=== PATIENT | female | born 1955 | race Caucasian/White ===

== ENCOUNTER 2020-07-09 11:36 | Outpatient (REF) | payer OTHER, SELFPAY ==
--- NOTE | 2020-07-09 11:36 | CT_ITS ---
EXAMINATION: CT CHEST WITHOUT CONTRAST CLINICAL INFORMATION: Follow-up pulmonary nodule COMPARISON: Previous chest CT scans most recent December 2019 TECHNIQUE: Multidetector volumetric CT imaging of the chest was done. Axial MIP volume rendering provided. Sagittal and coronal reformatted images were obtained. This CT examination was performed using dose optimization techniques as appropriate, variously including the following: *Automated exposure control *Adjustment of mA and/or kV according to patient size (this includes techniques or standardized protocols for targeted exams where dose is matched to indication/reason for exam; i.e. extremities or head) *Use of iterative reconstruction technique DLP: 153 mGy-cm FINDINGS: DATA SCIENTIST: LUNGS: There is evidence of emphysema. There is pleural thickening and peripheral or subpleural 3 x 4 mm right upper lobe nodule axial image 114 series 7 that is stable. There are new clustered heterogeneous and groundglass attenuation nodules in the left upper lobe. The largest nodule measures 8 x 14 mm axial image 141 series 7. There are clustered peribronchial nodules and tree-in-bud appearance seen in the posterior segment of the right upper lobe. This appears slightly increased, for example axial image 261 series 7. There is a new adjacent peripheral or subpleural slightly heterogeneous nodule measuring 6 x 16 mm axial image 268 series 7. There are new peribronchial nodules or tree-in-bud appearance in the anterior segment of the right upper lobe. There is an adjacent new peripheral or subpleural nodule measuring 4 x 10 mm axial image 306 series 4. There is a tree-in-bud appearance/airways disease in the right middle lobe that appears increased. There are scattered heterogeneous nodules and nodular opacities seen in both lower lobes that are new some of these have a peribronchial distribution and some appear peripheral. Largest nodule measures 8 mm in the left lower lobe axial image 318 series 7 and 7 mm in the medial right lower lobe adjacent to the esophagus axial image 319 series 7. There is a mild bronchiectasis, bronchial wall thickening and scattered areas of bronchial soft tissue opacification and bronchial nodules in the inferior segment of the lingula that is stable. No endobronchial or endotracheal lesion is seen. MEDIASTINUM: There are no enlarged lymph nodes. The heart does not appear enlarged. There is coronary artery calcification. There is no pericardial effusion. The thoracic aorta is normal in caliber. PLEURA: There is no pleural effusion. No pleural mass or thickening. AXILLA: No lymphadenopathy. UPPER ABDOMEN: The left kidney has been removed. There is evidence of atherosclerotic disease. OSSEOUS STRUCTURES: There are degenerative changes of the spine and scoliosis. IMPRESSION: Interval increase in peribronchial nodules/of tree-in-bud appearance suggestive of increasing airways disease.. Multiple new small groundglass attenuation and heterogeneous nodules, some associated with airways disease disease. Again, waxing and waning appearance favors an infectious or inflammatory process. New postoperative changes from left nephrectomy.
== END 2020-07-09 11:37 | disposition home or self-care (01) ==
LOC: HO.CT 11:36
PROVIDERS: PCP Internal Medicine; Visit Provider Internal Medicine Pulmonary Disease
DX: R91.8 Other nonspecific abnormal finding of lung field (principal)
CPT/HCPCS: 71250

== ENCOUNTER → 2020-07-22 15:18 | Outpatient (BNVA) | payer OTHER, SELFPAY | PROVIDERS: Visit Provider Internal Medicine Pulmonary Disease | DX: J44.9 Chronic obstructive pulmonary disease, unspecified (principal); G47.33 Obstructive sleep apnea (adult) (pediatric); R91.8 Other nonspecific abnormal finding of lung field | CPT/HCPCS: 99214 ==

== ENCOUNTER 2020-08-08 18:18 | Emergency (ER) | payer OTHER, SELFPAY ==
--- NOTE | 2020-08-08 18:49 | ED.URI ---
HPI - URI/Sore Throat General Chief Complaint: Upper Respiratory Symptoms Stated Complaint: fever Time Seen by Provider: 08/08/20 18:46 Source: patient Mode of arrival: ambulatory Limitations: no limitations History of Present Illness HPI Narrative: 65 y/o female with PMH of COPD, bronchiectasis, LANEY on CPAP, former smoker, renal cancer s/p recent nephrectomy who presents with 1 day of chills, fever, cough productive of yellow phlegm. She states today she had a fever of 101 at home which normalized with Tylenol. She has right lower rib pain when she cough and new yellow mucus. She checked her pulse oximetry at home and it briefly read 88% before increasing to mid 90's. She has been using her nebs and inhalers as directed. She denies chest pain, SOB, or RAVI. She denies nausea, vomiting, diarrhea, abd pain, urinary symptoms. MD elicited complaint: fever and cough Pertinent past history: pneumonia and COPD Onset (ago): day(s) (1) Consistency: intermittent Severity: moderate Description of mucous: yellow Able to tolerate fluids by mouth: Yes Exacerbating factors: deep breaths Relieving factors: NSAID and OTC cold medicine Associated symptoms: fever, chills, headache and cough Treatments prior to arrival: acetaminophen Related Data Home Medications Medication Instructions Recorded Confirmed albuterol sulfate 90 mcg/actuation 2 puff INHALATION QID PRN 07/22/20 aerosol inhaler amitriptyline 75 mg tablet 75 mg PO DAILY 07/22/20 atorvastatin 10 mg tablet 10 mg PO DAILY 07/22/20 bupropion HCl 150 mg 24 hr tablet, mg PO 07/22/20 extended release clonazepam 0.5 mg tablet 0.5 mg PO TID 07/22/20 cyclosporine 0.05 % eye drops in a 1 drp OPHTHALMIC (EYE) BID 07/22/20 dropperette fluticasone propionate 220 2 puff INHALATION BID 07/22/20 mcg/actuation HFA aerosol inhaler gabapentin 400 mg capsule 400 mg PO TID 07/22/20 hydrochlorothiazide 25 mg tablet 25 mg PO DAILY 07/22/20 ipratropium 0.5 mg-albuterol 3 mg ml INHALATION 07/22/20 (2.5 mg base)/3 mL nebulization soln nifedipine 30 mg tablet,extended 30 mg PO DAILY 10/21/20 release oxycodone 5 mg tablet 5 mg PO Q4H PRN 07/22/20 polyethylene glycol 3350 17 17 g PO DAILY 07/22/20 gram/dose oral powder sennosides 8.6 mg tablet 8.6 mg PO BEDTIME PRN 07/22/20 Previous Rx's Medication Instructions Recorded dexlansoprazole 60 mg 60 mg PO DAILY 90 Days #90 cap 07/06/20 capsule,biphase delayed release mometasone 0.1 % topical cream 1 applic TOPICAL BID #45 g 07/22/20 umeclidinium 62.5 mcg/actuation 1 inh INHALATION DAILY #30 cap 07/22/20 blister powder for inhalation cefpodoxime 200 mg PO Q12H #20 tab 08/08/20 doxycycline monohydrate 100 mg PO BID #20 cap 08/08/20 guaifenesin [Mucinex] 1,200 mg PO Q12H #10 tab 08/08/20 prednisone 40 mg PO DAILY #10 tab 08/08/20 Allergies Allergy/AdvReac Type Severity Reaction Status Date / Time Sulfa (Sulfonamide Allergy Severe ANAPHYLAXIS Verified 07/22/20 15:25 Antibiotics) Penicillins Allergy Mild RASH Verified 07/22/20 15:25 aspirin [ASA] Allergy Unknown UNKNOWN, Verified 07/22/20 15:25 stomach upset codeine [Codeine] Allergy Unknown NAUSEA & Verified 07/22/20 15:25 VOMITING diphenhydramine [Advil PM] Allergy Unknown Unknown Verified 07/22/20 15:25 ibuprofen [From ADVIL] Allergy Unknown UNKNOWN Verified 07/22/20 15:25 penicillin V Allergy Unknown anaphylaxis Verified 07/22/20 15:25 Review of Systems Review of Systems: Constitutional: + Fever, + Chills ENT/Mouth: No sore throat, No Rhinorrhea, No Swallowing Difficulty Eyes: No Eye Pain, No Swelling, No Redness Cardiovascular: No Chest Pain, No SOB, No Orthopnea, No Edema Respiratory: + Cough, + Sputum, No Wheezing, No dyspnea Gastrointestinal: No Nausea, No Vomiting, No Diarrhea, No abdominal Pain Genitourinary: No Dysuria, No Urinary Frequency, No Hematuria Musculoskeletal: No joint pain, No Myalgias Skin: No Skin Lesions, No rash Neuro: No Weakness, No Numbness, No Dizziness, + Mild Headache Psych: No Anxiety/Panic, No Depression Heme/Lymph: No Bruising, No Lymphadenopathy Endocrine: No Polyuria, No Polydipsia PMF Past Medical History Attestation statement: The following information was validated with the patient. Medical History (Updated 08/08/20 @ 20:31 by OMAIRA Crowder) GERD (gastroesophageal reflux disease) Surgical History (Updated 08/08/20 @ 19:07 by OMAIRA Crowder) History of nephrectomy Social History Social History (Updated 07/22/20 @ 15:25 by Pauline Obregon MA) Alcohol intake: never Smoking Status: Former smoker Years Smoked: 35 yrs Smoked in Last 30 Days: No Use of substances other than those prescribed or required for medical reasons: No Advance Directives: No Advance Directives Information Provided: No Physical Exam Vital Signs: Vital Signs: Last Vital Signs Temp 97.5 F 08/08/20 20:29 Pulse 92 08/08/20 20:29 Resp 16 08/08/20 20:29 BP 119/70 08/08/20 20:29 Pulse Ox 94 08/08/20 20:40 Body Mass Index 22.4 Appearance: Alert. Oriented X3. No acute distress. Eyes: Pupils equal, round and reactive to light. ENT: Pharynx normal. Neck: Normal inspection. Neck supple. CVS: tachycardic, regular rhythm. Pulses normal. Respiratory: No respiratory distress. Decreased breath sounds RLL with coarseness at bilateral bases, no wheezes. Abdomen: Soft and nontender. +BS x4 Skin: Skin warm and dry. Normal skin color. Normal skin turgor. No rashes. Extremities: No lower extremity edema. Negative Prasanth's sign. Neuro: Oriented X 3. No motor deficit. No sensory deficit. Course Course Course Narrative: 65 y/o with COPD, bronchiectasis presenting with fever 101, productive cough of yellow phlegm with generalized malaise. No SOB, RAVI, chest pain. She feels like she is getting another bout of pneumonia. She had a recent CT scan in Jul showing tree in bud opacities with plan to repeat it in 4 months. Possible COVID vs bacterial pneumonia. HR 112 on triage, now 103. She states her HR is always around 100-104, she has a FitBit and monitors it daily. Doubt PE given no SOB, chest pain and in the setting of fevers, malaise and productive cough more likely PNA. Will need to check ambulatory pulse oximetry. She is currently refusing blood work. Reevaluation(s) Reevaluation #1: CXR shows worsening pulmonary infiltrates right upper lobe, right lower lobe and left lower lobe. Patient continues to deline blood work. Agreeable to ambulatory pulse ox. If stable feel comfortable d/c'ing home with dual abx, prednisone taper, and PRN nebulizers at home. She agrees to monitor her O2 sats at home and follow up with her doctor on Monday. Reevaluation #2: Pulse ox remained 94% with ambulation. HR 80-100 wtih exertion and she had no dyspnea, SOB or chest pain. She is stable for discharge. Procedures Pulse Oximetry Interpretation Digit-Finger: Initial pulse oximetry readin Pulse Oximetry: 94 Actions Taken: none Additional Comments: pulse oximetry remained 94% at rest and with exertion. MDM - URI/Sore Throat Differential Diagnosis Differential diagnosis: Likely upper respiratory infection, viral infection, bronchitis, influenza and pharyngitis Medical Records Attestation: I reviewed the patient's medical records. Discharge Plan Discharge Clinical Impression: Pneumonia Qualifiers: Pneumonia type: due to unspecified organism Laterality: bilateral Lung location: lower lobe of lung Qualified Code(s): J18.9 - Pneumonia, unspecified organism Patient Disposition: Home, Self-Care Instructions: Bacterial Pneumonia (ED) Additional Instructions: You were tested for COVID-19 today. We will call you with the results in 2-4 days. Your chest x-ray today showed pneumonia in both lungs. We will start you on 2 antibiotics and steroids to help treat your pneumonia. Stay hydrated. Rest. Recommend using your nebulizer 2-3 times throughout the day while you are sick. Your oxygen levels were normal in the Emergency Room, including when you were walking. Encourage you to continue to monitor your oxygen levels at home with your pulse oximeter. If they are <88% or if you develop shortness of breath, difficulty breathing or chest pain call 911 or come back to the ER right way for further evaluation. Follow up with your doctor Monday morning. Prescriptions: New doxycycline monohydrate 100 mg capsule 100 mg PO BID Qty: 20 RF: 0 cefpodoxime 200 mg tablet 200 mg PO Q12H Qty: 20 RF: 0 prednisone 20 mg tablet 40 mg PO DAILY Qty: 10 RF: 0 Mucinex 1,200 mg tablet extended release 12hr 1,200 mg PO Q12H Qty: 10 RF: 0 No Action Dexilant 60 mg capsule,biphase delayed releas 60 mg PO DAILY 90 Days Qty: 90 RF: 3 mometasone 0.1 % cream 1 applic topical BID Qty: 45 RF: 0 umeclidinium [Incruse Ellipta] 62.5 mcg/actuation blister with device 1 inh inhalation DAILY Qty: 30 RF: 0
[2020-08-08 19:14] VITALS: BP 114/57; PULSE 112; RESP 16; TEMP 37.1; O2SAT 94; BMI 22.4
--- NOTE | 2020-08-08 19:20 | XR_ITS ---
EXAMINATION: XR CHEST CLINICAL INFORMATION: Fever with history of pneumonia COMPARISON: Chest CT dated 07/09/2020 and chest radiograph dated 01/24/2020 TECHNIQUE: Frontal view of the chest was obtained. FINDINGS: There is been significant worsening of appearances when compared to the prior CT from 07/09/2020. There is been progression of infiltrates present in the right upper lobe right lower lobe and left lower lobe. The right upper lobe is relatively spared. No pleural effusions are seen. On the CT scan, most of these findings appear to enhance tree-in-bud abnormalities but they are now significantly worse appearing more like consolidation/infiltrate. XR/XR chest 1V IMPRESSION: Worsening pulmonary infiltrates right upper lobe, right lower lobe and left lower lobe.
[2020-08-08 20:29] VITALS: BP 119/70; PULSE 92; RESP 16; TEMP 36.4; O2SAT 93
[2020-08-08 20:40] VITALS: O2SAT 94
== END 2020-08-08 20:56 | disposition home or self-care (01) ==
PROVIDERS: Physician Assistant; Emergency Provider Emergency Medicine; PCP Internal Medicine
DX: J18.9 Pneumonia, unspecified organism (principal); R05 Cough; R50.9 Fever, unspecified; Z79.899 Other long term (current) drug therapy; Z20.828 Contact with and (suspected) exposure to other viral communicable diseases; Z87.891 Personal history of nicotine dependence
CPT/HCPCS: 71045; 99283; 99284; U0003

== ENCOUNTER 2020-08-20 16:28 | Outpatient (REF) | payer OTHER, SELFPAY ==
[2020-08-20 17:27] LABS: Hematocrit 42.7 % (37-47); Hemoglobin 14.3 g/dl (12.0-16.0); Mean Corpuscular HGB Conc 33.5 g/dl (31.0-35.0); Mean Corpuscular Hemoglobin 30.3 pg (27.0-33.0); Mean Corpuscular Volume 90.5 fL (80-98); Mean Platelet Volume 8.8 fL (9.4-12.3); Platelet Count 396 X10*3/uL (160-400); Red Blood Count 4.72 X10*6/uL (4.20-5.50); Red Cell Distribution Width 11.9 % (11.0-16.0); White Blood Count 10.4 X10*3/uL (4.8-10.8)
[2020-08-20 17:34] LABS: Prothrombin Time 12.1 SEC (10.8-13.0)
[2020-08-20 17:48] LABS: Iron 88 mcg/dL (30-160); Percent Iron Saturation 25 % (15-50); Total Iron Binding Capacity 350 mcg/dL (228-428); Unsaturated Iron Binding 262 ug/dL
[2020-08-20 18:09] LABS: TSH reflex Free T4 2.37 mIU/mL (0.32-4.0)
[2020-08-20 18:21] LABS: Folate 3.9 ng/mL (> or = 4.0); Vitamin B12 510 pg/mL (200-900)
[2020-08-21 13:01] LABS: Ristocetin Cofactor 131 % NORMAL (42-200); Von Willebrand Factor Antigen 139 % (50-217)
[2020-08-21 13:27] LABS: Factor VIII Activity 147 % normal (50-180)
== END 2020-08-20 16:29 | disposition home or self-care (01) ==
LOC: HO.LAB 16:28
PROVIDERS: PCP Internal Medicine; Visit Provider Physician Assistant
DX: R23.8 Other skin changes (principal)
CPT/HCPCS: 36415; 82607; 82746; 83540; 84443; 85027; 85240; 85246; 85610

== ENCOUNTER 2020-09-16 12:15 | Outpatient (REF) | payer OTHER, SELFPAY ==
--- NOTE | 2020-09-16 12:20 | XR_ITS ---
EXAMINATION: XR CHEST CLINICAL INFORMATION: Chest pain COMPARISON: August 08, 2020 TECHNIQUE: 2 views of the chest were obtained. FINDINGS: There has been improvement in previously noted right upper lobe and right middle lobe disease since study of August 08, 2020 and no new focus of disease is appreciated. Heart normal size. No evidence of pulmonary edema. No pneumothorax or pleural effusion. XR/XR chest 2V IMPRESSION: Improving disease within the right upper lobe and right middle lobe.
== END 2020-09-16 12:16 | disposition home or self-care (01) ==
LOC: HO.XRAY 12:15
PROVIDERS: PCP Internal Medicine; Visit Provider Internal Medicine
DX: R07.9 Chest pain, unspecified (principal)
CPT/HCPCS: 71046

== ENCOUNTER 2020-10-07 14:20 | Outpatient (REF) | payer OTHER, SELFPAY | END 2020-10-07 14:21 | disposition home or self-care (01) | LOC: HO.LAB 14:20 | PROVIDERS: PCP Internal Medicine; Visit Provider Internal Medicine | DX: Z20.828 Contact with and (suspected) exposure to other viral communicable diseases (principal); R05 Cough; R50.9 Fever, unspecified | CPT/HCPCS: C9803; U0003 ==

== ENCOUNTER 2020-10-08 17:29 | Outpatient (REF) | payer OTHER, SELFPAY ==
--- NOTE | 2020-10-08 17:55 | XR_ITS ---
EXAMINATION: XR CHEST CLINICAL INFORMATION: Cough COMPARISON: Chest x-ray 09/16/2020. CT chest 07/09/2020 TECHNIQUE: 2 views of the chest were obtained. FINDINGS: There is multifocal patchy and hazy airspace opacities in throughout the right lung. There are patchy areas in the right upper lobe right lower lobe. These have progressed since the prior exam of 09/16/2020. There is suggestion of smaller hazy airspace opacity in the left mid lower lung in the perihilar lung. No pleural effusion. Heart size is normal. Cardiac and mediastinal contours are normal. There is no pulmonary vascular congestion. XR/XR chest 2V IMPRESSION: Multifocal airspace disease mostly affecting the right lung with possible small left perihilar airspace opacities well. Airspace disease has progressed since prior study of 09/16/2020.
== END 2020-10-08 17:30 | disposition home or self-care (01) ==
LOC: HO.XRAY 17:29
PROVIDERS: PCP Internal Medicine; Visit Provider Internal Medicine
DX: R05 Cough (principal)
CPT/HCPCS: 71046

== ENCOUNTER 2020-10-23 18:40 | Outpatient (REF) | payer OTHER, SELFPAY | END 2020-10-23 18:41 | disposition home or self-care (01) | LOC: HO.LNP 18:40 | PROVIDERS: Visit Provider Internal Medicine | DX: Z20.822 Contact with and (suspected) exposure to COVID-19 (principal); R50.9 Fever, unspecified | CPT/HCPCS: U0003 ==

== ENCOUNTER 2020-10-26 14:14 | Outpatient (REF) | payer OTHER, SELFPAY ==
[2020-10-26 15:28] LABS: Hematocrit 36.8 % (37-47); Hemoglobin 12.2 g/dl (12.0-16.0); Mean Corpuscular HGB Conc 33.2 g/dl (31.0-35.0); Mean Corpuscular Hemoglobin 29.3 pg (27.0-33.0); Mean Corpuscular Volume 88.5 fL (80-98); Mean Platelet Volume 9.2 fL (9.4-12.3); Platelet Count 397 X10*3/uL (160-400); Red Blood Count 4.16 X10*6/uL (4.20-5.50); Red Cell Distribution Width 11.9 % (11.0-16.0); White Blood Count 11.8 X10*3/uL (4.8-10.8)
[2020-10-26 15:50] LABS: Alanine Aminotransferase 12 U/L (0-31); Albumin Level 3.9 g/dL (3.5-5.0); Alkaline Phosphatase 103 U/L (39-117); Anion Gap 13 (12-20); Aspartate Amino Transferase 16 U/L (5-31); Bilirubin Direct 0.2 mg/dL (0.0-0.5); Bilirubin Total 0.6 mg/dL (0.0-1.0); Blood Urea Nitrogen 7 mg/dL (9-16); Calcium 8.6 mg/dL (8.4-10.2); Carbon Dioxide 36 mmol/L (22-29); Chloride 88 mmol/L (96-108); Estimated Glomerular Filt Rate > 60; Glucose Random 106 mg/dL (60-115); Potassium 3.1 mmol/l (3.3-5.1); Sodium 134 mmol/L (135-145); Total Protein 6.7 g/dL (6.5-8.0)
== END 2020-10-26 14:15 | disposition home or self-care (01) ==
LOC: HO.LAB 14:14
PROVIDERS: PCP Internal Medicine; Visit Provider Internal Medicine
DX: R50.9 Fever, unspecified (principal)
CPT/HCPCS: 36415; 80048; 80076; 85027

== ENCOUNTER 2020-10-28 14:38 | Outpatient (REF) | payer OTHER, SELFPAY ==
--- NOTE | 2020-10-28 14:42 | XR_ITS ---
EXAMINATION: XR CHEST CLINICAL INFORMATION: Chest pain. COMPARISON: Chest 10/08/2020 TECHNIQUE: 2 views of the chest were obtained. FINDINGS: The lungs are well-expanded with mild tenting of the left anterior diaphragm. There is increased interstitial throughout both lungs without confluent infiltrate. Likely interstitial pneumonitis, slightly improved since 10/08/2020 exam. No pleural effusion seen. The heart size is normal. No gross bony abnormality. XR/XR chest 2V IMPRESSION: Bilateral interstitial pneumonitis/infiltrate. The right-sided diffuse infiltrates have improved since 10/08/2020 Heart size is normal. Mild tenting of left hemidiaphragm
== END 2020-10-28 14:39 | disposition home or self-care (01) ==
LOC: HO.XRAY 14:38
PROVIDERS: PCP Internal Medicine; Visit Provider Internal Medicine
DX: R07.9 Chest pain, unspecified (principal)
CPT/HCPCS: 71046

== ENCOUNTER 2020-11-20 11:29 | Outpatient (REF) | payer OTHER, SELFPAY ==
--- NOTE | ~2020-11-20 | CT_ITS ---
EXAMINATION: CT CHEST WITHOUT CONTRAST CLINICAL INFORMATION: Other nonspecific abnormal finding of lung field COMPARISON: Chest x-ray 10/28/[address] chest 07/09/2020 TECHNIQUE: Multidetector volumetric CT imaging of the chest was done. Axial MIP volume rendering provided. Sagittal and coronal reformatted images were obtained. This CT examination was performed using dose optimization techniques as appropriate, variously including the following: *Automated exposure control *Adjustment of mA and/or kV according to patient size (this includes techniques or standardized protocols for targeted exams where dose is matched to indication/reason for exam; i.e. extremities or head) *Use of iterative reconstruction technique DLP: 137 mGy-cm FINDINGS: GRAB HOOKER: Convex left lumbar rotoscoliosis. Symmetrically expanded lung volumes. LUNGS: Multifocal areas of irregular reticulation and groundglass opacity are seen within the lungs bilaterally. Generally these are new or worsened from the prior study. There were similar appearing abnormalities in the prior study 07/09/2020 although the locations of involvement appear to be different suggesting that the prior abnormalities resolved in the currently seen findings are new in the interval. There is mild bilateral bronchiectasis. MEDIASTINUM: Normal sized mediastinal lymph nodes are present. No definite hilar lymphadenopathy. Normal caliber thoracic aorta. Coronary artery calcification. Normal heart size. Small pericardial effusion. PLEURA: There is no pleural effusion. No pleural mass or thickening. AXILLA: No lymphadenopathy. UPPER ABDOMEN: Unremarkable. OSSEOUS STRUCTURES: Unremarkable. CT/CT chest wo con IMPRESSION: Multifocal areas of irregular reticulation and groundglass opacity are seen within the lungs bilaterally. Generally these are new or worsened from the prior study. There were similar appearing abnormalities in the prior study 07/09/2020 although the locations of involvement appear to be different suggesting that the prior abnormalities resolved in the currently seen findings are new in the interval. These findings are in keeping with the evolving abnormalities on recent prior chest x-rays. The appearance suggests a waxing and waning infectious or inflammatory process.
== END 2020-11-20 11:30 | disposition home or self-care (01) ==
LOC: HO.CT 11:29
PROVIDERS: PCP Internal Medicine; Visit Provider Internal Medicine Pulmonary Disease
DX: R91.8 Other nonspecific abnormal finding of lung field (principal)
CPT/HCPCS: 71250

== ENCOUNTER → 2020-11-25 11:20 | Outpatient (BNVA) | payer OTHER, SELFPAY | PROVIDERS: Visit Provider Internal Medicine Pulmonary Disease | DX: Z76.89 Persons encountering health services in other specified circumstances (principal) | CPT/HCPCS: Q3014 ==

== ENCOUNTER 2020-11-26 11:11 | Outpatient (REF) | payer OTHER, SELFPAY ==
--- NOTE | ~2020-11-26 | XR_ITS ---
EXAMINATION: XR FOOT, RIGHT CLINICAL INFORMATION: History falling, trauma COMPARISON: Radiographs right foot 08/10/2012 TECHNIQUE: AP, lateral, and oblique views of the right foot. FINDINGS: There is no fracture or dislocation or destructive process. The retrocalcaneal recess is preserved. Subtalar joint not well visualized on lateral view likely related to positioning. There is mild hallux valgus of approximately 22 degrees on the nonweightbearing views. There are degenerative changes first MTP with mild joint narrowing. Cystic changes are present in the first metatarsal head and there is small medial bunion. The remainder of the midfoot and forefoot show no joint narrowing or erosive changes. XR/XR foot RT min 3V IMPRESSION: First MTP hallux valgus with degenerative changes and bunion.
== END 2020-11-26 11:12 | disposition home or self-care (01) ==
LOC: HO.XRAY 11:11
PROVIDERS: PCP Internal Medicine; Visit Provider Internal Medicine
DX: M79.671 Pain in right foot (principal); Z91.81 History of falling
CPT/HCPCS: 73630

== ENCOUNTER 2020-12-04 10:27 | Outpatient (REF) | payer OTHER, SELFPAY ==
--- NOTE | ~2020-12-04 | CT_ITS ---
EXAMINATION: CT ABDOMEN WITHOUT AND WITH CONTRAST CLINICAL INFORMATION: Malignant neoplasm of left kidney. COMPARISON: CT abdomen and pelvis 06/09/2020 TECHNIQUE: Contiguous axial thin section helical images of the abdomen were performed before and after the administration of 65 mL of Omnipaque 350 intravenous contrast. The data set was reformatted in the coronal and sagittal planes and reviewed on an independent workstation. This CT examination was performed using dose optimization techniques as appropriate, variously including the following: *Automated exposure control *Adjustment of mA and/or kV according to patient size (this includes techniques or standardized protocols for targeted exams where dose is matched to indication/reason for exam; i.e. extremities or head) *Use of iterative reconstruction technique DLP: 286 mGy-cm FINDINGS: LUNG BASES: Minimal patchy reticular opacities seen in the right lower lobe with no discrete pulmonary nodule seen. There is likely focal atelectasis right lung base. LIVER, GALLBLADDER, AND BILIARY TREE: The liver is homogeneous in density, and normal contour. The right hepatic lobe is enlarged extending to the iliac crest and beyond. It measures approximately 11-12 cm. Gallbladder is small and contracted. PANCREAS: Unremarkable. SPLEEN: Unremarkable. ADRENAL GLANDS AND KIDNEYS: The adrenal gland is unremarkable. The left kidney has been surgically removed. Normal cortical right renal nephrogram is noted. There are no echogenic stones, hydronephrosis. No cystic or solid lesions seen. BOWEL LOOPS: There is scattered stool and gas seen throughout the colon without any significant distention. The small bowel loops are normal caliber. Appendix is not seen with certainty. No free air or free fluid. LYMPH NODES: No abnormal size. VASCULAR: There is atherosclerotic calcification of abdominal aorta without aneurysmal dilatation. BONES: Degenerative disc changes upper lumbar spine with ventral spondylosis and endplate sclerosis. No fracture or lytic process seen. CT/CT abdomen wo/w con IMPRESSION: Surgically absent left kidney. The right kidney appears unremarkable. No radiopaque calculi or hydronephrosis seen. There is mild prominence of right proximal ureter, nonspecific.
[2020-12-04 11:12] LABS: Blood Urea Nitrogen 7 mg/dL (9-16); Estimated Glomerular Filt Rate > 60
[2020-12-04] MEDS: iohexoL 350 MG/ML 75 ML INFUS..BTL IV (11:31)
== END 2020-12-04 10:28 | disposition home or self-care (01) ==
LOC: HO.CT 10:27
PROVIDERS: PCP Internal Medicine; Visit Provider Urology
DX: C64.2 Malignant neoplasm of left kidney, except renal pelvis (principal); N26.1 Atrophy of kidney (terminal)
CPT/HCPCS: 36415; 74170; 82565; 84520; Q9967

== ENCOUNTER → 2020-12-22 16:12 | Outpatient (BNVA) | payer OTHER, SELFPAY | PROVIDERS: PCP Internal Medicine; Visit Provider Urology | CPT/HCPCS: Q3014 ==

== ENCOUNTER 2021-01-26 15:10 | Outpatient (REF) | payer OTHER, SELFPAY ==
--- NOTE | ~2021-01-26 | XR_ITS ---
EXAMINATION: XR CHEST CLINICAL INFORMATION: Chest pain COMPARISON: Chest CT November 20, 2020 and chest x-ray October 28, 2020 and chest x-ray August 08, 2020 TECHNIQUE: 2 views of the chest were obtained. FINDINGS: Cardiac silhouette is normal in size. Lungs are adequately aerated. Persistent but improved patchy bilateral airspace opacities, particularly improved within the left hemithorax. There is no gross lobar consolidation. No pleural effusion or pneumothorax. Mild degenerative changes of the spine. XR/XR chest 2V IMPRESSION: Again noted is patchy bilateral airspace disease. There is a waxing and waning picture of patchy bilateral airspace disease over several prior chest x-rays dating back to at least August 08, 2020. Findings suggest impacting and waning inflammatory or infectious process. Clinical correlation recommended.
== END 2021-01-26 15:11 | disposition home or self-care (01) ==
LOC: HO.HMGCX 15:10
PROVIDERS: PCP Internal Medicine; Visit Provider Nurse Practitioner Family
DX: R07.89 Other chest pain (principal); R05 Cough
CPT/HCPCS: 71046

== ENCOUNTER 2021-02-02 15:51 | Outpatient (REF) | payer OTHER, SELFPAY ==
[2021-02-02 16:44] LABS: MANUAL DIFF FLAG NO
[2021-02-02 16:54] LABS: Basophils Absolute Auto 0.1 X10*3/uL (0.0-0.2); Basophils Percent Auto 0.6 % (0-2); Eosinophils Absolute Auto 0.2 X10*3/uL (0.0-0.4); Eosinophils Percent Auto 2.6 % (0-4); Hemoglobin 12.5 g/dl (12.0-16.0); Imm Gran Abs Auto 0.05 X10*3/uL (0.00-0.03); Imm Gran Pct Auto 0.6 % (0.0-0.4); Lymphocytes Absolute Auto 0.9 X10*3/uL (1.2-4.9); Lymphocytes Percent Auto 10.3 % (20-40); Mean Corpuscular HGB Conc 32.9 g/dl (31.0-35.0); Mean Corpuscular Hemoglobin 28.4 pg (27.0-33.0); Mean Corpuscular Volume 86.4 fL (80-98); Mean Platelet Volume 8.7 fL (9.4-12.3); Monocytes Absolute Auto 0.8 X10*3/uL (0.1-1.2); Monocytes Percent Auto 8.6 % (2-11); Neutrophils Absolute Auto 6.9 X10*3/uL (2.0-8.3); Neutrophils Percent Auto 77.3 % (45-73); Platelet Count 409 X10*3/uL (160-400); Red Cell Distribution Width 13.2 % (11.0-16.0)
[2021-02-02 17:01] LABS: D Dimer 316 NG/ML
[2021-02-02 17:29] LABS: Anion Gap 12 (12-20); Blood Urea Nitrogen 6 mg/dL (9-16); Calcium 9.4 mg/dL (8.4-10.2); Carbon Dioxide 37 mmol/L (22-29); Chloride 89 mmol/L (96-108); Estimated Glomerular Filt Rate > 60; Glucose Random 116 mg/dL (60-115); Potassium 3.8 mmol/L (3.3-5.1); Sodium 134 mmol/L (135-145)
== END 2021-02-02 15:52 | disposition home or self-care (01) ==
LOC: HO.LAB 15:51
PROVIDERS: Nurse Practitioner Family; PCP Internal Medicine; Visit Provider Urology
DX: R07.89 Other chest pain (principal); N39.0 Urinary tract infection, site not specified; R05 Cough; R07.81 Pleurodynia
CPT/HCPCS: 36415; 80048; 85025; 85379; 87086

== ENCOUNTER 2021-02-16 13:27 | Outpatient (REF) | payer OTHER, SELFPAY ==
[2021-02-16 14:18] LABS: MANUAL DIFF FLAG NO
[2021-02-16 14:21] LABS: Basophils Absolute Auto 0.1 X10*3/uL (0.0-0.2); Basophils Percent Auto 0.3 % (0-2); Eosinophils Absolute Auto 0.2 X10*3/uL (0.0-0.4); Eosinophils Percent Auto 1.5 % (0-4); Hematocrit 36.6 % (37-47); Hemoglobin 12.1 g/dl (12.0-16.0); Imm Gran Abs Auto 0.06 X10*3/uL (0.00-0.03); Imm Gran Pct Auto 0.4 % (0.0-0.4); Lymphocytes Absolute Auto 0.8 X10*3/uL (1.2-4.9); Lymphocytes Percent Auto 4.8 % (20-40); Mean Corpuscular HGB Conc 33.1 g/dl (31.0-35.0); Mean Corpuscular Hemoglobin 28.2 pg (27.0-33.0); Mean Corpuscular Volume 85.3 fL (80-98); Mean Platelet Volume 9.2 fL (9.4-12.3); Monocytes Percent Auto 5.9 % (2-11); Neutrophils Absolute Auto 14.2 X10*3/uL (2.0-8.3); Neutrophils Percent Auto 87.1 % (45-73); Platelet Count 424 X10*3/uL (160-400); Red Blood Count 4.29 X10*6/uL (4.20-5.50); White Blood Count 16.3 X10*3/uL (4.8-10.8)
[2021-02-16 14:38] LABS: Glucose Urine UA NEG (NEG); Leukocyte Esterase Urine 2+ (NEG); Nitrite Urine NEG (NEG); Specific Gravity - Urine 1.015 (1.005-1.025); UACC Culture Trigger YES; Urine Blood NEG (NEG); Urine Ketones NEG (NEG); Urine Protein NEG (NEG-TRACE)
[2021-02-16 14:41] LABS: Appearance Urine CLOUDY; Color Urine YELLOW
[2021-02-16 14:51] LABS: Alanine Aminotransferase 10 U/L (0-31); Albumin Level 3.8 g/dL (3.5-5.0); Alkaline Phosphatase 98 U/L (39-117); Anion Gap 14 (12-20); Aspartate Amino Transferase 11 U/L (5-31); Bilirubin Total 0.5 mg/dL (0.0-1.0); Blood Urea Nitrogen 6 mg/dL (9-16); Calcium 9.2 mg/dL (8.4-10.2); Carbon Dioxide 36 mmol/L (22-29); Chloride 89 mmol/L (96-108); Estimated Glomerular Filt Rate > 60; Glucose Random 106 mg/dL (60-115); Potassium 3.6 mmol/L (3.3-5.1); RBC Urine 0 /HPF (0); Renal Epithelial Cells Urine TRACE /LPF; Sodium 135 mmol/L (135-145); Squamous Epithelial Cell Urine 1+ /LPF; Total Protein 6.7 g/dL (6.5-8.0)
[2021-02-16 14:58] LABS: Erythrocyte Sedimentation Rate 65 MM/HR (0-20)
[2021-02-17 13:46] LABS: Lyme Abs Screen <0.90 index
[2021-02-18 13:32] LABS: Anti Nuclear Antibody Screen NEGATIVE (NEGATIVE)
[2021-02-19 23:56] LABS: TS Negative Control Passed; TS Panel A 0; TS Panel B 0; TS Positive Control Passed; TSpotTB Negative (SeeBelow)
== END 2021-02-16 13:28 | disposition home or self-care (01) ==
LOC: HO.LAB 13:27
PROVIDERS: PCP Internal Medicine; Visit Provider Internal Medicine
DX: Z11.1 Encounter for screening for respiratory tuberculosis (principal); R50.9 Fever, unspecified
CPT/HCPCS: 80053; 81001; 81003; 82550; 85025; 85652; 86038; 86039; 86140; 86481; 86617; 86618; 87086; U0005

== ENCOUNTER 2021-02-16 13:59 | Outpatient (REF) | payer OTHER, SELFPAY ==
[2021-02-16 14:18] LABS: COVID-19 Test Negative (Negative); IDNOW Serial# 55D5AD1C
== END 2021-02-16 14:00 | disposition home or self-care (01) ==
LOC: HO.LAB 13:59
PROVIDERS: PCP Internal Medicine; Visit Provider Internal Medicine
DX: Z20.822 Contact with and (suspected) exposure to COVID-19 (principal)
CPT/HCPCS: 36415; 87635; C9803

== ENCOUNTER → 2021-02-23 13:34 | Outpatient (BNVA) | payer OTHER, SELFPAY | PROVIDERS: PCP Internal Medicine; Visit Provider Internal Medicine Pulmonary Disease | DX: J47.9 Bronchiectasis, uncomplicated (principal); G47.33 Obstructive sleep apnea (adult) (pediatric); K21.9 Gastro-esophageal reflux disease without esophagitis; J44.9 Chronic obstructive pulmonary disease, unspecified; R91.8 Other nonspecific abnormal finding of lung field | CPT/HCPCS: 99212 ==

== ENCOUNTER 2021-02-25 10:22 | Outpatient (REF) | payer OTHER, SELFPAY ==
--- NOTE | ~2021-02-25 | XR_ITS ---
EXAMINATION: XR SHOULDER, LEFT CLINICAL INFORMATION: Shoulder pain. COMPARISON: X-ray left humerus 11/29/2019. TECHNIQUE: Four views of the left shoulder. FINDINGS: [id number] acromioclavicular arthritis. No fracture. Glenohumeral and acromioclavicular alignment is anatomic with normal joint space. No abnormal soft tissue calcifications. XR/XR shoulder LT min 2V IMPRESSION: [id number] acromioclavicular arthritis.
--- NOTE | ~2021-02-25 | XR_ITS ---
EXAMINATION: XR ELBOW, LEFT CLINICAL INFORMATION: Elbow pain. COMPARISON: None TECHNIQUE: AP, lateral, and oblique views of the left elbow. FINDINGS: Bony spurring at the medial and lateral humeral epicondyle. No fracture or joint effusion. Alignment is anatomic. Joint spaces are maintained. XR/XR elbow LT min 3V IMPRESSION: No evidence of acute osseous abnormality. Spurring of the medial and lateral humeral epicondyle.
== END 2021-02-25 10:23 | disposition home or self-care (01) ==
LOC: HO.XRAY 10:22
PROVIDERS: Absent Provider Internal Medicine; PCP Internal Medicine; Visit Provider Hospitalist
DX: M25.522 Pain in left elbow (principal); M25.521 Pain in right elbow
CPT/HCPCS: 73030; 73080

== ENCOUNTER 2021-03-16 15:50 | Outpatient (REF) | payer OTHER, SELFPAY ==
--- NOTE | ~2021-03-16 | XR_ITS ---
EXAMINATION: XR CHEST CLINICAL INFORMATION: Cough. Airspace opacities. Follow-up. COMPARISON: Chest radiographs 01/26/2021, 10/28/2020, 09/16/2020, CT chest noncontrast March 20, 2021. TECHNIQUE: 2 views of the chest were obtained. FINDINGS: There are scattered groundglass opacities, greater on the right. The severity and distribution appears similar to the CT chest 11/20/2020. There is no confluent lobar or segmental airspace consolidation. The costophrenic sulci are clear and there is no effusion. The cardiac and hilar and mediastinal contours are unremarkable. Again, there is dextrocurvature thoracolumbar spine. No acute bony abnormality. XR/XR chest 2V IMPRESSION: Scattered groundglass opacities, greater on right. Distribution and severity similar to the CT chest 11/20/2020. No lobar or segmental airspace consolidation or effusion.
== END 2021-03-16 15:51 | disposition home or self-care (01) ==
LOC: HO.XRAY 15:50
PROVIDERS: PCP Internal Medicine; Visit Provider Internal Medicine
DX: R07.89 Other chest pain (principal); R05 Cough; J44.9 Chronic obstructive pulmonary disease, unspecified; Z79.899 Other long term (current) drug therapy; Z79.51 Long term (current) use of inhaled steroids; Z72.0 Tobacco use
CPT/HCPCS: 71046; 99212

== ENCOUNTER 2021-07-05 12:37 | Outpatient (REF) | payer OTHER, SELFPAY ==
--- NOTE | ~2021-07-05 | US_ITS ---
EXAMINATION: US RETROPERITONEAL COMPLETE (RENAL) CLINICAL INFORMATION: Malignant neoplasm of the left kidney. COMPARISON: CT abdomen 12/04/2020 and renal ultrasound December 2019 TECHNIQUE: Real-time imaging of the kidneys. FINDINGS: RIGHT KIDNEY: 12.8 x 4.1 x 5.1 cm (SAG x AP x TRV). The kidney is normal in size, contour, and echogenicity. Renal cortical thickness is normal. No calculi or focal parenchymal lesions. No hydronephrosis. LEFT KIDNEY: Removed. US/US renal RT IMPRESSION: Normal right kidney.
--- NOTE | ~2021-07-05 | XR_ITS ---
EXAMINATION: XR KNEE, RIGHT XR KNEE, LEFT CLINICAL INFORMATION: Pain. COMPARISON: Right lower leg radiographs dated 06/26/2017. TECHNIQUE: AP, lateral, and sunrise views of the right and left knee. FINDINGS: Right Knee: No acute fracture or dislocation. No significant joint space narrowing. Tiny patellofemoral marginal osteophytes. No osseous erosion. Trace joint effusion. Atherosclerotic calcifications. Left Knee: No acute fracture or dislocation. No significant joint space narrowing. Tiny patellofemoral marginal osteophytes. No osseous erosion. Atherosclerotic calcifications. No significant joint effusion. XR/XR knee RT 3V IMPRESSION: RIGHT KNEE: Minimal patellofemoral arthrosis, new when compared to the prior examination. Trace joint effusion. LEFT KNEE: Minimal patellofemoral arthrosis.
--- NOTE | ~2021-07-05 | XR_ITS ---
EXAMINATION: XR KNEE, RIGHT XR KNEE, LEFT CLINICAL INFORMATION: Pain. COMPARISON: Right lower leg radiographs dated 06/26/2017. TECHNIQUE: AP, lateral, and sunrise views of the right and left knee. FINDINGS: Right Knee: No acute fracture or dislocation. No significant joint space narrowing. Tiny patellofemoral marginal osteophytes. No osseous erosion. Trace joint effusion. Atherosclerotic calcifications. Left Knee: No acute fracture or dislocation. No significant joint space narrowing. Tiny patellofemoral marginal osteophytes. No osseous erosion. Atherosclerotic calcifications. No significant joint effusion. XR/XR knee LT 3V IMPRESSION: RIGHT KNEE: Minimal patellofemoral arthrosis, new when compared to the prior examination. Trace joint effusion. LEFT KNEE: Minimal patellofemoral arthrosis.
== END 2021-07-05 12:38 | disposition home or self-care (01) ==
LOC: HO.US 12:37
PROVIDERS: PCP Internal Medicine; Visit Provider Urology
DX: M25.561 Pain in right knee (principal); M25.562 Pain in left knee; C64.2 Malignant neoplasm of left kidney, except renal pelvis
CPT/HCPCS: 73562; 76775

== ENCOUNTER → 2021-07-08 14:33 | Outpatient (BNVA) | payer OTHER, SELFPAY | PROVIDERS: PCP Internal Medicine; Visit Provider Internal Medicine Pulmonary Disease | DX: J47.9 Bronchiectasis, uncomplicated (principal); G47.33 Obstructive sleep apnea (adult) (pediatric); K21.9 Gastro-esophageal reflux disease without esophagitis | CPT/HCPCS: 99212 ==

== ENCOUNTER → 2021-08-02 11:35 | Outpatient (REF) | payer OTHER, SELFPAY ==
--- NOTE | 2021-08-02 11:42 | HM_ITS ---
Total monitoring time 6 days and 23 hours. Underlying rhythm is sinus. Minimum heart rate 71/Min. Maximum 130/Min. Average 91/Min. About 21% the time, rate greater than 100/Min. No atrial fibrillation or flutter or AV blocks or pauses. Rare supraventricular ectopy with a burden less than 0.01%. Rare ventricular ectopy with a burden of 0.17%. No patient events. MTDD
== END ==
LOC: HO.CARD 11:35
PROVIDERS: Visit Provider Internal Medicine
DX: J44.9 Chronic obstructive pulmonary disease, unspecified (principal)
CPT/HCPCS: 93242

== ENCOUNTER 2021-08-16 09:40 | Outpatient (REF) | payer OTHER, SELFPAY ==
[2021-08-16 09:53] LABS: MANUAL DIFF FLAG NO
[2021-08-16 10:25] LABS: Basophils Absolute Auto 0.1 X10*3/uL (0.0-0.2); Basophils Percent Auto 1.3 % (0-2); Eosinophils Absolute Auto 0.3 X10*3/uL (0.0-0.4); Eosinophils Percent Auto 4.2 % (0-4); Hematocrit 40.9 % (37.0-47.0); Hemoglobin 13.6 g/dl (12.0-16.0); Imm Gran Abs Auto 0.02 X10*3/uL (0.00-0.03); Imm Gran Pct Auto 0.3 % (0.0-0.4); Lymphocytes Absolute Auto 0.9 X10*3/uL (1.2-4.9); Lymphocytes Percent Auto 13.3 % (20-40); Mean Corpuscular HGB Conc 33.3 g/dl (31.0-35.0); Mean Corpuscular Hemoglobin 27.8 pg (27.0-33.0); Mean Corpuscular Volume 83.5 fL (80.0-98.0); Mean Platelet Volume 8.9 fL (9.4-12.3); Monocytes Absolute Auto 0.8 X10*3/uL (0.1-1.2); Monocytes Percent Auto 11.7 % (2-11); Neutrophils Absolute Auto 4.9 x10*3/uL (2.0-8.3); Neutrophils Percent Auto 69.2 % (45-73); Platelet Count 433 X10*3/uL (160-400); Red Cell Distribution Width 12.9 % (11.0-16.0); White Blood Count 7.1 X10*3/uL (4.8-10.8)
[2021-08-16 11:06] LABS: Appearance Urine CLEAR; Color Urine YELLOW; Glucose Urine UA NEG (NEG); Leukocyte Esterase Urine 1+ (NEG); Nitrite Urine NEG (NEG); Specific Gravity - Urine <= 1.005 (1.005-1.025); UACC Culture Trigger YES; Urine Blood NEG (NEG); Urine Ketones NEG (NEG); Urine Protein NEG (NEG-TRACE)
[2021-08-16 11:10] LABS: Alanine Aminotransferase 14 U/L (0-31); Albumin Level 4.2 g/dL (3.5-5.0); Alkaline Phosphatase 108 U/L (39-117); Anion Gap 11 (12-20); Aspartate Amino Transferase 20 U/L (5-31); Bilirubin Total 0.7 mg/dL (0.0-1.0); Blood Urea Nitrogen 6 mg/dL (9-16); C Reactive Protein 6.39 mg/dL (< or = 0.50); Calcium 9.8 mg/dL (8.4-10.2); Carbon Dioxide 37 mmol/L (22-29); Chloride 92 mmol/L (96-108); Cholesterol 162 mg/dL; Estimated Glomerular Filt Rate > 60; Glucose Fasting 96 mg/dL (60-99); HDL Cholesterol 49 mg/dL; LDL Cholesterol Calculated 94 mg/dl; Potassium 4.3 mmol/L (3.3-5.1); Sodium 136 mmol/L (135-145); Total Protein 7.5 g/dL (6.5-8.0); Triglycerides 96 mg/dL
[2021-08-16 11:16] LABS: RBC Urine 0 /HPF (0); Squamous Epithelial Cell Urine TRACE /LPF
[2021-08-16 11:31] LABS: TSH reflex Free T4 3.69 uIU/mL (0.32-4.0)
[2021-08-16 11:40] LABS: Folate 5.5 ng/mL (> or = 4.0); Vitamin B12 498 pg/mL (200-900)
== END 2021-08-16 09:41 | disposition home or self-care (01) ==
LOC: HO.LAB 09:40
PROVIDERS: PCP Internal Medicine; Visit Provider Internal Medicine
DX: E78.00 Pure hypercholesterolemia, unspecified (principal); E55.9 Vitamin D deficiency, unspecified; I10 Essential (primary) hypertension; E53.8 Deficiency of other specified B group vitamins; R79.82 Elevated C-reactive protein (CRP); R00.2 Palpitations; R42 Dizziness and giddiness
CPT/HCPCS: 36415; 80053; 80061; 81001; 81003; 82306; 82607; 82746; 84443; 85025; 86140; 87086; 93005; 99202

== ENCOUNTER 2021-10-14 10:35 | Outpatient (REF) | payer OTHER, SELFPAY ==
[2021-10-14 12:22] LABS: COVID-19 Test Negative (Negative)
== END 2021-10-14 10:36 | disposition home or self-care (01) ==
LOC: HO.LAB 10:35
PROVIDERS: Visit Provider Internal Medicine
DX: Z20.822 Contact with and (suspected) exposure to COVID-19 (principal)
CPT/HCPCS: 87635; C9803

== ENCOUNTER → 2021-10-21 09:35 | Outpatient (BNVA) | payer OTHER, SELFPAY | PROVIDERS: PCP Internal Medicine | DX: C64.2 Malignant neoplasm of left kidney, except renal pelvis (principal) | CPT/HCPCS: Q3014 ==

== ENCOUNTER → 2021-10-27 14:08 | Outpatient (REF) | payer OTHER, SELFPAY ==
--- NOTE | 2021-10-27 14:13 | HM_ITS ---
Patient is a 66-year-old female. REQUESTING PROVIDER: Debi Sánchez NP. REASON FOR TEST: Palpitation. FINDINGS: Patient was monitored from 10/27/2021 to 11/26/2021 for a total period of 30 days. Basic baseline rhythm was normal sinus rhythm with heart rate varying from 81 beats per minute to 96 beats per minute. There were no arrhythmias noted. There were a total of 6 reported episodes, 2 of them complaining of shortness of breath. All of this correlated with sinus rhythm. No arrhythmias noted. CONCLUSION: Event monitor is remarkable: 1. Baseline normal sinus rhythm. 2. No arrhythmias noted. 3. Patient reported 2 symptoms correlated with sinus rhythm. Levi Elmore MD NRS/MODL / [id number]
--- NOTE | 2021-10-27 14:13 | CA_ITS ---
Transthoracic Echocardiogram Patient (Last, First, Middle): Elina Stewart A Gender: Female Date of : 1955 Age: 66 Procedure Date: 10/27/2021 Procedure Type: Transthoracic Echocardiogram Location: OP Height: 160.02 cm Weight: 53.98 kg BSA: 1.55 m2 Heart Rate: bpm BP: 116 / 65 mmHg Bottom Sprayer: Referring MD: Lincoln Griffiths MD Symptoms: R00.2 - Palpitations Study Quality: Fair ECG Rhythm: Sinus Conclusions: - Normal left ventricular size and systolic function. - E/E prime ratio is between 8 and 15 consistent with indeterminate filling pressures. - Normal right ventricular cavity size and systolic function. - There is no evidence of pericardial effusion. Findings Left Ventricle Normal left ventricular size and systolic function. There is mildly increased left ventricular wall thickness. The visually estimated ejection fraction is between 55-60%. There is no evidence of regional wall motion abnormalities. Abnormal diastolic function is noted. Spectral Doppler is indicative of an impaired relaxation filling pattern. E/E prime ratio is between 8 and 15 consistent with indeterminate filling pressures. Right Ventricle Normal right ventricular cavity size and systolic function. Atria Both atria are normal in size. Aortic Valve There is a normal trileaflet aortic valve. There is no aortic valve stenosis. There is no aortic valve regurgitation. Mitral Valve Normal mitral valve structure and function. There is no mitral valve regurgitation. There is no mitral valve stenosis. Pulmonic Valve The pulmonic valve is likely normal. Tricuspid Valve Normal tricuspid valve structure and function. There is trace tricuspid valve regurgitation. Tricuspid regurgitation envelope is inadequate for calculation of right ventricular systolic pressure. Normal right atrial pressure. Great Vessels All visible segments of the aorta are normal in size. The visualized portions of the pulmonary artery and branches are normal. Venous The inferior vena cava is normal in size and collapses greater than 50% with inspiration. Pericardium/Pleural There is no evidence of pericardial effusion. Prior Study Comparison No prior study available for comparison. Measurements 2D Linear Measurements IVSd: 1.17 0.6-0.9/0.6-1.0 cm LVIDd: 4.06 3.9-5.3/4.2-5.9 cm LVIDd Index: 2.62 2.4-3.2/2.2-3.1 cm/m2 LVIDs: 2.73 2.0-3.6 cm LVPWd: 1.10 0.7-1.1 cm Ao Root: 2.80 2.1-3.5 cm LA Diam: 3.00 2.7-3.8/3.0-4.0 cm LAIDs Index: 1.94 1.5-2.3 cm/m2 LV Mass: 194.18 67-162/88-224 g LV Mass Index: 125.28 43-95/49-115 g/m2 LVOT Diam: 2.00 3.0+(-)1.3 cm 2D Systolic Function EF 4C: 56.60 >55% EF 2C: 52.20 >55% EF BiP: 53.30 >55% Mitral Valve MV Pk E: 0.70 MV PK A: 0.91 MV Decel Time: 141.00 E/A: 0.80 E'Lateral: 5.00 E'Medial: 6.42 E/E' Med: 11.00 E/E' Lat: 14.10 PHT: 41.00 MVA PHT: 5.37 Decel [place]: 4.99 Aortic Valve AoV Pk Jhon: 1.12 AoV Mn Jhon: 0.80 AoV VTI: 0.27 AoV Pk Grad: 5.00 Aov Mn Grad: 3.00 ASHANTI Cont.VTI: 2.09 LVOT LVOT Pk Jhon: 0.78 LVOT Mn Jhon: 0.52 LVOT VTI: 0.18 LVOT Pk Grad: 2.00 LVOT Mn Grad: 1.00 LVOT Diam: 2.00 LVOT Area: 3.14 Diastolic Function MV Pk E: 0.70 MV Pk A: 0.91 E/A: 0.80 E'Medial: 6.42 E/E' Med: 11.00 E' Laterial: 5.00 E/E' Lat: 14.10 Tricuspid Valve TR Pk Jhon: 2.04 TR Pk Grad: 17.00 Great Vessels Aorta Ao Root-2D: 2.80 2.0-3.7 cm Ao Asc: 3.00 2.1-3.4 cm Pulmonary Valve PV Pk Jhon: 0.81 Peak PV Grad: 3.00 Updated in Other Vendor System with Status of Final Lincoln Griffiths MD electronically signed on 10/27/2021 8:47:58 PM with status of Final
== END ==
LOC: HO.CARD 14:08
PROVIDERS: Visit Provider Nurse Practitioner Family
DX: R00.2 Palpitations (principal); R42 Dizziness and giddiness
CPT/HCPCS: 93270; 93306

== ENCOUNTER 2021-12-16 10:54 | Outpatient (REF) | payer OTHER, SELFPAY ==
--- NOTE | ~2021-12-16 | XR_ITS ---
EXAMINATION: XR LUMBOSACRAL SPINE CLINICAL INFORMATION: Low back pain COMPARISON: Previous x-ray September 2011 TECHNIQUE: Three views of the lumbosacral spine. FINDINGS: There is curvature of the lower lumbar spine to the left. Bone alignment is otherwise normal. No fracture or dislocation is seen. There is multilevel degenerative disc disease, greatest at L1-L2, L2-L3 and L3-L4. There is lower lumbar spine facet arthritis. There are surgical clips adjacent to the L1 transverse process. XR/XR lumbar spine 2-3V IMPRESSION: Mild scoliosis. Multilevel degenerative changes.
--- NOTE | ~2021-12-16 | XR_ITS ---
EXAMINATION: XR HIP, RIGHT CLINICAL INFORMATION: Radiculopathy COMPARISON: None TECHNIQUE: Two views of the right hip. FINDINGS: Bone alignment is normal. No fracture or dislocation is seen. There are small acetabular osteophytes. The joint spaces otherwise normal. There is a rectangular faint radiodensity measuring 6.2 x 1.2 cm projecting over the soft tissues of the upper medial thigh. This may represent something on the patient's skin or clothing. Clinical correlation recommended. XR/XR hip RT min 2V IMPRESSION: Mild degenerative changes 6.2 x 1.2 cm rectangular radiopaque density projecting over the soft tissues of the upper medial thigh, question representing something on the patient's skin or clothing. Clinical correlation recommended.
--- NOTE | ~2021-12-16 | XR_ITS ---
EXAMINATION: XR SACROILIAC JOINTS CLINICAL INFORMATION: Radiculopathy COMPARISON: None TECHNIQUE: 4 views of the sacroiliac joints FINDINGS: Bones and soft tissues are normal. No fracture. Alignment is anatomic. Sacroiliac joint spaces are well-maintained without erosions or surrounding sclerosis. XR/XR sacroiliac joint min 3V IMPRESSION: Normal sacroiliac joints.
[2021-12-16 12:03] LABS: Alanine Aminotransferase 14 U/L (0-31); Albumin Level 4.1 g/dL (3.5-5.0); Alkaline Phosphatase 97 U/L (39-117); Anion Gap 10 (12-20); Aspartate Amino Transferase 16 U/L (5-31); Bilirubin Total 0.4 mg/dL (0.0-1.0); Blood Urea Nitrogen 7 mg/dL (9-16); Carbon Dioxide 37 mmol/L (22-29); Chloride 93 mmol/L (96-108); Cholesterol 162 mg/dL; Estimated Glomerular Filt Rate > 60; Glucose Fasting 91 mg/dL (60-99); HDL Cholesterol 52 mg/dL; LDL Cholesterol Calculated 91 mg/dl; Potassium 4.2 mmol/L (3.3-5.1); Sodium 136 mmol/L (135-145); Total Protein 7.4 g/dL (6.5-8.0); Triglycerides 96 mg/dL
[2021-12-16 12:26] LABS: Vitamin D 25-OH Total 44.5 ng/mL (>30)
[2021-12-16 12:45] LABS: Appearance Urine HAZY; Color Urine YELLOW; Glucose Urine UA NEG (NEG); Leukocyte Esterase Urine 3+ (NEG); Nitrite Urine NEG (NEG); UACC Culture Trigger YES; Urine Blood NEG (NEG); Urine Ketones NEG (NEG); Urine Protein NEG (NEG-TRACE)
[2021-12-16 13:05] LABS: Bacteria Urine 1+ /LPF; RBC Urine 0-2 /HPF (0); Squamous Epithelial Cell Urine 1+ /LPF
== END 2021-12-16 10:55 | disposition home or self-care (01) ==
LOC: HO.LAB 10:54
PROVIDERS: PCP Internal Medicine; Visit Provider Internal Medicine
DX: I10 Essential (primary) hypertension (principal); M54.50 Low back pain, unspecified; M54.16 Radiculopathy, lumbar region; E55.9 Vitamin D deficiency, unspecified; E78.00 Pure hypercholesterolemia, unspecified
CPT/HCPCS: 36415; 72100; 72202; 73502; 80053; 80061; 81001; 82306; 87086; 87147

== ENCOUNTER 2022-03-03 14:52 | Outpatient (REF) | payer OTHER, SELFPAY ==
--- NOTE | ~2022-03-03 | XR_ITS ---
EXAMINATION: XR CHEST CLINICAL INFORMATION: Cough COMPARISON: 03/16/2021 TECHNIQUE: 2 views of the chest were obtained. FINDINGS: The lungs are well expanded. Patchy multifocal airspace opacities are seen throughout both lungs. Relative sparing at the apices. No pleural effusion or pneumothorax. The cardiac mediastinal silhouette is within normal limits. No acute osseous abnormality. Mild degenerative change in the spine. XR/XR chest 2V IMPRESSION: Patchy multifocal airspace opacities suspicious for infectious or inflammatory process.
== END 2022-03-03 14:53 | disposition home or self-care (01) ==
LOC: HO.XRAY 14:52
PROVIDERS: PCP Internal Medicine; Visit Provider Internal Medicine Pulmonary Disease
DX: R05.9 Cough, unspecified (principal); G47.33 Obstructive sleep apnea (adult) (pediatric); J44.9 Chronic obstructive pulmonary disease, unspecified
CPT/HCPCS: 71046; 99212

== ENCOUNTER 2022-04-08 14:01 | Outpatient (REF) | payer OTHER, SELFPAY ==
--- NOTE | ~2022-04-08 | US_ITS ---
EXAMINATION: US RETROPERITONEAL LIMITED (RENAL ONLY) CLINICAL INFORMATION: Malignant neoplasm of the left kidney except renal pelvis. COMPARISON: Renal ultrasound 07/05/2021 and 12/04/2019. CT abdomen and pelvis 12/04/2020. TECHNIQUE: Real-time imaging of the solitary right kidney. FINDINGS: RIGHT KIDNEY: 11.4 x 4.8 x 5.9 cm (SAG x AP x TRV). The kidney is normal in size, contour, and echogenicity. Renal cortical thickness is normal. No calculi or focal parenchymal lesions. No hydronephrosis. LEFT KIDNEY: Surgically absent. US/US renal BI IMPRESSION: Left kidney has been surgically removed. The right kidney is unremarkable.
== END 2022-04-08 14:02 | disposition home or self-care (01) ==
LOC: HO.US 14:01
DX: C64.2 Malignant neoplasm of left kidney, except renal pelvis (principal)
CPT/HCPCS: 76775

== ENCOUNTER → 2022-12-28 14:33 | Outpatient (BNVA) | payer OTHER, SELFPAY | PROVIDERS: PCP Internal Medicine; Visit Provider Internal Medicine Pulmonary Disease | DX: J47.9 Bronchiectasis, uncomplicated (principal); J44.9 Chronic obstructive pulmonary disease, unspecified; R91.8 Other nonspecific abnormal finding of lung field | CPT/HCPCS: 99212 ==

== ENCOUNTER 2023-01-27 13:30 | Outpatient (REF) | payer OTHER, SELFPAY ==
--- NOTE | ~2023-01-27 | CT_ITS ---
EXAMINATION: CT CHEST WITHOUT CONTRAST CLINICAL INFORMATION: Bronchiectasis COMPARISON: Previous chest CT scans, most recent November 2020 TECHNIQUE: Multidetector volumetric CT imaging of the chest was done. Axial MIP volume rendering provided. Sagittal and coronal reformatted images were obtained. This CT examination was performed using dose optimization techniques as appropriate, variously including the following: *Automated exposure control *Adjustment of mA and/or kV according to patient size (this includes techniques or standardized protocols for targeted exams where dose is matched to indication/reason for exam; i.e. extremities or head) *Use of iterative reconstruction technique DLP: 129 mGy-cm FINDINGS: LUNGS: There are scattered areas of bronchiectasis. This does not appear appreciably changed from previous exam. There is significant interval improvement in the patchy areas of airspace disease and increased peribronchial attenuation and nodules and nodular opacities seen in the bilateral upper lobes, right middle lobe and right lower lobe compared to November 2020 exam. There is a 5 mm right upper lobe nodule axial image 103 series 6. There is a 6 mm left lower lobe nodule axial image 138 series 6. There is a 4 mm right lower lobe nodule axial image 140 series 6. There is a 6 mm left lower lobe nodule adjacent to the diaphragmatic pleural surface axial image 150 series 6. These are all new compared to previous chest CT from 2020. No endobronchial or endotracheal lesion. No evidence MEDIASTINUM: Stable mediastinal lymphadenopathy. No enlarged lymph nodes. Normal heart size. Moderate to severe coronary artery calcification. Trace pericardial fluid or thickening. Normal caliber thoracic aorta. Normal-sized pulmonary arteries. CORONARY ARTERY CALCIFICATION: Moderate to severe PLEURA: There is no pleural effusion. No pleural mass or thickening. AXILLA: No lymphadenopathy. UPPER ABDOMEN: The left kidney has been removed. There is a new peritoneal nodule under the left hemidiaphragm measuring 1.4 cm axial image 50 series 7. There is a nodule adjacent to the spleen axial image 56 series 7 that is stable and may represent a splenule. Spleen is not completely imaged but appears upper normal in size. OSSEOUS STRUCTURES: Degenerative changes of the spine and scoliosis. CT/CT chest wo IV con IMPRESSION: Stable appearance of bronchiectasis. Interval improvement in patchy areas of consolidation and groundglass glass attenuation and increased interstitial markings in the right lung and left upper lobe compared to most recent exam November 2020. Several new pulmonary nodules, largest measuring [address] follow-up as per protocol. Alternatively, According to the UPDATED 2017 Fleischner Society recommendations, the advised follow-up imaging 6 to 8 mm solid nodule for both low and high risk patients: 3-[address] follow-up and then the 18-[address] follow-up if stable finding. New peritoneal nodule under the left hemidiaphragm. Follow-up abdominal pelvic CT scan recommended. Findings will be communicated by the [facility] work flow community marketing manager. Fleischner guidelines were followed.
== END 2023-01-27 13:31 | disposition home or self-care (01) ==
LOC: HO.CT 13:30
PROVIDERS: PCP Internal Medicine; Visit Provider Internal Medicine Pulmonary Disease
DX: J47.9 Bronchiectasis, uncomplicated (principal)
CPT/HCPCS: 71250

== ENCOUNTER → 2023-02-14 11:11 | Outpatient (BNVA) | payer OTHER, SELFPAY | PROVIDERS: PCP Internal Medicine; Visit Provider Internal Medicine Pulmonary Disease | DX: J44.9 Chronic obstructive pulmonary disease, unspecified (principal); K21.9 Gastro-esophageal reflux disease without esophagitis; R91.8 Other nonspecific abnormal finding of lung field | CPT/HCPCS: Q3014 ==

== ENCOUNTER 2023-03-10 18:28 | Emergency (ER) | payer OTHER, SELFPAY ==
--- NOTE | ~2023-03-10 | XR_ITS ---
EXAMINATION: XR CHEST CLINICAL INFORMATION: Confusion COMPARISON: 03/03/2022 TECHNIQUE: Frontal view of the chest was obtained. FINDINGS: The lungs are well expanded. There is no focal consolidation, edema, or effusion. No pneumothorax. The cardiomediastinal silhouette is within normal limits. No acute osseous abnormality. Likely right rotator cuff calcific tendinosis. XR/XR chest 1V IMPRESSION: No acute pulmonary disease.
--- NOTE | ~2023-03-10 | CT_ITS ---
EXAMINATION: CT HEAD WITHOUT CONTRAST CLINICAL INFORMATION: Confusion COMPARISON: None. TECHNIQUE: Contiguous axial imaging was performed from the skull base to vertex without intravenous contrast. This CT examination was performed using dose optimization techniques as appropriate, variously including the following: * Automated exposure control * Adjustment of mA and/or kV according to patient size (this includes techniques or standardized protocols for targeted exams where dose is matched to indication/reason for exam; i.e. extremities or head) Use of iterative reconstruction technique DLP: 606 mGy-cm. FINDINGS: There is no evidence of acute intracranial hemorrhage or territorial infarction. No abnormal mass effect or midline shift is seen. Mao to white matter differentiation is well preserved. No extra-axial fluid collections are identified. No hydrocephalus. Proportional prominence of the ventricles and sulcal spaces is consistent with mild volume loss. Patchy periventricular and deep white matter hypoattenuation is consistent with mild small vessel ischemic changes. The osseous structures and soft tissues are normal. The mastoid air cells and visualized portions of the paranasal sinuses are well aerated. CT/CT head/brain wo IV con IMPRESSION: No acute intracranial pathology. Mild volume loss with small vessel ischemic change.
--- NOTE | 2023-03-10 19:11 | ED_ITS ---
HPI - General Adult General Chief complaint: Altered Mental Status Stated complaint: confused, uti? Time Seen by Provider: 03/10/23 21:32 Source: patient Mode of arrival: ambulatory History of Present Illness HPI narrative: This is a 67-year-old female who suffers from depression and anxiety and comes in with her sister for 10 days of increasing fatigue, increased sleeping, decreased oral intake, dizziness and some noted increased confusion. As per the sister she has noted that patient has not performed personal hygiene for the past 10 days and reports subjective fevers. Patient denies any suicidal or homicidal ideation and states that she has continued to take her medications as prescribed. Related Data Home Medications Medication Instructions Recorded Confirmed cyclosporine 0.05 % eye drops in a 1 drp ophthalmic (eye) BID 07/22/20 11/07/22 dropperette polyethylene glycol 3350 17 17 g PO DAILY 07/22/20 11/07/22 gram/dose oral powder Previous Rx's Medication Instructions Recorded miscellaneous medical supply 1 ea miscellaneous .COMPLEX #1 ea 11/09/20 ipratropium 0.5 mg-albuterol 3 mg 3 ml inhalation Q6H PRN shortness 03/03/22 (2.5 mg base)/3 mL nebulization of breath or wheezing 30 days #180 soln mL cholecalciferol (vitamin D3) 50 50 mcg PO DAILY 90 days #90 caps 06/23/22 mcg (2,000 unit) capsule mometasone 0.1 % topical cream See Rx Instructions topical BID 07/15/22 PRN rash 30 days #45 grams nystatin 100,000 unit/mL oral 10 ml buccal TID 10 days #300 mL 08/31/22 suspension gabapentin 400 mg capsule 400 mg PO TID 90 days #270 caps 09/09/22 atorvastatin 10 mg tablet 10 mg PO DAILY #90 tabs 10/07/22 betamethasone dipropionate 0.05 % 1 appl topical BID PRN skin 10/07/22 topical cream irritation #45 grams sennosides 8.6 mg tablet (senna) 8.6 mg PO BEDTIME PRN for 11/01/22 constipation #90 tabs oxycodone-acetaminophen 5 mg-325 1 tab PO Q8H PRN low back pain 7 11/11/22 mg tablet days #21 tabs dexlansoprazole 60 mg 60 mg PO DAILY for acid reflux 30 12/27/22 capsule,biphase delayed release days #90 caps (Dexilant) albuterol sulfate 90 mcg/actuation 2 puff inhalation QID PRN 12/28/22 aerosol inhaler shortness of breath or wheezing #8.5 grams fluticasone propionate 220 2 puff PO BID #12 grams 12/28/22 mcg/actuation HFA aerosol inhaler (Flovent HFA) umeclidinium 62.5 mcg/actuation 1 inh inhalation DAILY #60 caps 12/28/22 blister powder for inhalation (Incruse Ellipta) clonazepam 0.5 mg tablet 0.5 mg PO TID PRN anxiety 30 days 01/27/23 #90 tabs nifedipine 30 mg tablet,extended 30 mg PO DAILY #90 tabs 01/27/23 release famotidine 40 mg tablet 40 mg PO DAILY 30 days #30 tabs 02/14/23 amitriptyline 75 mg tablet 75 mg PO DAILY #90 tabs 03/01/23 bupropion HCl 150 mg 24 hr tablet, 150 mg PO QAM 90 days #90 tabs 03/01/23 extended release hydrochlorothiazide 25 mg tablet 25 mg PO DAILY #90 tabs 03/01/23 cefdinir 300 mg capsule 300 mg PO BID 5 days #10 caps 03/11/23 Allergies Allergy/AdvReac Type Severity Reaction Status Date / Time Sulfa (Sulfonamide Allergy Severe ANAPHYLAXIS Verified 03/10/23 19:22 Antibiotics) Penicillins Allergy Mild RASH Verified 03/10/23 19:22 aspirin [ASA] Allergy Unknown UNKNOWN, Verified 03/10/23 19:22 stomach upset codeine [Codeine] Allergy Unknown NAUSEA & Verified 03/10/23 19:22 VOMITING diphenhydramine [Advil PM] Allergy Unknown Unknown Verified 03/10/23 19:22 ibuprofen [From ADVIL] Allergy Unknown UNKNOWN Verified 03/10/23 19:22 Review of Systems Review of Systems: Pertinent positives and negatives as stated in [facility] Past Medical History Source: nursing notes reviewed Medical History Anxiety Benign essential hypertension Chronic allergic bronchitis Constipation Depression Elevated C-reactive protein (CRP) GERD (gastroesophageal reflux disease) Lumbar degenerative disc disease Malignant neoplasm of left kidney Obstructive sleep apnea Oral thrush Palpitations Primary osteoarthritis of knees, bilateral Pure hypercholesterolemia Renal cell carcinoma of left kidney Right foot pain Status post fall Vitamin D deficiency Surgical History History of nephrectomy Family History Family History Father Hypertension CVD (cardiovascular disease) Cancer Mother Hypertension Substance abuse Other Mental health problem Social History Social History Housing: House Alcohol intake: former Patient Tobacco Use Status: Former Tobacco user Quit Date: 2011 Smoked: 35 +/- Smoked in Last 30 Days: No e-Cigarette/Vaping Use: Currently Using Second Hand Smoke Exposure: Yes Use of substances other than those prescribed or required for medical reasons: No Advance Directives: No Advance Directives Information Provided: No service: No Current occupational status: disabled Cognitive needs: No Hearing needs: No Vision needs: No Physical Exam ED Vital Signs: Vital Signs - 24 hr 03/10/23 19:22 03/10/23 22:08 Temperature 96.8 F 98.1 F Pulse Rate 95 80 Respiratory Rate 16 11 L Blood Pressure 144/84 H 142/79 H Pulse Oximetry 92 94 Oxygen Delivery Method Room Air Room Air BMI result Body Mass Index 20.7 VITAL SIGNS: Reviewed. GENERAL: Well developed, well nourished, in no acute distress. HEAD: Normocephalic/atraumatic EYES: PERRLA, EOMI EARS: Ext canals without abnormality NOSE: Nares patent bilateral OROPHARYNX: no oral lesions noted, posterior pharynx clear NECK: Supple, no adenopathy LUNGS: Normal breath sounds. No adventitious sounds or accessory muscle use. SpO2<94> CARDIOVASCULAR: Regular rate and rhythm without noted murmurs, no JVD or lower extremity edema. ABDOMEN: Soft, non-tender, non-distended with bowel sounds. MUSCULOSKELETAL: No tenderness, deformities, or effusions noted on gross inspection. EXTREMITIES: No cyanosis, clubbing or edema. SKIN: Inspection of the skin reveals no rashes NEUROLOGIC: Alert and oriented x 3. Strength and sensation to light touch were grossly intact x 4. Course Course Course Narrative: This is an RME: Additional HPI, ROS, PE not included below will be deferred to primary provider. This is a [id number]-female, with a history of GERD, COPD, LANEY, renal cell carcinoma of left kidney, presenting to the emergency department with complaints of increased fatigue, decreased PO intake, dizziness, nausea. Reports confusion started 3 days ago. On exam, pt is alert and oriented to person, place, unsure of month, knows year. Pt is a poor historian, presenting with restaurant attendant. O2 saturation 92% on room air. Hx or recurrent pneumonia. Plan: Labs, UA, CT head ordered. Informed charge nurse, patient will be brought back to room 17 for further work up. Medical Decision Making Medical Decision Making MDM Narrative: 67-year-old female with history and clinical presentation mildly suggestive of increased depression and will evaluate for evidence of infection give an the mild confusion and fevers that patient and sister are reporting. Patient is nonfocal. My interpretation is that patient has mild dehydration with a UTI and suspect that the slight elevation in H/H is secondary to underlying COPD for which patient is asymptomatic. She will receive initial antibiotics here, strongly encouraged to increase oral hydration, and discharged home with instructions follow-up with primary care provider on Monday morning. The sister was given strict return precautions. Differential Diagnosis Please see the discussion above Lab Data Please see the discussion above 03/10/23 19:51 03/10/23 19:51 Labs: Lab Results 03/10/23 03/10/23 03/10/23 Range/Units 19:51 19:51 23:36 WBC 5.8 (4.8-10.8) X10*3/uL RBC 5.96 H D (4.20-5.50) X10*6/uL Hgb 16.5 H D (12.0-16.0) g/dl Hct 50.1 H D (37.0-47.0) % MCV 84.1 (80.0-98.0) fL MCH 27.7 (27.0-33.0) pg MCHC 32.9 (31.0-35.0) g/dl RDW 13.0 (11.0-16.0) % Plt Count 337 (160-400) X10*3/uL MPV 9.9 (9.4-12.3) fL Immature Gran % (Auto) 0.5 H (0.0-0.4) % Neut % (Auto) 66.2 (45-73) % Lymph % (Auto) 17.6 L (20-40) % Maury % (Auto) 11.4 H (2-11) % Eos % (Auto) 3.6 (0-4) % Baso % (Auto) 0.7 (0-2) % Lymph # (Auto) 1.0 L (1.2-4.9) X10*3/uL Maury # (Auto) 0.7 (0.1-1.2) X10*3/uL Eos # (Auto) 0.2 (0.0-0.4) X10*3/uL Baso # (Auto) 0.0 (0.0-0.2) X10*3/uL Abs Immat Gran (auto) 0.03 (0.00-0.03) X10*3/uL Absolute Neuts (auto) 3.8 (2.0-8.3) x10*3/uL Absolute Nucleated RBC 0.000 (0.0-0.012) X10*3/uL Nucleated RBC % (auto) 0.0 (0.0-0.2) /100WBC Sodium 138 (135-145) mmol/L Potassium 3.6 (3.3-5.1) mmol/L Chloride 93 L (96-108) mmol/L Carbon Dioxide 33 H (22-29) mmol/L Anion Gap 16 (12-20) BUN 13 (9-16) mg/dL Creatinine 0.73 (0.5-1.4) mg/dL Estim Creat Clear Calc 62.6 Estimated GFR > 60 Random Glucose 122 H (60-115) mg/dL Calcium 10.0 (8.4-10.2) mg/dL Magnesium 2.2 (1.6-2.6) mg/dL Total Bilirubin 0.7 (0.0-1.0) mg/dL Direct Bilirubin 0.2 (0.0-0.5) mg/dL AST 18 (5-31) U/L ALT 10 (0-31) U/L Alkaline Phosphatase 93 (39-117) U/L Total Protein 7.5 (6.5-8.0) g/dL Albumin 4.1 (3.5-5.0) g/dL Urine Color Dark Yellow Urine Appearance Cloudy Urine pH 5.5 (5.0-9.0) Ur Specific [place] >= 1.030 H (1.005-1.025) Urine Protein 300 (3+) H (Neg-Trace) mg/dL Urine Glucose (UA) Negative (Negative) mg/dL Urine Ketones Trace (Negative) mg/dL Urine Blood Trace H (Negative) Urine Nitrite Negative (Negative) Ur Leukocyte Esterase Large (3+) H (Negative) Independent Interpretation I performed an independent interpretation of an: EKG Interpretation: Normal sinus rhythm, HR-93, no STEMI, LA/QRS/QTC is within normal limits. Radiology Impression Radiologist Impression: My interpretation is in agreement with radiology's impression. External Record Review External record reviewed: Prior outpatient labs Discharge Plan Discharge Clinical Impression: Depression, Dehydration, Acute UTI Patient Disposition: Home, Self-Care Instructions: Dehydration (ED), Urinary Tract Infection in Women (DC), Depression (ED) Additional Instructions: 1. Resume all home medications as prescribed. 2. Increase the amount of water intake, complete the entire course of antibiotics as ordered for your urinary tract infection. 3. If your depression symptoms do not improve over the next 24 hours please return to the emergency room. 4. Otherwise, please follow-up with your primary care provider on Monday morning for re-evaluation further outpatient management. Return to the ER for any worsening symptoms. Prescriptions: New cefdinir 300 mg capsule 300 mg PO BID 5 Days Qty: 10 0RF No Action miscellaneous medical supply Misc 1 ea miscellaneous .COMPLEX Qty: 1 0RF Rx Instructions: 1 ea miscellaneous Nebulizer Machine DIRECTED cholecalciferol (vitamin D3) 50 mcg (2,000 unit) capsule 50 mcg PO DAILY 90 Days Qty: 90 3RF mometasone 0.1 % cream See Rx Instructions topical BID PRN (Reason: rash) 30 Days Qty: 45 0RF Rx Instructions: apply to affected areas topical 2 times a day PRN; gabapentin 400 mg capsule 400 mg PO TID 90 Days Qty: 270 1RF betamethasone dipropionate 0.05 % cream 1 appl topical BID PRN (Reason: skin irritation) Qty: 45 0RF atorvastatin 10 mg tablet 10 mg PO DAILY Qty: 90 2RF sennosides [senna] 8.6 mg tablet 8.6 mg PO BEDTIME PRN (Reason: for constipation) Qty: 90 1RF oxycodone-acetaminophen 5-325 mg tablet 1 tab PO Q8H PRN (Reason: low back pain) 7 Days Qty: 21 0RF dexlansoprazole [Dexilant] 60 mg capsule,biphase delayed releas 60 mg PO DAILY 30 Days Qty: 90 1RF nifedipine 30 mg tablet extended release 30 mg PO DAILY Qty: 90 3RF clonazepam 0.5 mg tablet 0.5 mg PO TID PRN (Reason: anxiety) 30 Days Qty: 90 0RF hydrochlorothiazide 25 mg tablet 25 mg PO DAILY Qty: 90 1RF bupropion HCl 150 mg tablet extended release 24 hr 150 mg PO QAM 90 Days Qty: 90 1RF amitriptyline 75 mg tablet 75 mg PO DAILY Qty: 90 1RF nystatin 100,000 unit/mL suspension 10 ml buccal TID 10 Days Qty: 300 0RF Rx Instructions: swish 1/2 of dose in each side of the mouth for up to 5 minutes, then spit out the medicine polyethylene glycol 3350 17 gram/dose powder 17 g PO DAILY Restasis 0.05 % dropperette 1 drp ophthalmic (eye) BID albuterol sulfate 90 mcg/actuation HFA aerosol inhaler 2 puff inhalation QID PRN (Reason: shortness of breath or wheezing) Qty: 8.5 6RF fluticasone propionate [Flovent HFA] 220 mcg/actuation HFA aerosol inhaler 2 puff PO BID Qty: 12 6RF Incruse Ellipta 62.5 mcg/actuation blister with device 1 inh inhalation DAILY Qty: 60 6RF ipratropium-albuterol 0.5 mg-3 mg(2.5 mg base)/3 mL solution for nebulization 3 ml inhalation Q6H PRN (Reason: shortness of breath or wheezing) 30 Days Qty: 180 6RF famotidine 40 mg tablet 40 mg PO DAILY 30 Days Qty: 30 6RF Referrals: Dominic Lin MD [Primary Care Provider] -
[2023-03-10 19:22] VITALS: BP 144/84; PULSE 95; RESP 16; TEMP 36; O2SAT 92; BMI 20.7
--- NOTE | 2023-03-10 19:37 | ECG_ITS ---
Test Reason : ams Blood Pressure : / mmHG Vent. Rate : 093 BPM Atrial Rate : 093 BPM P-R Int : 132 ms QRS Dur : 078 ms QT Int : 352 ms P-R-T Axes : 072 045 037 degrees QTc Int : 437 ms Normal sinus rhythm Possible Left atrial enlargement Borderline ECG When compared with ECG of 14-FEB-2020 14:41, T wave inversion now evident in Inferior leads Referred By: Padmini Hillman Electronically Signed By:Lincoln Griffiths
--- NOTE | 2023-03-10 20:00 | PC.NURSE ---
IV line access obtained 20g RAC
[2023-03-10 20:08] LABS: MANUAL DIFF FLAG NO
[2023-03-10 20:13] LABS: Basophils Percent Auto 0.7 % (0-2); Eosinophils Absolute Auto 0.2 X10*3/uL (0.0-0.4); Eosinophils Percent Auto 3.6 % (0-4); Hematocrit 50.1 % (37.0-47.0); Hemoglobin 16.5 g/dl (12.0-16.0); Imm Gran Abs Auto 0.03 X10*3/uL (0.00-0.03); Imm Gran Pct Auto 0.5 % (0.0-0.4); Lymphocytes Percent Auto 17.6 % (20-40); Mean Corpuscular HGB Conc 32.9 g/dl (31.0-35.0); Mean Corpuscular Hemoglobin 27.7 pg (27.0-33.0); Mean Corpuscular Volume 84.1 fL (80.0-98.0); Mean Platelet Volume 9.9 fL (9.4-12.3); Monocytes Absolute Auto 0.7 X10*3/uL (0.1-1.2); Monocytes Percent Auto 11.4 % (2-11); Neutrophils Absolute Auto 3.8 x10*3/uL (2.0-8.3); Neutrophils Percent Auto 66.2 % (45-73); Platelet Count 337 X10*3/uL (160-400); Red Blood Count 5.96 X10*6/uL (4.20-5.50); White Blood Count 5.8 X10*3/uL (4.8-10.8)
[2023-03-10 20:38] LABS: Alanine Aminotransferase 10 U/L (0-31); Albumin Level 4.1 g/dL (3.5-5.0); Alkaline Phosphatase 93 U/L (39-117); Anion Gap 16 (12-20); Aspartate Amino Transferase 18 U/L (5-31); Bilirubin Direct 0.2 mg/dL (0.0-0.5); Bilirubin Total 0.7 mg/dL (0.0-1.0); Blood Urea Nitrogen 13 mg/dL (9-16); Carbon Dioxide 33 mmol/L (22-29); Chloride 93 mmol/L (96-108); Creatinine Clr Calc Pharmacy 62.6; Estimated Glomerular Filt Rate > 60; Glucose Random 122 mg/dL (60-115); Magnesium 2.2 mg/dL (1.6-2.6); Potassium 3.6 mmol/L (3.3-5.1); Sodium 138 mmol/L (135-145); Total Protein 7.5 g/dL (6.5-8.0)
[2023-03-10 22:08] VITALS: BP 142/79; PULSE 80; RESP 11; TEMP 36.7; O2SAT 94
--- NOTE | 2023-03-10 22:16 | PC.NURSE ---
pt resting quietly, no apparent distress pt confused, denies pain, difficulty walking, increased weakness 8RR, aware pt not oriented to time or situation aox2 pt c/o weakness as of 10 days ago sister states pt seems to be confused as of 3 days ago
--- NOTE | 2023-03-10 22:29 | PC.NURSE ---
bedside commode placed w/ hat encouraged pt to use commode to collect urine sample sister remains at bedside
[2023-03-11 00:09] LABS: Appearance Urine Cloudy; Color Urine Dark Yellow; Glucose Urine UA Negative (Negative); Leukocyte Esterase Urine Large (3+) (Negative); Nitrite Urine Negative (Negative); PH 5.5 (5.0-9.0); UMIC TRIGGER UACC YES; Urine Blood Trace (Negative); Urine Ketones Trace mg/dL (Negative); Urine Protein 300 (3+) mg/dL (Neg-Trace)
[2023-03-11 00:12] LABS: Bacteria Urine 4+ (None Seen); Hyaline Casts Urine 0-2 /LPF (0-2); RBC Urine 0-2 /HPF (0-2); UACC Culture Trigger YES; WBC Urine >50 /HPF (0-5)
[2023-03-11 00:17] LABS: Specific Gravity - Urine >= 1.030 (1.005-1.025)
[2023-03-11 00:56] VITALS: PULSE 83; RESP 12; TEMP 36.6; O2SAT 95
--- NOTE | 2023-03-11 01:07 | PC.NURSE ---
administered 100 mg macrobid PO per MAR
[2023-03-11] MEDS: Nitrofurantoin Monohyd/M-Cryst 100 MG CAPSULE PO (01:08)
--- NOTE | 2023-03-11 01:09 | PC.NURSE ---
Discharge instructions given and explained to pt No apparent distress Ambulates safely/independently left with sister all of pt's questions answered aox3
== END 2023-03-11 01:01 | disposition home or self-care (01) ==
PROVIDERS: Physician Assistant Medical; Emergency Provider Student in an Organized Health Care Education/Training Program; PCP Internal Medicine
DX: R41.82 Altered mental status, unspecified (principal); R51.9 Headache, unspecified; F41.9 Anxiety disorder, unspecified; R94.31 Abnormal electrocardiogram [ECG] [EKG]; Z79.899 Other long term (current) drug therapy; Z87.891 Personal history of nicotine dependence
CPT/HCPCS: 36415; 70450; 71045; 80048; 80076; 81001; 81003; 83735; 85025; 87086; 93005; 99284; 99285

== ENCOUNTER 2023-03-13 11:54 | Emergency (ER) | payer OTHER, SELFPAY ==
--- NOTE | ~2023-03-13 | XR_ITS ---
EXAMINATION: XR CHEST CLINICAL INFORMATION: Shortness of breath COMPARISON: Chest radiographs 03/10/2023, 03/03/2022. TECHNIQUE: 2 views of the chest were obtained. FINDINGS: Mild hyperinflation similar to prior studies. No airspace consolidation, vascular congestion, pneumothorax, groundglass opacity, or effusion. The heart is normal in size. The hilar and mediastinal contours and bony structures are stable. XR/XR chest 2V IMPRESSION: Unremarkable examination.
[2023-03-13 11:58] VITALS: BP 120/79; PULSE 96; O2SAT 93
[2023-03-13 12:01] VITALS: BP 144/77; PULSE 97; RESP 16; TEMP 36.7; O2SAT 85; BMI 25.7
[2023-03-13 12:10] VITALS: PULSE 92; RESP 14; O2SAT 95
--- NOTE | 2023-03-13 12:15 | ECG_ITS ---
Test Reason : SOB Blood Pressure : / mmHG Vent. Rate : 090 BPM Atrial Rate : 090 BPM P-R Int : 140 ms QRS Dur : 072 ms QT Int : 348 ms P-R-T Axes : 069 046 067 degrees QTc Int : 425 ms Normal sinus rhythm Normal ECG When compared with ECG of 10-MAR-2023 19:43, Nonspecific T wave abnormality has replaced inverted T waves in Inferior leads Referred By: Anisha Verdin Electronically Signed By:CHANCE CARRINGTON MD
--- NOTE | 2023-03-13 12:38 | PC.NURSE ---
delay in EKG due to pt in XR.
[2023-03-13 12:40] VITALS: O2SAT 92
[2023-03-13 12:56] LABS: MANUAL DIFF FLAG NO
--- NOTE | 2023-03-13 12:56 | PC.NURSE ---
pt alert and oriented to person/place, increased confusion ~5 days, pt is unclear as to whether or not she's been taking abx for UTI. 20G IV placed right AC, labs drawn, pt unable to urinate at this time, aware of need for urine sample. pt O2 remains 88-93% on RA, hx COPD, per pt has home O2 but rarely uses it. pt pending ED provider.
[2023-03-13 12:57] LABS: Basophils Percent Auto 0.8 % (0-2); Eosinophils Absolute Auto 0.1 X10*3/uL (0.0-0.4); Eosinophils Percent Auto 2.3 % (0-4); Hematocrit 48.4 % (37.0-47.0); Hemoglobin 15.8 g/dl (12.0-16.0); Imm Gran Abs Auto 0.01 X10*3/uL (0.00-0.03); Imm Gran Pct Auto 0.2 % (0.0-0.4); Lymphocytes Absolute Auto 0.8 X10*3/uL (1.2-4.9); Lymphocytes Percent Auto 14.7 % (20-40); Mean Corpuscular HGB Conc 32.6 g/dl (31.0-35.0); Mean Corpuscular Hemoglobin 27.1 pg (27.0-33.0); Mean Corpuscular Volume 83.2 fL (80.0-98.0); Mean Platelet Volume 9.5 fL (9.4-12.3); Monocytes Absolute Auto 0.5 X10*3/uL (0.1-1.2); Neutrophils Absolute Auto 3.8 x10*3/uL (2.0-8.3); Platelet Count 365 X10*3/uL (160-400); Red Blood Count 5.82 X10*6/uL (4.20-5.50); Red Cell Distribution Width 12.8 % (11.0-16.0); White Blood Count 5.3 X10*3/uL (4.8-10.8)
[2023-03-13 13:07] LABS: Lactic Acid 1.1 mmol/L (0.5-2.0)
[2023-03-13 13:10] LABS: Alanine Aminotransferase 9 U/L (0-31); Alkaline Phosphatase 91 U/L (39-117); Anion Gap 13 (12-20); Aspartate Amino Transferase 13 U/L (5-31); Bilirubin Total 0.9 mg/dL (0.0-1.0); Blood Urea Nitrogen 9 mg/dL (9-16); C Reactive Protein < 0.10 mg/dL (< or = 0.50); Calcium 9.9 mg/dL (8.4-10.2); Carbon Dioxide 33 mmol/L (22-29); Chloride 96 mmol/L (96-108); Creatinine Clr Calc Pharmacy 74.9; Estimated Glomerular Filt Rate > 60; Glucose Random 113 mg/dL (60-115); Magnesium 2.1 mg/dL (1.6-2.6); Potassium 3.6 mmol/L (3.3-5.1); Sodium 138 mmol/L (135-145); Total Protein 7.3 g/dL (6.5-8.0)
[2023-03-13 13:15] LABS: COVID-19 Test Positive (Negative); IDNOW Serial# 08D9AD1C
[2023-03-13 13:22] LABS: Troponin-I High Sensitivity < 2.7 ng/L (<3.5-17.0)
--- NOTE | 2023-03-13 13:27 | ED.AMS ---
HPI - Altered Mental Status General Chief Complaint: Altered Mental Status Stated Complaint: AMS,UNABLE TO TELL TIME/EVENT PER EMS Time Seen by Provider: 03/13/23 12:36 Source: patient Mode of arrival: EMS Limitations: altered mental status History of Present Illness HPI narrative: 67-year-old female presents with mental status changes. Patient reports having baseline of confusion however, today her symptoms appear to be worse. She denies any fevers or chills. She denies any headache, nausea, vomiting. She denies any urinary frequency or urgency or dysuria. She describes symptoms as moderate in nature. There is no clear relieving or exacerbating features. She denies any pain or headache. Therefore, there is no radiation of her symptoms. Patient describes her discomfort as being pressure or pulling in nature. Patient reports having oxygen at home but she does not use it. Patient denies any cough, mucus production, dyspnea Related Data Home Medications Medication Instructions Recorded Confirmed cyclosporine 0.05 % eye drops in a 1 drp ophthalmic (eye) BID 07/22/20 11/07/22 dropperette polyethylene glycol 3350 17 17 g PO DAILY 07/22/20 11/07/22 gram/dose oral powder Previous Rx's Medication Instructions Recorded miscellaneous medical supply 1 ea miscellaneous .COMPLEX #1 ea 11/09/20 ipratropium 0.5 mg-albuterol 3 mg 3 ml inhalation Q6H PRN shortness 03/03/22 (2.5 mg base)/3 mL nebulization of breath or wheezing 30 days #180 soln mL cholecalciferol (vitamin D3) 50 50 mcg PO DAILY 90 days #90 caps 06/23/22 mcg (2,000 unit) capsule mometasone 0.1 % topical cream See Rx Instructions topical BID 07/15/22 PRN rash 30 days #45 grams nystatin 100,000 unit/mL oral 10 ml buccal TID 10 days #300 mL 08/31/22 suspension gabapentin 400 mg capsule 400 mg PO TID 90 days #270 caps 09/09/22 atorvastatin 10 mg tablet 10 mg PO DAILY #90 tabs 10/07/22 betamethasone dipropionate 0.05 % 1 appl topical BID PRN skin 10/07/22 topical cream irritation #45 grams sennosides 8.6 mg tablet (senna) 8.6 mg PO BEDTIME PRN for 11/01/22 constipation #90 tabs oxycodone-acetaminophen 5 mg-325 1 tab PO Q8H PRN low back pain 7 11/11/22 mg tablet days #21 tabs dexlansoprazole 60 mg 60 mg PO DAILY for acid reflux 30 12/27/22 capsule,biphase delayed release days #90 caps (Dexilant) albuterol sulfate 90 mcg/actuation 2 puff inhalation QID PRN 12/28/22 aerosol inhaler shortness of breath or wheezing #8.5 grams fluticasone propionate 220 2 puff PO BID #12 grams 12/28/22 mcg/actuation HFA aerosol inhaler (Flovent HFA) umeclidinium 62.5 mcg/actuation 1 inh inhalation DAILY #60 caps 12/28/22 blister powder for inhalation (Incruse Ellipta) clonazepam 0.5 mg tablet 0.5 mg PO TID PRN anxiety 30 days 01/27/23 #90 tabs nifedipine 30 mg tablet,extended 30 mg PO DAILY #90 tabs 01/27/23 release famotidine 40 mg tablet 40 mg PO DAILY 30 days #30 tabs 02/14/23 amitriptyline 75 mg tablet 75 mg PO DAILY #90 tabs 03/01/23 bupropion HCl 150 mg 24 hr tablet, 150 mg PO QAM 90 days #90 tabs 03/01/23 extended release hydrochlorothiazide 25 mg tablet 25 mg PO DAILY #90 tabs 03/01/23 cefdinir 300 mg capsule 300 mg PO BID 7 days #14 caps 03/11/23 nirmatrelvir 300 mg (150 mg See Rx Instructions PO .COMPLEX 03/13/23 x2)-ritonavir 100 mg tablet,dose #30 ea pack(EUA) (Paxlovid) Allergies Allergy/AdvReac Type Severity Reaction Status Date / Time Sulfa (Sulfonamide Allergy Severe ANAPHYLAXIS Verified 03/13/23 12:00 Antibiotics) Penicillins Allergy Mild RASH Verified 03/13/23 12:00 aspirin [ASA] Allergy Unknown UNKNOWN, Verified 03/13/23 12:00 stomach upset codeine [Codeine] Allergy Unknown NAUSEA & Verified 03/13/23 12:00 VOMITING diphenhydramine [Advil PM] Allergy Unknown Unknown Verified 03/13/23 12:00 ibuprofen [From ADVIL] Allergy Unknown UNKNOWN Verified 03/13/23 12:00 Review of Systems Review of Systems: CONSTITUTIONAL: Denies weight loss, fever and chills. HEENT: Denies changes in vision and hearing. RESPIRATORY: Denies SOB and cough. CV: Denies palpitations no CP. GI: Denies abdominal pain, nausea, vomiting and diarrhea. : Denies dysuria and urinary frequency. MSK: Denies myalgia and joint pain. SKIN: Denies rash and pruritus. NEUROLOGICAL: Denies headache and syncope. PSYCHIATRIC: Denies recent changes in mood. Denies anxiety and depression. All other ROS are negative unless in [facility] Past Medical History Medical History Anxiety Benign essential hypertension Chronic allergic bronchitis Constipation Depression Elevated C-reactive protein (CRP) GERD (gastroesophageal reflux disease) Lumbar degenerative disc disease Malignant neoplasm of left kidney Obstructive sleep apnea Oral thrush Palpitations Primary osteoarthritis of knees, bilateral Pure hypercholesterolemia Renal cell carcinoma of left kidney Right foot pain Status post fall Vitamin D deficiency Surgical History History of nephrectomy Family History Family History Father Hypertension CVD (cardiovascular disease) Cancer Mother Hypertension Substance abuse Other Mental health problem Social History Social History Housing: House Alcohol intake: unknown Patient Tobacco Use Status: Former Tobacco user Quit Date: 2011 Years Smoked: 35 +/- Smoked in Last 30 Days: No e-Cigarette/Vaping Use: Currently Using Second Hand Smoke Exposure: Yes Use of substances other than those prescribed or required for medical reasons: No Advance Directives: No Advance Directives Information Provided: Yes service: No Current occupational status: disabled Cognitive needs: No Hearing needs: No Vision needs: No Physical Exam ED Vital Signs: Vital Signs - 24 hr 03/13/23 12:01 03/13/23 12:10 03/13/23 12:40 Temperature 98.0 F Pulse Rate 97 92 Respiratory Rate 16 14 Blood Pressure 144/77 H Pulse Oximetry 85 L 95 92 Oxygen Delivery Method Room Air Nasal Cannula Room Air Oxygen Flow Rate 1 03/13/23 14:02 Temperature 98.5 F Pulse Rate 89 Respiratory Rate 15 Blood Pressure 118/77 Pulse Oximetry 97 Oxygen Delivery Method Room Air Oxygen Flow Rate BMI result Body Mass Index 25.7 GEN: Well developed, no acute distress, alert, 2 HEENT: Normocephalic, atraumatic, normal external ears, nose appears normal, no oropharyngeal edema or exudates Eyes: Normal to appearance Neck: Supple, no lymphadenopathy Respiratory: Talks in complete sentences, no respiratory distress, clear to auscultation bilaterally Cardiovascular: Regular rate and rhythm, no murmurs rubs or gallops Abdomen: Soft, nontender, nondistended, no guarding, no rebound Back: No CVA tenderness Extremities: No clubbing cyanosis or edema Neurologic: No focal neurologic deficits, cranial nerves 2-12 intact, strength is 5/5 bilaterally Skin: No rash Course Course Course Narrative: 67-year-old female presents with hypoxia, confusion. Turns out patient tested positive for COVID. I took patient off oxygen her O2 saturations 99% on room air. I contacted the patient's . He reports her being at her baseline mental status. He is comfortable taking her home with a low threshold to return to the hospital. Will start patient on Paxil that. Patient is also comfortable with this plan Medical Decision Making Medical Decision Making MDM Narrative: Patient presents with confusion, altered mental status. Exam is nonfocal. She has no evidence of meningeal signs, fever to suggest meningitis. Differential diagnosis could include UTI, which tried abnormality, metabolic abnormality, head injury, acute confusional state. Plan check laboratory analysis, CT scan of the head, chest x-ray given hypoxia. Patient may very well require hospitalization Differential Diagnosis Differential Diagnoses: The differential diagnosis associated with the presentation includes (See above) Admission/Observation Consideration of admission/observation: Escalation of care including admission/observation considered Lab Data 03/13/23 12:49 03/13/23 12:49 Labs: Lab Results 03/13/23 03/13/23 03/13/23 Range/Units 12:49 12:49 12:49 WBC (4.8-10.8) X10*3/uL RBC (4.20-5.50) X10*6/uL Hgb (12.0-16.0) g/dl Hct (37.0-47.0) % MCV (80.0-98.0) fL MCH (27.0-33.0) pg MCHC (31.0-35.0) g/dl RDW (11.0-16.0) % Plt Count (160-400) X10*3/uL MPV (9.4-12.3) fL Immature Gran % (Auto) (0.0-0.4) % Neut % (Auto) (45-73) % Lymph % (Auto) (20-40) % Hendricks % (Auto) (2-11) % Eos % (Auto) (0-4) % Baso % (Auto) (0-2) % Lymph # (Auto) (1.2-4.9) X10*3/uL Hendricks # (Auto) (0.1-1.2) X10*3/uL Eos # (Auto) (0.0-0.4) X10*3/uL Baso # (Auto) (0.0-0.2) X10*3/uL Abs Immat Gran (auto) (0.00-0.03) X10*3/uL Absolute Neuts (auto) (2.0-8.3) x10*3/uL Absolute Nucleated RBC (0.0-0.012) X10*3/uL Nucleated RBC % (auto) (0.0-0.2) /100WBC ESR 14 (0-20) MM/HR O2 Saturation % ABG pH at Pt Temp (7.35-7.45) ABG pCO2 at Pt Temp (32-45) mmHg ABG pO2 at Pt Temp (83-108) mmHg ABG HCO3 (22-26) mmol/L ABG Base Excess (Actual) mmol/L Sodium 138 (135-145) mmol/L Potassium 3.6 (3.3-5.1) mmol/L Chloride 96 (96-108) mmol/L Carbon Dioxide 33 H (22-29) mmol/L Anion Gap 13 (12-20) BUN 9 (9-16) mg/dL Creatinine 0.70 (0.5-1.4) mg/dL Estim Creat Clear Calc 74.9 Estimated GFR > 60 Random Glucose 113 (60-115) mg/dL Lactic Acid 1.1 (0.5-2.0) mmol/L Calcium 9.9 (8.4-10.2) mg/dL Magnesium 2.1 (1.6-2.6) mg/dL Total Bilirubin 0.9 (0.0-1.0) mg/dL AST 13 (5-31) U/L ALT 9 (0-31) U/L Alkaline Phosphatase 91 (39-117) U/L Troponin I High Sens (<3.5-17.0) ng/L C-Reactive Protein < 0.10 (< or = 0.50) mg/dL Total Protein 7.3 (6.5-8.0) g/dL Albumin 4.0 (3.5-5.0) g/dL TSH 1.16 (0.32-4.0) uIU/mL Ethyl Alcohol < 10 mg/dL COVID-19 ([facility]ISE) (Negative) COVID-19 Clin Com 03/13/23 03/13/23 03/13/23 Range/Units 12:49 12:49 12:49 WBC 5.3 (4.8-10.8) X10*3/uL RBC 5.82 H (4.20-5.50) X10*6/uL Hgb 15.8 (12.0-16.0) g/dl Hct 48.4 H (37.0-47.0) % MCV 83.2 (80.0-98.0) fL MCH 27.1 (27.0-33.0) pg MCHC 32.6 (31.0-35.0) g/dl RDW 12.8 (11.0-16.0) % Plt Count 365 (160-400) X10*3/uL MPV 9.5 (9.4-12.3) fL Immature Gran % (Auto) 0.2 (0.0-0.4) % Neut % (Auto) 72.0 (45-73) % Lymph % (Auto) 14.7 L (20-40) % Hendricks % (Auto) 10.0 (2-11) % Eos % (Auto) 2.3 (0-4) % Baso % (Auto) 0.8 (0-2) % Lymph # (Auto) 0.8 L (1.2-4.9) X10*3/uL Hendricks # (Auto) 0.5 (0.1-1.2) X10*3/uL Eos # (Auto) 0.1 (0.0-0.4) X10*3/uL Baso # (Auto) 0.0 (0.0-0.2) X10*3/uL Abs Immat Gran (auto) 0.01 (0.00-0.03) X10*3/uL Absolute Neuts (auto) 3.8 (2.0-8.3) x10*3/uL Absolute Nucleated RBC 0.000 (0.0-0.012) X10*3/uL Nucleated RBC % (auto) 0.0 (0.0-0.2) /100WBC ESR (0-20) MM/HR O2 Saturation % ABG pH at Pt Temp (7.35-7.45) ABG pCO2 at Pt Temp (32-45) mmHg ABG pO2 at Pt Temp (83-108) mmHg ABG HCO3 (22-26) mmol/L ABG Base Excess (Actual) mmol/L Sodium (135-145) mmol/L Potassium (3.3-5.1) mmol/L Chloride (96-108) mmol/L Carbon Dioxide (22-29) mmol/L Anion Gap (12-20) BUN (9-16) mg/dL Creatinine (0.5-1.4) mg/dL Estim Creat Clear Calc Estimated GFR Random Glucose (60-115) mg/dL Lactic Acid (0.5-2.0) mmol/L Calcium (8.4-10.2) mg/dL Magnesium (1.6-2.6) mg/dL Total Bilirubin (0.0-1.0) mg/dL AST (5-31) U/L ALT (0-31) U/L Alkaline Phosphatase (39-117) U/L Troponin I High Sens < 2.7 (<3.5-17.0) ng/L C-Reactive Protein (< or = 0.50) mg/dL Total Protein (6.5-8.0) g/dL Albumin (3.5-5.0) g/dL TSH (0.32-4.0) uIU/mL Ethyl Alcohol mg/dL COVID-19 ([facility]) Positive A (Negative) COVID-19 Clin Com See Note 03/13/23 Range/Units 14:01 WBC (4.8-10.8) X10*3/uL RBC (4.20-5.50) X10*6/uL Hgb (12.0-16.0) g/dl Hct (37.0-47.0) % MCV (80.0-98.0) fL MCH (27.0-33.0) pg MCHC (31.0-35.0) g/dl RDW (11.0-16.0) % Plt Count (160-400) X10*3/uL MPV (9.4-12.3) fL Immature Gran % (Auto) (0.0-0.4) % Neut % (Auto) (45-73) % Lymph % (Auto) (20-40) % Hendricks % (Auto) (2-11) % Eos % (Auto) (0-4) % Baso % (Auto) (0-2) % Lymph # (Auto) (1.2-4.9) X10*3/uL Hendricks # (Auto) (0.1-1.2) X10*3/uL Eos # (Auto) (0.0-0.4) X10*3/uL Baso # (Auto) (0.0-0.2) X10*3/uL Abs Immat Gran (auto) (0.00-0.03) X10*3/uL Absolute Neuts (auto) (2.0-8.3) x10*3/uL Absolute Nucleated RBC (0.0-0.012) X10*3/uL Nucleated RBC % (auto) (0.0-0.2) /100WBC ESR (0-20) MM/HR O2 Saturation 98.0 % ABG pH at Pt Temp 7.50 H (7.35-7.45) ABG pCO2 at Pt Temp 53 H (32-45) mmHg ABG pO2 at Pt Temp 86 (83-108) mmHg ABG HCO3 41 H (22-26) mmol/L ABG Base Excess (Actual) 15.8 mmol/L Sodium (135-145) mmol/L Potassium (3.3-5.1) mmol/L Chloride (96-108) mmol/L Carbon Dioxide (22-29) mmol/L Anion Gap (12-20) BUN (9-16) mg/dL Creatinine (0.5-1.4) mg/dL Estim Creat Clear Calc Estimated GFR Random Glucose (60-115) mg/dL Lactic Acid (0.5-2.0) mmol/L Calcium (8.4-10.2) mg/dL Magnesium (1.6-2.6) mg/dL Total Bilirubin (0.0-1.0) mg/dL AST (5-31) U/L ALT (0-31) U/L Alkaline Phosphatase (39-117) U/L Troponin I High Sens (<3.5-17.0) ng/L C-Reactive Protein (< or = 0.50) mg/dL Total Protein (6.5-8.0) g/dL Albumin (3.5-5.0) g/dL TSH (0.32-4.0) uIU/mL Ethyl Alcohol mg/dL COVID-19 ([facility]) (Negative) COVID-19 Clin Com Independent Interpretation I performed an independent interpretation of an: EKG (Normal sinus rhythm heart rate 90, no acute ST elevations depressions, normal intervals) and Plain X-Ray (Chest: No acute cardiopulmonary disease) External Record Review External record reviewed: Outpatient record Tests considered The following testing was considered but not selected: MRI brain Prescription Management I considered prescription management with: Antibiotic Discharge Plan Discharge Clinical Impression: Hypoxia, Acute confusion, COVID-19 Patient Disposition: Home, Self-Care Instructions: Hypoxia (ED) Prescriptions: New Paxlovid (EUA) 300 mg (150 mg x 2)-100 mg tablets,dose pack See Rx Instructions .ROUTE .COMPLEX Qty: 30 0RF Rx Instructions: take TWO 150 mg tablets of nirmatrelvir with ONE 100 mg tablet of ritonavir twice daily for 5 days No Action miscellaneous medical supply Misc 1 ea miscellaneous .COMPLEX Qty: 1 0RF Rx Instructions: 1 ea miscellaneous Nebulizer Machine DIRECTED cholecalciferol (vitamin D3) 50 mcg (2,000 unit) capsule 50 mcg PO DAILY 90 Days Qty: 90 3RF mometasone 0.1 % cream See Rx Instructions topical BID PRN (Reason: rash) 30 Days Qty: 45 0RF Rx Instructions: apply to affected areas topical 2 times a day PRN; gabapentin 400 mg capsule 400 mg PO TID 90 Days Qty: 270 1RF betamethasone dipropionate 0.05 % cream 1 appl topical BID PRN (Reason: skin irritation) Qty: 45 0RF atorvastatin 10 mg tablet 10 mg PO DAILY Qty: 90 2RF sennosides [senna] 8.6 mg tablet 8.6 mg PO BEDTIME PRN (Reason: for constipation) Qty: 90 1RF oxycodone-acetaminophen 5-325 mg tablet 1 tab PO Q8H PRN (Reason: low back pain) 7 Days Qty: 21 0RF dexlansoprazole [Dexilant] 60 mg capsule,biphase delayed releas 60 mg PO DAILY 30 Days Qty: 90 1RF nifedipine 30 mg tablet extended release 30 mg PO DAILY Qty: 90 3RF clonazepam 0.5 mg tablet 0.5 mg PO TID PRN (Reason: anxiety) 30 Days Qty: 90 0RF hydrochlorothiazide 25 mg tablet 25 mg PO DAILY Qty: 90 1RF bupropion HCl 150 mg tablet extended release 24 hr 150 mg PO QAM 90 Days Qty: 90 1RF amitriptyline 75 mg tablet 75 mg PO DAILY Qty: 90 1RF cefdinir 300 mg capsule 300 mg PO BID 7 Days Qty: 14 0RF nystatin 100,000 unit/mL suspension 10 ml buccal TID 10 Days Qty: 300 0RF Rx Instructions: swish 1/2 of dose in each side of the mouth for up to 5 minutes, then spit out the medicine polyethylene glycol 3350 17 gram/dose powder 17 g PO DAILY Restasis 0.05 % dropperette 1 drp ophthalmic (eye) BID albuterol sulfate 90 mcg/actuation HFA aerosol inhaler 2 puff inhalation QID PRN (Reason: shortness of breath or wheezing) Qty: 8.5 6RF fluticasone propionate [Flovent HFA] 220 mcg/actuation HFA aerosol inhaler 2 puff PO BID Qty: 12 6RF Incruse Ellipta 62.5 mcg/actuation blister with device 1 inh inhalation DAILY Qty: 60 6RF ipratropium-albuterol 0.5 mg-3 mg(2.5 mg base)/3 mL solution for nebulization 3 ml inhalation Q6H PRN (Reason: shortness of breath or wheezing) 30 Days Qty: 180 6RF famotidine 40 mg tablet 40 mg PO DAILY 30 Days Qty: 30 6RF Referrals: Dominic Lin MD [Primary Care Provider] -
[2023-03-13 13:37] LABS: Erythrocyte Sedimentation Rate 14 MM/HR (0-20)
[2023-03-13 14:02] VITALS: BP 118/77; PULSE 89; RESP 15; TEMP 36.9; O2SAT 97
[2023-03-13 14:07] LABS: ABG Refer to POC result
[2023-03-13 14:08] LABS: ABG Base Excess 15.8 mmol/L; ABG HCO3 41 mmol/L (22-26); ABG pCO2 53 mmHg (32-45); ABG pO2 86 mmHg (83-108)
[2023-03-13 14:10] LABS: Ethanol < 10 mg/dL
[2023-03-13 14:23] LABS: Thyroid Stimulating Hormone 1.16 uIU/mL (0.32-4.0)
[2023-03-13 16:00] VITALS: BP 108/72; PULSE 84; RESP 16; TEMP 36.9; O2SAT 96
--- NOTE | 2023-03-13 17:33 | PC.NURSE ---
spoke with , no longer coming to pick pt up, sister Shazia is coming to car pick up driver pt.
== END 2023-03-13 17:52 | disposition home or self-care (01) ==
PROVIDERS: Physician Assistant Medical; Emergency Provider Emergency Medicine; PCP Internal Medicine
DX: U07.1 COVID-19 (principal); R09.02 Hypoxemia; R41.0 Disorientation, unspecified; I10 Essential (primary) hypertension; E78.00 Pure hypercholesterolemia, unspecified; Z85.520 Personal history of malignant carcinoid tumor of kidney; Z79.02 Long term (current) use of antithrombotics/antiplatelets; Z79.899 Other long term (current) drug therapy
CPT/HCPCS: 36415; 71046; 80053; 80307; 82803; 83605; 83735; 84443; 84484; 85025; 85652; 86140; 87040; 87635; 93005; 99284; 99285

== ENCOUNTER 2023-03-15 21:57 | Emergency (ER) | payer OTHER, SELFPAY ==
[2023-03-15 22:00] VITALS: BP 149/85; PULSE 82; RESP 18; TEMP 36.5; O2SAT 94; BMI 21.5
--- NOTE | 2023-03-15 22:04 | ECG_ITS ---
Test Reason : WEAKNESS Blood Pressure : / mmHG Vent. Rate : 082 BPM Atrial Rate : 082 BPM P-R Int : 144 ms QRS Dur : 076 ms QT Int : 374 ms P-R-T Axes : 075 037 062 degrees QTc Int : 436 ms Normal sinus rhythm Normal ECG When compared with ECG of 13-MAR-2023 12:37, No significant change was found Referred By: Generic ED Physician Electronically Signed By:CHANCE CARRINGTON MD
--- NOTE | 2023-03-15 22:42 | ED.WEAKNESS ---
HPI - Weakness General Chief complaint: Failure to Thrive Stated complaint: pain? Time Seen by Provider: 03/15/23 22:39 History of Present Illness HPI Narrative: Patient is 67 years old with history of depression anxiety, COPD bronchiectasis ex-smoker been feeling weak for last 2 weeks was seen here on 03/10 and 03/13 diagnosed with UTI and COVID comes back as she is still feeling weak unable to take care of self having nausea and vomiting not eating well no diarrhea Related Data Home Medications Medication Instructions Recorded Confirmed cyclosporine 0.05 % eye drops in a 1 drp ophthalmic (eye) BID 07/22/20 11/07/22 dropperette polyethylene glycol 3350 17 17 g PO DAILY 07/22/20 11/07/22 gram/dose oral powder Previous Rx's Medication Instructions Recorded miscellaneous medical supply 1 ea miscellaneous .COMPLEX #1 ea 11/09/20 ipratropium 0.5 mg-albuterol 3 mg 3 ml inhalation Q6H PRN shortness 03/03/22 (2.5 mg base)/3 mL nebulization of breath or wheezing 30 days #180 soln mL cholecalciferol (vitamin D3) 50 50 mcg PO DAILY 90 days #90 caps 06/23/22 mcg (2,000 unit) capsule mometasone 0.1 % topical cream See Rx Instructions topical BID 07/15/22 PRN rash 30 days #45 grams nystatin 100,000 unit/mL oral 10 ml buccal TID 10 days #300 mL 08/31/22 suspension gabapentin 400 mg capsule 400 mg PO TID 90 days #270 caps 09/09/22 atorvastatin 10 mg tablet 10 mg PO DAILY #90 tabs 10/07/22 betamethasone dipropionate 0.05 % 1 appl topical BID PRN skin 10/07/22 topical cream irritation #45 grams sennosides 8.6 mg tablet (senna) 8.6 mg PO BEDTIME PRN for 11/01/22 constipation #90 tabs oxycodone-acetaminophen 5 mg-325 1 tab PO Q8H PRN low back pain 7 11/11/22 mg tablet days #21 tabs dexlansoprazole 60 mg 60 mg PO DAILY for acid reflux 30 12/27/22 capsule,biphase delayed release days #90 caps (Dexilant) albuterol sulfate 90 mcg/actuation 2 puff inhalation QID PRN 12/28/22 aerosol inhaler shortness of breath or wheezing #8.5 grams fluticasone propionate 220 2 puff PO BID #12 grams 12/28/22 mcg/actuation HFA aerosol inhaler (Flovent HFA) umeclidinium 62.5 mcg/actuation 1 inh inhalation DAILY #60 caps 12/28/22 blister powder for inhalation (Incruse Ellipta) clonazepam 0.5 mg tablet 0.5 mg PO TID PRN anxiety 30 days 01/27/23 #90 tabs nifedipine 30 mg tablet,extended 30 mg PO DAILY #90 tabs 01/27/23 release famotidine 40 mg tablet 40 mg PO DAILY 30 days #30 tabs 02/14/23 amitriptyline 75 mg tablet 75 mg PO DAILY #90 tabs 03/01/23 bupropion HCl 150 mg 24 hr tablet, 150 mg PO QAM 90 days #90 tabs 03/01/23 extended release hydrochlorothiazide 25 mg tablet 25 mg PO DAILY #90 tabs 03/01/23 cefdinir 300 mg capsule 300 mg PO BID 7 days #14 caps 03/11/23 nirmatrelvir 300 mg (150 mg See Rx Instructions PO .COMPLEX 03/13/23 x2)-ritonavir 100 mg tablet,dose #30 ea pack (Paxlovid) Allergies Allergy/AdvReac Type Severity Reaction Status Date / Time Sulfa (Sulfonamide Allergy Severe ANAPHYLAXIS Verified 03/13/23 12:00 Antibiotics) Penicillins Allergy Mild RASH Verified 03/13/23 12:00 aspirin [ASA] Allergy Unknown UNKNOWN, Verified 03/13/23 12:00 stomach upset codeine [Codeine] Allergy Unknown NAUSEA & Verified 03/13/23 12:00 VOMITING diphenhydramine [Advil PM] Allergy Unknown Unknown Verified 03/13/23 12:00 ibuprofen [From ADVIL] Allergy Unknown UNKNOWN Verified 03/13/23 12:00 Review of Systems Review of Systems: Yes all other systems are reviewed and are negative PMF Past Medical History Medical History Anxiety Benign essential hypertension Chronic allergic bronchitis Constipation Depression Elevated C-reactive protein (CRP) GERD (gastroesophageal reflux disease) Lumbar degenerative disc disease Malignant neoplasm of left kidney Obstructive sleep apnea Oral thrush Palpitations Primary osteoarthritis of knees, bilateral Pure hypercholesterolemia Renal cell carcinoma of left kidney Right foot pain Status post fall Vitamin D deficiency Surgical History History of nephrectomy Family History Family History Father Hypertension CVD (cardiovascular disease) Cancer Mother Hypertension Substance abuse Other Mental health problem Social History Social History Housing: House Alcohol intake: never Patient Tobacco Use Status: Former Tobacco user Quit Date: 2011 Smoked: 35 +/- Smoked in Last 30 Days: No e-Cigarette/Vaping Use: Currently Using Second Hand Smoke Exposure: Yes Use of substances other than those prescribed or required for medical reasons: No Advance Directives: No Advance Directives Information Provided: Yes service: No Current occupational status: disabled Cognitive needs: No Hearing needs: No Vision needs: No Physical Exam Vital Signs: Vital Signs: Last Vital Signs Temp 98.4 F 03/16/23 02:15 Pulse 88 03/16/23 02:15 Resp 18 03/16/23 02:15 BP 128/88 03/16/23 02:15 Pulse Ox 99 03/16/23 02:15 O2 Del Method Room Air 03/16/23 02:15 BMI result Body Mass Index 21.5 Appearance: Alert. Oriented X3. No acute distress. Looks depressed Eyes: PERRLA, No Nystagmus ENT: Pharynx dry Oral Mucosa moist Neck: Normal inspection. Neck supple. CVS: Normal heart rate and rhythm. Pulses normal. Respiratory: No respiratory distress. Equal air entry bilateral, bilateral wheezing with coarse crackles Abdomen: Soft and nontender. Bowel sounds are present, no mass palpable, no CVA tenderness Skin: Skin warm and dry. Normal skin color. Normal skin turgor. Extremities: No lower extremity edema. No calf tenderness Neuro: Oriented X 3. No motor deficit. Medications Administered Discontinued Medications Generic Name Dose Route Start Last Admin Trade Name Freq PRN Reason Stop Dose Admin Albuterol Sulfate 2.5 mg/ 0 mg 03/16/23 01:06 03/16/23 01:19 Albuterol/Ipratropium 3 ml INHALE 03/16/23 01:07 1 each ONCE ONE Administration Sodium Chloride 1,000 mls @ 999 mls/hr 03/15/23 22:57 03/16/23 00:11 Ns IV 03/15/23 23:57 Infused .Q1H1M ONE Infusion Potassium Bicarbonate 25 meq 03/15/23 23:58 03/16/23 00:14 Potassium Bicarbonate/Cit Ac 25 Meq Tablet.Eff PO 03/15/23 23:59 25 meq ONCE ONE Administration Medical Decision Making Medical Decision Making [facility] Narrative: Patient with stable labs and workup likely depressed for patient tonight depression vital stable discharge patient back home advise follow with PCP Lab Data MDM Lab Attestation statement: I reviewed the patient's lab results. 03/15/23 22:47 03/15/23 22:47 Labs: Lab Results 03/15/23 03/15/23 03/16/23 Range/Units 22:47 22:47 01:41 WBC 7.0 (4.8-10.8) X10*3/uL RBC 5.34 (4.20-5.50) X10*6/uL Hgb 14.7 (12.0-16.0) g/dl Hct 44.5 (37.0-47.0) % MCV 83.3 (80.0-98.0) fL MCH 27.5 (27.0-33.0) pg MCHC 33.0 (31.0-35.0) g/dl RDW 12.8 (11.0-16.0) % Plt Count 391 (160-400) X10*3/uL MPV 9.5 (9.4-12.3) fL Immature Gran % (Auto) 0.1 (0.0-0.4) % Neut % (Auto) 74.3 H (45-73) % Lymph % (Auto) 14.2 L (20-40) % Door % (Auto) 8.7 (2-11) % Eos % (Auto) 1.7 (0-4) % Baso % (Auto) 1.0 (0-2) % Lymph # (Auto) 1.0 L (1.2-4.9) X10*3/uL Door # (Auto) 0.6 (0.1-1.2) X10*3/uL Eos # (Auto) 0.1 (0.0-0.4) X10*3/uL Baso # (Auto) 0.1 (0.0-0.2) X10*3/uL Abs Immat Gran (auto) 0.01 (0.00-0.03) X10*3/uL Absolute Neuts (auto) 5.2 (2.0-8.3) x10*3/uL Absolute Nucleated RBC 0.000 (0.0-0.012) X10*3/uL Nucleated RBC % (auto) 0.0 (0.0-0.2) /100WBC VBG pH 7.43 (7.32-7.43) VBG pCO2 53 mmHg VBG pO2 36 mmHg VBG HCO3 36 H (22-26) mmol/L VBG O2 Saturation 54.0 % VBG Base Excess 10.0 mmol/L Sodium 137 (135-145) mmol/L Potassium 3.1 L (3.3-5.1) mmol/L Chloride 93 L (96-108) mmol/L Carbon Dioxide 35 H (22-29) mmol/L Anion Gap 12 (12-20) BUN 7 L (9-16) mg/dL Creatinine 0.73 (0.5-1.4) mg/dL Estim Creat Clear Calc 65.5 Estimated GFR > 60 Random Glucose 96 (60-115) mg/dL Calcium 9.7 (8.4-10.2) mg/dL Magnesium 1.9 (1.6-2.6) mg/dL Total Bilirubin 0.7 (0.0-1.0) mg/dL AST 13 (5-31) U/L ALT 8 (0-31) U/L Alkaline Phosphatase 78 (39-117) U/L Total Protein 7.4 (6.5-8.0) g/dL Albumin 3.9 (3.5-5.0) g/dL Discharge Plan Discharge Clinical Impression: Weakness Patient Disposition: Home, Self-Care Instructions: Weakness (ED) Additional Instructions: Drink plenty of fluids Follow with PCP for? Depression Prescriptions: No Action miscellaneous medical supply Misc 1 ea miscellaneous .COMPLEX Qty: 1 0RF Rx Instructions: 1 ea miscellaneous Nebulizer Machine DIRECTED cholecalciferol (vitamin D3) 50 mcg (2,000 unit) capsule 50 mcg PO DAILY 90 Days Qty: 90 3RF mometasone 0.1 % cream See Rx Instructions topical BID PRN (Reason: rash) 30 Days Qty: 45 0RF Rx Instructions: apply to affected areas topical 2 times a day PRN; gabapentin 400 mg capsule 400 mg PO TID 90 Days Qty: 270 1RF betamethasone dipropionate 0.05 % cream 1 appl topical BID PRN (Reason: skin irritation) Qty: 45 0RF atorvastatin 10 mg tablet 10 mg PO DAILY Qty: 90 2RF sennosides [senna] 8.6 mg tablet 8.6 mg PO BEDTIME PRN (Reason: for constipation) Qty: 90 1RF oxycodone-acetaminophen 5-325 mg tablet 1 tab PO Q8H PRN (Reason: low back pain) 7 Days Qty: 21 0RF dexlansoprazole [Dexilant] 60 mg capsule,biphase delayed releas 60 mg PO DAILY 30 Days Qty: 90 1RF nifedipine 30 mg tablet extended release 30 mg PO DAILY Qty: 90 3RF clonazepam 0.5 mg tablet 0.5 mg PO TID PRN (Reason: anxiety) 30 Days Qty: 90 0RF hydrochlorothiazide 25 mg tablet 25 mg PO DAILY Qty: 90 1RF bupropion HCl 150 mg tablet extended release 24 hr 150 mg PO QAM 90 Days Qty: 90 1RF amitriptyline 75 mg tablet 75 mg PO DAILY Qty: 90 1RF cefdinir 300 mg capsule 300 mg PO BID 7 Days Qty: 14 0RF Paxlovid 300 mg (150 mg x 2)-100 mg tablets,dose pack See Rx Instructions .ROUTE .COMPLEX Qty: 30 0RF Rx Instructions: take TWO 150 mg tablets of nirmatrelvir with ONE 100 mg tablet of ritonavir twice daily for 5 days nystatin 100,000 unit/mL suspension 10 ml buccal TID 10 Days Qty: 300 0RF Rx Instructions: swish 1/2 of dose in each side of the mouth for up to 5 minutes, then spit out the medicine polyethylene glycol 3350 17 gram/dose powder 17 g PO DAILY Restasis 0.05 % dropperette 1 drp ophthalmic (eye) BID albuterol sulfate 90 mcg/actuation HFA aerosol inhaler 2 puff inhalation QID PRN (Reason: shortness of breath or wheezing) Qty: 8.5 6RF fluticasone propionate [Flovent HFA] 220 mcg/actuation HFA aerosol inhaler 2 puff PO BID Qty: 12 6RF Incruse Ellipta 62.5 mcg/actuation blister with device 1 inh inhalation DAILY Qty: 60 6RF ipratropium-albuterol 0.5 mg-3 mg(2.5 mg base)/3 mL solution for nebulization 3 ml inhalation Q6H PRN (Reason: shortness of breath or wheezing) 30 Days Qty: 180 6RF famotidine 40 mg tablet 40 mg PO DAILY 30 Days Qty: 30 6RF Interventions: ED Discharge Assessment Last Done: 03/16/23 02:17 Discharge Date/Time: 03/16/23 02:19
[2023-03-15 22:46] VITALS: BP 150/81; PULSE 89; RESP 18; TEMP 37.1; O2SAT 99
[2023-03-15 22:57] LABS: MANUAL DIFF FLAG NO
[2023-03-15 22:58] LABS: Basophils Absolute Auto 0.1 X10*3/uL (0.0-0.2); Eosinophils Absolute Auto 0.1 X10*3/uL (0.0-0.4); Eosinophils Percent Auto 1.7 % (0-4); Hematocrit 44.5 % (37.0-47.0); Hemoglobin 14.7 g/dl (12.0-16.0); Imm Gran Abs Auto 0.01 X10*3/uL (0.00-0.03); Imm Gran Pct Auto 0.1 % (0.0-0.4); Lymphocytes Percent Auto 14.2 % (20-40); Mean Corpuscular Hemoglobin 27.5 pg (27.0-33.0); Mean Corpuscular Volume 83.3 fL (80.0-98.0); Mean Platelet Volume 9.5 fL (9.4-12.3); Monocytes Absolute Auto 0.6 X10*3/uL (0.1-1.2); Monocytes Percent Auto 8.7 % (2-11); Neutrophils Absolute Auto 5.2 x10*3/uL (2.0-8.3); Neutrophils Percent Auto 74.3 % (45-73); Platelet Count 391 X10*3/uL (160-400); Red Blood Count 5.34 X10*6/uL (4.20-5.50); Red Cell Distribution Width 12.8 % (11.0-16.0)
[2023-03-15] MEDS: 0.9 % Sodium Chloride 1,000 ML 999 ML IV (23:05)
--- NOTE | 2023-03-15 23:05 | PC.NURSE ---
patient in bed with eyes open with family at the bedside patient was able to be administered a 20g in the right AC patient vitals are stable patient was able to have all labs to be sent to the laboratory patient family is at the bedside patient was just tried on monday patient will continue to be monitored for safety
[2023-03-15 23:14] LABS: Alanine Aminotransferase 8 U/L (0-31); Albumin Level 3.9 g/dL (3.5-5.0); Alkaline Phosphatase 78 U/L (39-117); Anion Gap 12 (12-20); Aspartate Amino Transferase 13 U/L (5-31); Bilirubin Total 0.7 mg/dL (0.0-1.0); Blood Urea Nitrogen 7 mg/dL (9-16); Calcium 9.7 mg/dL (8.4-10.2); Carbon Dioxide 35 mmol/L (22-29); Chloride 93 mmol/L (96-108); Creatinine Clr Calc Pharmacy 65.5; Estimated Glomerular Filt Rate > 60; Glucose Random 96 mg/dL (60-115); Magnesium 1.9 mg/dL (1.6-2.6); Potassium 3.1 mmol/L (3.3-5.1); Sodium 137 mmol/L (135-145); Total Protein 7.4 g/dL (6.5-8.0)
[2023-03-16] MEDS: Potassium Bicarbonate/Cit AC 25 MEQ TABLET.EFF PO (00:14)
--- NOTE | 2023-03-16 00:15 | PC.NURSE ---
patient was administered the potassium with no issues patient tolerated all IV fluids patient will continue to be monitored for safety until further orders
--- NOTE | 2023-03-16 00:50 | PC.NURSE ---
patient in bed with eyes closed showing no distress at this time patient vitals are stable patient showing no pain at this time patient will continue to be monitored for safety
[2023-03-16 01:23] VITALS: PULSE 83; RESP 16; O2SAT 97
[2023-03-16 01:47] LABS: Venous Blood Gas Refer to POC result
[2023-03-16 01:49] LABS: VBG HCO3 36 mmol/L (22-26); VBG pCO2 53 mmHg; VBG pH 7.43 (7.32-7.43); VBG pO2 36 mmHg
--- NOTE | 2023-03-16 02:06 | MHC.EDTECH ---
t/w walked pt around hallway on pulse ox. pt maintained 95% sat. dr lopez aware
[2023-03-16 02:15] VITALS: BP 128/88; PULSE 88; RESP 18; TEMP 36.9; O2SAT 99
== END 2023-03-16 02:19 | disposition home or self-care (01) ==
PROVIDERS: Emergency Provider Internal Medicine
DX: R53.1 Weakness (principal); R11.2 Nausea with vomiting, unspecified; J47.9 Bronchiectasis, uncomplicated; Z87.440 Personal history of urinary (tract) infections; Z86.16 Personal history of COVID-19
CPT/HCPCS: 36415; 80053; 82803; 83735; 85025; 93005; 94640; 96360; 99284; 99285

== ENCOUNTER 2023-03-22 09:05 | Outpatient (REF) | payer OTHER, SELFPAY ==
[2023-03-22 09:17] LABS: MANUAL DIFF FLAG NO
[2023-03-22 10:10] LABS: Basophils Absolute Auto 0.1 X10*3/uL (0.0-0.2); Basophils Percent Auto 1.3 % (0-2); Eosinophils Absolute Auto 0.1 X10*3/uL (0.0-0.4); Eosinophils Percent Auto 1.9 % (0-4); Hemoglobin 13.9 g/dl (12.0-16.0); Imm Gran Abs Auto 0.03 X10*3/uL (0.00-0.03); Imm Gran Pct Auto 0.4 % (0.0-0.4); Lymphocytes Absolute Auto 0.9 X10*3/uL (1.2-4.9); Lymphocytes Percent Auto 12.5 % (20-40); Mean Corpuscular HGB Conc 32.3 g/dl (31.0-35.0); Mean Corpuscular Hemoglobin 27.6 pg (27.0-33.0); Mean Corpuscular Volume 85.5 fL (80.0-98.0); Mean Platelet Volume 9.6 fL (9.4-12.3); Monocytes Absolute Auto 0.6 X10*3/uL (0.1-1.2); Monocytes Percent Auto 8.6 % (2-11); Neutrophils Absolute Auto 5.2 x10*3/uL (2.0-8.3); Neutrophils Percent Auto 75.3 % (45-73); Platelet Count 411 X10*3/uL (160-400); Red Blood Count 5.03 X10*6/uL (4.20-5.50); Red Cell Distribution Width 13.1 % (11.0-16.0); White Blood Count 6.9 X10*3/uL (4.8-10.8)
[2023-03-22 10:21] LABS: Appearance Urine Clear; Color Urine Yellow; Glucose Urine UA Negative (Negative); Leukocyte Esterase Urine Moderate (2+) (Negative); Nitrite Urine Negative (Negative); Specific Gravity - Urine 1.015 (1.005-1.025); UMIC TRIGGER UACC YES; Urine Blood Negative (Negative); Urine Ketones Negative (Negative); Urine Protein Trace mg/dL (Neg-Trace)
[2023-03-22 10:24] LABS: Bacteria Urine None Seen (None Seen); Hyaline Casts Urine 0-2 /LPF (0-2); RBC Urine 0-2 /HPF (0-2); UACC Culture Trigger YES
[2023-03-22 11:43] LABS: Alanine Aminotransferase 14 U/L (0-31); Albumin Level 4.2 g/dL (3.5-5.0); Alkaline Phosphatase 86 U/L (39-117); Anion Gap 13 (12-20); Aspartate Amino Transferase 17 U/L (5-31); Bilirubin Total 0.7 mg/dL (0.0-1.0); Blood Urea Nitrogen 4 mg/dL (9-16); Calcium 10.1 mg/dL (8.4-10.2); Carbon Dioxide 28 mmol/L (22-29); Chloride 102 mmol/L (96-108); Cholesterol 204 mg/dL; Estimated Glomerular Filt Rate > 60; Glucose Fasting 96 mg/dL (60-99); Glucose Random 96 mg/dL (60-115); HDL Cholesterol 46 mg/dL; LDL Cholesterol Calculated 127 mg/dl; Potassium 3.8 mmol/L (3.3-5.1); Sodium 139 mmol/L (135-145); TSH reflex Free T4 1.02 uIU/mL (0.32-4.0); Total Protein 7.7 g/dL (6.5-8.0); Triglycerides 156 mg/dL
== END 2023-03-22 09:06 | disposition home or self-care (01) ==
LOC: HO.LAB 09:05
PROVIDERS: PCP Internal Medicine; Visit Provider Internal Medicine
DX: E78.00 Pure hypercholesterolemia, unspecified (principal); E55.9 Vitamin D deficiency, unspecified; I10 Essential (primary) hypertension; R41.0 Disorientation, unspecified
CPT/HCPCS: 36415; 80053; 80061; 81001; 82306; 84443; 85025; 87086

== ENCOUNTER 2023-04-13 14:13 | Outpatient (REF) | payer OTHER, SELFPAY ==
[2023-04-13 14:44] LABS: MANUAL DIFF FLAG NO
[2023-04-13 15:09] LABS: Basophils Absolute Auto 0.1 X10*3/uL (0.0-0.2); Basophils Percent Auto 0.9 % (0-2); Eosinophils Absolute Auto 0.4 X10*3/uL (0.0-0.4); Eosinophils Percent Auto 4.6 % (0-4); Hematocrit 37.6 % (37.0-47.0); Hemoglobin 11.9 g/dl (12.0-16.0); Imm Gran Abs Auto 0.04 X10*3/uL (0.00-0.03); Imm Gran Pct Auto 0.5 % (0.0-0.4); Lymphocytes Absolute Auto 0.9 X10*3/uL (1.2-4.9); Lymphocytes Percent Auto 11.7 % (20-40); Mean Corpuscular HGB Conc 31.6 g/dl (31.0-35.0); Mean Corpuscular Hemoglobin 27.6 pg (27.0-33.0); Mean Corpuscular Volume 87.2 fL (80.0-98.0); Mean Platelet Volume 8.7 fL (9.4-12.3); Monocytes Absolute Auto 0.7 X10*3/uL (0.1-1.2); Monocytes Percent Auto 8.5 % (2-11); Neutrophils Absolute Auto 5.7 x10*3/uL (2.0-8.3); Neutrophils Percent Auto 73.8 % (45-73); Platelet Count 406 X10*3/uL (160-400); Red Blood Count 4.31 X10*6/uL (4.20-5.50); Red Cell Distribution Width 14.9 % (11.0-16.0); White Blood Count 7.7 X10*3/uL (4.8-10.8)
[2023-04-13 15:10] LABS: Appearance Urine Cloudy; Color Urine Yellow; Glucose Urine UA Negative (Negative); Leukocyte Esterase Urine Large (3+) (Negative); Nitrite Urine Negative (Negative); UMIC TRIGGER UACC YES; Urine Blood Trace (Negative); Urine Ketones Negative (Negative); Urine Protein Negative (Neg-Trace)
[2023-04-13 15:12] LABS: Bacteria Urine 4+ (None Seen); Hyaline Casts Urine 0-2 /LPF (0-2); RBC Urine 0-2 /HPF (0-2); Squamous Epithelial Cell Urine 0-2 /HPF (0-2); UACC Culture Trigger YES; WBC Urine >50 /HPF (0-5)
== END 2023-04-13 14:14 | disposition home or self-care (01) ==
LOC: HO.LAB 14:13
PROVIDERS: Nurse Practitioner Family; PCP Internal Medicine; Visit Provider Internal Medicine
DX: R41.0 Disorientation, unspecified (principal)
CPT/HCPCS: 36415; 81001; 85025; 87086; 87088; 87186

== ENCOUNTER 2023-04-18 12:11 | Outpatient (AMB) | payer OTHER, SELFPAY ==
--- NOTE | 2023-04-18 12:33 | MHC.OFFWIV ---
Intake Vital Signs 04/18/23 12:38 Height 5 ft 4 in BP 126/54 L Blood Pressure Location Lt brachial Position Sitting Pulse 100 Pulse Source Pulse Oximeter Temp 97.2 F Temp Source Temporal Artery Scan Pulse Oximetry (%) 94 Oxygen Delivery Method Room Air Intake Visit Reasons: EST/possible pneumonia?(masked) Intake Note: Pt is here c/o possible pneumonia with a sore throat for the last few days. Patient Tobacco Use Status: Former Tobacco user Quit Date: 2011 Allergies Sulfa (Sulfonamide Antibiotics) Allergy (Severe, Verified 04/18/23 12:37) ANAPHYLAXIS Penicillins Allergy (Mild, Verified 04/18/23 12:37) RASH aspirin [ASA] Allergy (Unknown, Verified 04/18/23 12:37) UNKNOWN, stomach upset codeine [Codeine] Allergy (Unknown, Verified 04/18/23 12:37) NAUSEA & VOMITING diphenhydramine [Advil PM] Allergy (Unknown, Verified 04/18/23 12:37) Unknown ibuprofen [From ADVIL] Allergy (Unknown, Verified 04/18/23 12:37) UNKNOWN Do you need a note to return to daycare/school/sports/work: No HPI EST/possible pneumonia?(masked) HPI Details Patient presents with left posterior back pain with deep breath x1 week. She notes history 1 month ago of pneumonia, COVID, UTI with altered mental status. She notes just last week she started with UTI symptoms again is on Macrobid in these have improved. She does have history of chest wall pain as well as COPD. Her symptoms began with a sore throat which is still present today. She denies chest pain, shortness of breath, abdominal symptoms. She admits to fever x2 days but has not had 1 in the past 2 days. Denies nasal congestion or productive cough. [facility] Medical History Anxiety Benign essential hypertension Chronic allergic bronchitis Constipation Depression Elevated C-reactive protein (CRP) GERD (gastroesophageal reflux disease) Lumbar degenerative disc disease Malignant neoplasm of left kidney Obstructive sleep apnea Oral thrush Palpitations Primary osteoarthritis of knees, bilateral Pure hypercholesterolemia Renal cell carcinoma of left kidney Right foot pain Status post fall Vitamin D deficiency Surgical History History of nephrectomy Family History Father Hypertension CVD (cardiovascular disease) Cancer Mother Hypertension Substance abuse Other Mental health problem Social History Housing: House Alcohol intake: never Patient Tobacco Use Status: Former Tobacco user Quit Date: 2011 Years Smoked: 35 +/- e-Cigarette/Vaping Use: Currently Using Second Hand Smoke Exposure: Yes service: No Current occupational status: disabled Cognitive needs: No Hearing needs: No Vision needs: No Review of Systems Const Reports as per HPI and Reports no additional complaints ENT Reports no additional complaints and Reports as per HPI Card Reports as per HPI and Reports no additional complaints Resp Reports as per HPI and Reports no additional complaints GI Reports as per HPI and Reports no additional complaints Musc Reports no additional complaints and Reports as per HPI Skin/Breast Denies lesions Neuro Reports no additional complaints and Reports as per HPI Physical Exam Vital Signs: Last Vital Signs Temp 97.2 F 04/18/23 12:38 Pulse 100 04/18/23 12:38 BP 126/54 L 04/18/23 12:38 Pulse Ox 94 04/18/23 12:38 Oxygen Delivery Method Room Air 04/18/23 12:38 Const General: cooperative, comfortable and no acute distress Orientation/consciousness: patient oriented x3 HEENT Ears: TM's normal bilaterally General nose exam: Normal nasal mucous membranes and turbinates present Face and sinus: Yes sinuses nontender Mouth: Normal oral and palatal mucosa present Throat: Yes posterior oropharynx normal Neck Neck: Yes no lymphadenopathy Resp Effort & Inspection: abnormal respiratory effort, able to speak in complete sentences and decreased respiratory effort (Does not take full deep breath secondary to pain in the left lower lobe) Auscultation: clear to auscultation bilaterally Cardio Rate: regular rate Rhythm: regular rhythm Heart sounds: S1 normal heart sound present and S2 normal heart sound present Neuro General: patient oriented x3 Results AMB Rapid Strep AMB Rapid Strep Negative Last Edit by TEE Hernandez on 04/18/23 13:10 Results Reviewed Results Reviewed: Chest x-ray contemporaneously read by me without discrete consolidation or new acute findings compared to previous. Will report radiology results as available if different. Assessment & Plan Assessment & Plan (1) Painful respiratory movement: Code(s): R07.1 - Chest pain on breathing (2) COPD exacerbation: Code(s): J44.1 - Chronic obstructive pulmonary disease with (acute) exacerbation Plan Will trial course of prednisone and a Z-Dwight. Patient strongly advised to seek treatment in ED she experiences altered mental status again or worsening pain or difficulty breathing. Return to clinic her PCP if symptoms do not improve over the next 3-5 days. Orders: Orders XR chest 2V Today R07.1 - Chest pain on breathing SARS-CoV2/FLU/RSV Today B34.9 - Viral infection, unspecified AMB Rapid Strep Screen Today Z13.9 - Encounter for screening, unspecified Medications: New azithromycin (Zithromax Z-Dwight) 2 pills day one then 1 pill per day x 4 days 250 mg PO DAILY 5 days 6 tabs 0RF prednisone 20 mg PO DAILY 5 days 5 tabs 0RF Coding Level of Care Code Est Pt Level 4 (85295) Diagnoses Painful respiratory movement R07.1 COPD exacerbation J44.1
[2023-04-18 12:38] VITALS: BP 126/54; PULSE 100; TEMP 36.2; O2SAT 94
== END 2023-04-18 13:25 | disposition home or self-care (01) ==
PROVIDERS: PCP Internal Medicine; Visit Provider Physician Assistant
DX: R07.1 Chest pain on breathing (principal); J44.1 Chronic obstructive pulmonary disease with (acute) exacerbation; J02.9 Acute pharyngitis, unspecified
CPT/HCPCS: 87880; 99214

== ENCOUNTER 2023-04-18 13:04 | Outpatient (REF) | payer OTHER, SELFPAY ==
--- NOTE | ~2023-04-18 | XR_ITS ---
EXAMINATION: XR CHEST CLINICAL INFORMATION: Chest pain on breathing COMPARISON: Multiple previous chest radiographs, CTs, most recent, 03/13/2023 TECHNIQUE: 2 views of the chest were obtained. FINDINGS: Heart and mediastinum within normal limits. Diffuse vague opacities are seen bilateral lower and left upper lobes. Vascularity within normal limits. Left costophrenic angle blunting is seen. XR/XR chest 2V IMPRESSION: Bilateral pulmonary opacities, likely groundglass, possibly infectious/inflammatory. This appears to be recurring pattern for patient.
[2023-04-18 17:28] LABS: Influenza A PCR NEGATIVE (Negative); Influenza B PCR NEGATIVE (Negative); Resp Syncy Virus RNA Qual PCR NEGATIVE (Negative); SARS COV2 PCR INHOUSE NEGATIVE (Negative)
== END 2023-04-18 13:05 | disposition home or self-care (01) ==
LOC: HO.HMGCX 13:04
PROVIDERS: PCP Internal Medicine; Visit Provider Physician Assistant
DX: R07.1 Chest pain on breathing (principal); Z20.822 Contact with and (suspected) exposure to COVID-19
CPT/HCPCS: 0241U; 71046

== ENCOUNTER 2023-05-19 16:14 | Outpatient (AMB) | payer OTHER, SELFPAY ==
[2023-05-19 16:18] VITALS: BP 122/60; PULSE 106; O2SAT 94; BMI 21.3
--- NOTE | 2023-05-19 16:18 | A.OFFPC_ITS ---
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 Accompanied by: Self / Same As Patient Allergies Sulfa (Sulfonamide Antibiotics) Allergy (Severe, Verified 05/20/23 21:46) ANAPHYLAXIS Penicillins Allergy (Mild, Verified 05/20/23 21:46) RASH aspirin [ASA] Allergy (Unknown, Verified 05/20/23 21:46) UNKNOWN, stomach upset codeine [Codeine] Allergy (Unknown, Verified 05/20/23 21:46) NAUSEA & VOMITING diphenhydramine [Advil PM] Allergy (Unknown, Verified 05/20/23 21:46) Unknown ibuprofen [From ADVIL] Allergy (Unknown, Verified 05/20/23 21:46) UNKNOWN Medication List - Last Reconciled 05/20/23 by Dominic Lin MD albuterol sulfate 90 mcg/actuation 2 puffs inhalation QID PRN amitriptyline 75 mg PO DAILY atorvastatin 10 mg PO DAILY betamethasone dipropionate 0.05% 1 appl topical BID PRN bupropion HCl 150 mg PO QAM 90 days cholecalciferol (vitamin D3) 50 mcg PO DAILY 90 days clonazepam 0.5 mg PO TID PRN 30 days cyclosporine 0.05% 1 drp ophthalmic (eye) BID dexlansoprazole (Dexilant) 60 mg PO DAILY 30 days famotidine 40 mg PO DAILY 30 days fluticasone propionate 220 mcg/actuation (Flovent HFA) 2 puffs PO BID gabapentin 400 mg PO TID 90 days hydrochlorothiazide 25 mg PO DAILY ipratropium-albuterol 0.5 mg-3 mg(2.5 mg base)/3 mL 3 mL inhalation Q6H PRN 30 days levofloxacin 500 mg PO DAILY 7 days miscellaneous medical supply 1 ea [employer] mometasone 0.1% apply to affected areas topical 2 times a day PRN; 30 days nifedipine ER 30 mg PO DAILY nystatin 10 mL buccal TID 10 days oxycodone-acetaminophen 5-325 mg 1 tab PO Q8H PRN 7 days polyethylene glycol 3350 17 grams PO DAILY sennosides (senna) 8.6 mg PO BEDTIME PRN umeclidinium 62.5 mcg/actuation (Incruse Ellipta) 1 inh inhalation DAILY Tobacco use date assessed: 05/19/23 Fall risk assessment: 2 + Falls in past year Last assessed Fall Risk: 05/19/23 Dental Screening Dental Screen Date: 05/19/23 Did you have a dental visit in the last 12 months?: No Did you have a dental problem in the last 6 months where you did not have access to dental care?: No Was dental information given to patient?: No HPI follow up ( Meds) HPI Details Patient comes in today for her follow up visit States that she missed her appointment a couple of months ago when she contracted COVID Relates that she has been experiencing some lingering weakness, malaise and brain fog and has required VNA services to help her manage her medications for the past couple of months States that she just started feeling better lately and was just discharged from VNA services a week ago States that she is presently still experiencing a lot of cough and congestion Denies any fever, headaches or dizziness Denies any chest pains No nausea / vomiting, no abdominal pain No change in bowel habits noted Would like to get a refill on her Percocet prescription for pain Has not been able to get her follow-up labs done yet - states that she will try to get them done [facility] Medical History Anxiety Benign essential hypertension Chronic allergic bronchitis Constipation Depression Elevated C-reactive protein (CRP) GERD (gastroesophageal reflux disease) Lumbar degenerative disc disease Malignant neoplasm of left kidney Obstructive sleep apnea Oral thrush Palpitations Primary osteoarthritis of knees, bilateral Pure hypercholesterolemia Renal cell carcinoma of left kidney Right foot pain Status post fall Vitamin D deficiency Surgical History History of nephrectomy Family History Father Hypertension CVD (cardiovascular disease) Cancer Mother Hypertension Substance abuse Other Mental health problem Social History Housing: House Alcohol intake: never Patient Tobacco Use Status: Former Tobacco user Quit Date: 2012 Years Smoked: 35 +/- e-Cigarette/Vaping Use: Currently Using Second Hand Smoke Exposure: Yes service: No Current occupational status: disabled Cognitive needs: No Hearing needs: No Vision needs: No Questionnaire PHQ-9 Over the last 2 weeks, how often have you been bothered by any of the following problems? 1. Little interest or pleasure in doing things: not at all 2. Feeling down, depressed, or hopeless: not at all 3. Trouble falling or staying asleep, or sleeping too much: not at all 4. Feeling tired or having little energy: not at all 5. Poor appetite or overeating: not at all 6. Feeling bad about yourself - or that you are a failure or have let yourself or your family down: not at all 7. Trouble concentrating on things, such as reading the newspaper or watching television: not at all 8. Moving or speaking so slowly that other people could have noticed. Or the opposite - being so fidgety or restless that you have been moving around a lot more than usual: not at all 9. Thoughts that you would be better off or of hurting yourself in some w ay: not at all Total score: 0 Depression Screening Interpretation: Negative 49480 - PHQ-9 Billing: Yes Source: Developed by Drs. Gary Bay, Laura Davenport, Cullen Rivera and colleagues, with an educational willy from [employer]. Thrive Questionnaire Date Thrive assessed: 05/19/23 I am a: Patient What is your living situation today?: I have a steady place to live Within the past 12 months, did the food you bought not last and you didn't have the money to get more?: Never true Within the past 12 months, did you worry whether your food would run out before you got money to buy more?: Never true Do you have trouble paying for medicines?: No Do you have trouble getting transportation to medical appointments?: No Do you have trouble paying your heating and electricity bill?: No Do you have trouble taking care of your child, family member or friend?: No Do you have trouble with day-to-day activities such as bathing, preparing meals, shopping, managing finances, etc.?: No Are you currently unemployed and looking for a job?: No Are you interested in more education?: No Please select the resources that you would like help with: None Currently or been in a relationship where the following occur: no concerns reported AUDIT C Alcohol Use Questionnaire (AUDIT-C) 1. How often do you have a drink containing alcohol?: Never 2. How many drinks containing alcohol do you have on a typical day when you are drinking?: 1 or 2 3. How often do you have six or more drinks on one occasion?: Never Total Score: 0 Score Reviewed/Action Taken: Yes MARCELLUS-7 AMB Questionnaire MARCELLUS-7 Date MARCELLUS - 7 assessed: 05/19/23 Feeling nervous, anxious, or on edge: 0 = Not at all Not being able to stop or control worryin = Not at all Worrying too much about different things: 0 = Not at all Trouble relaxin = Not at all Being so restless that it is hard to sit still: 0 = Not at all Becoming easily annoyed or irritable: 0 = Not at all Feeling afraid as if something awful might happen: 0 = Not at all Total MARCELLUS-7 score (0-4 normal; 5-9 mild; 10-14 moderate; 15-21 severe): 0 Source: Developed by Drs. Gary Bay, Laura Davenport, Cullen Rivera and colleagues, with an educational willy from [employer]. Review of Systems Const Reports difficulty sleeping, Reports fatigue, Denies fever(s) and Denies headache(s) ENT Denies dysphagia, Denies dizziness, Denies otalgia, Denies headache(s) and Denies sore throat Card Denies chest pain, Denies palpitations and Reports dyspnea on exertion Resp Reports chest congestion, Reports cough, Denies hemoptysis and Reports dyspnea on exertion GI Denies abdominal pain, Denies constipation, Denies dysphagia, Denies heartburn, Denies diarrhea, Denies nausea and Denies vomiting Denies difficulty voiding, Denies nocturia and Denies dysuria Musc Reports back pain (over the right lower back, on and off), Reports arthralgias (both knees, especially when using stairs) and Reports radiating pain into limb (right low back pain radiates down the side of the right hip and thigh) Neuro Denies dizziness, Denies headache(s) and Reports memory loss (more of a sensation of brain fog but improving lately) Psych Reports memory loss (more of a sensation of brain fog but improving lately) Endo Reports fatigue and Denies palpitations Physical exam (Primary Care) Vital Signs: Last Vital Signs Pulse 106 H 05/19/23 16:18 BP 122/60 05/19/23 16:18 Pulse Ox 94 05/19/23 16:18 Oxygen Delivery Method Room Air 05/19/23 16:18 BMI result Body Mass Index 21.3 Tobacco/Smoking Status: Tobacco use Status Tobacco use date assessed 05/19/23 05/19/23 16:20 Patient Tobacco Use Status Former Tobacco user 05/19/23 16:20 e-Cigarette/Vaping Use Currently Using 05/19/23 16:20 PHQ-9: PHQ-9 Score PHQ-9: Total score 0 05/21/23 03:42 Depression Screening Interpretation: Negative Thrive Assessment: Date of Thrive Assessment Date Thrive assessed 05/19/23 05/19/23 16:20 Currently or been in a relationship where the following occur: no concerns reported Const General: no acute distress and alert HENMT Ears: TM's normal bilaterally and EAC's normal Throat: Yes posterior oropharynx normal and Yes tonsils normal Neck Neck: Yes no lymphadenopathy and Yes supple Thyroid: Thyroid normal Resp Auscultation: rhonchi (scattered) throughout, no wheezes, diminished lung sounds (slightly ) bilateral and bronchial breath sounds Cardio Rate: regular rate Rhythm: regular rhythm Heart sounds: no murmurs GI Palpation (GI): Soft to palpation and nontender Auscultation: normal bowel sounds General: Yes no CVA tenderness Back/Spine/Pelvis Back: no CVA tenderness Cervical Spine: Cervical spine tenderness (mild) Thoracic/Lumbar Spine: lumbar spinal tenderness Skin Rashes: no rashes Extrem General: Yes no clubbing, cyanosis or edema Right lower extremity: knee Details: tenderness Left lower extremity: knee Details: tenderness Assessment and Plan Assessment & Plan (1) COPD exacerbation: Code(s): J44.1 - Chronic obstructive pulmonary disease with (acute) exacerbation Plan: Will send patient for chest x-rays for further evaluation Will start her emopirically on Levofloxacin 500 mg QD x 7 days Patient developed pneumonia when she contracted COVID-19 about two and half months ago and has been experiencing lingering fatigue and brain fog until just about 1-2 weeks ago but states that her breathing and respiratory symptoms never did completely clear up She was also referred to Neurology for further evaluation of lingering confusion and she is scheduled to be seen in August 2023 She has chronic scattered areas of bronchiectasis seen on her recent chest CT done in December 2022 Continue Incruse Ellipta 62.5 mch 1 inhalation QD, Flovent HFA 220 mcg 2 puffs BID and Ventolin HFA 2 puffs 4 times a day as needed Follow up with pulmonary as scheduled (2) Pulmonary nodules: Code(s): R91.8 - Other nonspecific abnormal finding of lung field Plan: Findings have been stable on last chest CT done in 2020 but several new pulmonary nodules, with the largest measuring 6 mm was seen on her most recent chest CT done in December 2022 - recommend follow up chest CT in 3 to 6 months Follow up with pulmonary as scheduled (3) Pure hypercholesterolemia: Code(s): E78.00 - Pure hypercholesterolemia, unspecified Plan: Has not had her fasting lipids rechecked in a while - will have her try to get her labs done MERRY Reinforced low cholesterol diet Continue Atorvastatin 10 mg QD Will have her recheck her labs and fasting lipids again in 4 months for follow- up (4) Benign essential hypertension: Code(s): I10 - Essential (primary) hypertension Plan: Reinforced low sodium diet - goal is systolic BP of at least 130 mm or less Continue Nifedipine ER 30 mg QD and HCTZ 25mg QD Patient is reminded to continue monitoring her BP regularly (5) Obstructive sleep apnea: Code(s): G47.33 - Obstructive sleep apnea (adult) (pediatric) Plan: Continue using CPAP device daily when sleeping at night (6) Renal cell carcinoma of left kidney: Comment: S/P left nephrectomy by Dr. Mendoza on 02/18/2020 Code(s): C64.2 - Malignant neoplasm of left kidney, except renal pelvis Plan: S/P left nephrectomy in 01/2020 Repeat abdominal/pelvic CT done in 11/2020 was negative for recurrence of malignancy although there is a new peritoneal nodule under the left hemidiaphragm seen incidentally on her chest CT in December 2022 - follow-up abd ominal and pelvic CT are recommended. Follow up with urology as scheduled for continuing surveillance (7) Lumbar degenerative disc disease: Code(s): M51.36 - Other intervertebral disc degeneration, lumbar region Plan: Reinforced activity and weight-lifting restrictions Continue Gabapentin 400 mg TID Continue Oxycodone-Acetaminophen 5-325 mg Q 8 hours PRN - Rx refilled (8) Lumbar back pain with radiculopathy affecting right lower extremity: Code(s): M54.16 - Radiculopathy, lumbar region Plan: Repeat x-rays of the lumbar spine back in November 2021 revealed (+) mild scoliosis, with multilevel degenerative changes; x-rays of the SI joints were normal Right hip x-rays revealed (+) mild degenerative changes (9) Primary osteoarthritis of knees, bilateral: Code(s): M17.0 - Bilateral primary osteoarthritis of knee Plan: Bilateral knee x-rays last done in November 2021 showed (+) OA changes in both knees, with trace effusion noted in the right knee Will consider referring to orthopedics if her symptoms persist or get worse (10) GERD (gastroesophageal reflux disease): Code(s): K21.9 - Gastro-esophageal reflux disease without esophagitis Qualifiers: Esophagitis presence: without esophagitis Qualified Code(s): K21.9 - Gastro-esophageal reflux disease without esophagitis Plan: Dietary restrictions reinforced Continue Dexilant 60 mg QD and Famotidine 40 mg QD (11) Vitamin D deficiency: Code(s): E55.9 - Vitamin D deficiency, unspecified Plan: Continue Vitamin D3 2000 units QD (12) Anxiety: Code(s): F41.9 - Anxiety disorder, unspecified Plan: Continue Clonazepam 0.5 mg TID PRN (13) Depression: Code(s): F32.A - Depression, unspecified Qualifiers: Active/Remission status: currently active Depression Type: major depressive disorder Major depression episode severity: unspecified Major depression recurrence: recurrent Qualified Code(s): F33.9 - Major depressive disorder, recurrent, unspecified Plan: Continue Bupropion XL 150 mg QD and Amitriptyline 75 mg Q HS Plan Follow up in 4 months Orders: Orders XR chest 2V 05/20/23 J18.9 - Pneumonia, unspecified organism Comprehensive Daisy. Panel Fast 05/20/23 E78.00 - Pure hypercholesterolemia, unspecified Lipid Panel 05/20/23 E78.00 - Pure hypercholesterolemia, unspecified TSH reflex Free T4 05/20/23 E78.00 - Pure hypercholesterolemia, unspecified Vitamin D 25-OH Total 05/20/23 E55.9 - Vitamin D deficiency, unspecified Complete Blood Count Auto Diff 05/20/23 I10 - Essential (primary) hypertension UA CC w/rflx Micro + Cult 05/20/23 R30.0 - Dysuria Medications: New levofloxacin 500 mg PO DAILY 7 days 7 tabs 0RF Refilled oxycodone-acetaminophen 5-325 mg 1 tab PO Q8H 7 days PRN 21 tabs 0RF low back pain M51.36 - Other intervertebral disc degeneration, lumbar region Coding Level of Care Code Est Pt Level 4 (09412) Diagnoses COPD exacerbation J44.1 Pulmonary nodules R91.8 Pure hypercholesterolemia E78.00 Benign essential hypertension I10 Obstructive sleep apnea G47.33 Renal cell carcinoma of left kidney C64.2 Lumbar degenerative disc disease M51.36 Lumbar back pain with radiculopathy affecting right lower extremity M54.16 Primary osteoarthritis of knees, bilateral M17.0 GERD (gastroesophageal reflux disease) K21.9 Esophagitis presence: without esophagitis Vitamin D deficiency E55.9 Anxiety F41.9 Depression F33.9 Active/Remission status: currently active Depression Type: major depressive disorder Major depression episode severity: unspecified Major depression recurrence: recurrent
== END 2023-05-19 17:14 | disposition home or self-care (01) ==
PROVIDERS: PCP Internal Medicine; Visit Provider Internal Medicine
DX: I10 Essential (primary) hypertension (principal); K21.9 Gastro-esophageal reflux disease without esophagitis; E55.9 Vitamin D deficiency, unspecified; F41.9 Anxiety disorder, unspecified; F33.9 Major depressive disorder, recurrent, unspecified; C64.2 Malignant neoplasm of left kidney, except renal pelvis; J44.1 Chronic obstructive pulmonary disease with (acute) exacerbation; R91.8 Other nonspecific abnormal finding of lung field; E78.00 Pure hypercholesterolemia, unspecified; G47.33 Obstructive sleep apnea (adult) (pediatric); M51.36 Other intervertebral disc degeneration, lumbar region; M54.16 Radiculopathy, lumbar region
CPT/HCPCS: 99214

== ENCOUNTER 2023-05-20 07:57 | Outpatient (REF) | payer OTHER, SELFPAY ==
--- NOTE | ~2023-05-20 | XR_ITS ---
EXAMINATION: XR CHEST CLINICAL INFORMATION: Pneumonia COMPARISON: Chest 04/18/2023 TECHNIQUE: 2 views of the chest were obtained. FINDINGS: The lungs are hyperinflated but clear of acute pneumonic process. Mild prominence of fine interstitial markings is noted no pleural effusion or thickening. The heart size and progress clarities normal. No gross bony abnormality. XR/XR chest 2V IMPRESSION: Prominent bilateral interstitial markings likely chronic changes. No acute pneumonic process.
[2023-05-20 08:19] LABS: MANUAL DIFF FLAG NO
[2023-05-20 09:03] LABS: Basophils Absolute Auto 0.1 X10*3/uL (0.0-0.2); Basophils Percent Auto 0.6 % (0-2); Eosinophils Absolute Auto 0.5 X10*3/uL (0.0-0.4); Eosinophils Percent Auto 4.8 % (0-4); Hematocrit 37.6 % (37.0-47.0); Hemoglobin 12.5 g/dl (12.0-16.0); Imm Gran Abs Auto 0.03 X10*3/uL (0.00-0.03); Imm Gran Pct Auto 0.3 % (0.0-0.4); Lymphocytes Absolute Auto 0.9 X10*3/uL (1.2-4.9); Mean Corpuscular HGB Conc 33.2 g/dl (31.0-35.0); Mean Corpuscular Hemoglobin 28.5 pg (27.0-33.0); Mean Corpuscular Volume 85.8 fL (80.0-98.0); Mean Platelet Volume 8.9 fL (9.4-12.3); Monocytes Absolute Auto 0.9 X10*3/uL (0.1-1.2); Monocytes Percent Auto 9.1 % (2-11); Neutrophils Absolute Auto 7.7 x10*3/uL (2.0-8.3); Neutrophils Percent Auto 76.2 % (45-73); Platelet Count 363 X10*3/uL (160-400); Red Blood Count 4.38 X10*6/uL (4.20-5.50); Red Cell Distribution Width 14.7 % (11.0-16.0); White Blood Count 10.1 X10*3/uL (4.8-10.8)
[2023-05-20 09:38] LABS: Alanine Aminotransferase 9 U/L (0-31); Albumin Level 3.6 g/dL (3.5-5.0); Alkaline Phosphatase 100 U/L (39-117); Anion Gap 12 (12-20); Aspartate Amino Transferase 23 U/L (5-31); Bilirubin Total 0.6 mg/dL (0.0-1.0); Blood Urea Nitrogen 9 mg/dL (9-16); Calcium 9.2 mg/dL (8.4-10.2); Carbon Dioxide 33 mmol/L (22-29); Chloride 92 mmol/L (96-108); Cholesterol 141 mg/dL; Estimated Glomerular Filt Rate > 60; Glucose Fasting 91 mg/dL (60-99); HDL Cholesterol 44 mg/dL; LDL Cholesterol Calculated 80 mg/dl; Potassium 3.2 mmol/L (3.3-5.1); Sodium 134 mmol/L (135-145); Total Protein 7.4 g/dL (6.5-8.0); Triglycerides 89 mg/dL
[2023-05-20 09:56] LABS: TSH reflex Free T4 3.86 uIU/mL (0.32-4.0); Vitamin D 25-OH Total 31.1 ng/mL (>30)
== END 2023-05-20 07:58 | disposition home or self-care (01) ==
LOC: HO.LAB 07:57
PROVIDERS: PCP Internal Medicine; Visit Provider Internal Medicine
DX: J18.9 Pneumonia, unspecified organism (principal); R30.0 Dysuria; E78.00 Pure hypercholesterolemia, unspecified; I10 Essential (primary) hypertension; E55.9 Vitamin D deficiency, unspecified
CPT/HCPCS: 36415; 71046; 80053; 80061; 82306; 84443; 85025

== ENCOUNTER 2023-06-28 16:04 | Outpatient (REF) | payer OTHER, SELFPAY ==
[2023-06-28 17:05] LABS: Appearance Urine Turbid; Color Urine Yellow; Glucose Urine UA Negative (Negative); Leukocyte Esterase Urine Large (3+) (Negative); Nitrite Urine Positive (Negative); PH 6.5 (5.0-9.0); Specific Gravity - Urine <= 1.005 (1.005-1.025); UMIC TRIGGER UACC YES; Urine Blood Trace (Negative); Urine Ketones Negative (Negative); Urine Protein Negative (Neg-Trace)
[2023-06-28 17:08] LABS: Bacteria Urine 4+ (None Seen); Hyaline Casts Urine 0-2 /LPF (0-2); RBC Urine 0-2 /HPF (0-2); Squamous Epithelial Cell Urine 0-2 /HPF (0-2); UACC Culture Trigger YES; WBC Urine >50 /HPF (0-5)
== END 2023-06-28 16:05 | disposition home or self-care (01) ==
LOC: HO.LAB 16:04
PROVIDERS: PCP Internal Medicine; Visit Provider Internal Medicine
DX: R39.9 Unspecified symptoms and signs involving the genitourinary system (principal)
CPT/HCPCS: 81001; 81003; 87086; 87088; 87186

== ENCOUNTER 2023-07-25 13:17 | Outpatient (AMB) | payer OTHER, SELFPAY ==
[2023-07-25 13:28] VITALS: BP 122/64; PULSE 107; O2SAT 97; BMI 21.2
--- NOTE | 2023-07-25 13:28 | MHC.OFFVIS ---
Intake Vital Signs 07/25/23 13:28 Height 5 ft 4 in Weight 123 lb 7.342 oz BMI 21.2 BP 122/64 Blood Pressure Location Lt brachial Position Sitting Pulse 107 H Pulse Source Doppler Pulse Oximetry (%) 97 Oxygen Delivery Method Room Air Intake Visit Reasons: COPD Allergies Sulfa (Sulfonamide Antibiotics) Allergy (Severe, Verified 07/25/23 13:33) ANAPHYLAXIS Penicillins Allergy (Mild, Verified 07/25/23 13:33) RASH aspirin [ASA] Allergy (Unknown, Verified 07/25/23 13:33) UNKNOWN, stomach upset codeine [Codeine] Allergy (Unknown, Verified 07/25/23 13:33) NAUSEA & VOMITING diphenhydramine [Advil PM] Allergy (Unknown, Verified 07/25/23 13:33) Unknown ibuprofen [From ADVIL] Allergy (Unknown, Verified 07/25/23 13:33) UNKNOWN HPI COPD HPI Details 68-year-old lady, former 30+ pack-year smoker, quit 2011 now uses vaping devices followed for bronchiectasis, abnormal chest imaging, and emphysema.? Her symptoms baseline are well controlled on Incruse, Flovent, and duo nebs.? After the last office visit patient had several lesions including UTI cord, and pneumonia. She has not completed her follow-up CT chest or pulmonary function testing. Now she complains of a bronchitic exacerbation. [facility] Medical History Anxiety Benign essential hypertension Chronic allergic bronchitis Constipation Depression Elevated C-reactive protein (CRP) GERD (gastroesophageal reflux disease) Lumbar degenerative disc disease Malignant neoplasm of left kidney Obstructive sleep apnea Oral thrush Palpitations Primary osteoarthritis of knees, bilateral Pure hypercholesterolemia Renal cell carcinoma of left kidney Right foot pain Status post fall Vitamin D deficiency Surgical History History of nephrectomy Family History Father Hypertension CVD (cardiovascular disease) Cancer Mother Hypertension Substance abuse Other Mental health problem Social History (Updated 07/25/23 @ 13:35 by LIBBY Llamas) Housing: House Alcohol intake: never Patient Tobacco Use Status: Former Tobacco user Quit Date: 2011 Tobacco use type: Cigarette Cigarette Packs Per Day: 1.5 Years Smoked: 35 +/- e-Cigarette/Vaping Use: Currently Using Second Hand Smoke Exposure: Yes service: No Current occupational status: disabled Cognitive needs: No Hearing needs: No Vision needs: No Review of Systems Const Denies daytime sleepiness, Denies excessive sweating, Denies fatigue, Denies fever(s), Denies lethargy, Denies malaise, Denies night sweats, Denies snoring and Denies weight loss Eyes Denies blurry vision and Denies itchy eyes ENT Denies nasal congestion, Denies post nasal drip, Denies sinus pain, Denies sinus pressure and Denies other ( Thrush) Card Denies chest pain, Denies pedal edema, Denies dyspnea, Reports dyspnea on exertion, Denies orthopnea and Denies paroxysmal nocturnal dyspnea Resp Reports cough, Denies hemoptysis, Reports excessive phlegm production, Denies dyspnea, Reports dyspnea on exertion, Denies snoring and Denies wheezing GI Denies abdominal pain and Denies heartburn Musc Denies myalgias, Denies arthralgias and Denies joint swelling Skin/Breast Denies rash Neuro Denies memory loss and Denies seizure-like activity Psych Denies abnormal sleep pattern, Denies anxiety and Denies memory loss Endo Denies excessive sweating, Denies fatigue and Denies heat intolerance Ronal/Lymph Denies easy bruising Aller/Immun Denies itchy eyes, Denies seasonal rhinorrhea and Denies wheezing Physical Exam Vital Signs: Last Vital Signs Pulse 107 H 07/25/23 13:28 BP 122/64 07/25/23 13:28 Pulse Ox 97 07/25/23 13:28 Oxygen Delivery Method Room Air 07/25/23 13:28 BMI result Body Mass Index 21.2 Const General: no acute distress and alert Nutritional Appearance: not obese Orientation/consciousness: Other orientation findings ( oriented) HEENT Head: Yes atraumatic Eyes General: appearance normal, both eyes and all related structures Sclerae: sclerae normal EOM: EOMs intact bilaterally Neck Neck: Yes supple Lymphatic: no lymphadenopathy noted Resp Effort & Inspection: normal respiratory effort and no use of accessory muscles Auscultation: clear to auscultation bilaterally Cardio Rate: regular rate Rhythm: regular rhythm Heart sounds: no gallops, no murmurs and no rubs Skin General skin exam: other ( warm) Extrem General: No clubbing, No cyanosis and No edema Assessment & Plan Assessment & Plan (1) COPD (chronic obstructive pulmonary disease): Code(s): J44.9 - Chronic obstructive pulmonary disease, unspecified Qualifiers: COPD type: unspecified COPD Qualified Code(s): J44.9 - Chronic obstructive pulmonary disease, unspecified Plan: Baseline controlled on Flovent, Incruse, duo nebs, and albuterol MDI. Continue current regimen. (2) GERD (gastroesophageal reflux disease): Code(s): K21.9 - Gastro-esophageal reflux disease without esophagitis Qualifiers: Esophagitis presence: without esophagitis Qualified Code(s): K21.9 - Gastro-esophageal reflux disease without esophagitis Plan: Patient has not started famotidine. Start famotidine. Continue Dexilant. (3) Pulmonary nodules: Code(s): R91.8 - Other nonspecific abnormal finding of lung field Plan: Follow-up CT chest is pending. (4) Bronchiectasis: Code(s): J47.9 - Bronchiectasis, uncomplicated Plan: Now with exacerbation. Recently treated with a course of Levaquin with suboptimal response. Will treat with a course of doxycycline, if not improving will obtain sputum culture. Medications: New doxycycline monohydrate 100 mg PO BID 20 caps 0RF Refilled ipratropium-albuterol 0.5 mg-3 mg(2.5 mg base)/3 mL 3 mL inhalation Q6H PRN 180 mL 6RF shortness of breath or wheezing 30 days R05 - Cough Discontinued levofloxacin Discontinued Reason: Doctor's Order 500 mg PO DAILY 7 days 7 tabs 0RF Coding Level of Care Code Est Pt Level 4 (98148) Diagnoses Chronic obstructive pulmonary disease, unspecified COPD type J44.9 COPD type: unspecified COPD Gastroesophageal reflux disease without esophagitis K21.9 Esophagitis presence: without esophagitis Pulmonary nodules R91.8 Bronchiectasis J47.9
== END 2023-07-25 13:55 | disposition home or self-care (01) ==
PROVIDERS: PCP Internal Medicine; Visit Provider Internal Medicine Pulmonary Disease
DX: J44.9 Chronic obstructive pulmonary disease, unspecified (principal); K21.9 Gastro-esophageal reflux disease without esophagitis; R91.8 Other nonspecific abnormal finding of lung field
CPT/HCPCS: 99214

== ENCOUNTER → 2023-07-25 13:17 | Outpatient (BNVA) | payer OTHER, SELFPAY | PROVIDERS: Visit Provider Internal Medicine Pulmonary Disease | DX: J44.9 Chronic obstructive pulmonary disease, unspecified (principal); J47.9 Bronchiectasis, uncomplicated; K21.9 Gastro-esophageal reflux disease without esophagitis; R91.8 Other nonspecific abnormal finding of lung field | CPT/HCPCS: 99212 ==

== ENCOUNTER 2023-08-22 16:29 | Outpatient (REF) | payer OTHER, SELFPAY ==
--- NOTE | ~2023-08-22 | CT_ITS ---
EXAMINATION: CT CHEST WITHOUT CONTRAST CLINICAL INFORMATION: Prominent interstitial markings and bronchiectasis. Several pulmonary nodules with the largest measured [address] scan from December 2022 COMPARISON: 01/27/2023 TECHNIQUE: Multidetector volumetric CT imaging of the chest was done. Axial MIP volume rendering provided. Sagittal and coronal reformatted images were obtained. This CT examination was performed using dose optimization techniques as appropriate, variously including the following: *Automated exposure control *Adjustment of mA and/or kV according to patient size (this includes techniques or standardized protocols for targeted exams where dose is matched to indication/reason for exam; i.e. extremities or head) *Use of iterative reconstruction technique DLP: 112 mGy-cm FINDINGS: NURSE INFORMATICS EDUCATOR: Unremarkable LUNGS: There are changes of centrilobular emphysema, groundglass mosaic attenuation bilaterally and multiple lung nodules seen bilaterally such as nodules on the left: Left lower lobe medially located nodule measured 1.6 cm seen on image 282 series 5, subpleural left upper lobe 0.3 cm nodule seen on image 311, subpleural 0.7 cm nodule seen in the left lower lobe on image 397, 0.8 cm nodule seen in the left lower lobe on image 451, groundglass opacity 0.4 cm nodule seen on image 401 cm: On the right there are nodules seen in the right upper lobe on image 111 measured between 0.2-0.5 cm, another groundglass opacity seen in the right upper lobe measured 0.3 cm on image 151, right middle lobe nodule adjacent to the pericardium measured 0.9 cm on image 317 there is scarring/atelectasis seen in the right middle lobe adjacent to the fissure, MEDIASTINUM: Coronary artery calcifications present. There is no mediastinal or hilar lymphadenopathy seen on noncontrast CT scan. There is no pericardial effusion. Aorta is not dilated. Anterior mediastinum and revealed more prominent scarring than before PLEURA: There is no pleural effusion. No pleural mass or thickening. AXILLA: No lymphadenopathy. UPPER ABDOMEN: Unremarkable. OSSEOUS STRUCTURES: Unremarkable. CT/CT chest wo IV con IMPRESSION: 1. Changes of centrilobular emphysema and multiple lung nodules bilaterally. 2. Scarring in the anterior mediastinum. 3. Coronary artery calcifications. Fleischner guidelines were followed.
== END 2023-08-22 16:30 | disposition home or self-care (01) ==
LOC: HO.CT 16:29
PROVIDERS: PCP Internal Medicine; Visit Provider Internal Medicine Pulmonary Disease
DX: R91.8 Other nonspecific abnormal finding of lung field (principal)
CPT/HCPCS: 71250

== ENCOUNTER 2023-08-23 12:30 | Outpatient (AMB) | payer OTHER, SELFPAY ==
[2023-08-23 12:35] VITALS: BP 126/80; PULSE 89; O2SAT 99; BMI 20.9
--- NOTE | 2023-08-23 12:35 | A.OFFPC_ITS ---
Vital Signs 08/23/23 12:35 Height 5 ft 4 in Weight 122 lb BMI 20.9 BP 126/80 Blood Pressure Location Lt brachial Position Sitting Pulse 89 Pulse Source Pulse Oximeter Pulse Oximetry (%) 99 Oxygen Delivery Method Room Air Intake Visit Reasons: 4 month f/u Vice President Financial Required: No Accompanied by: Self / Same As Patient Allergies Sulfa (Sulfonamide Antibiotics) Allergy (Severe, Verified 08/23/23 12:55) ANAPHYLAXIS Penicillins Allergy (Mild, Verified 08/23/23 12:55) RASH aspirin [ASA] Allergy (Unknown, Verified 08/23/23 12:55) UNKNOWN, stomach upset codeine [Codeine] Allergy (Unknown, Verified 08/23/23 12:55) NAUSEA & VOMITING diphenhydramine [Advil PM] Allergy (Unknown, Verified 08/23/23 12:55) Unknown ibuprofen [From ADVIL] Allergy (Unknown, Verified 08/23/23 12:55) UNKNOWN Medication List - Last Reconciled 08/23/23 by Dominic Lin MD albuterol sulfate 90 mcg/actuation 2 puffs inhalation QID PRN amitriptyline 75 mg PO DAILY atorvastatin 10 mg PO DAILY betamethasone dipropionate 0.05% 1 appl topical BID PRN bupropion HCl 150 mg PO QAM 90 days cholecalciferol (vitamin D3) 50 mcg PO DAILY 90 days clonazepam 0.5 mg PO TID PRN 30 days cyclosporine 0.05% 1 drp ophthalmic (eye) BID dexlansoprazole (Dexilant) 60 mg PO DAILY 30 days doxycycline monohydrate 100 mg PO BID famotidine 40 mg PO DAILY fluticasone propionate 220 mcg/actuation (Flovent HFA) 2 puffs PO BID gabapentin 400 mg PO TID 90 days hydrochlorothiazide 25 mg PO DAILY ipratropium-albuterol 0.5 mg-3 mg(2.5 mg base)/3 mL 3 mL inhalation Q6H PRN 30 days miscellaneous medical supply 1 ea miscellaneous Nebulizer Machine DIRECTED mometasone 0.1% apply to affected areas topical 2 times a day PRN; 30 days nifedipine ER 30 mg PO DAILY nystatin 10 mL buccal TID 10 days oxycodone-acetaminophen 5-325 mg 1 tab PO Q8H PRN 7 days polyethylene glycol 3350 17 grams PO DAILY sennosides (senna) 8.6 mg PO BEDTIME PRN umeclidinium 62.5 mcg/actuation (Incruse Ellipta) 1 inh inhalation DAILY Tobacco use date assessed: 08/23/23 Fall risk assessment: 2 + Falls in past year Last assessed Fall Risk: 08/23/23 Dental Screening Dental Screen Date: 08/23/23 Did you have a dental visit in the last 12 months?: No Did you have a dental problem in the last 6 months where you did not have access to dental care?: No Was dental information given to patient?: No HPI 4 month f/u HPI Details Patient comes in today for her follow up visit States that she continues to experience recurrent SOB and chest tightness and recurrent coughing, which she states seem to get worse at night She was seen by pulmonary last month and sent for chest CT and PFTs for further evaluation - bronchiectasis was suspected She just had her chest CT done yesterday and is scheduled for PFTs next week States that she often coughs up thick scanty whitish phlegm She denies any fever, headaches or dizziness Denies any chest pains, no increased SOB No nausea/vomiting, no abdominal pain No change in bowel habits noted States that her previous sensation of brain fog (which started when she tested positive for COVID several months ago) has improved a lot lately She still has increased pain over her right lower back that she states is mostly unchanged from before Needs a couple of her Rx refilled, including her pain medication Would like to go over the results of her labs done a couple of months ago FORMERLY [facility], [facility] Medical History Malignant neoplasm of left kidney Vitamin D deficiency Depression Primary osteoarthritis of knees, bilateral Pure hypercholesterolemia Elevated C-reactive protein (CRP) Palpitations Constipation Obstructive sleep apnea Anxiety Benign essential hypertension Renal cell carcinoma of left kidney Oral thrush Lumbar degenerative disc disease Status post fall Right foot pain Chronic allergic bronchitis GERD (gastroesophageal reflux disease) Surgical History History of nephrectomy Family History Father Hypertension CVD (cardiovascular disease) Cancer Mother Hypertension Substance abuse Other Mental health problem Housing: House Alcohol intake: never Patient Tobacco Use Status: Former Tobacco user Quit Date: 2011 Tobacco use type: Cigarette Cigarette Packs Per Day: 1.5 Years Smoked: 35 +/- e-Cigarette/Vaping Use: Currently Using Second Hand Smoke Exposure: Yes service: No Current occupational status: disabled Cognitive needs: No Hearing needs: No Vision needs: No Questionnaire PHQ-9 Over the last 2 weeks, how often have you been bothered by any of the following problems? 1. Little interest or pleasure in doing things: not at all 2. Feeling down, depressed, or hopeless: not at all 3. Trouble falling or staying asleep, or sleeping too much: not at all 4. Feeling tired or having little energy: not at all 5. Poor appetite or overeating: not at all 6. Feeling bad about yourself - or that you are a failure or have let yourself or your family down: not at all 7. Trouble concentrating on things, such as reading the newspaper or watching television: not at all 8. Moving or speaking so slowly that other people could have noticed. Or the opposite - being so fidgety or restless that you have been moving around a lot more than usual: not at all 9. Thoughts that you would be better off or of hurting yourself in some way: not at all Total score: 0 Depression Screening Interpretation: Negative Depression Screening Done: Yes 43303 - PHQ-9 Billing: Yes Source: Developed by Drs. Gary Bay, Laura Davenport, Cullen Rivera and colleagues, with an educational willy from [employer]. Thrive Questionnaire Date Thrive assessed: 08/23/23 I am a: Patient What is your living situation today?: I have a steady place to live Within the past 12 months, did the food you bought not last and you didn't have the money to get more?: Never true Within the past 12 months, did you worry whether your food would run out before you got money to buy more?: Never true Do you have trouble paying for medicines?: No Do you have trouble getting transportation to medical appointments?: No Do you have trouble paying your heating and electricity bill?: No Do you have trouble taking care of your child, family member or friend?: No Do you have trouble with day-to-day activities such as bathing, preparing meals, shopping, managing finances, etc.?: No Are you currently unemployed and looking for a job?: No Are you interested in more education?: No Please select the resources that you would like help with: None Currently or been in a relationship where the following occur: no concerns reported AUDIT C Alcohol Use Questionnaire (AUDIT-C) 1. How often do you have a drink containing alcohol?: Never 2. How many drinks containing alcohol do you have on a typical day when you are drinking?: 1 or 2 3. How often do you have six or more drinks on one occasion?: Never Total Score: 0 Score Reviewed/Action Taken: Yes MARCELLUS-7 AMB Questionnaire MARCELLUS-7 Date MARCELLUS - 7 assessed: 08/23/23 Feeling nervous, anxious, or on edge: 0 = Not at all Not being able to stop or control worryin = Not at all Worrying too much about different things: 0 = Not at all Trouble relaxin = Not at all Being so restless that it is hard to sit still: 0 = Not at all Becoming easily annoyed or irritable: 0 = Not at all Feeling afraid as if something awful might happen: 0 = Not at all Total MARCELLUS-7 score (0-4 normal; 5-9 mild; 10-14 moderate; 15-21 severe): 0 Source: Developed by Drs. Gary Bay, Laura Davenport, Cullen Rivera and colleagues, with an educational willy from [employer]. Review of Systems Const Reports difficulty sleeping, Reports fatigue, Denies fever(s) and Denies headache(s) ENT Denies dysphagia, Denies dizziness, Denies otalgia, Denies headache(s), Denies odynophagia and Denies sore throat Card Denies chest pain, Denies palpitations and Reports dyspnea on exertion Resp Reports chest congestion (recurrent - chest feels tight on and off), Reports cou gh (on and off), Denies hemoptysis, Reports dyspnea on exertion and Denies wheezing GI Denies abdominal pain, Denies constipation, Denies dysphagia, Denies heartburn, Denies diarrhea, Denies nausea, Denies odynophagia and Denies vomiting Denies difficulty voiding, Denies nocturia and Denies dysuria Musc Reports back pain (over the right lower back, on and off), Reports arthralgias (both knees, especially when using stairs) and Reports radiating pain into limb (right low back pain radiates down the side of the right hip and thigh) Skin/Breast Denies rash Neuro Denies dizziness, Denies headache(s) and Reports memory loss (more of a sensation of brain fog but improving lately) Psych Reports memory loss (more of a sensation of brain fog but improving lately) Endo Reports fatigue and Denies palpitations Aller/Immun Denies wheezing Physical exam (Primary Care) Vital Signs: Last Vital Signs Pulse 89 08/23/23 12:35 BP 126/80 08/23/23 12:35 Pulse Ox 99 08/23/23 12:35 Oxygen Delivery Method Room Air 08/23/23 12:35 BMI result Body Mass Index 20.9 Tobacco/Smoking Status: Tobacco use Status Tobacco use date assessed 08/23/23 08/23/23 12:45 Patient Tobacco Use Status Former Tobacco user 08/23/23 12:45 Tobacco use type Cigarette 08/23/23 12:45 e-Cigarette/Vaping Use Currently Using 08/23/23 12:45 PHQ-9: PHQ-9 Score PHQ-9: Total score 0 08/23/23 12:45 Depression Screening Interpretation: Negative Thrive Assessment: Date of Thrive Assessment Date Thrive assessed 08/23/23 08/23/23 12:45 Currently or been in a relationship where the following occur: no concerns reported Const General: no acute distress and alert HENMT Ears: TM's normal bilaterally and EAC's normal Throat: Yes posterior oropharynx normal and Yes tonsils normal Neck Neck: Yes no lymphadenopathy and Yes supple Thyroid: Thyroid normal Resp Auscultation: rhonchi (scattered) throughout, no wheezes, diminished lung sounds (slightly ) bilateral and bronchial breath sounds Cardio Rate: regular rate Rhythm: regular rhythm Heart sounds: no murmurs GI Palpation (GI): Soft to palpation and nontender Auscultation: normal bowel sounds General: Yes no CVA tenderness Back/Spine/Pelvis Back: no CVA tenderness Cervical Spine: Cervical spine tenderness (mild) Thoracic/Lumbar Spine: lumbar spinal tenderness Skin Rashes: no rashes Extrem General: Yes no clubbing, cyanosis or edema Right lower extremity: knee Details: tenderness Left lower extremity: knee Details: tenderness Results Reviewed Results Reviewed: Laboratory Tests 03/22/23 04/13/23 04/13/23 09:16 14:43 14:43 WBC 7.7 Hgb 11.9 L Hct 37.6 Plt Count 406 H Sodium 139 Potassium Creatinine Estimated GFR Fasting Glucose Calcium AST ALT Triglycerides Cholesterol LDL Cholesterol, Calc HDL Cholesterol 25-OH Vitamin D Total TSH Ur Specific [place] Urine Protein Urine Glucose (UA) Urine Blood 05/20/23 05/20/23 05/20/23 08:18 08:18 08:18 WBC 10.1 Hgb 12.5 Hct 37.6 Plt Count 363 Sodium 134 L Potassium 3.2 L Creatinine 0.77 Estimated GFR > 60 Fasting Glucose 91 Calcium 9.2 D AST 23 ALT 9 Triglycerides 89 Cholesterol 141 LDL Cholesterol, Calc 80 HDL Cholesterol 44 25-OH Vitamin D Total 31.1 TSH 3.86 Ur Specific [place] Urine Protein Urine Glucose (UA) Urine Blood 06/28/23 06/28/23 16:20 16:20 WBC Hgb Hct Plt Count Sodium Potassium Creatinine Estimated GFR Fasting Glucose Calcium AST ALT Triglycerides Cholesterol LDL Cholesterol, Calc HDL Cholesterol 25-OH Vitamin D Total TSH Ur Specific [place] <= 1.005 Urine Protein Negative Urine Glucose (UA) Negative Urine Blood Trace H Assessment and Plan Assessment & Plan (1) COPD (chronic obstructive pulmonary disease): Code(s): J44.9 - Chronic obstructive pulmonary disease, unspecified Qualifiers: COPD type: unspecified COPD Qualified Code(s): J44.9 - Chronic obstructive pulmonary disease, unspecified Plan: Pulmonary suspects that she has chronic bronchiectasis Chest CT done in December 2022 revealed (+) chronic scattered areas of bronciect asis She just had a chest CT done yesterday (report pending) and is scheduled for PFTs next month Continue Incruse Ellipta 62.5 mch 1 inhalation QD, Flovent HFA 220 mcg 2 puffs BID and Ventolin HFA 2 puffs 4 times a day as needed Follow up with pulmonary as scheduled (2) Pulmonary nodules: Code(s): R91.8 - Other nonspecific abnormal finding of lung field Plan: Findings have been stable on last chest CT done in 2020 but several new pulmonary nodules, with the largest measuring 6 mm was seen on her most recent chest CT done in December 2022 - recommend follow up chest CT in 3 to 6 months She just had chest CT done yesterday - report pending Follow up with pulmonary as scheduled (3) Pure hypercholesterolemia: Code(s): E78.00 - Pure hypercholesterolemia, unspecified Plan: Results of her labs done a couple of months ago reviewed and discussed with patient Reinforced low cholesterol diet Continue Atorvastatin 10 mg QD Will have her recheck her labs and fasting lipids again in 4 months for follow- up (4) Benign essential hypertension: Code(s): I10 - Essential (primary) hypertension Plan: Reinforced low sodium diet - goal is systolic BP of at least 130 mm or less Continue Nifedipine ER 30 mg QD and HCTZ 25mg QD Patient is reminded to continue monitoring her BP regularly (5) Obstructive sleep apnea: Code(s): G47.33 - Obstructive sleep apnea (adult) (pediatric) Plan: Continue using CPAP device daily when sleeping at night (6) Renal cell carcinoma of left kidney: Comment: S/P left nephrectomy by Dr. Mendoza on 02/18/2020 Code(s): C64.2 - Malignant neoplasm of left kidney, except renal pelvis Plan: S/P left nephrectomy in 01/2020 Repeat abdominal/pelvic CT done in 11/2020 was negative for recurrence of malignancy although there is a new peritoneal nodule under the left hemidiaphragm seen incidentally on her chest CT in December 2022 - follow-up abdominal and pelvic CT are recommended. Follow up with urology as scheduled for continuing surveillance (7) Lumbar degenerative disc disease: Code(s): M51.36 - Other intervertebral disc degeneration, lumbar region Plan: Reinforced activity and weight-lifting restrictions Continue Gabapentin 400 mg TID Continue Oxycodone-Acetaminophen 5-325 mg Q 8 hours PRN - Rx refilled (8) Lumbar back pain with radiculopathy affecting right lower extremity: Code(s): M54.16 - Radiculopathy, lumbar region Plan: Repeat x-rays of the lumbar spine back in November 2021 revealed (+) mild scoliosis, with multilevel degenerative changes; x-rays of the SI joints were normal Right hip x-rays revealed (+) mild degenerative changes (9) Primary osteoarthritis of knees, bilateral: Code(s): M17.0 - Bilateral primary osteoarthritis of knee Plan: Bilateral knee x-rays last done in November 2021 showed (+) OA changes in both knees, with trace effusion noted in the right knee Will consider referring to orthopedics if her symptoms persist or get worse (10) GERD (gastroesophageal reflux disease): Code(s): K21.9 - Gastro-esophageal reflux disease without esophagitis Qualifiers: Esophagitis presence: without esophagitis Qualified Code(s): K21.9 - Gastro-esophageal reflux disease without esophagitis Plan: Dietary restrictions reinforced Continue Dexilant 60 mg QD and Famotidine 40 mg QD (11) Vitamin D deficiency: Code(s): E55.9 - Vitamin D deficiency, unspecified Plan: Continue Vitamin D3 2000 units QD (12) Anxiety: Code(s): F41.9 - Anxiety disorder, unspecified Plan: Continue Clonazepam 0.5 mg TID PRN (13) Depression: Code(s): F32.A - Depression, unspecified Qualifiers: Depression Type: major depressive disorder Major depression recurrence: recurrent Active/Remission status: currently active Major depression episode severity: unspecified Qualified Code(s): F33.9 - Major depressive disorder, recurrent, unspecified Plan: Continue Bupropion XL 150 mg QD and Amitriptyline 75 mg Q HS Plan Follow up in 4 months Orders: Orders Complete Blood Count Auto Diff 4 Months I10 - Essential (primary) hypertension Lipid Panel 4 Months E78.00 - Pure hypercholesterolemia, unspecified TSH reflex Free T4 4 Months E78.00 - Pure hypercholesterolemia, unspecified UA CC w/rflx Micro + Cult 4 Months R30.0 - Dysuria Comprehensive [place]. Panel Fast 4 Months E78.00 - Pure hypercholesterolemia, unspecified Vitamin D 25-OH Total 4 Months E55.9 - Vitamin D deficiency, unspecified Medications: Refilled clonazepam 0.5 mg PO TID 30 days PRN 90 tabs 0RF anxiety F41.9 - Anxiety disorder, unspecified oxycodone-acetaminophen 5-325 mg 1 tab PO Q8H 7 days PRN 21 tabs 0RF low back pain M51.36 - Other intervertebral disc degeneration, lumbar region Coding Level of Care Code Est Pt Level 4 (42360) Diagnoses Chronic obstructive pulmonary disease, unspecified COPD type J44.9 COPD type: unspecified COPD Pulmonary nodules R91.8 Pure hypercholesterolemia E78.00 Benign essential hypertension I10 Obstructive sleep apnea G47.33 Renal cell carcinoma of left kidney C64.2 Lumbar degenerative disc disease M51.36 Lumbar back pain with radiculopathy affecting right lower extremity M54.16 Primary osteoarthritis of knees, bilateral M17.0 Gastroesophageal reflux disease without esophagitis K21.9 Esophagitis presence: without esophagitis Vitamin D deficiency E55.9 Anxiety F41.9 Episode of recurrent major depressive disorder, unspecified depression episode severity F33.9 Depression Type: major depressive disorder Major depression recurrence: recurrent Active/Remission status: currently active Major depression episode severity: unspecified
== END 2023-08-23 13:21 | disposition home or self-care (01) ==
PROVIDERS: PCP Internal Medicine; Visit Provider Internal Medicine
DX: J44.9 Chronic obstructive pulmonary disease, unspecified (principal); C64.2 Malignant neoplasm of left kidney, except renal pelvis; F33.9 Major depressive disorder, recurrent, unspecified; R91.8 Other nonspecific abnormal finding of lung field; E78.00 Pure hypercholesterolemia, unspecified; I10 Essential (primary) hypertension; G47.33 Obstructive sleep apnea (adult) (pediatric); M51.36 Other intervertebral disc degeneration, lumbar region; M54.16 Radiculopathy, lumbar region; M17.0 Bilateral primary osteoarthritis of knee; K21.9 Gastro-esophageal reflux disease without esophagitis
CPT/HCPCS: 99214

== ENCOUNTER 2023-08-31 13:36 | Outpatient (AMB) | payer OTHER, SELFPAY ==
[2023-08-31 13:37] VITALS: BP 128/78; PULSE 102; O2SAT 95; BMI 21.0
--- NOTE | 2023-08-31 13:37 | A.OFFVIS_ITS ---
Intake Vital Signs 08/31/23 13:37 Height 5 ft 4 in Weight 122 lb 5.705 oz BMI 21.0 BP 128/78 Blood Pressure Location Rt brachial Position Sitting Pulse 102 H Pulse Source Doppler Pulse Oximetry (%) 95 Oxygen Delivery Method Room Air Intake Visit Reasons: COPD Allergies Sulfa (Sulfonamide Antibiotics) Allergy (Severe, Verified 08/31/23 13:39) ANAPHYLAXIS Penicillins Allergy (Mild, Verified 08/31/23 13:39) RASH aspirin [ASA] Allergy (Unknown, Verified 08/31/23 13:39) UNKNOWN, stomach upset codeine [Codeine] Allergy (Unknown, Verified 08/31/23 13:39) NAUSEA & VOMITING diphenhydramine [Advil PM] Allergy (Unknown, Verified 08/31/23 13:39) Unknown ibuprofen [From ADVIL] Allergy (Unknown, Verified 08/31/23 13:39) UNKNOWN HPI COPD HPI Details 68-year-old lady, former 30+ pack-year s moker, quit 2011 now uses vaping devices followed for bronchiectasis, abnormal chest imaging, and emphysema.? Her symptoms baseline are well controlled on Incruse, Flovent, and duo nebs.? After the last office visit patient had follow-up CT chest with official results not available for this visit, but with increasing pulmonary nodules on my review. She is also complain of cough productive of sputum. [facility] Medical History Malignant neoplasm of left kidney Vitamin D deficiency Depression Primary osteoarthritis of knees, bilateral Pure hypercholesterolemia Elevated C-reactive protein (CRP) Palpitations Constipation Obstructive sleep apnea Anxiety Benign essential hypertension Renal cell carcinoma of left kidney Oral thrush Lumbar degenerative disc disease Status post fall Right foot pain Chronic allergic bronchitis GERD (gastroesophageal reflux disease) Surgical History History of nephrectomy Family History Father Hypertension CVD (cardiovascular disease) Cancer Mother Hypertension Substance abuse Other Mental health problem Social History Housing: House Alcohol intake: never Patient Tobacco Use Status: Former Tobacco user Quit Date: 2011 Tobacco use type: Cigarette Cigarette Packs Per Day: 1.5 Years Smoked: 35 +/- e-Cigarette/Vaping Use: Currently Using Second Hand Smoke Exposure: Yes service: No Current occupational status: disabled Cognitive needs: No Hearing needs: No Vision needs: No Review of Systems Const Denies daytime sleepiness, Denies excessive sweating, Denies fatigue, Denies fever(s), Denies lethargy, Denies malaise, Denies night sweats, Denies snoring and Denies weight loss Eyes Denies blurry vision and Denies itchy eyes ENT Denies nasal congestion, Denies post nasal drip, Denies sinus pain, Denies sinus pressure and Denies other ( Thrush) Card Denies chest pain, Denies pedal edema, Denies dyspnea, Denies orthopnea and Denies paroxysmal nocturnal dyspnea Resp Reports cough, Denies hemoptysis, Reports excessive phlegm production, Denies dyspnea, Denies snoring and Denies wheezing GI Denies abdominal pain and Denies heartburn Musc Denies myalgias, Denies arthralgias and Denies joint swelling Skin/Breast Denies rash Neuro Denies memory loss and Denies seizure-like activity Psych Denies abnormal sleep pattern, Denies anxiety and Denies memory loss Endo Denies excessive sweating, Denies fatigue and Denies heat intolerance Ronal/Lymph Denies easy bruising Aller/Immun Denies itchy eyes, Denies seasonal rhinorrhea and Denies wheezing Physical Exam Vital Signs: Last Vital Signs Pulse 102 H 08/31/23 13:37 BP 128/78 08/31/23 13:37 Pulse Ox 95 08/31/23 13:37 Oxygen Delivery Method Room Air 08/31/23 13:37 BMI result Body Mass Index 21.0 Const General: no acute distress and alert Nutritional Appearance: not obese Orientation/consciousness: Other orientation findings ( oriented) HEENT Head: Yes atraumatic Eyes General: appearance normal, both eyes and all related structures Sclerae: sclerae normal EOM: EOMs intact bilaterally Neck Neck: Yes supple Lymphatic: no lymphadenopathy noted Resp Effort & Inspection: normal respiratory effort and no use of accessory muscles Auscultation: clear to auscultation bilaterally Cardio Rate: regular rate Rhythm: regular rhythm Heart sounds: no gallops, no murmurs and no rubs Skin General skin exam: other ( warm) Extrem General: No clubbing, No cyanosis and No edema Assessment & Plan Assessment & Plan (1) Pulmonary nodule 1 cm or greater in diameter: Code(s): R91.1 - Solitary pulmonary nodule Plan: Will obtain PET-CT for further evaluation and plan for biopsy. (2) Bronchiectasis: Code(s): J47.9 - Bronchiectasis, uncomplicated Plan: With acute exacerbation, will treat with a course of Levaquin. (3) COPD (chronic obstructive pulmonary disease): Code(s): J44.9 - Chronic obstructive pulmonary disease, unspecified Qualifiers: COPD type: unspecified COPD Qualified Code(s): J44.9 - Chronic obstructive pulmonary disease, unspecified Plan: Baseline controlled on Incruse, Flovent, albuterol MDI, and duo nebs. Continue current regimen. Will obtain full PFT. Orders: Orders PFT pulmonary function test Today J44.9 - Chronic obstructive pulmonary disease, unspecified PET CT fusion skull to thigh Today R91.1 - Solitary pulmonary nodule Medications: New levofloxacin 750 mg PO DAILY 7 tabs 0RF J44.9 - Chronic obstructive pulmonary disease, unspecified Discontinued doxycycline monohydrate Discontinued Reason: Doctor's Order 100 mg PO BID 20 caps 0RF Coding Level of Care Code Est Pt Level 4 (28668) Diagnoses Pulmonary nodule 1 cm or greater in diameter R91.1 Bronchiectasis J47.9 Chronic obstructive pulmonary disease, unspecified COPD type J44.9 COPD type: unspecified COPD
== END 2023-08-31 14:05 | disposition home or self-care (01) ==
PROVIDERS: PCP Internal Medicine; Visit Provider Internal Medicine Pulmonary Disease
DX: R91.1 Solitary pulmonary nodule (principal); J47.9 Bronchiectasis, uncomplicated
CPT/HCPCS: 99214

== ENCOUNTER → 2023-08-31 13:36 | Outpatient (BNVA) | payer OTHER, SELFPAY | PROVIDERS: PCP Internal Medicine; Visit Provider Internal Medicine Pulmonary Disease | DX: R91.1 Solitary pulmonary nodule (principal); J47.9 Bronchiectasis, uncomplicated; J44.9 Chronic obstructive pulmonary disease, unspecified | CPT/HCPCS: 99212 ==

== ENCOUNTER 2023-09-06 10:02 | Outpatient (REF) | payer OTHER, SELFPAY ==
--- NOTE | 2023-09-06 09:00 | PFT_ITS ---
Indication: Pulmonary nodule Spirometry [FEV1 to FVC 64%; FEV1 1.76 L which is 102% predicted; FVC 2.77 L which is 101% predicted. No significant response to bronchodilators noted. Maximum voluntary ventilation 62% predicted] Lung Volumes [Total lung capacity 87% predicted] Diffusion Capacity 49% predicted Comparisons [none] Interpretation [There is an obstructive ventilatory defect consistent with mild COPD. No significant response to bronchodilators noted. [id number] decrease in the maximum voluntary ventilation secondary to likely deconditioning. Lung volumes are within normal limits. The patient does have a moderate to severe diffusion impairment. Need to consider underlying emphysematous changes and or other parenchymal lung conditions. She would also correct for hemoglobin. Clinical correlation warranted.] MTDD
== END 2023-09-06 10:03 | disposition home or self-care (01) ==
LOC: HO.RESP 10:02
PROVIDERS: PCP Internal Medicine; Visit Provider Internal Medicine Pulmonary Disease
DX: J44.9 Chronic obstructive pulmonary disease, unspecified (principal)
CPT/HCPCS: 94010; 94727; 94729

== ENCOUNTER 2023-09-12 09:14 | Outpatient (REF) | payer OTHER, SELFPAY ==
--- NOTE | ~2023-09-12 | PE_ITS ---
EXAMINATION: FLUORINE-18 FDG PET/CT SCAN CLINICAL INFORMATION: Initial treatment management. A 68-year-old female with bilateral lung nodules. TECHNIQUE: 62 minutes following the intravenous administration of 15.9 mCi of fluorine 18 FDG, images from the base of skull to mid-thigh were obtained using a combined PET/CT scanner with CT scan based attenuation correction. No intravenous contrast was administered. Transverse, coronal, sagittal, and volume reconstruction projections were obtained. The patient's blood glucose as determined by a finger stick, was 92 mg/dL immediately prior to injection. The radiotracer was injected intravenously through the left antecubital superficial vein, without any complications. Total CT exam dose-length product 483.50 mGy-cm. * These CT images were obtained using dose optimization techniques as appropriate, variously including the following: Automated exposure control * Adjustment of mA and/or kV according to patient size (this includes techniques or standardized protocols for targeted exams where dose is matched to indication/reason for exam; i.e. extremities or head) * Use of iterative reconstruction technique COMPARISON: CT of the chest done on 08/22/2023 and 01/27/2023. FINDINGS: SUV max REFERENCE: Blood: 2.6 (93/267). Liver: 2.7 (128/267). HEAD AND NECK: No abnormal radiotracer uptake. No large intracranial hemorrhage, acute territorial infarct or significant shift of midline structures. CHEST: Ports and Devices: None Lungs: The index approximately 1 cm maximum dimension noncalcified lung nodule abutting the central part of the right minor fissure and the mediastinal pleura shows mild tracer avidity with SUV max of 1.3 (98/267). The size of the nodule has increased since CT of the chest done on 01/27/2023 (measured approximately 5 mm at that time). The second dominant nodule seen within the mid part of the left lower lobe of the lung also appear to have increased by a few millimeters since the available baseline study dated 01/27/2023. However, no definite radiotracer avidity is visualized likely secondary to small size as well as significant motion artifact and the peridiaphragmatic location. The remainder of the other smaller bilateral lung nodules are too small for accurate characterization with this current modality. Note is made of interval development of mild subpleural curvilinear airspace opacity associated with increased tracer avidity with SUV max of 2.8 at the right upper lobe of the lung anterolaterally abutting the overlying pleural surface and is inseparable from the adjacent chest wall and the rib. This is likely represent subpleural airspace disease however, given the presence of misregistration artifact, abnormality may also be localized to the pleural as well as the chest wall including the rib. Pleura: No significant pleural effusion. Lymph Nodes: No tracer-avid mediastinal, hilar or internal mammary or axillary lymphadenopathy. Mediastinum: There is no significant pericardial effusion/thickening. Breasts/Chest Wall: No abnormal radiotracer uptake. ABDOMEN/PELVIS: Liver/Biliary System: The liver is enlarged and its inferior tip is seen at the level of the right iliac fossa measuring 19 cm at its maximum craniocaudal dimension. There is a heterogeneous focal 5.6 x 4.6 cm hypodensity present along the subcapsular aspect of right lobe of the liver, specifically segment 7 seen only on the CT part of the study without any definite increased or decreased tracer avidity to this area. Follow-up multiphasic pre and postcontrast MRI of the liver is recommended for further full detail evaluation. The gallbladder appears unremarkable. Pancreas: Normal.No evidence of pancreatic ductal dilatation. Spleen: No abnormal radiotracer uptake. No evidence of splenomegaly. Adrenal Glands: No abnormal radiotracer uptake. Kidneys: The left kidney is surgically absent. There is no evidence of any residual or recurrent disease at the surgical bed. The right kidney appears unremarkable. Bowel: There is no significant bowel dilatation to suggest obstruction. Mild tracer avidity in the region of the body of the stomach likely represent inflammatory changes. Significant fecal residual is noted within the large bowel with colonic diverticulosis without any CT features of superimposed acute diverticulitis. Lymph Nodes: No tracer avid retroperitoneal, mesenteric or pelvic and/or groin lymphadenopathy. Pelvic Organs: The urinary bladder is underdistended. MUSCULOSKELETAL: No tracer avid focal disease to suspect metastasis. VASCULAR: Calcific atherosclerotic disease of the aorta including carotid and coronary arterial calcifications. No evidence of aneurysm. THE SITE(S) OF MOST INTENSE FDG AVIDITY AND SUV MAX: Indeterminate right upper lobar subpleural airspace disease with SUV max of 2.8. The index enlarging mediastinal pleural-based nodule inseparable from the medial part of the right minor fissure measuring approximately 1 cm associated with mild tracer avidity with SUV max of 1.3. PET/PET CT fusion skull to thigh IMPRESSION: 1. Bilateral enlarging lung nodules. The dominant approximately 1 cm nodules seen abutting the mediastinal pleura located along the medial central part of the right minor fissure shows mild tracer avidity with SUV max of 1.3. The second dominant left lower lobar subcentimeter nodule is not tracer avid however, could be false negative given its small size as well as its location and presence of significant motion artifact. Given the history of prior left renal malignancy, the findings are suspicious for evolving metastatic disease, and less likely to be synchronous lung primary. Tissue diagnosis is recommended for further clarification. 2. Incidental note is made of heterogeneous focal 5.6 x 4.6 cm hypodensity along the subcapsular aspect of the segment 7 of right lobe of the liver, seen only on the CT part of the study without any tracer avidity, for which a follow-up multiphasic pre and postcontrast MRI of the liver is recommended for further full detail evaluation. 3. Right upper lobar subpleural focal tracer avidity with SUV max of 2.8 may represent nonspecific pleural parenchymal abnormality versus chest wall including ribs lesion. Further differentiation cannot be made given the presence of significant motion and misregistration artifacts. This critical result was discussed with Dr. Rosenbaum at 10:22 AM on 09/15/2023 and it was ascertained that the content and urgency of the report was understood at the time of direct communication.
== END 2023-09-12 09:15 | disposition home or self-care (01) ==
LOC: HO.PET 09:14
PROVIDERS: PCP Internal Medicine; Visit Provider Internal Medicine Pulmonary Disease
DX: Z13.89 Encounter for screening for other disorder (principal)

== ENCOUNTER 2023-09-19 11:30 | Outpatient (AMB) | payer OTHER, SELFPAY ==
[2023-09-19 11:31] VITALS: BP 119/67; PULSE 100; O2SAT 92; BMI 21.0
--- NOTE | 2023-09-19 11:31 | A.OFFVIS_ITS ---
Intake Vital Signs 09/19/23 11:31 Height 5 ft 4 in Weight 122 lb 5.705 oz BMI 21.0 BP 119/67 Blood Pressure Location Rt brachial Position Sitting Pulse 100 Pulse Source Doppler Pulse Oximetry (%) 92 Oxygen Delivery Method Room Air Intake Visit Reasons: Review PET scan results Allergies Sulfa (Sulfonamide Antibiotics) Allergy (Severe, Verified 09/19/23 11:37) ANAPHYLAXIS Penicillins Allergy (Mild, Verified 09/19/23 11:37) RASH aspirin [ASA] Allergy (Unknown, Verified 09/19/23 11:37) UNKNOWN, stomach upset codeine [Codeine] Allergy (Unknown, Verified 09/19/23 11:37) NAUSEA & VOMITING diphenhydramine [Advil PM] Allergy (Unknown, Verified 09/19/23 11:37) Unknown ibuprofen [From ADVIL] Allergy (Unknown, Verified 09/19/23 11:37) UNKNOWN HPI Review PET scan results HPI Details 68-year-old lady, former 30+ pack-year s moker, quit 2011 now uses vaping devices followed for bronchiectasis, abnormal chest imaging, and emphysema.? Her symptoms baseline are well controlled on Incruse, Flovent, and duo nebs.? After the last office visit patient had follow-up CT chest with increasing pulmonary nodules. PET/CT demonstrate some of EDT in the right-sided 1 cm nodule. Patient is interested in taking it out. [facility] Medical History Malignant neoplasm of left kidney Vitamin D deficiency Depression Primary osteoarthritis of knees, bilateral Pure hypercholesterolemia Elevated C-reactive protein (CRP) Palpitations Constipation Obstructive sleep apnea Anxiety Benign essential hypertension Renal cell carcinoma of left kidney Oral thrush Lumbar degenerative disc disease Status post fall Right foot pain Chronic allergic bronchitis GERD (gastroesophageal reflux disease) Surgical History History of nephrectomy Family History Father Hypertension CVD (cardiovascular disease) Cancer Mother Hypertension Substance abuse Other Mental health problem Social History Housing: House Alcohol intake: never Patient Tobacco Use Status: Former Tobacco user Quit Date: 2011 Tobacco use type: Cigarette Cigarette Packs Per Day: 1.5 Years Smoked: 35 +/- e-Cigarette/Vaping Use: Currently Using Second Hand Smoke Exposure: Yes service: No Current occupational status: disabled Cognitive needs: No Hearing needs: No Vision needs: No Review of Systems Const Denies daytime sleepiness, Denies excessive sweating, Denies fatigue, Denies fever(s), Denies lethargy, Denies malaise, Denies night sweats, Denies snoring and Denies weight loss Eyes Denies blurry vision and Denies itchy eyes ENT Denies nasal congestion, Denies post nasal drip, Denies sinus pain, Denies sinus pressure and Denies other ( Thrush) Card Denies chest pain, Denies pedal edema, Denies dyspnea, Denies orthopnea and Denies paroxysmal nocturnal dyspnea Resp Denies cough, Denies hemoptysis, Denies excessive phlegm production, Denies dyspnea, Denies snoring and Denies wheezing GI Denies abdominal pain and Denies heartburn Musc Denies myalgias, Denies arthralgias and Denies joint swelling Skin/Breast Denies rash Neuro Denies memory loss and Denies seizure-like activity Psych Denies abnormal sleep pattern, Denies anxiety and Denies memory loss Endo Denies excessive sweating, Denies fatigue and Denies heat intolerance Ronal/Lymph Denies easy bruising Aller/Immun Denies itchy eyes, Denies seasonal rhinorrhea and Denies wheezing Physical Exam Vital Signs: Last Vital Signs Pulse 100 09/19/23 11:31 BP 119/67 09/19/23 11:31 Pulse Ox 92 09/19/23 11:31 Oxygen Delivery Method Room Air 09/19/23 11:31 BMI result Body Mass Index 21.0 Const General: no acute distress and alert Nutritional Appearance: not obese Orientation/consciousness: Other orientation findings ( oriented) HEENT Head: Yes atraumatic Eyes General: appearance normal, both eyes and all related structures Sclerae: sclerae normal EOM: EOMs intact bilaterally Neck Neck: Yes supple Lymphatic: no lymphadenopathy noted Resp Effort & Inspection: normal respiratory effort and no use of accessory muscles Auscultation: clear to auscultation bilaterally Cardio Rate: regular rate Rhythm: regular rhythm Heart sounds: no gallops, no murmurs and no rubs Skin General skin exam: other ( warm) Extrem General: No clubbing, No cyanosis and No edema Assessment & Plan Assessment & Plan (1) Pulmonary nodule 1 cm or greater in diameter: Code(s): R91.1 - Solitary pulmonary nodule Plan: Results of PET-CT reviewed, patient is interested in removal of bilateral pulmonary nodules. Will refer to thoracic surgery. (2) COPD (chronic obstructive pulmonary disease): Code(s): J44.9 - Chronic obstructive pulmonary disease, unspecified Qualifiers: COPD type: unspecified COPD Qualified Code(s): J44.9 - Chronic obstructive pulmonary disease, unspecified Plan: Well controlled on a baseline regimen of Incruse, duo nebs, and albuterol MDI. Continue current regimen. (3) Liver lesion: Code(s): K76.9 - Liver disease, unspecified Plan: Notification sent to patient's primary care provider to follow-up with MRI. Orders: Referrals Thoracic Surgery Referral R91.1 - Solitary pulmonary nodule Coding Level of Care Code Est Pt Level 4 (42833) Diagnoses Pulmonary nodule 1 cm or greater in diameter R91.1 Chronic obstructive pulmonary disease, unspecified COPD type J44.9 COPD type: unspecified COPD Liver lesion K76.9
== END 2023-09-19 11:58 | disposition home or self-care (01) ==
PROVIDERS: PCP Internal Medicine; Visit Provider Internal Medicine Pulmonary Disease
DX: R91.1 Solitary pulmonary nodule (principal); J44.9 Chronic obstructive pulmonary disease, unspecified; K76.9 Liver disease, unspecified
CPT/HCPCS: 99214

== ENCOUNTER → 2023-09-19 11:30 | Outpatient (BNVA) | payer OTHER, SELFPAY | PROVIDERS: PCP Internal Medicine; Visit Provider Internal Medicine Pulmonary Disease | DX: R91.1 Solitary pulmonary nodule (principal); J44.9 Chronic obstructive pulmonary disease, unspecified; K76.9 Liver disease, unspecified | CPT/HCPCS: 99212 ==

== ENCOUNTER 2023-09-20 09:57 | Outpatient (AMB) | payer OTHER, SELFPAY ==
--- NOTE | 2023-09-20 10:02 | MHC.OFFVIS ---
Intake Vital Signs 09/20/23 10:07 Height 5 ft 4 in Weight 122 lb BMI 20.9 BP 122/68 Blood Pressure Location Rt brachial Position Sitting Pulse 99 Intake Visit Reasons: Solitary pulmonary nodule Intake Note: Patient here referred by Dr. Rosenbaum for bilateral pulmonary nodules. Recent PET scan on 09-12-23. Patient would like Rt lung nodule removed. Patient reports emphysema. Getting pneumonia more often. Hand Coke Drawer Required: No Accompanied by: Self / Same As Patient Allergies Sulfa (Sulfonamide Antibiotics) Allergy (Severe, Verified 09/20/23 10:04) ANAPHYLAXIS Penicillins Allergy (Mild, Verified 09/20/23 10:04) RASH aspirin [ASA] Allergy (Unknown, Verified 09/20/23 10:04) UNKNOWN, stomach upset codeine [Codeine] Allergy (Unknown, Verified 09/20/23 10:04) NAUSEA & VOMITING diphenhydramine [Advil PM] Allergy (Unknown, Verified 09/20/23 10:04) Unknown ibuprofen [From ADVIL] Allergy (Unknown, Verified 09/20/23 10:04) UNKNOWN HPI HPI Comments History of Present Illness Details Patient presents here for evaluation of right lung nodules on surveillance CT scan followed by PET scan clots demonstrate the lesions in question. Patient had a left nephrectomy for renal cell carcinoma on 03/21. She has done reasonably well since then. Patient has a significant smoking history in the past. She discontinued smoking in 2000. She does occasionally vape. Patient denies any significant weight loss, and NG loss or diminished appetite. Patient has no chronic respiratory symptoms. She denies any cough, hemoptysis, chest pain, wheezing. Chart was reviewed patient evaluated. Pulmonary function tests were reviewed and were quite good. [facility] Medical History Malignant neoplasm of left kidney Vitamin D deficiency Depression Primary osteoarthritis of knees, bilateral Pure hypercholesterolemia Elevated C-reactive protein (CRP) Palpitations Constipation Obstructive sleep apnea Anxiety Benign essential hypertension Renal cell carcinoma of left kidney Oral thrush Lumbar degenerative disc disease Status post fall Right foot pain Chronic allergic bronchitis GERD (gastroesophageal reflux disease) Surgical History History of nephrectomy Family History Father Hypertension CVD (cardiovascular disease) Cancer Mother Hypertension Substance abuse Other Mental health problem Social History Housing: House Alcohol intake: never Patient Tobacco Use Status: Former Tobacco user Quit Date: 2011 Tobacco use type: Cigarette Cigarette Packs Per Day: 1.5 Years Smoked: 35 +/- e-Cigarette/Vaping Use: Currently Using Second Hand Smoke Exposure: Yes service: No Current occupational status: disabled Cognitive needs: No Hearing needs: No Vision needs: No Physical Exam Vital Signs: Last Vital Signs Pulse 99 09/20/23 10:07 BP 122/68 09/20/23 10:07 BMI result Body Mass Index 20.9 Chest Other: Chest breath sounds bilaterally. HS 1 and 2. No periclavicular or axillary or groin adenopathy bilaterally. GI Other: Abdomen soft, benign. Multiple scars from nephrectomy surgery. Assessment & Plan Assessment & Plan (1) Pulmonary nodule 1 cm or greater in diameter: Code(s): R91.1 - Solitary pulmonary nodule Plan I discussed with the patient the PET scan and CT scan findings. Current recommendation is for thorascopic possible open wedge resection of these lung lesions. Differential diagnosis range from benign (e.g. granuloma) to malignant (primary or metastatic secondary to renal cell carcinoma) Risks, benefits, alternatives of the right fluoroscopic possible open long biopsy/wedge resection were reviewed with the patient and included but not limited to bleeding, infection, non diagnosis, numbness, pain, scarring, pneumothorax and the patient wishes to proceed. All questions answered. Arrangements will be made for this. Coding Level of Care Code New Pt Level 5 (15968) Diagnoses Pulmonary nodule 1 cm or greater in diameter R91.1
[2023-09-20 10:07] VITALS: BP 122/68; PULSE 99; BMI 20.9
== END 2023-09-20 10:28 | disposition home or self-care (01) ==
PROVIDERS: PCP Internal Medicine; Referring Provider Internal Medicine Pulmonary Disease; Visit Provider Surgery
DX: R91.1 Solitary pulmonary nodule (principal)
CPT/HCPCS: 99205

== ENCOUNTER → 2023-09-20 09:57 | Outpatient (BNVA) | payer OTHER, SELFPAY | PROVIDERS: PCP Internal Medicine; Referring Provider Internal Medicine Pulmonary Disease; Visit Provider Surgery | DX: R91.1 Solitary pulmonary nodule (principal) | CPT/HCPCS: 99202 ==

== ENCOUNTER → 2023-09-28 14:14 | Outpatient (BNV) | payer OTHER, SELFPAY | PROVIDERS: Admitting Provider Surgery; PCP Internal Medicine; Visit Provider Internal Medicine | DX: R91.1 Solitary pulmonary nodule (principal); R94.31 Abnormal electrocardiogram [ECG] [EKG] | CPT/HCPCS: 93010 ==

== ENCOUNTER 2023-10-06 11:11 | Inpatient (IN) | payer OTHER, SELFPAY ==
--- NOTE | 2023-09-28 | ECG_ITS ---
Test Reason : preop Blood Pressure : / mmHG Vent. Rate : 079 BPM Atrial Rate : 079 BPM P-R Int : 176 ms QRS Dur : 084 ms QT Int : 382 ms P-R-T Axes : 066 037 053 degrees QTc Int : 438 ms Normal sinus rhythm Possible Left atrial enlargement Borderline ECG When compared with ECG of 15-MAR-2023 22:41, No significant change was found Referred By: Dolly Gonzalez Electronically Signed By:EVY JIMENEZ
[2023-09-28 13:19] VITALS: BP 126/70; PULSE 89; RESP 20; O2SAT 98; BMI 21.4
[2023-09-28 15:16] LABS: Hematocrit 41.8 % (37.0-47.0); Hemoglobin 13.6 g/dl (12.0-16.0); Mean Corpuscular HGB Conc 32.5 g/dl (31.0-35.0); Mean Corpuscular Hemoglobin 27.2 pg (27.0-33.0); Mean Corpuscular Volume 83.6 fL (80.0-98.0); Mean Platelet Volume 8.8 fL (9.4-12.3); Platelet Count 368 X10*3/uL (160-400); Red Cell Distribution Width 14.3 % (11.0-16.0); White Blood Count 6.8 X10*3/uL (4.8-10.8)
[2023-09-28 15:43] LABS: Anion Gap 15 (12-20); Blood Urea Nitrogen 6 mg/dL (9-16); Calcium 9.6 mg/dL (8.4-10.2); Carbon Dioxide 33 mmol/L (22-29); Chloride 94 mmol/L (96-108); Creatinine Clr Calc Pharmacy 61.8; Estimated Glomerular Filt Rate > 60; Glucose Random 70 mg/dL (60-115); Potassium 4.6 mmol/L (3.3-5.1); Sodium 137 mmol/L (135-145)
--- NOTE | 2023-10-05 15:12 | MHC.SHP ---
Pre-Procedural Eval Section A Date of Service: 10/05/23 The patient is an INPATIENT: Yes Changes since office visit: No Cold of Flu in the past 2 weeks, No New Medical Problems, No Changes in Medication and No Patient answered all questions The History & Physical has been completed within 30 days and I have reviewed it.: Yes Section B Chief Complaint: Solitary pulmonary nodule Allergies: Allergies Allergy/AdvReac Type Severity Reaction Status Date / Time Sulfa (Sulfonamide Allergy Severe ANAPHYLAXIS Verified 09/20/23 10:04 Antibiotics) Penicillins Allergy Intermediate RASH Verified 09/28/23 13:11 aspirin [ASA] AdvReac Severe severe Verified 09/28/23 13:11 stomach pain NSAIDS (Non-Steroidal AdvReac Severe severe Verified 09/28/23 13:11 Anti-Inflamma stomach pain codeine [Codeine] AdvReac Intermediate NAUSEA & Verified 09/28/23 13:11 VOMITING Plan I have reviewed the history and physical and performed a pertinent physical examination on my patient. No changes have occurred unless specified. Time Spent With Patient Time: Total time managing care of this patient today ____ minutes.
[2023-10-06] VITALS (34 sets, daily range): BP systolic 90–147; BP diastolic 50–85; PULSE 57–86; RESP 7–20; TEMP 36.1–36.6; O2SAT 88–100
--- NOTE | ~2023-10-06 | XR_ITS ---
EXAMINATION: XR CHEST CLINICAL INFORMATION: Status post chest tube removal COMPARISON: AP upright portable chest same day 8:44 AM TECHNIQUE: AP upright portable chest view of the chest was obtained. 12:46 PM FINDINGS: Interval removal of right thoracostomy tube with its tip in the right lung apex. Possible small collection of air at the prior tip of the thoracostomy tube. Question of small lateral apical pneumothorax. Similar hazy opacity and the inferior aspect of the right upper lobe. No gross pleural effusions. The cardiac mediastinal silhouette is stable. No interstitial pulmonary edema. No acute osseous abnormality. XR/XR chest 1V IMPRESSION: 1. Interval removal of right thoracostomy tube with its tip in the right lung apex. 2. Possible small collection of air at the prior tip of the thoracostomy tube. 3. Question of small lateral apical pneumothorax.
--- NOTE | 2023-10-06 08:30 | HO.ANESPROP2 ---
Documented by User: Dolly Gonzalez NP 10/05/23 10:46 HPI - Anesthesia Eval Consult details Narrative: 68yo F for Bronchoscopy, Right Thoracoscopy w/Video Assist lung biopsy No recent illness No CP with groceries, housework. Chronic SOB. Renal cancer s/p nephrectomy 2019 GERD. H2 and ppi mostly covers. Occasional breakthrough with diet. COPD. Stable with tx LANEY. Rare CPAP use. Encouraged compliance preop. PONV after dental surgery. Declines scop patch d/t dry mouth. No issue with PONV after nephrectomy 2019. PMFSH Active Problems Active Problems: All Active Problems (Updated 09/28/23 @ 13:12 by Autumn Pal RN) Liver lesion (Acute) Pulmonary nodule 1 cm or greater in diameter (Acute) COPD exacerbation (Acute) Confusion (Acute) Medication management (Acute) COVID-19 (Acute) Colon cancer screening (Acute) Breast cancer screening by mammogram (Acute) Lumbar back pain with radiculopathy affecting right lower extremity (Acute) Dizziness (Acute) Diminished libido (Acute) Bilateral knee pain (Acute) Annual physical exam (Acute) Cervical radiculopathy (Acute) Shoulder pain, left (Acute) Left elbow pain (Acute) Pleuritic chest pain (Acute) UTI (urinary tract infection) (Acute) Cough (Acute) Chest wall pain (Acute) Bronchiectasis (Acute) Fever (Acute) Chest pain (Acute) Easy bruising (Acute) Pulmonary nodules (Acute) LANEY (obstructive sleep apnea) (Acute) COPD (chronic obstructive pulmonary disease) (Acute) Malignant neoplasm of left kidney (Acute) Vitamin D deficiency (Acute) Depression (Acute) Primary osteoarthritis of knees, bilateral (Acute) Pure hypercholesterolemia (Acute) Elevated C-reactive protein (CRP) (Acute) Palpitations (Acute) Constipation (Acute) Obstructive sleep apnea (Acute) Anxiety (Acute) Benign essential hypertension (Acute) Renal cell carcinoma of left kidney (Acute) Oral thrush (Acute) Lumbar degenerative disc disease (Acute) Status post fall (Acute) Right foot pain (Acute) Chronic allergic bronchitis (Acute) GERD (gastroesophageal reflux disease) (Acute) Past Medical History Medical History (Updated 09/28/23 @ 13:12 by Autumn Pal RN) Post-operative nausea and vomiting Dry eye COVID-19 COPD (chronic obstructive pulmonary disease) Malignant neoplasm of left kidney Vitamin D deficiency Depression Primary osteoarthritis of knees, bilateral Pure hypercholesterolemia Elevated C-reactive protein (CRP) Palpitations Constipation Obstructive sleep apnea Anxiety Benign essential hypertension Renal cell carcinoma of left kidney Oral thrush Lumbar degenerative disc disease Status post fall Right foot pain Chronic allergic bronchitis GERD (gastroesophageal reflux disease) Family History Family History Father Hypertension CVD (cardiovascular disease) Cancer Mother Hypertension Substance abuse Other Mental health problem Family history of problems with anesthesia: No Surgical History Surgical History (Updated 09/28/23 @ 13:12 by Autumn Pal RN) Hx of oral surgery Hx of tonsillectomy History of nephrectomy History of Problems with Anesthesia: Yes (PONV) Social History Social History Housing: House Are you a primary health care legal assistant to a significant other at home: No Do you presently have visiting nurse or other home services: No Alcohol intake: never Patient Tobacco Use Status: Former Tobacco user Quit Date: 2011 Tobacco use type: Cigarette Cigarette Packs Per Day: 1.5 Years Smoked: 30 e-Cigarette/Vaping Use: Currently Using Second Hand Smoke Exposure: Yes service: No Current occupational status: disabled Cognitive needs: No Hearing needs: No Vision needs: No Meds Allergies Allergy/AdvReac Type Severity Reaction Status Date / Time Sulfa (Sulfonamide Allergy Severe ANAPHYLAXIS Verified 09/20/23 10:04 Antibiotics) Penicillins Allergy Intermediate RASH Verified 09/28/23 13:11 aspirin [ASA] AdvReac Severe severe Verified 09/28/23 13:11 stomach pain NSAIDS (Non-Steroidal AdvReac Severe severe Verified 09/28/23 13:11 Anti-Inflamma stomach pain codeine [Codeine] AdvReac Intermediate NAUSEA & Verified 09/28/23 13:11 VOMITING Home Medications Medication Instructions Recorded Confirmed Last Taken Type cyclosporine 0.05 % eye drops in a 1 drp ophthalmic (eye) BID 07/22/20 09/28/23 10/05/23 History dropperette amitriptyline 75 mg tablet 75 mg PO BEDTIME 09/28/23 09/28/23 10/05/23 History atorvastatin 10 mg tablet 10 mg PO QAM 09/28/23 09/28/23 10/05/23 History dexlansoprazole 60 mg 60 mg PO QPM for acid reflux 09/28/23 09/28/23 10/06/23 History capsule,biphase delayed release (Dexilant) famotidine 40 mg tablet 40 mg PO BEDTIME 09/28/23 09/28/23 10/05/23 History hydrochlorothiazide 25 mg tablet 25 mg PO QAM 09/28/23 09/28/23 10/05/23 History nifedipine 30 mg tablet,extended 30 mg PO BEDTIME 09/28/23 09/28/23 10/05/23 History release nystatin 100,000 unit/mL oral 10 ml buccal TID PRN thrush 09/28/23 09/28/23 Unknown History suspension umeclidinium 62.5 mcg/actuation 1 inh inhalation QAM 09/28/23 09/28/23 10/06/23 History blister powder for inhalation (Incruse Ellipta) Exam Height,Weight and Vital Signs: Height 5 ft 3 in Weight 54.885 kg Last Vital Signs Pulse 89 09/28/23 13:19 Resp 20 09/28/23 13:19 BP 126/70 09/28/23 13:19 Pulse Ox 98 09/28/23 13:19 O2 Del Method Room Air 09/28/23 13:19 Pertinent Lab Results Pertinent Lab Results: Lab Results 09/28/23 09/28/23 Range/Units 14:10 14:15 WBC 6.8 (4.8-10.8) X10*3/uL RBC 5.00 (4.20-5.50) X10*6/uL Hgb 13.6 (12.0-16.0) g/dl Hct 41.8 (37.0-47.0) % MCV 83.6 (80.0-98.0) fL MCH 27.2 (27.0-33.0) pg MCHC 32.5 (31.0-35.0) g/dl RDW 14.3 (11.0-16.0) % Plt Count 368 (160-400) X10*3/uL MPV 8.8 L (9.4-12.3) fL Absolute Nucleated RBC 0.000 (0.0-0.012) X10*3/uL Nucleated RBC % (auto) 0.0 (0.0-0.2) /100WBC Sodium 137 (135-145) mmol/L Potassium 4.6 D (3.3-5.1) mmol/L Chloride 94 L (96-108) mmol/L Carbon Dioxide 33 H (22-29) mmol/L Anion Gap 15 (12-20) BUN 6 L (9-16) mg/dL Creatinine 0.73 (0.5-1.4) mg/dL Estim Creat Clear Calc 61.8 Estimated GFR > 60 Random Glucose 70 (60-115) mg/dL Calcium 9.6 (8.4-10.2) mg/dL Blood Type A Positive Antibody Screen NEGATIVE Narrative Narrative: EKG 09/2023 Vent. Rate : 079 BPM Atrial Rate : 079 BPM P-R Int : 176 ms QRS Dur : 084 ms QT Int : 382 ms P-R-T Axes : 066 037 053 degrees QTc Int : 438 ms Normal sinus rhythm Possible Left atrial enlargement Borderline ECG When compared with ECG of 15-MAR-2023 22:41, No significant change was found CT chest wo IV con 08/2023 IMPRESSION: 1. Changes of centrilobular emphysema and multiple lung nodules bilaterally. 2. Scarring in the anterior mediastinum. 3. Coronary artery calcifications. PFT 09/2023 Spirometry [FEV1 to FVC 64%; FEV1 1.76 L which is 102% predicted; FVC 2.77 L which is 101% predicted. No significant response to bronchodilators noted. Maximum voluntary ventilation 62% predicted] Lung Volumes [Total lung capacity 87% predicted] Diffusion Capacity 49% predicted Comparisons [none] Interpretation [There is an obstructive ventilatory defect consistent with mild COPD. No significant response to bronchodilators noted. [id number] decrease in the maximum voluntary ventilation secondary to likely deconditioning. Lung volumes are within normal limits. The patient does have a moderate to severe diffusion impairment. Need to consider underlying emphysematous changes and or other parenchymal lung conditions. She would also correct for hemoglobin. Clinical correlation warranted.] Airway Mallampati Class: I TM Dist: >3cm Neck ROM: Full Denture: Upper and Lower Heart: RRR Lungs: CTAB Assessment and Plan Assessment Anesthesia Assessment: Anesthesia Plan Discussed, Smoking Cess. Discussed (VAPE) and PAT Visit Final Anesthetic Review Family History of Problems with Anesthesia: No History of Problems with Anesthesia: Yes (PONV) Documented by User: Luisana Bustillos DO 10/06/23 08:40 PMFSH Past Medical History Medical History (Updated 09/28/23 @ 13:12 by Autumn Pal RN) Post-operative nausea and vomiting Dry eye COVID-19 COPD (chronic obstructive pulmonary disease) Malignant neoplasm of left kidney Vitamin D deficiency Depression Primary osteoarthritis of knees, bilateral Pure hypercholesterolemia Elevated C-reactive protein (CRP) Palpitations Constipation Obstructive sleep apnea Anxiety Benign essential hypertension Renal cell carcinoma of left kidney Oral thrush Lumbar degenerative disc disease Status post fall Right foot pain Chronic allergic bronchitis GERD (gastroesophageal reflux disease) Family History Family History Father Hypertension CVD (cardiovascular disease) Cancer Mother Hypertension Substance abuse Other Mental health problem Family history of problems with anesthesia: No Surgical History Surgical History (Updated 09/28/23 @ 13:12 by Autumn Pal RN) Hx of oral surgery Hx of tonsillectomy History of nephrectomy History of Problems with Anesthesia: Yes (PONV) Social History Social History Housing: House Are you a primary health care legal assistant to a significant other at home: No Do you presently have visiting nurse or other home services: No Alcohol intake: never Patient Tobacco Use Status: Former Tobacco user Quit Date: 2011 Tobacco use type: Cigarette Cigarette Packs Per Day: 1.5 Years Smoked: 30 e-Cigarette/Vaping Use: Currently Using Second Hand Smoke Exposure: Yes service: No Current occupational status: disabled Cognitive needs: No Hearing needs: No Vision needs: No Meds Allergies Allergy/AdvReac Type Severity Reaction Status Date / Time Sulfa (Sulfonamide Allergy Severe ANAPHYLAXIS Verified 09/20/23 10:04 Antibiotics) Penicillins Allergy Intermediate RASH Verified 09/28/23 13:11 aspirin [ASA] AdvReac Severe severe Verified 09/28/23 13:11 stomach pain NSAIDS (Non-Steroidal AdvReac Severe severe Verified 09/28/23 13:11 Anti-Inflamma stomach pain codeine [Codeine] AdvReac Intermediate NAUSEA & Verified 09/28/23 13:11 VOMITING Home Medications Medication Instructions Recorded Confirmed Last Taken Type cyclosporine 0.05 % eye drops in a 1 drp ophthalmic (eye) BID 07/22/20 09/28/23 10/05/23 History dropperette amitriptyline 75 mg tablet 75 mg PO BEDTIME 09/28/23 09/28/23 10/05/23 History atorvastatin 10 mg tablet 10 mg PO QAM 09/28/23 09/28/23 10/05/23 History dexlansoprazole 60 mg 60 mg PO QPM for acid reflux 09/28/23 09/28/23 10/06/23 History capsule,biphase delayed release (Dexilant) famotidine 40 mg tablet 40 mg PO BEDTIME 09/28/23 09/28/23 10/05/23 History hydrochlorothiazide 25 mg tablet 25 mg PO QAM 09/28/23 09/28/23 10/05/23 History nifedipine 30 mg tablet,extended 30 mg PO BEDTIME 09/28/23 09/28/23 10/05/23 History release nystatin 100,000 unit/mL oral 10 ml buccal TID PRN thrush 09/28/23 09/28/23 Unknown History suspension umeclidinium 62.5 mcg/actuation 1 inh inhalation QAM 09/28/23 09/28/23 10/06/23 History blister powder for inhalation (Incruse Ellipta) Exam Exam Date and Time: October 06, 2023 0830 Height,Weight and Vital Signs: Height 5 ft 3 in Weight 54.885 kg Last Vital Signs Pulse 89 09/28/23 13:19 Resp 20 09/28/23 13:19 BP 126/70 09/28/23 13:19 Pulse Ox 98 09/28/23 13:19 O2 Del Method Room Air 09/28/23 13:19 Height 5 ft 3 in Weight 54.885 kg Vital Signs Pulse Rate 89 09/28/23 13:19 Respiratory Rate 20 09/28/23 13:19 Blood Pressure 126/70 09/28/23 13:19 Pulse Oximetry 98 09/28/23 13:19 Oxygen Delivery Method Room Air 09/28/23 13:19 Temperature 97.6 F 01/05/24 07:37 Pulse Rate 86 10/06/23 07:37 Respiratory Rate 16 10/06/23 07:37 Blood Pressure 124/71 10/06/23 07:37 Pulse Oximetry 95 10/06/23 07:37 Oxygen Delivery Method Room Air 10/06/23 07:37 Airway Mallampati Class: I TM Dist: >3cm Neck ROM: Full Denture: Upper and Lower Heart: S1S2 Assessment and Plan Assessment Anesthesia Assessment: Anesthesia Plan Discussed and Chart Reviewed Final Anesthetic Review Family History of Problems with Anesthesia: No History of Problems with Anesthesia: Yes (PONV) NPO: Yes ASA Class: III Final Preanesthetic Review: No Changes in Pt Med Stat, Meds/Allgs Chart Reviewed, Consent Obtained/Reviewed and Anes Risks/Benef Reviewed Patient Risk: High Procedure Risk: Intermediate Anesthetic Plan Anesthetic Plan: GA and Agree w/ Assess. and Plan Disposition: Standard PACU
--- NOTE | 2023-10-06 11:17 | W.PM.OPN ---
Operative Note Operative Note Date of Service: 10/06/23 Narrative: Preoperative diagnosis; History of renal cell carcinoma, right middle lobe lung mass/lesion Postop diagnosis: [] Same Procedure [] bronchoscopy, VATS right middle lobe wedge resection,pneumonolysis, intercostal nerve block with Exparel Surgeon: [] Sharif Inclusion Specialist: [] Balwinder Type of Anesthesia: [] Double-lumen general Indication for surgery: [] Bronchoscopy demonstrated no gross endoluminal pathology. It Was also used to assist anesthesia in the placement of a double-lumen tube. Intrathoracic findings demonstrated significant soft adhesions of the upper and middle lobes to the costal and mediastinal surfaces necessitating adhesion takedown. An isolated right centrally located middle lobe lung lesion was identified and underwent uneventfully wedge resection. Sent to pathology for permanent evaluation. No other gross intrathoracic pathology demonstrated. Findings: [] Patient brought to the operating room, placed drop table supine position, after adequate level of double-lumen general anesthesia was induced, patient underwent bronchoscopy with findings as noted above. Patient was then placed in left lateral decubitus position. Right chest was prepped and draped in usual sterile fashion. Using anterior and posterior axillary line 6th intercostal space ports placed under direct vision and a small axillary access incision carried the, subcutaneous tissue, chest wound protector placed, the findings were as noted. Soft adhesions of the upper lobe and middle lobe to the mediastinal and costal services were taken down using scissors and Bovie and once the lung was adequately mobilized, digital palpation through the access incision demonstrated the centrally located middle lobe lesion. Using a combination of DENIZ and TA staplers, this lesion was uneventfully wedged ou and sent to pathology for permanent evaluation. Chest cavity was filled with saline and remaining lung expanded with no significant air leak demonstrated, staple line was pneumo- static. Through the anterior port, 28 Czech chest tube was advanced toward the apex. This was secured the skin using single 2-0 silk suture. Wounds were closed in the following manner; access incision had a single over and over 2. Vicryl To reapproximate the rib space. Chest wall musculature was closed running 2. Vicryl suture. Running deep dermal 2-0 Vicryl suture followed by running subcuticular 4-0 Vicryl sutures were placed. Port sites were closed using deep followed by dermal interrupted 2-0 and 3-0 Vicryl sutures respectively. Intercostal nerve block was performed at access incision and port sites. Sponge, needle, instrument counts reported correct. Patient tolerated the procedure well and emerged anesthesia stable condition. EBL minimal Postprocedure chest x-ray pending
--- NOTE | 2023-10-06 11:44 | PHA.MEDREC ---
Pharmacy Consult ? Medication Reconciliation Pharmacy has completed the medication reconciliation. Reviewed med rec done by nursing
[2023-10-07] VITALS (7 sets, daily range): BP systolic 114–147; BP diastolic 56–66; PULSE 76–92; RESP 15–20; TEMP 36.2–36.6; O2SAT 92–98; BMI 24.6
--- NOTE | 2023-10-07 08:02 | PC.NURSE ---
Pt alert and oriented x4, VSS as noted. She was medicated for pain @ R posterior chest radiating to R shoulder wtih + as noted in NOV. CT patent and draining sanguanous drainage as was noted upon arrival from post op. System intact with no crepitus or air leak. R axilla dressing c/d/i with hematoma noted on arrival to unit unchanged overnight. Pt unable to void. this am bladder scanned for 607cc. Dr. Olguin's service called x2 and awaiting callback. pt in no distress at this time and states that she thinks having breakfast/coffee will help.
[2023-10-07 09:04] LABS: Anion Gap 10 (12-20); Blood Urea Nitrogen 6 mg/dL (9-16); Calcium 8.6 mg/dL (8.4-10.2); Carbon Dioxide 32 mmol/L (22-29); Chloride 94 mmol/L (96-108); Creatinine Clr Calc Pharmacy 75.1; Estimated Glomerular Filt Rate > 60; Glucose Random 105 mg/dL (60-115); Potassium 3.9 mmol/L (3.3-5.1); Sodium 132 mmol/L (135-145)
--- NOTE | 2023-10-07 13:11 | MHC.CM.PN ---
IMM 10/07. Pt lives at home with her , mentally challenged brother, and her sister. Pt has a cane and rollater walker. Pts will transport her home. Pt is interested in home services for a short period of time after D/C, particularly someone to help clean, will put [facility] referral in. Pt would also like to do a HCP on another day when she is not as tired. PCP: Dr. Dominic Lin
--- NOTE | 2023-10-07 13:21 | HO.POSTANES ---
Post Anesthesia Evaluation Post Anesthesia Evaluation Date of Service: 10/06/23 Vital Signs: Vital Signs Temp Pulse Resp BP Pulse Ox O2 Del Method O2 Flow Rate 10/07/23 11:43 97.2 F 92 20 114/61 92 Nasal Cannula 3 10/07/23 07:45 97.4 F 82 18 129/62 94 Nasal Cannula 3 10/07/23 04:44 97.2 F 83 16 147/66 H 96 Nasal Cannula 3 Anesthesia: General Endotracheal-GETA Mental Status: Awake Pain Control: Satisfactory Nausea/Vomiting: None Hydration: Adequate Anesthesia-Related Issues: No Anes. Related Issues
--- NOTE | 2023-10-07 15:12 | PM.PNTS ---
Subjective Subjective Date of Service: 10/07/23 Interval history: Planning of incisional discomfort which is improving. No respiratory issues. Using incentive spirometry. Patient has been out of bed to chair. Chest tube minimal output with no air leak. Chest x-ray demonstrates no acute disease. Physical Exam Vital Signs: Vital Signs: Last Vital Signs Temp 97.2 F 10/07/23 11:43 Pulse 92 10/07/23 11:43 Resp 20 10/07/23 11:43 BP 114/61 10/07/23 11:43 Pulse Ox 92 10/07/23 11:43 O2 Del Method Nasal Cannula 10/07/23 11:43 O2 Flow Rate 3 10/07/23 11:43 BMI result Body Mass Index 24.6 Chest: Other: Chest dressing clean dry and intact. Pleur-Evac no air leak with minimal output serosanguineous. Procedures Date of Service Date of Service: 10/07/23 Progress Note: A&P Assessment and plan (1) Pulmonary nodule 1 cm or greater in diameter: Status: Acute Plan Continue out of bed, incentive spirometry, diet as tolerated, pain control, a.m. chest x-ray. Time Spent With Patient Time: Total time managing care of this patient today ____ minutes. Quality Stroke Does the patient have a stroke diagnosis?: No VTE Prior VTE?: No VTE Risk Level:: Surgical - high VTE Device Contraindication: N/A - Device Ordered VTE Drug Contraindication: N/A - Med Ordered
[2023-10-08] VITALS (9 sets, daily range): BP systolic 114–135; BP diastolic 52–65; PULSE 74–97; RESP 16–20; TEMP 36.1–37.1; O2SAT 91–98
--- NOTE | 2023-10-08 17:53 | PM.PNGS ---
Subjective Subjective Date of Service: 10/08/23 Interval history: patient is doing well feels good still with some pain but feeling better than she did yesterday Physical Exam Vital Signs: Vital Signs: Last Vital Signs Temp 98.2 F 10/08/23 15:36 Pulse 89 10/08/23 15:36 Resp 20 10/08/23 15:36 BP 129/62 10/08/23 15:36 Pulse Ox 93 10/08/23 15:36 O2 Del Method Nasal Cannula 10/08/23 15:36 O2 Flow Rate 3 10/08/23 15:36 BMI result Body Mass Index 24.6 Const: General: cooperative, healthy appearing, comfortable and no acute distress Resp: Other: good air entry in the upper lungs will decrease on the lower area on the right side chest tube without any leak 230 cc of serosanguineous fluid from the chest tube patient is in the low to mid 90s on 3 L of nasal cannula Objective Data Active Medications Al Hydroxide/Mg Hydroxide (Magnesium Hydrox/Alum Hydrox 30 Ml Oral.Susp) 30 ml PO Q4H PRN PRN Reason: Heartburn/Nausea Albuterol Sulfate (Albuterol Sulfate 90 Mcg 8 Gm Inhaler) 2 puff INHALE QID PRN PRN Reason: shortness of breath or wheezing Albuterol/Ipratropium (Albuterol/Iprat 2.5/0.5mg 3 Ml Ampul.Neb) 3 ml INHALE Q6H PRN PRN Reason: shortness of breath or wheezing Amitriptyline HCl (Amitriptyline Hcl 25 Mg Tablet) 75 mg PO BEDTIME [facility] Last Admin: 10/07/23 20:34 Dose: 75 mg Documented By: PATRICK Atorvastatin Calcium (Atorvastatin Calcium 10 Mg Tablet) 10 mg PO DAILY [facility] Last Admin: 10/08/23 09:20 Dose: 10 mg Documented By: TOBY Bupropion HCl (Bupropion Hcl Xl 150 Mg Tab.Er.24h) 150 mg PO DAILY [facility] Last Admin: 10/08/23 09:20 Dose: 150 mg Documented By: TOBY Clonazepam (Clonazepam 0.5 Mg Tablet) 0.5 mg PO TID PRN PRN Reason: anxiety Docusate Sodium (Docusate Sodium 100 Mg Capsule) 100 mg PO BID [facility] Last Admin: 10/08/23 09:20 Dose: 100 mg Documented By: TOBY Famotidine (Famotidine 20 Mg Tablet) 40 mg PO BEDTIME [facility] Last Admin: 10/07/23 20:36 Dose: 40 mg Documented By: PATRICK Fentanyl (Fentanyl Citrate/Pf 100 Mcg/2 Ml Vial) 25 mcg IVPUSH Q10M PRN; Protocol PRN Reason: Pain, Severe (Pain Scale 7-10) Last Admin: 10/06/23 13:36 Dose: 25 mcg Documented By: ROBIN Fluticasone Propionate (Fluticasone Propionate 250 Mcg Blst.W.Dev) 2 puff INHALE RBID [facility] Last Admin: 10/08/23 11:41 Dose: 2 puff Documented By: MORENO Gabapentin (Gabapentin 400 Mg Capsule) 400 mg PO TID [facility] Last Admin: 10/08/23 15:30 Dose: 400 mg Documented By: TOBY Heparin Sodium (Porcine) (Heparin Sodium,Porcine 5,000 Unit/Ml Vial) 5,000 unit SUBCUT Q8H [facility] Last Admin: 10/08/23 12:24 Dose: 5,000 unit Documented By: TOBY Hydrochlorothiazide (Hydrochlorothiazide 25 Mg Tablet) 25 mg PO DAILY [facility]; Protocol Last Admin: 10/08/23 09:20 Dose: 25 mg Documented By: TOBY Hydromorphone HCl (Hydromorphone Hcl 1 Mg/Ml Syringe) 0.5 mg IVPUSH Q4H PRN; Protocol PRN Reason: Pain, Severe (Pain Scale 7-10) Last Admin: 10/07/23 17:35 Dose: 0.5 mg Documented By: TOBY Acetaminophen (Ofirmev) 1,000 mg in 100 mls @ 400 mls/hr IV Q6H [facility] Last Admin: 10/08/23 17:46 Dose: Not Given Documented By: TOBY Non-Admin Reason: reached dose Melatonin (Melatonin 3 Mg Tablet) 6 mg PO BEDTIME PRN PRN Reason: Insomnia Last Admin: 10/06/23 21:22 Dose: 6 mg Documented By: PATRICK Nifedipine (Nifedipine Er 30 Mg Tab.Er.24) 30 mg PO BEDTIME [facility] Last Admin: 10/07/23 20:36 Dose: 30 mg Documented By: HO.ARMSTRH Ondansetron HCl (Ondansetron Hcl 4 Mg/2 Ml Vial) 4 mg IVPUSH Q8H PRN PRN Reason: Nausea and Vomiting Oxycodone HCl (Oxycodone Hcl Immed Release 5 Mg Tablet) 5 mg PO Q4H PRN PRN Reason: Pain, Moderate(Pain Scale 4-6) Last Admin: 10/08/23 13:26 Dose: 5 mg Documented By: TOBY Oxycodone HCl (Oxycodone Hcl Immed Release 5 Mg Tablet) 10 mg PO Q4H PRN PRN Reason: Pain, Severe (Pain Scale 7-10) Last Admin: 10/08/23 17:43 Dose: 10 mg Documented By: TOBY Sodium Chloride (0.9 % Sodium Chloride Flush 3 Ml Syringe) 3 ml IVFLUSH [facility] Last Admin: 10/08/23 15:31 Dose: Not Given Documented By: TOBY Non-Admin Reason: Previously Administered Sodium Chloride (0.9 % Sodium Chloride Flush 3 Ml Syringe) 3 ml IVFLUSH [facility] Last Admin: 10/08/23 15:31 Dose: Not Given Documented By: TOBY Non-Admin Reason: Previously Administered Tiotropium [place] (Tiotropium [place] 2.5 Mcg 1 Puff/2.5 Mcg Mist.Inhal) 1 puff INHALE RDAILY [facility] Last Admin: 10/08/23 11:41 Dose: 1 puff Documented By: MORENO Vitamin D (Cholecalciferol (Vitamin D3) 25 Mcg Tablet) 50 mcg PO DAILY [facility] Last Admin: 10/08/23 09:20 Dose: 50 mcg Documented By: TOBY Labs 10/07/23 07:35 10/07/23 07:35 Imaging Chest x-ray: Radiologist's impression: Impressions Chest X-Ray 10/08/23 07:35 IMPRESSION: * The right thoracostomy tube is in stable position. No pneumothorax. * The hazy opacity/atelectasis in the right perihilar region is similar in appearance compared to 10/07/2023. Procedures Date of Service Date of Service: 10/08/23 Progress Note: A&P Assessment and plan (1) Pulmonary nodule 1 cm or greater in diameter: Status: Acute Assessment and Plan: patient is postop day 2 status post VATS procedure right lung doing well. Patient was baseline COPD issues and still on oxygen. Chest x-ray stable. No air leak is noted but there is still some drainage of serosanguineous fluid in the last 24 hours. Plan to continue course with chest tube re-evaluate tomorrow. Time Spent With Patient Time: Total time managing care of this patient today ____ minutes. Quality Stroke Does the patient have a stroke diagnosis?: No VTE Prior VTE?: No VTE Risk Level:: Surgical - high VTE Device Contraindication: N/A - Device Ordered VTE Drug Contraindication: N/A - Med Ordered
--- NOTE | 2023-10-08 18:10 | PC.NURSE ---
Patient is A&Ox4, neurologically intact. LUTZ to command 5/5 sensation intact, +pp bilat no edema noted. LS clear left, right side dim denies shortness of breath of chest pain, remains on 2L oxygen via nasal cannula mid 90's. Desats into 70's when off oxygen. Pt utilizing IS up to 1500 every hour while awake. Right chest tube with minimal sanguineous drainage during shift. No crepitus noted to site. Late am while out of bed to commode chest tube site leaking small amount of serosang drainage from site. Again in afternoon with more leakage from site saturating tape and dressing. Sutures intact to tube site dressing changed, no air leak noted to chest tube. Surgery on unit to see patient aware of incident and surgical sites assessed. Medicated with oxycodone with good effect for pain throughout shift. Voiding without difficulty utilizing bedside commode. Will continue to monitor and report changes
[2023-10-09 08:00] VITALS: BP 137/68; PULSE 98; RESP 18; TEMP 36.4; O2SAT 75
[2023-10-09 08:11] VITALS: PULSE 105; RESP 18; O2SAT 73
--- NOTE | 2023-10-09 11:30 | PM.PNTS ---
Subjective Subjective Date of Service: 10/09/23 Interval history: Feels overall better, pain controlled on oral analgesics. Tolerating diet, OOB without difficulty. Was SOB with oxygen off this am. Wants to go home. Physical Exam Vital Signs: Vital Signs: Last Vital Signs Temp 97.6 F 10/09/23 08:00 Pulse 105 H 10/09/23 08:11 Resp 18 10/09/23 08:11 BP 137/68 10/09/23 08:00 Pulse Ox 75 L 10/09/23 08:00 O2 Del Method Nasal Cannula 10/09/23 08:00 O2 Flow Rate 3 10/09/23 08:00 BMI result Body Mass Index 24.6 Const: General: comfortable, no acute distress and alert Orientation/consciousness: patient oriented x3 Chest: Other: right thorascopy incisions clean and dry, she does have extensive ecchymosis extending to the breast, sites are tender Resp: Effort & Inspection: normal respiratory effort and no respiratory distress Skin: General skin exam: no rashes or lesions noted Neuro: General: patient oriented x3 and moves all extremities Procedures Date of Service Date of Service: 10/09/23 Progress Note: A&P Assessment and plan (1) Pulmonary nodule 1 cm or greater in diameter: Status: Acute Plan POD #3 s/p bronchoscopy, VATS right middle lobe wedge resection,pneumonolysis, intercostal nerve block with Exparel. Doing well overall. Chest tube in place to water seal, no air leak. CXR shows no pneumo. Chest tube removed uneventfully. Will repeat CXR in 1hr. Home O2 eval for hypoxia off supplemental O2, symptomatic. Possible home later today if CXR ok and able to arrange VNA, oxygen therapy. Patient comfortable with plan. Time Spent With Patient Time: Total time managing care of this patient today ____ minutes. Quality Stroke Does the patient have a stroke diagnosis?: No VTE Prior VTE?: No VTE Risk Level:: Surgical - high VTE Device Contraindication: N/A - Device Ordered VTE Drug Contraindication: N/A - Med Ordered
[2023-10-09 11:31] VITALS: BP 119/64; PULSE 99; RESP 19; TEMP 36.3; O2SAT 96
--- NOTE | 2023-10-09 13:38 | MHC.CM.PN ---
CM met with pt. to ask if she would be accepting of VNA services. She said she would be, referrals out and accepted with [facility]. RIGOBERTO to follow and assist with any further DC needs.
[2023-10-09 14:01] VITALS: PULSE 105; PULSE 118; PULSE 120; PULSE 99; O2SAT 73; O2SAT 84; O2SAT 86; O2SAT 92
[2023-10-09 15:23] VITALS: BP 124/65; PULSE 98; RESP 18; TEMP 36.2; O2SAT 97
--- NOTE | 2023-10-10 12:37 | PM.DS ---
DS: Providers Provider Date of Service: 10/09/23 Date of admission: 10/06/23 11:11 Date of discharge: 10/09/23 Primary care physician: Dominic Lin MD Attending physician on admission: Delroy Olguin Attending physician on discharge: Delroy Olguin DS: Diagnosis Discharge Diagnosis (1) Pulmonary nodule 1 cm or greater in diameter: Status: Acute DS: Summary Hospital Course Hospital Course: HPI AT ADMISSION: Patient presents here for evaluation of right lung nodules on surveillance CT scan followed by PET scan clots demonstrate the lesions in question. Patient had a left nephrectomy for renal cell carcinoma on 03/21. She has done reasonably well since then. Patient has a significant smoking history in the past. She discontinued smoking in 2000. She does occasionally vape. Patient denies any significant weight loss, and NG loss or diminished appetite. Patient has no chronic respiratory symptoms. She denies any cough, hemoptysis, chest pain, wheezing. Chart was reviewed patient evaluated. Pulmonary function tests were reviewed and were quite good. HOSPITAL COURSE: On 10/06/23, a bronchoscopy, VATS right middle lobe wedge resection,pneumonolysis, intercostal nerve block with Exparel was performed by Dr. Olguin without complication. The patient tolerated the procedure well and was admitted to the medical-telemetry floor for observation. She had an uncomplicated recovery course. On POD #1, she had better control of her incisional pain. Her chest tube had serosanguineous output without air leak. CXR revealed no acute disease. She was ambulated and used the incentive spirometer. She continued to do well without air leak and no acute disease on CXR with minimal chest tube output the following day and it was therefore put to water seal. F/u CXR the following day continued to reveal no acute disease without significant chest tube output and it was therefore removed and occlusive dressing was placed. She remained on supplemental oxygen and became hypoxic without this. Home O2 eval was obtained and home supplemental oxygen was arranged. She felt overall well with good pain control. Her incision was clean but did have a significant amount of surrounding ecchymosis with stable H/H. She was tolerating a solid diet. She felt ready for discharge to home. She was discharged on POD #3 in stable condition with VNA services for chest tube site dressing changes and on home O2. She is to follow up with her PCP upon discharge and with Dr. Olguin in 1 week. Status at Discharge Functional status at discharge: independent ambulation Overall status at discharge: patient is progressing back to baseline Time Attestation Discharge coordination time: Greater than 30 minutes Quality: Safe Use of Opioids Does Pt have an Active Cancer Diagnosis on the Problem List?: No Quality: Stroke Does the patient have a stroke diagnosis?: No Physical Exam Vital Signs: Vital Signs: Last Vital Signs Temp 97.1 F 10/09/23 15:23 Pulse 98 10/09/23 15:23 Resp 18 10/09/23 15:23 BP 124/65 10/09/23 15:23 Pulse Ox 97 10/09/23 15:23 O2 Del Method Nasal Cannula 10/09/23 15:23 O2 Flow Rate 3 10/09/23 15:23 BMI result Body Mass Index 24.6 Const: General: comfortable, no acute distress and alert Orientation/consciousness: patient oriented x3 Chest: Other: chest tube site clean, scant drainage right VATS incisions clean, she does have a large amount of ecchymosis that extends into the inferior portion of her right breast and posteriorly to her back Resp: Effort & Inspection: normal respiratory effort and no respiratory distress Skin: General skin exam: no rashes or lesions noted and no jaundice Neuro: General: patient oriented x3 and moves all extremities DS: Data Data Completed and Pending Pending studies at discharge: Pending at discharge 10/06/23 11:24 Surgical [PTH] Routine Labs on day of discharge: Laboratory Results - last 24 hr 10/09/23 12:58 Hgb 9.6 L Hct 30.0 L Discharge Plan Discharge Anticipated Discharge Date/Time: 10/09/23 15:08 Patient Disposition: Home Health Service Discharge Diagnosis: s/p VATS, right wegde resection Referrals: Dominic Lin MD [Primary Care Provider] - 1 Week Delory Olguin MD [Physician] - 1 Week Discharge Medications: Continued betamethasone dipropionate 0.05 % cream 1 appl topical BID PRN (Reason: skin irritation) Qty: 45 0RF mometasone 0.1 % cream See Rx Instructions topical BID PRN (Reason: rash) 30 Days Qty: 45 0RF Rx Instructions: apply to affected areas topical 2 times a day PRN; gabapentin 400 mg capsule 400 mg PO TID 90 Days Qty: 270 1RF cholecalciferol (vitamin D3) 50 mcg (2,000 unit) capsule 50 mcg PO DAILY 90 Days Qty: 90 3RF nystatin 100,000 unit/mL suspension 10 ml buccal TID PRN (Reason: thrush) Rx Instructions: swish 1/2 of dose in each side of the mouth for up to 5 minutes, then spit out the medicine atorvastatin 10 mg tablet 10 mg PO DAILY amitriptyline 75 mg tablet 75 mg PO BEDTIME famotidine 40 mg tablet 40 mg PO BEDTIME nifedipine 30 mg tablet extended release 30 mg PO BEDTIME hydrochlorothiazide 25 mg tablet 25 mg PO DAILY dexlansoprazole [Dexilant] 60 mg capsule,biphase delayed releas 60 mg PO DAILY@1200 Rx Instructions: takes at 12 noon Incruse Ellipta 62.5 mcg/actuation blister with device 1 inh inhalation DAILY bupropion HCl 150 mg tablet extended release 24 hr 150 mg PO DAILY clonazepam 0.5 mg tablet 0.5 mg PO TID PRN (Reason: anxiety) 30 Days Qty: 90 0RF oxycodone-acetaminophen 5-325 mg tablet 1 tab PO Q8H PRN (Reason: low back pain) 7 Days Qty: 21 0RF albuterol sulfate 90 mcg/actuation HFA aerosol inhaler 2 puff inhalation QID PRN (Reason: shortness of breath or wheezing) Qty: 8.5 6RF fluticasone propionate [Flovent HFA] 220 mcg/actuation HFA aerosol inhaler 2 puff PO BID Qty: 12 6RF ipratropium-albuterol 0.5 mg-3 mg(2.5 mg base)/3 mL solution for nebulization 3 ml inhalation Q6H PRN (Reason: shortness of breath or wheezing) 30 Days Qty: 180 6RF Discharge Orders: Discharge Order (Routine); Ordered 10/09/23 Ordered By: Delroy Olguin Diet: Advance to usual diet Activity on Discharge: No heavy lifting Stand Alone Forms: Patient Portal Discharge page Activity Restrictions/Additional Instructions: Apply an ice pack for short intervals (20 minutes on, followed by at least 20 minutes off) for the first 2 days. Do not apply heat. Do not use creams, lotions, or topical antibiotics. These can cause infection or allergic reaction. Ok to shower 48 hours after your surgery. You have steri strips (small white cloth strips) covering your incision- these will fall off ~1 week. Chest tube dressing care- change with xeroform and nonwoven sponge followed by tape every other day. Follow up in office with Dr. Olguin in 1 week. ([phone]) No heavy lifting (>10lbs) or strenuous activity! Call Your Doctor If: -Your temperature exceeds 101.5? F -You experience excessive pain or swelling -You have an unexpected reaction to medication -You have excessive bleeding -You experience continued vomiting/nausea -Your incision begins to separate -Your incision shows signs of infection such as increased redness, swelling, excessive pain, drainage (light blood or clear fluid is normal) or heat Care Plan Goals: Return to baseline health and resume normal activities following recovery period. Health Concerns: pulmonary lesion hx of renal cell CA Plan of Treatment: s/p VATS, right wedge resection home oxygen therapy VNA for dressing changes f/u in office Assessment: Improved Discharge Date/Time: 10/09/23 19:02
== END 2023-10-09 19:02 | disposition home health service (06) | DRG 165 ==
LOC: HO.SSSA 11:20 → HO.S3 12:57 → HO.SSSA 14:02 → HO.IMC 18:47
PROVIDERS: Nurse Practitioner; Physician Assistant Surgical; Admitting Provider Surgery; PCP Internal Medicine; Visit Provider Surgery
PROC: 0BNC4ZZ Release Right Upper Lung Lobe, Percutaneous Endoscopic Approach (ICD-10-PCS; principal; 2023-10-06 08:30)
DX: R91.1 Solitary pulmonary nodule (principal); J44.9 Chronic obstructive pulmonary disease, unspecified; Z87.891 Personal history of nicotine dependence; Z85.528 Personal history of other malignant neoplasm of kidney; Z90.5 Acquired absence of kidney; Z79.51 Long term (current) use of inhaled steroids; Z79.899 Other long term (current) drug therapy
CPT/HCPCS: 36415; 71045; 80048; 85014; 85018; 85025; 85027; 86850; 86900; 86901; 88307; 93005; 94640; 99024; A7041; C9290; J0131; J0665; J0736; J1100; J1170; J1644; J1885; J2250; J2371; J2405; J2704; J3010; J7120

== ENCOUNTER → 2023-10-06 11:11 | Outpatient (BNV) | payer OTHER, SELFPAY | PROVIDERS: Admitting Provider Surgery; PCP Internal Medicine; Visit Provider Surgery | DX: R91.1 Solitary pulmonary nodule (principal) | CPT/HCPCS: 32666; 99024 ==

== ENCOUNTER 2023-10-18 13:09 | Outpatient (AMB) | payer OTHER, SELFPAY ==
[2023-10-18 13:14] VITALS: BP 129/62; PULSE 103; BMI 22.1
--- NOTE | 2023-10-18 13:14 | MHC.OFFVIS ---
Intake Vital Signs 10/18/23 13:14 Height 5 ft 2 in Weight 121 lb BMI 22.1 BP 129/62 Blood Pressure Location Rt brachial Position Sitting Pulse 103 H Intake Visit Reasons: S/P bronchoscopy Rt lung biopsy Intake Note: Patient here for s/p bronchoscopy rt lung bx. Patient c/o: feeling down since recent diagnosis of lung ca. 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 Accompanied by: Self / Same As Patient Allergies Sulfa (Sulfonamide Antibiotics) Allergy (Severe, Verified 10/18/23 13:15) ANAPHYLAXIS Penicillins Allergy (Intermediate, Verified 10/18/23 13:15) RASH aspirin [ASA] Adverse Reaction (Severe, Verified 10/18/23 13:15) severe stomach pain NSAIDS (Non-Steroidal Anti-Inflamma Adverse Reaction (Severe, Verified 10/18/23 13:15) severe stomach pain codeine [Codeine] Adverse Reaction (Intermediate, Verified 10/18/23 13:15) NAUSEA & VOMITING HPI HPI Comments History of Present Illness Details Patient presents for postop status post right VATS lung biopsy. She was seen by Oncology yesterday. Pathology consistent with metastatic renal cell carcinoma. Patient has would be expected is quite upset and devastated by this diagnosis. She has no respiratory issues or complaints. She has incisional discomfort which is improving. [facility] Medical History Right lower lobe lung mass Post-operative nausea and vomiting Dry eye COVID-19 COPD (chronic obstructive pulmonary disease) Malignant neoplasm of left kidney Vitamin D deficiency Depression Primary osteoarthritis of knees, bilateral Pure hypercholesterolemia Elevated C-reactive protein (CRP) Palpitations Constipation Obstructive sleep apnea Anxiety Benign essential hypertension Renal cell carcinoma of left kidney Oral thrush Lumbar degenerative disc disease Status post fall Right foot pain Chronic allergic bronchitis GERD (gastroesophageal reflux disease) Surgical History H/O kidney removal Hx of oral surgery Hx of tonsillectomy Pulmonary nodule 1 cm or greater in diameter History of nephrectomy Family History Father Hypertension CVD (cardiovascular disease) Cancer Mother Hypertension Substance abuse Other Mental health problem Social History Household Members: Spouse Household Members Other:: and brother and sister Housing: House Are you a primary field care manager to a significant other at home: No Do you presently have visiting nurse or other home services: No Alcohol intake: never Comment: COUNTS CORRECT Patient Tobacco Use Status: Former Tobacco user Quit Date: 2011 Tobacco use type: Cigarette Cigarette Packs Per Day: 1.5 Years Smoked: 30 e-Cigarette/Vaping Use: Currently Using Second Hand Smoke Exposure: Yes service: No Current occupational status: disabled Cognitive needs: No Hearing needs: No Vision needs: No Physical Exam Vital Signs: Last Vital Signs Pulse 103 H 10/18/23 13:14 BP 129/62 10/18/23 13:14 BMI result Body Mass Index 22.1 Chest Other: Chest breath sounds bilaterally. All wounds clean dry and intact healing uneventfully. Resolving ecchymosis. Assessment & Plan Assessment & Plan (1) Metastatic renal cell carcinoma to lung: Code(s): C78.00 - Secondary malignant neoplasm of unspecified lung; C64.9 - Malignant neoplasm of unspecified kidney, except renal pelvis Plan From a surgical perspective, patient is doing well. She is being seen by Oncology again next week. My recommendation would be to wait at least 4-6 weeks post surgery to commence chemotherapy to allow healing of surgical wounds. Patient will also mentioned this to her oncologist. She has been given local instructions, and will follow-up p.r.n.. Should she require a Port-A-Cath, patient has been instructed to call the office. All questions answered Coding Level of Care Code Global (55118) Diagnoses Metastatic renal cell carcinoma to lung C78.00; C64.9
== END 2023-10-18 13:26 | disposition home or self-care (01) ==
PROVIDERS: PCP Internal Medicine; Visit Provider Surgery
DX: C78.00 Secondary malignant neoplasm of unspecified lung (principal); C64.9 Malignant neoplasm of unspecified kidney, except renal pelvis
CPT/HCPCS: 99024

== ENCOUNTER → 2023-10-18 13:09 | Outpatient (BNVA) | payer OTHER, SELFPAY | PROVIDERS: PCP Internal Medicine; Visit Provider Surgery | DX: C64.9 Malignant neoplasm of unspecified kidney, except renal pelvis (principal); C78.01 Secondary malignant neoplasm of right lung; Z98.890 Other specified postprocedural states | CPT/HCPCS: 99212 ==

== ENCOUNTER 2023-10-24 13:01 | Outpatient (REF) | payer OTHER, SELFPAY ==
--- NOTE | ~2023-10-24 | MR_ITS ---
EXAMINATION: MR ABDOMEN WITHOUT AND WITH CONTRAST CLINICAL INFORMATION: Liver lesion seen on PET/CT COMPARISON: Previous head CT September [address] of the abdomen since November 2020 TECHNIQUE: MR abdomen was performed without and with use of 5 mL intravenous Gadavist gadolinium contrast. Postcontrast images are performed in multiphase dynamic sequences. Imaging was performed in 3 planes. FINDINGS: LUNG BASES: There is a nodule in the central posterior left lower lobe near the pulmonary hilum, question left lower lobe pulmonary nodule versus a hilar lymph node. There is a smaller left lower lobe pulmonary nodule measuring 6 mm, example coronal postcontrast image 10 series 10. There is abnormal signal in the anterior right chest near the mediastinum for example localizer image 10 and 17 series 1, coronal T2 images 19 3 and sagittal T2 images 27-30 series 5. This is new compared to prior PET/CT September 2023. Follow-up chest CT considered. LIVER, GALLBLADDER, AND BILIARY TREE: The liver is normal in size, shape and signal. There is a 4.4 x 5.3 cm lesion in the dome of the right lobe. This is low signal on T1 sequences. This heterogeneous and bright on T2 weighted sequences. This demonstrates heterogeneous predominately peripheral enhancement. This remains enhanced with respect to the liver on all sequences. Central nonenhancing area may represent cystic change or necrosis. This is a new finding compared to previous scan of the abdomen November 2020. No other focal liver lesion. Normal gallbladder. No biliary duct dilatation. PANCREAS: Unremarkable. SPLEEN: Normal. ADRENAL GLANDS: Normal. KIDNEYS AND URETERS: The left kidney is been removed. The right kidney is normal. GASTROINTESTINAL TRACT: No bowel obstruction. Stool throughout the colon suggestive of constipation.. No ascites or fluid collection. ABDOMINAL WALL: No significant hernia is appreciated. LYMPH NODES: No lymphadenopathy. VASCULAR: Atherosclerotic disease of the aorta. No aneurysm. Vascular structures are otherwise normal IVC, left renal vein and hepatic and portal veins are patent. OSSEOUS STRUCTURES: Marrow signal normal. Mild scoliosis. No fracture or suspicious bone lesion MR/MR abdomen wo/w con IMPRESSION: New 4.4 x 5.3 cm lesion high in the dome of the right lobe of the liver concerning for neoplasm. Differential would include infection/abscess. Abnormal chest findings. Follow-up chest CT recommended. Findings will be communicated by the [facility]
[2023-10-24] MEDS: gadobutroL 7.5 ML VIAL IVPUSH (14:13)
== END 2023-10-24 13:02 | disposition home or self-care (01) ==
LOC: HO.MRI 13:01
PROVIDERS: PCP Internal Medicine; Visit Provider Internal Medicine
DX: K76.9 Liver disease, unspecified (principal)
CPT/HCPCS: 74183; A9585

== ENCOUNTER → 2023-10-24 14:00 | Outpatient (BNV) | payer OTHER, SELFPAY | PROVIDERS: PCP Internal Medicine; Visit Provider Internal Medicine Medical Oncology | DX: C64.2 Malignant neoplasm of left kidney, except renal pelvis (principal) | CPT/HCPCS: 99204; 99213; 99214 ==

== ENCOUNTER 2023-10-26 | Outpatient (REF) | payer OTHER, SELFPAY | END 2023-10-26 00:01 | disposition home or self-care (01) | LOC: CF | PROVIDERS: Visit Provider Internal Medicine Pulmonary Disease | DX: J44.9 Chronic obstructive pulmonary disease, unspecified (principal); R91.8 Other nonspecific abnormal finding of lung field | CPT/HCPCS: 99212 ==

== ENCOUNTER 2023-10-26 13:50 | Outpatient (AMB) | payer OTHER, SELFPAY ==
--- NOTE | 2023-10-26 13:56 | A.OFFVIS_ITS ---
Intake Vital Signs 10/26/23 13:57 Weight 121 lb 4.068 oz BP 130/64 Blood Pressure Location Lt brachial Position Sitting Pulse 104 H Pulse Source Pulse Oximeter Pulse Oximetry (%) 95 Oxygen Delivery Method Room Air Intake Visit Reasons: Review PET scan results Allergies Sulfa (Sulfonamide Antibiotics) Allergy (Severe, Verified 10/26/23 14:02) ANAPHYLAXIS Penicillins Allergy (Intermediate, Verified 10/26/23 14:02) RASH aspirin [ASA] Adverse Reaction (Severe, Verified 10/26/23 14:02) severe stomach pain NSAIDS (Non-Steroidal Anti-Inflamma Adverse Reaction (Severe, Verified 10/26/23 14:02) severe stomach pain codeine [Codeine] Adverse Reaction (Intermediate, Verified 10/26/23 14:02) NAUSEA & VOMITING Medication List - Last Reconciled 10/26/23 by Priscilla Fisher LPN albuterol sulfate 90 mcg/actuation 2 puffs inhalation QID PRN amitriptyline 75 mg PO BEDTIME atorvastatin 10 mg PO DAILY betamethasone dipropionate 0.05% 1 appl topical BID PRN bupropion HCl 150 mg PO DAILY cholecalciferol (vitamin D3) 50 mcg PO DAILY 90 days clonazepam 0.5 mg PO TID PRN 30 days dexlansoprazole (Dexilant) 60 mg PO DAILY@1200 famotidine 40 mg PO BEDTIME fluticasone propionate 220 mcg/actuation (Flovent HFA) 2 puffs PO BID gabapentin 400 mg PO TID 90 days hydrochlorothiazide 25 mg PO DAILY ipratropium-albuterol 0.5 mg-3 mg(2.5 mg base)/3 mL 3 mL inhalation Q6H PRN 30 days lenvatinib 20 mg PO DAILY mometasone 0.1% apply to affected areas topical 2 times a day PRN; 30 days nifedipine ER 30 mg PO BEDTIME nystatin 10 mL buccal TID PRN oxycodone-acetaminophen 5-325 mg 1 tab PO Q8H PRN 7 days umeclidinium 62.5 mcg/actuation (Incruse Ellipta) 1 inh inhalation DAILY HPI Review PET scan results HPI Details 68-year-old lady, former 30+ pack-year s moker, quit 2011 now uses vaping devices followed for bronchiectasis, abnormal chest imaging, and emphysema.? Her symptoms baseline are well controlled on Incruse, Flovent, and duo nebs.? After the last office visit patient had follow-up CT chest with increasing pulmonary nodules. PET/CT demonstrate activity in the right-sided 1 cm nodule. Patient was referred to thoracic surgery and excisional biopsy was performed that demonstrated metastatic renal cancer. Patient is currently under oncology care with plans for chemotherapy. She denies exacerbations of her underlying respiratory symptoms. FOR[facility]LY [facility] Medical History Right lower lobe lung mass Post-operative nausea and vomiting Dry eye COVID-19 COPD (chronic obstructive pulmonary disease) Malignant neoplasm of left kidney Vitamin D deficiency Depression Primary osteoarthritis of knees, bilateral Pure hypercholesterolemia Elevated C-reactive protein (CRP) Palpitations Constipation Obstructive sleep apnea Anxiety Benign essential hypertension Renal cell carcinoma of left kidney Oral thrush Lumbar degenerative disc disease Status post fall Right foot pain Chronic allergic bronchitis GERD (gastroesophageal reflux disease) Surgical History H/O kidney removal Hx of oral surgery Hx of tonsillectomy Pulmonary nodule 1 cm or greater in diameter History of nephrectomy Family History Father Hypertension CVD (cardiovascular disease) Cancer Mother Hypertension Substance abuse Other Mental health problem Social History Household Members: Spouse Household Members Other:: and brother and sister Housing: House Are you a primary skin care technician to a significant other at home: No Do you presently have visiting nurse or other home services: No Alcohol intake: never Comment: COUNTS CORRECT Patient Tobacco Use Status: Former Tobacco user Quit Date: 2011 Tobacco use type: Cigarette Cigarette Packs Per Day: 1.5 Years Smoked: 30 e-Cigarette/Vaping Use: Currently Using Second Hand Smoke Exposure: Yes service: No Current occupational status: disabled Cognitive needs: No Hearing needs: No Vision needs: No Review of Systems Const Denies daytime sleepiness, Denies excessive sweating, Denies fatigue, Denies fever(s), Denies lethargy, Denies malaise, Denies night sweats, Denies snoring and Denies weight loss Eyes Denies blurry vision and Denies itchy eyes ENT Denies nasal congestion, Denies post nasal drip, Denies sinus pain, Denies sinus pressure and Denies other ( Thrush) Card Denies chest pain, Denies pedal edema, Denies dyspnea, Denies orthopnea and Denies paroxysmal nocturnal dyspnea Resp Denies cough, Denies hemoptysis, Denies excessive phlegm production, Denies dyspnea, Denies snoring and Denies wheezing GI Denies abdominal pain and Denies heartburn Musc Denies myalgias, Denies arthralgias and Denies joint swelling Skin/Breast Denies rash Neuro Denies memory loss and Denies seizure-like activity Psych Denies abnormal sleep pattern, Denies anxiety and Denies memory loss Endo Denies excessive sweating, Denies fatigue and Denies heat intolerance Ronal/Lymph Denies easy bruising Aller/Immun Denies itchy eyes, Denies seasonal rhinorrhea and Denies wheezing Physical Exam Vital Signs: Last Vital Signs Pulse 104 H 10/26/23 13:57 BP 130/64 10/26/23 13:57 Pulse Ox 95 10/26/23 13:57 Oxygen Delivery Method Room Air 10/26/23 13:57 Const General: no acute distress and alert Nutritional Appearance: not obese Orientation/consciousness: Other orientation findings ( oriented) HEENT Head: Yes atraumatic Eyes General: appearance normal, both eyes and all related structures Sclerae: sclerae normal EOM: EOMs intact bilaterally Neck Neck: Yes supple Lymphatic: no lymphadenopathy noted Resp Effort & Inspection: normal respiratory effort and no use of accessory muscles Auscultation: clear to auscultation bilaterally Cardio Rate: regular rate Rhythm: regular rhythm Heart sounds: no gallops, no murmurs and no rubs Skin General skin exam: other ( warm) Extrem General: No clubbing, No cyanosis and No edema Assessment & Plan Assessment & Plan (1) COPD (chronic obstructive pulmonary disease): Code(s): J44.9 - Chronic obstructive pulmonary disease, unspecified Qualifiers: COPD type: unspecified COPD Qualified Code(s): J44.9 - Chronic obstructive pulmonary disease, unspecified Plan: Well controlled on current regimen of Flovent, duo nebs, Incruse, and albuterol MDI. Continue current regimen. (2) Pulmonary nodules: Code(s): R91.8 - Other nonspecific abnormal finding of lung field Plan: Status post resection of right-sided PET active nodule with pathology demonstrating metastatic renal cancer. Now under oncology care. Coding Level of Care Code Est Pt Level 4 (22666) Diagnoses Chronic obstructive pulmonary disease, unspecified COPD type J44.9 COPD type: unspecified COPD Pulmonary nodules R91.8
[2023-10-26 13:57] VITALS: BP 130/64; PULSE 104; O2SAT 95
== END 2023-10-26 14:17 | disposition home or self-care (01) ==
PROVIDERS: PCP Internal Medicine; Visit Provider Internal Medicine Pulmonary Disease
DX: J44.9 Chronic obstructive pulmonary disease, unspecified (principal); R91.8 Other nonspecific abnormal finding of lung field
CPT/HCPCS: 99214

== ENCOUNTER 2023-11-01 08:34 | Day surgery (SDC) | payer OTHER, SELFPAY ==
--- NOTE | ~2023-11-01 | US_ITS ---
CLINICAL HISTORY: Metastatic renal cell carcinoma. Large right lobe liver mass PROCEDURES: 1. Limited preprocedure ultrasound of the abdomen. Permanent images saved in PACS. 2. Total of 5 core biopsies of the liver mass. 3. Limited post procedure ultrasound of the abdomen. Permanent images taken PACS. CLINICIANS: Otis Abraham PA-C MEDICATIONS: -Versed 1.5 mg, Fentanyl 75 mcg, and lidocaine 1% 10 mL SQ -Antibiotics: None -For additional details, please see nursing flowsheet. COMPLICATIONS: None ESTIMATED BLOOD LOSS: < 5 ml CONTRAST: None SPECIMENS: Total of 5 x 20-gauge biopsies of the liver mass. MODERATE SEDATION TIME: 20 min PROCEDURE NOTE: The procedure, risks, benefits, and alternatives were carefully explained to the patient and written informed consent was obtained. The patient was placed supine on the ultrasound table. A timeout was performed. A limited ultrasound of the abdomen was performed to localize the liver lesion and choose appropriate needle entry and trajectory. The patient was prepped and draped in usual sterile fashion. The skin and subcutaneous tissues were anesthetized with lidocaine. Under ultrasound guidance, a trocar was advanced to the liver lesion. A 20-gauge core biopsy device was inserted through the double wall needle, with the needle tip advanced into the lesion. Position was confirmed with ultrasound evaluation. A total of 5 core biopsies were obtained. 2 Gelfoam torpedoes were inserted through the trocar needle and positioned in the biopsy tract and at the level of the capsule. The needle was then removed. A post procedure ultrasound was then obtained. The patient was stable after the procedure and was transferred to the post anesthesia care unit. The procedure was done under moderate sedation with a dedicated nurse for monitoring of vital signs. US/US biopsy liver Impression: Ultrasound-guided biopsy of liver mass This procedure was performed by Otis Abraham PA-C and supervised by Dr. Partida.
[2023-11-01 09:38] LABS: MANUAL DIFF FLAG NO
[2023-11-01 09:40] LABS: Basophils Absolute Auto 0.1 X10*3/uL (0.0-0.2); Basophils Percent Auto 1.2 % (0-2); Eosinophils Absolute Auto 0.4 X10*3/uL (0.0-0.4); Eosinophils Percent Auto 6.2 % (0-4); Hematocrit 36.8 % (37.0-47.0); Hemoglobin 11.9 g/dl (12.0-16.0); Imm Gran Abs Auto 0.01 X10*3/uL (0.00-0.03); Imm Gran Pct Auto 0.2 % (0.0-0.4); Lymphocytes Percent Auto 17.3 % (20-40); Mean Corpuscular HGB Conc 32.3 g/dl (31.0-35.0); Mean Corpuscular Hemoglobin 26.8 pg (27.0-33.0); Mean Corpuscular Volume 82.9 fL (80.0-98.0); Mean Platelet Volume 8.3 fL (9.4-12.3); Monocytes Absolute Auto 0.6 X10*3/uL (0.1-1.2); Monocytes Percent Auto 10.6 % (2-11); Neutrophils Absolute Auto 3.9 x10*3/uL (2.0-8.3); Neutrophils Percent Auto 64.5 % (45-73); Platelet Count 421 X10*3/uL (160-400); Red Blood Count 4.44 X10*6/uL (4.20-5.50); Red Cell Distribution Width 13.2 % (11.0-16.0)
[2023-11-01 09:49] LABS: Prothrombin Time 12.1 SEC (11.1-13.3)
[2023-11-01 09:51] LABS: Partial Thromboplastin Time 37.1 SEC (26.0-36.8)
[2023-11-01 09:52] VITALS: BMI 22.4
[2023-11-01 09:59] LABS: Alanine Aminotransferase 9 U/L (0-31); Albumin Level 3.9 g/dL (3.5-5.0); Alkaline Phosphatase 132 U/L (39-117); Anion Gap 13 (12-20); Aspartate Amino Transferase 15 U/L (5-31); Bilirubin Total 0.3 mg/dL (0.0-1.0); Blood Urea Nitrogen 6 mg/dL (9-16); Calcium 9.4 mg/dL (8.4-10.2); Carbon Dioxide 31 mmol/L (22-29); Chloride 95 mmol/L (96-108); Creatinine Clr Calc Pharmacy 59.1; Estimated Glomerular Filt Rate > 60; Glucose Fasting 98 mg/dL (60-99); Potassium 3.5 mmol/L (3.3-5.1); Sodium 135 mmol/L (135-145); Total Protein 7.7 g/dL (6.5-8.0)
[2023-11-01] MEDS: Lidocaine HCl 1 % MPF 5 ML VIAL 10 ML SUBCUT (11:12)
[2023-11-01 11:23] VITALS: BP 123/63; PULSE 86; RESP 13; TEMP 36.3; O2SAT 93
[2023-11-01 11:38] VITALS: BP 117/75; PULSE 87; RESP 14; O2SAT 93
[2023-11-01 11:53] VITALS: BP 114/58; PULSE 79; RESP 16; O2SAT 97
[2023-11-01 12:23] VITALS: BP 122/75; PULSE 87; RESP 17; O2SAT 98
[2023-11-01 12:53] VITALS: BP 115/54; PULSE 85; RESP 16; O2SAT 98
== END 2023-11-01 13:50 | disposition home or self-care (01) ==
LOC: HO.SSS 08:36
PROVIDERS: Physician Assistant Surgical; PCP Internal Medicine; Visit Provider Internal Medicine Medical Oncology
DX: C78.7 Secondary malignant neoplasm of liver and intrahepatic bile duct (principal); C64.2 Malignant neoplasm of left kidney, except renal pelvis; K76.9 Liver disease, unspecified; Z90.5 Acquired absence of kidney; J42 Unspecified chronic bronchitis; R91.8 Other nonspecific abnormal finding of lung field; I10 Essential (primary) hypertension; E78.00 Pure hypercholesterolemia, unspecified; G47.33 Obstructive sleep apnea (adult) (pediatric); Z79.51 Long term (current) use of inhaled steroids; Z79.899 Other long term (current) drug therapy; Z88.0 Allergy status to penicillin; Z88.2 Allergy status to sulfonamides; Z88.5 Allergy status to narcotic agent; Z88.8 Allergy status to other drugs, medicaments and biological substances; F17.290 Nicotine dependence, other tobacco product, uncomplicated
CPT/HCPCS: 36415; 47000; 76942; 80053; 85025; 85610; 85730; 86850; 86900; 86901; 88307; 88313; 99152; 99153; 99212; J2250; J2310; J3010

== ENCOUNTER → 2023-11-01 10:19 | Outpatient (BNV) | payer OTHER, SELFPAY | PROVIDERS: PCP Internal Medicine; Visit Provider Student in an Organized Health Care Education/Training Program | DX: K76.9 Liver disease, unspecified (principal); C64.2 Malignant neoplasm of left kidney, except renal pelvis; C78.00 Secondary malignant neoplasm of unspecified lung | CPT/HCPCS: 47000; 76942 ==

== ENCOUNTER 2023-11-06 11:34 | Outpatient (REF) | payer OTHER, SELFPAY ==
--- NOTE | ~2023-11-06 | CT_ITS ---
EXAMINATION: CT CHEST WITH CONTRAST CLINICAL INFORMATION: Renal cell carcinoma, follow-up pulmonary nodules COMPARISON: CT scan of chest on 08/22/2023, MRI of abdomen on 10/24/2023. TECHNIQUE: Multidetector volumetric CT imaging of the chest was obtained after the administration of 65 mL of Omnipaque 350 intravenous contrast without immediate adverse reactions. Axial MIP volume rendering provided. Sagittal and coronal reformatted images were obtained. This CT examination was performed using dose optimization techniques as appropriate, variously including the following: *Automated exposure control *Adjustment of mA and/or kV according to patient size (this includes techniques or standardized protocols for targeted exams where dose is matched to indication/reason for exam; i.e. extremities or head) *Use of iterative reconstruction technique DLP: 103.17 mGy-cm FINDINGS: LUNGS: Persistent centrilobular emphysema is seen in bilateral lungs with upper lobe predominance. Newly developed Wedge-shaped fibrotic scar associated with peripheral high density surgical suture lines is seen obliterating the anterior medial right upper lobe. There is interval mediastinal shift to the right. Scattered reticular nodular densities are seen in right upper lobe apical and posterior segments. More scattered reticulonodular densities are seen along the pleural border of right lower lobe. A spiculated fibrotic scar is seen at posterior lateral corner of left lingular lobe superior segment measuring 1.1 cm in diameter with focal traction bronchiectasis (previously 1.0 cm), series 6 image #113. There is asymmetric elevation of left hemidiaphragm with underlying splenomegaly. -Nodule #1 (Series 6, image 37): 5.7 mm solid nodule, posterior lateral pleural border of right upper lobe apical segment, previously 5.8 mm. -Nodule #2 (Series 6, image 43): 5.9 mm solid nodule, posterior lateral pleural border of right upper lobe apical segment, previously 5.8 mm. -Nodule #3 (Series 6, image 102): 8.2 mm solid nodule, medial border of right middle lobe medial segment, previously 8.7 mm. -Nodule #4 (Series 6, image 109): 5.2 mm solid nodule, posterior pleural border of left lower lobe superior segment, previously 4.1 mm. -Nodule #5 (Series 6, image 124): 3.4 mm solid nodule, right lower lobe posterior basal segment, previously 3.4 mm. -Nodule #6 (Series 6, image 133): 5.1 mm solid nodule, posterior right lower lobe posterior basal segment, previously 5.5 mm. -Nodule #7 (Series 6, image 135): 5.2 mm solid nodule, lateral pleural border of left lower lobe lateral basal segment, previously 5.6 mm. -Nodule #8 (Series 6, image 138): 7.6 mm juxtapleural solid nodule, medial posterior border of right lower lobe posterior basal segment, previously 6.7 mm. -Nodule #6 (Series 6, image 151): 8.1 mm solid nodule, anterior left lower lobe anteromedial basal segment, previously 8.8 mm. PLEURA: No pleural effusion or pneumothorax is seen. PERICARDIUM: No pericardial effusion is seen. MEDIASTINUM AND ANA ROSA: Right precarinal lymph node is seen measuring 0.8 cm in short axis, unchanged. No abnormally enlarged mediastinal or hilar lymph nodes are seen. TRACHEOBRONCHIAL TREE: Trachea and bilateral mainstem bronchi are patent. THORACIC AORTA: The thoracic aorta is normal in size and smoothly patent. CORONARY ARTERY CALCIFICATIONS: Marked PULMONARY ARTERIES: The main pulmonary arteries show normal enhancement. CHEST WALL AND LOWER NECK: The subcutaneous and muscular chest wall are intact with no focal lesion. No abnormal mass lesion could be seen in the visualized lower neck. BONES: There is mild T12-L1 dextroscoliosis. No fracture or dislocation. No focal bone lesion diagnostic of metastatic disease could be seen in the thorax. VISUALIZED UPPER ABDOMEN: Bilateral adrenal glands are not enlarged. A large right hepatic lobe rim enhancing necrotic tumor is seen measuring 6.9 x 5.0 cm in size (4.4 x 5.3 cm on MRI). Spleen is enlarged, but partially visualized. CT/CT chest w IV con IMPRESSION: 1. Newly developed fibrotic scar associated with surgical suture lines in the anterior medial right upper lobe with mediastinal shift to the right. 2. Multiple solid pulmonary nodules as described above. The majority of the nodules are stable in size. 3. Persistent Large necrotic tumor in the right hepatic lobe, previously demonstrated on MRI of abdomen. 4. Unchanged asymmetric elevation of left hemidiaphragm and underlying Splenomegaly. Fleischner guidelines were followed.
[2023-11-06] MEDS: iohexoL 350 MG/ML 75 ML INFUS..BTL 65 ML IV (12:09)
== END 2023-11-06 11:35 | disposition home or self-care (01) ==
LOC: HO.CT 11:34
PROVIDERS: PCP Internal Medicine; Visit Provider Internal Medicine Medical Oncology
DX: C64.2 Malignant neoplasm of left kidney, except renal pelvis (principal)
CPT/HCPCS: 71260; Q9967

== ENCOUNTER 2023-11-09 13:28 | Outpatient (AMB) | payer OTHER, SELFPAY ==
[2023-11-09 14:18] VITALS: PULSE 104; O2SAT 94
--- NOTE | 2023-11-09 14:18 | A.OFFVIS_ITS ---
Intake Vital Signs 11/09/23 14:18 Weight 119 lb 0.794 oz Pulse 104 H Pulse Source Pulse Oximeter Pulse Oximetry (%) 94 Oxygen Delivery Method Room Air Intake Visit Reasons: Conserving trial Allergies Sulfa (Sulfonamide Antibiotics) Allergy (Severe, Verified 11/09/23 14:19) ANAPHYLAXIS Penicillins Allergy (Intermediate, Verified 11/09/23 14:19) RASH aspirin [ASA] Adverse Reaction (Severe, Verified 11/09/23 14:19) severe stomach pain NSAIDS (Non-Steroidal Anti-Inflamma Adverse Reaction (Severe, Verified 11/09/23 14:19) severe stomach pain codeine [Codeine] Adverse Reaction (Intermediate, Verified 11/09/23 14:19) NAUSEA & VOMITING Medication List - Last Reconciled 11/09/23 by Priscilla Fisher LPN albuterol sulfate 90 mcg/actuation 2 puffs inhalation QID PRN amitriptyline 75 mg PO DAILY atorvastatin 10 mg PO DAILY betamethasone dipropionate 0.05% 1 appl topical BID PRN bupropion HCl 150 mg PO DAILY cholecalciferol (vitamin D3) 50 mcg PO DAILY 90 days clonazepam 0.5 mg PO TID PRN 30 days dexlansoprazole (Dexilant) 60 mg PO DAILY@1200 famotidine 40 mg PO BEDTIME fluticasone propionate 220 mcg/actuation (Flovent HFA) 2 puffs PO BID gabapentin 400 mg PO TID 90 days hydrochlorothiazide 25 mg PO DAILY ipratropium-albuterol 0.5 mg-3 mg(2.5 mg base)/3 mL 3 mL inhalation Q6H PRN 30 days lenvatinib 20 mg PO DAILY mometasone 0.1% apply to affected areas topical 2 times a day PRN; 30 days nifedipine ER 30 mg PO BEDTIME nystatin 10 mL buccal TID PRN ondansetron 8 mg PO Q8H oxycodone-acetaminophen 5-325 mg 1 tab PO Q8H PRN 7 days umeclidinium 62.5 mcg/actuation (Incruse Ellipta) 1 inh inhalation DAILY PFSH Medical History Right lower lobe lung mass Post-operative nausea and vomiting Dry eye COVID-19 COPD (chronic obstructive pulmonary disease) Malignant neoplasm of left kidney Vitamin D deficiency Depression Primary osteoarthritis of knees, bilateral Pure hypercholesterolemia Elevated C-reactive protein (CRP) Palpitations Constipation Obstructive sleep apnea Anxiety Benign essential hypertension Renal cell carcinoma of left kidney Oral thrush Lumbar degenerative disc disease Status post fall Right foot pain Chronic allergic bronchitis GERD (gastroesophageal reflux disease) Surgical History H/O kidney removal Hx of oral surgery Hx of tonsillectomy Pulmonary nodule 1 cm or greater in diameter History of nephrectomy Family History Father Hypertension CVD (cardiovascular disease) Cancer Mother Hypertension Substance abuse Other Mental health problem Social History Household Members: Spouse Household Members Other:: and brother and sister Housing: House Are you a primary veterinarian laboratory animal care to a significant other at home: No Do you presently have visiting nurse or other home services: No Alcohol intake: never Comment: COUNTS CORRECT Patient Tobacco Use Status: Former Tobacco user Quit Date: 2011 Tobacco use type: Cigarette Cigarette Packs Per Day: 1.5 Years Smoked: 30 e-Cigarette/Vaping Use: Currently Using Second Hand Smoke Exposure: Yes service: No Current occupational status: disabled Cognitive needs: No Hearing needs: No Vision needs: No Physical Exam Vital Signs: Last Vital Signs Pulse 104 H 11/09/23 14:18 Pulse Ox 94 11/09/23 14:18 Oxygen Delivery Method Room Air 11/09/23 14:18 Office Procedures 6 Minute Walk Time:: 13:30 SPO2 % at rest: 94 Pulse at rest: 104 SPO2 % during excercise: 86 Pulse during excercise: 106 SPO2 % after excercise: 96 Pulse after excercise: 108 Distance in yards walked: 180 Jeronimo Score: 4 Performance Observations:: Elina walked on level ground without assistance, her SPO2 dropped to 86% on room air. O2 started on setting 2 pulse her SPO2 recovered to 98%. She maintained her SPO2 96-97% for the remainder of the walk. [id number] - 6 Minute Walk Assessment & Plan Assessment & Plan (1) COPD (chronic obstructive pulmonary disease): Code(s): J44.9 - Chronic obstructive pulmonary disease, unspecified Qualifiers: COPD type: unspecified COPD Qualified Code(s): J44.9 - Chronic obstructive pulmonary disease, unspecified Plan Updated oxygen order placed with [employer]. Orders: Orders AMB 6 minute walk 11/09/23 J44.9 - Chronic obstructive pulmonary disease, u nspecified Coding Level of Care Code Established Pt Est Pt Level 1 (47616) Patient Type Established Diagnoses Chronic obstructive pulmonary disease, unspecified COPD type J44.9 COPD type: unspecified COPD CPT Codes Coding ([id number]) Comment NURSE VISIT ONLY
[2023-11-09 14:22] VITALS: PULSE 104; O2SAT 94
== END 2023-11-09 13:52 | disposition home or self-care (01) ==
PROVIDERS: PCP Internal Medicine; Visit Provider Internal Medicine Pulmonary Disease
DX: J44.9 Chronic obstructive pulmonary disease, unspecified (principal)

== ENCOUNTER → 2023-11-09 13:28 | Outpatient (BNVA) | payer OTHER, SELFPAY | PROVIDERS: PCP Internal Medicine; Visit Provider Internal Medicine Pulmonary Disease | DX: J44.9 Chronic obstructive pulmonary disease, unspecified (principal) | CPT/HCPCS: 99211 ==

== ENCOUNTER 2023-11-11 15:26 | Inpatient (IN) | payer OTHER, SELFPAY ==
--- NOTE | ~2023-11-11 | CT_ITS ---
EXAMINATION: CT ANGIOGRAM OF THE CHEST WITH AND WITHOUT CONTRAST (CT PULMONARY ANGIOGRAM FOR PE) CLINICAL INFORMATION: Fever and hypoxia; question pulmonary embolus; history of renal cell cancer. COMPARISON: CT chest dated 11/07/2023. TECHNIQUE: Prior to contrast administration, noncontrast localization images were obtained. Subsequently, multidetector volumetric imaging was performed from the thoracic inlet to below the diaphragms following the administration of 80 mL Omnipaque 350 intravenous contrast. No contrast reaction reported Sagittal, coronal, and MIP oblique sagittal reformatted images were obtained on the CT workstation, uploaded to PACS, and reviewed. This CT examination was performed using dose optimization techniques as appropriate, variously including the following: *Automated exposure control *Adjustment of mA and/or kV according to patient size (this includes techniques or standardized protocols for targeted exams where dose is matched to indication/reason for exam; i.e. extremities or head) *Use of iterative reconstruction technique Total exam dose-length product 92 mGy-cm FINDINGS: QUALITY OF STUDY/CONTRAST BOLUS: Satisfactory. PULMONARY ARTERIES: No pulmonary emboli. THORACIC AORTA: No aneurysm or dissection. Some mural thrombus is noted of the descending thoracic aorta and as well in the upper abdominal aorta. LUNG: Again, there are centrilobular emphysematous changes. A reticulonodular pattern is redemonstrated. There are stable postoperative changes consistent with a right upper lobe wedge resection. There are multiple pulmonary nodules, stable from the description on the report dated 11/06/2023. One of the largest right upper lobe pulmonary nodule is situated within the anterior segment, measuring 5 mm (7:103). A dominant right lower lobe nodule is situated within the medial basal segment, measuring 5 mm (7:293). At the posterior left base (7:276), a dominant 8 mm noncalcified nodule is seen. There is a mosaic attenuation pattern. There is generalized small airway thickening. The central airways appear patent. PLEURA: No pleural effusion or pneumothorax. MEDIASTINUM: There is rightward tracheal shift by approximately 1.4 cm. Normal heart size. There is a trace pericardial effusion. There is a subcarinal lymph node measuring 1.8 x 1.0 cm (5:25). There are further shotty, nonpathologically enlarged mediastinal lymph nodes. There are mildly enlarged bilateral hilar lymph nodes, the largest on the right measuring 1.3 x 1.0 cm and on the left 1.6 x 1.2 cm and 1.6 x 1.3 cm (5:27, 26 and 30). No evidence of septal bowing or right heart strain. CORONARY ARTERY CALCIFICATION: Moderate. CHEST WALL/AXILLA: No axillary or internal mammary lymphadenopathy. OSSEOUS STRUCTURES: No acute or suspicious osseous abnormality. UPPER ABDOMEN: Within the right hepatic lobe (5:42), a 6.1 x 5.3 cm mass is faintly visualized. No reflux of contrast into the hepatic veins to suggest elevated right heart pressures. CT/CT angio chest PE protocol IMPRESSION: 1. No pulmonary embolus or thoracic aortic aneurysm or dissection is seen. 2. There are centrilobular emphysematous changes. 3. There are postoperative changes consistent with a prior right upper lobe wedge resection. There is adjacent stable scarring, without definite recurrence noted. There is stable rightward mediastinal shift. 4. Multiple pulmonary nodules are redemonstrated, described in greater detail on the recent CT examination of the chest dated 11/06/2023. 5. There is a mosaic attenuation pattern, and mild small airways thickening is seen, together suggesting small airways disease secondary to an infectious or inflammatory etiology. Please correlate clinically. 6. There are increased subcarinal and bilateral hilar lymph nodes. 6. There are moderate coronary artery atherosclerotic calcifications. 7. No acute or aggressive osseous finding is noted. 8. There is a large right hepatic lobe mass again seen. VTE: negative
--- NOTE | ~2023-11-11 | XR_ITS ---
EXAMINATION: XR CHEST CLINICAL INFORMATION: Cough, fever, recent right middle lobe resection. COMPARISON: Multiple priors with the last chest CT of 11/06/2023. TECHNIQUE: 2 views of the chest were obtained. FINDINGS: Postsurgical changes of the right middle lobe wedge resection are again noted with surgical patricia in the right perihilar region adjacent patchy opacity. The findings are better seen on the previous CT scan. No new airspace opacities are noted. No evidence of pulmonary edema, pleural effusions or pneumothorax. Cardiomediastinal silhouette is stable with normal cardiac size with mild mediastinal shift to the right. Regional skeleton is intact. Visualized upper abdomen is unremarkable. XR/XR chest 2V IMPRESSION: Postsurgical changes in the right lung as detailed above. Right mid lung zone patchy opacity adjacent to the surgical patricia has decreased in size compared to previous chest x-ray of 10/09/2023. This opacity likely represents a postsurgical change/atelectasis. No new airspace opacities are noted.
[2023-11-11 15:28] VITALS: BP 132/78; PULSE 117; RESP 18; TEMP 36.4; O2SAT 93; BMI 20.7
--- NOTE | 2023-11-11 15:29 | ED_ITS ---
HPI - General Adult General Chief complaint: General Medical Stated complaint: Fever/Cancer patient Time Seen by Provider: 11/11/23 16:11 Source: patient Mode of arrival: ambulatory Limitations: no limitations History of Present Illness HPI narrative: This is a 68-year-old female with history of renal cell carcinoma (s/po left nephrectomy) with metastatic disease who is currently on chemotherapy (oral lenvatinib) followed by Dr. Delacruz, COPD on chronic oxygen 3 L prn presents to the ER with complaints of URI symptoms for the last 3 days. Patient reports yesterday she had a temperature of 100 degrees which improved with Tylenol. Today her temperature was 103.2 degrees which was improved with Tylenol. She called her oncologist who referred her into the emergency room for further evaluation. She reports shortness of breath at baseline unchanged. No chest pain, leg swelling, leg pain, skin rash, vomiting, diarrhea, abdominal pain, rhinorrhea, ear pain, sore throat. Patient reports that she was around her daughter this week who has similar symptoms with no testing done. Related Data Home Medications Medication Instructions Recorded Confirmed atorvastatin 10 mg tablet 10 mg PO DAILY 09/28/23 11/09/23 dexlansoprazole 60 mg 60 mg PO DAILY@1200 for acid reflux 09/28/23 11/09/23 capsule,biphase delayed release (Dexilant) famotidine 40 mg tablet 40 mg PO BEDTIME 09/28/23 11/09/23 hydrochlorothiazide 25 mg tablet 25 mg PO DAILY 09/28/23 11/09/23 nifedipine 30 mg tablet,extended 30 mg PO BEDTIME 09/28/23 11/09/23 release nystatin 100,000 unit/mL oral 10 ml buccal TID PRN thrush 09/28/23 11/09/23 suspension umeclidinium 62.5 mcg/actuation 1 inh inhalation DAILY 09/28/23 11/09/23 blister powder for inhalation (Incruse Ellipta) bupropion HCl 150 mg 24 hr tablet, 150 mg PO DAILY 10/06/23 11/09/23 extended release Previous Rx's Medication Instructions Recorded betamethasone dipropionate 0.05 % 1 appl topical BID PRN skin 10/07/22 topical cream irritation #45 grams albuterol sulfate 90 mcg/actuation 2 puff inhalation QID PRN 12/28/22 aerosol inhaler shortness of breath or wheezing #8.5 grams fluticasone propionate 220 2 puff PO BID #12 grams 12/28/22 mcg/actuation HFA aerosol inhaler (Flovent HFA) mometasone 0.1 % topical cream See Rx Instructions topical BID 03/20/23 PRN rash 30 days #45 grams gabapentin 400 mg capsule 400 mg PO TID 90 days #270 caps 06/28/23 cholecalciferol (vitamin D3) 50 50 mcg PO DAILY 90 days #90 caps 07/10/23 mcg (2,000 unit) capsule ipratropium 0.5 mg-albuterol 3 mg 3 ml inhalation Q6H PRN shortness 07/25/23 (2.5 mg base)/3 mL nebulization of breath or wheezing 30 days #180 soln mL oxycodone-acetaminophen 5 mg-325 1 tab PO Q8H PRN low back pain 7 10/11/23 mg tablet days #21 tabs lenvatinib 20 mg/day (10 mg x 2) 20 mg PO DAILY #60 caps 10/20/23 capsule clonazepam 0.5 mg tablet 0.5 mg PO TID PRN anxiety 30 days 10/27/23 #90 tabs ondansetron 8 mg disintegrating 8 mg PO Q8H #60 tabs 10/27/23 tablet amitriptyline 75 mg tablet 75 mg PO DAILY #90 tabs 11/06/23 Allergies Allergy/AdvReac Type Severity Reaction Status Date / Time Sulfa (Sulfonamide Allergy Severe ANAPHYLAXIS Verified 11/11/23 15:32 Antibiotics) Penicillins Allergy Intermediate RASH Verified 11/11/23 15:32 aspirin [ASA] AdvReac Severe severe Verified 11/11/23 15:32 stomach pain NSAIDS (Non-Steroidal AdvReac Severe severe Verified 11/11/23 15:32 Anti-Inflamma stomach pain codeine [Codeine] AdvReac Intermediate NAUSEA & Verified 11/11/23 15:32 VOMITING Review of Systems 2 Review of Systems: Yes all other systems are reviewed and are negative Constitutional: Constitutional: Reports no additional constitutional complaints, Denies body ache(s), Denies chills, Reports fever(s), Denies headache(s) and Denies weakness Eyes: Eyes: Reports no additional eye complaints and Denies change in vision ENT: Reports system reviewed and no additional complaints, except as documented, Denies dizziness, Denies headache(s), Denies nasal congestion, Denies nasal discharge and Denies neck pain Cardiovascular: Cardiovascular: Reports no additional cardiovascular complaints, Denies chest pain, Denies leg edema and Denies dyspnea Respiratory: Respiratory: Reports no additional respiratory complaints, Reports cough and Denies dyspnea Gastrointestinal: Gastrointestinal: Reports no additional gastrointestinal complaints, Denies abdominal pain, Denies diarrhea, Denies nausea and Denies vomiting Genitourinary: Genitourinary: Reports no additional female genitourinary complaints and Denies urinary incontinence Musculoskeletal: Musculoskeletal: Reports no additional musculoskeletal complaints, Denies back pain, Denies arthralgias, Denies joint swelling, Denies neck pain, Denies numbness and Denies tingling Integumentary/Breasts: Skin/Breast: Reports system reviewed and no additional complaints, except as docu and Denies rash Neurologic: Reports system reviewed and no additional complaints, except as documented, Denies Abnormal speech present, Denies dizziness, Denies headache(s), Denies numbness, Denies tingling and Denies weakness PMFSH Past Medical History Attestation statement: The following information was validated with the patient. Source: old records reviewed and nursing notes reviewed Medical History Right lower lobe lung mass Post-operative nausea and vomiting Dry eye COVID-19 COPD (chronic obstructive pulmonary disease) Malignant neoplasm of left kidney Vitamin D deficiency Depression Primary osteoarthritis of knees, bilateral Pure hypercholesterolemia Elevated C-reactive protein (CRP) Palpitations Constipation Obstructive sleep apnea Anxiety Benign essential hypertension Renal cell carcinoma of left kidney Oral thrush Lumbar degenerative disc disease Status post fall Right foot pain Chronic allergic bronchitis GERD (gastroesophageal reflux disease) Surgical History H/O kidney removal Hx of oral surgery Hx of tonsillectomy Pulmonary nodule 1 cm or greater in diameter History of nephrectomy Family History Family History Father Hypertension CVD (cardiovascular disease) Cancer Mother Hypertension Substance abuse Other Mental health problem Social History Social History Household Members: Spouse Household Members Other:: and brother and sister Housing: House Are you a primary care coordination manager to a significant other at home: No Do you presently have visiting nurse or other home services: No Alcohol intake: never Comment: COUNTS CORRECT Patient Tobacco Use Status: Former Tobacco user Quit Date: 2011 Tobacco use type: Cigarette Cigarette Packs Per Day: 1.5 Years Smoked: 30 e-Cigarette/Vaping Use: Currently Using Second Hand Smoke Exposure: Yes Advance Directives: No Advance Directives Information Provided: No service: No Current occupational status: disabled Cognitive needs: No Hearing needs: No Vision needs: No Physical Exam ED Vital Signs: Vital Signs - 24 hr 11/11/23 15:28 11/11/23 15:53 11/11/23 17:54 Temperature 97.6 F 97.4 F 98.1 F Pulse Rate 117 H 111 H 92 Respiratory Rate 18 20 16 Blood Pressure 132/78 130/73 133/69 Pulse Oximetry 93 96 98 Oxygen Delivery Method Room Air Room Air Nasal Cannula Oxygen Flow Rate 2 BMI result Body Mass Index 20.7 Const General: cooperative, healthy appearing, comfortable and no acute distress Orientation/consciousness: patient oriented x3 Limitations: no limitations [facility] Head: Yes normal to inspection Ears: hearing grossly normal bilaterally and TM's normal bilaterally General nose exam: Normal external nose present Face and sinus: Yes normal facial exam Mouth: Normal oral and palatal mucosa present Throat: Yes posterior oropharynx normal, Yes tonsils normal and Yes uvula midline Eyes General: appearance normal, both eyes and all related structures Pupils: Equal, round and reactive pupils present Neck Neck: Yes normal visual inspection, Yes full ROM, Yes no lymphadenopathy and Yes no meningeal signs Chest Chest palpation & inspection: normal inspection of the chest Resp Effort & Inspection: normal respiratory effort Auscultation: clear to auscultation bilaterally Cardio Rate: regular rate Rhythm: regular rhythm Peripheral pulses: Peripheral pulses 2+ throughout GI Inspection: Yes normal to inspection Palpation (GI): Soft to palpation and nontender Auscultation: normal bowel sounds Back/Spine/Pelvis Thoracic/Lumbar Spine: thoracic and lumbar spine normal to inspection Skin General skin exam: no rashes or lesions noted Neuro General: patient oriented x3, no meningeal signs, no focal motor deficits and normal sensation to monofilament Cranial nerves: Yes Equal, round and reactive pupils present Cognition (Neuro): normal cognition Speech: No Abnormal speech present Gait exam (Neuro): Normal gait present Motor exam (neuro): 5/5 motor strength present throughout Extrem General: Yes normal to inspection, Yes no pedal edema and Yes no calf tenderness Course Course Course Narrative: This is an RME: Additional HPI, ROS, PE not included below will be deferred to primary provider. Patient is a 68-year-old female history of Metastatic Renal cell carcinoma with prior nephrectomy in 2019, right middle lobe wedge resection October 2023 secondary to metastasis found on PET scan after recurrent bronchitis and PNA, and patient report metastasis to liver confirmed on biopsy 1.5 weeks ago. Presents emergency department today with temp 103 degrees, does admit to URI symptoms, coughing. Called Dr. Delacruz advised to come to ED, started chemo 4-5 days ago.. Plan: Labs, viral testing, CXR Reevaluation(s) Reevaluation #1: 1645-labs show leukocytosis of 20.8. At this time infection is suspected. Antibiotics and IV fluids ordered. Chest x-ray does not show an infiltrate. Due to patient's history I would consider an occult pneumonia and or PE so CTA ordered. Reevaluation #2: 1900-CT of the chest was negative for PE. There is a mosaic attenuation pattern which may be seen with small airway disease versus infectious or inflammatory etiology. Clinically based on the patient's symptoms I would consider an infectious process. Patient is on oral chemo. Patient does have a leukocytosis. Patient returned from the bathroom with oxygen saturations 60s. It appears she seems to have an increasing oxygen requirement. She does have oxygen at home but normally is only on it if needed. I did recommend the patient be admitted to the hospital for further management. She tells me that she has a brother who is developmentally delayed who she is the primary caregiver for. She does live with her . She feels that she needs to go home tonight to put her brother to bed as he is quite dependent on her. She can then return and her will continue to watch him. She tells me that she will absolutely return to the emergency room tonight. I explained to her that if she does not then I will prescribe her an antibiotic after she called to inform me. She will leave against medical advice and we discussed the risks at the bedside. Reevaluation #3: 1920-Patient spoke with and now willing to stay. Will call hospitalist for admission Medications Administered Discontinued Medications Generic Name Dose Route Start Last Admin Trade Name [place] PRN Reason Stop Dose Admin Sodium Chloride 1,000 mls @ 999 mls/hr 11/11/23 16:33 11/11/23 19:20 Ns IV 11/11/23 17:33 Infused .Q1H1M STA Infusion Cefepime HCl 2 gm/ Sodium 50 mls @ 100 mls/hr 11/11/23 16:45 11/11/23 17:38 Chloride IV 11/11/23 17:14 Infused ONCE ONE Infusion Iohexol 100 ml 11/11/23 17:24 11/11/23 17:28 Iohexol 350 Mg/Ml 100 Ml Infus..Btl IV 11/11/23 17:25 65 ml ONCE ONE Administration Medical Decision Making Medical Decision Making [facility] Narrative: This is a 68-year-old female with history of renal cell carcinoma (s/po left nephrectomy) with metastatic disease who is currently on chemotherapy (oral lenvatinib) followed by Dr. Delacruz, COPD on chronic oxygen 3 L prn presents to the ER with complaints of URI symptoms for the last 3 days. Patient reports yesterday she had a temperature of 100 degrees which improved with Tylenol. Today her temperature was 103.2 degrees which was improved with Tylenol. She called her oncologist who referred her into the emergency room for further evaluation. She reports shortness of breath at baseline unchanged. No chest pain, leg swelling, leg pain, skin rash, vomiting, diarrhea, abdominal pain, rhinorrhea, ear pain, sore throat. Patient reports that she was around her daughter this week who has similar symptoms with no testing done. On exam the patient is well-appearing. She is well hydrated appearing. She has no lymphadenopathy or meningeal signs. Her lungs are clear. No focal abdominal pain. No skin rash seen. Legs are normal with no swelling or discomfort on exam. Per nursing patient is on p.r.n. oxygen for COPD. She arrived without oxygen and her oxygen saturation was 88%. Patient does not feel that this is abnormal for her. She does not feel that her shortness of breath is worsened from baseline. Due to her underlying history of malignancy currently receiving chemotherapy I will obtain labs including blood cultures and lactic acid, UA, chest x-ray, viral testing, EKG Differential Diagnosis Differential Diagnoses: The differential diagnosis associated with the presentation includes Pneumonia, viral syndrome, influenza, PE Neutropenic fever Admission/Observation Consideration of admission/observation: Escalation of care including admission/observation considered Patient with a history of being immunocompromised with increasing oxygen requirements with leukocytosis and pneumonia. Will admit for further management Consult Healthcare Provider Management of the patient was discussed with: Hospitalist I spoke to the hospitalist Dr. Sepulveda who accepted admission of the patient @ 1955 Lab Data MDM Lab Attestation statement: I reviewed the patient's lab results. 11/11/23 16:24 11/11/23 16:24 Labs: Lab Results 11/11/23 11/11/23 Range/Units 16:23 16:24 WBC 20.8 H (4.8-10.8) X10*3/uL RBC 4.55 (4.20-5.50) X10*6/uL Hgb 11.9 L (12.0-16.0) g/dl Hct 36.7 L (37.0-47.0) % MCV 80.7 (80.0-98.0) fL MCH 26.2 L (27.0-33.0) pg MCHC 32.4 (31.0-35.0) g/dl RDW 13.0 (11.0-16.0) % Plt Count 349 (160-400) X10*3/uL MPV 9.0 L (9.4-12.3) fL Immature Gran % (Auto) 0.5 H (0.0-0.4) % Neut % (Auto) 86.5 H (45-73) % Lymph % (Auto) 4.6 L (20-40) % [place] % (Auto) 6.3 (2-11) % Eos % (Auto) 1.6 (0-4) % Baso % (Auto) 0.5 (0-2) % Lymph # (Auto) 1.0 L (1.2-4.9) X10*3/uL [place] # (Auto) 1.3 H (0.1-1.2) X10*3/uL Eos # (Auto) 0.3 (0.0-0.4) X10*3/uL Baso # (Auto) 0.1 (0.0-0.2) X10*3/uL Abs Immat Gran (auto) 0.10 H (0.00-0.03) X10*3/uL Absolute Neuts (auto) 18.0 H (2.0-8.3) x10*3/uL Absolute Nucleated RBC 0.000 (0.0-0.012) X10*3/uL Nucleated RBC % (auto) 0.0 (0.0-0.2) /100WBC PT 13.0 (11.1-13.3) SEC INR 1.1 (0.9-1.1) Sodium 131 L (135-145) mmol/L Potassium 4.6 D (3.3-5.1) mmol/L Chloride 93 L (96-108) mmol/L Carbon Dioxide 26 (22-29) mmol/L Anion Gap 17 (12-20) BUN 13 (9-16) mg/dL Creatinine 0.86 (0.5-1.4) mg/dL Estim Creat Clear Calc 52.4 Estimated GFR > 60 Random Glucose 96 (60-115) mg/dL Lactic Acid 1.1 (0.5-2.0) mmol/L Calcium 9.2 (8.4-10.2) mg/dL Total Bilirubin 0.4 (0.0-1.0) mg/dL AST 24 (5-31) U/L ALT 11 (0-31) U/L Alkaline Phosphatase 143 H (39-117) U/L Troponin I High Sens < 2.7 (<3.5-17.0) ng/L Total Protein 7.8 (6.5-8.0) g/dL Albumin 3.7 (3.5-5.0) g/dL Influenza Type A (PCR) NEGATIVE (Negative) Influenza Type B (PCR) NEGATIVE (Negative) RSV RNA Qual (PCR) NEGATIVE (Negative) SARS-CoV-2 RNA (RT-PCR) NEGATIVE (Negative) Independent Interpretation I performed an independent interpretation of an: EKG and Plain X-Ray Interpretation: I independently reviewed the chest x-ray/cta and agree with the radiology report I independently reviewed the EKG which shows normal sinus rhythm with a rate of 90, normal OR, normal QRS, or QT Radiology Impression Discussion of test interpretation with radiology: I have reviewed the radiologist's reading. Radiologist Impression: [address] [address] XRay Report Signed Patient: Elina Stewart MR#: [id number] : 1955 Acct:[id number] Age/Sex: 68 / F ADM Date: 11/11/23 Loc: HO.ED Attending Dr: Ordering Physician: Citlaly Aj CNP Date of Service: 11/11/23 Procedure(s): XR chest 2V Accession Number(s): [id number] cc: Dominic Lin MD; Citlaly Aj VIDEO GAME DESIGNER~ EXAMINATION: XR CHEST CLINICAL INFORMATION: Cough, fever, recent right middle lobe resection. COMPARISON: Multiple priors with the last chest CT of 11/06/2023. TECHNIQUE: 2 views of the chest were obtained. FINDINGS: Postsurgical changes of the right middle lobe wedge resection are again noted with surgical patricia in the right perihilar region adjacent patchy opacity. The findings are better seen on the previous CT scan. No new airspace opacities are noted. No evidence of pulmonary edema, pleural effusions or pneumothorax. Cardiomediastinal silhouette is stable with normal cardiac size with mild mediastinal shift to the right. Regional skeleton is intact. Visualized upper abdomen is unremarkable. XR/XR chest 2V IMPRESSION: Postsurgical changes in the right lung as detailed above. Right mid lung zone patchy opacity adjacent to the surgical patricia has decreased in size compared to previous chest x-ray of 10/09/2023. This opacity likely represents a postsurgical change/atelectasis. No new airspace opacities are noted. [address] [address] [address] Scan Report Signed Patient: Elina Stewart MR#: [id number] : 1955 Acct:[id number] Age/Sex: 68 / F ADM Date: 11/11/23 Loc: HO.ED Attending Dr: Ordering Physician: Gina Zapata NP Date of Service: 11/11/23 Procedure(s): CT angio chest PE protocol Accession Number(s): [id number] cc: Dominic Lin MD; Benny,Gina INTERNIST MEDICAL DOCTOR MD~ EXAMINATION: CT ANGIOGRAM OF THE CHEST WITH AND WITHOUT CONTRAST (CT PULMONARY ANGIOGRAM FOR PE) CLINICAL INFORMATION: Fever and hypoxia; question pulmonary embolus; history of renal cell cancer. COMPARISON: CT chest dated 11/07/2023. TECHNIQUE: Prior to contrast administration, noncontrast localization images were obtained. Subsequently, multidetector volumetric imaging was performed from the thoracic inlet to below the diaphragms following the administration of 80 mL Omnipaque 350 intravenous contrast. No contrast reaction reported Sagittal, coronal, and MIP oblique sagittal reformatted images were obtained on the CT workstation, uploaded to PACS, and reviewed. This CT examination was performed using dose optimization techniques as appropriate, variously including the following: *Automated exposure control *Adjustment of mA and/or kV according to patient size (this includes techniques or standardized protocols for targeted exams where dose is matched to indication/reason for exam; i.e. extremities or head) *Use of iterative reconstruction technique Total exam dose-length product 92 mGy-cm FINDINGS: QUALITY OF STUDY/CONTRAST BOLUS: Satisfactory. PULMONARY ARTERIES: No pulmonary emboli. THORACIC AORTA: No aneurysm or dissection. Some mural thrombus is noted of the descending thoracic aorta and as well in the upper abdominal aorta. LUNG: Again, there are centrilobular emphysematous changes. A reticulonodular pattern is redemonstrated. There are stable postoperative changes consistent with a right upper lobe wedge resection. There are multiple pulmonary nodules, stable from the description on the report dated 11/06/2023. One of the largest right upper lobe pulmonary nodule is situated within the anterior segment, measuring 5 mm (7:103). A dominant right lower lobe nodule is situated within the medial basal segment, measuring 5 mm (7:293). At the posterior left base (7:276), a dominant 8 mm noncalcified nodule is seen. There is a mosaic attenuation pattern. There is generalized small airway thickening. The central airways appear patent. PLEURA: No pleural effusion or pneumothorax. MEDIASTINUM: There is rightward tracheal shift by approximately 1.4 cm. Normal heart size. There is a trace pericardial effusion. There is a subcarinal lymph node measuring 1.8 x 1.0 cm (5:25). There are further shotty, nonpathologically enlarged mediastinal lymph nodes. There are mildly enlarged bilateral hilar lymph nodes, the largest on the right measuring 1.3 x 1.0 cm and on the left 1.6 x 1.2 cm and 1.6 x 1.3 cm (5:27, 26 and 30). No evidence of septal bowing or right heart strain. CORONARY ARTERY CALCIFICATION: Moderate. CHEST WALL/AXILLA: No axillary or internal mammary lymphadenopathy. OSSEOUS STRUCTURES: No acute or suspicious osseous abnormality. UPPER ABDOMEN: Within the right hepatic lobe (5:42), a 6.1 x 5.3 cm mass is faintly visualized. No reflux of contrast into the hepatic veins to suggest elevated right heart pressures. External Record Review External record reviewed: Outpatient record Critical Care Time Critical Care Time Critical Care Time: Yes Total Critical Care Time: 60 Attestation: Patient with increasing oxygen requirements, leukocytosis with fever and history of being immunocompromised calling finding for admission. Spoke to patient's several times about goals of care. Spoke to the hospitalist for admission Discharge Plan Discharge Clinical Impression: Pneumonia, Leukocytosis Patient Disposition: Admitted As Inpatient Additional Instructions: Your CT scan shows pneumonia. Your white blood cell count is elevated. You are requiring more oxygen from baseline. Our recommendation is for you to be admitted as UR immunocompromised. You have told me you will return to the ER tonight. If you do not please call so that I may treat you with an antibiotic prescription
[2023-11-11 15:53] VITALS: BP 130/73; PULSE 111; RESP 20; TEMP 36.3; O2SAT 96
[2023-11-11 16:32] LABS: MANUAL DIFF FLAG NO
[2023-11-11 16:34] LABS: Basophils Absolute Auto 0.1 X10*3/uL (0.0-0.2); Basophils Percent Auto 0.5 % (0-2); Eosinophils Absolute Auto 0.3 X10*3/uL (0.0-0.4); Eosinophils Percent Auto 1.6 % (0-4); Hematocrit 36.7 % (37.0-47.0); Hemoglobin 11.9 g/dl (12.0-16.0); Imm Gran Pct Auto 0.5 % (0.0-0.4); Lymphocytes Percent Auto 4.6 % (20-40); Mean Corpuscular HGB Conc 32.4 g/dl (31.0-35.0); Mean Corpuscular Hemoglobin 26.2 pg (27.0-33.0); Mean Corpuscular Volume 80.7 fL (80.0-98.0); Monocytes Absolute Auto 1.3 X10*3/uL (0.1-1.2); Monocytes Percent Auto 6.3 % (2-11); Neutrophils Percent Auto 86.5 % (45-73); Platelet Count 349 X10*3/uL (160-400); Red Blood Count 4.55 X10*6/uL (4.20-5.50); White Blood Count 20.8 X10*3/uL (4.8-10.8)
[2023-11-11 16:42] LABS: INTERNATIONAL NORM RATIO 1.1 (0.9-1.1)
[2023-11-11] MEDS: 0.9 % Sodium Chloride 1,000 ML 999 ML IV (16:43)
[2023-11-11 16:45] LABS: Lactic Acid 1.1 mmol/L (0.5-2.0)
[2023-11-11 16:50] LABS: Alanine Aminotransferase 11 U/L (0-31); Albumin Level 3.7 g/dL (3.5-5.0); Alkaline Phosphatase 143 U/L (39-117); Anion Gap 17 (12-20); Aspartate Amino Transferase 24 U/L (5-31); Bilirubin Total 0.4 mg/dL (0.0-1.0); Blood Urea Nitrogen 13 mg/dL (9-16); Calcium 9.2 mg/dL (8.4-10.2); Carbon Dioxide 26 mmol/L (22-29); Chloride 93 mmol/L (96-108); Creatinine Clr Calc Pharmacy 52.4; Estimated Glomerular Filt Rate > 60; Glucose Random 96 mg/dL (60-115); Potassium 4.6 mmol/L (3.3-5.1); Sodium 131 mmol/L (135-145); Total Protein 7.8 g/dL (6.5-8.0)
[2023-11-11] MEDS: cefEPime HCl 2 GM in 0.9 % Sodium Chloride 50 ML IV (17:03)
[2023-11-11 17:18] LABS: Influenza A PCR NEGATIVE (Negative); Influenza B PCR NEGATIVE (Negative); Resp Syncy Virus RNA Qual PCR NEGATIVE (Negative); SARS COV2 PCR INHOUSE NEGATIVE (Negative)
--- NOTE | 2023-11-11 17:26 | ECG_ITS ---
Test Reason : TACY Blood Pressure : / mmHG Vent. Rate : 092 BPM Atrial Rate : 092 BPM P-R Int : 172 ms QRS Dur : 084 ms QT Int : 368 ms P-R-T Axes : 052 022 042 degrees QTc Int : 455 ms Normal sinus rhythm Possible Left atrial enlargement Borderline ECG When compared with ECG of 28-SEP-2023 14:14, No significant change was found Referred By: Gina Ferguson Electronically Signed By:EVY JIMENEZ
[2023-11-11] MEDS: iohexoL 350 MG/ML 100 ML INFUS..BTL IV (17:28)
[2023-11-11 17:54] VITALS: BP 133/69; PULSE 92; RESP 16; TEMP 36.7; O2SAT 98
[2023-11-11 17:57] LABS: Troponin-I High Sensitivity < 2.7 ng/L (<3.5-17.0)
--- NOTE | 2023-11-11 19:51 | PM.IMHP ---
History of Present Illness Date of Service: 11/11/23 Attending physician on admission: Jourdan Lebron Chief Complaint: Fever, cough Pt is a 68-year-old female with a PMH significant for?renal cell carcinoma (s/p left nephrectomy in 01/2020) with metastasis to the liver and lungs currently on chemotherapy (oral lenvatinib, started 11/07/2023), COPD on prn home O2, HTN, HLD, and restless leg syndrome who presents to the ED for evaluation of fever. Pt states she off this morning and took her temperature which she measured at 103.2 degrees and improved with Tylenol. Patient recently started oral chemotherapy on Monday; she called her oncologist who referred her to the ED for further evaluation. Patient states she was around her daughter on Monday who then became sick on Monday. Has had an increased cough for the past few days, nonproductive but ?starting to feel deep?, and used her prn home O2 today for the first time in a long time. Patient denies chest pain/pressure, palpitations. Nausea, vomiting, abdominal pain. Of note, has a home pulse ox and reports she normally sats 93-95% on RA. Patient recently had bronchoscopy and VATS right middle lobe wedge resection biopsy on 10/06/2023. In the ED pt was afebrile, tachycardic up to 117, and desatting into the 60s on RA with ambulation, as well as desatting into the mid 80s on RA at rest. Labs were significant for leukocytosis of 20.8, sodium 131, and alk-phos 143, otherwise grossly unremarkable. Tested negative for influenza type a and B, RSV, COVID. CTA of chest found a mosaic attenuation pattern with mild small airway thickening, suggesting small airway disease secondary to an infectious or inflammatory etiology. Also redemonstrated numerous findings from previous exams. EKG demonstrated normal sinus rhythm without evidence of significant ST elevations or depressions. Pt was treated with IVF and cefepime. Pt will be admitted to the hospital for treatment and further evaluation of acute hypoxic respiratory failure in the setting of community acquired pneumonia with sepsis. Review of Systems Review of Systems: Fever Nonproductive cough Shortness of breath and difficulty breathing Denies chest pain/pressure, palpitations No nausea, vomiting, abdominal pain PMFSH Medical History Right lower lobe lung mass Post-operative nausea and vomiting Dry eye COVID-19 COPD (chronic obstructive pulmonary disease) Malignant neoplasm of left kidney Vitamin D deficiency Depression Primary osteoarthritis of knees, bilateral Pure hypercholesterolemia Elevated C-reactive protein (CRP) Palpitations Constipation Obstructive sleep apnea Anxiety Benign essential hypertension Renal cell carcinoma of left kidney Oral thrush Lumbar degenerative disc disease Status post fall Right foot pain Chronic allergic bronchitis GERD (gastroesophageal reflux disease) Family History Father Hypertension CVD (cardiovascular disease) Cancer Mother Hypertension Substance abuse Other Mental health problem Surgical History H/O kidney removal Hx of oral surgery Hx of tonsillectomy Pulmonary nodule 1 cm or greater in diameter History of nephrectomy Social History Household Members: Spouse Household Members Other:: and brother and sister Housing: House Are you a primary workforce investment act career manager to a significant other at home: No Do you presently have visiting nurse or other home services: No Alcohol intake: never Comment: COUNTS CORRECT Patient Tobacco Use Status: Former Tobacco user Quit Date: 2011 Tobacco use type: Cigarette Cigarette Packs Per Day: 1.5 Years Smoked: 30 e-Cigarette/Vaping Use: Currently Using Second Hand Smoke Exposure: Yes Advance Directives: No Advance Directives Information Provided: No service: No Current occupational status: disabled Cognitive needs: No Hearing needs: No Vision needs: No Meds Allergies Allergy/AdvReac Type Severity Reaction Status Date / Time Sulfa (Sulfonamide Allergy Severe ANAPHYLAXIS Verified 11/11/23 15:32 Antibiotics) Penicillins Allergy Intermediate RASH Verified 11/11/23 15:32 aspirin [ASA] AdvReac Severe severe Verified 11/11/23 15:32 stomach pain NSAIDS (Non-Steroidal AdvReac Severe severe Verified 11/11/23 15:32 Anti-Inflamma stomach pain codeine [Codeine] AdvReac Intermediate NAUSEA & Verified 11/11/23 15:32 VOMITING Home Medications Medication Instructions Recorded Confirmed Last Taken Type atorvastatin 10 mg tablet 10 mg PO DAILY 09/28/23 11/09/23 11/01/23 History dexlansoprazole 60 mg 60 mg PO DAILY@1200 for acid reflux 09/28/23 11/09/23 10/06/23 History capsule,biphase delayed release (Dexilant) famotidine 40 mg tablet 40 mg PO BEDTIME 09/28/23 11/09/23 10/05/23 History hydrochlorothiazide 25 mg tablet 25 mg PO DAILY 09/28/23 11/09/23 11/01/23 History nifedipine 30 mg tablet,extended 30 mg PO BEDTIME 09/28/23 11/09/23 10/05/23 History release nystatin 100,000 unit/mL oral 10 ml buccal TID PRN thrush 09/28/23 11/09/23 Unknown History suspension umeclidinium 62.5 mcg/actuation 1 inh inhalation DAILY 09/28/23 11/09/23 10/06/23 History blister powder for inhalation (Incruse Ellipta) bupropion HCl 150 mg 24 hr tablet, 150 mg PO DAILY 10/06/23 11/09/23 10/05/23 History extended release Physical Exam Vital Signs and Narrative: Vital Signs: Last Vital Signs Temp 98.1 F 11/11/23 17:54 Pulse 92 11/11/23 17:54 Resp 16 11/11/23 17:54 BP 133/69 11/11/23 17:54 Pulse Ox 98 11/11/23 17:54 O2 Del Method Nasal Cannula 11/11/23 17:54 O2 Flow Rate 2 11/11/23 17:54 BMI result Body Mass Index 20.7 Constitutional: Alert, in no acute distress. Mental Status: Oriented to person, place and time. Eyes: Pupils are equal, round, and reactive to light. Ear, Nose, and Throat: Oropharynx clear, mucous membranes moist. Ears and nose without deformities. Trachea midline. Respiratory: Clear to auscultation bilaterally. No wheezing, rales, or rhonchi. Cardiovascular: S1, S2 regular. No murmurs, rubs, or gallops. Gastrointestinal: Abdomen soft, non-tender, non-distended. Normal bowel sounds. Neurologic: Cranial nerves II-XII are grossly intact bilaterally. No focal neurological deficits. Moves all extremities spontaneously. Skin: Warm, dry. Musculoskeletal: No cyanosis or clubbing. Extremities: No edema. Psychiatric: Normal mood and affect. Results Labs 11/11/23 16:24 02/10/24 16:24 Labs: Laboratory Results - last 24 hr 11/11/23 11/11/23 16:23 16:24 MCV 80.7 MCH 26.2 L MCHC 32.4 RDW 13.0 Plt Count 349 MPV 9.0 L Immature Gran % (Auto) 0.5 H Neut % (Auto) 86.5 H Lymph % (Auto) 4.6 L Holmes % (Auto) 6.3 Eos % (Auto) 1.6 Baso % (Auto) 0.5 Lymph # (Auto) 1.0 L Holmes # (Auto) 1.3 H Eos # (Auto) 0.3 Baso # (Auto) 0.1 Abs Immat Gran (auto) 0.10 H Absolute Neuts (auto) 18.0 H Absolute Nucleated RBC 0.000 Nucleated RBC % (auto) 0.0 PT 13.0 INR 1.1 Anion Gap 17 Estim Creat Clear Calc 52.4 Estimated GFR > 60 Random Glucose 96 Lactic Acid 1.1 Calcium 9.2 Total Bilirubin 0.4 AST 24 ALT 11 Alkaline Phosphatase 143 H Total Protein 7.8 Albumin 3.7 Influenza Type A (PCR) NEGATIVE Influenza Type B (PCR) NEGATIVE RSV RNA Qual (PCR) NEGATIVE SARS-CoV-2 RNA (RT-PCR) NEGATIVE Imaging Radiologist's Impressions: Impressions Chest X-Ray 11/11/23 15:43 IMPRESSION: Postsurgical changes in the right lung as detailed above. Right mid lung zone patchy opacity adjacent to the surgical patricia has decreased in size compared to previous chest x-ray of 10/09/2023. This opacity likely represents a postsurgical change/atelectasis. No new airspace opacities are noted. Chest CTA 11/11/23 17:31 IMPRESSION: 1. No pulmonary embolus or thoracic aortic aneurysm or dissection is seen. 2. There are centrilobular emphysematous changes. 3. There are postoperative changes consistent with a prior right upper lobe wedge resection. There is adjacent stable scarring, without definite recurrence noted. There is stable rightward mediastinal shift. 4. Multiple pulmonary nodules are redemonstrated, described in greater detail on the recent CT examination of the chest dated 11/06/2023. 5. There is a mosaic attenuation pattern, and mild small airways thickening is seen, together suggesting small airways disease secondary to an infectious or inflammatory etiology. Please correlate clinically. 6. There are increased subcarinal and bilateral hilar lymph nodes. 6. There are moderate coronary artery atherosclerotic calcifications. 7. No acute or aggressive osseous finding is noted. 8. There is a large right hepatic lobe mass again seen. VTE: negative Assessment and Plan (1) Pneumonia: Status: Acute (2) Hypoxia: Status: Inactive Plan Pt is a 68-year-old female with a PMH significant for?renal cell carcinoma (s/p left nephrectomy in 01/2020) with metastasis to the liver and lungs currently on chemotherapy (oral lenvatinib, started 11/07/2023), COPD on prn home O2, HTN, HLD, and restless leg syndrome who presents to the ED for evaluation of fever. Pt will be admitted to the hospital for treatment and further evaluation of acute hypoxic respiratory failure in the setting of community acquired pneumonia with sepsis. Acute hypoxic respiratory failure in the setting of community-acquired pneumonia with sepsis Pt with reported 103.2 fever at home, cough, difficulty breathing, CTA with evidence of likely pneumonia, desatting into 60s with ambulation Patient meets sepsis criteria: Tachycardia and leukocytosis; lactic acid WNL 1.1 Patient is started on broad-spectrum antibiotics and given IVF in ED Will treat with cefepime 2 g q8h, started 11/11/[address] Rosenbaum, consider pulmonology consult if necessary Titrate supplemental oxygen >92, wean as tolerated Follow cultures Renal cell carcinoma with metastasis to liver and lungs Continue lenvatinib Oncology consult HTN Continue nifedipine, hydrochlorothiazide COPD Not in acute exacerbation Continue home inhalers GERD Continue famotidine, PPI Restless leg syndrome Continue gabapentin Mood disorder Continue amitriptyline, gabapentin Full Code Attending:?Dr. Sepulveda DVT Prophylaxis: Lovenox Pt will require a hospitalization of at least two nights for treatment of?acute hypoxic respiratory failure in the setting of pneumonia with sepsis. Given patient's significant comorbidities including renal cell carcinoma with metastasis to liver and lungs as well as immunocompromised state having recently started oral chemotherapy, patient is at risk for quickly decompensated and requires hospitalization for administration of IV antibiotics and close monitoring of labs and vitals. Quality Stroke Does the patient have a stroke diagnosis?: No VTE Prior VTE?: No VTE Risk Level:: Medical - moderate - high VTE Device Contraindication: Treatment Not Indicated VTE Drug Contraindication: N/A - Med Ordered
[2023-11-11 21:29] LABS: Appearance Urine Clear; Color Urine Yellow; Glucose Urine UA Negative (Negative); Leukocyte Esterase Urine Trace (Negative); Nitrite Urine Negative (Negative); UMIC TRIGGER UACC YES; Urine Blood Negative (Negative); Urine Ketones Negative (Negative); Urine Protein Negative (Neg-Trace)
[2023-11-11 21:34] LABS: Bacteria Urine None Seen (None Seen); Hyaline Casts Urine 0-2 /LPF (0-2); RBC Urine 0-2 /HPF (0-2); Squamous Epithelial Cell Urine 0-2 /HPF (0-2); WBC Urine 0-5 /HPF (0-5)
[2023-11-11 21:47] VITALS: BP 147/79; PULSE 89; RESP 16; TEMP 36.9; O2SAT 96
--- NOTE | 2023-11-11 21:57 | PC.NURSE ---
this rn performed bedside med rec with pt. pt able to confirm medications. pt calm and cooperative denies new needs at this time
[2023-11-11] MEDS: Famotidine 20 MG TABLET 40 MG PO (22:19)
[2023-11-11] MEDS: Enoxaparin Sodium 40 MG/0.4 ML SYRINGE SUBCUT (22:19)
[2023-11-11] MEDS: Gabapentin 400 MG CAPSULE PO (22:19)
[2023-11-11] MEDS: clonazePAM 0.5 MG TABLET PO (22:19)
[2023-11-11] MEDS: Amitriptyline HCl 25 MG TABLET 75 MG PO (22:53)
[2023-11-12] VITALS: BP 136/80; PULSE 83; RESP 16; TEMP 37.1; O2SAT 93
[2023-11-12] MEDS: cefEPime HCl 2 GM in 0.9 % Sodium Chloride 50 ML IV ×3 (01:21→16:54)
[2023-11-12] MEDS: 0.9 % Sodium Chloride Flush 3 ML SYRINGE IVFLUSH ×3 (01:21→14:43)
--- NOTE | 2023-11-12 01:27 | PC.NURSE ---
pt allowed to sleep pt medicated according to nov pt made aware of bed assignment
[2023-11-12] MEDS: Calcium Carbonate 750 MG TAB.CHEW 1500 MG PO ×2 (02:36→22:48)
[2023-11-12 06:28] LABS: Hematocrit 34.7 % (37.0-47.0); Hemoglobin 11.2 g/dl (12.0-16.0); Mean Corpuscular HGB Conc 32.3 g/dl (31.0-35.0); Mean Corpuscular Hemoglobin 26.4 pg (27.0-33.0); Mean Corpuscular Volume 81.6 fL (80.0-98.0); Platelet Count 321 X10*3/uL (160-400); Red Blood Count 4.25 X10*6/uL (4.20-5.50); White Blood Count 11.2 X10*3/uL (4.8-10.8)
[2023-11-12 06:30] LABS: Anion Gap 14 (12-20); Blood Urea Nitrogen 9 mg/dL (9-16); Calcium 9.3 mg/dL (8.4-10.2); Carbon Dioxide 28 mmol/L (22-29); Chloride 99 mmol/L (96-108); Creatinine Clr Calc Pharmacy 66.4; Estimated Glomerular Filt Rate > 60; Glucose Random 83 mg/dL (60-115); Potassium 3.8 mmol/L (3.3-5.1); Sodium 137 mmol/L (135-145)
[2023-11-12] MEDS: Omeprazole 40 MG CAPSULE.DR PO (06:48)
[2023-11-12 06:56] VITALS: BP 170/90; PULSE 78; RESP 16; TEMP 36.6; O2SAT 98
[2023-11-12 07:23] VITALS: BP 142/74
[2023-11-12] MEDS: Tiotropium Bromide 2.5 mcg 1 PUFF/2.5 MCG MIST.INHAL 2 PUFF INHALE (08:42)
[2023-11-12] MEDS: Fluticasone Propionate 250 MCG BLST.W.DEV 2 PUFF INHALE (08:42)
[2023-11-12 08:50] VITALS: PULSE 95; RESP 18; O2SAT 97
[2023-11-12] MEDS: Gabapentin 400 MG CAPSULE PO ×3 (09:21→22:40)
[2023-11-12] MEDS: Atorvastatin Calcium 10 MG TABLET PO (09:21)
[2023-11-12] MEDS: buPROPion HCl XL 150 MG TAB.ER.24H PO (09:21)
[2023-11-12] MEDS: hydroCHLOROthiazide 25 MG TABLET PO (09:21)
[2023-11-12] MEDS: Cholecalciferol (Vitamin D3) 25 MCG TABLET 50 MCG PO (09:21)
--- NOTE | 2023-11-12 09:30 | PHA.MEDREC ---
Pharmacy Consult ? Medication Reconciliation Pharmacy has completed the medication reconciliation. pt takes klonopin 1 mg PM everyday, then has 0.5 mg PRN if needed.
--- NOTE | 2023-11-12 09:34 | PM.HEMONCCN ---
Subjective - Subjective Chief complaint: Fever Patient: known to practice within the last 3 years Consult date: 11/13/23 Primary Care Provider: Dominic Lin MD Medical Summary: Diagnosis: Metastatic renal cell carcinoma HPI - Consult Narrative Reason for consult: Pneumonia, metastatic renal cell carcinoma Narrative: Elina Stewart is a 68 year old female with a recent diagnosis of metastatic kidney cancer who was started on treatment last week. Patient called on Monday stating that she had a fever of 103 degrees F and she was experiencing some sore throat and cough. She received Keytruda 3 days prior and she has been on oral lenvatinib. No other symptoms such as headache or dizziness, no chills, dysuria, diarrhea or abdominal pain. She was advised to come to the emergency department for further evaluation. In the ED pt was afebrile, tachycardic up to 117, and oxygen saturation into the 60s on RA with ambulation, as well as desatting into the mid 80s on RA at rest. Labs were significant for leukocytosis of 20.8, sodium 131, and alk-phos 143, otherwise grossly unremarkable. Tested negative for influenza type a and B, RSV, COVID. CTA of chest found a mosaic attenuation pattern with mild small airway thickening, suggesting small airway disease secondary to an infectious or inflammatory etiology. Also redemonstrated numerous findings from previous exams. EKG demonstrated normal sinus rhythm without evidence of significant ST elevations or depressions. Pt was treated with IVF and cefepime. She was admitted to the hospital for treatment and further evaluation of acute hypoxic respiratory failure in the setting of community acquired pneumonia with sepsis. She is feeling better today. She has not had any fevers since admission. Her sore throat and cough has improved. Review of Systems - Constitutional Denies night sweats - Cardiovascular Reports no additional cardiovascular complaints - Respiratory Reports no additional respiratory complaints - Gastrointestinal Reports no additional gastrointestinal complaints - Neurologic Reports no additional neurologic complaints, Denies abnormal speech, Denies dizziness, Denies headache(s), Denies numbness, Denies tingling, Denies weakness [facility] Medical History: Medical History (Last Reviewed 11/11/23 @ 21:09 by OMAIRA Foster) Anxiety Benign essential hypertension Chronic allergic bronchitis Constipation COPD (chronic obstructive pulmonary disease) COVID-19 Depression Dry eye Elevated C-reactive protein (CRP) GERD (gastroesophageal reflux disease) Lumbar degenerative disc disease Malignant neoplasm of left kidney Obstructive sleep apnea Oral thrush Palpitations Post-operative nausea and vomiting Primary osteoarthritis of knees, bilateral Pure hypercholesterolemia Renal cell carcinoma of left kidney Right foot pain Right lower lobe lung mass Status post fall Vitamin D deficiency Family History: Family History (Last Reviewed 11/11/23 @ 21:09 by OMAIRA Foster) Father Hypertension CVD (cardiovascular disease) Cancer Mother Hypertension Substance abuse Other Mental health problem Surgical History: Surgical History (Last Reviewed 11/11/23 @ 21:09 by OMAIRA Foster) H/O kidney removal History of nephrectomy Hx of oral surgery Hx of tonsillectomy Pulmonary nodule 1 cm or greater in diameter Social History: Social History (Last Reviewed 11/11/23 @ 21:09 by OMAIRA Foster) Living Situation History: Household Members: Spouse Household Members: Family Household Members Other:: and brother and sister Housing: House Are you a primary patient care manager to a significant other at home: No Do you presently have visiting nurse or other home services: No Alcohol History Details: 1. How often do you have a drink containing alcohol?: a. Never AUDIT-C Alcohol total score: 0 Currently Displaying Signs/Symptoms of Alcohol Withdrawal: No Tobacco History: Patient Tobacco Use Status: Former Tobacco user Tobacco use type: Cigarette Cigarette Packs Per Day: 1.5 Years Smoked: 30 Smoked in Last 30 Days: No Smoke Quit Date: 2011 e-Cigarette/Vaping Use: Currently Using Second Hand Smoke Exposure: Yes Substance Use History: Use of substances other than those prescribed or required for medical reasons: No Currently Displaying Signs/Symptoms of Drug Intoxication Withdrawal: No Domestic Abuse History: Have you been hit, kicked, punched, or otherwise hurt by someone within the past year? If so, by whom?: No Do you feel safe in your current relationship?: Yes Is there a partner from a previous relationship who is making you feel unsafe now?: No Are you made to feel afraid or neglected: No Advance Directives: Advance Directives: No Advance Directives Information Provided: No Homicidal Assessment: Do you have thoughts of harming others: None Do you have a plan to hurt others: No Plan Nutrition Assessment: Recently lost weight without trying: No Eating poorly because of decreased appetite: No Nutrition Risks: No Nutritional Risk Patient : No : No Poor oral hygiene: No Occupation Assessmet: service: No Current occupational status: disabled Home Medications and Allergies Current Medications: Current Medications Acetaminophen (Acetaminophen 325 Mg Tablet) 650 mg PO Q6H PRN PRN Reason: Pain, Mild (Pain Scale 1-3) Albuterol Sulfate (Albuterol Sulfate 90 Mcg 8 Gm Inhaler) 2 puff INHALE QID PRN PRN Reason: shortness of breath or wheezing Albuterol/Ipratropium (Albuterol/Iprat 2.5/0.5mg 3 Ml Ampul.Neb) 3 ml INHALE Q6H PRN PRN Reason: shortness of breath or wheezing Amitriptyline HCl (Amitriptyline Hcl 25 Mg Tablet) 75 mg PO BEDTIME [facility] Last Admin: 11/11/23 22:53 Dose: 75 mg Atorvastatin Calcium (Atorvastatin Calcium 10 Mg Tablet) 10 mg PO DAILY [facility] Last Admin: 11/12/23 09:21 Dose: 10 mg Benzonatate (Benzonatate 100 Mg Capsule) 100 mg PO TID PRN PRN Reason: Cough Bupropion HCl (Bupropion Hcl Xl 150 Mg Tab.Er.24h) 150 mg PO DAILY [facility] Last Admin: 11/12/23 09:21 Dose: 150 mg Calcium Carbonate (Calcium Carbonate 750 Mg Tab.Chew) 1,500 mg PO Q8H PRN PRN Reason: heartburn Last Admin: 11/12/23 02:36 Dose: 1,500 mg Clonazepam (Clonazepam 0.5 Mg Tablet) 0.5 mg PO TID PRN PRN Reason: anxiety Last Admin: 11/11/23 22:19 Dose: 0.5 mg Docusate Sodium (Docusate Sodium 100 Mg Capsule) 100 mg PO DAILY PRN PRN Reason: Constipation Enoxaparin Sodium (Enoxaparin Sodium 40 Mg/0.4 Ml Syringe) 40 mg SUBCUT Q24H [facility] Last Admin: 11/11/23 22:19 Dose: 40 mg Famotidine (Famotidine 20 Mg Tablet) 40 mg PO BEDTIME [facility] Last Admin: 11/11/23 22:19 Dose: 40 mg Fluticasone Propionate (Fluticasone Propionate 250 Mcg Blst.W.Dev) 2 puff INHALE RBID [facility] Last Admin: 11/12/23 08:42 Dose: 2 puff Gabapentin (Gabapentin 400 Mg Capsule) 400 mg PO TID [facility] Last Admin: 02/11/24 09:21 Dose: 400 mg Hydrochlorothiazide (Hydrochlorothiazide 25 Mg Tablet) 25 mg PO DAILY [facility]; Protocol Last Admin: 11/12/23 09:21 Dose: 25 mg Cefepime HCl 2 gm/ Sodium (Chloride) 50 mls @ 100 mls/hr IV Q8H [facility] Last Admin: 11/12/23 09:21 Dose: 100 mls/hr Melatonin (Melatonin 3 Mg Tablet) 6 mg PO BEDTIME PRN PRN Reason: Insomnia Nifedipine (Nifedipine Er 30 Mg Tab.Er.24) 30 mg PO BEDTIME [facility] Omeprazole (Omeprazole 40 Mg Capsule.Dr) 40 mg PO DAILY@0630 [facility] Last Admin: 11/12/23 06:48 Dose: 40 mg Ondansetron HCl (Ondansetron Hcl 4 Mg/2 Ml Vial) 4 mg IVPUSH Q8H PRN PRN Reason: Nausea and Vomiting Oxycodone HCl (Oxycodone Hcl Immed Release 5 Mg Tablet) 5 mg PO Q8H PRN PRN Reason: Pain, Moderate(Pain Scale 4-6) Sodium Chloride (0.9 % Sodium Chloride Flush 3 Ml Syringe) 3 ml IVFLUSH QSHIFT [facility] Last Admin: 11/12/23 09:20 Dose: 3 ml Tiotropium [place] (Tiotropium [place] 2.5 Mcg 1 Puff/2.5 Mcg Mist.Inhal) 2 puff INHALE RDAILY [facility] Last Admin: 11/12/23 08:42 Dose: 2 puff Vitamin D (Cholecalciferol (Vitamin D3) 25 Mcg Tablet) 50 mcg PO DAILY [facility] Last Admin: 11/12/23 09:21 Dose: 50 mcg Home Medications Medication Instructions Recorded Confirmed Type atorvastatin 10 mg tablet 10 mg PO DAILY 09/28/23 11/12/23 History dexlansoprazole 60 mg 60 mg PO DAILY@0630 for acid reflux 09/28/23 11/12/23 History capsule,biphase delayed release (Dexilant) famotidine 40 mg tablet 40 mg PO BEDTIME 09/28/23 11/12/23 History hydrochlorothiazide 25 mg tablet 25 mg PO DAILY 09/28/23 11/12/23 History nifedipine 30 mg tablet,extended 30 mg PO BEDTIME 09/28/23 11/12/23 History release nystatin 100,000 unit/mL oral 10 ml buccal TID PRN thrush 09/28/23 11/12/23 History suspension umeclidinium 62.5 mcg/actuation 1 inh inhalation DAILY 09/28/23 11/12/23 History blister powder for inhalation (Incruse Ellipta) bupropion HCl 150 mg 24 hr tablet, 150 mg PO DAILY 10/06/23 11/12/23 History extended release amitriptyline 75 mg tablet 75 mg PO BEDTIME 11/12/23 11/12/23 History clonazepam 0.5 mg tablet 0.5 mg PO BEDTIME PRN anxiety 11/12/23 11/12/23 History clonazepam 0.5 mg tablet 1 mg PO BEDTIME anxiety 11/12/23 11/12/23 History fluticasone propionate 220 1 puff inhalation BID 11/12/23 11/12/23 History mcg/actuation HFA aerosol inhaler mometasone 0.1 % topical cream 1 appl topical BID PRN Rash 11/12/23 11/12/23 History ondansetron 8 mg disintegrating 8 mg PO Q8H PRN Nausea And Vomiting 11/12/23 11/12/23 History tablet Allergies Allergy/AdvReac Type Severity Reaction Status Date / Time Sulfa (Sulfonamide Allergy Severe ANAPHYLAXIS Verified 11/11/23 15:32 Antibiotics) Penicillins Allergy Intermediate RASH Verified 11/11/23 15:32 aspirin [ASA] AdvReac Severe severe Verified 11/11/23 15:32 stomach pain NSAIDS (Non-Steroidal AdvReac Severe severe Verified 11/11/23 15:32 Anti-Inflamma stomach pain codeine [Codeine] AdvReac Intermediate NAUSEA & Verified 11/11/23 15:32 VOMITING Physical Exam Vital signs: Vital Signs Temp 98 F 11/12/23 06:56 Pulse 95 11/12/23 08:50 Resp 18 11/12/23 08:50 BP 142/74 H 11/12/23 07:23 Pulse Ox 98 11/12/23 06:56 O2 Del Method Room Air 11/12/23 06:56 O2 Flow Rate 2 11/12/23 00:00 Intake & Output 11/11/23 11/12/23 11/12/23 18:59 06:59 18:59 Intake Total 50 / 1300 1250 / 1300 Balance 50 / 1300 1250 / 1300 Intake: Intake, Oral Amount 200 / 200 Intake, IV Amount 50 / 1100 1050 / 1100 0.9 % Sodium Chloride 1,000 ml 1000 / 1000 @ 999 mls/hr IV .Q1H1M STA Rx#: [id number] cefEPime HCl 2 gm In 0.9 % 50 / 100 50 / 100 Sodium Chloride 50 ml @ 100 mls /hr IV Q8H [facility] Rx#:[id number] Other: Last Bowel Movement 11/11/23 Weight 53.07 kg Weight 53.07 kg - Constitutional Present: no acute distress - Routine HEENT Exam Head: Present: normal inspection Eye: Present: EOMI - Routine Neck Exam Present: supple. Absent: lymphadenopathy - Routine Respiratory Exam Present: decreased breath sounds. Absent: accessory muscle use - Routine Cardiovascular Exam Cardiovascular: Present: S1, S2 - Routine Abdominal Exam Present: soft - Routine Extremities Exam Absent: calf tenderness Hem/Onc Consult Result - Labs CBC & Chem 7: 11/12/23 05:17 11/12/23 05:17 Labs: Short CBC 11/11/23 11/12/23 Range/Units 16:24 05:17 WBC 20.8 H 11.2 H (4.8-10.8) X10*3/uL Hgb 11.9 L 11.2 L (12.0-16.0) g/dl Hct 36.7 L 34.7 L (37.0-47.0) % Plt Count 349 321 (160-400) X10*3/uL BMP 11/11/23 11/12/23 16:24 05:17 Sodium 131 L 137 Potassium 4.6 D 3.8 Chloride 93 L 99 Carbon Dioxide 26 28 BUN 13 9 Creatinine 0.86 0.68 Calcium 9.2 9.3 Liver Function 11/11/23 Range/Units 16:24 Total Bilirubin 0.4 (0.0-1.0) mg/dL AST 24 (5-31) U/L ALT 11 (0-31) U/L Alkaline Phosphatase 143 H (39-117) U/L Albumin 3.7 (3.5-5.0) g/dL Urine 11/11/23 Range/Units 21:19 Urine Color Yellow Urine Appearance Clear Urine pH 7.0 (5.0-9.0) Ur Specific [place] 1.020 (1.005-1.025) Urine Protein Negative (Neg-Trace) mg/dL Urine Glucose (UA) Negative (Negative) mg/dL Assessment and Plan Patient Active problem list reviewed?: Yes (1) Metastatic renal cell carcinoma to lung Status: Acute Assessment and plan: 1. This is a 68-year-old woman with metastatic renal cell carcinoma, status post left nephrectomy in 2019 now presenting with liver and lung metastasis. She is receiving lenvatinib with pembrolizumab, started on 11/07/2023. She is currently admitted for acute hypoxic respiratory failure in the setting of community-acquired pneumonia. CT angiogram performed 11/11/2023 showed no PE, centrilobular emphysematous changes, postoperative changes consistent with prior upper lobe wedge resection, mosaic attenuation pattern with small airway disease suggesting infectious or inflammatory process. Large right hepatic lobe mass lesion. She is currently receiving cefepime for pneumonia. Hypoxia has improved and symptomatically she is doing better. The other consideration is pneumonitis triggered by immunotherapy, she received pembrolizumab a week ago. Since she is doing better with treatment of pneumonia, she can be closely monitored for symptoms. I have advised her to hold lenvatinib until Monday. She was advised to follow-up with Dr. Delacruz next week. I thank you for this referral. - Time Spent With Patient Time Spent with Patient (in minutes): 20
--- NOTE | 2023-11-12 11:19 | HO.PM.IMPN ---
Subjective Subjective Date of Service: 11/12/23 Interval History: seen and examined this morning follow up for pneumonia reports dry cough, no fever this am I feel like I have pneumonia Review of Systems Review of Systems: Yes all other systems are reviewed and are negative Constitutional Constitutional: Denies chills and Denies fever(s) Physical Exam Vital Signs: Vital Signs: Last Vital Signs Temp 98 F 11/12/23 06:56 Pulse 95 11/12/23 08:50 Resp 18 11/12/23 08:50 BP 142/74 H 11/12/23 07:23 Pulse Ox 98 11/12/23 06:56 O2 Del Method Room Air 11/12/23 06:56 O2 Flow Rate 2 11/12/23 00:00 BMI result Body Mass Index 20.7 Const: General: cooperative, no acute distress, alert and awake Nutritional Appearance: thin Orientation/consciousness: patient oriented x3 Resp: Other: diminished breath sounds, no wheezes appreciated Effort & Inspection: normal respiratory effort, able to speak in complete sentences, no respiratory distress and no use of accessory muscles Cardio: Rate: regular rate Heart sounds: S1 normal heart sound present and S2 normal heart sound present GI: Inspection: No distended Palpation (GI): Soft to palpation and nontender Neuro: General: patient oriented x3, moves all extremities and CN's II-XI intact bilaterally Psych: Appearance: well kempt Speech and movement: Clear speech present Affect: normal affect Objective Data Active Medications Acetaminophen (Acetaminophen 325 Mg Tablet) 650 mg PO Q6H PRN PRN Reason: Pain, Mild (Pain Scale 1-3) Albuterol Sulfate (Albuterol Sulfate 90 Mcg 8 Gm Inhaler) 2 puff INHALE QID PRN PRN Reason: shortness of breath or wheezing Albuterol/Ipratropium (Albuterol/Iprat 2.5/0.5mg 3 Ml Ampul.Neb) 3 ml INHALE Q6H PRN PRN Reason: shortness of breath or wheezing Amitriptyline HCl (Amitriptyline Hcl 25 Mg Tablet) 75 mg PO BEDTIME [facility] Last Admin: 11/11/23 22:53 Dose: 75 mg Documented By: ADÁN Atorvastatin Calcium (Atorvastatin Calcium 10 Mg Tablet) 10 mg PO DAILY [facility] Last Admin: 11/12/23 09:21 Dose: 10 mg Documented By: HO.COTEMA Benzonatate (Benzonatate 100 Mg Capsule) 100 mg PO TID PRN PRN Reason: Cough Bupropion HCl (Bupropion Hcl Xl 150 Mg Tab.Er.24h) 150 mg PO DAILY [facility] Last Admin: 11/12/23 09:21 Dose: 150 mg Documented By: OSVALDO Calcium Carbonate (Calcium Carbonate 750 Mg Tab.Chew) 1,500 mg PO Q8H PRN PRN Reason: heartburn Last Admin: 11/12/23 02:36 Dose: 1,500 mg Documented By: LYSZ Clonazepam (Clonazepam 0.5 Mg Tablet) 0.5 mg PO TID PRN PRN Reason: anxiety Last Admin: 11/11/23 22:19 Dose: 0.5 mg Documented By: ADÁN Docusate Sodium (Docusate Sodium 100 Mg Capsule) 100 mg PO DAILY PRN PRN Reason: Constipation Enoxaparin Sodium (Enoxaparin Sodium 40 Mg/0.4 Ml Syringe) 40 mg SUBCUT Q24H [facility] Last Admin: 11/11/23 22:19 Dose: 40 mg Documented By: ADÁN Famotidine (Famotidine 20 Mg Tablet) 40 mg PO BEDTIME [facility] Last Admin: 11/11/23 22:19 Dose: 40 mg Documented By: ADÁN Fluticasone Propionate (Fluticasone Propionate 250 Mcg Blst.W.Dev) 2 puff INHALE RBID [facility] Last Admin: 11/12/23 08:42 Dose: 2 puff Documented By: DESIRAE Gabapentin (Gabapentin 400 Mg Capsule) 400 mg PO TID [facility] Last Admin: 11/12/23 09:21 Dose: 400 mg Documented By: OSVALDO Hydrochlorothiazide (Hydrochlorothiazide 25 Mg Tablet) 25 mg PO DAILY [facility]; Protocol Last Admin: 11/12/23 09:21 Dose: 25 mg Documented By: OSVALDO Cefepime HCl 2 gm/ Sodium (Chloride) 50 mls @ 100 mls/hr IV Q8H [facility] Last Infusion: 11/12/23 09:59 Dose: Infused Documented By: OSVALDO Melatonin (Melatonin 3 Mg Tablet) 6 mg PO BEDTIME PRN PRN Reason: Insomnia Nifedipine (Nifedipine Er 30 Mg Tab.Er.24) 30 mg PO BEDTIME [facility] Omeprazole (Omeprazole 40 Mg Capsule.Dr) 40 mg PO DAILY@0630 [facility] Last Admin: 11/12/23 06:48 Dose: 40 mg Documented By: HUNTER Ondansetron HCl (Ondansetron Hcl 4 Mg/2 Ml Vial) 4 mg IVPUSH Q8H PRN PRN Reason: Nausea and Vomiting Oxycodone HCl (Oxycodone Hcl Immed Release 5 Mg Tablet) 5 mg PO Q8H PRN PRN Reason: Pain, Moderate(Pain Scale 4-6) Sodium Chloride (0.9 % Sodium Chloride Flush 3 Ml Syringe) 3 ml IVFLUSH QSHIFT [facility] Last Admin: 11/12/23 09:20 Dose: 3 ml Documented By: OSVALDO Tiotropium [place] (Tiotropium [place] 2.5 Mcg 1 Puff/2.5 Mcg Mist.Inhal) 2 puff INHALE RDAILY [facility] Last Admin: 11/12/23 08:42 Dose: 2 puff Documented By: DESIRAE Vitamin D (Cholecalciferol (Vitamin D3) 25 Mcg Tablet) 50 mcg PO DAILY [facility] Last Admin: 11/12/23 09:21 Dose: 50 mcg Documented By: OSVALDO Labs 11/12/23 05:17 11/12/23 05:17 Labs: Laboratory Results - last 24 hr 11/11/23 11/11/23 11/11/23 16:23 16:24 21:19 MCV 80.7 MCH 26.2 L MCHC 32.4 RDW 13.0 Plt Count 349 MPV 9.0 L Immature Gran % (Auto) 0.5 H Neut % (Auto) 86.5 H Lymph % (Auto) 4.6 L [place] % (Auto) 6.3 Eos % (Auto) 1.6 Baso % (Auto) 0.5 Lymph # (Auto) 1.0 L [place] # (Auto) 1.3 H Eos # (Auto) 0.3 Baso # (Auto) 0.1 Abs Immat Gran (auto) 0.10 H Absolute Neuts (auto) 18.0 H Absolute Nucleated RBC 0.000 Nucleated RBC % (auto) 0.0 PT 13.0 INR 1.1 Anion Gap 17 Estim Creat Clear Calc 52.4 Estimated GFR > 60 Random Glucose 96 Lactic Acid 1.1 Calcium 9.2 Total Bilirubin 0.4 AST 24 ALT 11 Alkaline Phosphatase 143 H Total Protein 7.8 Albumin 3.7 Urine Color Yellow Urine Appearance Clear Urine pH 7.0 Ur Specific [place] 1.020 Urine Protein Negative Urine Glucose (UA) Negative Urine Ketones Negative Urine Blood Negative Urine Nitrite Negative Ur Leukocyte Esterase Trace H Urine RBC 0-2 Urine WBC 0-5 Ur Squamous Epith Cells 0-2 Urine Bacteria None Seen Hyaline Casts 0-2 Influenza Type A (PCR) NEGATIVE Influenza Type B (PCR) NEGATIVE RSV RNA Qual (PCR) NEGATIVE SARS-CoV-2 RNA (RT-PCR) NEGATIVE 11/12/23 05:17 MCV 81.6 MCH 26.4 L MCHC 32.3 RDW 13.0 Plt Count 321 MPV 9.0 L Immature Gran % (Auto) Neut % (Auto) Lymph % (Auto) [place] % (Auto) Eos % (Auto) Baso % (Auto) Lymph # (Auto) [place] # (Auto) Eos # (Auto) Baso # (Auto) Abs Immat Gran (auto) Absolute Neuts (auto) Absolute Nucleated RBC 0.000 Nucleated RBC % (auto) 0.0 PT INR Anion Gap 14 Estim Creat Clear Calc 66.4 Estimated GFR > 60 Random Glucose 83 Lactic Acid Calcium 9.3 Total Bilirubin AST ALT Alkaline Phosphatase Total Protein Albumin Urine Color Urine Appearance Urine pH Ur Specific [place] Urine Protein Urine Glucose (UA) Urine Ketones Urine Blood Urine Nitrite Ur Leukocyte Esterase Urine RBC Urine WBC Ur Squamous Epith Cells Urine Bacteria Hyaline Casts Influenza Type A (PCR) Influenza Type B (PCR) RSV RNA Qual (PCR) SARS-CoV-2 RNA (RT-PCR) Assessment and Plan (1) Pneumonia: Status: Acute (2) Metastatic renal cell carcinoma to lung: Status: Acute (3) Liver lesion: Status: Acute Plan This is a 68-year-old female with a PMH significant for?renal cell carcinoma (s/p left nephrectomy in 01/2020) with metastasis to the liver and lungs currently on chemotherapy started 11/07/2023, COPD on prn home O2, HTN, HLD, and restless leg syndrome who presented to the ED for evaluation of fever admitted to the hospital for acute hypoxic respiratory failure in the setting of community acquired pneumonia with sepsis. Acute hypoxic respiratory failure in the setting of community-acquired pneumonia with sepsis Pt with reported 103.2 fever at home, cough, difficulty breathing, CTA with evidence of likely pneumonia, desatting into 60s with ambulation Patient met sepsis criteria with tachycardia and leukocytosis; lactic acid WNL. tachycardia resolved, white count trending down, afebrile since admission continue IV cefepime 2 g q8h, started 11/11/2023 Blood cultures pending Renal cell carcinoma with metastasis to liver and lungs recently started treatment with pembrolizumab and lenvatinib Oncology consult pending hold lenvatinib during hospitalization mild hyponatremia resolved HTN Continue nifedipine, hydrochlorothiazide COPD Not in acute exacerbation Continue home inhalers GERD Continue famotidine, PPI Restless leg syndrome Continue gabapentin Mood disorder Continue klonopin, amitriptyline, gabapentin Full Code DVT Prophylaxis: Lovenox Requires ongoing inpatient stay for treatment of?acute hypoxic respiratory failure in the setting of pneumonia with sepsis. Given patient's significant comorbidities including renal cell carcinoma with metastasis to liver and lungs as well as immunocompromised state having recently started oral chemotherapy, patient is at risk for quickly decompensated and requires hospitalization for administration of IV antibiotics and close monitoring of labs and vitals. Quality Stroke Does the patient have a stroke diagnosis?: No VTE Prior VTE?: No VTE Risk Level:: Medical - moderate - high VTE Device Contraindication: Treatment Not Indicated VTE Drug Contraindication: N/A - Med Ordered
[2023-11-12 15:26] VITALS: BP 148/79; PULSE 94; RESP 18; TEMP 36.6; O2SAT 92
--- NOTE | 2023-11-12 15:45 | MHC.CM.PN ---
PT REPORTS SHE LIVES WITH HER , DISABLED BROTHER AND SISTER SHE IS INDEPENDENT WITH MOST CARE BUT SAYS [facility] IS SETTING UP IN HOME SERVICES FOR HER NEXT WEEK SHE USES A ROLLATOR TO AMBULATE SHE COMPLETED A HCP TODAY, NOW ON FILE PCP: JUMANA HAY IMM DELIVERED DCP: HOME NO SERVICES VIA FAM[facility] TRANSPORT
[2023-11-12] MEDS: clonazePAM 1 MG TABLET PO (22:40)
[2023-11-12] MEDS: Famotidine 20 MG TABLET 40 MG PO (22:41)
[2023-11-12] MEDS: Amitriptyline HCl 25 MG TABLET 75 MG PO (22:41)
[2023-11-12] MEDS: Melatonin 3 MG TABLET 6 MG PO (22:41)
[2023-11-12] MEDS: NIFEdipine ER 30 MG TAB.ER.24 PO (22:42)
[2023-11-12] MEDS: Enoxaparin Sodium 40 MG/0.4 ML SYRINGE SUBCUT (22:43)
[2023-11-12 23:49] VITALS: BP 155/88; PULSE 91; RESP 18; TEMP 36.1; O2SAT 95
[2023-11-13] MEDS: cefEPime HCl 2 GM in 0.9 % Sodium Chloride 50 ML IV ×2 (00:55→08:05)
[2023-11-13] MEDS: 0.9 % Sodium Chloride Flush 3 ML SYRINGE IVFLUSH ×2 (01:02→08:01)
[2023-11-13 05:30] VITALS: BP 115/67; PULSE 81; RESP 18; TEMP 36.4; O2SAT 96
[2023-11-13] MEDS: Omeprazole 40 MG CAPSULE.DR PO (05:58)
[2023-11-13 06:59] VITALS: BP 112/63; PULSE 81; RESP 16; TEMP 36; O2SAT 97
[2023-11-13] MEDS: Tiotropium Bromide 2.5 mcg 1 PUFF/2.5 MCG MIST.INHAL 2 PUFF INHALE (07:53)
[2023-11-13] MEDS: Fluticasone Propionate 250 MCG BLST.W.DEV 2 PUFF INHALE (07:53)
[2023-11-13 07:55] VITALS: PULSE 81; RESP 16; O2SAT 94
[2023-11-13] MEDS: Atorvastatin Calcium 10 MG TABLET PO (08:01)
[2023-11-13] MEDS: Cholecalciferol (Vitamin D3) 25 MCG TABLET 50 MCG PO (08:01)
[2023-11-13] MEDS: Gabapentin 400 MG CAPSULE PO (08:01)
[2023-11-13] MEDS: buPROPion HCl XL 150 MG TAB.ER.24H PO (08:01)
[2023-11-13] MEDS: hydroCHLOROthiazide 25 MG TABLET PO (08:01)
--- NOTE | 2023-11-13 09:34 | MHC.CLN ---
NUTRITION SUPPLEMENT ORDERED BY PROVIDER. [employer] PROVIDES 700 KCALS, 40 G PROTEIN. INTAKE AT MEALS APPEARS GOOD. RD TO MONITOR WEEKLY.
--- NOTE | 2023-11-13 10:11 | PM.DS ---
DS: Providers Provider Date of Service: 11/13/23 Date of admission: 11/11/23 20:37 Primary care physician: Dominic Lin MD Consults: 11/11/23 20:47 Consult to Hematology / Oncology Routine Consulting Provider: Jessika Delacruz Reason for consultation: Pt on lenvatinib, admitted for pneumonia DS: Diagnosis Discharge Diagnosis (1) Metastatic renal cell carcinoma to lung: Status: Acute DS: Summary Hospital Course Hospital Course: History and physical as per admitting provider. Pt is a 68-year-old female with a PMH significant for?renal cell carcinoma (s/p left nephrectomy in 01/2020) with metastasis to the liver and lungs currently on chemotherapy (oral lenvatinib, started 11/07/2023), COPD on prn home O2, HTN, HLD, and restless leg syndrome who presents to the ED for evaluation of fever. Pt states she off this morning and took her temperature which she measured at 103.2 degrees and improved with Tylenol. Patient recently started oral chemotherapy on Monday; she called her oncologist who referred her to the ED for further evaluation. Patient states she was around her daughter on Monday who then became sick on Monday. Has had an increased cough for the past few days, nonproductive but ?starting to feel deep?, and used her prn home O2 today for the first time in a long time. Patient denies chest pain/pressure, palpitations. Nausea, vomiting, abdominal pain. Of note, has a home pulse ox and reports she normally sats 93-95% on RA. Patient recently had bronchoscopy and VATS right middle lobe wedge resection biopsy on 10/06/2023. In the ED pt was afebrile, tachycardic up to 117, and desatting into the 60s on RA with ambulation, as well as desatting into the mid 80s on RA at rest. Labs were significant for leukocytosis of 20.8, sodium 131, and alk-phos 143, otherwise grossly unremarkable. Tested negative for influenza type a and B, RSV, COVID. CTA of chest found a mosaic attenuation pattern with mild small airway thickening, suggesting small airway disease secondary to an infectious or inflammatory etiology. Also redemonstrated numerous findings from previous exams. EKG demonstrated normal sinus rhythm without evidence of significant ST elevations or depressions. Pt was treated with IVF and cefepime. Pt will be admitted to the hospital for treatment and further evaluation of acute hypoxic respiratory failure in the setting of community acquired pneumonia with sepsis. 68-year-old woman treated for acute hypoxic respiratory failure secondary to community-acquired pneumonia with sepsis. Patient presented fever, shortness of breath and cough with chest CT evidence of pneumonia. She had an episode of desaturation to 60% with ambulation. She was treated with IV cefepime and supplemental oxygen. Blood cultures have remained negative. Due to her history of renal cell carcinoma with Mets to the liver and lungs her chemotherapeutic medications were held. She was seen and evaluated by her oncology team. Plan is for her to restart her chemotherapeutic medication on Monday. Patient is off oxygen at this time. Will continue 5 more days of oral antibiotics. Plan to discharge home. Renal cell carcinoma with metastasis to liver and lungs. Continue treatment as per oncology Hypertension. Continue nifedipine and hydrochlorothiazide COPD. Continue home inhalers GERD. Continue PPI Restless legs syndrome. Continue gabapentin Mental health. Continue Klonopin, amitriptyline Time Attestation Discharge coordination time: Greater than 30 minutes Quality: Safe Use of Opioids Does Pt have an Active Cancer Diagnosis on the Problem List?: No Quality: Stroke Does the patient have a stroke diagnosis?: No Physical Exam Vital Signs: Vital Signs: Last Vital Signs Temp 96.8 F 11/13/23 06:59 Pulse 81 11/13/23 07:55 Resp 16 11/13/23 07:55 BP 112/63 11/13/23 06:59 Pulse Ox 97 11/13/23 06:59 O2 Del Method Nasal Cannula 11/13/23 06:59 O2 Flow Rate 2 11/13/23 06:59 BMI result Body Mass Index 20.7 Appearing in no acute distress head is normocephalic atraumatic eyes pupils are PERRLA sclera is anicteric mouth throat mucous membranes are intact and moist neck is supple no lymphadenopathy, no JVD noted lung sounds are clear to auscultation heart regular rate rhythm, clear S1, S2 positive bowel sounds, abdomen is soft, nontender neuro patient is alert x3, no focal deficits DS: Data Data Completed and Pending Completed studies during hospitalization [Text1]: Procedures Drainage of Right Pleural Cavity with Drainage Device, Percutaneous Endoscopic Approach (10/06/23) Excision of Right Middle Lung Lobe, Percutaneous Endoscopic Approach, Diagnostic (10/06/23) Release Right Middle Lung Lobe, Percutaneous Endoscopic Approach (10/06/23) Release Right Upper Lung Lobe, Percutaneous Endoscopic Approach (10/06/23) Labs on day of discharge: Preliminary micro results at discharge 11/11/23 16:24 Blood Culture - Preliminary Blood - Venous No growth after 24 hours. 11/11/23 16:24 Blood Culture - Preliminary Blood - Venous No growth after 24 hours. Discharge Plan Discharge Anticipated Discharge Date/Time: 11/13/23 09:50 Patient Disposition: Home, Self-Care Discharge Diagnosis: Acute hypoxic respiratory failure Community-acquired pneumonia Sepsis Hyponatremia Referrals: Dominic Lin MD [Primary Care Provider] - 10 days Discharge Medications: New benzonatate 100 mg Capsule 100 mg PO TID PRN (Reason: Cough) Qty: 9 0RF levofloxacin 750 mg tablet 750 mg PO DAILY Qty: 5 0RF Continued betamethasone dipropionate 0.05 % cream 1 appl topical BID PRN (Reason: skin irritation) Qty: 45 0RF gabapentin 400 mg capsule 400 mg PO TID 90 Days Qty: 270 1RF cholecalciferol (vitamin D3) 50 mcg (2,000 unit) capsule 50 mcg PO DAILY 90 Days Qty: 90 3RF oxycodone-acetaminophen 5-325 mg tablet 1 tab PO Q8H PRN (Reason: low back pain) 7 Days Qty: 21 0RF nystatin 100,000 unit/mL suspension 10 ml buccal TID PRN (Reason: thrush) Rx Instructions: swish 1/2 of dose in each side of the mouth for up to 5 minutes, then spit out the medicine atorvastatin 10 mg tablet 10 mg PO DAILY famotidine 40 mg tablet 40 mg PO BEDTIME nifedipine 30 mg tablet extended release 30 mg PO BEDTIME hydrochlorothiazide 25 mg tablet 25 mg PO DAILY dexlansoprazole [Dexilant] 60 mg capsule,biphase delayed releas 60 mg PO DAILY@0630 Incruse Ellipta 62.5 mcg/actuation blister with device 1 inh inhalation DAILY bupropion HCl 150 mg tablet extended release 24 hr 150 mg PO DAILY lenvatinib 20 mg/day (10 mg x 2) Capsule 20 mg PO DAILY Qty: 60 4RF ondansetron 8 mg tablet,disintegrating 8 mg PO Q8H PRN (Reason: Nausea And Vomiting) fluticasone propionate 220 mcg/actuation HFA aerosol inhaler 1 puff INHALATION BID amitriptyline 75 mg tablet 75 mg PO BEDTIME clonazepam 0.5 mg tablet 1 mg PO BEDTIME clonazepam 0.5 mg tablet 0.5 mg PO BEDTIME PRN (Reason: anxiety) mometasone 0.1 % cream 1 appl topical BID PRN (Reason: Rash) albuterol sulfate 90 mcg/actuation HFA aerosol inhaler 2 puff inhalation QID PRN (Reason: shortness of breath or wheezing) Qty: 8.5 6RF ipratropium-albuterol 0.5 mg-3 mg(2.5 mg base)/3 mL solution for nebulization 3 ml inhalation Q6H PRN (Reason: shortness of breath or wheezing) 30 Days Qty: 180 6RF Discharge Orders: Discharge Order (Routine); Ordered 11/13/23 Ordered By: Amy Kwan Diet: Advance to usual diet Activity on Discharge: As tolerated Stand Alone Forms: Patient Portal Discharge page, Against Medical Advice Care Plan Goals: Resume chemotherapeutic medication on monday Health Concerns: Acute hypoxic respiratory failure Community-acquired pneumonia Sepsis Hyponatremia Plan of Treatment: Follow-up with primary care provider as needed Take all medications as prescribed Assessment: See discharge summary
--- NOTE | 2023-11-13 10:15 | MHC.CM.PN ---
pt dcd home no skilld servies needed
--- NOTE | 2023-11-13 11:36 | PC.NURSE ---
Pt stated she spilt coffee on herself after breakfast. Skin assessment with no visible valdivia, Pt states The coffee was not hot.
== END 2023-11-13 11:37 | disposition home or self-care (01) | DRG 871 ==
LOC: HO.ED 19:22 → HO.EDOVER 21:05 → HO.S3 11-12 01:05
PROVIDERS: Nurse Practitioner Family; Admitting Provider Student in an Organized Health Care Education/Training Program; Emergency Provider Emergency Medicine; PCP Internal Medicine; Visit Provider Nurse Practitioner Acute Care
DX: A41.9 Sepsis, unspecified organism (principal); J18.9 Pneumonia, unspecified organism; J96.01 Acute respiratory failure with hypoxia; E87.1 Hypo-osmolality and hyponatremia; D84.821 Immunodeficiency due to drugs; J44.0 Chronic obstructive pulmonary disease with (acute) lower respiratory infection; C64.2 Malignant neoplasm of left kidney, except renal pelvis; C78.01 Secondary malignant neoplasm of right lung; C78.7 Secondary malignant neoplasm of liver and intrahepatic bile duct; F39 Unspecified mood [affective] disorder; G25.81 Restless legs syndrome; I10 Essential (primary) hypertension; K21.9 Gastro-esophageal reflux disease without esophagitis; Z90.5 Acquired absence of kidney; G47.33 Obstructive sleep apnea (adult) (pediatric); Z20.822 Contact with and (suspected) exposure to COVID-19; Z99.81 Dependence on supplemental oxygen; Z90.2 Acquired absence of lung [part of]; Z79.51 Long term (current) use of inhaled steroids; Z79.69 Long term (current) use of other immunomodulators and immunosuppressants; Z79.899 Other long term (current) drug therapy
CPT/HCPCS: 0241U; 36415; 71046; 71275; 80048; 80053; 81001; 83605; 84484; 85025; 85027; 85610; 87040; 93005; 99285; J0692; J1650; Q9967

== ENCOUNTER → 2023-11-11 17:26 | Outpatient (BNV) | payer OTHER, SELFPAY | PROVIDERS: Admitting Provider Student in an Organized Health Care Education/Training Program; Emergency Provider Emergency Medicine; PCP Internal Medicine; Visit Provider Internal Medicine | DX: R00.0 Tachycardia, unspecified (principal) | CPT/HCPCS: 93010 ==

== ENCOUNTER → 2023-11-11 20:37 | Outpatient (BNV) | payer OTHER, SELFPAY | PROVIDERS: Admitting Provider Student in an Organized Health Care Education/Training Program; Emergency Provider Emergency Medicine; PCP Internal Medicine; Visit Provider Physician Assistant Medical | DX: C78.00 Secondary malignant neoplasm of unspecified lung (principal); C64.9 Malignant neoplasm of unspecified kidney, except renal pelvis; J96.01 Acute respiratory failure with hypoxia; J18.9 Pneumonia, unspecified organism; A41.9 Sepsis, unspecified organism | CPT/HCPCS: 99223; 99233; 99238 ==

== ENCOUNTER → 2023-11-11 20:37 | Outpatient (BNV) | payer OTHER, SELFPAY | PROVIDERS: Admitting Provider Student in an Organized Health Care Education/Training Program; Emergency Provider Emergency Medicine; PCP Internal Medicine; Visit Provider Internal Medicine | DX: C64.1 Malignant neoplasm of right kidney, except renal pelvis (principal); C78.00 Secondary malignant neoplasm of unspecified lung | CPT/HCPCS: 99222 ==

== ENCOUNTER 2023-12-28 15:41 | Outpatient (AMB) | payer OTHER, SELFPAY ==
[2023-12-28 15:46] VITALS: BP 130/72; TEMP 36.8; BMI 21.2
--- NOTE | 2023-12-28 15:46 | AM.OFFWIN_ITS ---
Intake Vital Signs 12/28/23 15:46 Height 5 ft 2 in Weight 116 lb BMI 21.2 BP 130/72 Blood Pressure Location Rt brachial Position Sitting Temp 98.2 F Temp Source Oral Intake Visit Reasons: EP ?UTI Intake Note: Pt is here today for a possible UTI, Pt states it valdivia to urinate. Patient Tobacco Use Status: Former Tobacco user Quit Date: 2011 Allergies Sulfa (Sulfonamide Antibiotics) Allergy (Severe, Verified 12/28/23 15:46) ANAPHYLAXIS Penicillins Allergy (Intermediate, Verified 12/28/23 15:46) RASH aspirin [ASA] Adverse Reaction (Severe, Verified 12/28/23 15:46) severe stomach pain NSAIDS (Non-Steroidal Anti-Inflamma Adverse Reaction (Severe, Verified 12/28/23 15:46) severe stomach pain codeine [Codeine] Adverse Reaction (Intermediate, Verified 12/28/23 15:46) NAUSEA & VOMITING Do you need a note to return to daycare/school/sports/work: No HPI HPI Comments History of Present Illness Details 68 y/o female patient who presents to w kanwal in clinic with c/o Urinary symptoms. Reports burning and pain with urination. Symptoms started 4 days ago. [facility] Medical History Right lower lobe lung mass Post-operative nausea and vomiting Dry eye COVID-19 COPD (chronic obstructive pulmonary disease) Malignant neoplasm of left kidney Vitamin D deficiency Depression Primary osteoarthritis of knees, bilateral Pure hypercholesterolemia Elevated C-reactive protein (CRP) Palpitations Constipation Obstructive sleep apnea Anxiety Benign essential hypertension Renal cell carcinoma of left kidney Oral thrush Lumbar degenerative disc disease Status post fall Right foot pain Chronic allergic bronchitis GERD (gastroesophageal reflux disease) Surgical History H/O kidney removal Hx of oral surgery Hx of tonsillectomy Pulmonary nodule 1 cm or greater in diameter History of nephrectomy Family History Father Hypertension CVD (cardiovascular disease) Cancer Mother Hypertension Substance abuse Other Mental health problem Social History Household Members: Spouse and Family Household Members Other:: and brother and sister Housing: House Are you a primary clinical manager home care to a significant other at home: No Do you presently have visiting nurse or other home services: No Alcohol intake: never Comment: COUNTS CORRECT Patient Tobacco Use Status: Former Tobacco user Quit Date: 2011 Tobacco use type: Cigarette Cigarette Packs Per Day: 1.5 Years Smoked: 30 e-Cigarette/Vaping Use: Currently Using Second Hand Smoke Exposure: Yes service: No Current occupational status: disabled Cognitive needs: No Hearing needs: No Vision needs: No Physical Exam Vital Signs: Last Vital Signs Temp 98.2 F 12/28/23 15:46 BP 130/72 12/28/23 15:46 BMI result Body Mass Index 21.2 Const General: comfortable and no acute distress Orientation/consciousness: patient oriented x3 General: Yes no CVA tenderness Back/Spine/Pelvis Back: no CVA tenderness Cervical Spine: cervical ROM normal Thoracic/Lumbar Spine: thoraco-lumbar ROM normal Neuro General: patient oriented x3 and moves all extremities Psych Speech and movement: Normal speech and movement present Results AMB Urinalysis, Automated UA Leukoctes 500 Magy/uL Last Edit by Celsa Johnson MA on 12/28/23 16:09 UA Nitrite Last Edit by Celsa Johnson MA on 12/28/23 16:09 UA Urobilinogen 0.2 mg/dL Last Edit by Celsa Johnson MA on 12/28/23 16:09 UA Protein 300 mg/dL Last Edit by Celsa Johnson MA on 12/28/23 16:09 UA pH 6.0 Last Edit by Celsa Johnson MA on 12/28/23 16:09 UA Blood 25 Scar/uL Last Edit by Celsa Johnson MA on 12/28/23 16:09 UA Specific [place] 1.020 Last Edit by Celsa Johnson MA on 12/28/23 16:0 9 UA Ketone Positive Last Edit by Celsa Johnson MA on 12/28/23 16:09 UA Bilirubin 1 mg/dL Last Edit by Celsa Johnson MA on 12/28/23 16:09 UA Glucose mg/dL Last Edit by Celsa Johnson MA on 12/28/23 16:09 Assessment & Plan Assessment & Plan (1) Dysuria: Code(s): R30.0 - Dysuria Plan: - Hydrate with plenty of water - Take medicine as directed. Medications: New ciprofloxacin HCl 500 mg PO BID 14 tabs 0RF 7 days R30.0 - Dysuria Coding Level of Care Code Est Pt Level 3 (61522) Diagnoses Dysuria R30.0 Time Spent (min) 15
== END 2023-12-28 16:27 | disposition home or self-care (01) ==
PROVIDERS: PCP Internal Medicine; Visit Provider Nurse Practitioner Family
DX: R30.0 Dysuria (principal)
CPT/HCPCS: 99213

== ENCOUNTER 2024-01-18 12:26 | Emergency (ER) | payer OTHER, SELFPAY ==
--- NOTE | ~2024-01-18 | XR_ITS ---
EXAMINATION: XR CHEST CLINICAL INFORMATION: Hypoxia COMPARISON: Chest radiograph and CT angiogram chest 11/11/2023 TECHNIQUE: Frontal view of the chest was obtained. FINDINGS: Compared to the prior study from 11/11/2023 there is been no interval change. Again noted is volume loss in the right lung and right perihilar scarring related to prior right upper lobe wedge resection. Heart size normal. No evidence of CHF. No new infiltrates, pleural effusions or lung masses. No acute osseous abnormality. XR/XR chest 1V IMPRESSION: No acute intrathoracic disease. Postsurgical changes right lung.
--- NOTE | ~2024-01-18 | CT_ITS ---
EXAMINATION: CT HEAD WITHOUT CONTRAST CLINICAL INFORMATION: Altered mental status and headache. COMPARISON: Head CT dated 03/10/2023. TECHNIQUE: Contiguous axial imaging was performed from the skullbase to vertex without intravenous administration of contrast. This CT examination was performed using dose optimization techniques as appropriate, variously including the following: *Automated exposure control *Adjustment of mA and/or kV according to patient size (this includes techniques or standardized protocols for targeted exams where dose is matched to indication/reason for exam; i.e. extremities or head) *Use of iterative reconstruction technique DLP: 591 mGy-cm. FINDINGS: There is no evidence of acute intracranial hemorrhage or territorial infarction. No abnormal mass effect or midline shift is seen. No extra-axial fluid collections are identified. Patchy areas of low-density change are present in the bifrontal periventricular white matter, as on prior imaging. [id number]-[id number] generalized brain parenchymal volume loss noted with commensurate ex vacuo prominence of the ventricles. The osseous structures and soft tissues are normal. The mastoid air cells and visualized portions of the paranasal sinuses are well aerated. CT/CT head/brain wo IV con IMPRESSION: No acute intracranial pathology. Usaz-ez-xakzuwex chronic white matter microangiopathy and parenchymal volume loss.
[2024-01-18 12:53] VITALS: BP 107/73; PULSE 101; RESP 18; TEMP 36.6; O2SAT 85; BMI 19.6
--- NOTE | 2024-01-18 12:57 | ED.GENADULT ---
HPI - General Adult General Chief complaint: General Medical Stated complaint: quest uti Time Seen by Provider: 01/18/24 20:33 Source: patient, RN notes reviewed and old records reviewed Mode of arrival: ambulatory Limitations: no limitations History of Present Illness HPI narrative: 68-year-old female with past medical history significant for COPD on p.r.n. O2, renal cancer status post nephrectomy, dizziness, pulmonary nodules, sleep apnea, depression, osteoarthritis, hyperlipidemia, hypertension presents for evaluation of burning with urination urinary frequency. Patient reports that she has been on antibiotics twice in the last few weeks for UTIs She reports feeling unwell since Monday, 3 days ago. She states that her only symptoms are burning with urination and frequency as well as dark urine. She denies any fevers, chills, cough, shortness of breath The patient follows with Urology, Dr. Mendoza She has no other complaints or concerns at this time Related Data Home Medications ?Medication ?Instructions ?Recorded ?Confirmed atorvastatin 10 mg tablet 10 mg PO DAILY 09/28/23 11/12/23 famotidine 40 mg tablet 40 mg PO BEDTIME 09/28/23 11/12/23 hydrochlorothiazide 25 mg tablet 25 mg PO DAILY 09/28/23 11/12/23 nifedipine 30 mg tablet,extended 30 mg PO BEDTIME 09/28/23 11/12/23 release nystatin 100,000 unit/mL oral 10 ml buccal TID PRN thrush 09/28/23 11/12/23 suspension umeclidinium 62.5 mcg/actuation 1 inh inhalation DAILY 09/28/23 11/12/23 blister powder for inhalation (Incruse Ellipta) bupropion HCl 150 mg 24 hr tablet, 150 mg PO DAILY 10/06/23 11/12/23 extended release amitriptyline 75 mg tablet 75 mg PO BEDTIME 11/12/23 11/12/23 fluticasone propionate 220 1 puff inhalation BID 11/12/23 11/12/23 mcg/actuation HFA aerosol inhaler mometasone 0.1 % topical cream 1 appl topical BID PRN Rash 11/12/23 11/12/23 ondansetron 8 mg disintegrating 8 mg PO Q8H PRN Nausea And Vomiting 11/12/23 11/12/23 tablet Previous Rx's ?Medication ?Instructions ?Recorded betamethasone dipropionate 0.05 % 1 appl topical BID PRN skin 10/07/22 topical cream irritation #45 grams albuterol sulfate 90 mcg/actuation 2 puff inhalation QID PRN 12/28/22 aerosol inhaler shortness of breath or wheezing #8.5 grams gabapentin 400 mg capsule 400 mg PO TID 90 days #270 caps 06/28/23 cholecalciferol (vitamin D3) 50 50 mcg PO DAILY 90 days #90 caps 07/10/23 mcg (2,000 unit) capsule ipratropium 0.5 mg-albuterol 3 mg 3 ml inhalation Q6H PRN shortness 07/25/23 (2.5 mg base)/3 mL nebulization of breath or wheezing 30 days #180 soln mL oxycodone-acetaminophen 5 mg-325 1 tab PO Q8H PRN low back pain 7 10/11/23 mg tablet days #21 tabs lenvatinib 20 mg/day (10 mg x 2) 20 mg PO DAILY #60 caps 10/20/23 capsule benzonatate 100 mg capsule 100 mg PO TID PRN Cough #9 caps 11/13/23 sennosides 8.6 mg capsule (senna) 8.6 mg PO BID PRN constipation #60 12/05/23 caps levothyroxine 25 mcg tablet 25 mcg PO DAILY #30 tabs 12/19/23 (Synthroid) clonazepam 0.5 mg tablet 0.5 mg PO TID PRN anxiety 30 days 12/25/23 #90 tabs pantoprazole 40 mg tablet,delayed 40 mg PO DAILY #90 tabs 12/26/23 release nitrofurantoin 100 mg PO Q12H 7 days #14 caps 12/29/23 monohydrate/macrocrystals 100 mg capsule (Macrobid) Magic Mouthwash 10 ml PO QID #240 mL 01/08/24 Diphen/Lido/Antacid 1:1:1 240 mL suspension triamcinolone acetonide 0.1 % 1 appl dental BID #30 grams 01/09/24 dental paste Allergies Allergy/AdvReac Type Severity Reaction Status Date / Time Sulfa (Sulfonamide Allergy Severe ANAPHYLAXIS Verified 01/18/24 13:05 Antibiotics) Penicillins Allergy Intermediate RASH Verified 01/18/24 13:05 aspirin [ASA] AdvReac Severe severe Verified 01/18/24 13:05 stomach pain NSAIDS (Non-Steroidal AdvReac Severe severe Verified 01/18/24 13:05 Anti-Inflamma stomach pain codeine [Codeine] AdvReac Intermediate NAUSEA & Verified 01/18/24 13:05 VOMITING Review of Systems Constitutional: Constitutional: Denies body ache(s), Denies chills, Denies fever(s) and Reports malaise Eyes: Eyes: Denies blurry vision ENT: Denies sore throat Cardiovascular: Cardiovascular: Denies chest pain and Denies dyspnea Respiratory: Respiratory: Denies cough and Denies dyspnea Gastrointestinal: Gastrointestinal: Denies abdominal pain, Denies nausea and Denies vomiting Genitourinary: Genitourinary: Denies difficulty voiding, Reports dysuria, Denies vaginal discharge and Denies vaginal pruritus Comments: Reports dark orange urine Musculoskeletal: Musculoskeletal: Denies back pain Integumentary/Breasts: Skin/Breast: Denies rash PMFSH Past Medical History Medical History Right lower lobe lung mass Post-operative nausea and vomiting Dry eye COVID-19 COPD (chronic obstructive pulmonary disease) Malignant neoplasm of left kidney Vitamin D deficiency Depression Primary osteoarthritis of knees, bilateral Pure hypercholesterolemia Elevated C-reactive protein (CRP) Palpitations Constipation Obstructive sleep apnea Anxiety Benign essential hypertension Renal cell carcinoma of left kidney Oral thrush Lumbar degenerative disc disease Status post fall Right foot pain Chronic allergic bronchitis GERD (gastroesophageal reflux disease) Surgical History H/O kidney removal Hx of oral surgery Hx of tonsillectomy Pulmonary nodule 1 cm or greater in diameter History of nephrectomy Family History Family History Father Hypertension CVD (cardiovascular disease) Cancer Mother Hypertension Substance abuse Other Mental health problem Social History Social History Household Members: Spouse and Family Household Members Other:: and brother and sister Housing: House Are you a primary point of care specialist to a significant other at home: No Do you presently have visiting nurse or other home services: No Alcohol intake: never Comment: COUNTS CORRECT Patient Tobacco Use Status: Former Tobacco user Quit Date: 2011 Tobacco use type: Cigarette Cigarette Packs Per Day: 1.5 Years Smoked: 30 e-Cigarette/Vaping Use: Currently Using Second Hand Smoke Exposure: No Advance Directives: Yes Advance Directives on File: Yes Advance Directives Date on File: 11/29/23 service: No Current occupational status: disabled Cognitive needs: No Hearing needs: No Vision needs: No Physical Exam ED Vital Signs: Vital Signs - 24 hr 01/18/24 12:53 01/18/24 20:12 01/18/24 21:09 Temperature 98 F 98.2 F 98.0 F Pulse Rate 101 H 95 97 Respiratory Rate 18 19 15 Blood Pressure 107/73 125/79 130/76 Pulse Oximetry 85 L 92 96 Oxygen Delivery Method Room Air Nasal Cannula Nasal Cannula Oxygen Flow Rate 2 2 01/18/24 21:13 Temperature 98 F Pulse Rate 97 Respiratory Rate 15 Blood Pressure 130/76 Pulse Oximetry 96 Oxygen Delivery Method Nasal Cannula Oxygen Flow Rate 2 BMI result Body Mass Index 19.6 Const General: healthy appearing, comfortable, no acute distress, alert and awake Nutritional Appearance: well nourished Orientation/consciousness: patient oriented x3 HENMT Head: Yes normocephalic and Yes atraumatic Eyes Eyelids: Yes eyelids normal Conjunctivae: conjunctivae normal Sclerae: sclerae normal Corneas: corneas normal Pupils: Equal, round and reactive pupils present EOM: EOMs intact bilaterally Neck Neck: Yes full ROM Resp Effort & Inspection: normal respiratory effort, able to speak in complete sentences, no audible wheezes and not labored Auscultation: clear to auscultation bilaterally Cardio Rate: regular rate Rhythm: regular rhythm GI Inspection: No distended Palpation (GI): Soft to palpation, not firm, nontender, no guarding and not rigid Skin General skin exam: elasticity normal Neuro General: patient oriented x3 Cranial nerves: Yes Equal, round and reactive pupils present and Yes Bilaterally intact EOM present Cognition (Neuro): normal cognition Extrem Other: Moving all extremities well without any obvious deformities Course Course Course Narrative: This is an RME: Additional HPI, ROS, PE not included below will be deferred to primary provider. 68 year old female presents w/ brain fog and uti sx x 1 week PE hypoxia - placed on O2 patient wears oxygen intermittently at base line placed on 2 L here Medical Decision Making Medical Decision Making MDM Narrative: 68-year-old female with extensive past medical history as documented above presents for evaluation of dark urine and burning with urination. She is concerned that she has a UTI. Patient was found to be hypoxic to 88% but the patient has significant COPD history and is on p.r.n. oxygen. She was placed on 2 L and has had no further episodes of hypoxia. The patient denies any shortness of breath, cough or fevers. Her workup is largely unremarkable, she has no leukocytosis, no left shift. No anemia. Her chemistry showed elevated CO2 which goes along with her history of COPD, otherwise sodium potassium within normal limits. Chloride is just below normal. Renal function within normal limits, the patient has mild transaminitis which is slightly improved when compared to her labs from 10 days ago. Patient's urine has proteinuria, trace leukocyte esterase but no white blood cells, no bacteria in the urine, negative nitrites. Doubt acute UTI the patient was just recently on antibiotics. Plan for symptomatic treatment only Differential Diagnosis Differential Diagnoses: The differential diagnosis associated with the presentation includes UTI Cystitis Interstitial cystitis Bladder mass Pyelonephritis less likely Obstructive uropathy Lab Data MDM Lab Attestation statement: I reviewed the patient's lab results. See above 01/18/24 13:24 01/18/24 13:24 Labs: Lab Results 01/18/24 01/18/24 Range/Units 13:24 14:54 WBC 5.5 (4.8-10.8) X10*3/uL RBC 6.21 H (4.20-5.50) X10*6/uL Hgb 14.7 (12.0-16.0) g/dl Hct 48.9 H (37.0-47.0) % MCV 78.7 L (80.0-98.0) fL MCH 23.7 L (27.0-33.0) pg MCHC 30.1 L (31.0-35.0) g/dl RDW 17.1 H (11.0-16.0) % Plt Count 306 (160-400) X10*3/uL MPV 9.2 L (9.4-12.3) fL Immature Gran % (Auto) 0.4 (0.0-0.4) % Neut % (Auto) 69.4 (45-73) % Lymph % (Auto) 11.5 L (20-40) % [place]key % (Auto) 12.9 H (2-11) % Eos % (Auto) 4.2 H (0-4) % Baso % (Auto) 1.6 (0-2) % Lymph # (Auto) 0.6 L (1.2-4.9) X10*3/uL [place] # (Auto) 0.7 (0.1-1.2) X10*3/uL Eos # (Auto) 0.2 (0.0-0.4) X10*3/uL Baso # (Auto) 0.1 (0.0-0.2) X10*3/uL Abs Immat Gran (auto) 0.02 (0.00-0.03) X10*3/uL Absolute Neuts (auto) 3.8 (2.0-8.3) x10*3/uL Absolute Nucleated RBC 0.000 (0.0-0.012) X10*3/uL Nucleated RBC % (auto) 0.0 (0.0-0.2) /100WBC Sodium 137 (135-145) mmol/L Potassium 4.2 (3.3-5.1) mmol/L Chloride 95 L (96-108) mmol/L Carbon Dioxide 39 H (22-29) mmol/L Anion Gap 7 L (12-20) BUN 10 (9-16) mg/dL Creatinine 0.81 (0.5-1.4) mg/dL Estim Creat Clear Calc 53.5 Estimated GFR > 60 Random Glucose 106 (60-115) mg/dL Calcium 8.8 (8.4-10.2) mg/dL Magnesium 1.9 (1.6-2.6) mg/dL Total Bilirubin 0.4 (0.0-1.0) mg/dL AST 36 H (5-31) U/L ALT 36 H (0-31) U/L Alkaline Phosphatase 125 H (39-117) U/L Total Protein 6.8 (6.5-8.0) g/dL Albumin 3.5 (3.5-5.0) g/dL Urine Color Dark Yellow Urine Appearance Clear Urine pH 6.0 (5.0-9.0) Ur Specific [place] 1.025 (1.005-1.025) Urine Protein 30 (1+) H (Neg-Trace) mg/dL Urine Glucose (UA) Negative (Negative) mg/dL Urine Ketones Negative (Negative) mg/dL Urine Blood Negative (Negative) Urine Nitrite Negative (Negative) Ur Leukocyte Esterase Trace H (Negative) Urine RBC 0-2 (0-2) /HPF Urine WBC 0-5 (0-5) /HPF Ur Squamous Epith Cells 3-5 (0-2) /HPF Urine Bacteria None Seen (None Seen) Hyaline Casts 0-2 (0-2) /LPF Influenza Type A (PCR) NEGATIVE (Negative) Influenza Type B (PCR) NEGATIVE (Negative) RSV RNA Qual (PCR) NEGATIVE (Negative) SARS-CoV-2 RNA (RT-PCR) NEGATIVE (Negative) Independent Interpretation I performed an independent interpretation of an: Plain X-Ray Interpretation: No focal infiltrates Radiology Impression Discussion of test interpretation with radiology: I have reviewed the radiologist's reading. Radiologist Impression: Chest x-ray shows no acute cardiopulmonary disease Tests considered The following testing was considered but not selected: Consider CT scan of the abdomen pelvis, however the patient had reassuring abdominal exam Prescription Management I considered prescription management with: Antibiotic However there is no evidence of acute bacterial infection Chronic Conditions Patient?s care impacted by: Hypertension and Other (COPD) Discharge Plan Discharge Clinical Impression: Dysuria Patient Disposition: Home, Self-Care Instructions: Dysuria (ED) Additional Instructions: Your workup in the ER today was reassuring. There was no bacteria in your urine You may use [id number] azo for burning with urination Take all your other medications as prescribed Follow-up with your urologist, Dr. Mendoza call tomorrow to make an appointment Prescriptions: No Action betamethasone dipropionate 0.05 % cream 1 appl topical BID PRN (Reason: skin irritation) Qty: 45 0RF gabapentin 400 mg capsule 400 mg PO TID 90 Days Qty: 270 1RF cholecalciferol (vitamin D3) 50 mcg (2,000 unit) capsule 50 mcg PO DAILY 90 Days Qty: 90 3RF oxycodone-acetaminophen 5-325 mg tablet 1 tab PO Q8H PRN (Reason: low back pain) 7 Days Qty: 21 0RF senna 8.6 mg capsule 8.6 mg PO BID PRN (Reason: constipation) Qty: 60 5RF clonazepam 0.5 mg tablet 0.5 mg PO TID PRN (Reason: anxiety) 30 Days Qty: 90 0RF pantoprazole 40 mg tablet,delayed release (DR/EC) 40 mg PO DAILY Qty: 90 1RF nystatin 100,000 unit/mL suspension 10 ml buccal TID PRN (Reason: thrush) Rx Instructions: swish 1/2 of dose in each side of the mouth for up to 5 minutes, then spit out the medicine atorvastatin 10 mg tablet 10 mg PO DAILY famotidine 40 mg tablet 40 mg PO BEDTIME nifedipine 30 mg tablet extended release 30 mg PO BEDTIME hydrochlorothiazide 25 mg tablet 25 mg PO DAILY Incruse Ellipta 62.5 mcg/actuation blister with device 1 inh inhalation DAILY bupropion HCl 150 mg tablet extended release 24 hr 150 mg PO DAILY lenvatinib 20 mg/day (10 mg x 2) Capsule 20 mg PO DAILY Qty: 60 4RF levothyroxine [Synthroid] 25 mcg Tablet 25 mcg PO DAILY Qty: 30 3RF Magic Mouthwash Diphen/Lido/Antacid 1:1:1 240 mL Suspension 10 ml PO QID Qty: 240 4RF Rx Instructions: Lidocaine Viscous 2 % 80mL; diphenhydramine 12.5 mg/5 mL 80mL; aluminum-mag hydrox-simeth [id number]/5mL 80mL triamcinolone acetonide 0.1 % Paste 1 appl DENTAL BID Qty: 30 2RF Rx Instructions: use after food and/or drink and/or oral hygiene ondansetron 8 mg tablet,disintegrating 8 mg PO Q8H PRN (Reason: Nausea And Vomiting) fluticasone propionate 220 mcg/actuation HFA aerosol inhaler 1 puff INHALATION BID amitriptyline 75 mg tablet 75 mg PO BEDTIME mometasone 0.1 % cream 1 appl topical BID PRN (Reason: Rash) benzonatate 100 mg Capsule 100 mg PO TID PRN (Reason: Cough) Qty: 9 0RF nitrofurantoin monohyd/m-cryst [Macrobid] 100 mg capsule 100 mg PO Q12H 7 Days Qty: 14 0RF Rx Instructions: must administer with a meal/food albuterol sulfate 90 mcg/actuation HFA aerosol inhaler 2 puff inhalation QID PRN (Reason: shortness of breath or wheezing) Qty: 8.5 6RF ipratropium-albuterol 0.5 mg-3 mg(2.5 mg base)/3 mL solution for nebulization 3 ml inhalation Q6H PRN (Reason: shortness of breath or wheezing) 30 Days Qty: 180 6RF Referrals: Hamzah Mendoza MD [Physician] - (dysuria) Interventions: ED Discharge Assessment Last Done: 01/18/24 21:13 Discharge Date/Time: 01/18/24 21:28 Print Language: Peruvian
[2024-01-18 13:38] LABS: MANUAL DIFF FLAG NO
[2024-01-18 13:46] LABS: Basophils Absolute Auto 0.1 X10*3/uL (0.0-0.2); Basophils Percent Auto 1.6 % (0-2); Eosinophils Absolute Auto 0.2 X10*3/uL (0.0-0.4); Eosinophils Percent Auto 4.2 % (0-4); Hematocrit 48.9 % (37.0-47.0); Hemoglobin 14.7 g/dl (12.0-16.0); Imm Gran Abs Auto 0.02 X10*3/uL (0.00-0.03); Imm Gran Pct Auto 0.4 % (0.0-0.4); Lymphocytes Absolute Auto 0.6 X10*3/uL (1.2-4.9); Lymphocytes Percent Auto 11.5 % (20-40); Mean Corpuscular HGB Conc 30.1 g/dl (31.0-35.0); Mean Corpuscular Hemoglobin 23.7 pg (27.0-33.0); Mean Corpuscular Volume 78.7 fL (80.0-98.0); Mean Platelet Volume 9.2 fL (9.4-12.3); Monocytes Absolute Auto 0.7 X10*3/uL (0.1-1.2); Monocytes Percent Auto 12.9 % (2-11); Neutrophils Absolute Auto 3.8 x10*3/uL (2.0-8.3); Neutrophils Percent Auto 69.4 % (45-73); Platelet Count 306 X10*3/uL (160-400); Red Blood Count 6.21 X10*6/uL (4.20-5.50); Red Cell Distribution Width 17.1 % (11.0-16.0); White Blood Count 5.5 X10*3/uL (4.8-10.8)
[2024-01-18 13:56] LABS: Alanine Aminotransferase 36 U/L (0-31); Albumin Level 3.5 g/dL (3.5-5.0); Alkaline Phosphatase 125 U/L (39-117); Anion Gap 7 (12-20); Aspartate Amino Transferase 36 U/L (5-31); Bilirubin Total 0.4 mg/dL (0.0-1.0); Blood Urea Nitrogen 10 mg/dL (9-16); Calcium 8.8 mg/dL (8.4-10.2); Carbon Dioxide 39 mmol/L (22-29); Chloride 95 mmol/L (96-108); Creatinine Clr Calc Pharmacy 53.5; Estimated Glomerular Filt Rate > 60; Glucose Random 106 mg/dL (60-115); Magnesium 1.9 mg/dL (1.6-2.6); Potassium 4.2 mmol/L (3.3-5.1); Sodium 137 mmol/L (135-145); Total Protein 6.8 g/dL (6.5-8.0)
[2024-01-18 14:16] LABS: Influenza A PCR NEGATIVE (Negative); Influenza B PCR NEGATIVE (Negative); Resp Syncy Virus RNA Qual PCR NEGATIVE (Negative); SARS COV2 PCR INHOUSE NEGATIVE (Negative)
[2024-01-18 15:03] LABS: Appearance Urine Clear; Color Urine Dark Yellow; Glucose Urine UA Negative (Negative); Leukocyte Esterase Urine Trace (Negative); Nitrite Urine Negative (Negative); Specific Gravity - Urine 1.025 (1.005-1.025); UMIC TRIGGER UACC YES; Urine Blood Negative (Negative); Urine Ketones Negative (Negative); Urine Protein 30 (1+) mg/dL (Neg-Trace)
[2024-01-18 15:19] LABS: Bacteria Urine None Seen (None Seen); Hyaline Casts Urine 0-2 /LPF (0-2); RBC Urine 0-2 /HPF (0-2); WBC Urine 0-5 /HPF (0-5)
[2024-01-18 20:12] VITALS: BP 125/79; PULSE 95; RESP 19; TEMP 36.8; O2SAT 92
[2024-01-18 21:09] VITALS: BP 130/76; PULSE 97; RESP 15; TEMP 36.7; O2SAT 96
[2024-01-18 21:13] VITALS: BP 130/76; PULSE 97; RESP 15; TEMP 36.6; O2SAT 96
--- NOTE | 2024-01-18 21:14 | PC.NURSE ---
pt given d/c instructions awaiting ride with oxygen tank.
== END 2024-01-18 21:28 | disposition home or self-care (01) ==
PROVIDERS: Physician Assistant; Emergency Provider Emergency Medicine; PCP Internal Medicine
DX: R30.0 Dysuria (principal); J44.9 Chronic obstructive pulmonary disease, unspecified; Z85.528 Personal history of other malignant neoplasm of kidney; Z90.5 Acquired absence of kidney; Z03.818 Encounter for observation for suspected exposure to other biological agents ruled out
CPT/HCPCS: 0241U; 70450; 71045; 80053; 81001; 81003; 83735; 85025; 99283; 99284

== ENCOUNTER 2024-02-07 17:36 | Emergency (ER) | payer OTHER, SELFPAY ==
--- NOTE | ~2024-02-07 | XR_ITS ---
EXAMINATION: XR CHEST CLINICAL INFORMATION: Cough and weakness COMPARISON: 01/18/2024 TECHNIQUE: Frontal view of the chest was obtained. FINDINGS: Compared to the prior study there's been some improvement in the right perihilar postoperative density with continued presence of suture lines and atelectasis. No recurrent mass. Continued volume loss in the right hemithorax. The heart and left lung appear normal. XR/XR chest 1V IMPRESSION: No acute intrathoracic disease.
--- NOTE | ~2024-02-07 | CT_ITS ---
EXAMINATION: CT HEAD WITHOUT CONTRAST CLINICAL INFORMATION: Headaches. Multiple falls. COMPARISON: CT from 01/18/2024. TECHNIQUE: Contiguous axial imaging was performed from the skullbase to vertex without intravenous administration of contrast. This CT examination was performed using dose optimization techniques as appropriate, variously including the following: *Automated exposure control *Adjustment of mA and/or kV according to patient size (this includes techniques or standardized protocols for targeted exams where dose is matched to indication/reason for exam; i.e. extremities or head) *Use of iterative reconstruction technique DLP: 629 mGy-cm. FINDINGS: There is no evidence of acute intracranial hemorrhage or territorial infarction. No abnormal mass effect or midline shift is seen. No extra-axial fluid collections are identified. Patchy areas of low-density in the cerebral white matter are grossly similar to the previous exam and may be due to chronic microangiopathy. [id number] generalized brain parenchymal volume loss noted with commensurate ex vacuo prominence of the ventricles, as on prior imaging. The osseous structures and soft tissues are normal. The mastoid air cells and visualized portions of the paranasal sinuses are well aerated. CT/CT head/brain wo IV con IMPRESSION: No acute intracranial hemorrhage or territorial infarction. Chronic white matter microangiopathy and generalized brain parenchymal volume loss, as on previous imaging.
[2024-02-07 17:48] VITALS: BP 130/88; PULSE 90; O2SAT 96
--- NOTE | 2024-02-07 18:03 | ECG_ITS ---
Test Reason : WEAKNESS Blood Pressure : / mmHG Vent. Rate : 094 BPM Atrial Rate : 094 BPM P-R Int : 140 ms QRS Dur : 088 ms QT Int : 362 ms P-R-T Axes : 055 000 042 degrees QTc Int : 452 ms Normal sinus rhythm Nonspecific ST abnormality Abnormal ECG When compared with ECG of 11-NOV-2023 17:52, No significant change was found Referred By: Cheryle Edgar Electronically Signed By:Lincoln Griffiths
[2024-02-07 18:07] VITALS: BP 129/84; PULSE 93; RESP 18; TEMP 36.8; O2SAT 94; BMI 18.3
[2024-02-07 18:14] VITALS: BP 129/84; PULSE 94; RESP 18; TEMP 36.8; O2SAT 94
--- NOTE | 2024-02-07 18:16 | PC.NURSE ---
Pt presents to ED from home via EMS, EMS reports community follow up clerk on scene found pt to hypoxic around 80%, gave pt a duoneb and then placed on 2L O2 NC. Pt reports generalized weakness, lethargy and repeated falls for past week, with head hits, no LOC. Pt is alert and oriented, breathing even and unlabored, skin pale and dry. Pt noted to desat to 85% quickly on RA, improves quickly to 94% on 2L O2 NC, per MD order. No obvious trauma noted to face or head. Pt does have home O2 but does not use it.
--- NOTE | 2024-02-07 18:50 | ED_ITS ---
HPI - General Adult General Chief complaint: General Medical Stated complaint: lethargic Time Seen by Provider: 02/07/24 17:41 Source: patient and EMS Mode of arrival: EMS Limitations: no limitations History of Present Illness HPI narrative: Patient comes in the emergency room complaining of generalized weakness, multiple falls for about a week, positive head strike, not on blood thinners. Patient states that she is on p.o. chemotherapy treatment, denies fever or chills. According to EMS, patient was found in her home, awake, alert, oxygen saturation in the low 80s. Patient states that she does not like to use her oxygen although she is supposed to use it constantly 2 L. patient denies any headache or any musculoskeletal pain due to the falls. Related Data Home Medications ?Medication ?Instructions ?Recorded ?Confirmed atorvastatin 10 mg tablet 10 mg PO DAILY 09/28/23 11/12/23 famotidine 40 mg tablet 40 mg PO BEDTIME 09/28/23 11/12/23 hydrochlorothiazide 25 mg tablet 25 mg PO DAILY 09/28/23 11/12/23 nifedipine 30 mg tablet,extended 30 mg PO BEDTIME 09/28/23 11/12/23 release nystatin 100,000 unit/mL oral 10 ml buccal TID PRN thrush 09/28/23 11/12/23 suspension umeclidinium 62.5 mcg/actuation 1 inh inhalation DAILY 09/28/23 11/12/23 blister powder for inhalation (Incruse Ellipta) bupropion HCl 150 mg 24 hr tablet, 150 mg PO DAILY 10/06/23 11/12/23 extended release amitriptyline 75 mg tablet 75 mg PO BEDTIME 11/12/23 11/12/23 fluticasone propionate 220 1 puff inhalation BID 11/12/23 11/12/23 mcg/actuation HFA aerosol inhaler mometasone 0.1 % topical cream 1 appl topical BID PRN Rash 11/12/23 11/12/23 ondansetron 8 mg disintegrating 8 mg PO Q8H PRN Nausea And Vomiting 11/12/23 11/12/23 tablet Previous Rx's ?Medication ?Instructions ?Recorded betamethasone dipropionate 0.05 % 1 appl topical BID PRN skin 10/07/22 topical cream irritation #45 grams albuterol sulfate 90 mcg/actuation 2 puff inhalation QID PRN 12/28/22 aerosol inhaler shortness of breath or wheezing #8.5 grams gabapentin 400 mg capsule 400 mg PO TID 90 days #270 caps 06/28/23 cholecalciferol (vitamin D3) 50 50 mcg PO DAILY 90 days #90 caps 07/10/23 mcg (2,000 unit) capsule ipratropium 0.5 mg-albuterol 3 mg 3 ml inhalation Q6H PRN shortness 07/25/23 (2.5 mg base)/3 mL nebulization of breath or wheezing 30 days #180 soln mL oxycodone-acetaminophen 5 mg-325 1 tab PO Q8H PRN low back pain 7 10/11/23 mg tablet days #21 tabs lenvatinib 20 mg/day (10 mg x 2) 20 mg PO DAILY #60 caps 10/20/23 capsule benzonatate 100 mg capsule 100 mg PO TID PRN Cough #9 caps 11/13/23 sennosides 8.6 mg capsule (senna) 8.6 mg PO BID PRN constipation #60 12/05/23 caps levothyroxine 25 mcg tablet 25 mcg PO DAILY #30 tabs 12/19/23 (Synthroid) clonazepam 0.5 mg tablet 0.5 mg PO TID PRN anxiety 30 days 12/25/23 #90 tabs pantoprazole 40 mg tablet,delayed 40 mg PO DAILY #90 tabs 12/26/23 release nitrofurantoin 100 mg PO Q12H 7 days #14 caps 12/29/23 monohydrate/macrocrystals 100 mg capsule (Macrobid) Magic Mouthwash 10 ml PO QID #240 mL 01/08/24 Diphen/Lido/Antacid 1:1:1 240 mL suspension triamcinolone acetonide 0.1 % 1 appl dental BID #30 grams 01/09/24 dental paste lidocaine HCl 2 % mucosal solution 1 appl mucous membrane QID #300 mL 01/22/24 (Lidocaine Viscous) Allergies Allergy/AdvReac Type Severity Reaction Status Date / Time Sulfa (Sulfonamide Allergy Severe ANAPHYLAXIS Verified 02/07/24 18:09 Antibiotics) Penicillins Allergy Intermediate RASH Verified 01/18/24 13:05 aspirin [ASA] AdvReac Severe severe Verified 01/18/24 13:05 stomach pain NSAIDS (Non-Steroidal AdvReac Severe severe Verified 01/18/24 13:05 Anti-Inflamma stomach pain codeine [Codeine] AdvReac Intermediate NAUSEA & Verified 01/18/24 13:05 VOMITING Review of Systems 2 Review of Systems: Constitutional : No Weight loss, No Fever, No Chills, No Night Sweats, complaining of fatigue/weakness, generalized malaise, multiple falls ENT/Mouth : No Hearing loss, No Ear Pain, No Nasal Congestion, No Sinus Pain, No Hoarseness, No sore throat, No Rhinorrhea, No Swallowing Difficulty Eyes: No Eye Pain, No Swelling, No Redness, No Foreign Body, No Discharge, No Vision Changes Cardiovascular : No Chest Pain, No SOB, No Dyspnea on Exertion, No Orthopnea, No Edema, No Palpitations Respiratory : No Cough, No Sputum, No Wheezing, No Smoke Exposure, No Dyspnea Gastrointestinal : No Nausea, No Vomiting, No Diarrhea, No Constipation, No abdominal Pain, No Hematochezia, No Melena Genitourinary : no irregular bleeding, No Dysuria, No Urinary Frequency, No Hematuria, No Urinary Incontinence, No Urgency, No Flank Pain, No Urinary Flow Changes, No Hesitancy Musculoskeletal : No joint pain, No Myalgias, No Joint Swelling Skin : No Skin Lesions, No rash Neuro : No Weakness, No Numbness, No Paresthesias, No Loss of Consciousness, No Dizziness, No Headache Psych : No Anxiety/Panic, No Depression, No SI/HI/AH/VH, No Social Issues, Heme/Lymph: No Bruising, No Bleeding,No Lymphadenopathy Endocrine : No Polyuria, No Polydipsia, No Temperature Intolerance [facility] Past Medical History Medical History Liver lesion Right lower lobe lung mass Post-operative nausea and vomiting Dry eye COVID-19 COPD (chronic obstructive pulmonary disease) Malignant neoplasm of left kidney Vitamin D deficiency Depression Primary osteoarthritis of knees, bilateral Pure hypercholesterolemia Elevated C-reactive protein (CRP) Palpitations Constipation Obstructive sleep apnea Anxiety Benign essential hypertension Renal cell carcinoma of left kidney Oral thrush Lumbar degenerative disc disease Status post fall Right foot pain Chronic allergic bronchitis GERD (gastroesophageal reflux disease) Surgical History H/O kidney removal Hx of oral surgery Hx of tonsillectomy Pulmonary nodule 1 cm or greater in diameter History of nephrectomy Family History Family History Father Hypertension CVD (cardiovascular disease) Cancer Mother Hypertension Substance abuse Other Mental health problem Social History Social History Household Members: Spouse and Family Household Members Other:: and brother and sister Housing: House Are you a primary wound care coordinator to a significant other at home: No Do you presently have visiting nurse or other home services: No Alcohol intake: never Comment: COUNTS CORRECT Patient Tobacco Use Status: Former Tobacco user Quit Date: 2011 Tobacco use type: Cigarette Cigarette Packs Per Day: 1.5 Years Smoked: 30 Smoked in Last 30 Days: No e-Cigarette/Vaping Use: Currently Using Second Hand Smoke Exposure: No Use of substances other than those prescribed or required for medical reasons: No Advance Directives: Yes Advance Directives on File: Yes Advance Directives Date on File: 11/29/23 Do you have a plan to hurt others: No Plan service: No Current occupational status: disabled Cognitive needs: No Hearing needs: No Vision needs: No Physical Exam ED Vital Signs: Vital Signs - 24 hr 02/07/24 18:07 02/07/24 18:14 02/07/24 20:30 Temperature 98.2 F 98.2 F 98.0 F Pulse Rate 93 94 88 Respiratory Rate 18 18 17 Blood Pressure 129/84 129/84 133/84 Pulse Oximetry 94 94 92 Oxygen Delivery Method Nasal Cannula Nasal Cannula Nasal Cannula Oxygen Flow Rate 2 2 02/07/24 22:35 02/07/24 23:05 Temperature Pulse Rate 82 78 Respiratory Rate 14 14 Blood Pressure 149/91 H 153/87 H Pulse Oximetry 98 98 Oxygen Delivery Method Nasal Cannula Nasal Cannula Oxygen Flow Rate 2 2 BMI result Body Mass Index 18.3 Const Other: Appearance: Alert. Oriented X3. No acute distress. Eyes: Pupils equal, round and reactive to light. ENT: Pharynx normal. Neck: Normal inspection. Neck supple. No lymph nodes noted. No crepitus CVS: Normal heart rate and rhythm. Pulses normal. Normal S1 and S2 Respiratory: No respiratory distress. Breath sounds normal. No Wheezing. No rales , oxygen saturation 94-90% on 2 L nasal cannula which he is supposed to use Abdomen: Soft and nontender. No rigidity. No distention. Skin: Skin warm and dry. Normal skin color. Normal skin turgor. Extremities: No lower extremity edema. No Lacerations. No Rash Neuro: Oriented X 3. No motor deficit. No sensory deficit. Moving all extremities. No slurred speech. CN 2 through 12 grossly intact Psych: calm, cooperative, normal affect Medications Administered Discontinued Medications Generic Name Dose Route Start Last Admin Trade Name Laurel PRN Reason Stop Dose Admin Sodium Chloride 1,000 mls @ 999 mls/hr 02/07/24 18:02 02/07/24 22:30 Ns IVCONT 02/07/24 19:02 Infused .Q1H1M ONE Infusion Medical Decision Making Medical Decision Making [facility] Narrative: -my interpretation of labs: Hematology at baseline, PT INR, chemistry within normal limits. Patient's troponin is a bit bumped, 210, 213. Previously in November of this year it was negative. Patient has had multiple falls, however CPK within normal limits. Patient has no chest pain at all. No EKG changes. My interpretation of EKG: Normal sinus rhythm, heart rate 94, no ST segment depression or elevation, no T-wave inversion, QTC 452 -here in the emergency room, patient had difficult time urinating. Patient could not pass any urine despite having a bladder with more than 500 cc of urine. Patient was given a Pena catheter. Urine was sent, negative for UTI. -I discussed the patient with Dr. Martinez from the Medicine team, patient's troponin is elevated but flat, no EKG changes, per Dr. Martinez no need for admission at this time -I offered to the patient physical therapy/case management for short-term rehab versus home physical therapy. Patient declined. -I discussed with the patient that she needs to return in 48 hours to have the Pena catheter removed in to check if the patient can urinate by herself. Patient agrees with plan. -given the patient's new elevation of troponin, I offered the patient a 3rd troponin. Patient agreeable with plan. If troponin 3. Slept, patient may be discharged home. -sign-out was given to my colleague Differential Diagnosis Differential Diagnoses: The differential diagnosis associated with the presentation includes (Decompensation, UTI, urinary retention, NSTEMI) Admission/Observation Consideration of admission/observation: Escalation of care including admission/observation considered Consult Healthcare Provider Management of the patient was discussed with: Hospitalist Lab Data MDM Lab Attestation statement: I reviewed the patient's lab results. 02/07/24 18:44 02/07/24 19:20 Labs: Lab Results 02/07/24 02/07/24 02/07/24 Range/Units 18:44 18:48 19:20 WBC 6.8 (4.8-10.8) X10*3/uL RBC 5.96 H (4.20-5.50) X10*6/uL Hgb 14.1 (12.0-16.0) g/dl Hct 46.0 (37.0-47.0) % MCV 77.2 L (80.0-98.0) fL MCH 23.7 L (27.0-33.0) pg MCHC 30.7 L (31.0-35.0) g/dl RDW 16.4 H (11.0-16.0) % Plt Count 259 (160-400) X10*3/uL MPV 9.8 (9.4-12.3) fL Immature Gran % (Auto) 0.3 (0.0-0.4) % Neut % (Auto) 79.0 H (45-73) % Lymph % (Auto) 9.9 L (20-40) % [place] % (Auto) 8.0 (2-11) % Eos % (Auto) 1.8 (0-4) % Baso % (Auto) 1.0 (0-2) % Lymph # (Auto) 0.7 L (1.2-4.9) X10*3/uL [place] # (Auto) 0.5 (0.1-1.2) X10*3/uL Eos # (Auto) 0.1 (0.0-0.4) X10*3/uL Baso # (Auto) 0.1 (0.0-0.2) X10*3/uL Abs Immat Gran (auto) 0.02 (0.00-0.03) X10*3/uL Absolute Neuts (auto) 5.4 (2.0-8.3) x10*3/uL Absolute Nucleated RBC 0.000 (0.0-0.012) X10*3/uL Nucleated RBC % (auto) 0.0 (0.0-0.2) /100WBC PT 13.2 (11.1-13.3) SEC INR 1.1 (0.9-1.1) Sodium 136 (135-145) mmol/L Potassium 4.4 (3.3-5.1) mmol/L Chloride 96 (96-108) mmol/L Carbon Dioxide 28 (22-29) mmol/L Anion Gap 16 (12-20) BUN 11 (9-16) mg/dL Creatinine 0.79 (0.5-1.4) mg/dL Estim Creat Clear Calc 49.4 Estimated GFR > 60 Random Glucose 83 (60-115) mg/dL Lactic Acid 1.6 (0.5-2.0) mmol/L Calcium 9.0 (8.4-10.2) mg/dL Magnesium 1.8 (1.6-2.6) mg/dL Total Bilirubin 0.5 (0.0-1.0) mg/dL Direct Bilirubin 0.2 (0.0-0.5) mg/dL AST 32 H (5-31) U/L ALT 26 (0-31) U/L Alkaline Phosphatase 108 (39-117) U/L Total Creatine Kinase 32 (26-140) U/L Troponin I High Sens 210.8 H* D (<3.5-17.0) ng/L Total Protein 6.5 (6.5-8.0) g/dL Albumin 3.3 L (3.5-5.0) g/dL Lipase 17 (8-78) U/L Urine Color Urine Appearance Urine pH (5.0-9.0) Ur Specific [place] (1.005-1.025) Urine Protein (Neg-Trace) mg/dL Urine Glucose (UA) (Negative) mg/dL Urine Ketones (Negative) mg/dL Urine Blood (Negative) Urine Nitrite (Negative) Ur Leukocyte Esterase (Negative) Urine RBC (0-2) /HPF Urine WBC (0-5) /HPF Ur Squamous Epith Cells (0-2) /HPF Urine Bacteria (None Seen) Hyaline Casts (0-2) /LPF Ethyl Alcohol < 10 mg/dL COVID-19 (DENISE) Negative (Negative) COVID-19 Clin Com See Note Influenza Type A (MADALYN) Negative (Negative) Influenza Type B (MADALYN) Negative (Negative) Influenza A & B Note See Note 02/07/24 02/08/24 Range/Units 21:59 01:41 WBC (4.8-10.8) X10*3/uL RBC (4.20-5.50) X10*6/uL Hgb (12.0-16.0) g/dl Hct (37.0-47.0) % MCV (80.0-98.0) fL MCH (27.0-33.0) pg MCHC (31.0-35.0) g/dl RDW (11.0-16.0) % Plt Count (160-400) X10*3/uL MPV (9.4-12.3) fL Immature Gran % (Auto) (0.0-0.4) % Neut % (Auto) (45-73) % Lymph % (Auto) (20-40) % [place] % (Auto) (2-11) % Eos % (Auto) (0-4) % Baso % (Auto) (0-2) % Lymph # (Auto) (1.2-4.9) X10*3/uL [place] # (Auto) (0.1-1.2) X10*3/uL Eos # (Auto) (0.0-0.4) X10*3/uL Baso # (Auto) (0.0-0.2) X10*3/uL Abs Immat Gran (auto) (0.00-0.03) X10*3/uL Absolute Neuts (auto) (2.0-8.3) x10*3/uL Absolute Nucleated RBC (0.0-0.012) X10*3/uL Nucleated RBC % (auto) (0.0-0.2) /100WBC PT (11.1-13.3) SEC INR (0.9-1.1) Sodium (135-145) mmol/L Potassium (3.3-5.1) mmol/L Chloride (96-108) mmol/L Carbon Dioxide (22-29) mmol/L Anion Gap (12-20) BUN (9-16) mg/dL Creatinine (0.5-1.4) mg/dL Estim Creat Clear Calc Estimated GFR Random Glucose (60-115) mg/dL Lactic Acid (0.5-2.0) mmol/L Calcium (8.4-10.2) mg/dL Magnesium (1.6-2.6) mg/dL Total Bilirubin (0.0-1.0) mg/dL Direct Bilirubin (0.0-0.5) mg/dL AST (5-31) U/L ALT (0-31) U/L Alkaline Phosphatase (39-117) U/L Total Creatine Kinase (26-140) U/L Troponin I High Sens 213.3 H* (<3.5-17.0) ng/L Total Protein (6.5-8.0) g/dL Albumin (3.5-5.0) g/dL Lipase (8-78) U/L Urine Color Yellow Urine Appearance Clear Urine pH 6.5 (5.0-9.0) Ur Specific [place] 1.015 (1.005-1.025) Urine Protein 30 (1+) H (Neg-Trace) mg/dL Urine Glucose (UA) Negative (Negative) mg/dL Urine Ketones Negative (Negative) mg/dL Urine Blood Negative (Negative) Urine Nitrite Negative (Negative) Ur Leukocyte Esterase Trace H (Negative) Urine RBC 0-2 (0-2) /HPF Urine WBC 0-5 (0-5) /HPF Ur Squamous Epith Cells 0-2 (0-2) /HPF Urine Bacteria None Seen (None Seen) Hyaline Casts 0-2 (0-2) /LPF Ethyl Alcohol mg/dL COVID-19 (DENISE) (Negative) COVID-19 Clin Com Influenza Type A (MADALYN) (Negative) Influenza Type B (MADALYN) (Negative) Influenza A & B Note Independent Interpretation I performed an independent interpretation of an: Plain X-Ray (My interpretation of chest x-ray: No infiltrate) and CT Scan (My interpretation of CT scan of the head: No intracranial bleed) Radiology Impression Discussion of test interpretation with radiology: I have reviewed the radiologist's reading. Radiologist Impression: Compared to the prior study there's been some improvement in the right perihilar postoperative density with continued presence of suture lines and atelectasis. No recurrent mass. Continued volume loss in the right hemithorax. The heart and left lung appear normal. XR/XR chest 1V IMPRESSION: No acute intrathoracic disease. Independent Historian Clinical information obtained from an independent historian. History obtained from or confirmed by: EMS Critical Care Time Critical Care Time Critical Care Time: Yes Total Critical Care Time: 60 Attestation: I have personally provided critical care time. Time includes review of lab data, radiology results, discussion with consultants, and monitoring for potential decompensation. Intervention performed as documented. Discharge Plan Discharge Clinical Impression: Weakness, Multiple falls, Acute urinary retention, Elevated troponin Patient Disposition: Still a Patient Instructions: Acute Urinary Retention in Women (ED), Weakness (ED), Musculoskeletal Pain (ED) Additional Instructions: Your Pena catheter needs to be removed in 24-48 hours. Please return to the emergency room for Pena catheter removal and urination trial. Please follow-up with your primary care physician tomorrow. If you have any worsening or new symptoms, please return to the emergency room or call 911 Prescriptions: No Action betamethasone dipropionate 0.05 % cream 1 appl topical BID PRN (Reason: skin irritation) Qty: 45 0RF gabapentin 400 mg capsule 400 mg PO TID 90 Days Qty: 270 1RF cholecalciferol (vitamin D3) 50 mcg (2,000 unit) capsule 50 mcg PO DAILY 90 Days Qty: 90 3RF oxycodone-acetaminophen 5-325 mg tablet 1 tab PO Q8H PRN (Reason: low back pain) 7 Days Qty: 21 0RF senna 8.6 mg capsule 8.6 mg PO BID PRN (Reason: constipation) Qty: 60 5RF clonazepam 0.5 mg tablet 0.5 mg PO TID PRN (Reason: anxiety) 30 Days Qty: 90 0RF pantoprazole 40 mg tablet,delayed release (DR/EC) 40 mg PO DAILY Qty: 90 1RF nystatin 100,000 unit/mL suspension 10 ml buccal TID PRN (Reason: thrush) Rx Instructions: swish 1/2 of dose in each side of the mouth for up to 5 minutes, then spit out the medicine atorvastatin 10 mg tablet 10 mg PO DAILY famotidine 40 mg tablet 40 mg PO BEDTIME nifedipine 30 mg tablet extended release 30 mg PO BEDTIME hydrochlorothiazide 25 mg tablet 25 mg PO DAILY Incruse Ellipta 62.5 mcg/actuation blister with device 1 inh inhalation DAILY bupropion HCl 150 mg tablet extended release 24 hr 150 mg PO DAILY lenvatinib 20 mg/day (10 mg x 2) Capsule 20 mg PO DAILY Qty: 60 4RF levothyroxine [Synthroid] 25 mcg Tablet 25 mcg PO DAILY Qty: 30 3RF Magic Mouthwash Diphen/Lido/Antacid 1:1:1 240 mL Suspension 10 ml PO QID Qty: 240 4RF Rx Instructions: Lidocaine Viscous 2 % 80mL; diphenhydramine 12.5 mg/5 mL 80mL; aluminum-mag hydrox-simeth [id number]-99vy/5mL 80mL triamcinolone acetonide 0.1 % Paste 1 appl DENTAL BID Qty: 30 2RF Rx Instructions: use after food and/or drink and/or oral hygiene lidocaine HCl [Lidocaine Viscous] 2 % Solution 1 appl MUCOUS MEMBRANE QID Qty: 300 3RF ondansetron 8 mg tablet,disintegrating 8 mg PO Q8H PRN (Reason: Nausea And Vomiting) fluticasone propionate 220 mcg/actuation HFA aerosol inhaler 1 puff INHALATION BID amitriptyline 75 mg tablet 75 mg PO BEDTIME mometasone 0.1 % cream 1 appl topical BID PRN (Reason: Rash) benzonatate 100 mg Capsule 100 mg PO TID PRN (Reason: Cough) Qty: 9 0RF nitrofurantoin monohyd/m-cryst [Macrobid] 100 mg capsule 100 mg PO Q12H 7 Days Qty: 14 0RF Rx Instructions: must administer with a meal/food albuterol sulfate 90 mcg/actuation HFA aerosol inhaler 2 puff inhalation QID PRN (Reason: shortness of breath or wheezing) Qty: 8.5 6RF ipratropium-albuterol 0.5 mg-3 mg(2.5 mg base)/3 mL solution for nebulization 3 ml inhalation Q6H PRN (Reason: shortness of breath or wheezing) 30 Days Qty: 180 6RF Referrals: Dominic Lin MD [Primary Care Provider] - Lincoln Griffiths MD [Physician] - Print Language: Rw[place]an
[2024-02-07 18:51] LABS: MANUAL DIFF FLAG NO
[2024-02-07 18:54] LABS: Basophils Absolute Auto 0.1 X10*3/uL (0.0-0.2); Eosinophils Absolute Auto 0.1 X10*3/uL (0.0-0.4); Eosinophils Percent Auto 1.8 % (0-4); Hemoglobin 14.1 g/dl (12.0-16.0); Imm Gran Abs Auto 0.02 X10*3/uL (0.00-0.03); Imm Gran Pct Auto 0.3 % (0.0-0.4); Lymphocytes Absolute Auto 0.7 X10*3/uL (1.2-4.9); Lymphocytes Percent Auto 9.9 % (20-40); Mean Corpuscular HGB Conc 30.7 g/dl (31.0-35.0); Mean Corpuscular Hemoglobin 23.7 pg (27.0-33.0); Mean Corpuscular Volume 77.2 fL (80.0-98.0); Mean Platelet Volume 9.8 fL (9.4-12.3); Monocytes Absolute Auto 0.5 X10*3/uL (0.1-1.2); Neutrophils Absolute Auto 5.4 x10*3/uL (2.0-8.3); Platelet Count 259 X10*3/uL (160-400); Red Blood Count 5.96 X10*6/uL (4.20-5.50); Red Cell Distribution Width 16.4 % (11.0-16.0); White Blood Count 6.8 X10*3/uL (4.8-10.8)
[2024-02-07 19:01] LABS: INTERNATIONAL NORM RATIO 1.1 (0.9-1.1); Prothrombin Time 13.2 SEC (11.1-13.3)
[2024-02-07 19:07] LABS: Lactic Acid 1.6 mmol/L (0.5-2.0)
--- NOTE | 2024-02-07 19:35 | PC.NURSE ---
This play writer assumed care of this Pt at 1900. Pt A&Ox3, reports dry nostrils from O2 use. Pt taken to CT scan. 2nd set of blood cultures drawn and sent to lab.
[2024-02-07 19:42] LABS: COVID-19 Test Negative (Negative); IDNOW Serial# 152EDE1D
[2024-02-07 19:58] LABS: Alanine Aminotransferase 26 U/L (0-31); Albumin Level 3.3 g/dL (3.5-5.0); Alkaline Phosphatase 108 U/L (39-117); Anion Gap 16 (12-20); Aspartate Amino Transferase 32 U/L (5-31); Bilirubin Direct 0.2 mg/dL (0.0-0.5); Bilirubin Total 0.5 mg/dL (0.0-1.0); Blood Urea Nitrogen 11 mg/dL (9-16); Carbon Dioxide 28 mmol/L (22-29); Chloride 96 mmol/L (96-108); Creatinine Clr Calc Pharmacy 49.4; Estimated Glomerular Filt Rate > 60; Ethanol < 10 mg/dL; Glucose Random 83 mg/dL (60-115); Lipase 17 U/L (8-78); Magnesium 1.8 mg/dL (1.6-2.6); Potassium 4.4 mmol/L (3.3-5.1); Sodium 136 mmol/L (135-145); Total Protein 6.5 g/dL (6.5-8.0)
[2024-02-07 20:01] LABS: Troponin-I High Sensitivity 210.8 ng/L (<3.5-17.0)
[2024-02-07 20:14] LABS: IDNOW Serial# 9DB6401D
[2024-02-07 20:15] LABS: Influenza A Negative (Negative); Influenza B2 Negative (Negative)
[2024-02-07] MEDS: 0.9 % Sodium Chloride 1,000 ML 999 ML IVCONT (20:19)
--- NOTE | 2024-02-07 20:20 | PC.NURSE ---
ivf started per order float RN
[2024-02-07 20:30] VITALS: BP 133/84; PULSE 88; RESP 17; TEMP 36.7; O2SAT 92
[2024-02-07 22:35] VITALS: BP 149/91; PULSE 82; RESP 14; O2SAT 98
[2024-02-07 22:37] LABS: Troponin-I High Sensitivity 213.3 ng/L (<3.5-17.0)
[2024-02-07 23:05] VITALS: BP 153/87; PULSE 78; RESP 14; O2SAT 98
--- NOTE | 2024-02-08 00:28 | PC.NURSE ---
Pt sat at edge of bed, reports feeling dizzy. Ambulated to BR with staff stand by. Pt was not able to provide urine sample at this time.
--- NOTE | 2024-02-08 01:48 | PC.NURSE ---
Bladder scan results 529 mL. Pt ambulated to bedside commode, no urine output, Pt states urge but unable to go, this never has happened . Dr. Edgar made aware, verbal order for f/c placement. 16F F/C placed, 600 mL of clear yellow fluid drained, Pt tolerated well. Urine sample collected and sent to lab.
[2024-02-08 01:51] LABS: Appearance Urine Clear; Color Urine Yellow; Glucose Urine UA Negative (Negative); Leukocyte Esterase Urine Trace (Negative); Nitrite Urine Negative (Negative); PH 6.5 (5.0-9.0); Specific Gravity - Urine 1.015 (1.005-1.025); UMIC TRIGGER UACC YES; Urine Blood Negative (Negative); Urine Ketones Negative (Negative); Urine Protein 30 (1+) mg/dL (Neg-Trace)
[2024-02-08 02:01] LABS: Bacteria Urine None Seen (None Seen); Hyaline Casts Urine 0-2 /LPF (0-2); RBC Urine 0-2 /HPF (0-2); Squamous Epithelial Cell Urine 0-2 /HPF (0-2); WBC Urine 0-5 /HPF (0-5)
[2024-02-08 02:58] VITALS: BP 145/88; PULSE 80; RESP 17; TEMP 36.8; O2SAT 97
[2024-02-08 03:01] LABS: Amphetamine Screen Urine Not Detected (Not Detect); Barbiturates, Urine Not Detected (Not Detect); Benzodiazepines Screen Urine Not Detected (Not Detect); Buprenorphine Scr Not Detected (Not Detect); Cannabinoid Screen Urine Not Detected (Not Detect); Cocaine Screen Urine Not Detected (Not Detect); Fentanyl, urine Not Detected (Not Detect); Methadone Screen, Urine Not Detected (Not Detect); Opiate Screen Urine Not Detected (Not Detect); Oxycodone Screen Urine Positive (Not Detect); Phencyclidine Screen Urine Not Detected (Not Detect)
[2024-02-08 03:21] LABS: Troponin-I High Sensitivity 162.9 ng/L (<3.5-17.0)
[2024-02-08 04:28] VITALS: BP 137/82; PULSE 82; RESP 14; TEMP 36.8; O2SAT 96
[2024-02-08 04:40] VITALS: BP 137/82; PULSE 82; RESP 14; TEMP 36.8; O2SAT 96
== END 2024-02-08 04:52 | disposition home or self-care (01) ==
PROVIDERS: Emergency Medicine; Emergency Provider Student in an Organized Health Care Education/Training Program; PCP Internal Medicine
DX: R53.1 Weakness (principal); R11.2 Nausea with vomiting, unspecified; R33.9 Retention of urine, unspecified; R05.9 Cough, unspecified; R51.9 Headache, unspecified; R94.31 Abnormal electrocardiogram [ECG] [EKG]; R79.89 Other specified abnormal findings of blood chemistry; Z11.52 Encounter for screening for COVID-19; Z79.899 Other long term (current) drug therapy; Z87.891 Personal history of nicotine dependence; Z91.81 History of falling
CPT/HCPCS: 36415; 70450; 71045; 80048; 80076; 80307; 81001; 81003; 82550; 83605; 83690; 83735; 84484; 85025; 85610; 87040; 87502; 87635; 93005; 96360; 96361; 99285

== ENCOUNTER → 2024-02-07 18:03 | Outpatient (BNV) | payer OTHER, SELFPAY | PROVIDERS: Emergency Provider Student in an Organized Health Care Education/Training Program; PCP Internal Medicine; Visit Provider Internal Medicine Cardiovascular Disease | DX: R94.31 Abnormal electrocardiogram [ECG] [EKG] (principal) | CPT/HCPCS: 93010 ==

== ENCOUNTER 2024-02-08 23:25 | Emergency (ER) | payer OTHER, SELFPAY ==
[2024-02-08 23:32] VITALS: BP 122/91; PULSE 104; RESP 18; TEMP 36.9; O2SAT 93; BMI 19.0
--- NOTE | 2024-02-09 00:44 | ED_ITS ---
HPI - Female Genitourinary General Chief complaint: Urogenital-Female Stated complaint: catheter needs to be removed Time Seen by Provider: 02/09/24 00:39 Source: patient and old records reviewed Mode of arrival: ambulatory Limitations: no limitations History of Present Illness HPI Narrative: 68 yo female with PMH of COPD, dizziness, UTI, lumbar back pain, HLD, depression, GERD, nephrectomy here yesterday with urinary retention and caballero placed comes back as she doesn't like it has discomfort and wants it taken out for trial. No blood, pain or fevers. MD elicited complaint: other (caballero cath removal) Onset (ago): day(s) (1) Location of symptoms: suprapubic Severity: mild Consistency: intermittent Exacerbating factors: none Relieving factors: none Associated symptoms: denies other symptoms Treatment prior to arrival: none Related Data Home Medications ?Medication ?Instructions ?Recorded ?Confirmed atorvastatin 10 mg tablet 10 mg PO DAILY 09/28/23 11/12/23 famotidine 40 mg tablet 40 mg PO BEDTIME 09/28/23 11/12/23 hydrochlorothiazide 25 mg tablet 25 mg PO DAILY 09/28/23 11/12/23 nystatin 100,000 unit/mL oral 10 ml buccal TID PRN thrush 09/28/23 11/12/23 suspension umeclidinium 62.5 mcg/actuation 1 inh inhalation DAILY 09/28/23 11/12/23 blister powder for inhalation (Incruse Ellipta) bupropion HCl 150 mg 24 hr tablet, 150 mg PO DAILY 10/06/23 11/12/23 extended release amitriptyline 75 mg tablet 75 mg PO BEDTIME 11/12/23 11/12/23 fluticasone propionate 220 1 puff inhalation BID 11/12/23 11/12/23 mcg/actuation HFA aerosol inhaler mometasone 0.1 % topical cream 1 appl topical BID PRN Rash 11/12/23 11/12/23 ondansetron 8 mg disintegrating 8 mg PO Q8H PRN Nausea And Vomiting 11/12/23 11/12/23 tablet Previous Rx's ?Medication ?Instructions ?Recorded betamethasone dipropionate 0.05 % 1 appl topical BID PRN skin 10/07/22 topical cream irritation #45 grams albuterol sulfate 90 mcg/actuation 2 puff inhalation QID PRN 12/28/22 aerosol inhaler shortness of breath or wheezing #8.5 grams gabapentin 400 mg capsule 400 mg PO TID 90 days #270 caps 06/28/23 cholecalciferol (vitamin D3) 50 50 mcg PO DAILY 90 days #90 caps 07/10/23 mcg (2,000 unit) capsule ipratropium 0.5 mg-albuterol 3 mg 3 ml inhalation Q6H PRN shortness 07/25/23 (2.5 mg base)/3 mL nebulization of breath or wheezing 30 days #180 soln mL oxycodone-acetaminophen 5 mg-325 1 tab PO Q8H PRN low back pain 7 10/11/23 mg tablet days #21 tabs lenvatinib 20 mg/day (10 mg x 2) 20 mg PO DAILY #60 caps 10/20/23 capsule benzonatate 100 mg capsule 100 mg PO TID PRN Cough #9 caps 11/13/23 sennosides 8.6 mg capsule (senna) 8.6 mg PO BID PRN constipation #60 12/05/23 caps levothyroxine 25 mcg tablet 25 mcg PO DAILY #30 tabs 12/19/23 (Synthroid) clonazepam 0.5 mg tablet 0.5 mg PO TID PRN anxiety 30 days 12/25/23 #90 tabs pantoprazole 40 mg tablet,delayed 40 mg PO DAILY #90 tabs 12/26/23 release nitrofurantoin 100 mg PO Q12H 7 days #14 caps 12/29/23 monohydrate/macrocrystals 100 mg capsule (Macrobid) Magic Mouthwash 10 ml PO QID #240 mL 01/08/24 Diphen/Lido/Antacid 1:1:1 240 mL suspension triamcinolone acetonide 0.1 % 1 appl dental BID #30 grams 01/09/24 dental paste lidocaine HCl 2 % mucosal solution 1 appl mucous membrane QID #300 mL 01/22/24 (Lidocaine Viscous) nifedipine 30 mg tablet,extended 30 mg PO DAILY #90 tabs 02/08/24 release Allergies Allergy/AdvReac Type Severity Reaction Status Date / Time Sulfa (Sulfonamide Allergy Severe ANAPHYLAXIS Verified 02/08/24 23:40 Antibiotics) Penicillins Allergy Intermediate RASH Verified 02/08/24 23:40 aspirin [ASA] AdvReac Severe severe Verified 02/08/24 23:40 stomach pain NSAIDS (Non-Steroidal AdvReac Severe severe Verified 02/08/24 23:40 Anti-Inflamma stomach pain codeine [Codeine] AdvReac Intermediate NAUSEA & Verified 02/08/24 23:40 VOMITING Review of Systems Review of Systems: Constitutional : No Fever, No Chills, No Fatigue Cardiovascular : No Chest Pain, No SOB, No Dyspnea on Exertion Respiratory : No Cough, No Sputum Gastrointestinal : No Nausea, No Vomiting, No Diarrhea, No abdominal Pain Genitourinary : No Dysuria, No Urinary Frequency, No Hematuria, Musculoskeletal : No joint pain, No Myalgias, No Joint Swelling Skin : No Skin Lesions, No rash Neuro : No Weakness, No Numbness, No Dizziness, no Headache All other systems reviewed and are negative [facility] Past Medical History Attestation statement: The following information was validated with the patient. Source: old records reviewed Medical History Liver lesion Right lower lobe lung mass Post-operative nausea and vomiting Dry eye COVID-19 COPD (chronic obstructive pulmonary disease) Malignant neoplasm of left kidney Vitamin D deficiency Depression Primary osteoarthritis of knees, bilateral Pure hypercholesterolemia Elevated C-reactive protein (CRP) Palpitations Constipation Obstructive sleep apnea Anxiety Benign essential hypertension Renal cell carcinoma of left kidney Oral thrush Lumbar degenerative disc disease Status post fall Right foot pain Chronic allergic bronchitis GERD (gastroesophageal reflux disease) Surgical History Metastatic renal cell carcinoma to lung H/O kidney removal Hx of oral surgery Hx of tonsillectomy Pulmonary nodule 1 cm or greater in diameter History of nephrectomy Family History Family History Father Hypertension CVD (cardiovascular disease) Cancer Mother Hypertension Substance abuse Other Mental health problem Social History Social History Household Members: Spouse and Family Household Members Other:: and brother and sister Housing: House Are you a primary transitional care liaison to a significant other at home: No Do you presently have visiting nurse or other home services: No Alcohol intake: never Comment: COUNTS CORRECT Patient Tobacco Use Status: Former Tobacco user Quit Date: 2011 Tobacco use type: Cigarette Cigarette Packs Per Day: 1.5 Years Smoked: 30 e-Cigarette/Vaping Use: Currently Using Second Hand Smoke Exposure: No Advance Directives: Yes Advance Directives on File: Yes Advance Directives Date on File: 11/29/23 service: No Current occupational status: disabled Cognitive needs: No Hearing needs: No Vision needs: No Physical Exam Vital Signs: Vital Signs: Last Vital Signs Temp 98.4 F 02/08/24 23:32 Pulse 104 H 02/08/24 23:32 Resp 18 02/08/24 23:32 BP 122/91 H 02/08/24 23:32 Pulse Ox 93 02/08/24 23:32 O2 Del Method Room Air 02/08/24 23:32 BMI result Body Mass Index 19.0 Appearance: Alert. Oriented X3. No acute distress. Eyes: Pupils equal, round and reactive to light. ENT: Pharynx normal. Neck: Normal inspection. Neck supple. CVS: Normal heart rate and rhythm. Pulses normal. Respiratory: No respiratory distress. Breath sounds normal. Abdomen: Soft and nontender. caballero cath clear yellow urine Skin: Skin warm and dry. Normal skin color. Extremities: No lower extremity edema. Neuro: Oriented X 3. No motor deficit. No sensory deficit. Medical Decision Making Medical Decision Making [facility] Narrative: 68 yo female with PMH of COPD, dizziness, UTI, lumbar back pain, HLD, depression, GERD, nephrectomy here yesterday asking for us to remove the catheter she is aware she trials x 6 hours at home and is to return if she does not void. She has no complaints, no blood in the caballero. She is going to set an alarm to wake up. Differential Diagnosis Differential Diagnoses: The differential diagnosis associated with the presentation includes caballero cath removal Lab Data [facility] Lab Attestation statement: I reviewed the patient's lab results. External Record Review External record reviewed: Inpatient record Discharge Plan Discharge Clinical Impression: Encounter for Caballero catheter removal Patient Disposition: Home, Self-Care Instructions: Caballero Catheter Removal (DC) Additional Instructions: return for pain, fevers, vomiting, no urination by 7am set an alarm. Prescriptions: No Action betamethasone dipropionate 0.05 % cream 1 appl topical BID PRN (Reason: skin irritation) Qty: 45 0RF gabapentin 400 mg capsule 400 mg PO TID 90 Days Qty: 270 1RF cholecalciferol (vitamin D3) 50 mcg (2,000 unit) capsule 50 mcg PO DAILY 90 Days Qty: 90 3RF oxycodone-acetaminophen 5-325 mg tablet 1 tab PO Q8H PRN (Reason: low back pain) 7 Days Qty: 21 0RF senna 8.6 mg capsule 8.6 mg PO BID PRN (Reason: constipation) Qty: 60 5RF clonazepam 0.5 mg tablet 0.5 mg PO TID PRN (Reason: anxiety) 30 Days Qty: 90 0RF pantoprazole 40 mg tablet,delayed release (DR/EC) 40 mg PO DAILY Qty: 90 1RF nifedipine 30 mg tablet extended release 30 mg PO DAILY Qty: 90 3RF nystatin 100,000 unit/mL suspension 10 ml buccal TID PRN (Reason: thrush) Rx Instructions: swish 1/2 of dose in each side of the mouth for up to 5 minutes, then spit out the medicine atorvastatin 10 mg tablet 10 mg PO DAILY famotidine 40 mg tablet 40 mg PO BEDTIME hydrochlorothiazide 25 mg tablet 25 mg PO DAILY Incruse Ellipta 62.5 mcg/actuation blister with device 1 inh inhalation DAILY bupropion HCl 150 mg tablet extended release 24 hr 150 mg PO DAILY lenvatinib 20 mg/day (10 mg x 2) Capsule 20 mg PO DAILY Qty: 60 4RF levothyroxine [Synthroid] 25 mcg Tablet 25 mcg PO DAILY Qty: 30 3RF Magic Mouthwash Diphen/Lido/Antacid 1:1:1 240 mL Suspension 10 ml PO QID Qty: 240 4RF Rx Instructions: Lidocaine Viscous 2 % 80mL; diphenhydramine 12.5 mg/5 mL 80mL; aluminum-mag hydrox-simeth [id number]/5mL 80mL triamcinolone acetonide 0.1 % Paste 1 appl DENTAL BID Qty: 30 2RF Rx Instructions: use after food and/or drink and/or oral hygiene lidocaine HCl [Lidocaine Viscous] 2 % Solution 1 appl MUCOUS MEMBRANE QID Qty: 300 3RF ondansetron 8 mg tablet,disintegrating 8 mg PO Q8H PRN (Reason: Nausea And Vomiting) fluticasone propionate 220 mcg/actuation HFA aerosol inhaler 1 puff INHALATION BID amitriptyline 75 mg tablet 75 mg PO BEDTIME mometasone 0.1 % cream 1 appl topical BID PRN (Reason: Rash) benzonatate 100 mg Capsule 100 mg PO TID PRN (Reason: Cough) Qty: 9 0RF nitrofurantoin monohyd/m-cryst [Macrobid] 100 mg capsule 100 mg PO Q12H 7 Days Qty: 14 0RF Rx Instructions: must administer with a meal/food albuterol sulfate 90 mcg/actuation HFA aerosol inhaler 2 puff inhalation QID PRN (Reason: shortness of breath or wheezing) Qty: 8.5 6RF ipratropium-albuterol 0.5 mg-3 mg(2.5 mg base)/3 mL solution for nebulization 3 ml inhalation Q6H PRN (Reason: shortness of breath or wheezing) 30 Days Qty: 180 6RF Print Language: Australian
[2024-02-09 01:00] VITALS: BP 120/74; PULSE 104; RESP 18; TEMP 36.9
== END 2024-02-09 01:17 | disposition home or self-care (01) ==
PROVIDERS: Emergency Provider Emergency Medicine; PCP Internal Medicine
DX: R33.9 Retention of urine, unspecified (principal); Z79.899 Other long term (current) drug therapy
CPT/HCPCS: 99282; 99284

== ENCOUNTER 2024-02-14 17:44 | Emergency (ER) | payer OTHER, SELFPAY ==
--- NOTE | ~2024-02-14 | XR_ITS ---
EXAMINATION: BILATERAL FEMURS CLINICAL INFORMATION: Bilateral femur pain with history of cancer COMPARISON: None available. TECHNIQUE: Single view each femur FINDINGS: No fracture or bony destructive lesion is seen. Extensive vascular calcification is present bilaterally. XR/XR femur LT 1V IMPRESSION: No evidence of a bony destructive lesion. Extensive vascular calcification.
--- NOTE | ~2024-02-14 | XR_ITS ---
EXAMINATION: BILATERAL FEMURS CLINICAL INFORMATION: Bilateral femur pain with history of cancer COMPARISON: None available. TECHNIQUE: Single view each femur FINDINGS: No fracture or bony destructive lesion is seen. Extensive vascular calcification is present bilaterally. XR/XR femur RT 1V IMPRESSION: No evidence of a bony destructive lesion. Extensive vascular calcification.
[2024-02-14 18:29] VITALS: BP 131/81; PULSE 96; RESP 16; TEMP 36.8; O2SAT 95
[2024-02-14 18:30] VITALS: BP 158/82; PULSE 107; O2SAT 98; BMI 19.2
--- NOTE | 2024-02-14 18:30 | MHC.EDTECH ---
PATIENT WAS BIBA FROM HOME ,VITALS ,PATIENT WAS CHANGE INTO HOSPITAL ATTIRE ,WARM BLANKET GIVEN AND CALL FARMER WITHIN PATIENT REACH .
--- NOTE | 2024-02-14 18:38 | ED_ITS ---
HPI - Extremity Problem General Chief complaint: Extremity Problem Stated complaint: BI LAT LEG PAIN, CANCER PT. STAGE 4 Time Seen by Provider: 02/14/24 18:37 Source: patient Mode of arrival: EMS Limitations: no limitations History of Present Illness HPI Narrative: Pt is a 68-year-old female with a PMH significant for?renal cell carcinoma (s/p left nephrectomy in 01/2020) with metastasis to the liver and lungs, currently on chemotherapy (oral lenvatinib, started 11/07/2023), COPD on prn home O2, HTN, HLD, & restless leg syndrome comes here for several days of pain in both lower femur area. Pain is off and on denies any muscle pain patient had a PET scan on 09/12/2023 which was negative bony lesions Related Data Home Medications ?Medication ?Instructions ?Recorded ?Confirmed atorvastatin 10 mg tablet 10 mg PO DAILY 09/28/23 11/12/23 famotidine 40 mg tablet 40 mg PO BEDTIME 09/28/23 11/12/23 hydrochlorothiazide 25 mg tablet 25 mg PO DAILY 09/28/23 11/12/23 nystatin 100,000 unit/mL oral 10 ml buccal TID PRN thrush 09/28/23 11/12/23 suspension umeclidinium 62.5 mcg/actuation 1 inh inhalation DAILY 09/28/23 11/12/23 blister powder for inhalation (Incruse Ellipta) bupropion HCl 150 mg 24 hr tablet, 150 mg PO DAILY 10/06/23 11/12/23 extended release amitriptyline 75 mg tablet 75 mg PO BEDTIME 11/12/23 11/12/23 fluticasone propionate 220 1 puff inhalation BID 11/12/23 11/12/23 mcg/actuation HFA aerosol inhaler mometasone 0.1 % topical cream 1 appl topical BID PRN Rash 11/12/23 11/12/23 ondansetron 8 mg disintegrating 8 mg PO Q8H PRN Nausea And Vomiting 11/12/23 11/12/23 tablet Previous Rx's ?Medication ?Instructions ?Recorded betamethasone dipropionate 0.05 % 1 appl topical BID PRN skin 10/07/22 topical cream irritation #45 grams albuterol sulfate 90 mcg/actuation 2 puff inhalation QID PRN 03/29/23 aerosol inhaler shortness of breath or wheezing #8.5 grams gabapentin 400 mg capsule 400 mg PO TID 90 days #270 caps 06/28/23 cholecalciferol (vitamin D3) 50 50 mcg PO DAILY 90 days #90 caps 07/10/23 mcg (2,000 unit) capsule ipratropium 0.5 mg-albuterol 3 mg 3 ml inhalation Q6H PRN shortness 07/25/23 (2.5 mg base)/3 mL nebulization of breath or wheezing 30 days #180 soln mL oxycodone-acetaminophen 5 mg-325 1 tab PO Q8H PRN low back pain 7 10/11/23 mg tablet days #21 tabs lenvatinib 20 mg/day (10 mg x 2) 20 mg PO DAILY #60 caps 10/20/23 capsule benzonatate 100 mg capsule 100 mg PO TID PRN Cough #9 caps 11/13/23 sennosides 8.6 mg capsule (senna) 8.6 mg PO BID PRN constipation #60 12/05/23 caps levothyroxine 25 mcg tablet 25 mcg PO DAILY #30 tabs 12/19/23 (Synthroid) clonazepam 0.5 mg tablet 0.5 mg PO TID PRN anxiety 30 days 12/25/23 #90 tabs pantoprazole 40 mg tablet,delayed 40 mg PO DAILY #90 tabs 12/26/23 release nitrofurantoin 100 mg PO Q12H 7 days #14 caps 12/29/23 monohydrate/macrocrystals 100 mg capsule (Macrobid) Magic Mouthwash 10 ml PO QID #240 mL 01/08/24 Diphen/Lido/Antacid 1:1:1 240 mL suspension triamcinolone acetonide 0.1 % 1 appl dental BID #30 grams 01/09/24 dental paste lidocaine HCl 2 % mucosal solution 1 appl mucous membrane QID #300 mL 01/22/24 (Lidocaine Viscous) nifedipine 30 mg tablet,extended 30 mg PO DAILY #90 tabs 02/08/24 release Allergies Allergy/AdvReac Type Severity Reaction Status Date / Time Sulfa (Sulfonamide Allergy Severe ANAPHYLAXIS Verified 02/14/24 18:34 Antibiotics) Penicillins Allergy Intermediate RASH Verified 02/08/24 23:40 aspirin [ASA] AdvReac Severe severe Verified 02/08/24 23:40 stomach pain NSAIDS (Non-Steroidal AdvReac Severe severe Verified 02/08/24 23:40 Anti-Inflamma stomach pain codeine [Codeine] AdvReac Intermediate NAUSEA & Verified 02/08/24 23:40 VOMITING PMFSH Past Medical History Medical History Liver lesion Right lower lobe lung mass Post-operative nausea and vomiting Dry eye COVID-19 COPD (chronic obstructive pulmonary disease) Malignant neoplasm of left kidney Vitamin D deficiency Depression Primary osteoarthritis of knees, bilateral Pure hypercholesterolemia Elevated C-reactive protein (CRP) Palpitations Constipation Obstructive sleep apnea Anxiety Benign essential hypertension Renal cell carcinoma of left kidney Oral thrush Lumbar degenerative disc disease Status post fall Right foot pain Chronic allergic bronchitis GERD (gastroesophageal reflux disease) Surgical History Metastatic renal cell carcinoma to lung H/O kidney removal Hx of oral surgery Hx of tonsillectomy Pulmonary nodule 1 cm or greater in diameter History of nephrectomy Family History Family History Father Hypertension CVD (cardiovascular disease) Cancer Mother Hypertension Substance abuse Other Mental health problem Social History Social History Household Members: Spouse and Family Household Members Other:: and brother and sister Housing: House Are you a primary managed care manager to a significant other at home: No Do you presently have visiting nurse or other home services: No Alcohol intake: never Comment: COUNTS CORRECT Patient Tobacco Use Status: Former Tobacco user Quit Date: 2011 Tobacco use type: Cigarette Cigarette Packs Per Day: 1.5 Years Smoked: 30 e-Cigarette/Vaping Use: Currently Using Second Hand Smoke Exposure: No Advance Directives: Yes Advance Directives on File: Yes Advance Directives Date on File: 11/29/23 Do you have a plan to hurt others: No Plan service: No Current occupational status: disabled Cognitive needs: No Hearing needs: No Vision needs: No Physical Exam 2 Vital Signs: Vital Signs: Last Vital Signs Temp 98.5 F 02/14/24 19:37 Pulse 98 02/14/24 19:37 Resp 16 02/14/24 19:37 BP 128/96 H 02/14/24 19:37 Pulse Ox 97 02/14/24 19:37 O2 Del Method Nasal Cannula 02/14/24 19:37 BMI result Body Mass Index 19.2 Medical Decision Making Lab Data 02/14/24 19:29 02/14/24 19:29 Labs: Lab Results 02/14/24 Range/Units 19:29 WBC 5.1 (4.8-10.8) X10*3/uL RBC 6.46 H (4.20-5.50) X10*6/uL Hgb 15.2 (12.0-16.0) g/dl Hct 50.2 H (37.0-47.0) % MCV 77.7 L (80.0-98.0) fL MCH 23.5 L (27.0-33.0) pg MCHC 30.3 L (31.0-35.0) g/dl RDW 19.3 H (11.0-16.0) % Plt Count 202 (160-400) X10*3/uL MPV 9.4 (9.4-12.3) fL Immature Gran % (Auto) 0.4 (0.0-0.4) % Neut % (Auto) 78.6 H (45-73) % Lymph % (Auto) 9.1 L (20-40) % Geary % (Auto) 10.9 (2-11) % Eos % (Auto) 0.4 (0-4) % Baso % (Auto) 0.6 (0-2) % Lymph # (Auto) 0.5 L (1.2-4.9) X10*3/uL Geary # (Auto) 0.6 (0.1-1.2) X10*3/uL Eos # (Auto) 0.0 (0.0-0.4) X10*3/uL Baso # (Auto) 0.0 (0.0-0.2) X10*3/uL Abs Immat Gran (auto) 0.02 (0.00-0.03) X10*3/uL Absolute Neuts (auto) 4.0 (2.0-8.3) x10*3/uL Absolute Nucleated RBC 0.000 (0.0-0.012) X10*3/uL Nucleated RBC % (auto) 0.0 (0.0-0.2) /100WBC Sodium 136 (135-145) mmol/L Potassium 5.5 H D (3.3-5.1) mmol/L Chloride 92 L (96-108) mmol/L Carbon Dioxide 32 H (22-29) mmol/L Anion Gap 18 (12-20) BUN 12 (9-16) mg/dL Creatinine 0.82 (0.5-1.4) mg/dL Estim Creat Clear Calc 50.0 Estimated GFR > 60 Random Glucose 77 (60-115) mg/dL Calcium 9.3 (8.4-10.2) mg/dL Magnesium 1.6 (1.6-2.6) mg/dL Total Bilirubin 0.6 (0.0-1.0) mg/dL AST 26 (5-31) U/L ALT 18 (0-31) U/L Alkaline Phosphatase 117 (39-117) U/L Total Creatine Kinase 29 (26-140) U/L Total Protein 6.6 (6.5-8.0) g/dL Albumin 3.2 L (3.5-5.0) g/dL Discharge Plan Discharge Clinical Impression: Bone pain of lower leg, Acute hyperkalemia Patient Disposition: Home, Self-Care Instructions: Hyperkalemia (ED), Leg Pain (ED) Additional Instructions: Continue take your pain medications as prescribed by PCP Drink plenty of fluids Cause of your leg pain is not clear Follow-up with your oncologist for further Your potassium was slightly elevated to 5.5 Avoid food containing high potassium Recheck potassium level in 3 days Prescriptions: No Action betamethasone dipropionate 0.05 % cream 1 appl topical BID PRN (Reason: skin irritation) Qty: 45 0RF gabapentin 400 mg capsule 400 mg PO TID 90 Days Qty: 270 1RF cholecalciferol (vitamin D3) 50 mcg (2,000 unit) capsule 50 mcg PO DAILY 90 Days Qty: 90 3RF oxycodone-acetaminophen 5-325 mg tablet 1 tab PO Q8H PRN (Reason: low back pain) 7 Days Qty: 21 0RF senna 8.6 mg capsule 8.6 mg PO BID PRN (Reason: constipation) Qty: 60 5RF clonazepam 0.5 mg tablet 0.5 mg PO TID PRN (Reason: anxiety) 30 Days Qty: 90 0RF pantoprazole 40 mg tablet,delayed release (DR/EC) 40 mg PO DAILY Qty: 90 1RF nifedipine 30 mg tablet extended release 30 mg PO DAILY Qty: 90 3RF nystatin 100,000 unit/mL suspension 10 ml buccal TID PRN (Reason: thrush) Rx Instructions: swish 1/2 of dose in each side of the mouth for up to 5 minutes, then spit out the medicine atorvastatin 10 mg tablet 10 mg PO DAILY famotidine 40 mg tablet 40 mg PO BEDTIME hydrochlorothiazide 25 mg tablet 25 mg PO DAILY Incruse Ellipta 62.5 mcg/actuation blister with device 1 inh inhalation DAILY bupropion HCl 150 mg tablet extended release 24 hr 150 mg PO DAILY lenvatinib 20 mg/day (10 mg x 2) Capsule 20 mg PO DAILY Qty: 60 4RF levothyroxine [Synthroid] 25 mcg Tablet 25 mcg PO DAILY Qty: 30 3RF Magic Mouthwash Diphen/Lido/Antacid 1:1:1 240 mL Suspension 10 ml PO QID Qty: 240 4RF Rx Instructions: Lidocaine Viscous 2 % 80mL; diphenhydramine 12.5 mg/5 mL 80mL; aluminum-mag hydrox-simeth [id number]/5mL 80mL triamcinolone acetonide 0.1 % Paste 1 appl DENTAL BID Qty: 30 2RF Rx Instructions: use after food and/or drink and/or oral hygiene lidocaine HCl [Lidocaine Viscous] 2 % Solution 1 appl MUCOUS MEMBRANE QID Qty: 300 3RF ondansetron 8 mg tablet,disintegrating 8 mg PO Q8H PRN (Reason: Nausea And Vomiting) fluticasone propionate 220 mcg/actuation HFA aerosol inhaler 1 puff INHALATION BID amitriptyline 75 mg tablet 75 mg PO BEDTIME mometasone 0.1 % cream 1 appl topical BID PRN (Reason: Rash) benzonatate 100 mg Capsule 100 mg PO TID PRN (Reason: Cough) Qty: 9 0RF nitrofurantoin monohyd/m-cryst [Macrobid] 100 mg capsule 100 mg PO Q12H 7 Days Qty: 14 0RF Rx Instructions: must administer with a meal/food albuterol sulfate 90 mcg/actuation HFA aerosol inhaler 2 puff inhalation QID PRN (Reason: shortness of breath or wheezing) Qty: 8.5 6RF ipratropium-albuterol 0.5 mg-3 mg(2.5 mg base)/3 mL solution for nebulization 3 ml inhalation Q6H PRN (Reason: shortness of breath or wheezing) 30 Days Qty: 180 6RF Print Language: Croatian
[2024-02-14 19:32] LABS: MANUAL DIFF FLAG NO
[2024-02-14 19:37] VITALS: BP 128/96; PULSE 98; RESP 16; TEMP 36.9; O2SAT 97
[2024-02-14 19:37] LABS: Basophils Percent Auto 0.6 % (0-2); Eosinophils Percent Auto 0.4 % (0-4); Hematocrit 50.2 % (37.0-47.0); Hemoglobin 15.2 g/dl (12.0-16.0); Imm Gran Abs Auto 0.02 X10*3/uL (0.00-0.03); Imm Gran Pct Auto 0.4 % (0.0-0.4); Lymphocytes Absolute Auto 0.5 X10*3/uL (1.2-4.9); Lymphocytes Percent Auto 9.1 % (20-40); Mean Corpuscular HGB Conc 30.3 g/dl (31.0-35.0); Mean Corpuscular Hemoglobin 23.5 pg (27.0-33.0); Mean Corpuscular Volume 77.7 fL (80.0-98.0); Mean Platelet Volume 9.4 fL (9.4-12.3); Monocytes Absolute Auto 0.6 X10*3/uL (0.1-1.2); Monocytes Percent Auto 10.9 % (2-11); Neutrophils Percent Auto 78.6 % (45-73); Platelet Count 202 X10*3/uL (160-400); Red Blood Count 6.46 X10*6/uL (4.20-5.50); Red Cell Distribution Width 19.3 % (11.0-16.0); White Blood Count 5.1 X10*3/uL (4.8-10.8)
[2024-02-14 19:47] LABS: Alanine Aminotransferase 18 U/L (0-31); Albumin Level 3.2 g/dL (3.5-5.0); Alkaline Phosphatase 117 U/L (39-117); Anion Gap 18 (12-20); Aspartate Amino Transferase 26 U/L (5-31); Bilirubin Total 0.6 mg/dL (0.0-1.0); Blood Urea Nitrogen 12 mg/dL (9-16); Calcium 9.3 mg/dL (8.4-10.2); Carbon Dioxide 32 mmol/L (22-29); Chloride 92 mmol/L (96-108); Estimated Glomerular Filt Rate > 60; Glucose Random 77 mg/dL (60-115); Magnesium 1.6 mg/dL (1.6-2.6); Potassium 5.5 mmol/L (3.3-5.1); Sodium 136 mmol/L (135-145); Total Protein 6.6 g/dL (6.5-8.0)
[2024-02-14] MEDS: Sodium Zirconium Cyclosilicate 10 GM POWD.PACK PO (20:48)
[2024-02-14 21:00] VITALS: BP 131/74; PULSE 95; RESP 18; TEMP 36.6; O2SAT 95
== END 2024-02-14 21:00 | disposition home or self-care (01) ==
PROVIDERS: Emergency Provider Internal Medicine; PCP Internal Medicine
DX: M89.8X6 Other specified disorders of bone, lower leg (principal); E87.5 Hyperkalemia; C78.7 Secondary malignant neoplasm of liver and intrahepatic bile duct; C78.00 Secondary malignant neoplasm of unspecified lung; Z85.53 Personal history of malignant neoplasm of renal pelvis; M79.605 Pain in left leg; M79.604 Pain in right leg; J44.9 Chronic obstructive pulmonary disease, unspecified; E78.5 Hyperlipidemia, unspecified; Z79.60 Long term (current) use of unspecified immunomodulators and immunosuppressants; Z99.81 Dependence on supplemental oxygen; Z79.899 Other long term (current) drug therapy
CPT/HCPCS: 36415; 73551; 80053; 82550; 83735; 85025; 99283; 99284

== ENCOUNTER 2024-02-17 16:06 | Emergency (ER) | payer OTHER, SELFPAY ==
--- NOTE | ~2024-02-17 | CT_ITS ---
EXAMINATION: CT head/brain wo IV con CT cervical spine wo IV con INDICATION INFORMATION: head trauma COMPARISON: CT head 02/07/2024 TECHNIQUE: Separate noncontrast CT examinations of the head and cervical spine were performed. Coronal and sagittal reformats were obtained at the acquisition workstation. This CT examination was performed using dose optimization techniques as appropriate, variously including the following: * Automated exposure control * Adjustment of mA and/or kV according to patient size (this includes techniques or standardized protocols for targeted exams where dose is matched to indication/reason for exam; i.e. extremities or head) * Use of iterative reconstruction technique DLP: 193 mGy-cm FINDINGS: HEAD: There is no evidence of acute intracranial hemorrhage or territorial infarction. Mao to white matter differentiation is well preserved. No abnormal mass effect or midline shift is seen. No extra-axial fluid collections are identified. No hydrocephalus. Proportional prominence of the ventricles and sulcal spaces is consistent with mild volume loss. Patchy periventricular and deep white matter hypoattenuation is consistent with moderate small vessel ischemic changes. The cerebellar tonsils are well positioned. No acute osseous or soft tissue abnormality. Visualized portions of the orbits are unremarkable. The mastoid air cells and visualized portions of the paranasal sinuses are well aerated. CERVICAL SPINE: No evidence of acute fracture or traumatic subluxation of the cervical spine. There is straightening of the normal cervical curvature with otherwise maintained sagittal alignment. Vertebral body heights are maintained. There is multilevel intervertebral disc space narrowing at C4-C6 with endplate osteophyte formation. No significant facet arthropathy. The atlantoaxial and atlantooccipital articulations are intact. No prevertebral soft tissue swelling. There is no cervical lymphadenopathy. The visualized thyroid gland is unremarkable. The visualized lung apices are clear. CT/CT cervical spine wo IV con IMPRESSION: 1. No acute intracranial pathology. 2. No acute osseous abnormality within the cervical spine.
--- NOTE | ~2024-02-17 | XR_ITS ---
EXAMINATION: XR CHEST CLINICAL INFORMATION: Weakness COMPARISON: Chest radiograph 02/07/2024 TECHNIQUE: Frontal view of the chest was obtained. FINDINGS: Chain sutures at the right hilum with similar postoperative perihilar linear densities/atelectasis. The lungs are well expanded. No dense focal consolidation, pleural effusion, pulmonary edema pneumothorax. The cardiomediastinal silhouette is within normal limits for technique and unchanged. No acute osseous abnormality. XR/XR chest 1V IMPRESSION: No acute pulmonary disease. No significant interval change compared to 02/07/2024.
[2024-02-17 16:31] VITALS: BP 104/66; BP 110/70; PULSE 90; PULSE 95; RESP 12; TEMP 36.4; O2SAT 99; BMI 19.8
--- NOTE | 2024-02-17 17:14 | ECG_ITS ---
Test Reason : PAIN Blood Pressure : / mmHG Vent. Rate : 086 BPM Atrial Rate : 086 BPM P-R Int : 138 ms QRS Dur : 088 ms QT Int : 374 ms P-R-T Axes : 065 026 080 degrees QTc Int : 447 ms Normal sinus rhythm Possible Left atrial enlargement Nonspecific ST and T wave abnormality Abnormal ECG When compared with ECG of 07-FEB-2024 18:48, Nonspecific T wave abnormality now evident in Lateral leads Referred By: Otis Ndiaye Electronically Signed By:CHANCE CARRINGTON MD
[2024-02-17 17:28] LABS: MANUAL DIFF FLAG NO
[2024-02-17 17:30] LABS: Eosinophils Absolute Auto 0.1 X10*3/uL (0.0-0.4); Eosinophils Percent Auto 2.3 % (0-4); Hematocrit 45.3 % (37.0-47.0); Hemoglobin 13.8 g/dl (12.0-16.0); Imm Gran Abs Auto 0.01 X10*3/uL (0.00-0.03); Imm Gran Pct Auto 0.3 % (0.0-0.4); Lymphocytes Absolute Auto 0.6 X10*3/uL (1.2-4.9); Lymphocytes Percent Auto 16.2 % (20-40); Mean Corpuscular HGB Conc 30.5 g/dl (31.0-35.0); Mean Corpuscular Hemoglobin 23.6 pg (27.0-33.0); Mean Corpuscular Volume 77.6 fL (80.0-98.0); Mean Platelet Volume 9.1 fL (9.4-12.3); Monocytes Absolute Auto 0.5 X10*3/uL (0.1-1.2); Monocytes Percent Auto 12.1 % (2-11); Neutrophils Absolute Auto 2.6 x10*3/uL (2.0-8.3); Neutrophils Percent Auto 68.1 % (45-73); Platelet Count 190 X10*3/uL (160-400); Red Blood Count 5.84 X10*6/uL (4.20-5.50); Red Cell Distribution Width 18.6 % (11.0-16.0); White Blood Count 3.9 X10*3/uL (4.8-10.8)
[2024-02-17] MEDS: 0.9 % Sodium Chloride 1,000 ML 999 ML IV (17:34)
[2024-02-17 17:37] LABS: INTERNATIONAL NORM RATIO 1.2 (0.9-1.1); Prothrombin Time 14.4 SEC (11.1-13.3)
[2024-02-17 17:40] LABS: Partial Thromboplastin Time 35.5 SEC (26.0-36.8)
[2024-02-17 17:44] LABS: Alanine Aminotransferase 13 U/L (0-31); Albumin Level 3.1 g/dL (3.5-5.0); Alkaline Phosphatase 98 U/L (39-117); Anion Gap 15 (12-20); Aspartate Amino Transferase 22 U/L (5-31); Bilirubin Total 0.4 mg/dL (0.0-1.0); Blood Urea Nitrogen 16 mg/dL (9-16); Calcium 8.9 mg/dL (8.4-10.2); Carbon Dioxide 33 mmol/L (22-29); Chloride 93 mmol/L (96-108); Creatinine Clr Calc Pharmacy 49.4; Estimated Glomerular Filt Rate > 60; Glucose Random 105 mg/dL (60-115); Lipase 27 U/L (8-78); Potassium 3.5 mmol/L (3.3-5.1); Sodium 137 mmol/L (135-145); Total Protein 6.3 g/dL (6.5-8.0)
[2024-02-17 17:49] LABS: B Type Natriuretic Peptide 24 pg/mL (<100)
--- NOTE | 2024-02-17 18:02 | ED_ITS ---
HPI - General Adult General Chief complaint: Fall Stated complaint: fall w/ head strike, collared, witnessed, no LOC Time Seen by Provider: 02/17/24 16:26 Source: patient, RN notes reviewed and old records reviewed Mode of arrival: EMS Limitations: other (Patient arrives in a hard C-collar) History of Present Illness HPI narrative: 68-year-old female with past medical history significant for COPD, cervical radiculopathy, bronchiectasis, sleep apnea, renal cell carcinoma, hypertension, GERD presents for evaluation after a fall. Patient reports multiple falls this week and a least 2 falls today. This fall was witnessed by her . The patient reports bruising to her right cheek and nose. That is unclear if this is from the fall just before arrival or blood in her earlier falls this week. There was no loss of consciousness. She has not on any blood thinners She denies any pain She and her reports the patient has not been eating much throughout this week. She describes no appetite but denies any nausea vomiting Patient had an ensure earlier today and that was it No other complaints or concerns at this time Related Data Home Medications ?Medication ?Instructions ?Recorded ?Confirmed atorvastatin 10 mg tablet 10 mg PO DAILY 09/28/23 11/12/23 famotidine 40 mg tablet 40 mg PO BEDTIME 09/28/23 11/12/23 hydrochlorothiazide 25 mg tablet 25 mg PO DAILY 09/28/23 11/12/23 nystatin 100,000 unit/mL oral 10 ml buccal TID PRN thrush 09/28/23 11/12/23 suspension umeclidinium 62.5 mcg/actuation 1 inh inhalation DAILY 09/28/23 11/12/23 blister powder for inhalation (Incruse Ellipta) bupropion HCl 150 mg 24 hr tablet, 150 mg PO DAILY 10/06/23 11/12/23 extended release amitriptyline 75 mg tablet 75 mg PO BEDTIME 11/12/23 11/12/23 fluticasone propionate 220 1 puff inhalation BID 11/12/23 11/12/23 mcg/actuation HFA aerosol inhaler mometasone 0.1 % topical cream 1 appl topical BID PRN Rash 11/12/23 11/12/23 ondansetron 8 mg disintegrating 8 mg PO Q8H PRN Nausea And Vomiting 11/12/23 11/12/23 tablet Previous Rx's ?Medication ?Instructions ?Recorded betamethasone dipropionate 0.05 % 1 appl topical BID PRN skin 10/07/22 topical cream irritation #45 grams albuterol sulfate 90 mcg/actuation 2 puff inhalation QID PRN 12/28/22 aerosol inhaler shortness of breath or wheezing #8.5 grams gabapentin 400 mg capsule 400 mg PO TID 90 days #270 caps 06/28/23 cholecalciferol (vitamin D3) 50 50 mcg PO DAILY 90 days #90 caps 07/10/23 mcg (2,000 unit) capsule ipratropium 0.5 mg-albuterol 3 mg 3 ml inhalation Q6H PRN shortness 07/25/23 (2.5 mg base)/3 mL nebulization of breath or wheezing 30 days #180 soln mL oxycodone-acetaminophen 5 mg-325 1 tab PO Q8H PRN low back pain 7 10/11/23 mg tablet days #21 tabs lenvatinib 20 mg/day (10 mg x 2) 20 mg PO DAILY #60 caps 10/20/23 capsule benzonatate 100 mg capsule 100 mg PO TID PRN Cough #9 caps 11/13/23 sennosides 8.6 mg capsule (senna) 8.6 mg PO BID PRN constipation #60 12/05/23 caps levothyroxine 25 mcg tablet 25 mcg PO DAILY #30 tabs 12/19/23 (Synthroid) clonazepam 0.5 mg tablet 0.5 mg PO TID PRN anxiety 30 days 12/25/23 #90 tabs pantoprazole 40 mg tablet,delayed 40 mg PO DAILY #90 tabs 12/26/23 release nitrofurantoin 100 mg PO Q12H 7 days #14 caps 12/29/23 monohydrate/macrocrystals 100 mg capsule (Macrobid) Magic Mouthwash 10 ml PO QID #240 mL 01/08/24 Diphen/Lido/Antacid 1:1:1 240 mL suspension triamcinolone acetonide 0.1 % 1 appl dental BID #30 grams 01/09/24 dental paste lidocaine HCl 2 % mucosal solution 1 appl mucous membrane QID #300 mL 01/22/24 (Lidocaine Viscous) nifedipine 30 mg tablet,extended 30 mg PO DAILY #90 tabs 02/08/24 release Allergies Allergy/AdvReac Type Severity Reaction Status Date / Time Sulfa (Sulfonamide Allergy Severe ANAPHYLAXIS Verified 02/17/24 16:35 Antibiotics) Penicillins Allergy Intermediate RASH Verified 02/08/24 23:40 aspirin [ASA] AdvReac Severe severe Verified 02/08/24 23:40 stomach pain NSAIDS (Non-Steroidal AdvReac Severe severe Verified 02/08/24 23:40 Anti-Inflamma stomach pain codeine [Codeine] AdvReac Intermediate NAUSEA & Verified 02/08/24 23:40 VOMITING Review of Systems 2 Constitutional: Constitutional: Denies body ache(s), Denies chills, Denies fever(s), Reports frequent falls and Reports poor appetite Eyes: Eyes: Denies blurry vision ENT: Denies neck pain and Denies sore throat Cardiovascular: Cardiovascular: Denies chest pain and Denies dyspnea Respiratory: Respiratory: Denies cough and Denies dyspnea Gastrointestinal: Gastrointestinal: Denies abdominal pain, Denies nausea and Denies vomiting Musculoskeletal: Musculoskeletal: Denies back pain and Denies neck pain Integumentary/Breasts: Skin/Breast: Denies rash Neurologic: Reports frequent falls Psychiatric: Psychiatric: Denies anxiety PMFSH Past Medical History Medical History Liver lesion Right lower lobe lung mass Post-operative nausea and vomiting Dry eye COVID-19 COPD (chronic obstructive pulmonary disease) Malignant neoplasm of left kidney Vitamin D deficiency Depression Primary osteoarthritis of knees, bilateral Pure hypercholesterolemia Elevated C-reactive protein (CRP) Palpitations Constipation Obstructive sleep apnea Anxiety Benign essential hypertension Renal cell carcinoma of left kidney Oral thrush Lumbar degenerative disc disease Status post fall Right foot pain Chronic allergic bronchitis GERD (gastroesophageal reflux disease) Surgical History Metastatic renal cell carcinoma to lung H/O kidney removal Hx of oral surgery Hx of tonsillectomy Pulmonary nodule 1 cm or greater in diameter History of nephrectomy Family History Family History Father Hypertension CVD (cardiovascular disease) Cancer Mother Hypertension Substance abuse Other Mental health problem Social History Social History Household Members: Spouse and Family Household Members Other:: and brother and sister Housing: House Are you a primary hospice care consultant to a significant other at home: No Do you presently have visiting nurse or other home services: No Alcohol intake: never Comment: COUNTS CORRECT Patient Tobacco Use Status: Former Tobacco user Quit Date: 2011 Tobacco use type: Cigarette Cigarette Packs Per Day: 1.5 Years Smoked: 30 Smoked in Last 30 Days: No e-Cigarette/Vaping Use: Currently Using Second Hand Smoke Exposure: No Use of substances other than those prescribed or required for medical reasons: No Advance Directives: Yes Advance Directives on File: Yes Advance Directives Date on File: 11/29/23 Do you have a plan to hurt others: No Plan service: No Current occupational status: disabled Cognitive needs: No Hearing needs: No Vision needs: No Physical Exam ED Vital Signs: Vital Signs - 24 hr 02/17/24 16:31 02/17/24 21:35 Temperature 97.5 F 97 F Pulse Rate 95 77 Respiratory Rate 12 16 Blood Pressure 104/66 146/97 H Pulse Oximetry 99 97 Oxygen Delivery Method Nasal Cannula Nasal Cannula BMI result Body Mass Index 19.8 Const General: healthy appearing, comfortable, no acute distress, alert and awake Nutritional Appearance: thin and underweight Orientation/consciousness: patient oriented x3 HENMT Other: She has ecchymosis to the right cheek over the zygomatic arch and the tip of the nose. No lacerations or deep wounds. No step-offs or deformities to the facial bones Throat: Yes posterior oropharynx normal Eyes Eyelids: Yes eyelids normal Conjunctivae: conjunctivae normal Sclerae: sclerae normal Corneas: corneas normal Pupils: Equal, round and reactive pupils present EOM: EOMs intact bilaterally Resp Effort & Inspection: normal respiratory effort, able to speak in complete sentences, no audible wheezes and not labored Auscultation: clear to auscultation bilaterally Cardio Rate: regular rate Rhythm: regular rhythm GI Inspection: No distended Palpation (GI): Soft to palpation, not firm, nontender, no guarding and not rigid Back/Spine/Pelvis Other: Patient is in a hard C-collar. There is no C-spine tenderness on exam Skin General skin exam: elasticity normal Neuro General: patient oriented x3 Cranial nerves: Yes CN's II-XII intact bilaterally, Yes Equal, round and reactive pupils present and Yes Bilaterally intact EOM present Cognition (Neuro): normal cognition Extrem Other: Moving all extremities well without any obvious deformities Course Reevaluation(s) Reevaluation #1: Patient's medical workup largely unremarkable. Given the patient's weakness and reported frequent falls I recommended physical therapy and case management evaluation morning. The patient would prefer to go home tonight with her . I encouraged her to reach out to her primary doctor for social media intern consult and possible as the therapy Time: 23:05 Medications Administered Discontinued Medications Generic Name Dose Route Start Last Admin Trade Name Laurel PRN Reason Stop Dose Admin Sodium Chloride 1,000 mls @ 999 mls/hr 02/17/24 17:15 02/17/24 21:36 Ns IV 02/17/24 18:15 Infused .Q1H1M ENE Infusion Medical Decision Making Medical Decision Making [facility] Narrative: 68-year-old female with past medical history as documented above presents for evaluation after a fall. This describes a nonsyncopal fall by the patient and her who witnessed the fall. She arrives in his C-collar. Will get a CT scan of the brain and C-spine. She will get a cardiac workup. She does endorse poor appetite over last week. Her abdomen is nontender. This may related to orthostasis or failure to thrive. Further workup as indicated. Differential Diagnosis Differential Diagnoses: The differential diagnosis associated with the presentation includes Failure to thrive Mechanical fall Syncope Orthostatic hypotension Nasal fracture Facial fracture Intracranial hemorrhage Cervical fracture Renal cell carcinoma Lab Data [facility] Lab Attestation statement: I reviewed the patient's lab results. Patient has a mild leukopenia 3.9. She has no significant anemia. Normal platelet count. Sodium and potassium within normal limits. Her chloride is low at 93 and her CO2 is elevated to 33. She does have a history of COPD and this is consistent with that. Renal function within normal limits. Glucose normal at 105 for a random screening 02/17/24 17:24 02/17/24 17:24 Labs: Lab Results 02/17/24 Range/Units 17:24 WBC 3.9 L (4.8-10.8) X10*3/uL RBC 5.84 H (4.20-5.50) X10*6/uL Hgb 13.8 (12.0-16.0) g/dl Hct 45.3 (37.0-47.0) % MCV 77.6 L (80.0-98.0) fL MCH 23.6 L (27.0-33.0) pg MCHC 30.5 L (31.0-35.0) g/dl RDW 18.6 H (11.0-16.0) % Plt Count 190 (160-400) X10*3/uL MPV 9.1 L (9.4-12.3) fL Immature Gran % (Auto) 0.3 (0.0-0.4) % Neut % (Auto) 68.1 (45-73) % Lymph % (Auto) 16.2 L (20-40) % [place] % (Auto) 12.1 H (2-11) % Eos % (Auto) 2.3 (0-4) % Baso % (Auto) 1.0 (0-2) % Lymph # (Auto) 0.6 L (1.2-4.9) X10*3/uL [place] # (Auto) 0.5 (0.1-1.2) X10*3/uL Eos # (Auto) 0.1 (0.0-0.4) X10*3/uL Baso # (Auto) 0.0 (0.0-0.2) X10*3/uL Abs Immat Gran (auto) 0.01 (0.00-0.03) X10*3/uL Absolute Neuts (auto) 2.6 (2.0-8.3) x10*3/uL Absolute Nucleated RBC 0.000 (0.0-0.012) X10*3/uL Nucleated RBC % (auto) 0.0 (0.0-0.2) /100WBC PT 14.4 H (11.1-13.3) SEC INR 1.2 H (0.9-1.1) APTT 35.5 (26.0-36.8) SEC Sodium 137 (135-145) mmol/L Potassium 3.5 D (3.3-5.1) mmol/L Chloride 93 L (96-108) mmol/L Carbon Dioxide 33 H (22-29) mmol/L Anion Gap 15 (12-20) BUN 16 (9-16) mg/dL Creatinine 0.83 (0.5-1.4) mg/dL Estim Creat Clear Calc 49.4 Estimated GFR > 60 Random Glucose 105 (60-115) mg/dL Calcium 8.9 (8.4-10.2) mg/dL Total Bilirubin 0.4 (0.0-1.0) mg/dL AST 22 (5-31) U/L ALT 13 (0-31) U/L Alkaline Phosphatase 98 (39-117) U/L Troponin I High Sens 15.0 D (<3.5-17.0) ng/L B-Natriuretic Peptide 24 (<100) pg/mL Total Protein 6.3 L (6.5-8.0) g/dL Albumin 3.1 L (3.5-5.0) g/dL Lipase 27 (8-78) U/L Influenza Type A (PCR) NEGATIVE (Negative) Influenza Type B (PCR) NEGATIVE (Negative) RSV RNA Qual (PCR) NEGATIVE (Negative) SARS-CoV-2 RNA (RT-PCR) NEGATIVE (Negative) Independent Interpretation I performed an independent interpretation of an: EKG (Normal sinus rhythm with a rate of 86 beats per minute. No significant change when compared to previous from February 07, 2024) Discharge Plan Discharge Clinical Impression: Falls frequently Patient Disposition: Home, Self-Care Instructions: Failure to Thrive (ED) Additional Instructions: Your workup in the ER today was reassuring. I recommend that you call your doctor on Monday to discuss possible physical therapy to prevent future falls If you do not feel safe at home, you may return to the ER Take her medications as prescribed Return for new or worsening symptoms Prescriptions: No Action betamethasone dipropionate 0.05 % cream 1 appl topical BID PRN (Reason: skin irritation) Qty: 45 0RF gabapentin 400 mg capsule 400 mg PO TID 90 Days Qty: 270 1RF cholecalciferol (vitamin D3) 50 mcg (2,000 unit) capsule 50 mcg PO DAILY 90 Days Qty: 90 3RF oxycodone-acetaminophen 5-325 mg tablet 1 tab PO Q8H PRN (Reason: low back pain) 7 Days Qty: 21 0RF senna 8.6 mg capsule 8.6 mg PO BID PRN (Reason: constipation) Qty: 60 5RF clonazepam 0.5 mg tablet 0.5 mg PO TID PRN (Reason: anxiety) 30 Days Qty: 90 0RF pantoprazole 40 mg tablet,delayed release (DR/EC) 40 mg PO DAILY Qty: 90 1RF nifedipine 30 mg tablet extended release 30 mg PO DAILY Qty: 90 3RF nystatin 100,000 unit/mL suspension 10 ml buccal TID PRN (Reason: thrush) Rx Instructions: swish 1/2 of dose in each side of the mouth for up to 5 minutes, then spit out the medicine atorvastatin 10 mg tablet 10 mg PO DAILY famotidine 40 mg tablet 40 mg PO BEDTIME hydrochlorothiazide 25 mg tablet 25 mg PO DAILY Incruse Ellipta 62.5 mcg/actuation blister with device 1 inh inhalation DAILY bupropion HCl 150 mg tablet extended release 24 hr 150 mg PO DAILY lenvatinib 20 mg/day (10 mg x 2) Capsule 20 mg PO DAILY Qty: 60 4RF levothyroxine [Synthroid] 25 mcg Tablet 25 mcg PO DAILY Qty: 30 3RF Magic Mouthwash Diphen/Lido/Antacid 1:1:1 240 mL Suspension 10 ml PO QID Qty: 240 4RF Rx Instructions: Lidocaine Viscous 2 % 80mL; diphenhydramine 12.5 mg/5 mL 80mL; aluminum-mag hydrox-simeth [id number]/5mL 80mL triamcinolone acetonide 0.1 % Paste 1 appl DENTAL BID Qty: 30 2RF Rx Instructions: use after food and/or drink and/or oral hygiene lidocaine HCl [Lidocaine Viscous] 2 % Solution 1 appl MUCOUS MEMBRANE QID Qty: 300 3RF ondansetron 8 mg tablet,disintegrating 8 mg PO Q8H PRN (Reason: Nausea And Vomiting) fluticasone propionate 220 mcg/actuation HFA aerosol inhaler 1 puff INHALATION BID amitriptyline 75 mg tablet 75 mg PO BEDTIME mometasone 0.1 % cream 1 appl topical BID PRN (Reason: Rash) benzonatate 100 mg Capsule 100 mg PO TID PRN (Reason: Cough) Qty: 9 0RF nitrofurantoin monohyd/m-cryst [Macrobid] 100 mg capsule 100 mg PO Q12H 7 Days Qty: 14 0RF Rx Instructions: must administer with a meal/food albuterol sulfate 90 mcg/actuation HFA aerosol inhaler 2 puff inhalation QID PRN (Reason: shortness of breath or wheezing) Qty: 8.5 6RF ipratropium-albuterol 0.5 mg-3 mg(2.5 mg base)/3 mL solution for nebulization 3 ml inhalation Q6H PRN (Reason: shortness of breath or wheezing) 30 Days Qty: 180 6RF Print Language: Citizen Of [place]
[2024-02-17 18:29] LABS: Influenza A PCR NEGATIVE (Negative); Influenza B PCR NEGATIVE (Negative); Resp Syncy Virus RNA Qual PCR NEGATIVE (Negative); SARS COV2 PCR INHOUSE NEGATIVE (Negative)
[2024-02-17 21:35] VITALS: BP 146/97; PULSE 77; RESP 16; TEMP 36.1; O2SAT 97
[2024-02-17 23:28] VITALS: BP 146/97; PULSE 77; RESP 16; TEMP 36.1; O2SAT 97
== END 2024-02-17 23:29 | disposition home or self-care (01) ==
PROVIDERS: Physician Assistant; Emergency Provider Internal Medicine; PCP Internal Medicine
DX: S00.83XA Contusion of other part of head, initial encounter (principal); S00.33XA Contusion of nose, initial encounter; W18.30XA Fall on same level, unspecified, initial encounter; Y93.9 Activity, unspecified; Y92.9 Unspecified place or not applicable; Y99.9 Unspecified external cause status; Z03.818 Encounter for observation for suspected exposure to other biological agents ruled out; J44.9 Chronic obstructive pulmonary disease, unspecified; M54.12 Radiculopathy, cervical region; I10 Essential (primary) hypertension; K21.9 Gastro-esophageal reflux disease without esophagitis
CPT/HCPCS: 0241U; 70450; 71045; 72125; 80053; 83690; 83880; 84484; 85025; 85610; 85730; 93005; 96360; 96361; 99285

== ENCOUNTER → 2024-02-17 17:14 | Outpatient (BNV) | payer OTHER, SELFPAY | PROVIDERS: Emergency Provider Internal Medicine; PCP Internal Medicine; Visit Provider Internal Medicine Cardiovascular Disease | DX: R94.31 Abnormal electrocardiogram [ECG] [EKG] (principal) | CPT/HCPCS: 93010 ==

== ENCOUNTER 2024-02-27 11:02 | Inpatient (IN) | payer OTHER, SELFPAY ==
[2024-02-27] VITALS (9 sets, daily range): BP systolic 144–177; BP diastolic 85–97; PULSE 81–103; RESP 16–22; TEMP 36.4–37.6; O2SAT 97–100; BMI 19.4
--- NOTE | ~2024-02-27 | XR_ITS ---
EXAMINATION: XR CHEST CLINICAL INFORMATION: Shortness of breath COMPARISON: Chest radiograph 02/17/2024 CT angiogram chest 11/11/2023 TECHNIQUE: Frontal view of the chest was obtained. FINDINGS: Again seen is volume loss in the right thorax and chain sutures adjacent to the right hilum suggesting partial pneumonectomy. Heart size is normal measures no evidence of CHF. Some coarse reticular nodular markings are seen in the right lung, worse at the bases, probably similar to prior chest radiograph as well as CT scan. No focal consolidation, pneumothorax or pleural effusion. XR/XR chest 1V IMPRESSION: No acute intrathoracic disease. Postsurgical changes right thorax.
--- NOTE | ~2024-02-27 | CT_ITS ---
EXAMINATION: CT ANGIOGRAM OF THE CHEST WITH AND WITHOUT CONTRAST (CT PULMONARY ANGIOGRAM FOR PE) CLINICAL INFORMATION: hypoxia. renal cell carcinoma COMPARISON: CT chest 11/11/2023, MR abdomen 10/24/2023 TECHNIQUE: Prior to contrast administration, noncontrast localization images were obtained. Subsequently, multidetector volumetric imaging was performed from the thoracic inlet to below the diaphragms following the administration of 80 mL Omnipaque 350 intravenous contrast. No contrast reaction reported Sagittal, coronal, and MIP oblique sagittal reformatted images were obtained on the CT workstation, uploaded to PACS, and reviewed. This CT examination was performed using dose optimization techniques as appropriate, variously including the following: *Automated exposure control *Adjustment of mA and/or kV according to patient size (this includes techniques or standardized protocols for targeted exams where dose is matched to indication/reason for exam; i.e. extremities or head) *Use of iterative reconstruction technique Total exam dose-length product 170 mGy-cm FINDINGS: QUALITY OF STUDY/CONTRAST BOLUS: Satisfactory. PULMONARY ARTERIES: There is small volume occlusive pulmonary embolism in the left lingular subsegmental pulmonary artery. THORACIC AORTA: No aneurysm. Eccentric plaque along the anterior thoracoabdominal aorta the diaphragm, as before. LUNG: Central airways are patent. Diffuse centrilobular emphysema. Several changes status post right upper lobe wedge resection redemonstrated. Nodular opacities are seen bilaterally predominantly in the dependent portions of the pulmonary lobes, increased from prior. No pleural effusion or pneumothorax. MEDIASTINUM: Normal heart size. No pericardial effusion. No hilar or mediastinal lymphadenopathy. No evidence of septal bowing or right heart strain. CORONARY ARTERY CALCIFICATION: Present. CHEST WALL/AXILLA: No axillary or internal mammary lymphadenopathy. OSSEOUS STRUCTURES: No acute or suspicious osseous abnormality. UPPER ABDOMEN: Right hepatic hypodense lesion with nodular enhancement and measures 3.2 x 2.7 cm (series #5 axial image 49), compared to 4.6 x 4.1 cm by my measurement on prior. There is mild reflux of contrast into the IVC, suggestive of increased right heart pressure. CT/CT angio chest PE protocol IMPRESSION: 1. There is small volume occlusive pulmonary embolism in the left lingular subsegmental pulmonary artery. 2. Nodular opacities are seen bilaterally predominantly in the dependent portions of the pulmonary lobes, increased from prior. This could represent infectious/inflammatory process versus aspiration. 3. Right hepatic hypodense lesion with nodular enhancement redemonstrated, concerning for malignancy as seen on MR 10/24/2023. VTE: positive. These results were discussed with OMAIRA Samson by telephone on 02/27/2024 at 5:23 PM and it was ascertained that the content of the report was understood at the time of direct communication.
--- NOTE | 2024-02-27 11:20 | ED_ITS ---
HPI - SOB/Dyspnea General Chief Complaint: Dyspnea Stated Complaint: LOW SAT 94% 2LPM, 98% 2LPM @ [facility] Time Seen by Provider: 02/27/24 11:06 Source: patient, EMS, RN notes reviewed and old records reviewed Mode of arrival: EMS History of Present Illness ED Provider: Dee Dee Thomas PA-C HPI Narrative: 68-year-old female with a past medical history of COPD on home O2 as needed, cervical radiculopathy, bronchiectasis, sleep apnea, renal cell carcinoma s/p left nephrectomy in 01/2020 currently on chemotherapy, HTN, GERD, presenting to the ED via EMS for hypoxia noted at home, 54% on RA per , anorexia, and increased lethargy/weakness. History obtained from , patient poor historian. States patient has been having to use her oxygen more regularly. admits patient is chronically confused, at baseline today. Denies recent falls or injury. Patient denies CP, abdominal pain MD elicited complaint: shortness of breath Related Data Home Medications ?Medication ?Instructions ?Recorded ?Confirmed atorvastatin 10 mg tablet 10 mg PO DAILY 09/28/23 11/12/23 famotidine 40 mg tablet 40 mg PO BEDTIME 09/28/23 11/12/23 hydrochlorothiazide 25 mg tablet 25 mg PO DAILY 09/28/23 11/12/23 nystatin 100,000 unit/mL oral 10 ml buccal TID PRN thrush 09/28/23 11/12/23 suspension umeclidinium 62.5 mcg/actuation 1 inh inhalation DAILY 09/28/23 11/12/23 blister powder for inhalation (Incruse Ellipta) bupropion HCl 150 mg 24 hr tablet, 150 mg PO DAILY 10/06/23 11/12/23 extended release amitriptyline 75 mg tablet 75 mg PO BEDTIME 11/12/23 11/12/23 fluticasone propionate 220 1 puff inhalation BID 11/12/23 11/12/23 mcg/actuation HFA aerosol inhaler mometasone 0.1 % topical cream 1 appl topical BID PRN Rash 11/12/23 11/12/23 ondansetron 8 mg disintegrating 8 mg PO Q8H PRN Nausea And Vomiting 11/12/23 11/12/23 tablet Previous Rx's ?Medication ?Instructions ?Recorded betamethasone dipropionate 0.05 % 1 appl topical BID PRN skin 10/07/22 topical cream irritation #45 grams albuterol sulfate 90 mcg/actuation 2 puff inhalation QID PRN 12/28/22 aerosol inhaler shortness of breath or wheezing #8.5 grams gabapentin 400 mg capsule 400 mg PO TID 90 days #270 caps 06/28/23 cholecalciferol (vitamin D3) 50 50 mcg PO DAILY 90 days #90 caps 07/10/23 mcg (2,000 unit) capsule ipratropium 0.5 mg-albuterol 3 mg 3 ml inhalation Q6H PRN shortness 07/25/23 (2.5 mg base)/3 mL nebulization of breath or wheezing 30 days #180 soln mL oxycodone-acetaminophen 5 mg-325 1 tab PO Q8H PRN low back pain 7 10/11/23 mg tablet days #21 tabs lenvatinib 20 mg/day (10 mg x 2) 20 mg PO DAILY #60 caps 10/20/23 capsule benzonatate 100 mg capsule 100 mg PO TID PRN Cough #9 caps 11/13/23 sennosides 8.6 mg capsule (senna) 8.6 mg PO BID PRN constipation #60 12/05/23 caps levothyroxine 25 mcg tablet 25 mcg PO DAILY #30 tabs 12/19/23 (Synthroid) clonazepam 0.5 mg tablet 0.5 mg PO TID PRN anxiety 30 days 12/25/23 #90 tabs pantoprazole 40 mg tablet,delayed 40 mg PO DAILY #90 tabs 12/26/23 release nitrofurantoin 100 mg PO Q12H 7 days #14 caps 12/29/23 monohydrate/macrocrystals 100 mg capsule (Macrobid) Magic Mouthwash 10 ml PO QID #240 mL 01/08/24 Diphen/Lido/Antacid 1:1:1 240 mL suspension triamcinolone acetonide 0.1 % 1 appl dental BID #30 grams 01/09/24 dental paste lidocaine HCl 2 % mucosal solution 1 appl mucous membrane QID #300 mL 01/22/24 (Lidocaine Viscous) nifedipine 30 mg tablet,extended 30 mg PO DAILY #90 tabs 02/08/24 release Allergies Allergy/AdvReac Type Severity Reaction Status Date / Time Sulfa (Sulfonamide Allergy Severe ANAPHYLAXIS Verified 02/27/24 11:15 Antibiotics) Penicillins Allergy Intermediate RASH Verified 02/27/24 11:15 aspirin [ASA] AdvReac Severe severe Verified 02/27/24 11:15 stomach pain NSAIDS (Non-Steroidal AdvReac Severe severe Verified 02/27/24 11:15 Anti-Inflamma stomach pain codeine [Codeine] AdvReac Intermediate NAUSEA & Verified 02/27/24 11:15 VOMITING Review of Systems 2 Review of Systems: Constitutional: No Fever, No Chills, +lethargy, +anorexia Cardiovascular: No Chest Pain, + SOB Respiratory: No Cough Gastrointestinal: No Nausea, No Vomiting, No Abdominal pain Musculoskeletal: No joint pain, No Myalgias Skin: No Skin Lesions, No rash Neuro: + Weakness Yes all other systems are reviewed and are negative Constitutional: Constitutional: Reports as per [facility] Past Medical History Attestation statement: The following information was validated with the patient. Source: old records reviewed Medical History Liver lesion Right lower lobe lung mass Post-operative nausea and vomiting Dry eye COVID-19 COPD (chronic obstructive pulmonary disease) Malignant neoplasm of left kidney Vitamin D deficiency Depression Primary osteoarthritis of knees, bilateral Pure hypercholesterolemia Elevated C-reactive protein (CRP) Palpitations Constipation Obstructive sleep apnea Anxiety Benign essential hypertension Renal cell carcinoma of left kidney Oral thrush Lumbar degenerative disc disease Status post fall Right foot pain Chronic allergic bronchitis GERD (gastroesophageal reflux disease) Surgical History Metastatic renal cell carcinoma to lung H/O kidney removal Hx of oral surgery Hx of tonsillectomy Pulmonary nodule 1 cm or greater in diameter History of nephrectomy Family History Family History Father Hypertension CVD (cardiovascular disease) Cancer Mother Hypertension Substance abuse Other Mental health problem Social History Social History Household Members: Spouse and Family Household Members Other:: and brother and sister Housing: House Are you a primary district manager primary care sales to a significant other at home: No Do you presently have visiting nurse or other home services: No Alcohol intake: never Comment: COUNTS CORRECT Patient Tobacco Use Status: Former Tobacco user Quit Date: 2011 Tobacco use type: Cigarette Cigarette Packs Per Day: 1.5 Years Smoked: 30 Smoked in Last 30 Days: No e-Cigarette/Vaping Use: Currently Using Second Hand Smoke Exposure: No Use of substances other than those prescribed or required for medical reasons: No Advance Directives: Yes Advance Directives on File: Yes Advance Directives Date on File: 11/29/23 Do you have a plan to hurt others: No Plan service: No Current occupational status: disabled Cognitive needs: No Hearing needs: No Vision needs: No Physical Exam 2 Vital Signs: Vital Signs: Last Vital Signs Temp 98.9 F 02/27/24 13:32 Pulse 89 02/27/24 13:32 Resp 19 02/27/24 13:32 BP 165/91 H 02/27/24 13:32 Pulse Ox 99 02/27/24 13:32 O2 Del Method Room Air 02/27/24 13:32 O2 Flow Rate 2 02/27/24 11:36 Oxygen Flow Rate 2 02/27/24 11:12 BMI result Body Mass Index 19.4 Const: General: cooperative and no acute distress O rientation/consciousness: oriented to place HEENT: Head: Yes normal to inspection and Yes atraumatic Ears: hearing grossly normal bilaterally General nose exam: Normal external nose present Face and sinus: Yes normal facial exam Eyes: General: appearance normal, both eyes and all related structures EOM: EOMs intact bilaterally Neck: Neck: Yes normal visual inspection and Yes no meningeal signs Resp: Other: Coarse lung sounds throughout Effort & Inspection: normal respiratory effort and no respiratory distress Auscultation: diminished lung sounds bilateral in the lower lung torres Cardio: Rate: regular rate Heart sounds: S1 normal heart sound present and S2 normal heart sound present GI: Inspection: Yes normal to inspection Palpation (GI): Soft to palpation, nontender, no guarding and not rigid : General: Yes no CVA tenderness Back/Spine/Pelvis: Back: no CVA tenderness Skin: Rashes: no rashes Wounds: no wounds Neuro: General: oriented to place, tone normal, moves all extremities, no meningeal signs and no focal motor deficits Cranial nerves: Yes CN's II-XII intact bilaterally Extrem: General: Yes normal to inspection and Yes no pedal edema Course Course Course Narrative: -1304--no leukocytosis. H&H at patient's baseline. Troponin 10.8 > will obtain 3 hour repeat. Labs otherwise reassuring -UA infected > IV Rocephin given XR chest 1V IMPRESSION: No acute intrathoracic disease. Postsurgical changes right thorax. -1535--patient is satting 99% on her baseline 2L NC > drops to mid-70's on RA > lungs with better air movement after 1 DuoNeb, still diminished throughout. Will order additional DuoNeb and IV Solu-Medrol. CTA still pending -1630--ED care transferred to [facility] pending CTA and repeat troponin Medications Administered Generic Name Dose Route Start Last Admin Trade Name Freq PRN Reason Stop Dose Admin Ceftriaxone Sodium 1 gm/ 50 mls @ 100 mls/hr 02/27/24 13:15 02/27/24 15:21 Sodium Chloride IV Infused Q12H ENE Infusion Discontinued Medications Generic Name Dose Route Start Last Admin Trade Name Freq PRN Reason Stop Dose Admin Albuterol/Ipratropium 3 ml 02/27/24 13:24 02/27/24 13:28 Albuterol/Iprat 2.5/0.5mg 3 Ml Ampul.Neb INHALE 02/27/24 13:25 3 ml ONCE ONE Administration Iohexol 100 ml 02/27/24 13:26 02/27/24 13:26 Iohexol 350 Mg/Ml 100 Ml Infus..Btl IV 02/27/24 13:27 65 ml ONCE ONE Administration Medical Decision Making Medical Decision Making MDM Narrative: 68-year-old female with a past medical history of COPD on home O2 as needed, cervical radiculopathy, bronchiectasis, sleep apnea, renal cell carcinoma s/p left nephrectomy in 01/2020 currently on chemotherapy, HTN, GERD, presenting to the ED via EMS for hypoxia noted at home, anorexia, and increased lethargy/weakness. On exam satting 99% on 2L NC, A&O x1 (baseline confusion per ), diminished & coarse lung sounds, talking in complete sentences, no respiratory distress, no pedal edema. Concern for viral illness vs COPD exacerbation vs pneumonia vs PE vs failure to thrive. Low suspicion for CVA/acute encephalopathy. Lower suspicion for ACS Plan: EKG, labs, UA, CXR, CT AP, ED bronch protocol, re-evaluate Please refer to course for remaining clinical decision making, interpretation of labs/imaging results, and discussions with consultants and/or family members. Differential Diagnosis Differential Diagnoses: The differential diagnosis associated with the presentation includes As above Admission/Observation Consideration of admission/observation: Escalation of care including admission/observation considered Lab Data MDM Lab Attestation statement: I reviewed the patient's lab results. 02/27/24 11:57 02/27/24 11:57 Labs: Lab Results 02/27/24 02/27/24 02/27/24 Range/Units 11:57 11:59 12:10 WBC 5.9 (4.8-10.8) X10*3/uL RBC 6.15 H (4.20-5.50) X10*6/uL Hgb 15.1 (12.0-16.0) g/dl Hct 49.3 H (37.0-47.0) % MCV 80.2 (80.0-98.0) fL MCH 24.6 L (27.0-33.0) pg MCHC 30.6 L (31.0-35.0) g/dl RDW 20.6 H (11.0-16.0) % Plt Count 204 (160-400) X10*3/uL MPV 9.4 (9.4-12.3) fL Immature Gran % (Auto) 0.5 H (0.0-0.4) % Neut % (Auto) 79.6 H (45-73) % Lymph % (Auto) 6.6 L (20-40) % [place] % (Auto) 12.6 H (2-11) % Eos % (Auto) 0.2 (0-4) % Baso % (Auto) 0.5 (0-2) % Lymph # (Auto) 0.4 L (1.2-4.9) X10*3/uL [place] # (Auto) 0.8 (0.1-1.2) X10*3/uL Eos # (Auto) 0.0 (0.0-0.4) X10*3/uL Baso # (Auto) 0.0 (0.0-0.2) X10*3/uL Abs Immat Gran (auto) 0.03 (0.00-0.03) X10*3/uL Absolute Neuts (auto) 4.7 (2.0-8.3) x10*3/uL Absolute Nucleated RBC 0.000 (0.0-0.012) X10*3/uL Nucleated RBC % (auto) 0.0 (0.0-0.2) /100WBC Sodium 138 (135-145) mmol/L Potassium 4.4 (3.3-5.1) mmol/L Chloride 94 L (96-108) mmol/L Carbon Dioxide 34 H (22-29) mmol/L Anion Gap 14 (12-20) BUN 11 (9-16) mg/dL Creatinine 0.72 (0.5-1.4) mg/dL Estim Creat Clear Calc 59.3 Estimated GFR > 60 Random Glucose 82 (60-115) mg/dL Calcium 9.0 (8.4-10.2) mg/dL Magnesium 1.6 (1.6-2.6) mg/dL Total Bilirubin 0.6 (0.0-1.0) mg/dL Direct Bilirubin 0.3 (0.0-0.5) mg/dL AST 23 (5-31) U/L ALT 12 (0-31) U/L Alkaline Phosphatase 113 (39-117) U/L Troponin I High Sens 10.8 (<3.5-17.0) ng/L Total Protein 6.6 (6.5-8.0) g/dL Albumin 2.9 L (3.5-5.0) g/dL Urine Color Dark Yellow Urine Appearance Turbid Urine pH 6.5 (5.0-9.0) Ur Specific [place] 1.020 (1.005-1.025) Urine Protein 300 (3+) H (Neg-Trace) mg/dL Urine Glucose (UA) Negative (Negative) mg/dL Urine Ketones Trace (Negative) mg/dL Urine Blood Negative (Negative) Urine Nitrite Positive H (Negative) Ur Leukocyte Esterase Moderate (2+) H (Negative) Urine RBC 0-2 (0-2) /HPF Urine WBC >50 H (0-5) /HPF Ur Squamous Epith Cells 0-2 (0-2) /HPF Urine Bacteria 4+ (None Seen) Hyaline Casts 0-2 (0-2) /LPF Influenza Type A (PCR) NEGATIVE (Negative) Influenza Type B (PCR) NEGATIVE (Negative) RSV RNA Qual (PCR) NEGATIVE (Negative) SARS-CoV-2 RNA (RT-PCR) NEGATIVE (Negative) Independent Interpretation I performed an independent interpretation of an: EKG (My interpretation EKG normal sinus rhythm rate of 96. MI interval 142. QTC 419. No STEMI), Plain X- Ray and CT Scan Radiology Impression Discussion of test interpretation with radiology: I have reviewed the radiologist's reading. Independent Historian Clinical information obtained from an independent historian. History obtained from or confirmed by: Spouse and EMS External Record Review External record reviewed: Inpatient record, Office record, Outpatient record, Prior outpatient labs, Prior outpatient radiology, Primary care record and Outside ED record Tests considered The following testing was considered but not selected: As above Prescription Management I considered prescription management with: Pain Medication and Antibiotic Chronic Conditions Patient?s care impacted by: Cancer Critical Care Time Critical Care Time Critical Care Time: Yes Total Critical Care Time: 40 Attestation: I have personally provided critical care time exclusive of time spent on separately billable procedures. Time includes review of lab data, radiology results, discussion with consultants, and monitoring for potential decompensation. Intervention performed as documented. Discharge Plan Discharge Clinical Impression: Acute UTI, Weakness COPD (chronic obstructive pulmonary disease) Qualifiers: COPD type: unspecified COPD Qualified Code(s): J44.9 - Chronic obstructive pulmonary disease, unspecified Patient Disposition: Still a Patient Prescriptions: No Action betamethasone dipropionate 0.05 % cream 1 appl topical BID PRN (Reason: skin irritation) Qty: 45 0RF gabapentin 400 mg capsule 400 mg PO TID 90 Days Qty: 270 1RF cholecalciferol (vitamin D3) 50 mcg (2,000 unit) capsule 50 mcg PO DAILY 90 Days Qty: 90 3RF oxycodone-acetaminophen 5-325 mg tablet 1 tab PO Q8H PRN (Reason: low back pain) 7 Days Qty: 21 0RF senna 8.6 mg capsule 8.6 mg PO BID PRN (Reason: constipation) Qty: 60 5RF clonazepam 0.5 mg tablet 0.5 mg PO TID PRN (Reason: anxiety) 30 Days Qty: 90 0RF pantoprazole 40 mg tablet,delayed release (DR/EC) 40 mg PO DAILY Qty: 90 1RF nifedipine 30 mg tablet extended release 30 mg PO DAILY Qty: 90 3RF nystatin 100,000 unit/mL suspension 10 ml buccal TID PRN (Reason: thrush) Rx Instructions: swish 1/2 of dose in each side of the mouth for up to 5 minutes, then spit out the medicine atorvastatin 10 mg tablet 10 mg PO DAILY famotidine 40 mg tablet 40 mg PO BEDTIME hydrochlorothiazide 25 mg tablet 25 mg PO DAILY Incruse Ellipta 62.5 mcg/actuation blister with device 1 inh inhalation DAILY bupropion HCl 150 mg tablet extended release 24 hr 150 mg PO DAILY lenvatinib 20 mg/day (10 mg x 2) Capsule 20 mg PO DAILY Qty: 60 4RF levothyroxine [Synthroid] 25 mcg Tablet 25 mcg PO DAILY Qty: 30 3RF Magic Mouthwash Diphen/Lido/Antacid 1:1:1 240 mL Suspension 10 ml PO QID Qty: 240 4RF Rx Instructions: Lidocaine Viscous 2 % 80mL; diphenhydramine 12.5 mg/5 mL 80mL; aluminum-mag hydrox-simeth [id number]/5mL 80mL triamcinolone acetonide 0.1 % Paste 1 appl DENTAL BID Qty: 30 2RF Rx Instructions: use after food and/or drink and/or oral hygiene lidocaine HCl [Lidocaine Viscous] 2 % Solution 1 appl MUCOUS MEMBRANE QID Qty: 300 3RF ondansetron 8 mg tablet,disintegrating 8 mg PO Q8H PRN (Reason: Nausea And Vomiting) fluticasone propionate 220 mcg/actuation HFA aerosol inhaler 1 puff INHALATION BID amitriptyline 75 mg tablet 75 mg PO BEDTIME mometasone 0.1 % cream 1 appl topical BID PRN (Reason: Rash) benzonatate 100 mg Capsule 100 mg PO TID PRN (Reason: Cough) Qty: 9 0RF nitrofurantoin monohyd/m-cryst [Macrobid] 100 mg capsule 100 mg PO Q12H 7 Days Qty: 14 0RF Rx Instructions: must administer with a meal/food albuterol sulfate 90 mcg/actuation HFA aerosol inhaler 2 puff inhalation QID PRN (Reason: shortness of breath or wheezing) Qty: 8.5 6RF ipratropium-albuterol 0.5 mg-3 mg(2.5 mg base)/3 mL solution for nebulization 3 ml inhalation Q6H PRN (Reason: shortness of breath or wheezing) 30 Days Qty: 180 6RF Referrals: Dominic Lin MD [Primary Care Provider] - 2 days Print Language: Tongan
--- NOTE | 2024-02-27 11:34 | PC.NURSE ---
awake and alert. weak appearing. supplemental O2, resp even and unlabored. speaking in full clear sentences. abd soft. skin wcd. transferred from EMS stretcher without issue.
--- NOTE | 2024-02-27 11:35 | ECG_ITS ---
Test Reason : WEAKNESS Blood Pressure : / mmHG Vent. Rate : 096 BPM Atrial Rate : 096 BPM P-R Int : 142 ms QRS Dur : 080 ms QT Int : 332 ms P-R-T Axes : 067 022 077 degrees QTc Int : 419 ms Normal sinus rhythm Left atrial enlargement Borderline ECG When compared with ECG of 17-FEB-2024 17:46, No significant change was found Referred By: Dee Dee Thomas Electronically Signed By:EVY JIMENEZ
[2024-02-27 12:03] LABS: MANUAL DIFF FLAG NO
[2024-02-27 12:04] LABS: Basophils Percent Auto 0.5 % (0-2); Eosinophils Percent Auto 0.2 % (0-4); Hematocrit 49.3 % (37.0-47.0); Hemoglobin 15.1 g/dl (12.0-16.0); Imm Gran Abs Auto 0.03 X10*3/uL (0.00-0.03); Imm Gran Pct Auto 0.5 % (0.0-0.4); Lymphocytes Absolute Auto 0.4 X10*3/uL (1.2-4.9); Lymphocytes Percent Auto 6.6 % (20-40); Mean Corpuscular HGB Conc 30.6 g/dl (31.0-35.0); Mean Corpuscular Hemoglobin 24.6 pg (27.0-33.0); Mean Corpuscular Volume 80.2 fL (80.0-98.0); Mean Platelet Volume 9.4 fL (9.4-12.3); Monocytes Absolute Auto 0.8 X10*3/uL (0.1-1.2); Monocytes Percent Auto 12.6 % (2-11); Neutrophils Absolute Auto 4.7 x10*3/uL (2.0-8.3); Neutrophils Percent Auto 79.6 % (45-73); Platelet Count 204 X10*3/uL (160-400); Red Blood Count 6.15 X10*6/uL (4.20-5.50); Red Cell Distribution Width 20.6 % (11.0-16.0); White Blood Count 5.9 X10*3/uL (4.8-10.8)
[2024-02-27 12:24] LABS: Troponin-I High Sensitivity 10.8 ng/L (<3.5-17.0)
[2024-02-27 12:25] LABS: Appearance Urine Turbid; Color Urine Dark Yellow; Glucose Urine UA Negative (Negative); Leukocyte Esterase Urine Moderate (2+) (Negative); Nitrite Urine Positive (Negative); PH 6.5 (5.0-9.0); UMIC TRIGGER UACC YES; Urine Blood Negative (Negative); Urine Ketones Trace mg/dL (Negative); Urine Protein 300 (3+) mg/dL (Neg-Trace)
[2024-02-27 12:27] LABS: Alanine Aminotransferase 12 U/L (0-31); Albumin Level 2.9 g/dL (3.5-5.0); Alkaline Phosphatase 113 U/L (39-117); Anion Gap 14 (12-20); Aspartate Amino Transferase 23 U/L (5-31); Bilirubin Direct 0.3 mg/dL (0.0-0.5); Bilirubin Total 0.6 mg/dL (0.0-1.0); Blood Urea Nitrogen 11 mg/dL (9-16); Carbon Dioxide 34 mmol/L (22-29); Chloride 94 mmol/L (96-108); Creatinine Clr Calc Pharmacy 59.3; Estimated Glomerular Filt Rate > 60; Glucose Random 82 mg/dL (60-115); Magnesium 1.6 mg/dL (1.6-2.6); Potassium 4.4 mmol/L (3.3-5.1); Sodium 138 mmol/L (135-145); Total Protein 6.6 g/dL (6.5-8.0)
[2024-02-27 12:39] LABS: Bacteria Urine 4+ (None Seen); Hyaline Casts Urine 0-2 /LPF (0-2); RBC Urine 0-2 /HPF (0-2); Squamous Epithelial Cell Urine 0-2 /HPF (0-2); UACC Culture Trigger YES; WBC Urine >50 /HPF (0-5)
[2024-02-27 12:56] LABS: Influenza A PCR NEGATIVE (Negative); Influenza B PCR NEGATIVE (Negative); Resp Syncy Virus RNA Qual PCR NEGATIVE (Negative); SARS COV2 PCR INHOUSE NEGATIVE (Negative)
[2024-02-27] MEDS: iohexoL 350 MG/ML 100 ML INFUS..BTL IV (13:26)
[2024-02-27] MEDS: Albuterol/Iprat 2.5/0.5MG 3 ML AMPUL.NEB INHALE ×2 (13:28→16:07)
[2024-02-27] MEDS: cefTRIAXone sodium 1 GM in 0.9 % Sodium Chloride 50 ML IV (13:42)
[2024-02-27] MEDS: methylPREDNISolone Sod Succ 125 MG/2 ML VIAL IVPUSH (16:27)
[2024-02-27 16:35] LABS: Troponin-I High Sensitivity 12.1 ng/L (<3.5-17.0)
--- NOTE | 2024-02-27 18:27 | PC.NURSE ---
Per family/patient request diet to be changed to mechanical soft d/t mouth pain. Diet changed, dietary called for new tray
--- NOTE | 2024-02-27 18:37 | PM.IMHP ---
History of Present Illness Date of Service: 02/27/24 Attending physician on admission: Dayami Falk Chief Complaint: sob, weakness, cough 68-year-old female with a PMH significant for?renal cell carcinoma (s/p left nephrectomy in 01/2020) with metastasis to the liver and lungs currently on chemotherapy (oral lenvatinib, started 11/07/2023), COPD on prn home O2, bronchiectasis, HTN, HLD, and restless leg syndrome presented to the ED earlier today for evaluation of hypoxia to 54% at home as reported by her . She has also had nonproductive cough, anorexia, lethargy/weakness ongoing for several days. She has been requiring constant use of her home O2. She has also been unsteady with multiple mechanical falls. Reports lightheadedness, sob, and palpitations. No fevers, rigors, abd pain, n/v/d, chest pain, syncope. On arrival, pt has mild tachycardia in the 90s and mild tachypnea. No leukocytosis pr significnat anemia. Renal function and electrolyte levels normal except for chloride 94, CO2 34 which is consistent with her baseline. Lactic acid 1.9. Initial troponin 10.8, repeat 12.1. Urinalysis with 2+ leukocytes, positive nitrites, negative blood, positive urinary sediment, 4+ bacteria. Negative for influenza, COVID-19, RSV. CT of the chest shows small volume occlusive PE in the left lingular segmental pulmonary artery as well as nodular opacities seen bilaterally predominantly in the dependent portions of the pulmonary lobes increased from prior concerning for infectious versus inflammatory process versus aspiration. In the ED, has received Rocephin, Zithromax, methylprednisolone, and DuoNebs. Review of Systems Review of Systems: Yes all other systems are reviewed and are negative [facility] Medical History Liver lesion Right lower lobe lung mass Post-operative nausea and vomiting Dry eye COVID-19 COPD (chronic obstructive pulmonary disease) Malignant neoplasm of left kidney Vitamin D deficiency Depression Primary osteoarthritis of knees, bilateral Pure hypercholesterolemia Elevated C-reactive protein (CRP) Palpitations Constipation Obstructive sleep apnea Anxiety Benign essential hypertension Renal cell carcinoma of left kidney Oral thrush Lumbar degenerative disc disease Status post fall Right foot pain Chronic allergic bronchitis GERD (gastroesophageal reflux disease) Family History Father Hypertension CVD (cardiovascular disease) Cancer Mother Hypertension Substance abuse Other Mental health problem Surgical History Metastatic renal cell carcinoma to lung H/O kidney removal Hx of oral surgery Hx of tonsillectomy Pulmonary nodule 1 cm or greater in diameter History of nephrectomy Social History Household Members: Spouse and Family Household Members Other:: and brother and sister Housing: House Are you a primary child care director to a significant other at home: No Do you presently have visiting nurse or other home services: No Alcohol intake: never Comment: COUNTS CORRECT Patient Tobacco Use Status: Current everyday Tobacco user Tobacco use type: Cigarette Cigarette Packs Per Day: 1.5 Years Smoked: 30 Smoked in Last 30 Days: No e-Cigarette/Vaping Use: Currently Using Second Hand Smoke Exposure: No Use of substances other than those prescribed or required for medical reasons: No Currently Displaying Signs/Symptoms of Drug Intoxication Withdrawal: No Any prior treatment program specific to substance use: No Have you been hit, kicked, punched, or otherwise hurt by someone within the past year? If so, by whom?: No Do you feel safe in your current relationship?: Yes Is there a partner from a previous relationship who is making you feel unsafe now?: No Are you made to feel afraid or neglected: No Advance Directives: Yes Advance Directives on File: Yes Advance Directives Date on File: 11/29/23 Do you have a plan to hurt others: No Plan Recently lost weight without trying: Yes How much weight loss: Unsure Eating poorly because of decreased appetite: Yes Nutrition screen score: 5 Nutrition Risks: No Nutritional Risk Patient : No : No Poor oral hygiene: No service: No Current occupational status: disabled Cognitive needs: No Hearing needs: No Vision needs: No Meds Allergies Allergy/AdvReac Type Severity Reaction Status Date / Time Sulfa (Sulfonamide Allergy Severe ANAPHYLAXIS Verified 02/27/24 11:15 Antibiotics) Penicillins Allergy Intermediate RASH Verified 02/27/24 11:15 aspirin [ASA] AdvReac Severe severe Verified 02/27/24 11:15 stomach pain NSAIDS (Non-Steroidal AdvReac Severe severe Verified 02/27/24 11:15 Anti-Inflamma stomach pain codeine [Codeine] AdvReac Intermediate NAUSEA & Verified 02/27/24 11:15 VOMITING Active Medications: Current Medications Enoxaparin Sodium (Enoxaparin Sodium 80 Mg/0.8 Ml Syringe) 75 mg SUBCUT Q24H ENE Ceftriaxone Sodium 1 gm/ (Sodium Chloride) 50 mls @ 100 mls/hr IV Q12H ENE Last Infusion: 02/27/24 15:21 Dose: Infused Azithromycin 500 mg/ Sodium (Chloride) 250 mls @ 125 mls/hr IV ONCE ONE Stop: 02/27/24 19:30 Home Medications ?Medication ?Instructions ?Recorded ?Confirmed ?Last Taken ?Type atorvastatin 10 mg tablet 10 mg PO DAILY 09/28/23 02/27/24 02/26/24 History nystatin 100,000 unit/mL oral 10 ml buccal TID PRN thrush 09/28/23 02/27/24 02/26/24 History suspension umeclidinium 62.5 mcg/actuation 1 inh inhalation DAILY 09/28/23 02/27/24 02/26/24 History blister powder for inhalation (Incruse Ellipta) bupropion HCl 150 mg 24 hr tablet, 150 mg PO DAILY 10/06/23 02/27/24 02/26/24 History extended release amitriptyline 75 mg tablet 75 mg PO BEDTIME 11/12/23 02/27/24 02/26/24 History gabapentin 400 mg capsule 400 mg PO TID PRN Pain 02/27/24 02/27/24 02/26/24 History lenvatinib 20 mg/day (10 mg x 2) 20 mg PO DAILY@1400 02/27/24 02/27/24 02/26/24 History capsule Physical Exam Vital Signs and Narrative: Vital Signs: Last Vital Signs Temp 98.0 F 02/27/24 16:13 Pulse 100 02/27/24 16:13 Resp 20 02/27/24 16:13 BP 149/85 H 02/27/24 16:13 Pulse Ox 100 02/27/24 16:13 O2 Del Method Room Air 02/27/24 16:13 O2 Flow Rate 2 02/27/24 11:36 Oxygen Flow Rate 2 02/27/24 11:12 BMI result Body Mass Index 19.4 Constitutional - Awake and Alert, No apparent distress Eyes - PERRLA, EOMI Cardiovascular - S1S2, RRR, No edema Respiratory - Normal lung expansion, Normal respiratory effort, No respiratory distress on 2 L supplemental O2, diminished lung sounds bilaterally but no wheezes, rhonchi, rales Gastrointestinal - NT / ND; +BS; No rebound or guarding Extremities - no calf tenderness bilaterally, no swelling Skin - Warm/Dry Neurological - Alert & oriented x3 Psychological - Appropriate affect Results Labs 02/28/24 04:21 02/28/24 04:21 Labs: Laboratory Results - last 24 hr 02/27/24 02/27/24 02/27/24 11:57 11:59 12:10 MCV 80.2 MCH 24.6 L MCHC 30.6 L RDW 20.6 H Plt Count 204 MPV 9.4 Immature Gran % (Auto) 0.5 H Neut % (Auto) 79.6 H Lymph % (Auto) 6.6 L [place] % (Auto) 12.6 H Eos % (Auto) 0.2 Baso % (Auto) 0.5 Lymph # (Auto) 0.4 L [place] # (Auto) 0.8 Eos # (Auto) 0.0 Baso # (Auto) 0.0 Abs Immat Gran (auto) 0.03 Absolute Neuts (auto) 4.7 Absolute Nucleated RBC 0.000 Nucleated RBC % (auto) 0.0 Anion Gap 14 Estim Creat Clear Calc 59.3 Estimated GFR > 60 Random Glucose 82 Calcium 9.0 Magnesium 1.6 Total Bilirubin 0.6 Direct Bilirubin 0.3 AST 23 ALT 12 Alkaline Phosphatase 113 Troponin I High Sens 10.8 Total Protein 6.6 Albumin 2.9 L Urine Color Dark Yellow Urine Appearance Turbid Urine pH 6.5 Ur Specific [place] 1.020 Urine Protein 300 (3+) H Urine Glucose (UA) Negative Urine Ketones Trace Urine Blood Negative Urine Nitrite Positive H Ur Leukocyte Esterase Moderate (2+) H Urine RBC 0-2 Urine WBC >50 H Ur Squamous Epith Cells 0-2 Urine Bacteria 4+ Hyaline Casts 0-2 Influenza Type A (PCR) NEGATIVE Influenza Type B (PCR) NEGATIVE RSV RNA Qual (PCR) NEGATIVE SARS-CoV-2 RNA (RT-PCR) NEGATIVE 02/27/24 16:03 MCV MCH MCHC RDW Plt Count MPV Immature Gran % (Auto) Neut % (Auto) Lymph % (Auto) [place] % (Auto) Eos % (Auto) Baso % (Auto) Lymph # (Auto) [place] # (Auto) Eos # (Auto) Baso # (Auto) Abs Immat Gran (auto) Absolute Neuts (auto) Absolute Nucleated RBC Nucleated RBC % (auto) Anion Gap Estim Creat Clear Calc Estimated GFR Random Glucose Calcium Magnesium Total Bilirubin Direct Bilirubin AST ALT Alkaline Phosphatase Troponin I High Sens 12.1 Total Protein Albumin Urine Color Urine Appearance Urine pH Ur Specific [place] Urine Protein Urine Glucose (UA) Urine Ketones Urine Blood Urine Nitrite Ur Leukocyte Esterase Urine RBC Urine WBC Ur Squamous Epith Cells Urine Bacteria Hyaline Casts Influenza Type A (PCR) Influenza Type B (PCR) RSV RNA Qual (PCR) SARS-CoV-2 RNA (RT-PCR) Imaging Radiologist's Impressions: Impressions Chest X-Ray 02/27/24 12:14 IMPRESSION: No acute intrathoracic disease. Postsurgical changes right thorax. Chest CTA 02/27/24 13:27 IMPRESSION: 1. There is small volume occlusive pulmonary embolism in the left lingular subsegmental pulmonary artery. 2. Nodular opacities are seen bilaterally predominantly in the dependent portions of the pulmonary lobes, increased from prior. This could represent infectious/inflammatory process versus aspiration. 3. Right hepatic hypodense lesion with nodular enhancement redemonstrated, concerning for malignancy as seen on MR 10/24/2023. VTE: positive. These results were discussed with OMAIRA Samson by telephone on 02/27/2024 at 5:23 PM and it was ascertained that the content of the report was understood at the time of direct communication. Assessment and Plan (1) Pulmonary embolism: Status: Acute (2) Weakness: Status: Acute (3) Acute UTI: Status: Acute (4) Acute and chronic respiratory failure: Status: Acute (5) Pneumonia: Qualifiers: Laterality: bilateral Lung location: lower lobe of lung Pneumonia type: due to unspecified organism Qualified Code(s): J18.9 - Pneumonia, unspecified organism Status: Inactive (6) Multiple falls: Status: Inactive Plan 68-year-old female with a PMH significant for?renal cell carcinoma (s/p left nephrectomy in 01/2020) with metastasis to the liver and lungs currently on chemotherapy (oral lenvatinib, started 11/07/2023), COPD on prn home O2, bronchiectasis, HTN, HLD, and restless leg syndrome admitted for further management of occlussive leftsided pe and pneumonia with acute on chronic hypoxemic respiratory failure # acute on chronic hypoxemic respiratory failure secondary to PE and pneumonia -continue supplemental O2 per protocol, wean as tolerated # acute pulmonary embolism -CTA chest shows small volume occlusive pulmonary embolism in the left lingular subsegmental pulmonary artery -75mg sub cut lovenox daily -trops flat -supplemental O2 as above -heme/onc consult -admit to med/tele # acute bilateral lower lobe pneumonia -patient is symptomatic with cough and lethargy -CTA chest shows nodular opacities seen bilaterally predominantly in the dependent portions of the pulmonary lobes, increased from prior possibly representing infectious versus inflammatory process versus aspiration -patient denies any dysphagia, family confirms no aspiration observed. Nursing bedside swallow evaluation. 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 [facility]1 feeds and aspiration precautions -IV vancomycin and cefepime (initiated 02/26) -strep pneumo antigen, Legionella antigen, sputum culture pending. Will also check MRSA nasal swab -guaifenesin p.r.n. -supplemental O2 as above # acute UTI -IV antibiotics as above -0 follow CBC, cultures # sirs criteria -tachycardia due to pulmonary embolism, no sepsis/severe sepsis # multiple falls/general weakness -PT evaluation # renal cell carcinoma with metastasis to liver and lungs -currently on oral lenvatinib, hold, resume at discretion of Oncology -oncology consult #COPD -no acute exacerbation, continue home inhalers/nebs # hypothyroidism -levothyroxine # hypertension -continue nifedipine, hydrochlorothiazide # unspecified polyneuropathy/RLS -continue amitriptyline, oxycodone # hyperlipidemia -statin DVT prophylaxis-therapeutic Lovenox Full code Patient requires inpatient stay at least 2 midnights for management of occlusive left-sided pulmonary embolism and pneumonia with acute on chronic hypoxemic respiratory failure requiring supplemental O2, therapeutic Lovenox, IV antibiotics, and close monitoring with expert consultation Quality Stroke Does the patient have a stroke diagnosis?: No VTE Prior VTE?: No VTE Risk Level:: Medical - moderate - high VTE Device Contraindication: Treatment Not Indicated VTE Drug Contraindication: N/A - Med Ordered
[2024-02-27 18:38] LABS: Hemoglobin 15.1 g/dl (12.0-16.0); Mean Corpuscular HGB Conc 30.8 g/dl (31.0-35.0); Mean Corpuscular Hemoglobin 24.4 pg (27.0-33.0); Mean Platelet Volume 9.5 fL (9.4-12.3); Platelet Count 194 X10*3/uL (160-400); Red Cell Distribution Width 20.8 % (11.0-16.0)
[2024-02-27 18:44] LABS: INTERNATIONAL NORM RATIO 1.2 (0.9-1.1); Prothrombin Time 14.6 SEC (11.1-13.3)
[2024-02-27] MEDS: Azithromycin 500 MG in 0.9 % Sodium Chloride 250 ML 125 MG IV (18:45)
[2024-02-27 18:46] LABS: Lactic Acid 1.9 mmol/L (0.5-2.0); Partial Thromboplastin Time 34.3 SEC (26.0-36.8)
--- NOTE | 2024-02-27 19:23 | MHC.CM.PN ---
Addendum entered by Jerilyn Qureshi 02/27/24 19:28: IMM 02/26. CM met with patient, HCP#1/ Kwaku Stewart and HCP #2/daughter Vanna Galloway at bedside. Reviewed IMM. Original given to patient, with copy to medical records. Pt. lives with her . Has no home services. Has home oxygen through [employer] and has a walker, which she does not consistantly use. HCP is on file. Pt has metastatic renal cancer to liver and lungs. She has ongoing chemotherapy. No discussion regarding Hospice at this time. Reviewed with patient and family options for PT evaluation, STR, home PT and more care at home from [facility]. Suggested the family call [facility] care aide regarding additional help in the home. D/C plan: STR and increased help in the home. No referrals placed at this time pending hospital course. Patient and family given CM contact card. Aware that another CM will work with them when she is admitted to the floor. CM will follow for discharge planning. Original Note: CM met with daughter at her request. Daughter has concerns regarding mother' medical condition and if her brother should come from [place]. CM advised daughter, Vanna, to speak with her mother's providers and suggested she speak to her brother regarding the facts of how her mother is doing and her recent and ongoing diagnosis, and let her brother decide if he should come. Enc. daughter to speak with providers. CM reviewed PT consult and possible STR. Daughter is concerned that her step-father cannot care for her at home. Discussed having more help in the home, and calling [facility] for assistance.
--- NOTE | 2024-02-27 19:26 | PHA.MEDREC ---
Pharmacy Consult ? Medication Reconciliation Pharmacy has completed the medication reconciliation. Spoke to patient and + daughter at bedside to confirm medication list. Patient said she takes gabapentin only as needed.
[2024-02-27] MEDS: vancomycin HCL 1,500 MG in 0.9 % Sodium Chloride 500 ML 333.33 MG IV (19:35)
--- NOTE | 2024-02-27 19:40 | PC.NURSE ---
this rn assumed care of pt, pt resting in stretcher, no acute distress noted. antibiotics administered per mar at this time.
[2024-02-27] MEDS: Enoxaparin Sodium 80 MG/0.8 ML SYRINGE 75 MG SUBCUT (20:04)
[2024-02-27] MEDS: cefEPime HCl 2 GM in 0.9 % Sodium Chloride 50 ML IV (21:02)
[2024-02-28 03:36] VITALS: BP 163/104; PULSE 79; RESP 19; TEMP 36.5; O2SAT 99
--- NOTE | 2024-02-28 03:56 | PC.NURSE ---
pt sleeping, respirations even and unlabored, no acute distress noted. plan of care continues. per pt daughter pt takes medications with water.
[2024-02-28 05:28] LABS: Basophils Percent Auto 0.2 % (0-2); Hematocrit 47.1 % (37.0-47.0); Hemoglobin 14.5 g/dl (12.0-16.0); Imm Gran Abs Auto 0.02 X10*3/uL (0.00-0.03); Imm Gran Pct Auto 0.5 % (0.0-0.4); Lymphocytes Absolute Auto 0.3 X10*3/uL (1.2-4.9); Lymphocytes Percent Auto 6.7 % (20-40); MANUAL DIFF FLAG SCAN; Mean Corpuscular HGB Conc 30.8 g/dl (31.0-35.0); Mean Corpuscular Hemoglobin 24.2 pg (27.0-33.0); Mean Corpuscular Volume 78.5 fL (80.0-98.0); Mean Platelet Volume 10.3 fL (9.4-12.3); Monocytes Absolute Auto 0.1 X10*3/uL (0.1-1.2); Monocytes Percent Auto 1.5 % (2-11); Neutrophils Absolute Auto 3.7 x10*3/uL (2.0-8.3); Neutrophils Percent Auto 91.1 % (45-73); Platelet Count 217 X10*3/uL (160-400); Red Cell Distribution Width 20.8 % (11.0-16.0); SCAN SMEAR FLAG 1
[2024-02-28 05:43] LABS: Anion Gap 15 (12-20); Blood Urea Nitrogen 12 mg/dL (9-16); Calcium 8.5 mg/dL (8.4-10.2); Carbon Dioxide 29 mmol/L (22-29); Chloride 101 mmol/L (96-108); Creatinine Clr Calc Pharmacy 71.2; Estimated Glomerular Filt Rate > 60; Glucose Random 127 mg/dL (60-115); Potassium 4.2 mmol/L (3.3-5.1); Sodium 141 mmol/L (135-145)
[2024-02-28 05:59] LABS: SLIDE REVIEW VERIFIED
[2024-02-28 06:17] VITALS: BP 157/98; PULSE 81; RESP 12; TEMP 37.1; O2SAT 99
[2024-02-28] MEDS: Levothyroxine Sodium 25 MCG TABLET PO (06:18)
[2024-02-28] MEDS: Omeprazole 20 MG CAPSULE.DR PO (06:20)
--- NOTE | 2024-02-28 06:25 | PC.NURSE ---
pt medicated per mar, tolerated well with water. pt needed little redirection to take pills. daughter at bedside given recliner.
--- NOTE | 2024-02-28 08:01 | P.CNHO_ITS ---
Subjective - Subjective Chief complaint: Shortness of breath Patient: known to practice within the last 3 years Consult date: 02/28/24 Primary Care Provider: Dominic Lin MD Medical Summary: DIAGNOSIS: METASTATIC RENAL CELL CARCINOMA. CURRENT THERAPY: Started on pembrolizumab and lenvatinib on 11/07. HPI - Consult Narrative Reason for consult: Pulmonary embolism/pneumonia in patient with metastatic RCC Narrative: Elina Stewart is a 68 year old female who has a patient of Dr. Weber for metastatic renal cell carcinoma, currently receiving treatment who presented to ED with severe hypoxemia. Patient is a poor historian, according to chart review she was complaining of cough, lethargy and shortness of breath for several days. She has a history of COPD, she is on home oxygen 2 L, history of bronchiectasis and recurrent pneumonia. She has had multiple falls because of lightheadedness. According to the daughter, patient has increasingly forgetful and there is concern for dementia. Patient was found to be hypoxemic, CT angiogram revealed small volume occlusive pulmonary embolism in the left lingular segmental pulmonary artery and nodular opacities seen bilaterally concerning for infectious versus inflammatory process. She was started on steroids and IV antibiotics. She says she feels better. She has been taking lenvatinib orally at home. Review of Systems - Constitutional Reports lack of energy, Reports malaise, Reports weight loss - ENT Reports dizziness, Denies vertigo - Cardiovascular Denies chest pain, Denies fast heart rate - Respiratory Reports cough, Reports dyspnea, Denies pain on inspiration - Gastrointestinal Denies abdominal pain PMFSH Medical History: Medical History (Last Reviewed 02/28/24 @ 11:01 by Jalyn Ellis RN) Anxiety Benign essential hypertension Chronic allergic bronchitis Constipation COPD (chronic obstructive pulmonary disease) COVID-19 Depression Dry eye Elevated C-reactive protein (CRP) GERD (gastroesophageal reflux disease) Liver lesion Lumbar degenerative disc disease Malignant neoplasm of left kidney Obstructive sleep apnea Oral thrush Palpitations Post-operative nausea and vomiting Primary osteoarthritis of knees, bilateral Pure hypercholesterolemia Renal cell carcinoma of left kidney Right foot pain Right lower lobe lung mass Status post fall Vitamin D deficiency Family History: Family History (Last Reviewed 02/27/24 @ 19:01 by OMAIRA Vázquez) Father Hypertension CVD (cardiovascular disease) Cancer Mother Hypertension Substance abuse Other Mental health problem Surgical History: Surgical History (Last Reviewed 02/28/24 @ 11:01 by Jalyn Ellis RN) H/O kidney removal History of nephrectomy Hx of oral surgery Hx of tonsillectomy Metastatic renal cell carcinoma to lung Pulmonary nodule 1 cm or greater in diameter Social History: Social History (Last Reviewed 02/27/24 @ 19:01 by OMAIRA Vázquez) Living Situation History: Household Members: Spouse Household Members: Family Household Members Other:: and brother and sister Housing: House Are you a primary animal caretaker to a significant other at home: No Do you presently have visiting nurse or other home services: No Alcohol History Details: 1. How often do you have a drink containing alcohol?: a. Never AUDIT-C Alcohol total score: 0 Tobacco History: Patient Tobacco Use Status: Current everyday Tobacco Tobacco use type: Cigarette Cigarette Packs Per Day: 1.5 Years Smoked: 30 Smoked in Last 30 Days: No Smoke Quit Date: 2011 e-Cigarette/Vaping Use: Currently Using Second Hand Smoke Exposure: No Additional Comments: PT uses a vape everyday very frequently Substance Use History: Use of substances other than those prescribed or required for medical reasons : No Currently Displaying Signs/Symptoms of Drug Intoxication Withdrawal: No Any prior treatment program specific to substance use: No Domestic Abuse History: Have you been hit, kicked, punched, or otherwise hurt by someone within the past year? If so, by whom?: No Do you feel safe in your current relationship?: Yes Is there a partner from a previous relationship who is making you feel unsafe now?: No Are you made to feel afraid or neglected: No Advance Directives: Advance Directives: Yes Advance Directives on File: Yes Advance Directives Date on File: 11/29/23 Homicidal Assessment: Do you have a plan to hurt others: No Plan Nutrition Assessment: Recently lost weight without trying: Yes How much weight loss: Unsure Eating poorly because of decreased appetite: Yes Nutrition screen score: 5 Nutrition Risks: No Nutritional Risk Patient : No : No Poor oral hygiene: No Occupation Assessmet: service: No Current occupational status: disabled Home Medications and Allergies Current Medications: Current Medications Acetaminophen (Acetaminophen 325 Mg Tablet) 650 mg PO Q6H PRN PRN Reason: Pain, Mild (Pain Scale 1-3) Albuterol Sulfate (Albuterol Sulfate 90 Mcg 8 Gm Inhaler) 2 puff INHALE QID PRN PRN Reason: shortness of breath or wheezing Albuterol/Ipratropium (Albuterol/Iprat 2.5/0.5mg 3 Ml Ampul.Neb) 3 ml INHALE Q6H PRN PRN Reason: shortness of breath or wheezing Amitriptyline HCl (Amitriptyline Hcl 25 Mg Tablet) 75 mg PO BEDTIME [facility] Last Admin: 02/27/24 22:42 Dose: Not Given Atorvastatin Calcium (Atorvastatin Calcium 10 Mg Tablet) 10 mg PO DAILY [facility] Bupropion HCl (Bupropion Hcl Xl 150 Mg Tab.Er.24h) 150 mg PO DAILY [facility] Clonazepam (Clonazepam 0.5 Mg Tablet) 0.5 mg PO TID PRN PRN Reason: anxiety Enoxaparin Sodium (Enoxaparin Sodium 80 Mg/0.8 Ml Syringe) 75 mg SUBCUT Q24H [facility] Last Admin: 02/27/24 20:04 Dose: 75 mg Gabapentin (Gabapentin 400 Mg Capsule) 400 mg PO TID PRN PRN Reason: neuropathic pain Cefepime HCl 2 gm/ Sodium (Chloride) 50 mls @ 100 mls/hr IV Q12H [facility] Last Infusion: 02/27/24 21:32 Dose: Infused Vancomycin HCl 750 mg/ Sodium (Chloride) 265 mls @ 265 mls/hr IV Q12H [facility] Levothyroxine Sodium (Levothyroxine Sodium 25 Mcg Tablet) 25 mcg PO DAILY@0600 [facility] Last Admin: 02/28/24 06:18 Dose: 25 mcg Lidocaine/Diphenhydr/Alum/Mg/Simeth (Mag&Al/Sim/Diphenhyd/Lidocaine 10 Ml Oral.Susp) 10 ml PO QID [facility] Last Admin: 02/27/24 21:55 Dose: Not Given Magnesium Hydroxide (Milk Of Magnesia 30 Ml Oral.Susp) 30 ml PO DAILY PRN PRN Reason: Constipation Nifedipine (Nifedipine Er 30 Mg Tab.Er.24) 30 mg PO DAILY [facility] Nystatin (Nystatin Oral Susp 500,000 Unit/5 Ml Oral.Susp) 1,000,000 unit BUCCAL TID PRN; Protocol PRN Reason: thrush Omeprazole (Omeprazole 20 Mg Capsule.Dr) 20 mg PO DAILY@0630 [facility] Last Admin: 02/28/24 06:20 Dose: 20 mg Ondansetron HCl (Ondansetron Hcl 4 Mg/2 Ml Vial) 4 mg IVPUSH Q8H PRN PRN Reason: Nausea and Vomiting Pharmacy Consult (Consult Rx Vancomycin Dosing) 1 each MISCELLANE DAILY PRN PRN Reason: Consult order Sodium Chloride (0.9 % Sodium Chloride Flush 3 Ml Syringe) [address] [facility] Last Admin: 02/28/24 00:00 Dose: Not Given Tiotropium [place] (Tiotropium [place] 2.5 Mcg 1 Puff/2.5 Mcg Mist.Inhal) 2 puff INHALE RDAILY [facility] Vitamin D (Cholecalciferol (Vitamin D3) 25 Mcg Tablet) 50 mcg PO DAILY [facility] Home Medications ?Medication ?Instructions ?Recorded ?Confirmed ?Type atorvastatin 10 mg tablet 10 mg PO DAILY 09/28/23 02/27/24 History nystatin 100,000 unit/mL oral 10 ml buccal TID PRN thrush 09/28/23 02/27/24 History suspension umeclidinium 62.5 mcg/actuation 1 inh inhalation DAILY 09/28/23 02/27/24 History blister powder for inhalation (Incruse Ellipta) bupropion HCl 150 mg 24 hr tablet, 150 mg PO DAILY 10/06/23 02/27/24 History extended release amitriptyline 75 mg tablet 75 mg PO BEDTIME 11/12/23 02/27/24 History gabapentin 400 mg capsule 400 mg PO TID PRN Pain 02/27/24 02/27/24 History lenvatinib 20 mg/day (10 mg x 2) 20 mg PO DAILY@1400 02/27/24 02/27/24 History capsule Allergies Allergy/AdvReac Type Severity Reaction Status Date / Time Sulfa (Sulfonamide Allergy Severe ANAPHYLAXIS Verified 02/27/24 11:15 Antibiotics) Penicillins Allergy Intermediate RASH Verified 02/27/24 11:15 aspirin [ASA] AdvReac Severe severe Verified 02/27/24 11:15 stomach pain NSAIDS (Non-Steroidal AdvReac Severe severe Verified 02/27/24 11:15 Anti-Inflamma stomach pain codeine [Codeine] AdvReac Intermediate NAUSEA & Verified 02/27/24 11:15 VOMITING Physical Exam Vital signs: Vital Signs Temp 98.8 F 02/28/24 06:17 Pulse 81 02/28/24 06:17 Resp 12 02/28/24 06:17 BP 157/98 H 05/29/24 06:17 Pulse Ox 99 02/28/24 06:17 O2 Del Method Room Air 02/28/24 06:17 O2 Flow Rate 2 02/28/24 03:36 Intake & Output 02/27/24 02/28/24 02/28/24 18:59 06:59 18:59 Intake Total 50 / 850 800 / 850 Output Total 450 / 450 Balance 50 / 400 350 / 400 Urine Output (Average ml/kg/hr) 0.76 Intake: Intake, IV Amount 50 / 850 800 / 850 Azithromycin 500 mg In 0.9 % 250 / 250 Sodium Chloride 250 ml @ 125 mls/hr IV ONCE ONE Rx#: [id number] cefEPime HCl 2 gm In 0.9 % 50 / 50 Sodium Chloride 50 ml @ 100 mls /hr IV Q12H [facility] Rx#:[id number] cefTRIAXone sodium 1 gm In 0.9 50 / 50 % Sodium Chloride 50 ml @ 100 mls/hr IV Q12H [facility] Rx#: [id number] vancomycin HCL 1,500 mg In 0.9 500 / 500 % Sodium Chloride 500 ml @ 333. 333 mls/hr IV ONCE ONE Rx#: [id number] Output: Output, Urine Amount 450 / 450 Other: Weight 49.6 kg Weight 49.6 kg - Constitutional Present: mild distress, chronically ill appearing - Routine HEENT Exam Head: Present: normal inspection Eye: Present: EOMI, conjunctivae pale, PERRL ENT: Present: normal oropharynx - Routine Neck Exam Present: supple. Absent: tracheal deviation - Routine Respiratory Exam Present: decreased breath sounds. Absent: accessory muscle use - Routine Cardiovascular Exam Cardiovascular: Present: S1, S2 - Routine Extremities Exam Present: normal inspection - Routine Skin Exam Present: intact - Routine Neurological Exam Present: alert, oriented X3 Hem/Onc Consult Result - Labs CBC & Chem 7: 02/28/24 04:21 02/28/24 04:21 Labs: Short CBC 02/27/24 02/27/24 02/28/24 Range/Units 11:57 18:29 04:21 WBC 5.9 5.0 4.0 L (4.8-10.8) X10*3/uL Hgb 15.1 15.1 14.5 (12.0-16.0) g/dl Hct 49.3 H 49.0 H 47.1 H (37.0-47.0) % Plt Count 204 194 217 (160-400) X10*3/uL BMP 02/27/24 02/28/24 11:57 04:21 Sodium 138 141 Potassium 4.4 4.2 Chloride 94 L 101 Carbon Dioxide 34 H 29 BUN 11 12 Creatinine 0.72 0.60 Calcium 9.0 8.5 Liver Function 02/27/24 Range/Units 11:57 Total Bilirubin 0.6 (0.0-1.0) mg/dL Direct Bilirubin 0.3 (0.0-0.5) mg/dL AST 23 (5-31) U/L ALT 12 (0-31) U/L Alkaline Phosphatase 113 (39-117) U/L Albumin 2.9 L (3.5-5.0) g/dL Urine 02/27/24 Range/Units 12:10 Urine Color Dark Yellow Urine Appearance Turbid Urine pH 6.5 (5.0-9.0) Ur Specific [place] 1.020 (1.005-1.025) Urine Protein 300 (3+) H (Neg-Trace) mg/dL Urine Glucose (UA) Negative (Negative) mg/dL Assessment and Plan Patient Active problem list reviewed?: Yes (1) Pulmonary embolism Status: Acute Assessment and plan: 1. This is a 68 year old woman with metastatic renal cell carcinoma who has been diagnosed with bilateral pneumonia and nonocclusive pulmonary embolism on CT angiogram 02/27/2024. She presents with PET significant hypoxemia, imaging revealed small volume occlusive pulmonary embolism but nodular opacities bilaterally in the dependent portions of both lungs raising suspicion for infectious or inflammatory process. She has been started on Lovenox 75 mg every 24 hours along with broad-spectrum antibiotics and steroids. Her O2 sats have improved. She has been receiving pembrolizumab with lenvatinib for renal cell carcinoma. At this time I have asked the patient to stop taking lenvatinib until her infection clears up. She can be switched to oral anticoagulants such as apixaban at this time. Risk factor for pulmonary embolism being metastatic malignancy. Overall, patient appears to be doing poorly with failure to thrive as well as progressive dementia. Patient did not remember how many children or how many siblings she has. Her daughter is quite concerned, she will need outpatient evaluation for this. She should follow up with Dr. Delacruz upon discharge. Thank you for the referral. - Time Spent With Patient Time Spent with Patient (in minutes): 20
[2024-02-28] MEDS: Tiotropium Bromide 2.5 mcg 1 PUFF/2.5 MCG MIST.INHAL 2 PUFF INHALE (08:11)
[2024-02-28 09:10] LABS: Procalcitonin 0.17 ng/mL
[2024-02-28] MEDS: Cholecalciferol (Vitamin D3) 25 MCG TABLET 50 MCG PO (09:37)
[2024-02-28] MEDS: cefEPime HCl 2 GM in 0.9 % Sodium Chloride 50 ML IV ×2 (09:37→21:34)
[2024-02-28] MEDS: Mag&Al/Sim/Diphenhyd/Lidocaine 10 ML ORAL.SUSP PO ×3 (09:37→17:37)
[2024-02-28] MEDS: buPROPion HCl XL 150 MG TAB.ER.24H PO (09:37)
[2024-02-28] MEDS: Atorvastatin Calcium 10 MG TABLET PO (09:37)
[2024-02-28 09:47] VITALS: BP 146/95; PULSE 81; RESP 18; TEMP 36.9; O2SAT 99
[2024-02-28] MEDS: vancomycin HCL 750 MG in 0.9 % Sodium Chloride 250 ML 265 MG IV (10:13)
--- NOTE | 2024-02-28 10:18 | PC.NURSE ---
speech sed high school teacher bedside at this time. abx administered per provider order. admission worksheet complete. pt waiting to go to upstairs at this time.
--- NOTE | 2024-02-28 10:29 | PC.NURSE ---
pt being transported upstairs at this time.
[2024-02-28] MEDS: NIFEdipine ER 30 MG TAB.ER.24 PO (11:08)
--- NOTE | 2024-02-28 11:20 | MHC.SL.SWA ---
Speech Pathologist Impression: oropharyngeal dysphagia Risk of Aspiration Due to: Neurological Condition Poor PO Intake Weak Voice Dysphasia Diet Status: No change Liquid Consistency and Strategies for Safe Swallow: Liquid Intake Recommendation: Thin Solid Food Consistency: Dietary Recommendations: Grnd/Mech Altered (NDD2) Additional Modifications to Solid Foods: Extra sauce/gravy Oral Medication Intake: Whole with Liquid Please contact the pharmacy regarding appropriate crushable or liquid drug formulations that are available whenever modified delivery is recommended. Compensatory Strategies and Precautions to be Taken for Safe Swallow: Sitting Upright (90 deg) Small Bites and Sips Alternate Liquids/Solids Rate of Ingestion Change Supervision While Eating and Drinking for Safe Swallow: Total Supervision (1:1) Foods to Avoid: Hard, sticky, dry, tough to chew foods Swallowing Recommended Treatments: Compens. Strategy Educat. Recommendation for Speech: Inpatient Speech Therapy Comment: Pt seen for clinical swallow eval this AM. Pt presenting w/ mild-moderate oropharyngeal dysphagia which she reports is secondary to chemo. Recommend continue w/ ground solids and thin liquids. Recommend pills administered to pt's comfort. Pt takes pills cut w/ water at baseline. May consider crushed/cut in puree at this time. Recommend 1-1 supervision. Recommend dietary consult d/t reported limited PO intake. SPECIAL POPULATION PARAPROFESSIONAL to continue to follow. Likely to recommend SPECIAL POPULATION PARAPROFESSIONAL tx at next level of care to follow discomfort chewing/swallowing in order to make appropriate recommendations for pt. Unable to rule out silent aspiration w/o instrumental swallow evaluation. Conveyor Tender [employer] Clinican/Clinical Fellow: No Supervisory Statement: I have reviewed and agree with the student/clinical fellow's documentation: N/A Speech Language Pathologist: Nirmala Marroquin M.A., CCC-SPECIAL POPULATION PARAPROFESSIONAL
[2024-02-28 11:40] VITALS: BP 136/81; PULSE 78; RESP 18; TEMP 36.8; O2SAT 99
--- NOTE | 2024-02-28 13:10 | HO.PM.IMPN ---
Subjective Subjective Date of Service: 02/28/24 Interval History: feeling better no sputum production c/o dysuria Review of Systems Review of Systems: Yes all other systems are reviewed and are negative Physical Exam Vital Signs: Vital Signs: Last Vital Signs Temp 98.3 F 02/28/24 11:40 Pulse 78 02/28/24 11:40 Resp 18 02/28/24 11:40 BP 136/81 02/28/24 11:40 Pulse Ox 99 02/28/24 11:40 O2 Del Method Room Air 02/28/24 11:40 O2 Flow Rate 2 02/28/24 09:47 Oxygen Flow Rate 2 02/27/24 11:12 BMI result Body Mass Index 19.4 Gen: chronically ill-appearing HEENT: sclera anicteric, moist mucus membranes Neck: supple Lungs: diminished Heart: regular rate and rhythm, no murmurs Abd: soft, non-tender, non-distended Ext: no edema Skin: warm/well-perfused Neuro: alert and oriented x3, no focal findings Psych: appropriate affect Objective Data Active Medications Acetaminophen (Acetaminophen 325 Mg Tablet) 650 mg PO Q6H PRN PRN Reason: Pain, Mild (Pain Scale 1-3) Albuterol Sulfate (Albuterol Sulfate 90 Mcg 8 Gm Inhaler) 2 puff INHALE QID PRN PRN Reason: shortness of breath or wheezing Albuterol/Ipratropium (Albuterol/Iprat 2.5/0.5mg 3 Ml Ampul.Neb) 3 ml INHALE Q6H PRN PRN Reason: shortness of breath or wheezing Amitriptyline HCl (Amitriptyline Hcl 25 Mg Tablet) 75 mg PO BEDTIME [facility] Last Admin: 02/27/24 22:42 Dose: Not Given Documented By: KAREN Non-Admin Reason: Patient Refused Atorvastatin Calcium (Atorvastatin Calcium 10 Mg Tablet) 10 mg PO DAILY [facility] Last Admin: 02/28/24 09:37 Dose: 10 mg Documented By: ELVIA Bupropion HCl (Bupropion Hcl Xl 150 Mg Tab.Er.24h) 150 mg PO DAILY [facility] Last Admin: 02/28/24 09:37 Dose: 150 mg Documented By: ELVIA Clonazepam (Clonazepam 0.5 Mg Tablet) 0.5 mg PO TID PRN PRN Reason: anxiety Enoxaparin Sodium (Enoxaparin Sodium 80 Mg/0.8 Ml Syringe) 75 mg SUBCUT Q24H [facility] Last Admin: 02/27/24 20:04 Dose: 75 mg Documented By: KAREN Gabapentin (Gabapentin 400 Mg Capsule) 400 mg PO TID PRN PRN Reason: neuropathic pain Cefepime HCl 2 gm/ Sodium (Chloride) 50 mls @ 100 mls/hr IV Q12H [facility] Last Infusion: 02/28/24 10:09 Dose: Infused Documented By: ELVIA Vancomycin HCl 750 mg/ Sodium (Chloride) 265 mls @ 265 mls/hr IV Q12H [facility] Last Infusion: 02/28/24 11:47 Dose: Infused Documented By: STUART Levothyroxine Sodium (Levothyroxine Sodium 25 Mcg Tablet) 25 mcg PO DAILY@0600 [facility] Last Admin: 02/28/24 06:18 Dose: 25 mcg Documented By: KAREN Lidocaine/Diphenhydr/Alum/Mg/Simeth (Mag&Al/Sim/Diphenhyd/Lidocaine 10 Ml Oral.Susp) 10 ml PO QID [facility] Last Admin: 02/28/24 09:37 Dose: 10 ml Documented By: ELVIA Magnesium Hydroxide (Milk Of Magnesia 30 Ml Oral.Susp) 30 ml PO DAILY PRN PRN Reason: Constipation Nifedipine (Nifedipine Er 30 Mg Tab.Er.24) 30 mg PO DAILY [facility] Last Admin: 02/28/24 11:08 Dose: 30 mg Documented By: STUART Nystatin (Nystatin Oral Susp 500,000 Unit/5 Ml Oral.Susp) 1,000,000 unit BUCCAL TID PRN; Protocol PRN Reason: thrush Omeprazole (Omeprazole 20 Mg Capsule.Dr) 20 mg PO DAILY@0630 [facility] Last Admin: 02/28/24 06:20 Dose: 20 mg Documented By: KAREN Ondansetron HCl (Ondansetron Hcl 4 Mg/2 Ml Vial) 4 mg IVPUSH Q8H PRN PRN Reason: Nausea and Vomiting Pharmacy Consult (Consult Rx Vancomycin Dosing) 1 each MISCELLANE DAILY PRN PRN Reason: Consult order Sodium Chloride (0.9 % Sodium Chloride Flush 3 Ml Syringe) 3 ml IVFLUSH QSHIFT [facility] Last Admin: 02/28/24 09:18 Dose: Not Given Documented By: ELVIA Non-Admin Reason: Patient Asleep Tiotropium [place] (Tiotropium [place] 2.5 Mcg 1 Puff/2.5 Mcg Mist.Inhal) 2 puff INHALE RDAILY [facility] Last Admin: 02/28/24 08:11 Dose: 2 puff Documented By: KIT Vitamin D (Cholecalciferol (Vitamin D3) 25 Mcg Tablet) 50 mcg PO DAILY [facility] Last Admin: 02/28/24 09:37 Dose: 50 mcg Documented By: ELVIA Labs 02/28/24 04:21 02/28/24 04:21 Labs: Laboratory Results - last 24 hr 02/27/24 02/27/24 02/28/24 16:03 18:29 04:21 MCV 79.0 L 78.5 L MCH 24.4 L 24.2 L MCHC 30.8 L 30.8 L RDW 20.8 H 20.8 H Plt Count 194 217 MPV 9.5 10.3 Immature Gran % (Auto) 0.5 H Neut % (Auto) 91.1 H Lymph % (Auto) 6.7 L [place] % (Auto) 1.5 L Eos % (Auto) 0.0 Baso % (Auto) 0.2 Lymph # (Auto) 0.3 L [place] # (Auto) 0.1 Eos # (Auto) 0.0 Baso # (Auto) 0.0 Abs Immat Gran (auto) 0.02 Absolute Neuts (auto) 3.7 Absolute Nucleated RBC 0.000 0.000 Nucleated RBC % (auto) 0.0 0.0 Smear Tech's Comments VERIFIED PT 14.6 H INR 1.2 H APTT 34.3 Anion Gap 15 Estim Creat Clear Calc 71.2 Estimated GFR > 60 Random Glucose 127 H Lactic Acid 1.9 Calcium 8.5 Troponin I High Sens 12.1 Procalcitonin 0.17 Microbiology Microbiology Results: Microbiology 02/27/24 Unknown Urine Culture - Preliminary Urine Catheterized - Pena Catheter Culture in progress. Assessment and Plan (1) Acute and chronic respiratory failure: Status: Acute (2) Pulmonary embolism: Status: Acute Plan d2 68yo F with renal cell carcinoma [s/p L nephrectomy 01/2020] with mets to liver + lungs currently on oral target therapy [lenvatinib], COPD on prn home O2, bronchiectasis, HTN, HLD, RLS presenting with hypoxa, cough, and weakness, found to have acute PE, PNA, and UTI acute/chronic hypoxic resp failure due to PE + PNA - supplemental O2, wean as tolerated acute PE - transition from LMWH to therapeutic apixaban as per Heme/Onc bilateral pneumonia - 02/26- vanco + cefepime; MRSA swab, urinary antigens for pneumococcus + Legionella, and BCx pending; trend PCT UTI - cefepime as above, follow UCx, Pyridium for dysuria metastatic renal cell carcinoma - hold lenvatinib for now per Heme/Onc COPD - not in acute exac, continue home inhalers + nebs hypothyroidism - continue LT4 HTN - continue nifedipine + HCTZ RLS - continue amitriptyline polyneuropathy - continue oxycodone, amitriptyline HLD - continue statin VTE ppx - on apixaban dispo - PT eval: STR recommended In my clinical judgment, the patient requires continued inpatient hospitalization for the following reasons: hypoxia, IV ABX Total time managing care of this patient today: 40 minutes. Quality Stroke Does the patient have a stroke diagnosis?: No VTE Prior VTE?: No VTE Risk Level:: Medical - moderate - high VTE Device Contraindication: Treatment Not Indicated VTE Drug Contraindication: N/A - Med Ordered
[2024-02-28 15:18] VITALS: BP 139/79; PULSE 87; RESP 18; TEMP 36.8; O2SAT 99
[2024-02-28] MEDS: Phenazopyridine HCL 200 MG TABLET PO ×2 (15:33→17:35)
[2024-02-28] MEDS: 0.9 % Sodium Chloride Flush 3 ML SYRINGE IVFLUSH (15:36)
--- NOTE | 2024-02-28 16:11 | MHC.CM.PN ---
This CM met with pt and her daughter/HCP present at bedside to discuss discharge plan. PT evaluated pt and recommended STR. Pt states she would like to return home with services, and would not like to go to [facility]. Pts daughter states they have a close friend who is an aid at one of the VNA agencies and she will find out the name and let us know, as this is the VNA agency they would like her to have. Pts daughter instructed to let case management know as soon as she finds out the VNA agency.
[2024-02-28 19:36] VITALS: BP 120/76; PULSE 88; RESP 18; TEMP 36.3; O2SAT 94
[2024-02-28 21:30] LABS: Vancomycin Random 10.8 mcg/mL (15-20)
[2024-02-28] MEDS: Amitriptyline HCl 25 MG TABLET 75 MG PO (21:33)
[2024-02-28] MEDS: Apixaban 5 MG TABLET 10 MG PO (21:34)
--- NOTE | 2024-02-28 21:43 | HE.PHANOTE ---
RE: VANCO DOSING Random came back as 10.8. Renal function is good, dose is increased to 1000 mg q12h, starting @02/27. Next random is @02/28.
[2024-02-28] MEDS: vancomycin HCL 1,000 MG in 0.9 % Sodium Chloride 250 ML 270 MG IV (23:30)
[2024-02-29] VITALS (7 sets, daily range): BP systolic 113–138; BP diastolic 64–74; PULSE 75–94; RESP 16–20; TEMP 36.2–36.7; O2SAT 92–96
[2024-02-29] MEDS: Omeprazole 20 MG CAPSULE.DR PO (06:26)
[2024-02-29] MEDS: Levothyroxine Sodium 25 MCG TABLET PO (06:26)
[2024-02-29 06:47] LABS: Creatinine Clr Calc Pharmacy 79.1; Estimated Glomerular Filt Rate > 60
[2024-02-29] MEDS: Tiotropium Bromide 2.5 mcg 1 PUFF/2.5 MCG MIST.INHAL 2 PUFF INHALE (08:29)
[2024-02-29 08:54] LABS: MRSA Nasal PCR POSITIVE (Negative); SA Nasal PCR POSITIVE (Negative)
[2024-02-29] MEDS: Mag&Al/Sim/Diphenhyd/Lidocaine 10 ML ORAL.SUSP PO ×4 (09:02→21:56)
[2024-02-29] MEDS: Cholecalciferol (Vitamin D3) 25 MCG TABLET 50 MCG PO (09:03)
[2024-02-29] MEDS: Apixaban 5 MG TABLET 10 MG PO ×2 (09:03→21:56)
[2024-02-29] MEDS: Phenazopyridine HCL 200 MG TABLET PO ×3 (09:03→16:37)
[2024-02-29] MEDS: NIFEdipine ER 30 MG TAB.ER.24 PO (09:03)
[2024-02-29] MEDS: buPROPion HCl XL 150 MG TAB.ER.24H PO (09:03)
[2024-02-29] MEDS: Atorvastatin Calcium 10 MG TABLET PO (09:03)
[2024-02-29] MEDS: 0.9 % Sodium Chloride Flush 3 ML SYRINGE IVFLUSH ×3 (09:04→21:57)
[2024-02-29] MEDS: cefEPime HCl 2 GM in 0.9 % Sodium Chloride 50 ML IV ×2 (09:04→21:56)
--- NOTE | 2024-02-29 09:29 | HO.PM.IMPN ---
Subjective Subjective Date of Service: 02/29/24 Interval History: No significant nursing events overnight. Does not want to go to [facility]. Wants to go home Physical Exam Vital Signs: Vital Signs: Last Vital Signs Temp 97.4 F 02/29/24 07:26 Pulse 89 02/29/24 08:32 Resp 16 02/29/24 08:32 BP 138/74 02/29/24 07:26 Pulse Ox 95 02/29/24 07:26 O2 Del Method Room Air 02/29/24 07:26 O2 Flow Rate 2 02/29/24 03:43 Oxygen Flow Rate 2 02/27/24 11:12 BMI result Body Mass Index 19.4 Gen: chronically ill-appearing HEENT: sclera anicteric, moist mucus membranes Neck: supple Lungs: diminished Heart: regular rate and rhythm, no murmurs Abd: soft, non-tender, non-distended Ext: no edema Skin: warm/well-perfused Neuro: alert and oriented x3, no focal findings Psych: appropriate affect Objective Data Active Medications Acetaminophen (Acetaminophen 325 Mg Tablet) 650 mg PO Q6H PRN PRN Reason: Pain, Mild (Pain Scale 1-3) Albuterol Sulfate (Albuterol Sulfate 90 Mcg 8 Gm Inhaler) 2 puff INHALE QID PRN PRN Reason: shortness of breath or wheezing Albuterol/Ipratropium (Albuterol/Iprat 2.5/0.5mg 3 Ml Ampul.Neb) 3 ml INHALE Q6H PRN PRN Reason: shortness of breath or wheezing Amitriptyline HCl (Amitriptyline Hcl 25 Mg Tablet) 75 mg PO BEDTIME [facility] Last Admin: 02/28/24 21:33 Dose: 75 mg Documented By: STEVE Apixaban (Apixaban 5 Mg Tablet) 10 mg PO BID [facility] Stop: 03/06/24 09:01 Last Admin: 02/29/24 09:03 Dose: 10 mg Documented By: STUART Atorvastatin Calcium (Atorvastatin Calcium 10 Mg Tablet) 10 mg PO DAILY [facility] Last Admin: 02/29/24 09:03 Dose: 10 mg Documented By: STUART Bupropion HCl (Bupropion Hcl Xl 150 Mg Tab.Er.24h) 150 mg PO DAILY [facility] Last Admin: 02/29/24 09:03 Dose: 150 mg Documented By: STUART Clonazepam (Clonazepam 0.5 Mg Tablet) 0.5 mg PO TID PRN PRN Reason: anxiety Gabapentin (Gabapentin 400 Mg Capsule) 400 mg PO TID PRN PRN Reason: neuropathic pain Cefepime HCl 2 gm/ Sodium (Chloride) 50 mls @ 100 mls/hr IV Q12H [facility] Last Admin: 02/29/24 09:04 Dose: 100 mls/hr Documented By: STUART Vancomycin HCl 1,000 mg/ (Sodium Chloride) 270 mls @ 270 mls/hr IV Q12H [facility] Last Infusion: 02/29/24 00:30 Dose: Infused Documented By: STEVE Levothyroxine Sodium (Levothyroxine Sodium 25 Mcg Tablet) 25 mcg PO DAILY@0600 [facility] Last Admin: 02/29/24 06:26 Dose: 25 mcg Documented By: STEVE Lidocaine/Diphenhydr/Alum/Mg/Simeth (Mag&Al/Sim/Diphenhyd/Lidocaine 10 Ml Oral.Susp) 10 ml PO QID [facility] Last Admin: 02/29/24 09:02 Dose: 10 ml Documented By: STUART Magnesium Hydroxide (Milk Of Magnesia 30 Ml Oral.Susp) 30 ml PO DAILY PRN PRN Reason: Constipation Nifedipine (Nifedipine Er 30 Mg Tab.Er.24) 30 mg PO DAILY [facility] Last Admin: 02/29/24 09:03 Dose: 30 mg Documented By: STUART Nystatin (Nystatin Oral Susp 500,000 Unit/5 Ml Oral.Susp) 1,000,000 unit BUCCAL TID PRN; Protocol PRN Reason: thrush Omeprazole (Omeprazole 20 Mg Capsule.Dr) 20 mg PO DAILY@0630 [facility] Last Admin: 02/29/24 06:26 Dose: 20 mg Documented By: STEVE Ondansetron HCl (Ondansetron Hcl 4 Mg/2 Ml Vial) 4 mg IVPUSH Q8H PRN PRN Reason: Nausea and Vomiting Pharmacy Consult (Consult Rx Vancomycin Dosing) 1 each MISCELLANE DAILY PRN PRN Reason: Consult order Phenazopyridine HCl (Phenazopyridine Hcl 200 Mg Tablet) 200 mg PO TIDWM [facility] Stop: 03/01/24 08:01 Last Admin: 02/29/24 09:03 Dose: 200 mg Documented By: STUART Sodium Chloride (0.9 % Sodium Chloride Flush 3 Ml Syringe) 3 ml IVFLUSH QSHIFT [facility] Last Admin: 02/29/24 09:04 Dose: 3 ml Documented By: STUART Tiotropium [place] (Tiotropium [place] 2.5 Mcg 1 Puff/2.5 Mcg Mist.Inhal) 2 puff INHALE RDAILY [facility] Last Admin: 02/29/24 08:29 Dose: 2 puff Documented By: ANNIA Vitamin D (Cholecalciferol (Vitamin D3) 25 Mcg Tablet) 50 mcg PO DAILY [facility] Last Admin: 02/29/24 09:03 Dose: 50 mcg Documented By: STUART Labs 02/28/24 04:21 02/29/24 06:12 Labs: Laboratory Results - last 24 hr 02/28/24 02/29/24 02/29/24 21:09 01:02 06:12 Hold Purple Top SEE NOTE Estim Creat Clear Calc 79.1 Estimated GFR > 60 Nasal Screen MRSA (PCR) POSITIVE A Nasal S. aureus Screen POSITIVE A Nasal MRSA/S.aureus Interp SEE NOTE Random Vancomycin 10.8 L Microbiology Microbiology Results: Microbiology 02/27/24 Unknown Urine Culture - Preliminary Urine Catheterized - Pena Catheter Gram negative cheryl 02/27/24 18:40 Blood Culture - Preliminary Blood - Venous No growth after 24 hours. 02/27/24 18:29 Blood Culture - Preliminary Blood - Venous No growth after 24 hours. Assessment and Plan (1) Acute UTI: Status: Acute Plan d2 68yo F with renal cell carcinoma [s/p L nephrectomy 01/2020] with mets to liver + lungs currently on oral target therapy [lenvatinib], COPD on prn home O2, bronchiectasis, HTN, HLD, RLS presenting with hypoxa, cough, and weakness, found to have acute PE, PNA, and UTI acute/chronic hypoxic resp failure due to PE + PNA - weaned to room air acute PE - transition from LMWH to therapeutic apixaban as per Heme/Onc bilateral pneumonia - 02/26- vanco + cefepime; MRSA swab, urinary antigens for pneumococcus + Legionella, and BCx pending; trend PCT UTI - cefepime as above, follow UCx, Pyridium for dysuria metastatic renal cell carcinoma - hold lenvatinib for now per Heme/Onc COPD - not in acute exac, continue home inhalers + nebs hypothyroidism - continue LT4 HTN - continue nifedipine + HCTZ RLS - continue amitriptyline polyneuropathy - continue oxycodone, amitriptyline HLD - continue statin VTE ppx - on apixaban dispo - PT eval: STR recommended but pt refusing In my clinical judgment, the patient requires continued inpatient hospitalization for the following reasons: awaiting cultures and clinical defervescence Quality Stroke Does the patient have a stroke diagnosis?: No VTE Prior VTE?: No VTE Risk Level:: Medical - moderate - high VTE Device Contraindication: Treatment Not Indicated VTE Drug Contraindication: N/A - Med Ordered
[2024-02-29] MEDS: vancomycin HCL 1,000 MG in 0.9 % Sodium Chloride 250 ML 270 MG IV (10:36)
--- NOTE | 2024-02-29 13:51 | MHC.SL.SWA ---
Speech Pathologist Impression: Risk of Aspiration Due to: Neurological Condition Poor PO Intake Weak Voice Dysphasia Diet Status: Recommend patient continue on Ground Mechanical (NDD2) with thin liquids, pills whole with liquid Liquid Consistency and Strategies for Safe Swallow: Liquid Intake Recommendation: Thin Liquid Intake Strategies: Unrestricted Solid Food Consistency: Dietary Recommendations: Grnd/Mech Altered (NDD2) Additional Modifications to Solid Foods: Extra sauce/gravy Oral Medication Intake: Whole with Liquid Please contact the pharmacy regarding appropriate crushable or liquid drug formulations that are available whenever modified delivery is recommended. Compensatory Strategies and Precautions to be Taken for Safe Swallow: Sitting Upright (90 deg) Liquids from Cup Liquids from Straw Rate of Ingestion Change Supervision While Eating and Drinking for Safe Swallow: Intermittent Supervision Foods to Avoid: Hard, sticky, dry, tough to chew foods Swallowing Recommended Treatments: Compens. Strategy Educat. Recommendation for Speech: Inpatient Speech Therapy Comment: Patient seen at breakfast. Patient presented as very pleasant, but at times quite confused and needing some orientation to task of taking pills or eating. RN was present with multiple pills for patient to take with water, which DIAMOND WHEEL EDGER offered to assist with and observe. Patient was given pills one by one, and given cup of water with straw to take them. Patient was initially wary of taking pills, but once encouraged began taking pills with ample sips of water. Patient occasionally stated that one's stuck pointing to lower neck/sternum. Patient was encouraged to drink more water in this situation which appeared to relieve the symptom. Meal of scrambled eggs and coffee was cold, DIAMOND WHEEL EDGER heated up the meal for the patient, who then took very small bites of the eggs (trace amounts, each bite). Patient stated this is how I like to eat, just a little at time. Patient at start of visit was assisted with putting in dentures, which were in place. Patient noted on trace amount of egg, to slowly masticate and propel the bolus, but produce a timely swallow. Patient was encouraged to eat as much as possible, but emphasized drinking all of the nutritional shake that came with meal, to assure adequate nutrition. Recommend patient continue on Ground Mechanical (NDD2) with thin liquids, pills whole with liquid. Patient presents as at risk for not taking adequate nutrition po, recommend continue with dietary consult. Frequency/Duration: Date Range for Service Req: Timeline to reassess: Aerial Gunner Superintendent Clinican/Clinical Fellow: No Supervisory Statement: I have reviewed and agree with the student/clinical fellow's documentation: N/A Speech Language Pathologist: Priscilla Cross M.A., CCC-DIAMOND WHEEL EDGER
--- NOTE | 2024-02-29 14:26 | MHC.CM.PN ---
Spoke with patient dtrCarrie. She requests [facility]. The referral has been sent. A referral has also been sent to [facility] for DYED YARN OPERATOR services. DP home with new [facility] via family transport.
[2024-02-29 20:17] LABS: Vancomycin Random 18.1 mcg/mL (15-20)
--- NOTE | 2024-02-29 20:58 | HE.PHANOTE ---
RE: VANCO DOSING Random came back as 18.1 which is higher than prediction of 15. Due to concern of level being supratherapeutic if dose stays at 1000 mg q12h, dose is reduced to 750 mg q12h (predicted auc 479, trough=14.4). Next random is scheduled for 03/01/24 @1999.
[2024-02-29] MEDS: Amitriptyline HCl 25 MG TABLET 75 MG PO (21:56)
[2024-02-29] MEDS: vancomycin HCL 750 MG in 0.9 % Sodium Chloride 250 ML 265 MG IV (23:02)
[2024-03-01] VITALS (8 sets, daily range): BP systolic 110–147; BP diastolic 63–84; PULSE 86–101; RESP 17–20; TEMP 36.1–36.5; O2SAT 96–97; BMI 19.4
[2024-03-01] MEDS: Levothyroxine Sodium 25 MCG TABLET PO (05:22)
[2024-03-01] MEDS: Omeprazole 20 MG CAPSULE.DR PO (05:22)
[2024-03-01 06:27] LABS: MANUAL DIFF FLAG NO
[2024-03-01 06:33] LABS: Basophils Percent Auto 0.7 % (0-2); Eosinophils Absolute Auto 0.1 X10*3/uL (0.0-0.4); Eosinophils Percent Auto 2.1 % (0-4); Hematocrit 41.8 % (37.0-47.0); Hemoglobin 12.7 g/dl (12.0-16.0); Imm Gran Abs Auto 0.02 X10*3/uL (0.00-0.03); Imm Gran Pct Auto 0.5 % (0.0-0.4); Lymphocytes Absolute Auto 0.5 X10*3/uL (1.2-4.9); Lymphocytes Percent Auto 11.1 % (20-40); Mean Corpuscular HGB Conc 30.4 g/dl (31.0-35.0); Mean Corpuscular Hemoglobin 24.2 pg (27.0-33.0); Mean Corpuscular Volume 79.6 fL (80.0-98.0); Mean Platelet Volume 9.4 fL (9.4-12.3); Monocytes Absolute Auto 0.4 X10*3/uL (0.1-1.2); Monocytes Percent Auto 8.5 % (2-11); Neutrophils Absolute Auto 3.3 x10*3/uL (2.0-8.3); Neutrophils Percent Auto 77.1 % (45-73); Platelet Count 212 X10*3/uL (160-400); Red Blood Count 5.25 X10*6/uL (4.20-5.50); Red Cell Distribution Width 19.9 % (11.0-16.0); White Blood Count 4.2 X10*3/uL (4.8-10.8)
[2024-03-01 06:44] LABS: Anion Gap 10 (12-20); Blood Urea Nitrogen 7 mg/dL (9-16); Calcium 8.5 mg/dL (8.4-10.2); Carbon Dioxide 32 mmol/L (22-29); Chloride 100 mmol/L (96-108); Creatinine Clr Calc Pharmacy 83.8; Estimated Glomerular Filt Rate > 60; Glucose Random 82 mg/dL (60-115); Potassium 3.6 mmol/L (3.3-5.1); Sodium 138 mmol/L (135-145)
[2024-03-01] MEDS: Phenazopyridine HCL 200 MG TABLET PO (09:39)
[2024-03-01] MEDS: Apixaban 5 MG TABLET 10 MG PO ×2 (09:39→21:54)
[2024-03-01] MEDS: 0.9 % Sodium Chloride Flush 3 ML SYRINGE IVFLUSH ×3 (09:40→21:55)
[2024-03-01] MEDS: buPROPion HCl XL 150 MG TAB.ER.24H PO (09:40)
[2024-03-01] MEDS: Atorvastatin Calcium 10 MG TABLET PO (09:40)
[2024-03-01] MEDS: NIFEdipine ER 30 MG TAB.ER.24 PO (09:40)
[2024-03-01] MEDS: Mag&Al/Sim/Diphenhyd/Lidocaine 10 ML ORAL.SUSP PO ×2 (09:40→15:29)
[2024-03-01] MEDS: Cholecalciferol (Vitamin D3) 25 MCG TABLET 50 MCG PO (09:40)
[2024-03-01] MEDS: cefEPime HCl 2 GM in 0.9 % Sodium Chloride 50 ML IV ×2 (09:40→21:53)
--- NOTE | 2024-03-01 10:09 | HO.PM.IMPN ---
Subjective Subjective Date of Service: 03/01/24 Interval History: No significant nursing events overnight. States she would be open to going to [facility] Physical Exam Vital Signs: Vital Signs: Last Vital Signs Temp 97.0 F 03/01/24 07:49 Pulse 100 03/01/24 07:49 Resp 17 03/01/24 07:49 BP 147/84 H 03/01/24 07:49 Pulse Ox 96 03/01/24 07:49 O2 Del Method Nasal Cannula 03/01/24 07:49 O2 Flow Rate 2 03/01/24 07:49 Oxygen Flow Rate 2 02/27/24 11:12 BMI result Body Mass Index 19.4 Gen: chronically ill-appearing HEENT: sclera anicteric, moist mucus membranes Neck: supple Lungs: diminished Heart: regular rate and rhythm, no murmurs Abd: soft, non-tender, non-distended Ext: no edema Skin: warm/well-perfused Neuro: alert and oriented x3, no focal findings Psych: appropriate affect Objective Data Active Medications Acetaminophen (Acetaminophen 325 Mg Tablet) 650 mg PO Q6H PRN PRN Reason: Pain, Mild (Pain Scale 1-3) Albuterol Sulfate (Albuterol Sulfate 90 Mcg 8 Gm Inhaler) 2 puff INHALE QID PRN PRN Reason: shortness of breath or wheezing Albuterol/Ipratropium (Albuterol/Iprat 2.5/0.5mg 3 Ml Ampul.Neb) 3 ml INHALE Q6H PRN PRN Reason: shortness of breath or wheezing Amitriptyline HCl (Amitriptyline Hcl 25 Mg Tablet) 75 mg PO BEDTIME [facility] Last Admin: 02/29/24 21:56 Dose: 75 mg Documented By: RAYSHAWN Apixaban (Apixaban 5 Mg Tablet) 10 mg PO BID [facility] Stop: 03/06/24 09:01 Last Admin: 03/01/24 09:39 Dose: 10 mg Documented By: KARLA Atorvastatin Calcium (Atorvastatin Calcium 10 Mg Tablet) 10 mg PO DAILY [facility] Last Admin: 03/01/24 09:40 Dose: 10 mg Documented By: KARLA Bupropion HCl (Bupropion Hcl Xl 150 Mg Tab.Er.24h) 150 mg PO DAILY [facility] Last Admin: 03/01/24 09:40 Dose: 150 mg Documented By: KARLA Clonazepam (Clonazepam 0.5 Mg Tablet) 0.5 mg PO TID PRN PRN Reason: anxiety Gabapentin (Gabapentin 400 Mg Capsule) 400 mg PO TID PRN PRN Reason: neuropathic pain Cefepime HCl 2 gm/ Sodium (Chloride) 50 mls @ 100 mls/hr IV Q12H [facility] Last Admin: 03/01/24 09:40 Dose: 100 mls/hr Documented By: KARLA Vancomycin HCl 750 mg/ Sodium (Chloride) 265 mls @ 265 mls/hr IV Q12H [facility] Last Infusion: 03/01/24 00:39 Dose: Infused Documented By: RAYSHAWN Levothyroxine Sodium (Levothyroxine Sodium 25 Mcg Tablet) 25 mcg PO DAILY@0600 [facility] Last Admin: 03/01/24 05:22 Dose: 25 mcg Documented By: RAYSHAWN Lidocaine/Diphenhydr/Alum/Mg/Simeth (Mag&Al/Sim/Diphenhyd/Lidocaine 10 Ml Oral.Susp) 10 ml PO QID [facility] Last Admin: 03/01/24 09:40 Dose: 10 ml Documented By: KARLA Magnesium Hydroxide (Milk Of Magnesia 30 Ml Oral.Susp) 30 ml PO DAILY PRN PRN Reason: Constipation Nifedipine (Nifedipine Er 30 Mg Tab.Er.24) 30 mg PO DAILY [facility] Last Admin: 03/01/24 09:40 Dose: 30 mg Documented By: KARLA Nystatin (Nystatin Oral Susp 500,000 Unit/5 Ml Oral.Susp) 1,000,000 unit BUCCAL TID PRN; Protocol PRN Reason: thrush Omeprazole (Omeprazole 20 Mg Capsule.Dr) 20 mg PO DAILY@0630 [facility] Last Admin: 03/01/24 05:22 Dose: 20 mg Documented By: RAYSHAWN Comments: pt requested AM meds all at once. Ondansetron HCl (Ondansetron Hcl 4 Mg/2 Ml Vial) 4 mg IVPUSH Q8H PRN PRN Reason: Nausea and Vomiting Pharmacy Consult (Consult Rx Vancomycin Dosing) 1 each MISCELLANE DAILY PRN PRN Reason: Consult order Sodium Chloride (0.9 % Sodium Chloride Flush 3 Ml Syringe) 3 ml IVFLUSH QSHIFT [facility] Last Admin: 03/01/24 09:40 Dose: 3 ml Documented By: KARLA Tiotropium [place] (Tiotropium [place] 2.5 Mcg 1 Puff/2.5 Mcg Mist.Inhal) 2 puff INHALE RDAILY [facility] Last Admin: 02/29/24 08:29 Dose: 2 puff Documented By: ANNIA Vitamin D (Cholecalciferol (Vitamin D3) 25 Mcg Tablet) 50 mcg PO DAILY [facility] Last Admin: 03/01/24 09:40 Dose: 50 mcg Documented By: KARLA Labs 03/01/24 06:04 03/01/24 06:04 Labs: Laboratory Results - last 24 hr 02/29/24 03/01/24 19:49 06:04 MCV 79.6 L MCH 24.2 L MCHC 30.4 L RDW 19.9 H Plt Count 212 MPV 9.4 Immature Gran % (Auto) 0.5 H Neut % (Auto) 77.1 H Lymph % (Auto) 11.1 L [place] % (Auto) 8.5 Eos % (Auto) 2.1 Baso % (Auto) 0.7 Lymph # (Auto) 0.5 L [place] # (Auto) 0.4 Eos # (Auto) 0.1 Baso # (Auto) 0.0 Abs Immat Gran (auto) 0.02 Absolute Neuts (auto) 3.3 Absolute Nucleated RBC 0.000 Nucleated RBC % (auto) 0.0 Anion Gap 10 L Estim Creat Clear Calc 83.8 Estimated GFR > 60 Random Glucose 82 Calcium 8.5 Random Vancomycin 18.1 Microbiology Microbiology Results: Microbiology 02/27/24 Unknown Urine Culture - Final Urine Catheterized - Pena Catheter Escherichia coli Klebsiella pneumoniae 02/27/24 18:40 Blood Culture - Preliminary Blood - Venous No growth after 48 hours. 02/27/24 18:29 Blood Culture - Preliminary Blood - Venous No growth after 48 hours. Assessment and Plan (1) Pulmonary embolism: Status: Acute Plan d2 68yo F with renal cell carcinoma [s/p L nephrectomy 01/2020] with mets to liver + lungs currently on oral target therapy [lenvatinib], COPD on prn home O2, bronchiectasis, HTN, HLD, RLS presenting with hypoxa, cough, and weakness, found to have acute PE, PNA, and UTI acute/chronic hypoxic resp failure due to PE + PNA - on 2L acute PE - transition from LMWH to therapeutic apixaban as per Heme/Onc bilateral pneumonia - 02/26- vanco + cefepime; MRSA swab, urinary antigens for pneumococcus + Legionella, and BCx pending; trend PCT UTI- ecoli + klebsiella - cefepime as above, Pyridium for dysuria metastatic renal cell carcinoma - hold lenvatinib for now per Heme/Onc COPD - not in acute exac, continue home inhalers + nebs hypothyroidism - continue LT4 HTN - continue nifedipine + HCTZ RLS - continue amitriptyline polyneuropathy - continue oxycodone, amitriptyline HLD - continue statin VTE ppx - on apixaban dispo - PT eval: [facility] In my clinical judgment, the patient requires continued inpatient hospitalization for the following reasons: IB abx, supplemental 02, placement Quality Stroke Does the patient have a stroke diagnosis?: No VTE Prior VTE?: No VTE Risk Level:: Medical - moderate - high VTE Device Contraindication: Treatment Not Indicated VTE Drug Contraindication: N/A - Med Ordered
--- NOTE | 2024-03-01 10:56 | MHC.CM.PN ---
Per ROUNDS discussion, Patient is medically cleared for dc and is now willing to go to [facility],as recommended by PT; SNF referrals have been made and [facility] auth may be needed. CM will follow.
[2024-03-01] MEDS: vancomycin HCL 750 MG in 0.9 % Sodium Chloride 250 ML 265 MG IV (11:14)
--- NOTE | 2024-03-01 11:15 | MHC.SL.SWA ---
Speech Pathologist Impression: Risk of aspiration, oral phase dysphagia Risk of Aspiration Due to: Neurological Condition Poor PO Intake Weak Voice Dysphasia Diet Status: Recommend patient continue on Ground Mechanical (NDD2) with thin liquids, pills whole with liquid Liquid Consistency and Strategies for Safe Swallow: Liquid Intake Recommendation: Thin Liquid Intake Strategies: Unrestricted Solid Food Consistency: Dietary Recommendations: Grnd/Mech Altered (NDD2) Additional Modifications to Solid Foods: Extra sauce/gravy Oral Medication Intake: Whole with Liquid Please contact the pharmacy regarding appropriate crushable or liquid drug formulations that are available whenever modified delivery is recommended. Compensatory Strategies and Precautions to be Taken for Safe Swallow: Sitting Upright (90 deg) Liquids from Cup Liquids from Straw Rate of Ingestion Change Supervision While Eating and Drinking for Safe Swallow: Intermittent Supervision Foods to Avoid: Hard, sticky, dry, tough to chew foods Swallowing Recommended Treatments: Compens. Strategy Educat. Recommendation for Speech: Inpatient Speech Therapy Comment: Likely to recommend WEB CONTENT MANAGER tx at next level of care to follow discomfort chewing/swallowing in order to make appropriate recommendations for pt. Unable to rule out silent aspiration w/o instrumental swallow evaluation. Frequency/Duration: Date Range for Service Req: Timeline to reassess: Hvac Service Tech Clinican/Clinical Fellow: No Supervisory Statement: I have reviewed and agree with the student/clinical fellow's documentation: N/A Speech Language Pathologist: Tracey Smith M.A., CCC-WEB CONTENT MANAGER
--- NOTE | 2024-03-01 11:40 | MHC.CLN ---
PT IS MODERATELY MALNOURISHED PT WITH MILDLY DEPLETED SUBCUTANEOUS FAT AND MUSCLE MASS WITH 13% NONSIGNIFICANT WT LOSS X1 YEAR WITH CHRONIC POOR PO AND INCREASED NUTRITION NEEDS R/T ACUTE ILLNESSES PO INTAKE 50% X 3 MEALS DIET RX: GRD M/S-APPROPRIATE PT RECEIVING ENSURE BID AND MAGIC CUP WITH MEALS ENSURE BID PROVIDES 700KCALS, 40G PROTEIN WITH 100% ACCEPTANCE MAGIC CUP TID PROVIDES 870KCALS, 27G PROTEIN WITH 100% ACCEPTANCE MONITOR PO INTAKE AND ENCOURAGE SUPPLEMENTS SEE ALSO FULL CLINICAL NUTRITION ASSESSMENT
[2024-03-01] MEDS: Tiotropium Bromide 2.5 mcg 1 PUFF/2.5 MCG MIST.INHAL 2 PUFF INHALE (12:07)
--- NOTE | 2024-03-01 12:15 | MHC.CM.PN ---
Per MD, Patient is not yet medically cleared for dc (still weaning O2); [facility] is the plan and CM will continue to follow.
--- NOTE | 2024-03-01 13:06 | MHC.CM.PN ---
CM spoke with Patient at bedside and with /HCP/[facility] @ [phone]. Patient fluctuates between being willing to go to [facility] and wanting to go home with new [facility]. CM explained that [facility] has offered a bed and CM will request that [facility] initiate [facility] auth, in the event that Patient ultimately decides to go to [facility] and is medically cleared for dc over the weekend. CM will continue to follow.
[2024-03-01 20:48] LABS: Vancomycin Random 12.8 mcg/mL (15-20)
[2024-03-01] MEDS: Amitriptyline HCl 25 MG TABLET 75 MG PO (21:54)
[2024-03-01] MEDS: clonazePAM 0.5 MG TABLET PO (21:55)
[2024-03-01] MEDS: Gabapentin 400 MG CAPSULE PO (21:55)
[2024-03-01] MEDS: vancomycin HCL 1,000 MG in 0.9 % Sodium Chloride 250 ML 270 MG IV (23:27)
[2024-03-02] VITALS (9 sets, daily range): BP systolic 116–129; BP diastolic 64–82; PULSE 74–97; RESP 16–20; TEMP 36–36.9; O2SAT 95–99
[2024-03-02] MEDS: Omeprazole 20 MG CAPSULE.DR PO (05:13)
[2024-03-02] MEDS: Levothyroxine Sodium 25 MCG TABLET PO (05:14)
[2024-03-02 07:11] LABS: MANUAL DIFF FLAG NO
[2024-03-02 07:16] LABS: Basophils Percent Auto 0.7 % (0-2); Eosinophils Absolute Auto 0.1 X10*3/uL (0.0-0.4); Eosinophils Percent Auto 2.7 % (0-4); Hematocrit 42.2 % (37.0-47.0); Hemoglobin 12.8 g/dl (12.0-16.0); Imm Gran Abs Auto 0.01 X10*3/uL (0.00-0.03); Imm Gran Pct Auto 0.2 % (0.0-0.4); Lymphocytes Absolute Auto 0.5 X10*3/uL (1.2-4.9); Lymphocytes Percent Auto 12.3 % (20-40); Mean Corpuscular HGB Conc 30.3 g/dl (31.0-35.0); Mean Corpuscular Hemoglobin 23.9 pg (27.0-33.0); Mean Corpuscular Volume 78.9 fL (80.0-98.0); Mean Platelet Volume 9.5 fL (9.4-12.3); Monocytes Absolute Auto 0.4 X10*3/uL (0.1-1.2); Monocytes Percent Auto 9.9 % (2-11); Neutrophils Percent Auto 74.2 % (45-73); Platelet Count 203 X10*3/uL (160-400); Red Blood Count 5.35 X10*6/uL (4.20-5.50); Red Cell Distribution Width 19.9 % (11.0-16.0); White Blood Count 4.1 X10*3/uL (4.8-10.8)
[2024-03-02 07:54] LABS: Anion Gap 14 (12-20); Blood Urea Nitrogen 8 mg/dL (9-16); Calcium 8.7 mg/dL (8.4-10.2); Carbon Dioxide 26 mmol/L (22-29); Chloride 102 mmol/L (96-108); Creatinine Clr Calc Pharmacy 83.8; Creatinine Clr Calc Pharmacy 85.4; Estimated Glomerular Filt Rate > 60; Glucose Random 75 mg/dL (60-115); Potassium 3.6 mmol/L (3.3-5.1); Sodium 138 mmol/L (135-145)
[2024-03-02] MEDS: Tiotropium Bromide 2.5 mcg 1 PUFF/2.5 MCG MIST.INHAL 2 PUFF INHALE (07:58)
[2024-03-02] MEDS: vancomycin HCL 1,000 MG in 0.9 % Sodium Chloride 250 ML 270 MG IV (08:54)
[2024-03-02] MEDS: cefEPime HCl 2 GM in 0.9 % Sodium Chloride 50 ML IV (08:54)
[2024-03-02] MEDS: Atorvastatin Calcium 10 MG TABLET PO (08:55)
[2024-03-02] MEDS: Cholecalciferol (Vitamin D3) 25 MCG TABLET 50 MCG PO (08:55)
[2024-03-02] MEDS: Apixaban 5 MG TABLET 10 MG PO ×2 (08:55→21:29)
[2024-03-02] MEDS: buPROPion HCl XL 150 MG TAB.ER.24H PO (08:55)
[2024-03-02] MEDS: 0.9 % Sodium Chloride Flush 3 ML SYRINGE IVFLUSH ×3 (08:55→21:33)
[2024-03-02] MEDS: Mag&Al/Sim/Diphenhyd/Lidocaine 10 ML ORAL.SUSP PO ×4 (08:55→21:33)
[2024-03-02] MEDS: NIFEdipine ER 30 MG TAB.ER.24 PO (08:55)
--- NOTE | 2024-03-02 15:11 | P.PNIM_ITS ---
Subjective Subjective Date of Service: 03/02/24 Interval History: Offers no acute complaints, no headache, refusing to go to rehab wishes to be discharged home, lives with . Being followed for pulmonary embolism, bilateral pneumonia, UTI due to E coli plus Klebsiella, acute on chronic hypoxic respiratory failure. Review of Systems All other system reviewed and negative Physical Exam 2 Vital Signs: Vital Signs: Last Vital Signs Temp 97.3 F 03/02/24 11:32 Pulse 89 03/02/24 11:32 Resp 20 03/02/24 11:32 BP 129/71 03/02/24 11:32 Pulse Ox 97 03/02/24 11:32 O2 Del Method Nasal Cannula 03/02/24 11:32 O2 Flow Rate 2 03/02/24 11:32 Oxygen Flow Rate 2 02/27/24 11:12 BMI result Body Mass Index 19.4 Const: Other: Gen: Awake alert in no acute distress HEENT: sclera anicteric, moist mucus membranes Neck: supple Lungs: Clear to auscultation no wheeze, no crackles Heart: regular rate and rhythm, no murmurs Abd: soft, non-tender, non-distended Ext: no edema Skin: warm/well-perfused Neuro: no focal findings Psych: appropriate affect Objective Data Active Medications Acetaminophen (Acetaminophen 325 Mg Tablet) 650 mg PO Q6H PRN PRN Reason: Pain, Mild (Pain Scale 1-3) Albuterol Sulfate (Albuterol Sulfate 90 Mcg 8 Gm Inhaler) 2 puff INHALE QID PRN PRN Reason: shortness of breath or wheezing Albuterol/Ipratropium (Albuterol/Iprat 2.5/0.5mg 3 Ml Ampul.Neb) 3 ml INHALE Q6H PRN PRN Reason: shortness of breath or wheezing Amitriptyline HCl (Amitriptyline Hcl 25 Mg Tablet) 75 mg PO BEDTIME [facility] Last Admin: 03/01/24 21:54 Dose: 75 mg Documented By: DI Apixaban (Apixaban 5 Mg Tablet) 10 mg PO BID [facility] Stop: 03/06/24 09:01 Last Admin: 03/02/24 08:55 Dose: 10 mg Documented By: BLAYNE Atorvastatin Calcium (Atorvastatin Calcium 10 Mg Tablet) 10 mg PO DAILY [facility] Last Admin: 03/02/24 08:55 Dose: 10 mg Documented By: BLAYNE Bupropion HCl (Bupropion Hcl Xl 150 Mg Tab.Er.24h) 150 mg PO DAILY [facility] Last Admin: 03/02/24 08:55 Dose: 150 mg Documented By: BLAYNE Clonazepam (Clonazepam 0.5 Mg Tablet) 0.5 mg PO TID PRN PRN Reason: anxiety Last Admin: 03/01/24 21:55 Dose: 0.5 mg Documented By: DI Gabapentin (Gabapentin 400 Mg Capsule) 400 mg PO TID PRN PRN Reason: neuropathic pain Last Admin: 03/01/24 21:55 Dose: 400 mg Documented By: DI Cefepime HCl 2 gm/ Sodium (Chloride) 50 mls @ 100 mls/hr IV Q12H [facility] Last Infusion: 03/02/24 09:24 Dose: Infused Documented By: BLAYNE Vancomycin HCl 1,000 mg/ (Sodium Chloride) 270 mls @ 270 mls/hr IV Q12H [facility] Last Infusion: 03/02/24 09:54 Dose: Infused Documented By: BLAYNE Levothyroxine Sodium (Levothyroxine Sodium 25 Mcg Tablet) 25 mcg PO DAILY@0600 [facility] Last Admin: 03/02/24 05:14 Dose: 25 mcg Documented By: YASMINE Lidocaine/Diphenhydr/Alum/Mg/Simeth (Mag&Al/Sim/Diphenhyd/Lidocaine 10 Ml Oral.Susp) 10 ml PO QID [facility] Last Admin: 03/02/24 12:13 Dose: 10 ml Documented By: BLAYNE Magnesium Hydroxide (Milk Of Magnesia 30 Ml Oral.Susp) 30 ml PO DAILY PRN PRN Reason: Constipation Nifedipine (Nifedipine Er 30 Mg Tab.Er.24) 30 mg PO DAILY [facility] Last Admin: 03/02/24 08:55 Dose: 30 mg Documented By: BLAYNE Nystatin (Nystatin Oral Susp 500,000 Unit/5 Ml Oral.Susp) 1,000,000 unit BUCCAL TID PRN; Protocol PRN Reason: thrush Omeprazole (Omeprazole 20 Mg Capsule.Dr) 20 mg PO DAILY@0630 [facility] Last Admin: 03/02/24 05:13 Dose: 20 mg Documented By: YASMINE Ondansetron HCl (Ondansetron Hcl 4 Mg/2 Ml Vial) 4 mg IVPUSH Q8H PRN PRN Reason: Nausea and Vomiting Pharmacy Consult (Consult Rx Vancomycin Dosing) 1 each MISCELLANE DAILY PRN PRN Reason: Consult order Sodium Chloride (0.9 % Sodium Chloride Flush 3 Ml Syringe) 3 ml IVFLUSH QSHIFT [facility] Last Admin: 03/02/24 08:55 Dose: 3 ml Documented By: BLAYNE Tiotropium [place] (Tiotropium [place] 2.5 Mcg 1 Puff/2.5 Mcg Mist.Inhal) 2 puff INHALE RDAILY [facility] Last Admin: 03/02/24 07:58 Dose: 2 puff Documented By: CAROL Vitamin D (Cholecalciferol (Vitamin D3) 25 Mcg Tablet) 50 mcg PO DAILY [facility] Last Admin: 03/02/24 08:55 Dose: 50 mcg Documented By: BLAYNE Labs 03/02/24 06:41 03/02/24 06:41 Labs: Laboratory Results - last 24 hr 03/01/24 03/02/24 03/02/24 20:07 06:41 06:41 MCV 78.9 L MCH 23.9 L MCHC 30.3 L RDW 19.9 H Plt Count 203 MPV 9.5 Immature Gran % (Auto) 0.2 Neut % (Auto) 74.2 H Lymph % (Auto) 12.3 L [place] % (Auto) 9.9 Eos % (Auto) 2.7 Baso % (Auto) 0.7 Lymph # (Auto) 0.5 L [place] # (Auto) 0.4 Eos # (Auto) 0.1 Baso # (Auto) 0.0 Abs Immat Gran (auto) 0.01 Absolute Neuts (auto) 3.0 Absolute Nucleated RBC 0.000 Nucleated RBC % (auto) 0.0 Anion Gap 14 Estim Creat Clear Calc 83.8 85.4 Estimated GFR > 60 Random Glucose Calcium Random Vancomycin 12.8 L 03/02/24 06:41 MCV MCH MCHC RDW Plt Count MPV Immature Gran % (Auto) Neut % (Auto) Lymph % (Auto) [place] % (Auto) Eos % (Auto) Baso % (Auto) Lymph # (Auto) [place] # (Auto) Eos # (Auto) Baso # (Auto) Abs Immat Gran (auto) Absolute Neuts (auto) Absolute Nucleated RBC Nucleated RBC % (auto) Anion Gap Estim Creat Clear Calc Estimated GFR > 60 Random Glucose 75 Calcium 8.7 Random Vancomycin Assessment and Plan (1) Pulmonary embolism: Status: Acute Plan 68yo F with renal cell carcinoma [s/p L nephrectomy 01/2020] with mets to liver + lungs currently on oral target therapy [lenvatinib], COPD on prn home O2, bronchiectasis, HTN, HLD, RLS presenting with hypoxa, cough, and weakness, found to have acute PE, PNA, and UTI acute/chronic hypoxic resp failure due to PE + PNA -stable oxygenation on 2L acute PE - seen by Oncology patient placed on Eliquis, pulmonary embolism likely due to metastatic malignancy bilateral pneumonia - on IV vanco + cefepime initiated on 02/26; MRSA swab positive urinary antigens for pneumococcus + Legionella, pending BCx showed no growth times 48 hours Will DC both vanco and cefepime and place patient on doxy and Ceftin UTI- ecoli + klebsiella - on IV cefepime day 4, will DC IV cefepime and place on by mouth Ceftin 250 b.i.d. metastatic renal cell carcinoma - hold lenvatinib for now per Heme/Onc, recent CT head on 02/16 showed no acute intracranial pathology, no acute osseous abnormality within the cervical spine. - overall patient doing poorly with failure to thrive as well as memory issues need close outpatient follow-up with Oncology COPD - not in acute exac, continue home inhalers + nebs hypothyroidism - continue LT4 HTN -stable blood pressure, continue nifedipine + HCTZ RLS - continue amitriptyline polyneuropathy - continue oxycodone, amitriptyline HLD - continue statin VTE ppx - on apixaban dispo - PT eval: STR however patient declining rehab, encourage ambulation t.i.d. will discuss with family and CM regarding safe disposition In my clinical judgment, the patient requires continued inpatient hospitalization for the following reasons: Iv abx, supplemental 02, safe disposition Quality Stroke Does the patient have a stroke diagnosis?: No VTE Prior VTE?: No VTE Risk Level:: Medical - moderate - high VTE Device Contraindication: Treatment Not Indicated VTE Drug Contraindication: N/A - Med Ordered
[2024-03-02] MEDS: cefuroxime axetiL 250 MG TABLET PO ×2 (15:58→21:32)
[2024-03-02] MEDS: Doxycycline Monohydrate 100 MG CAPSULE PO (15:58)
[2024-03-02 20:17] LABS: Vancomycin Random 21.2 mcg/mL (15-20)
[2024-03-02] MEDS: Amitriptyline HCl 25 MG TABLET 75 MG PO (21:30)
[2024-03-02 23:53] LABS: Strep Pneumo Ag urine Not Detected (Not Detected)
[2024-03-03] VITALS (7 sets, daily range): BP systolic 124–144; BP diastolic 76–89; PULSE 61–106; RESP 18–20; TEMP 36–36.7; O2SAT 87–98
[2024-03-03] MEDS: Omeprazole 20 MG CAPSULE.DR PO (06:09)
[2024-03-03] MEDS: Levothyroxine Sodium 25 MCG TABLET PO (06:09)
[2024-03-03 06:42] LABS: Vancomycin Random 13.2 mcg/mL (15-20)
[2024-03-03 06:44] LABS: Creatinine Clr Calc Pharmacy 79.1; Estimated Glomerular Filt Rate > 60
[2024-03-03] MEDS: Tiotropium Bromide 2.5 mcg 1 PUFF/2.5 MCG MIST.INHAL 2 PUFF INHALE (07:50)
[2024-03-03] MEDS: Apixaban 5 MG TABLET 10 MG PO (08:37)
[2024-03-03] MEDS: Mag&Al/Sim/Diphenhyd/Lidocaine 10 ML ORAL.SUSP PO (08:37)
[2024-03-03] MEDS: NIFEdipine ER 30 MG TAB.ER.24 PO (08:37)
[2024-03-03] MEDS: buPROPion HCl XL 150 MG TAB.ER.24H PO (08:37)
[2024-03-03] MEDS: Cholecalciferol (Vitamin D3) 25 MCG TABLET 50 MCG PO (08:37)
[2024-03-03] MEDS: cefuroxime axetiL 250 MG TABLET PO (08:37)
[2024-03-03] MEDS: Doxycycline Monohydrate 100 MG CAPSULE PO (08:37)
[2024-03-03] MEDS: Atorvastatin Calcium 10 MG TABLET PO (08:37)
[2024-03-03] MEDS: 0.9 % Sodium Chloride Flush 3 ML SYRINGE IVFLUSH (08:38)
--- NOTE | 2024-03-03 10:16 | MHC.CM.PN ---
Second IMM 03/03/24, Pt has been medically cleared for DC, CM spoke with her and her (via telephone) about STR. Pt does not want to go, and agreed to come pick her up to bring her home, [facility] services have been accepted.
--- NOTE | 2024-03-03 10:57 | P.DS_ITS ---
DS: Providers Provider Date of Service: 03/03/24 Date of admission: 02/27/24 18:22 Primary care physician: Dominic Lin MD Consults: 02/27/24 18:53 Consult to Hematology / Oncology Routine Consulting Provider: Jessika Delacruz Reason for consultation: PE, metastatic RCC DS: Diagnosis Discharge Diagnosis (1) Pulmonary embolism: Status: Acute DS: Summary Hospital Course Hospital Course: Date of Service: 02/27/24 Attending physician on admission: Dayami Falk Chief Complaint: sob, weakness, cough 68-year-old female with a PMH significant for?renal cell carcinoma (s/p left nephrectomy in 01/2020) with metastasis to the liver and lungs currently on chemotherapy (oral lenvatinib, started 11/07/2023), COPD on prn home O2, bronchiectasis, HTN, HLD, and restless leg syndrome presented to the ED earlier today for evaluation of hypoxia to 54% at home as reported by her . She has also had nonproductive cough, anorexia, lethargy/weakness ongoing for several days. She has been requiring constant use of her home O2. She has also been unsteady with multiple mechanical falls. Reports lightheadedness, sob, and palpitations. No fevers, rigors, abd pain, n/v/d, chest pain, syncope. On arr ival, pt has mild tachycardia in the 90s and mild tachypnea. No leukocytosis pr significnat anemia. Renal function and electrolyte levels normal except for chloride 94, CO2 34 which is consistent with her baseline. Lactic acid 1.9. Initial troponin 10.8, repeat 12.1. Urinalysis with 2+ leukocytes, positive nitrites, negative blood, positive urinary sediment, 4+ bacteria. Negative for influenza, COVID-19, RSV. CT of the chest shows small volume occlusive PE in the left lingular segmental pulmonary artery as well as nodular opacities seen bilaterally predominantly in the dependent portions of the pulmonary lobes increased from prior concerning for infectious versus inflammatory process versus aspiration. In the ED, has received Rocephin, Zithromax, methylprednisolone, and DuoNebs. Hospital course: 68yo F with renal cell carcinoma s/p L nephrectomy 01/2020, with mets to liver + lungs currently on oral target therapy [lenvatinib], COPD on prn home O2, bronchiectasis, HTN, HLD, RLS, presented with hypoxia cough and weakness and diagnosed to have acute on chronic hypoxic respiratory failure due to acute pulmonary embolism, pneumonia and UTI Patient admitted to telemetry unit with a diagnosis of acute on chronic hypoxic respiratory failure due to pulmonary embolism and pneumonia, CT chest showed small volume occlusive PE in the left lingular segmental pulmonary artery, as well as bilateral nodular opacities concerning for infectious versus inflammatory process versus aspiration patient was initially treated with Lovenox subsequently transitioned to Eliquis , PE likely related to underlying malignancy, patient oxygenation remained stable 2 L of oxygen, in regard to her pneumonia she was initially placed on IV vancomycin and cefepime, MRSA swab was positive, blood culture showed no growth times 48 hours , IV antibiotic discontinued and patient placed on doxycycline and Ceftin, since patient is clinically stable she is being discharged home on 2 L of continuous oxygen and 2 more days of by mouth antibiotics she is recommend to take Eliquis 10 mg twice daily for 2 more days and then transition to 5 mg 1 tablet twice daily patient was recommended short-term rehab however she declined to go to rehab, case discussed with Kwaku Stewart, he is aware of high risk for bleed while on blood thinners with high risk of fall, he is agreeable to take her home and will provide 247 care. Patient also noted to have UTI urine culture grew ecoli + klebsiella sensitive to ceftriaxone therefore patient initially treated with iv cefepime subsequently transitioned to by mouth Ceftin and will finish a total 7 day course of antibiotics. In regard to history of metastatic renal cell carcinoma, patient was evaluated by Dr. Tanner she recommend to hold lenvatinib while she is receiving antibiotics, patient was noted to be forgetful, recent CT head on 02/16 showed no acute intracranial pathology, no acute osseous abnormality within the cervical spine., since overall patient doing poorly with failure to thrive as well as memory issues need close outpatient follow-up with Oncology and PCP COPD no acute exacerbation noted recommend to continue home inhalers. hypothyroidism continue Synthroid Hypertension noted to have stable blood pressures recommend to continue home medications. For restless leg syndrome and polyneuropathy she has been continued on amitrip tyline . Time Attestation Discharge Coordination Time (in mins): 40 Quality: Safe Use of Opioids Does Pt have an Active Cancer Diagnosis on the Problem List?: No Quality: Stroke Does the patient have a stroke diagnosis?: No Physical Exam Vital Signs: Vital Signs: Last Vital Signs Temp 98.0 F 03/03/24 08:00 Pulse 91 03/03/24 08:00 Resp 20 03/03/24 08:00 BP 144/80 H 03/03/24 08:37 Pulse Ox 93 03/03/24 08:00 O2 Del Method Nasal Cannula 03/03/24 08:00 O2 Flow Rate 2 03/03/24 08:00 Oxygen Flow Rate 2 02/27/24 11:12 BMI result Body Mass Index 19.4 Const: Other: Gen: Awake alert in no acute distress HEENT: sclera anicteric, moist mucus membranes Neck: supple, no jvd Lungs: Clear to auscultation no wheeze, no crackles Heart: regular rate and rhythm, no murmurs Abd: soft, non-tender, non-distended Ext: no edema Skin: warm/well-perfused Neuro: no focal findings, forgetful Psych: appropriate affect DS: Data Data Completed and Pending Completed studies during hospitalization [Text1]: Procedures Drainage of Right Pleural Cavity with Drainage Device, Percutaneous Endoscopic Approach (10/06/23) Excision of Right Middle Lung Lobe, Percutaneous Endoscopic Approach, Diagnostic (10/06/23) Release Right Middle Lung Lobe, Percutaneous Endoscopic Approach (10/06/23) Release Right Upper Lung Lobe, Percutaneous Endoscopic Approach (10/06/23) Labs on day of discharge: Laboratory Results - last 24 hr 02/28/24 03/02/24 03/03/24 12:30 19:45 05:35 Creatinine 0.54 Estim Creat Clear Calc 79.1 Estimated GFR > 60 Random Vancomycin 21.2 H 13.2 L Ur Strep pneumoniae Ag Not Detected Preliminary micro results at discharge 02/27/24 18:40 Blood Culture - Preliminary Blood - Venous No growth after 48 hours. 02/27/24 18:29 Blood Culture - Preliminary Blood - Venous No growth after 48 hours. Discharge Plan Discharge Anticipated Discharge Date/Time: 03/03/24 14:12 Patient Disposition: Home Health Service Discharge Diagnosis: Acute on chronic hypoxic respiratory failure due to pulmonary embolism and pneumonia UTI Referrals: [facility] [Outside] - 1 Week [facility] [Outside] - 1 Week Dominic Lin MD [Primary Care Provider] - 2 days Discharge Medications: New cefuroxime axetil 250 mg Tablet 250 mg PO BID Qty: 4 0RF doxycycline monohydrate 100 mg Capsule 100 mg PO BID Qty: 4 0RF Eliquis 5 mg Tablet 5 mg PO BID Qty: 120 0RF Rx Instructions: Take Eliquis 5 mg 2 tablets (10mg) twice daily for 2 more days end date 03/05 Then from 03/06 take Eliquis 5 mg 1 tablet twice daily Continued cholecalciferol (vitamin D3) 50 mcg (2,000 unit) capsule 50 mcg PO DAILY 90 Days Qty: 90 3RF clonazepam 0.5 mg tablet 0.5 mg PO TID PRN (Reason: anxiety) 30 Days Qty: 90 0RF pantoprazole 40 mg tablet,delayed release (DR/EC) 40 mg PO DAILY Qty: 90 1RF nifedipine 30 mg tablet extended release 30 mg PO DAILY Qty: 90 3RF nystatin 100,000 unit/mL suspension 10 ml buccal TID PRN (Reason: thrush) Rx Instructions: swish 1/2 of dose in each side of the mouth for up to 5 minutes, then spit out the medicine atorvastatin 10 mg tablet 10 mg PO DAILY Incruse Ellipta 62.5 mcg/actuation blister with device 1 inh inhalation DAILY bupropion HCl 150 mg tablet extended release 24 hr 150 mg PO DAILY levothyroxine [Synthroid] 25 mcg Tablet 25 mcg PO DAILY Qty: 30 3RF Magic Mouthwash Diphen/Lido/Antacid 1:1:1 240 mL Suspension 10 ml PO QID Qty: 240 4RF Rx Instructions: Lidocaine Viscous 2 % 80mL; diphenhydramine 12.5 mg/5 mL 80mL; aluminum-mag hydrox-simeth [id number]/5mL 80mL amitriptyline 75 mg tablet 75 mg PO BEDTIME gabapentin 400 mg capsule 400 mg PO TID PRN (Reason: Pain) albuterol sulfate 90 mcg/actuation HFA aerosol inhaler 2 puff inhalation QID PRN (Reason: shortness of breath or wheezing) Qty: 8.5 6RF ipratropium-albuterol 0.5 mg-3 mg(2.5 mg base)/3 mL solution for nebulization 3 ml inhalation Q6H PRN (Reason: shortness of breath or wheezing) 30 Days Qty: 180 6RF Discontinued lenvatinib 20 mg/day (10 mg x 2) capsule 20 mg PO DAILY@1400 Discharge Orders: Discharge Order (Routine); Ordered 03/03/24 Ordered By: Dread Bland Diet: Advance to usual diet Activity on Discharge: As tolerated Stand Alone Forms: Patient Portal Discharge page Print Language: [place] Care Plan Goals: Use 2 L of oxygen continuously during day and night at rest and with activity Take Eliquis 5 mg 2 tablets twice daily for 2 more days then take Eliquis 5 mg 1 tablet twice daily starting March 06 Take by mouth antibiotics Ceftin 1 tablet twice daily for 2 more days and doxycycline 1 tablet twice daily for 2 more days Being discharged home with VNA and PT services patient declined rehab Strongly recommend to use walker and assistance with ambulation to avoid falls while on blood thinners Inform PCP with concern for falls Health Concerns: Renal cell carcinoma Plan of Treatment: Outpatient follow-up with Dr. Delacruz call office to make an appointment Outpatient follow-up with primary care physician Assessment: As above
--- NOTE | 2024-03-03 14:22 | W.MHC.F2F ---
Service Date Service Date: 03/03/24 Encounter Date of encounter: 03/03/24 Reasons for Services Signs and symptoms assessed: Shortness of breaths/hypoxia Reason for group home: CV/CP assess and/or care, medication management and teach disease management Reason for physical therapy: home safety and mobility Homebound: Leaving the home is medically contraindicated at this time without the asist of a device and/or another person due th the listed conditions above and below. Reason homebound: unsteady gait / fall risk and weakness related to hospital stay Certification: Based on the above findings, I certify that this patient is confined to the home and needs intermittent group home care, physical therapy and/or speech therapy, or continues to need occupational therapy. The patient is under my care, and I have initiated the establishment of the plan of care. The patient will be followed by a physician who will periodically review the plan of care. Time Spent With Patient Time: Total time managing care of this patient today ____ minutes.
[2024-03-05 05:53] LABS: Legionella Ag Urine Not Detected (Not Detected)
== END 2024-03-03 15:10 | disposition home health service (06) | DRG 175 ==
LOC: HO.ED 17:41 → HO.EDOVER 18:38 → HO.IMC 02-28 09:30
PROVIDERS: Family Medicine; Physician Assistant; Student in an Organized Health Care Education/Training Program; Admitting Provider Physician Assistant; Emergency Provider Emergency Medicine; PCP Internal Medicine; Visit Provider Hospitalist
DX: I26.93 Single subsegmental thrombotic pulmonary embolism without acute cor pulmonale (principal); J18.9 Pneumonia, unspecified organism; J96.21 Acute and chronic respiratory failure with hypoxia; N39.0 Urinary tract infection, site not specified; C78.7 Secondary malignant neoplasm of liver and intrahepatic bile duct; C78.02 Secondary malignant neoplasm of left lung; C78.01 Secondary malignant neoplasm of right lung; Z68.1 Body mass index [BMI] 19.9 or less, adult; J47.0 Bronchiectasis with acute lower respiratory infection; R65.10 Systemic inflammatory response syndrome (SIRS) of non-infectious origin without acute organ dysfunction; I26.99 Other pulmonary embolism without acute cor pulmonale; G25.81 Restless legs syndrome; R29.6 Repeated falls; G62.9 Polyneuropathy, unspecified; R63.0 Anorexia; R62.7 Adult failure to thrive; I10 Essential (primary) hypertension; E78.5 Hyperlipidemia, unspecified; E03.9 Hypothyroidism, unspecified; B96.20 Unspecified Escherichia coli [E. coli] as the cause of diseases classified elsewhere; B96.1 Klebsiella pneumoniae [K. pneumoniae] as the cause of diseases classified elsewhere; F17.210 Nicotine dependence, cigarettes, uncomplicated; Z71.6 Tobacco abuse counseling; Z90.5 Acquired absence of kidney; Z99.81 Dependence on supplemental oxygen; Z20.822 Contact with and (suspected) exposure to COVID-19; Z79.890 Hormone replacement therapy; Z79.899 Other long term (current) drug therapy
CPT/HCPCS: 0241U; 36415; 71045; 71275; 80048; 80076; 80202; 81001; 82565; 83605; 83735; 84145; 84484; 85025; 85027; 85610; 85730; 87040; 87086; 87088; 87186; 87449; 87640; 87641; 87899; 92526; 92610; 93005; 94640; 97116; 97162; 97530; 99285; J0456; J0692; J0696; J1650; J2919; J3370; J3371; Q9967

== ENCOUNTER → 2024-02-27 11:35 | Outpatient (BNV) | payer OTHER, SELFPAY | PROVIDERS: Emergency Provider Emergency Medicine; PCP Internal Medicine; Visit Provider Internal Medicine | DX: R53.1 Weakness (principal); I51.7 Cardiomegaly; R94.31 Abnormal electrocardiogram [ECG] [EKG] | CPT/HCPCS: 93010 ==

== ENCOUNTER → 2024-02-27 18:22 | Outpatient (BNV) | payer OTHER, SELFPAY | PROVIDERS: Admitting Provider Physician Assistant; Emergency Provider Emergency Medicine; PCP Internal Medicine; Visit Provider Internal Medicine | DX: I26.99 Other pulmonary embolism without acute cor pulmonale (principal); C64.2 Malignant neoplasm of left kidney, except renal pelvis | CPT/HCPCS: 99222 ==

== ENCOUNTER → 2024-02-27 18:22 | Outpatient (BNV) | payer OTHER, SELFPAY | PROVIDERS: Admitting Provider Physician Assistant; Emergency Provider Emergency Medicine; PCP Internal Medicine; Visit Provider Physician Assistant | DX: I26.99 Other pulmonary embolism without acute cor pulmonale (principal); J96.21 Acute and chronic respiratory failure with hypoxia | CPT/HCPCS: 99223; 99232; 99239; G0180 ==

== ENCOUNTER 2024-03-08 13:16 | Outpatient (AMB) | payer OTHER, SELFPAY ==
[2024-03-08 13:20] VITALS: BP 128/82; PULSE 102; O2SAT 95
--- NOTE | 2024-03-08 13:20 | MHC.OFFVIS ---
Vital Signs 03/08/24 13:20 Weight 99 lb BP 128/82 Blood Pressure Location Lt brachial Position Sitting Pulse 102 H Pulse Source Doppler Pulse Oximetry (%) 95 Oxygen Delivery Method Room Air Intake Visit Reasons: COPD Allergies Sulfa (Sulfonamide Antibiotics) Allergy (Severe, Verified 02/27/24 11:15) ANAPHYLAXIS Penicillins Allergy (Intermediate, Verified 02/27/24 11:15) RASH aspirin [ASA] Adverse Reaction (Severe, Verified 02/27/24 11:15) severe stomach pain NSAIDS (Non-Steroidal Anti-Inflamma Adverse Reaction (Severe, Verified 02/27/24 11:15) severe stomach pain codeine [Codeine] Adverse Reaction (Intermediate, Verified 02/27/24 11:15) NAUSEA & VOMITING HPI HPI COPD: Details: 68-year-old lady, former 30+ pack-year smoker, quit 2011 now uses vaping devices followed for bronchiectasis, abnormal chest imaging, and emphysema.?PET/CT demonstrate activity in the right-sided 1 cm nodule. Patient was referred to thoracic surgery and excisional biopsy was performed that demonstrated metastatic renal cancer. Patient is currently under oncology care on chemotherapy. She denies exacerbations of her underlying respiratory symptoms. She does have significant cachexia. [facility] Medical History Liver lesion Right lower lobe lung mass Post-operative nausea and vomiting Dry eye COVID-19 COPD (chronic obstructive pulmonary disease) Malignant neoplasm of left kidney Vitamin D deficiency Depression Primary osteoarthritis of knees, bilateral Pure hypercholesterolemia Elevated C-reactive protein (CRP) Palpitations Constipation Obstructive sleep apnea Anxiety Benign essential hypertension Renal cell carcinoma of left kidney Oral thrush Lumbar degenerative disc disease Status post fall Right foot pain Chronic allergic bronchitis GERD (gastroesophageal reflux disease) Surgical History Metastatic renal cell carcinoma to lung H/O kidney removal Hx of oral surgery Hx of tonsillectomy Pulmonary nodule 1 cm or greater in diameter History of nephrectomy Family History Father Hypertension CVD (cardiovascular disease) Cancer Mother Hypertension Substance abuse Other Mental health problem Social History Household Members: Spouse and Family Household Members Other:: and brother and sister Housing: House Are you a primary healthcare marketer to a significant other at home: No Do you presently have visiting nurse or other home services: No Alcohol intake: never Comment: COUNTS CORRECT Patient Tobacco Use Status: Current everyday Tobacco user Tobacco use type: Cigarette Cigarette Packs Per Day: 1.5 Years Smoked: 30 e-Cigarette/Vaping Use: Currently Using Second Hand Smoke Exposure: No Advance Directives Date on File: 11/29/23 service: No Current occupational status: disabled Cognitive needs: No Hearing needs: No Vision needs: No Review of Systems Const Denies daytime sleepiness, Denies excessive sweating, Reports fatigue, Denies fever(s), Reports lethargy, Denies malaise, Denies night sweats, Denies snoring and Reports weight loss Eyes Denies blurry vision and Denies itchy eyes ENT Denies nasal congestion, Denies post nasal drip, Denies sinus pain, Denies sinus pressure and Denies other ( Thrush) Card Denies chest pain, Denies pedal edema, Denies dyspnea, Denies orthopnea and Denies paroxysmal nocturnal dyspnea Resp Denies cough, Denies hemoptysis, Denies excessive phlegm production, Denies dyspnea, Denies snoring and Denies wheezing GI Denies abdominal pain and Denies heartburn Musc Denies myalgias, Denies arthralgias and Denies joint swelling Skin/Breast Denies rash Neuro Denies memory loss and Denies seizure-like activity Psych Denies abnormal sleep pattern, Denies anxiety and Denies memory loss Endo Denies excessive sweating, Reports fatigue and Denies heat intolerance Ronal/Lymph Denies easy bruising Aller/Immun Denies itchy eyes, Denies seasonal rhinorrhea and Denies wheezing Physical Exam Vital Signs: Last Vital Signs Pulse 102 H 03/08/24 13:20 BP 128/82 03/08/24 13:20 Pulse Ox 95 03/08/24 13:20 Oxygen Delivery Method Room Air 03/08/24 13:20 Const General: no acute distress and alert Nutritional Appearance: cachectic and obese Orientation/consciousness: Other orientation findings ( oriented) HEENT Head: Yes atraumatic Eyes General: appearance normal, both eyes and all related structures Sclerae: sclerae normal EOM: EOMs intact bilaterally Neck Neck: Yes supple Lymphatic: no lymphadenopathy noted Resp Effort & Inspection: normal respiratory effort and no use of accessory muscles Auscultation: clear to auscultation bilaterally Cardio Rate: regular rate Rhythm: regular rhythm Heart sounds: no gallops, no murmurs and no rubs Skin General skin exam: other ( warm) Extrem General: No clubbing, No cyanosis and No edema Assessment & Plan Assessment & Plan (1) COPD (chronic obstructive pulmonary disease): Code(s): J44.9 - Chronic obstructive pulmonary disease, unspecified Category: Medical Qualifiers: COPD type: unspecified COPD Qualified Code(s): J44.9 - Chronic obstructive pulmonary disease, unspecified Plan: Well controlled. Continue Incruse, albuterol MDI, and duo nebs. (2) Supplemental oxygen dependent: Code(s): Z99.81 - Dependence on supplemental oxygen Category: Medical Plan: Continue supplemental oxygen to maintain O2 saturation of 88-92%. (3) Cancer cachexia: Code(s): R64 - Cachexia Category: Medical Plan: Start dronabinol. Medications: New dronabinol administer before lunch and evening meal/dinner 5 mg PO BID 60 caps 3RF Coding Level of Care Code Est Pt Level 5 (63329) Diagnoses Chronic obstructive pulmonary disease, unspecified COPD type J44.9 COPD type: unspecified COPD Supplemental oxygen dependent Z99.81 Cancer cachexia R64
== END 2024-03-08 13:42 | disposition home or self-care (01) ==
PROVIDERS: PCP Internal Medicine; Visit Provider Internal Medicine Pulmonary Disease
DX: J44.9 Chronic obstructive pulmonary disease, unspecified (principal); Z99.81 Dependence on supplemental oxygen; R64 Cachexia
CPT/HCPCS: 99214

== ENCOUNTER → 2024-03-08 13:16 | Outpatient (BNVA) | payer OTHER, SELFPAY | PROVIDERS: PCP Internal Medicine; Visit Provider Internal Medicine Pulmonary Disease | DX: J44.9 Chronic obstructive pulmonary disease, unspecified (principal); R64 Cachexia; Z99.81 Dependence on supplemental oxygen | CPT/HCPCS: 99212 ==

== ENCOUNTER 2024-03-19 13:26 | Emergency (ER) | payer OTHER, SELFPAY ==
--- NOTE | ~2024-03-19 | CT_ITS ---
EXAMINATION: CT HEAD WITHOUT CONTRAST CT CERVICAL SPINE WITHOUT CONTRAST CLINICAL INFORMATION: Fall. Trauma to the head and neck COMPARISON: CT head and CT cervical spine February 17, 2024 TECHNIQUE: Imaging was performed from the skull base to vertex without intravenous administration of contrast. In addition, helical noncontrast CT imaging was acquired through the cervical spine and source images were reviewed along with axial reconstructions and sagittal and coronal MPRs. [This CT examination was performed using dose optimization techniques as appropriate, variously including the following: *Automated exposure control *Adjustment of mA and/or kV according to patient size (this includes techniques or standardized protocols for targeted exams where dose is matched to indication/reason for exam; i.e. extremities or head) *Use of iterative reconstruction technique] DLP: 753 mGy-cm FINDINGS: HEAD: No intracranial mass, hemorrhage, or midline shift is visualized. There is generalized global volume loss. There is moderate prominence of the ventricles and the sulci . There is moderate hypodensity of the periventricular white matter due to chronic small vessel ischemic disease. There are vascular calcifications of the internal carotid arteries bilaterally. No extra-axial collections are identified. The paranasal sinuses and mastoid air cells are well aerated. CERVICAL SPINE: There is no evidence of acute cervical spine fracture. Vertebral bodies remain normal in height. Cervical vertebrae have normal alignment. There is multilevel degenerative spondylosis of the cervical spine with disc height narrowing and endplate spurs and facet joint arthrosis No pre- or paravertebral soft tissue abnormality is identified. Limited assessment of the lung apices is unremarkable. CT/CT cervical spine wo IV con IMPRESSION: 1. No acute intracranial pathology. 2. No CT evidence of acute cervical spine fracture or traumatic subluxation
--- NOTE | ~2024-03-19 | XR_ITS ---
EXAMINATION: XR PELVIS AND RIGHT HIP XR SACRUM-COCCYX CLINICAL INFORMATION: History of pain after fall COMPARISON: 12/16/2021 TECHNIQUE: Pelvis, AP view Right hip, 2 views Sacrum-coccyx, 3 views FINDINGS: Pelvis: Pelvic bones have normal alignment. Joint space of each hip is maintained. No fracture or subluxation. Right hip: The femoral head is well-positioned within the intact acetabulum. The hip joint space is preserved. There is no arthritic deformity. Soft tissues are unremarkable. Sacrum and coccyx: No evidence of sacral or coccygeal fracture. The sacral ala have an intact appearance. XR/XR hip RT w PEL1V IMPRESSION: No acute abnormalities.
--- NOTE | ~2024-03-19 | XR_ITS ---
EXAMINATION: XR PELVIS AND RIGHT HIP XR SACRUM-COCCYX CLINICAL INFORMATION: History of pain after fall COMPARISON: 12/16/2021 TECHNIQUE: Pelvis, AP view Right hip, 2 views Sacrum-coccyx, 3 views FINDINGS: Pelvis: Pelvic bones have normal alignment. Joint space of each hip is maintained. No fracture or subluxation. Right hip: The femoral head is well-positioned within the intact acetabulum. The hip joint space is preserved. There is no arthritic deformity. Soft tissues are unremarkable. Sacrum and coccyx: No evidence of sacral or coccygeal fracture. The sacral ala have an intact appearance. XR/XR sacrum coccyx min 2V IMPRESSION: No acute abnormalities.
--- NOTE | 2024-03-19 13:41 | ED.GENADULT ---
HPI - General Adult General Chief complaint: Fall Stated complaint: fell head inj Source: patient Mode of arrival: ambulatory Limitations: no limitations History of Present Illness HPI narrative: Patient left before completion of treatment by ED provider Related Data Home Medications ?Medication ?Instructions ?Recorded ?Confirmed atorvastatin 10 mg tablet 10 mg PO DAILY 09/28/23 02/27/24 nystatin 100,000 unit/mL oral 10 ml buccal TID PRN thrush 09/28/23 02/27/24 suspension umeclidinium 62.5 mcg/actuation 1 inh inhalation DAILY 09/28/23 02/27/24 blister powder for inhalation (Incruse Ellipta) bupropion HCl 150 mg 24 hr tablet, 150 mg PO DAILY 10/06/23 02/27/24 extended release amitriptyline 75 mg tablet 75 mg PO BEDTIME 11/12/23 02/27/24 gabapentin 400 mg capsule 400 mg PO TID PRN Pain 02/27/24 02/27/24 Previous Rx's ?Medication ?Instructions ?Recorded albuterol sulfate 90 mcg/actuation 2 puff inhalation QID PRN 12/28/22 aerosol inhaler shortness of breath or wheezing #8.5 grams cholecalciferol (vitamin D3) 50 50 mcg PO DAILY 90 days #90 caps 07/10/23 mcg (2,000 unit) capsule ipratropium 0.5 mg-albuterol 3 mg 3 ml inhalation Q6H PRN shortness 07/25/23 (2.5 mg base)/3 mL nebulization of breath or wheezing 30 days #180 soln mL pantoprazole 40 mg tablet,delayed 40 mg PO DAILY #90 tabs 12/26/23 release nifedipine 30 mg tablet,extended 30 mg PO DAILY #90 tabs 02/08/24 release apixaban 5 mg tablet (Eliquis) 5 mg PO BID #120 tabs 03/03/24 cefuroxime axetil 250 mg tablet 250 mg PO BID #4 tabs 03/03/24 doxycycline monohydrate 100 mg 100 mg PO BID #4 caps 03/03/24 capsule dronabinol 5 mg capsule 5 mg PO BID #60 caps 03/08/24 clonazepam 0.5 mg tablet 0.5 mg PO TID PRN anxiety 30 days 03/11/24 #90 tabs Magic Mouthwash 10 ml PO QID #240 mL 03/12/24 Diphen/Lido/Antacid 1:1:1 240 mL suspension lenvatinib 10 mg/day (10 mg x 1) 20 mg (2 x 10 mg/day (10 mg x 1)) 03/14/24 capsule (Lenvima) PO DAILY #60 caps levothyroxine 25 mcg tablet 25 mcg PO DAILY #30 tabs 03/17/24 (Synthroid) Allergies Allergy/AdvReac Type Severity Reaction Status Date / Time Sulfa (Sulfonamide Allergy Severe ANAPHYLAXIS Verified 03/19/24 13:50 Antibiotics) Penicillins Allergy Intermediate RASH Verified 03/19/24 13:50 aspirin [ASA] AdvReac Severe severe Verified 03/19/24 13:50 stomach pain NSAIDS (Non-Steroidal AdvReac Severe severe Verified 03/19/24 13:50 Anti-Inflamma stomach pain codeine [Codeine] AdvReac Intermediate NAUSEA & Verified 03/19/24 13:50 VOMITING PMFSH Past Medical History Medical History Liver lesion Right lower lobe lung mass Post-operative nausea and vomiting Dry eye COVID-19 COPD (chronic obstructive pulmonary disease) Malignant neoplasm of left kidney Vitamin D deficiency Depression Primary osteoarthritis of knees, bilateral Pure hypercholesterolemia Elevated C-reactive protein (CRP) Palpitations Constipation Obstructive sleep apnea Anxiety Benign essential hypertension Renal cell carcinoma of left kidney Oral thrush Lumbar degenerative disc disease Status post fall Right foot pain Chronic allergic bronchitis GERD (gastroesophageal reflux disease) Surgical History Metastatic renal cell carcinoma to lung H/O kidney removal Hx of oral surgery Hx of tonsillectomy Pulmonary nodule 1 cm or greater in diameter History of nephrectomy Family History Family History Father Hypertension CVD (cardiovascular disease) Cancer Mother Hypertension Substance abuse Other Mental health problem Social History Social History Household Members: Spouse and Family Household Members Other:: and brother and sister Housing: House Are you a primary hearing care professional to a significant other at home: No Do you presently have visiting nurse or other home services: No Alcohol intake: never Comment: COUNTS CORRECT Patient Tobacco Use Status: Current everyday Tobacco user Tobacco use type: Cigarette Cigarette Packs Per Day: 1.5 Years Smoked: 30 e-Cigarette/Vaping Use: Currently Using Second Hand Smoke Exposure: No Advance Directives: Yes Advance Directives on File: Yes Advance Directives Date on File: 11/29/23 service: No Current occupational status: disabled Cognitive needs: No Hearing needs: No Vision needs: No Physical Exam ED Vital Signs: Vital Signs - 24 hr 03/19/24 13:49 Temperature 97.7 F Pulse Rate 101 H Respiratory Rate 18 Blood Pressure 132/82 Pulse Oximetry 97 Oxygen Delivery Method Room Air BMI result Body Mass Index 18.2 Course Course Course Narrative: RmE: DOne by OMAIRA Chairez. Patient with pmh of Cancer presents to the ED for mechanical fall. Patient states hit her head on a table and fell onto her right hip. Patient complaint is right hip right buttock pain. Head exam negative for hematomas ecchymosis crepitus or deformities. Due to patient being on blood thinner was sent for head CT cervical spine. X-rays ordered. Discharge Plan Discharge Clinical Impression: Fall Patient Disposition: Left W/O Completing Treatment Prescriptions: No Action cholecalciferol (vitamin D3) 50 mcg (2,000 unit) capsule 50 mcg PO DAILY 90 Days Qty: 90 3RF pantoprazole 40 mg tablet,delayed release (DR/EC) 40 mg PO DAILY Qty: 90 1RF nifedipine 30 mg tablet extended release 30 mg PO DAILY Qty: 90 3RF clonazepam 0.5 mg tablet 0.5 mg PO TID PRN (Reason: anxiety) 30 Days Qty: 90 0RF nystatin 100,000 unit/mL suspension 10 ml buccal TID PRN (Reason: thrush) Rx Instructions: swish 1/2 of dose in each side of the mouth for up to 5 minutes, then spit out the medicine atorvastatin 10 mg tablet 10 mg PO DAILY Incruse Ellipta 62.5 mcg/actuation blister with device 1 inh inhalation DAILY bupropion HCl 150 mg tablet extended release 24 hr 150 mg PO DAILY Magic Mouthwash Diphen/Lido/Antacid 1:1:1 240 mL Suspension 10 ml PO QID Qty: 240 4RF Rx Instructions: Lidocaine Viscous 2 % 80mL; diphenhydramine 12.5 mg/5 mL 80mL; aluminum-mag hydrox-simeth [id number]/5mL 80mL Lenvima 10 mg/day (10 mg x 1) Capsule 20 mg PO DAILY Qty: 60 4RF levothyroxine [Synthroid] 25 mcg Tablet 25 mcg PO DAILY Qty: 30 1RF amitriptyline 75 mg tablet 75 mg PO BEDTIME gabapentin 400 mg capsule 400 mg PO TID PRN (Reason: Pain) cefuroxime axetil 250 mg Tablet 250 mg PO BID Qty: 4 0RF doxycycline monohydrate 100 mg Capsule 100 mg PO BID Qty: 4 0RF Eliquis 5 mg Tablet 5 mg PO BID Qty: 120 0RF Rx Instructions: Take Eliquis 5 mg 2 tablets (10mg) twice daily for 2 more days end date 03/05 Then from 03/06 take Eliquis 5 mg 1 tablet twice daily albuterol sulfate 90 mcg/actuation HFA aerosol inhaler 2 puff inhalation QID PRN (Reason: shortness of breath or wheezing) Qty: 8.5 6RF ipratropium-albuterol 0.5 mg-3 mg(2.5 mg base)/3 mL solution for nebulization 3 ml inhalation Q6H PRN (Reason: shortness of breath or wheezing) 30 Days Qty: 180 6RF dronabinol 5 mg capsule 5 mg PO BID Qty: 60 3RF Rx Instructions: administer before lunch and evening meal/dinner Discharge Date/Time: 03/19/24 19:40
[2024-03-19 13:49] VITALS: BP 132/82; PULSE 101; RESP 18; TEMP 36.5; O2SAT 97; BMI 18.2
--- NOTE | 2024-03-19 17:57 | PC.NURSE ---
[place] [facility] [id number]
== END 2024-03-19 19:40 | disposition left against medical advice (07) ==
LOC: HO.ED 19:39
PROVIDERS: Emergency Provider Emergency Medicine; PCP Internal Medicine
DX: S09.90XA Unspecified injury of head, initial encounter (principal); W19.XXXA Unspecified fall, initial encounter; Y93.9 Activity, unspecified; Y92.9 Unspecified place or not applicable; Y99.9 Unspecified external cause status; Z53.21 Procedure and treatment not carried out due to patient leaving prior to being seen by health care provider
CPT/HCPCS: 70450; 72125; 72220; 73502; 99281; 99284

== ENCOUNTER 2024-04-16 14:03 | Outpatient (AMB) | payer OTHER, SELFPAY ==
[2024-04-16 14:25] VITALS: PULSE 96; O2SAT 96
--- NOTE | 2024-04-16 14:25 | A.OFFVIS_ITS ---
Vital Signs 04/16/24 14:25 Weight 98 lb 1.691 oz Pulse 96 Pulse Source Pulse Oximeter Pulse Oximetry (%) 96 Oxygen Delivery Method Nasal Cannula Oxygen Flow Rate 2 Intake Visit Reasons: POC/ conserving trial Allergies Sulfa (Sulfonamide Antibiotics) Allergy (Severe, Verified 04/16/24 14:25) ANAPHYLAXIS Penicillins Allergy (Intermediate, Verified 04/16/24 14:25) RASH aspirin [ASA] Adverse Reaction (Severe, Verified 04/16/24 14:25) severe stomach pain NSAIDS (Non-Steroidal Anti-Inflamma Adverse Reaction (Severe, Verified 04/16/24 14:25) severe stomach pain codeine [Codeine] Adverse Reaction (Intermediate, Verified 04/16/24 14:25) NAUSEA & VOMITING Medication List - Last Reconciled 04/16/24 by Priscilla Fisher LPN albuterol sulfate 90 mcg/actuation 2 puffs inhalation QID PRN amitriptyline 75 mg PO BEDTIME apixaban (Eliquis) 5 mg PO BID atorvastatin 10 mg PO DAILY bupropion HCl XL 150 mg PO DAILY cefuroxime axetil 250 mg PO BID cholecalciferol (vitamin D3) 50 mcg PO DAILY 90 days clonazepam 0.5 mg PO TID PRN 30 days doxycycline monohydrate 100 mg PO BID dronabinol 5 mg PO BID gabapentin 400 mg PO TID PRN ipratropium-albuterol 0.5 mg-3 mg(2.5 mg base)/3 mL 3 mL inhalation Q6H PRN 30 days lenvatinib (Lenvima) 20 mg (2 x 10 mg/day (10 mg x 1)) PO DAILY levofloxacin 500 mg PO DAILY levothyroxine (Synthroid) 25 mcg PO DAILY lidocaine HCl 2% (Lidocaine Viscous) mL topical QID lidocaine HCl 2% (Lidocaine Viscous) 1 appl mucous membrane QID Magic Mouthwash Diphen/Lido/Antacid 1:1:1 10 mL PO QID nifedipine ER 30 mg PO DAILY nitrofurantoin monohyd/m-cryst 100 mg (Macrobid) 100 mg PO Q12H nystatin 10 mL buccal TID PRN pantoprazole 40 mg PO DAILY umeclidinium 62.5 mcg/actuation (Incruse Ellipta) 1 inh inhalation DAILY [facility] Medical History Liver lesion Right lower lobe lung mass Post-operative nausea and vomiting Dry eye COVID-19 COPD (chronic obstructive pulmonary disease) Malignant neoplasm of left kidney Vitamin D deficiency Depression Primary osteoarthritis of knees, bilateral Pure hypercholesterolemia Elevated C-reactive protein (CRP) Palpitations Constipation Obstructive sleep apnea Anxiety Benign essential hypertension Renal cell carcinoma of left kidney Oral thrush Lumbar degenerative disc disease Status post fall Right foot pain Chronic allergic bronchitis GERD (gastroesophageal reflux disease) Surgical History Metastatic renal cell carcinoma to lung H/O kidney removal Hx of oral surgery Hx of tonsillectomy Pulmonary nodule 1 cm or greater in diameter History of nephrectomy Family History Father Hypertension CVD (cardiovascular disease) Cancer Mother Hypertension Substance abuse Other Mental health problem Social History Household Members: Spouse and Family Household Members Other:: and brother and sister Housing: House Are you a primary home health care provider to a significant other at home: No Do you presently have visiting nurse or other home services: No Alcohol intake: never Comment: COUNTS CORRECT Patient Tobacco Use Status: Current everyday Tobacco user Tobacco use type: Cigarette Cigarette Packs Per Day: 1.5 Years Smoked: 30 e-Cigarette/Vaping Use: Currently Using Second Hand Smoke Exposure: No Advance Directives Date on File: 11/29/23 service: No Current occupational status: disabled Cognitive needs: No Hearing needs: No Vision needs: No Physical Exam Vital Signs: Last Vital Signs Pulse 96 04/16/24 14:25 Pulse Ox 96 04/16/24 14:25 Oxygen Delivery Method Nasal Cannula 04/16/24 14:25 Oxygen Flow Rate 2 04/16/24 14:25 Office Procedures 6 Minute Walk Time:: 14:15 SPO2 % at rest: 94 Pulse at rest: 96 SPO2 % during excercise: 88 Pulse during excercise: 99 SPO2 % after excercise: 95 Pulse after excercise: 99 Distance in yards walked: 160 Jeronimo Score: 0 Performance Observations:: Elina walked on level ground without assistance, she walked on room air for 1 minute before her SPO2 decreased to 88%. Pulsed O2 started at setting 2 and with a brief rest her SPO2 increased to 93%. She maintained her SPO2 94-95% on pulsed O2 setting 2 for the remainder of the walk. [address] - 6 Minute Walk Assessment & Plan Assessment & Plan (1) COPD (chronic obstructive pulmonary disease): Code(s): J44.9 - Chronic obstructive pulmonary disease, unspecified Plan 6 minute walk test Orders: Orders AMB 6 minute walk 04/16/24 J44.9 - Chronic obstructive pulmonary disease, unspecified Coding Level of Care Code Established Pt Est Pt Level 1 (87076) Patient Type Established Diagnoses COPD (chronic obstructive pulmonary disease) J44.9 CPT Codes Coding ([id number]) Comment NURSE VISIT ONLY
[2024-04-16 14:27] VITALS: PULSE 96; O2SAT 94
== END 2024-04-16 14:32 | disposition home or self-care (01) ==
PROVIDERS: PCP Internal Medicine; Visit Provider Internal Medicine Pulmonary Disease
DX: J44.9 Chronic obstructive pulmonary disease, unspecified (principal)

== ENCOUNTER → 2024-04-16 14:03 | Outpatient (BNVA) | payer OTHER, SELFPAY | PROVIDERS: PCP Internal Medicine; Visit Provider Internal Medicine Pulmonary Disease | DX: J44.9 Chronic obstructive pulmonary disease, unspecified (principal) | CPT/HCPCS: 94618; 99211 ==

== ENCOUNTER 2024-05-15 11:52 | Outpatient (REF) | payer OTHER, SELFPAY ==
--- NOTE | ~2024-05-15 | CT_ITS ---
EXAMINATION: CT CHEST WITH IV CONTRAST CT ABDOMEN AND PELVIS WITH IV CONTRAST CLINICAL INFORMATION: History of renal cell cancer and pulmonary nodules. COMPARISON: Abdomen CT from 12/04/2020. Chest CT from 02/27/2024. Abdomen MRI from 10/24/2023. PET CT imaging from 09/12/2023. TECHNIQUE: Multidetector CT imaging examination of the chest, abdomen and pelvis was performed with intravenous administration of 85 mL Omnipaque 350. Axial images are displayed at 0.75 mm and 5 mm slice thickness. Coronal and sagittal reformatted images were generated at the technologist's workstation and submitted for review. This CT examination was performed using dose optimization techniques as appropriate, variously including the following: *Automated exposure control *Adjustment of mA and/or kV according to patient size (this includes techniques or standardized protocols for targeted exams where dose is matched to indication/reason for exam; i.e. extremities or head) *Use of iterative reconstruction technique DLP: 297 mGy-cm FINDINGS: CHEST - LUNGS AND PLEURA: Mild centrilobular emphysema. Scattered foci of endobronchial mucus. Overall, interval improvement in tree-in-bud nodularity and patchy opacities previously seen in both lungs on 02/27/2024. No new infiltrates. Postoperative changes from prior wedge resection of anterior segment of right upper lobe along the minor fissure. There was a postoperative consolidative opacity in this area on 11/11/2023 which became partially cavitary in appearance on 02/27/2024, and this area of postoperative change is similar in appearance compared to 02/27/2024. The previously identified metastatic pulmonary nodules have resolved. However, there is a residual 0.5 cm nodular focus in the medial aspect of the lingula (image 337, series 7), unchanged compared to 02/19/2024 and corresponding to location of 1.4 cm nodule on 11/11/2023. No pleural effusion. CARDIOVASCULAR: The heart size is normal. No pericardial effusion. Pulmonary arteries and thoracic aorta are normal in caliber. Atherosclerotic disease of the aorta without aneurysm or dissection. MEDIASTINUM/LOWER NECK: No mediastinal mass. The esophagus and thyroid gland are unremarkable. LYMPHATICS: No axillary lymphadenopathy. No pathologic sized mediastinal lymph nodes. A stable right hilar lymph node is 0.9 cm short axis dimension. BONES AND THORACIC SOFT TISSUES: Old postoperative fracture of right anterior third rib. Mild multilevel discovertebral degenerative change of the thoracic spine. ABDOMEN AND PELVIS - HEPATOBILIARY: A heterogeneously hypodense lesion in the lateral aspect of the right lobe of the liver measures up to 3 cm AP. This corresponds to the heterogeneously enhancing metastatic lesion that measured up to 5.8 cm AP on 10/24/2023. The hypoattenuation within this focus likely represents posttreatment necrosis. No new liver lesions. Gallbladder wall is mildly thickened. No inflammatory stranding of pericholecystic fat. No evidence of cholelithiasis or dilated bile ducts. No pericholecystic fluid collection. PANCREAS: No edema, mass or pancreatic ductal dilatation. SPLEEN: Normal. ADRENAL GLANDS AND KIDNEYS: No adrenal mass. Status post left nephrectomy. No soft tissue nodularity or fluid in the nephrectomy bed. The right kidney and right ureter are normal. BOWEL AND PERITONEUM: No dilated bowel loops. No focal bowel wall thickening, mesenteric fat stranding or free fluid. ABDOMINAL WALL: Unremarkable. VESSELS: Atherosclerosis of the abdominal aorta and iliac arteries without aneurysm. Inferior vena cava is normal. LYMPH NODES: No pathologic sized lymph nodes in the abdomen or pelvis. No inguinal lymphadenopathy. BLADDER: Normal. PELVIC VISCERA: No evidence of uterine or adnexal mass. MUSCULOSKELETAL: Multilevel degenerative arthropathy and levoscoliosis of the lumbar spine. No aggressive osseous lesions. CT/CT abdomen pelvis w IV con IMPRESSION: * Significant improvement of metastatic disease compared to prior imaging exams from 10/24/2023 and 11/11/2023. A small residual nodule in the medial aspect of the lingula corresponds to the location of a 1.4 cm metastatic nodule seen on 11/11/2023. * Interval decrease size of the metastatic lesion in the right lobe of the liver compared to the MRI from 10/24/2023. The residual lesion is predominantly hypodense, likely representing posttreatment necrosis. No new liver lesions. No abdominal lymphadenopathy. * Mild pulmonary emphysema. * Overall, interval improvement in infectious/inflammatory changes involving airways with decreased tree-in-bud nodularity compared to 02/27/2024.
[2024-05-15] MEDS: iohexoL 350 MG/ML 100 ML INFUS..BTL IV (13:28)
[2024-05-16 06:30] LABS: Creatinine POC 0.7 mg/dL (0.5-1.4); GFR POC > 60
== END 2024-05-15 11:53 | disposition home or self-care (01) ==
LOC: HO.CT 11:52
PROVIDERS: Visit Provider Internal Medicine Medical Oncology
DX: C64.2 Malignant neoplasm of left kidney, except renal pelvis (principal)
CPT/HCPCS: 71260; 74177; 82565; Q9967

== ENCOUNTER 2024-06-06 13:26 | Outpatient (AMB) | payer OTHER, SELFPAY ==
[2024-06-06 13:29] VITALS: BP 118/60; PULSE 91; O2SAT 95; BMI 17.5
--- NOTE | 2024-06-06 13:29 | A.OFFVIS_ITS ---
Vital Signs 06/06/24 13:29 Height 5 ft 2 in Weight 95 lb 14.417 oz BMI 17.5 BP 118/60 Blood Pressure Location Lt brachial Position Sitting Pulse 91 Pulse Source Doppler Pulse Oximetry (%) 95 Oxygen Delivery Method Nasal Cannula Oxygen Flow Rate 2 Intake Visit Reasons: COPD Allergies Sulfa (Sulfonamide Antibiotics) Allergy (Severe, Verified 04/16/24 14:25) ANAPHYLAXIS Penicillins Allergy (Intermediate, Verified 04/16/24 14:25) RASH aspirin [ASA] Adverse Reaction (Severe, Verified 04/16/24 14:25) severe stomach pain NSAIDS (Non-Steroidal Anti-Inflamma Adverse Reaction (Severe, Verified 04/16/24 14:25) severe stomach pain codeine [Codeine] Adverse Reaction (Intermediate, Verified 04/16/24 14:25) NAUSEA & VOMITING HPI HPI COPD: Details: 69-year-old lady, former 30+ pack-year smoker, quit 2011 after used vaping devices followed for bronchiectasis, abnormal chest imaging, and emphysema.?PET/CT demonstrate activity in the right-sided 1 cm nodule. Patient was referred to thoracic surgery and excisional biopsy was performed that demonstrated metastatic renal cancer. Patient is currently under oncology care on chemotherapy. She denies exacerbations of her underlying respiratory symptoms. She does have significant cachexia. She was not able to get d ronabinol as prescribed at the last office visit. She did have pulmonary emboli and is now on apixaban. [facility] Medical History (Updated 06/06/24 @ 14:45 by Lorenzo Rosenbaum MD) COPD (chronic obstructive pulmonary disease) Liver lesion Right lower lobe lung mass Post-operative nausea and vomiting Dry eye COVID-19 COPD (chronic obstructive pulmonary disease) Malignant neoplasm of left kidney Vitamin D deficiency Depression Primary osteoarthritis of knees, bilateral Pure hypercholesterolemia Elevated C-reactive protein (CRP) Palpitations Constipation Obstructive sleep apnea Anxiety Benign essential hypertension Renal cell carcinoma of left kidney Oral thrush Lumbar degenerative disc disease Status post fall Right foot pain Chronic allergic bronchitis GERD (gastroesophageal reflux disease) Surgical History Metastatic renal cell carcinoma to lung H/O kidney removal Hx of oral surgery Hx of tonsillectomy Pulmonary nodule 1 cm or greater in diameter History of nephrectomy Family History Father Hypertension CVD (cardiovascular disease) Cancer Mother Hypertension Substance abuse Other Mental health problem Social History Household Members: Spouse and Family Household Members Other:: and brother and sister Housing: House Are you a primary career guidance technician to a significant other at home: No Do you presently have visiting nurse or other home services: No Alcohol intake: never Comment: COUNTS CORRECT Patient Tobacco Use Status: Current everyday Tobacco user Tobacco use type: Cigarette Cigarette Packs Per Day: 1.5 Years Smoked: 30 e-Cigarette/Vaping Use: Currently Using Second Hand Smoke Exposure: No Advance Directives Date on File: 11/29/23 service: No Current occupational status: disabled Cognitive needs: No Hearing needs: No Vision needs: No Review of Systems Const Denies daytime sleepiness, Denies excessive sweating, Denies fatigue, Denies fever(s), Denies lethargy, Denies malaise, Denies night sweats, Denies snoring and Denies weight loss Eyes Denies blurry vision and Denies itchy eyes ENT Denies nasal congestion, Denies post nasal drip, Denies sinus pain, Denies sinus pressure and Denies other ( Thrush) Card Denies chest pain, Denies pedal edema, Denies dyspnea, Denies orthopnea and Denies paroxysmal nocturnal dyspnea Resp Denies cough, Denies hemoptysis, Denies excessive phlegm production, Denies dyspnea, Denies snoring and Denies wheezing GI Denies abdominal pain and Denies heartburn Musc Denies myalgias, Denies arthralgias and Denies joint swelling Skin/Breast Denies rash Neuro Denies memory loss and Denies seizure-like activity Psych Denies abnormal sleep pattern, Denies anxiety and Denies memory loss Endo Denies excessive sweating, Denies fatigue and Denies heat intolerance Ronal/Lymph Denies easy bruising Aller/Immun Denies itchy eyes, Denies seasonal rhinorrhea and Denies wheezing Physical Exam Vital Signs: Last Vital Signs Pulse 91 06/06/24 13:29 BP 118/60 06/06/24 13:29 Pulse Ox 95 06/06/24 13:29 Oxygen Delivery Method Nasal Cannula 06/06/24 13:29 Oxygen Flow Rate 2 06/06/24 13:29 BMI result Body Mass Index 17.5 Const General: no acute distress and alert Nutritional Appearance: cachectic Orientation/consciousness: Other orientation findings ( oriented) HEENT Head: Yes atraumatic Eyes General: appearance normal, both eyes and all related structures Sclerae: sclerae normal EOM: EOMs intact bilaterally Neck Neck: Yes supple Lymphatic: no lymphadenopathy noted Resp Effort & Inspection: normal respiratory effort and no use of accessory muscles Auscultation: clear to auscultation bilaterally Cardio Rate: regular rate Rhythm: regular rhythm Heart sounds: no gallops, no murmurs and no rubs Skin General skin exam: other ( warm) Extrem General: No clubbing, No cyanosis and No edema Assessment & Plan Assessment & Plan (1) COPD (chronic obstructive pulmonary disease): Code(s): J44.9 - Chronic obstructive pulmonary disease, unspecified Category: Medical Qualifiers: COPD type: unspecified COPD Qualified Code(s): J44.9 - Chronic obstructive pulmonary disease, unspecified Plan: Well controlled on Incruse, duo nebs, and albuterol MDI. Continue current regimen. (2) Supplemental oxygen dependent: Code(s): Z99.81 - Dependence on supplemental oxygen Category: Medical Plan: Continue supplemental oxygen to maintain O2 saturation of 88-93%. (3) Cancer cachexia: Code(s): R64 - Cachexia Category: Medical Plan: Dronabinol reordered. Coding Level of Care Code Est Pt Level 4 (79013) Diagnoses Chronic obstructive pulmonary disease, unspecified COPD type J44.9 COPD type: unspecified COPD Supplemental oxygen dependent Z99.81 Cancer cachexia R64
== END 2024-06-06 13:50 | disposition home or self-care (01) ==
PROVIDERS: PCP Internal Medicine; Visit Provider Internal Medicine Pulmonary Disease
DX: J44.9 Chronic obstructive pulmonary disease, unspecified (principal); Z99.81 Dependence on supplemental oxygen; R64 Cachexia
CPT/HCPCS: 99214

== ENCOUNTER → 2024-06-06 13:26 | Outpatient (BNVA) | payer OTHER, SELFPAY | PROVIDERS: PCP Internal Medicine; Visit Provider Internal Medicine Pulmonary Disease | DX: J44.9 Chronic obstructive pulmonary disease, unspecified (principal); R64 Cachexia; Z87.891 Personal history of nicotine dependence; Z99.81 Dependence on supplemental oxygen | CPT/HCPCS: 99212 ==

== ENCOUNTER 2024-06-18 16:40 | Emergency (ER) | payer OTHER, SELFPAY ==
--- NOTE | ~2024-06-18 | XR_ITS ---
EXAMINATION: PORTABLE CHEST 1 VIEW CLINICAL INFORMATION: weakness. COMPARISON: 02/27/2024. TECHNIQUE: Portable frontal view of the chest was obtained. FINDINGS: The lungs are well expanded. No focal infiltrate, effusion, edema, or pneumothorax. Chain staple line in the right hilar region again noted. Cardiac and mediastinal silhouettes are within normal limits for technique. No acute bony abnormality seen. XR/XR chest 1V IMPRESSION: No evidence of acute disease. Electronically signed by: Gerald Macdonald MD 06/18/2024 06:30 PM EDT RP
[2024-06-18 16:43] VITALS: BP 115/75; PULSE 107; RESP 20; TEMP 36.4; O2SAT 99; BMI 21.0
--- NOTE | 2024-06-18 16:43 | ED_ITS ---
HPI - General Adult General Chief complaint: Recheck/Abnormal Lab/Rx Stated complaint: Abd Labs/hypotensive/confusion/UTI? Time Seen by Provider: 06/18/24 17:01 Source: patient Mode of arrival: ambulatory Limitations: no limitations History of Present Illness ED Provider: Dr. Cheryle Edgar HPI narrative: patient comes to the emergency room complaining of feeling weak, forgetful. Patient's is at bedside, states that this is the patient's typical presentation for a UTI. Patient is known to have renal cell carcinoma, undergoing chemotherapy. Patient states that she went to see Dr. Tanner from Oncology today. In the office, she was given a L of normal saline and ceftriaxone. it was reported that patient's blood pressure was in the low 90s. Patient also known to have COPD, uses 2 L at home. Patient states that she has not had any respiratory issues, no nausea vomiting, 1 episode of loose stools but no significant diarrhea. Denies hematuria or dysuria , denies flank pain. The patient's knowledge she has not had any fever or chills Related Data Home Medications ?Medication ?Instructions ?Recorded ?Confirmed umeclidinium 62.5 mcg/actuation 1 inh inhalation DAILY 09/28/23 04/16/24 blister powder for inhalation (Incruse Ellipta) bupropion HCl 150 mg 24 hr tablet, 150 mg PO DAILY 10/06/23 04/16/24 extended release lidocaine HCl 2 % mucosal solution ml topical QID 04/02/24 04/16/24 (Lidocaine Viscous) Previous Rx's ?Medication ?Instructions ?Recorded albuterol sulfate 90 mcg/actuation 2 puff inhalation QID PRN 12/28/22 aerosol inhaler shortness of breath or wheezing #8.5 grams cholecalciferol (vitamin D3) 50 50 mcg PO DAILY 90 days #90 caps 07/10/23 mcg (2,000 unit) capsule ipratropium 0.5 mg-albuterol 3 mg 3 ml inhalation Q6H PRN shortness 07/25/23 (2.5 mg base)/3 mL nebulization of breath or wheezing 30 days #180 soln mL nifedipine 30 mg tablet,extended 30 mg PO DAILY #90 tabs 02/08/24 release apixaban 5 mg tablet (Eliquis) 5 mg PO BID #120 tabs 03/03/24 cefuroxime axetil 250 mg tablet 250 mg PO BID #4 tabs 03/03/24 doxycycline monohydrate 100 mg 100 mg PO BID #4 caps 03/03/24 capsule dronabinol 5 mg capsule 5 mg PO BID #60 caps 03/08/24 Magic Mouthwash 10 ml PO QID #240 mL 03/12/24 Diphen/Lido/Antacid 1:1:1 240 mL suspension levothyroxine 25 mcg tablet 25 mcg PO DAILY #30 tabs 03/17/24 (Synthroid) lenvatinib 10 mg/day (10 mg x 1) 20 mg (2 x 10 mg/day (10 mg x 1)) 03/29/24 capsule (Lenvima) PO DAILY #60 caps lidocaine HCl 2 % mucosal solution 1 appl mucous membrane QID #300 mL 04/02/24 (Lidocaine Viscous) nitrofurantoin 100 mg PO Q12H #14 caps 04/02/24 monohydrate/macrocrystals 100 mg capsule (Macrobid) atorvastatin 10 mg tablet 10 mg PO DAILY #90 tabs 04/03/24 levofloxacin 500 mg tablet 500 mg PO DAILY #10 tabs 04/11/24 clonazepam 0.5 mg tablet 0.5 mg PO TID PRN anxiety 30 days 04/23/24 #90 tabs gabapentin 400 mg capsule 400 mg PO TID #270 caps 04/23/24 nystatin 100,000 unit/mL oral 10 ml buccal TID PRN thrush #300 mL 04/23/24 suspension nystatin 100,000 unit/mL oral 100,000 unit PO BID-TID #300 mL 04/23/24 suspension amitriptyline 75 mg tablet 75 mg PO DAILY #90 tabs 05/01/24 pantoprazole 40 mg tablet,delayed 40 mg PO DAILY #90 tabs 05/31/24 release apixaban 5 mg tablet (Eliquis) 5 mg PO BID #60 tabs 06/06/24 cefuroxime axetil 250 mg tablet 250 mg PO BID #14 tabs 06/18/24 sucralfate 100 mg/mL oral 10 ml PO BID PRN GERD symptoms 30 06/18/24 suspension (Carafate) days #473 mL Allergies Allergy/AdvReac Type Severity Reaction Status Date / Time Sulfa (Sulfonamide Allergy Severe ANAPHYLAXIS Verified 06/18/24 16:50 Antibiotics) Penicillins Allergy Intermediate RASH Verified 06/18/24 16:50 aspirin [ASA] AdvReac Severe severe Verified 06/18/24 16:50 stomach pain NSAIDS (Non-Steroidal AdvReac Severe severe Verified 06/18/24 16:50 Anti-Inflamma stomach pain codeine [Codeine] AdvReac Intermediate NAUSEA & Verified 06/18/24 16:50 VOMITING Review of Systems 2 Review of Systems: Constitutional : No Weight loss, No Fever, No Chills, No Night Sweats, feeling fatigue, has generalized malaise ENT/Mouth : No Hearing loss, No Ear Pain, No Nasal Congestion, No Sinus Pain, No Hoarseness, No sore throat, No Rhinorrhea, No Swallowing Difficulty Eyes: No Eye Pain, No Swelling, No Redness, No Foreign Body, No Discharge, No Vision Changes Cardiovascular : No Chest Pain, No SOB, No Dyspnea on Exertion, No Orthopnea, No Edema, No Palpitations Respiratory : No Cough, No Sputum, No Wheezing, No Smoke Exposure, No Dyspnea Gastrointestinal : No Nausea, No Vomiting, No Diarrhea, No Constipation, No abdominal Pain, No Hematochezia, No Melena Genitourinary : no irregular bleeding, No Dysuria, No Urinary Frequency, No Hematuria, No Urinary Incontinence, No Urgency, No Flank Pain, No Urinary Flow Changes, No Hesitancy Musculoskeletal : No joint pain, No Myalgias, No Joint Swelling Skin : No Skin Lesions, No rash Neuro : No Weakness, No Numbness, No Paresthesias, No Loss of Consciousness, No Dizziness, No Headache Psych : No Anxiety/Panic, No Depression, No SI/HI/AH/VH, No Social Issues, Heme/Lymph: No Bruising, No Bleeding,No Lymphadenopathy Endocrine : No Polyuria, No Polydipsia, No Temperature Intolerance [facility] Past Medical History Medical History COPD (chronic obstructive pulmonary disease) Liver lesion Right lower lobe lung mass Post-operative nausea and vomiting Dry eye COVID-19 COPD (chronic obstructive pulmonary disease) Malignant neoplasm of left kidney Vitamin D deficiency Depression Primary osteoarthritis of knees, bilateral Pure hypercholesterolemia Elevated C-reactive protein (CRP) Palpitations Constipation Obstructive sleep apnea Anxiety Benign essential hypertension Renal cell carcinoma of left kidney Oral thrush Lumbar degenerative disc disease Status post fall Right foot pain Chronic allergic bronchitis GERD (gastroesophageal reflux disease) Surgical History Metastatic renal cell carcinoma to lung H/O kidney removal Hx of oral surgery Hx of tonsillectomy Pulmonary nodule 1 cm or greater in diameter History of nephrectomy Family History Family History Father Hypertension CVD (cardiovascular disease) Cancer Mother Hypertension Substance abuse Other Mental health problem Social History Social History Household Members: Spouse and Family Household Members Other:: and brother and sister Housing: House Are you a primary child care coordinator to a significant other at home: No Do you presently have visiting nurse or other home services: No Alcohol intake: never Comment: COUNTS CORRECT Patient Tobacco Use Status: Current everyday Tobacco user Tobacco use type: Cigarette Cigarette Packs Per Day: 1.5 Years Smoked: 30 Smoked in Last 30 Days: No e-Cigarette/Vaping Use: Currently Using Second Hand Smoke Exposure: No Use of substances other than those prescribed or required for medical reasons: No Advance Directives: Yes Advance Directives on File: Yes Advance Directives Date on File: 11/29/23 service: No Current occupational status: disabled Cognitive needs: No Hearing needs: No Vision needs: No Physical Exam ED Vital Signs: Vital Signs - 24 hr 06/18/24 16:43 06/18/24 17:36 06/18/24 19:25 Temperature 97.5 F Pulse Rate 107 H 98 97 Respiratory Rate 20 16 10 L Blood Pressure 115/75 121/82 Pulse Oximetry 99 100 Oxygen Delivery Method Nasal Cannula Nasal Cannula Oxygen Flow Rate 2 BMI result Body Mass Index 21.0 Const Other: Appearance: Alert. Oriented X3. no acute distress, chronically ill, seems weak Eyes: Pupils equal, round and reactive to light. ENT: Pharynx normal. dry oral mucosa Neck: Normal inspection. Neck supple. No lymph nodes noted. No crepitus CVS: Normal heart rate and rhythm. Pulses normal. Normal S1 and S2 Respiratory: No respiratory distress. Breath sounds normal. No Wheezing. No rales Abdomen: Soft and nontender. No rigidity. No distention. Skin: Skin warm and dry. Normal skin color. Normal skin turgor. Extremities: No lower extremity edema. No Lacerations. No Rash Neuro: Oriented X 3. No motor deficit. No sensory deficit. Moving all extremities. No slurred speech. CN 2 through 12 grossly intact Psych: calm, cooperative, normal affect Course Course Course Narrative: This is a Rapid Medical Examination (RME) performed by Ronnie Nguyen PA-C in triage. Full HPI, ROS, assessment and treatment plan per primary provider in the Main ED. 69 yo female with history of COPD on 2L at baseline, LANEY, HLD, GERD, cachexia, hx HTN, RCC with mets to liver and lung on chemo and keytruda s/p left nephrectomy 01/[address] Delacruz who [facility] for evaluation of increased confusion, hypotension, decreased PO intake for the last 1 week. reports brain fog and forgetfullness. hx UTI with similar presentation in the past. hx swartz sensitive E coli in April. given 750 cc IVF at the office and 1g rocephin via 24g PIV started at the cancer center. BP there 92/58 w/ HR 118. VS improved on arrival. pale and chronically ill appearing. Plan: labs, CXR, viral studies, straight cath, EKG, IVF ordered Medications Administered Discontinued Medications Generic Name Dose Route Start Last Admin Trade Name Freq PRN Reason Stop Dose Admin Albuterol Sulfate 10 mg 06/18/24 17:51 06/18/24 19:21 Albuterol Sulfate (0.083%) 2.5 Mg/3 Ml Vial.Neb INHALE 06/18/24 17:52 10 mg ONCE ONE Administration Lactated Ringer's 1,000 mls @ 999 mls/hr 06/18/24 17:00 06/18/24 17:36 Lr IV 06/18/24 18:00 999 mls/hr .Q1H1M ENE Administration Calcium Gluconate 2 gm in 100 mls @ 50 mls/hr 06/18/24 17:51 06/18/24 21:32 Calcium Gluconate IV 06/18/24 19:50 Infused ONCE ONE Infusion Sodium Zirconium Cyclosilicate 10 gm 06/18/24 17:55 06/18/24 18:25 Sodium Zirconium Cyclosilicate 10 Gm Powd.Pack PO 06/18/24 17:56 10 gm ONCE ONE Administration Medical Decision Making Medical Decision Making MDM Narrative: - patient already received 1 L of normal saline and ceftriaxone. Here in the emergency room, patient is receiving a 2 L of lactated Ringer's. - my interpretation of EKG: Normal sinus rhythm, heart rate 97, no ST segment depression or elevation, no T-wave inversion, QTC 447, no peaked T-waves - Patient's blood pressure in the 120 systolic. - All of patient's labs pending, normal vitals, white blood cell count within normal limits, no fever, sepsis is not suspected at this time, 17:55 - patient's potassium is 5.9, patient received calcium gluconate, albuerol neb treatment , [facility] - Urinalysis is positive for UTI. Patient has already been medicated with IV fluids and ceftriaxone. - Repeat labs show an improved potassium, bicarb - I discussed with the patient that she does have a UTI, patient has already been treated with IV fluids and ceftriaxone. I offered to the patient admission since she seems to be weak. However, patient and her thing that the patient would do better at home. Patient states that she is very good at taking her medications and drinking fluids with electrolytes. Patient will like to stay out of hospital if possible. - Patient and feel well going home. Patient is on her baseline O2 for COPD asthma, patient's blood pressure improved to 121/82, heart rate 97 within normal limits. Is reasonable to try sending the patient home. Differential Diagnosis Differential Diagnoses: The differential diagnosis associated with the presentation includes ( UTI, pneumonia, dehydration, hyperkalemia) Admission/Observation Consideration of admission/observation: Escalation of care including admission/observation considered ( admission was offered, patient would prefer to be discharged home) Lab Data MDM Lab Attestation statement: I reviewed the patient's lab results. 06/18/24 18:01 06/18/24 18:01 Labs: Lab Results 06/18/24 06/18/24 06/18/24 Range/Units 18:01 18:10 18:56 WBC 8.0 (4.8-10.8) X10*3/uL RBC 5.03 (4.20-5.50) X10*6/uL Hgb 15.0 (12.0-16.0) g/dl Hct 46.3 (37.0-47.0) % MCV 92.0 (80.0-98.0) fL MCH 29.8 (27.0-33.0) pg MCHC 32.4 (31.0-35.0) g/dl RDW 14.2 (11.0-16.0) % Plt Count 241 D (160-400) X10*3/uL MPV 10.1 (9.4-12.3) fL Immature Gran % (Auto) 0.4 (0.0-0.4) % Neut % (Auto) 83.7 H (45-73) % Lymph % (Auto) 9.5 L (20-40) % Pierce % (Auto) 5.0 (2-11) % Eos % (Auto) 0.5 (0-4) % Baso % (Auto) 0.9 (0-2) % Lymph # (Auto) 0.8 L (1.2-4.9) X10*3/uL Pierce # (Auto) 0.4 (0.1-1.2) X10*3/uL Eos # (Auto) 0.0 (0.0-0.4) X10*3/uL Baso # (Auto) 0.1 (0.0-0.2) X10*3/uL Abs Immat Gran (auto) 0.03 (0.00-0.03) X10*3/uL Absolute Neuts (auto) 6.7 (2.0-8.3) x10*3/uL Absolute Nucleated RBC 0.000 (0.0-0.012) X10*3/uL Nucleated RBC % (auto) 0.0 (0.0-0.2) /100WBC Hold Blue Top SEE NOTE Sodium 141 (135-145) mmol/L Potassium 4.6 D (3.3-5.1) mmol/L Chloride 101 (96-108) mmol/L Carbon Dioxide 29 (22-29) mmol/L Anion Gap 16 (12-20) BUN 19 H (9-16) mg/dL Creatinine 0.91 (0.5-1.4) mg/dL Estim Creat Clear Calc 46.8 Estimated GFR > 60 Random Glucose 157 H (60-115) mg/dL Lactic Acid 2.0 (0.5-2.0) mmol/L Calcium 9.4 D (8.4-10.2) mg/dL Magnesium 1.6 (1.6-2.6) mg/dL Total Bilirubin 0.3 (0.0-1.0) mg/dL Direct Bilirubin 0.1 (0.0-0.5) mg/dL AST 53 H (5-31) U/L ALT 40 H (0-31) U/L Alkaline Phosphatase 74 (39-117) U/L Total Protein 6.9 (6.5-8.0) g/dL Albumin 3.6 (3.5-5.0) g/dL TSH 4.06 H (0.32-4.0) uIU/mL Free T4 0.75 (0.71-1.85) ng/dL Urine Color Dark Yellow Urine Appearance Cloudy Urine pH 5.5 (5.0-9.0) Ur Specific [place] 1.025 (1.005-1.025) Urine Protein 100 (2+) H (Neg-Trace) mg/dL Urine Glucose (UA) Negative (Negative) mg/dL Urine Ketones Trace (Negative) mg/dL Urine Blood Negative (Negative) Urine Nitrite Negative (Negative) Ur Leukocyte Esterase Moderate (2+) H (Negative) Urine RBC 3-5 H (0-2) /HPF Urine WBC >50 H (0-5) /HPF Ur Squamous Epith Cells 6-10 (0-2) /HPF Urine Bacteria None Seen (None Seen) Hyaline Casts 6-10 (0-2) /LPF COVID-19 (DENISE) Negative (Negative) COVID-19 Clin Com See Note Influenza Type A (PCR) NEGATIVE (Negative) Influenza Type B (PCR) NEGATIVE (Negative) RSV RNA Qual (PCR) NEGATIVE (Negative) SARS-CoV-2 RNA (RT-PCR) NEGATIVE (Negative) Independent Interpretation I performed an independent interpretation of an: Plain X-Ray Radiology Impression Discussion of test interpretation with radiology: I have reviewed the radiologist's reading. Radiologist Impression: The lungs are well expanded. No focal infiltrate, effusion, edema, or pneumothorax. Chain staple line in the right hilar region again noted. Cardiac and mediastinal silhouettes are within normal limits for technique. No acute bony abnormality seen. XR/XR chest 1V IMPRESSION: No evidence of acute disease. Critical Care Time Critical Care Time Critical Care Time: Yes Total Critical Care Time: 45 Attestation: I have personally provided critical care time. Time includes review of lab data, radiology results, discussion with consultants, and monitoring for potential decompensation. Intervention performed as documented. Discharge Plan Discharge Clinical Impression: Acute UTI, Acute dehydration, Acute hyperkalemia Patient Disposition: Home, Self-Care Instructions: Dehydration (ED), Urinary Tract Infection in Women (ED), Hyperkalemia (ED) Additional Instructions: Please follow-up with your primary care physician tomorrow. If you have any worsening or new symptoms, please return to the emergency room or call 911 Prescriptions: New cefuroxime axetil 250 mg tablet 250 mg PO BID Qty: 14 0RF No Action cholecalciferol (vitamin D3) 50 mcg (2,000 unit) capsule 50 mcg PO DAILY 90 Days Qty: 90 3RF nifedipine 30 mg tablet extended release 30 mg PO DAILY Qty: 90 3RF atorvastatin 10 mg tablet 10 mg PO DAILY Qty: 90 2RF gabapentin 400 mg capsule 400 mg PO TID Qty: 270 1RF clonazepam 0.5 mg tablet 0.5 mg PO TID PRN (Reason: anxiety) 30 Days Qty: 90 0RF amitriptyline 75 mg tablet 75 mg PO DAILY Qty: 90 1RF sucralfate [Carafate] 100 mg/mL suspension 10 ml PO BID PRN (Reason: GERD symptoms) 30 Days Qty: 473 0RF Rx Instructions: swish in mouth and swallow; use after food/drink Incruse Ellipta 62.5 mcg/actuation blister with device 1 inh inhalation DAILY bupropion HCl 150 mg tablet extended release 24 hr 150 mg PO DAILY Magic Mouthwash Diphen/Lido/Antacid 1:1:1 240 mL Suspension 10 ml PO QID Qty: 240 4RF Rx Instructions: Lidocaine Viscous 2 % 80mL; diphenhydramine 12.5 mg/5 mL 80mL; aluminum-mag hydrox-simeth [id number]/5mL 80mL levothyroxine [Synthroid] 25 mcg Tablet 25 mcg PO DAILY Qty: 30 1RF Lenvima 10 mg/day (10 mg x 1) Capsule 20 mg PO DAILY Qty: 60 4RF Rx Instructions: 04/23/24 - reduce daily dose to Lenvima 10 mg PO Daily lidocaine HCl [Lidocaine Viscous] 2 % solution topical QID lidocaine HCl [Lidocaine Viscous] 2 % Solution 1 appl MUCOUS MEMBRANE QID Qty: 300 5RF nitrofurantoin monohyd/m-cryst [Macrobid] 100 mg Capsule 100 mg PO Q12H Qty: 14 2RF Rx Instructions: must administer with a meal/food levofloxacin 500 mg Tablet 500 mg PO DAILY Qty: 10 0RF nystatin 100,000 unit/mL Suspension 100,000 unit PO BID-TID Qty: 300 3RF Rx Instructions: 10 mL p.o. swish and swallow t.i.d. administer 1/2 of dose in each side of the mouth nystatin 100,000 unit/mL suspension 10 ml buccal TID PRN (Reason: thrush) Qty: 300 3RF Rx Instructions: swish 1/2 of dose in each side of the mouth for up to 5 minutes, then spit out the medicine pantoprazole 40 mg tablet,delayed release (DR/EC) 40 mg PO DAILY Qty: 90 1RF Eliquis 5 mg Tablet 5 mg PO BID Qty: 60 6RF cefuroxime axetil 250 mg Tablet 250 mg PO BID Qty: 4 0RF doxycycline monohydrate 100 mg Capsule 100 mg PO BID Qty: 4 0RF Eliquis 5 mg Tablet 5 mg PO BID Qty: 120 0RF Rx Instructions: Take Eliquis 5 mg 2 tablets (10mg) twice daily for 2 more days end date 03/05 Then from 03/06 take Eliquis 5 mg 1 tablet twice daily albuterol sulfate 90 mcg/actuation HFA aerosol inhaler 2 puff inhalation QID PRN (Reason: shortness of breath or wheezing) Qty: 8.5 6RF ipratropium-albuterol 0.5 mg-3 mg(2.5 mg base)/3 mL solution for nebulization 3 ml inhalation Q6H PRN (Reason: shortness of breath or wheezing) 30 Days Qty: 180 6RF dronabinol 5 mg capsule 5 mg PO BID Qty: 60 3RF Rx Instructions: administer before lunch and evening meal/dinner Print Language: Greenlandic
--- NOTE | 2024-06-18 16:48 | ECG_ITS ---
Test Reason : HYPOTENSION Blood Pressure : / mmHG Vent. Rate : 097 BPM Atrial Rate : 097 BPM P-R Int : 136 ms QRS Dur : 078 ms QT Int : 352 ms P-R-T Axes : 064 007 134 degrees QTc Int : 447 ms Normal sinus rhythm Possible Left atrial enlargement ST & T wave abnormality, consider anterolateral ischemia Abnormal ECG When compared with ECG of 27-FEB-2024 11:41, T wave inversion more evident in Anterolateral leads Referred By: Radha Nguyen Electronically Signed By:TERRI SCHAEFFER
[2024-06-18 17:36] VITALS: BP 121/82; PULSE 98; RESP 16; O2SAT 100
[2024-06-18] MEDS: Lactated Ringers 1,000 ML 999 ML IV (17:36)
[2024-06-18 18:10] LABS: MANUAL DIFF FLAG NO
[2024-06-18 18:23] LABS: Basophils Absolute Auto 0.1 X10*3/uL (0.0-0.2); Basophils Percent Auto 0.9 % (0-2); Eosinophils Percent Auto 0.5 % (0-4); Hematocrit 46.3 % (37.0-47.0); Imm Gran Abs Auto 0.03 X10*3/uL (0.00-0.03); Imm Gran Pct Auto 0.4 % (0.0-0.4); Lymphocytes Absolute Auto 0.8 X10*3/uL (1.2-4.9); Lymphocytes Percent Auto 9.5 % (20-40); Mean Corpuscular HGB Conc 32.4 g/dl (31.0-35.0); Mean Corpuscular Hemoglobin 29.8 pg (27.0-33.0); Mean Platelet Volume 10.1 fL (9.4-12.3); Monocytes Absolute Auto 0.4 X10*3/uL (0.1-1.2); Neutrophils Absolute Auto 6.7 x10*3/uL (2.0-8.3); Neutrophils Percent Auto 83.7 % (45-73); Platelet Count 241 X10*3/uL (160-400); Red Blood Count 5.03 X10*6/uL (4.20-5.50); Red Cell Distribution Width 14.2 % (11.0-16.0)
[2024-06-18] MEDS: Sodium Zirconium Cyclosilicate 10 GM POWD.PACK PO (18:25)
[2024-06-18] MEDS: Calcium Gluconate/NaCl,Iso-Osm 2 GM/100 ML PLAST..BAG IV (18:25)
[2024-06-18 18:34] LABS: Alanine Aminotransferase 40 U/L (0-31); Albumin Level 3.6 g/dL (3.5-5.0); Alkaline Phosphatase 74 U/L (39-117); Anion Gap 16 (12-20); Aspartate Amino Transferase 53 U/L (5-31); Bilirubin Direct 0.1 mg/dL (0.0-0.5); Bilirubin Total 0.3 mg/dL (0.0-1.0); Blood Urea Nitrogen 19 mg/dL (9-16); COVID-19 Test Negative (Negative); Calcium 9.4 mg/dL (8.4-10.2); Carbon Dioxide 29 mmol/L (22-29); Chloride 101 mmol/L (96-108); Creatinine Clr Calc Pharmacy 46.8; Estimated Glomerular Filt Rate > 60; Glucose Random 157 mg/dL (60-115); IDNOW Serial# 08D9AD1C; Magnesium 1.6 mg/dL (1.6-2.6); Potassium 4.6 mmol/L (3.3-5.1); Sodium 141 mmol/L (135-145); Total Protein 6.9 g/dL (6.5-8.0)
--- NOTE | 2024-06-18 18:50 | PC.NURSE ---
Assumed care of pt. Assisted outgoing RN with straight catheterization for urine sample from pt. Pt currently endorsing no acute distress at this time. Continuing with plan of care.
[2024-06-18 18:54] LABS: TSH reflex Free T4 4.06 uIU/mL (0.32-4.0)
[2024-06-18 18:57] LABS: Influenza A PCR NEGATIVE (Negative); Influenza B PCR NEGATIVE (Negative); Resp Syncy Virus RNA Qual PCR NEGATIVE (Negative); SARS COV2 PCR INHOUSE NEGATIVE (Negative)
[2024-06-18 19:07] LABS: Appearance Urine Cloudy; Color Urine Dark Yellow; Glucose Urine UA Negative (Negative); Leukocyte Esterase Urine Moderate (2+) (Negative); Nitrite Urine Negative (Negative); PH 5.5 (5.0-9.0); Specific Gravity - Urine 1.025 (1.005-1.025); UMIC TRIGGER UACC YES; Urine Blood Negative (Negative); Urine Ketones Trace mg/dL (Negative); Urine Protein 100 (2+) mg/dL (Neg-Trace)
[2024-06-18] MEDS: Albuterol Sulfate (0.083%) 2.5 MG/3 ML VIAL.NEB 10 MG INHALE (19:21)
[2024-06-18 19:25] VITALS: PULSE 97; RESP 10; O2SAT 100
[2024-06-18 19:26] LABS: Free T4 (Free Thyroxine) 0.75 ng/dL (0.71-1.85)
[2024-06-18 19:39] LABS: Bacteria Urine None Seen (None Seen); UACC Culture Trigger YES; WBC Urine >50 /HPF (0-5)
[2024-06-18 22:42] VITALS: BP 109/70; PULSE 100; RESP 18; TEMP 37.1; O2SAT 99
== END 2024-06-18 22:42 | disposition home or self-care (01) ==
PROVIDERS: Physician Assistant; Emergency Provider Emergency Medicine; PCP Internal Medicine
DX: N39.0 Urinary tract infection, site not specified (principal); E86.0 Dehydration; E87.5 Hyperkalemia; R79.89 Other specified abnormal findings of blood chemistry; I95.9 Hypotension, unspecified; Z03.818 Encounter for observation for suspected exposure to other biological agents ruled out; Z79.899 Other long term (current) drug therapy
CPT/HCPCS: 0241U; 36415; 51701; 71045; 80048; 80076; 81001; 81003; 83605; 83735; 84439; 84443; 85025; 87040; 87086; 87635; 93005; 94640; 96361; 96374; 99285; J0613; J7120

== ENCOUNTER 2024-07-01 11:14 | Inpatient (IN) | payer OTHER, SELFPAY ==
[2024-07-01] VITALS (17 sets, daily range): BP systolic 86–150; BP diastolic 47–77; PULSE 54–127; RESP 10–23; TEMP 35.9–39.8; O2SAT 94–100; BMI 18.6
--- NOTE | ~2024-07-01 | CT_ITS ---
EXAMINATION: CT HEAD WITHOUT CONTRAST CLINICAL INFORMATION: Change in mental status. COMPARISON: CT head dated March 19, 2024. TECHNIQUE: Contiguous axial imaging was performed from the skull base to vertex without intravenous administration of contrast. This CT examination was performed using dose optimization techniques as appropriate, variously including the following: *Automated exposure control *Adjustment of mA and/or kV according to patient size (this includes techniques or standardized protocols for targeted exams where dose is matched to indication/reason for exam; i.e. extremities or head) *Use of iterative reconstruction technique DLP: 1301 mGy-cm FINDINGS: There is no acute intracranial hemorrhage. There is no evidence of acute/subacute cerebral or cerebellar infarction. There is mild microvascular ischemic change. There is no midline shift or mass effect. There is no extra-axial fluid collection. The ventricles are normal in size. The orbits are symmetric and within normal limits. The calvarium is intact. The mastoid air cells are clear. There is aerated mucosal disease within the right maxillary sinus. There is right anterior ethmoid air cell mucosal thickening. CT/CT head/brain wo IV con IMPRESSION: No acute intracranial pathology. Electronically signed by: Patrick Fernandez DO 07/01/2024 01:43 PM EDT
--- NOTE | ~2024-07-01 | CT_ITS ---
EXAMINATION: CTA CHEST PE PROTOCOL CT ABDOMEN, AND PELVIS WITH CONTRAST CLINICAL INFORMATION: Shortness of breath. Hypoxia. Fever. Altered mental status. UTI. COMPARISON: CT scans dating between May 15, 2024 and September 04, 2019. TECHNIQUE: Multidetector volumetric CT imaging of the chest, abdomen, and pelvis was obtained after the administration of 85 mL of Omnipaque 350 intravenous contrast without immediate adverse reactions. Axial MIP volume rendering provided. Sagittal and coronal reformatted images were obtained. This CT examination was performed using dose optimization techniques as appropriate, variously including the following: *Automated exposure control *Adjustment of mA and/or kV according to patient size (this includes techniques or standardized protocols for targeted exams where dose is matched to indication/reason for exam; i.e. extremities or head) *Use of iterative reconstruction technique DLP: 1301 mGy-cm FINDINGS: QUALITY OF STUDY/CONTRAST BOLUS: Satisfactory. PULMONARY ARTERIES: No evidence of pulmonary embolism. LUNGS: Chain sutures at the periphery of the right middle lobe with associated cavitary and/or cystic bronchiectatic changes (images 164 through 245, series 21), grossly similar compared with May 15, 2024. Dependent interstitial and airspace disease involving the right upper and right lower lobes, new or significantly worse. Small foci of of left upper lobe and left lower lobe tree in bud densities laterally, new or worse. Mild bilateral chronic interstitial fibrotic changes with a peripheral predominance. Mild emphysema. Patent central bronchi. MEDIASTINUM: Mild shift of the mediastinum toward the right, likely related to partial right lung resection. Subcentimeter right hilar nodes. Mild induration of mediastinal fat. Heart normal in size. No pericardial effusion. CORONARY ARTERY CALCIFICATION: Moderate. PLEURA: There is no pleural effusion. No pleural mass or thickening. AXILLA: No lymphadenopathy by size criteria. LIVER, GALLBLADDER, AND BILIARY TREE: 2.8 cm, round, hypodense, segment 7 hepatic lesion which appears to demonstrate wall irregularity as well as a mural nodule (image 8, series 27). This appears similar compared with May 15, 2024, and is probably decreased in size compared with February 27, 2024, at which time it measured approximately 3.5 cm, by my measurements. The liver otherwise appears unremarkable in size, shape, and attenuation. No biliary ductal dilatation is appreciated. Mildly distended gallbladder measuring approximately 11 cm in length by 5 cm in diameter. Mild, diffuse, nonspecific gallbladder wall thickening. No evidence of pericholecystic inflammatory change. PANCREAS: Unremarkable SPLEEN: Unremarkable ADRENAL GLANDS: Unremarkable KIDNEYS AND URETERS: Status post left nephrectomy. The right kidney appears unremarkable in size, shape, and attenuation. No hydronephrosis, hydroureter, or calculi seen. BLADDER: Tip and balloon of Pena catheter lie within the urinary bladder lumen, which is distended. GASTROINTESTINAL TRACT: Unremarkable appearance of the stomach. Multiple loops of mildly dilated small and large bowel containing air-fluid levels. Air and stool throughout the colon and rectal vault. Probable rectal probe. ABDOMINAL WALL: No significant hernia is appreciated. LYMPH NODES: No evidence of adenopathy by size criteria. VASCULAR: No evidence of aneurysm. Aortoiliac calcification. Soft plaque within the descending thoracic aorta. PELVIC VISCERA: Suspect fluid within the endometrial cavity. OSSEOUS STRUCTURES: Question vague, poorly circumscribed lytic lesion involving the inferior aspect of the L1 vertebral body. Degenerative changes of the lumbar spine, with lumbar levocurvature. CT/CT abdomen pelvis w IV con IMPRESSION: No evidence of pulmonary embolism. Chain sutures at the periphery of the right middle lobe with associated cavitary and/or cystic bronchiectatic changes, grossly similar compared with May 15, 2024. Recommend correlation with surgical history. Dependent interstitial and airspace disease involving the right upper and right lower lobes, new or significantly worse compared with May 15, 2024. Differential diagnosis includes, but is not limited to, pneumonia. Small foci of of left upper lobe and left lower lobe tree in bud densities laterally, new or worse, nonspecific, possibly inflammatory/infectious. Subcentimeter right hilar nodes. Mild induration of mediastinal fat. 2.8 cm, round, hypodense, segment 7 hepatic lesion which appears to demonstrate wall irregularity as well as a mural nodule, similar compared with May 15, 2024, and probably decreased in size compared with February 27, 2024. Mildly distended gallbladder measuring approximately 11 cm in length by 5 cm in diameter. Mild, diffuse, nonspecific gallbladder wall thickening. No evidence of pericholecystic inflammatory change. Suspect fluid within the endometrial cavity. This is an abnormal finding in a postmenopausal woman. Recommend gynecological evaluation. Question vague, poorly circumscribed lytic lesion involving the inferior aspect of the L1 vertebral body. Neoplasm cannot be excluded (for example, metastatic disease). Status post left nephrectomy. Tip and balloon of Pena catheter lie within the urinary bladder lumen, which is distended. Additional findings as above. VTE: Negative. Electronically signed by: Anthony Díaz MD 07/01/2024 02:16 PM EDT RP
--- NOTE | 2024-07-01 11:20 | ED_ITS ---
HPI - General Adult General Chief complaint: Fever Stated complaint: LETHARGY,RECENT UTI,FEVER,SOB,H/O STAGE 4 CA Time Seen by Provider: 07/01/24 11:15 Source: patient and EMS Mode of arrival: EMS Limitations: altered mental status History of Present Illness ED Provider: Yesenia COLLAZO HPI narrative: 69-year-old female history of COPD, kidney cancer with metastasis to the liver, recent diagnosis of UTI, pulmonary nodules, depression, hyperlipidemia, anxiety, hypertension, GERD presenting with altered mental status, nausea, vomiting, was recently diagnosed with UTI and has been taking antibiotics for this despite this has been having worsening altered mental status. According to EMS daughter reported that she has been febrile at home, also has been short of breath she typically wears 2 L via nasal cannula at all times however at this time she is on 4-5 liters/minute nasal cannula. Patient is very confused and obtunded on arrival only oriented to person not place time or situation. Very difficult to obtain accurate history and review of systems I initially saw patient off the ambulance stretcher as there were no beds in the department. slight delay in obtaining labs, and hanging meds due to department capacity issues. Related Data Home Medications ?Medication ?Instructions ?Recorded ?Confirmed bupropion HCl 150 mg 24 hr tablet, 150 mg PO DAILY 10/06/23 07/01/24 extended release Magic Mouthwash 10 ml PO QID PRN sores 07/01/24 07/01/24 Diphen/Lido/Antacid 1:1:1 240 mL suspension albuterol sulfate 90 mcg/actuation 2 puff inhalation DAILY PRN 07/01/24 07/01/24 aerosol inhaler shortness of breath or wheezing levothyroxine 25 mcg tablet 25 mcg PO DAILY@0600 07/01/24 07/01/24 (Synthroid) lidocaine HCl 2 % mucosal solution 1 appl mucous membrane QID PRN 07/01/24 07/01/24 (Lidocaine Viscous) mouth sores ondansetron 8 mg disintegrating 8 mg PO Q8H PRN Nausea And Vomiting 07/01/24 07/01/24 tablet sennosides 8.6 mg tablet (senna) 8.6 mg PO BID PRN constipation 07/01/24 07/01/24 Previous Rx's ?Medication ?Instructions ?Recorded nifedipine 30 mg tablet,extended 30 mg PO DAILY #90 tabs 02/08/24 release lenvatinib 10 mg/day (10 mg x 1) 20 mg (2 x 10 mg/day (10 mg x 1)) 03/29/24 capsule (Lenvima) PO DAILY #60 caps atorvastatin 10 mg tablet 10 mg PO DAILY #90 tabs 04/03/24 gabapentin 400 mg capsule 400 mg PO TID #270 caps 04/23/24 nystatin 100,000 unit/mL oral 10 ml buccal TID PRN thrush #300 mL 04/23/24 suspension amitriptyline 75 mg tablet 75 mg PO DAILY #90 tabs 05/01/24 pantoprazole 40 mg tablet,delayed 40 mg PO DAILY #90 tabs 05/31/24 release apixaban 5 mg tablet (Eliquis) 5 mg PO BID #60 tabs 06/06/24 sucralfate 100 mg/mL oral 10 ml PO BID PRN GERD symptoms 30 06/18/24 suspension (Carafate) days #473 mL clonazepam 0.5 mg tablet 0.5 mg PO TID PRN anxiety 30 days 06/21/24 #90 tabs cholecalciferol (vitamin D3) 50 50 mcg PO DAILY 90 days #90 caps 06/30/24 mcg (2,000 unit) capsule Allergies Allergy/AdvReac Type Severity Reaction Status Date / Time Sulfa (Sulfonamide Allergy Severe ANAPHYLAXIS Verified 07/01/24 12:01 Antibiotics) Penicillins Allergy Intermediate RASH Verified 07/01/24 12:02 aspirin [ASA] AdvReac Severe severe Verified 07/01/24 12:02 stomach pain NSAIDS (Non-Steroidal AdvReac Severe severe Verified 07/01/24 12:02 Anti-Inflamma stomach pain codeine [Codeine] AdvReac Intermediate NAUSEA & Verified 07/01/24 12:02 VOMITING Review of Systems 2 Review of Systems: Yes all other systems are reviewed and are negative PMFSH Past Medical History Attestation statement: The following information was validated with the patient. Source: old records reviewed and nursing notes reviewed Medical History COPD (chronic obstructive pulmonary disease) Liver lesion Right lower lobe lung mass Post-operative nausea and vomiting Dry eye COVID-19 COPD (chronic obstructive pulmonary disease) Malignant neoplasm of left kidney Vitamin D deficiency Depression Primary osteoarthritis of knees, bilateral Pure hypercholesterolemia Elevated C-reactive protein (CRP) Palpitations Constipation Obstructive sleep apnea Anxiety Benign essential hypertension Renal cell carcinoma of left kidney Oral thrush Lumbar degenerative disc disease Status post fall Right foot pain Chronic allergic bronchitis GERD (gastroesophageal reflux disease) Surgical History Metastatic renal cell carcinoma to lung H/O kidney removal Hx of oral surgery Hx of tonsillectomy Pulmonary nodule 1 cm or greater in diameter History of nephrectomy Family History Family History Father Hypertension CVD (cardiovascular disease) Cancer Mother Hypertension Substance abuse Other Mental health problem Social History Social History Household Members: Spouse and Family Household Members Other:: and brother and sister Housing: House Are you a primary care support representative to a significant other at home: No Do you presently have visiting nurse or other home services: No Alcohol intake: never Comment: COUNTS CORRECT Patient Tobacco Use Status: Current everyday Tobacco user Tobacco use type: Cigarette Cigarette Packs Per Day: 1.5 Years Smoked: 30 e-Cigarette/Vaping Use: Currently Using Second Hand Smoke Exposure: No Advance Directives: Yes Advance Directives on File: Yes Advance Directives Date on File: 11/29/23 service: No Current occupational status: disabled Cognitive needs: No Hearing needs: No Vision needs: No Physical Exam ED Vital Signs: Vital Signs - 24 hr 07/01/24 11:57 07/01/24 13:29 07/01/24 13:58 Temperature 103.6 F H 100.8 F H 99.9 F Pulse Rate 127 H 104 H 96 Respiratory Rate 16 13 12 Blood Pressure 136/77 97/54 L 98/48 L Pulse Oximetry 99 100 100 Oxygen Delivery Method Nasal Cannula Nasal Cannula Nasal Cannula Oxygen Flow Rate 2 2 07/01/24 14:07 07/01/24 14:26 07/01/24 14:44 Temperature 99.7 F 99.1 F Pulse Rate 97 54 92 Respiratory Rate 18 15 12 Blood Pressure 86/47 L 111/60 96/53 L Pulse Oximetry 100 100 Oxygen Delivery Method Nasal Cannula Nasal Cannula Oxygen Flow Rate 2 2 BMI result Body Mass Index 18.6 Tachycardia. Appearance: Alert.? Patient appears obtunded only oriented to person not place, time or situation.? Patient cachectic appearing Head: Normocephalic, atraumatic, no step-offs or deformities Eyes: Pupils equal, round and reactive to light.? ENT: Pharynx normal.? Neck: Normal inspection.? Neck supple.? CVS: Rapid rate normal rhythm likely sinus tachycardia with a heart rate around 130-140 beats per minute. Respiratory: No respiratory distress.? Breath sounds diminished bl .? Abdomen: Soft and nontender.? Skin: Skin warm and dry.? Normal skin color.? Normal skin turgor.? Extremities: No lower extremity edema.? No calf ttp. 5/5 strength to bilateral upper and lower extremities Back: No midline tenderness, no C-spine tenderness, full range of motion, no CVA tenderness bilaterally Neuro: Oriented only to person, not place time or situation Course Reevaluation(s) Reevaluation #1: CBC unremarkable. Chemistry no acute findings needing intervention she does however have a elevated lactic acid 2.7, patient receiving IV hydration as well as antibiotics. Will repeat lactic acid until normal. Time: 12:39 Reevaluation #2: UA without infection. CTA with no PE, CT scan however is concerning for interstitial and airspace disease involving the right upper and lower lobes concerning for pneumonia. Noted to have fluid within the endometrial cavity will make her aware of this and will have her follow-up with OBGYN lytic lesion also noted will make her aware of this concerning for possible metastatic disease can not be excluded. Time: 14:27 Reevaluation #3: Plan hospital admission Time: 14:29 Medications Administered Generic Name Dose Route Start Last Admin Trade Name Freq PRN Reason Stop Dose Admin Albumin Human 100 mls @ 133.333 mls/hr 07/01/24 15:00 07/01/24 15:00 Kedbumin 25 % IV 07/01/24 16:44 133.33 mls/hr Q1H ENE Administration Discontinued Medications Generic Name Dose Route Start Last Admin Trade Name Freq PRN Reason Stop Dose Admin Acetaminophen 650 mg 07/01/24 11:48 07/01/24 11:57 Acetaminophen Supp 650 Mg Supp.Rect AR 07/01/24 11:49 650 mg ONCE ONE Administration Ceftriaxone Sodium 1 gm/ 50 mls @ 100 mls/hr 07/01/24 11:16 07/01/24 12:30 Sodium Chloride IV 07/01/24 11:45 Infused ONCE ONE Infusion Sodium Chloride 1,428.81 mls @ 1,428.81 mls/hr 07/01/24 12:08 07/01/24 13:58 Ns 30 ml/kg infuse over 1 hr (1428.81 ml) 07/01/24 13:07 Infused IV Infusion .Q1H STA Sodium Chloride 500 mls @ 500 mls/hr 07/01/24 14:15 07/01/24 14:44 Ns IV 07/01/24 15:14 Infused .Q1H ENE Infusion Midodrine 5 mg 07/01/24 14:09 07/01/24 14:15 Midodrine Hcl 5 Mg Tablet PO 07/01/24 14:10 5 mg ONCE ONE Administration Medical Decision Making Medical Decision Making [facility] Narrative: 1123 61-year-old female presents with altered mental status recent UTI, also having nausea and vomiting. Very poor historian and confused. Physical exam patient oriented only to person. Not place time or situation. She is tachycardic with heart rate around 130-140 beats per minute. Breathsounds diminished b/l. Cachectic appearing. No abdominal tenderness on exam. Physical exam concerning for worsening UTI versus encephalopathy. Will rule out metabolic derangements. Less likely meningitis encephalitis intracranial hemorrhage, stroke, posterior stroke. Hypoxia ? viral illness vs bna vs worsening chronic lung disease. Less likely PE Plan labs, imaging, urine, viral test Differential Diagnosis Differential Diagnoses: The differential diagnosis associated with the presentation includes (Physical exam concerning for worsening UTI versus encephalopathy. Will rule out metabolic derangements. Less likely meningitis encephalitis intracranial hemorrhage, stroke, posterior stroke Hypoxia ? viral illness vs bna vs worsening chronic lung disease. Less likely PE ) Admission/Observation Consideration of admission/observation: Escalation of care including admission/observation considered (likely ) Lab Data [facility] Lab Attestation statement: I reviewed the patient's lab results. 07/01/24 11:51 07/01/24 11:51 Labs: Lab Results 07/01/24 07/01/24 07/01/24 Range/Units 11:51 13:38 13:41 WBC 9.9 (4.8-10.8) X10*3/uL RBC 5.07 (4.20-5.50) X10*6/uL Hgb 15.0 (12.0-16.0) g/dl Hct 46.9 (37.0-47.0) % MCV 92.5 (80.0-98.0) fL MCH 29.6 (27.0-33.0) pg MCHC 32.0 (31.0-35.0) g/dl RDW 14.1 (11.0-16.0) % Plt Count 243 (160-400) X10*3/uL MPV 10.0 (9.4-12.3) fL Immature Gran % (Auto) Cancelled Neut % (Auto) Cancelled Lymph % (Auto) Cancelled Douglas % (Auto) Cancelled Eos % (Auto) Cancelled Baso % (Auto) Cancelled Lymph # (Auto) Cancelled Douglas # (Auto) Cancelled Eos # (Auto) Cancelled Baso # (Auto) Cancelled Abs Immat Gran (auto) Cancelled Absolute Neuts (auto) Cancelled Absolute Nucleated RBC 0.000 (0.0-0.012) X10*3/uL Nucleated RBC % (auto) 0.0 (0.0-0.2) /100WBC Neutrophils % (Manual) 75 H (45-73) % Band Neutrophils % 20 H (3-5) % Lymphocytes % (Manual) 1 L (20-40) % Monocytes % (Manual) 3 (2-11) % Eosinophils % (Manual) 1 (0-4) % Abs Neuts (Manual) 9.4 H (2.0-8.3) X10*3/uL Lymphocytes # (Manual) 0.1 L (1.2-4.9) X10*3/uL Monocytes # (Manual) 0.3 (0.1-1.2) X10*3/uL Eosinophils # (Manual) 0.1 (0.0-0.4) X10*3/uL Platelet Estimate NORMAL (NORMAL) Plt Morphology Comment NORMAL RBC Morphology NORMAL Sodium 137 (135-145) mmol/L Potassium 4.4 (3.3-5.1) mmol/L Chloride 96 (96-108) mmol/L Carbon Dioxide 31 H (22-29) mmol/L Anion Gap 14 (12-20) BUN 17 H (9-16) mg/dL Creatinine 0.97 (0.5-1.4) mg/dL Estim Creat Clear Calc 41.7 Estimated GFR 57 Random Glucose 78 (60-115) mg/dL Lactic Acid 2.7 H* (0.5-2.0) mmol/L Lactic Acid F/U @ 2Hr (0.5-2.0) mmol/L Calcium 9.3 (8.4-10.2) mg/dL Magnesium 1.5 L (1.6-2.6) mg/dL Total Bilirubin 0.9 (0.0-1.0) mg/dL AST 32 H (5-31) U/L ALT 21 (0-31) U/L Alkaline Phosphatase 80 (39-117) U/L Total Protein 6.8 (6.5-8.0) g/dL Albumin 3.5 (3.5-5.0) g/dL Urine Color Dark Yellow Urine Appearance Clear Urine pH 7.0 (5.0-9.0) Ur Specific M[place]ester 1.015 (1.005-1.025) Urine Protein Trace (Neg-Trace) mg/dL Urine Glucose (UA) Negative (Negative) mg/dL Urine Ketones Negative (Negative) mg/dL Urine Blood Negative (Negative) Urine Nitrite Negative (Negative) Ur Leukocyte Esterase Small (1+) H (Negative) Urine RBC 0-2 (0-2) /HPF Urine WBC >50 H (0-5) /HPF Ur Squamous Epith Cells 3-5 (0-2) /HPF Urine Bacteria None Seen (None Seen) Hyaline Casts 0-2 (0-2) /LPF Urine Opiates Screen Not Detected (Not Detect) Ur Buprenorphine Scrn Not Detected (Not Detect) ng/mL Ur Oxycodone Screen Positive H (Not Detect) ng/mL Urine Methadone Screen Not Detected (Not Detect) ng/mL Urine Fentanyl Screen Not Detected (Not Detect) Ur Barbiturates Screen Not Detected (Not Detect) Ur Phencyclidine Scrn Not Detected (Not Detect) Ur Amphetamines Screen Not Detected (Not Detect) U Benzodiazepines Scrn Not Detected (Not Detect) Urine Cocaine Screen Not Detected (Not Detect) U Marijuana (THC) Screen Not Detected (Not Detect) 07/01/24 Range/Units 14:23 WBC (4.8-10.8) X10*3/uL RBC (4.20-5.50) X10*6/uL Hgb (12.0-16.0) g/dl Hct (37.0-47.0) % MCV (80.0-98.0) fL MCH (27.0-33.0) pg MCHC (31.0-35.0) g/dl RDW (11.0-16.0) % Plt Count (160-400) X10*3/uL MPV (9.4-12.3) fL Immature Gran % (Auto) Neut % (Auto) Lymph % (Auto) Douglas % (Auto) Eos % (Auto) Baso % (Auto) Lymph # (Auto) Douglas # (Auto) Eos # (Auto) Baso # (Auto) Abs Immat Gran (auto) Absolute Neuts (auto) Absolute Nucleated RBC (0.0-0.012) X10*3/uL Nucleated RBC % (auto) (0.0-0.2) /100WBC Neutrophils % (Manual) (45-73) % Band Neutrophils % (3-5) % Lymphocytes % (Manual) (20-40) % Monocytes % (Manual) (2-11) % Eosinophils % (Manual) (0-4) % Abs Neuts (Manual) (2.0-8.3) X10*3/uL Lymphocytes # (Manual) (1.2-4.9) X10*3/uL Monocytes # (Manual) (0.1-1.2) X10*3/uL Eosinophils # (Manual) (0.0-0.4) X10*3/uL Platelet Estimate (NORMAL) Plt Morphology Comment RBC Morphology Sodium (135-145) mmol/L Potassium (3.3-5.1) mmol/L Chloride (96-108) mmol/L Carbon Dioxide (22-29) mmol/L Anion Gap (12-20) BUN (9-16) mg/dL Creatinine (0.5-1.4) mg/dL Estim Creat Clear Calc Estimated GFR Random Glucose (60-115) mg/dL Lactic Acid (0.5-2.0) mmol/L Lactic Acid F/U @ 2Hr 1.5 (0.5-2.0) mmol/L Calcium (8.4-10.2) mg/dL Magnesium (1.6-2.6) mg/dL Total Bilirubin (0.0-1.0) mg/dL AST (5-31) U/L ALT (0-31) U/L Alkaline Phosphatase (39-117) U/L Total Protein (6.5-8.0) g/dL Albumin (3.5-5.0) g/dL Urine Color Urine Appearance Urine pH (5.0-9.0) Ur Specific M[place]ester (1.005-1.025) Urine Protein (Neg-Trace) mg/dL Urine Glucose (UA) (Negative) mg/dL Urine Ketones (Negative) mg/dL Urine Blood (Negative) Urine Nitrite (Negative) Ur Leukocyte Esterase (Negative) Urine RBC (0-2) /HPF Urine WBC (0-5) /HPF Ur Squamous Epith Cells (0-2) /HPF Urine Bacteria (None Seen) Hyaline Casts (0-2) /LPF Urine Opiates Screen (Not Detect) Ur Buprenorphine Scrn (Not Detect) ng/mL Ur Oxycodone Screen (Not Detect) ng/mL Urine Methadone Screen (Not Detect) ng/mL Urine Fentanyl Screen (Not Detect) Ur Barbiturates Screen (Not Detect) Ur Phencyclidine Scrn (Not Detect) Ur Amphetamines Screen (Not Detect) U Benzodiazepines Scrn (Not Detect) Urine Cocaine Screen (Not Detect) U Marijuana (THC) Screen (Not Detect) Independent Interpretation I performed an independent interpretation of an: CT Scan Radiology Impression Discussion of test interpretation with radiology: I have reviewed the radiologist's reading. Critical Care Time Critical Care Time Critical Care Time: Yes Total Critical Care Time: 35 Attestation: I attest to this time spent taking care of the patient, obtaining history, physical, reviewing labs, imaging, treatment of patients condition +/- specialist/hospitalist consult Discharge Plan Discharge Clinical Impression: Pneumonia, Physical deconditioning, Fluid in endometrial cavity, Lytic lesion of bone on x-ray, Bandemia Patient Disposition: Admitted As Inpatient Print Language: [place]
[2024-07-01] MEDS: Acetaminophen Supp 650 MG SUPP.RECT PR (11:57)
[2024-07-01] MEDS: cefTRIAXone sodium 1 GM in 0.9 % Sodium Chloride 50 ML IV (11:57)
[2024-07-01 12:15] LABS: Hematocrit 46.9 % (37.0-47.0); Mean Corpuscular Hemoglobin 29.6 pg (27.0-33.0); Mean Corpuscular Volume 92.5 fL (80.0-98.0); Platelet Count 243 X10*3/uL (160-400); Red Blood Count 5.07 X10*6/uL (4.20-5.50); Red Cell Distribution Width 14.1 % (11.0-16.0); White Blood Count 9.9 X10*3/uL (4.8-10.8)
[2024-07-01] MEDS: 0.9 % Sodium Chloride 1,428.81 ML 1428.81 ML IV (12:17)
[2024-07-01 12:35] LABS: Alanine Aminotransferase 21 U/L (0-31); Albumin Level 3.5 g/dL (3.5-5.0); Alkaline Phosphatase 80 U/L (39-117); Anion Gap 14 (12-20); Aspartate Amino Transferase 32 U/L (5-31); Bilirubin Total 0.9 mg/dL (0.0-1.0); Blood Urea Nitrogen 17 mg/dL (9-16); Calcium 9.3 mg/dL (8.4-10.2); Carbon Dioxide 31 mmol/L (22-29); Chloride 96 mmol/L (96-108); Creatinine Clr Calc Pharmacy 41.7; Estimated Glomerular Filt Rate 57; Glucose Random 78 mg/dL (60-115); Magnesium 1.5 mg/dL (1.6-2.6); Potassium 4.4 mmol/L (3.3-5.1); Sodium 137 mmol/L (135-145); Total Protein 6.8 g/dL (6.5-8.0)
[2024-07-01 12:39] LABS: Lactic Acid 2.7 mmol/L (0.5-2.0)
[2024-07-01 12:56] LABS: Neutrophils Percent Manual 75 % (45-73)
[2024-07-01 13:12] LABS: Eosinophils Absolute Manual 0.1 X10*3/uL (0.0-0.4); Eosinophils Percent Manual 1 % (0-4); Lymphocytes Absolute Manual 0.1 X10*3/uL (1.2-4.9); Lymphocytes Percent Manual 1 % (20-40); Monocytes Absolute Manual 0.3 X10*3/uL (0.1-1.2); Monocytes Percent Manual 3 % (2-11); Neutrophils Absolute Manual 9.4 X10*3/uL (2.0-8.3)
[2024-07-01 13:13] LABS: Platelet Estimate NORMAL (NORMAL); Platelet Morphology Comment NORMAL; RBC Morphology NORMAL
[2024-07-01 13:29] LABS: Band Neutrophils Percent 20 % (3-5)
[2024-07-01 13:49] LABS: Appearance Urine Clear; Color Urine Dark Yellow; Glucose Urine UA Negative (Negative); Leukocyte Esterase Urine Small (1+) (Negative); Nitrite Urine Negative (Negative); Specific Gravity - Urine 1.015 (1.005-1.025); UMIC TRIGGER UACC YES; Urine Blood Negative (Negative); Urine Ketones Negative (Negative); Urine Protein Trace mg/dL (Neg-Trace)
[2024-07-01 13:58] LABS: Reflex Lactate? Lactic Acid Added
[2024-07-01 14:03] LABS: Amphetamine Screen Urine Not Detected (Not Detect); Barbiturates, Urine Not Detected (Not Detect); Benzodiazepines Screen Urine Not Detected (Not Detect); Buprenorphine Scr Not Detected (Not Detect); Cannabinoid Screen Urine Not Detected (Not Detect); Cocaine Screen Urine Not Detected (Not Detect); Fentanyl, urine Not Detected (Not Detect); Methadone Screen, Urine Not Detected (Not Detect); Opiate Screen Urine Not Detected (Not Detect); Oxycodone Screen Urine Positive (Not Detect); Phencyclidine Screen Urine Not Detected (Not Detect)
[2024-07-01 14:08] LABS: Bacteria Urine None Seen (None Seen); Hyaline Casts Urine 0-2 /LPF (0-2); RBC Urine 0-2 /HPF (0-2); UACC Culture Trigger YES; WBC Urine >50 /HPF (0-5)
[2024-07-01] MEDS: Midodrine HCl 5 MG TABLET PO (14:15)
[2024-07-01] MEDS: 0.9 % Sodium Chloride 500 ML IV (14:16)
[2024-07-01 14:38] LABS: ~Lactic Acid-LAB USE ONLY 1.5 mmol/L (0.5-2.0)
[2024-07-01] MEDS: Albumin Human 25 % 100 ML 133.33 ML IV ×2 (15:00→16:05)
--- NOTE | 2024-07-01 15:25 | PHA.MEDREC ---
Addendum entered by Linda Castro RPh 07/01/24 15:40: reviewed by [facility]. Original Note: Pharmacy Consult ? Medication Reconciliation Pharmacy has completed the medication reconciliation. Called and spoke to patient daughter Vanna over the phone because patient and at bedside were not sure what patient took for medications. The daughter was able to confirm her Eliquis 5mg tab, at first the patient and stated the patient was only taking it once a day and when I asked the daughter she states her mom is suppose to be taking it twice a day and when she gives her mom her medications she does 1 BID but is not sure if her mom is compliant with her medications. I asked when she last took them and her daughter looked at her pills and it looked like her mom was not compliant with taking her medications this weekend but her daughter knows she took all of them Monday when her daughter gave her mom her medications. Her daughter confirmed she is all done with her Cefuroxime, Doxycycline, Levofloxacin and Nitrofurantoin regimens.
--- NOTE | 2024-07-01 15:52 | P.HPCC_ITS ---
History of Present Illness Date of Service: 07/02/24 Chief Complaint: Weakness and alteration of mental status 69-year-old lady with underlying metastatic renal carcinoma on chemotherapy, COPD on home O2 up to 2 L, bronchiectasis presented with complaints of worsening alteration of mental status on background recent UTI. On ER evaluation patient also noted to be hypotensive with poor response to initial IV fluid resuscitation, started on empiric antibiotics and admitted to the intensive care unit. Review of Systems 2 Constitutional: Constitutional: Denies daytime sleepiness, Denies excessive sweating, Denies fatigue, Denies fever(s), Denies lethargy, Denies malaise, Denies night sweats, Denies snoring and Denies weight loss Eyes: Eyes: Denies blurry vision and Denies itchy eyes ENT: Denies nasal congestion, Denies post nasal drip, Denies sinus pain, Denies sinus pressure and Denies other ( Thrush) Cardiovascular: Cardiovascular: Denies chest pain, Denies pedal edema, Denies dyspnea, Denies orthopnea and Denies paroxysmal nocturnal dyspnea Respiratory: Respiratory: Denies cough, Denies hemoptysis, Denies excessive phlegm production, Denies dyspnea, Denies snoring and Denies wheezing Gastrointestinal: Gastrointestinal: Denies abdominal pain and Denies heartburn Musculoskeletal: Musculoskeletal: Denies myalgias, Denies arthralgias and Denies joint swelling Integumentary/Breasts: Skin/Breast: Denies rash Neurologic: Reports confusion, Denies memory loss and Denies seizure-like activity Psychiatric: Psychiatric: Denies abnormal sleep pattern, Denies anxiety, Reports confusion and Denies memory loss Endocrine: Endocrine: Denies excessive sweating, Denies fatigue and Denies heat intolerance Hematologic/Lymphatic: Hematologic/Lymphatic: Denies easy bruising Allergic/Immunologic: Allergic/Immunologic: Denies itchy eyes, Denies seasonal rhinorrhea and Denies wheezing PMFSH Past Medical History Medical History COPD (chronic obstructive pulmonary disease) Liver lesion Right lower lobe lung mass Post-operative nausea and vomiting Dry eye COVID-19 COPD (chronic obstructive pulmonary disease) Malignant neoplasm of left kidney Vitamin D deficiency Depression Primary osteoarthritis of knees, bilateral Pure hypercholesterolemia Elevated C-reactive protein (CRP) Palpitations Constipation Obstructive sleep apnea Anxiety Benign essential hypertension Renal cell carcinoma of left kidney Oral thrush Lumbar degenerative disc disease Status post fall Right foot pain Chronic allergic bronchitis GERD (gastroesophageal reflux disease) Family History Family History Father Hypertension CVD (cardiovascular disease) Cancer Mother Hypertension Substance abuse Other Mental health problem Surgical History Surgical History Metastatic renal cell carcinoma to lung H/O kidney removal Hx of oral surgery Hx of tonsillectomy Pulmonary nodule 1 cm or greater in diameter History of nephrectomy Social History Social History Household Members: Spouse Household Members Other:: and brother and sister Housing: House Are you a primary healthcare technician to a significant other at home: No Do you presently have visiting nurse or other home services: Yes Alcohol intake: never Comment: COUNTS CORRECT Patient Tobacco Use Status: Former Tobacco user Tobacco use type: Cigarette Cigarette Packs Per Day: 1.5 Years Smoked: 30 e-Cigarette/Vaping Use: Currently Using Second Hand Smoke Exposure: No Use of substances other than those prescribed or required for medical reasons: No Currently Displaying Signs/Symptoms of Drug Intoxication Withdrawal: No Have you been hit, kicked, punched, or otherwise hurt by someone within the past year? If so, by whom?: No Do you feel safe in your current relationship?: Yes Is there a partner from a previous relationship who is making you feel unsafe now?: No Are you made to feel afraid or neglected: No Christianity Healthcare Practices: lutheran Advance Directives: Yes Advance Directives on File: Yes Advance Directives Date on File: 11/29/23 Do you have a plan to hurt others: No Plan Recently lost weight without trying: Yes How much weight loss: 14-23 pounds Nutrition Risks: On aspiration precautions Patient : No : No service: No Current occupational status: disabled Cognitive needs: No Hearing needs: No Vision needs: No Meds Allergies Allergy/AdvReac Type Severity Reaction Status Date / Time Sulfa (Sulfonamide Allergy Severe ANAPHYLAXIS Verified 07/01/24 12:01 Antibiotics) Penicillins Allergy Intermediate RASH Verified 07/01/24 12:02 aspirin [ASA] AdvReac Severe severe Verified 07/01/24 12:02 stomach pain NSAIDS (Non-Steroidal AdvReac Severe severe Verified 07/01/24 12:02 Anti-Inflamma stomach pain codeine [Codeine] AdvReac Intermediate NAUSEA & Verified 07/01/24 12:02 VOMITING Active Medications: Current Medications Albuterol/Ipratropium (Albuterol/Iprat 2.5/0.5mg 3 Ml Ampul.Neb) 3 ml INHALE RQ6H WHILE AWAKE [facility] Apixaban (Apixaban 5 Mg Tablet) 5 mg PO BID [facility] Azithromycin (Azithromycin 500 Mg Tablet) 500 mg PO Q24H [facility] Albumin Human (Kedbumin 25 %) 100 mls @ 133.333 mls/hr IV Q1H ENE Stop: 07/01/24 16:44 Last Admin: 07/01/24 15:00 Dose: 133.33 mls/hr Ceftriaxone Sodium 1 gm/ (Sodium Chloride) 50 mls @ 100 mls/hr IV Q24H [facility] Vancomycin HCl 1,000 mg/ (Sodium Chloride) 270 mls @ 270 mls/hr IV ONCE ONE Stop: 07/01/24 16:49 Levothyroxine Sodium (Levothyroxine Sodium 25 Mcg Tablet) 25 mcg PO DAILY@0600 [facility] Home Medications ?Medication ?Instructions ?Recorded ?Confirmed ?Last Taken ?Type bupropion HCl 150 mg 24 hr tablet, 150 mg PO DAILY 10/06/23 07/01/24 06/28/24 History extended release Magic Mouthwash 10 ml PO QID PRN sores 07/01/24 07/01/24 Unknown History Diphen/Lido/Antacid 1:1:1 240 mL suspension albuterol sulfate 90 mcg/actuation 2 puff inhalation DAILY PRN 07/01/24 07/01/24 Unknown History aerosol inhaler shortness of breath or wheezing levothyroxine 25 mcg tablet 25 mcg PO DAILY@0600 07/01/24 07/01/24 06/28/24 History (Synthroid) lidocaine HCl 2 % mucosal solution 1 appl mucous membrane QID PRN 07/01/24 07/01/24 06/28/24 History (Lidocaine Viscous) mouth sores ondansetron 8 mg disintegrating 8 mg PO Q8H PRN Nausea And Vomiting 07/01/24 07/01/24 06/28/24 History tablet sennosides 8.6 mg tablet (senna) 8.6 mg PO BID PRN constipation 07/01/24 07/01/24 Unknown History Physical Exam 2 Vital Signs: Vital Signs: Last Vital Signs Temp 99.1 F 07/01/24 14:44 Pulse 92 07/01/24 14:44 Resp 12 07/01/24 14:44 BP 96/53 L 07/01/24 14:44 Pulse Ox 100 07/01/24 14:44 O2 Del Method Nasal Cannula 07/01/24 14:44 O2 Flow Rate 2 07/01/24 14:44 Oxygen Flow Rate 5 07/01/24 11:57 BMI result Body Mass Index 18.6 Const: General: no acute distress, alert and confusion Nutritional Appearance: malnourished Orientation/consciousness: confusion and Other orientation findings ( oriented) HEENT: Head: Yes atraumatic Eyes: General: appearance normal, both eyes and all related structures S clerae: sclerae normal EOM: EOMs intact bilaterally Neck: Neck: Yes supple Lymphatic: no lymphadenopathy noted Resp: Effort & Inspection: normal respiratory effort and no use of accessory muscles Auscultation: clear to auscultation bilaterally Cardio: Rate: regular rate Rhythm: regular rhythm Heart sounds: no gallops, no murmurs and no rubs Skin: General skin exam: other ( warm) Neuro: General: confusion Extrem: General: No clubbing, No cyanosis and No edema Results Labs 07/02/24 05:30 07/02/24 05:30 Labs: Laboratory Results - last 24 hr 07/01/24 07/01/24 07/01/24 11:51 13:38 13:41 MCV 92.5 MCH 29.6 MCHC 32.0 RDW 14.1 Plt Count 243 MPV 10.0 Immature Gran % (Auto) Cancelled Neut % (Auto) Cancelled Lymph % (Auto) Cancelled [place] % (Auto) Cancelled Eos % (Auto) Cancelled Baso % (Auto) Cancelled Lymph # (Auto) Cancelled [place] # (Auto) Cancelled Eos # (Auto) Cancelled Baso # (Auto) Cancelled Abs Immat Gran (auto) Cancelled Absolute Neuts (auto) Cancelled Absolute Nucleated RBC 0.000 Nucleated RBC % (auto) 0.0 Neutrophils % (Manual) 75 H Band Neutrophils % 20 H Lymphocytes % (Manual) 1 L Monocytes % (Manual) 3 Eosinophils % (Manual) 1 Abs Neuts (Manual) 9.4 H Lymphocytes # (Manual) 0.1 L Monocytes # (Manual) 0.3 Eosinophils # (Manual) 0.1 Platelet Estimate NORMAL Plt Morphology Comment NORMAL RBC Morphology NORMAL Anion Gap 14 Estim Creat Clear Calc 41.7 Estimated GFR 57 Random Glucose 78 Lactic Acid 2.7 H* Lactic Acid F/U @ 2Hr Calcium 9.3 Magnesium 1.5 L Total Bilirubin 0.9 AST 32 H ALT 21 Alkaline Phosphatase 80 Total Protein 6.8 Albumin 3.5 Urine Color Dark Yellow Urine Appearance Clear Urine pH 7.0 Ur Specific [place] 1.015 Urine Protein Trace Urine Glucose (UA) Negative Urine Ketones Negative Urine Blood Negative Urine Nitrite Negative Ur Leukocyte Esterase Small (1+) H Urine RBC 0-2 Urine WBC >50 H Ur Squamous Epith Cells 3-5 Urine Bacteria None Seen Hyaline Casts 0-2 Urine Opiates Screen Not Detected Ur Buprenorphine Scrn Not Detected Ur Oxycodone Screen Positive H Urine Methadone Screen Not Detected Urine Fentanyl Screen Not Detected Ur Barbiturates Screen Not Detected Ur Phencyclidine Scrn Not Detected Ur Amphetamines Screen Not Detected U Benzodiazepines Scrn Not Detected Urine Cocaine Screen Not Detected U Marijuana (THC) Screen Not Detected 07/01/24 14:23 MCV MCH MCHC RDW Plt Count MPV Immature Gran % (Auto) Neut % (Auto) Lymph % (Auto) [place] % (Auto) Eos % (Auto) Baso % (Auto) Lymph # (Auto) [place] # (Auto) Eos # (Auto) Baso # (Auto) Abs Immat Gran (auto) Absolute Neuts (auto) Absolute Nucleated RBC Nucleated RBC % (auto) Neutrophils % (Manual) Band Neutrophils % Lymphocytes % (Manual) Monocytes % (Manual) Eosinophils % (Manual) Abs Neuts (Manual) Lymphocytes # (Manual) Monocytes # (Manual) Eosinophils # (Manual) Platelet Estimate Plt Morphology Comment RBC Morphology Anion Gap Estim Creat Clear Calc Estimated GFR Random Glucose Lactic Acid Lactic Acid F/U @ 2Hr 1.5 Calcium Magnesium Total Bilirubin AST ALT Alkaline Phosphatase Total Protein Albumin Urine Color Urine Appearance Urine pH Ur Specific [place] Urine Protein Urine Glucose (UA) Urine Ketones Urine Blood Urine Nitrite Ur Leukocyte Esterase Urine RBC Urine WBC Ur Squamous Epith Cells Urine Bacteria Hyaline Casts Urine Opiates Screen Ur Buprenorphine Scrn Ur Oxycodone Screen Urine Methadone Screen Urine Fentanyl Screen Ur Barbiturates Screen Ur Phencyclidine Scrn Ur Amphetamines Screen U Benzodiazepines Scrn Urine Cocaine Screen U Marijuana (THC) Screen Imaging Radiologist's Impressions: Impressions Chest CTA 07/01/24 11:16 IMPRESSION: No evidence of pulmonary embolism. Chain sutures at the periphery of the right middle lobe with associated cavitary and/or cystic bronchiectatic changes, grossly similar compared with May 15, 2024. Recommend correlation with surgical history. Dependent interstitial and airspace disease involving the right upper and right lower lobes, new or significantly worse compared with May 15, 2024. Differential diagnosis includes, but is not limited to, pneumonia. Small foci of of left upper lobe and left lower lobe tree in bud densities laterally, new or worse, nonspecific, possibly inflammatory/infectious. Subcentimeter right hilar nodes. Mild induration of mediastinal fat. 2.8 cm, round, hypodense, segment 7 hepatic lesion which appears to demonstrate wall irregularity as well as a mural nodule, similar compared with May 15, 2024, and probably decreased in size compared with February 27, 2024. Mildly distended gallbladder measuring approximately 11 cm in length by 5 cm in diameter. Mild, diffuse, nonspecific gallbladder wall thickening. No evidence of pericholecystic inflammatory change. Suspect fluid within the endometrial cavity. This is an abnormal finding in a postmenopausal woman. Recommend gynecological evaluation. Question vague, poorly circumscribed lytic lesion involving the inferior aspect of the L1 vertebral body. Neoplasm cannot be excluded (for example, metastatic disease). Status post left nephrectomy. Tip and balloon of Pena catheter lie within the urinary bladder lumen, which is distended. Additional findings as above. VTE: Negative. Electronically signed by: Anthony Díaz MD 07/01/2024 02:16 PM EDT RP Head CT 07/01/24 11:16 IMPRESSION: No acute intracranial pathology. Electronically signed by: Patrick Fernandez DO 07/01/2024 01:43 PM EDT RP Abdomen/Pelvis CT 07/01/24 12:41 IMPRESSION: No evidence of pulmonary embolism. Chain sutures at the periphery of the right middle lobe with associated cavitary and/or cystic bronchiectatic changes, grossly similar compared with May 15, 2024. Recommend correlation with surgical history. Dependent interstitial and airspace disease involving the right upper and right lower lobes, new or significantly worse compared with May 15, 2024. Differential diagnosis includes, but is not limited to, pneumonia. Small foci of of left upper lobe and left lower lobe tree in bud densities laterally, new or worse, nonspecific, possibly inflammatory/infectious. Subcentimeter right hilar nodes. Mild induration of mediastinal fat. 2.8 cm, round, hypodense, segment 7 hepatic lesion which appears to demonstrate wall irregularity as well as a mural nodule, similar compared with May 15, 2024, and probably decreased in size compared with February 27, 2024. Mildly distended gallbladder measuring approximately 11 cm in length by 5 cm in diameter. Mild, diffuse, nonspecific gallbladder wall thickening. No evidence of pericholecystic inflammatory change. Suspect fluid within the endometrial cavity. This is an abnormal finding in a postmenopausal woman. Recommend gynecological evaluation. Question vague, poorly circumscribed lytic lesion involving the inferior aspect of the L1 vertebral body. Neoplasm cannot be excluded (for example, metastatic disease). Status post left nephrectomy. Tip and balloon of Pena catheter lie within the urinary bladder lumen, which is distended. Additional findings as above. VTE: Negative. Electronically signed by: Anthony Díaz MD 07/01/2024 02:16 PM EDT RP Assessment and Plan (1) COPD (chronic obstructive pulmonary disease): Qualifiers: COPD type: unspecified COPD Qualified Code(s): J44.9 - Chronic obstructive pulmonary disease, unspecified Status: Acute (2) Acute UTI: Status: Acute (3) Supplemental oxygen dependent: Status: Acute (4) Cancer cachexia: Status: Acute (5) Sepsis: Status: Acute Plan Assessment: 69-year-old lady with metastatic renal cancer with cachexia and prior UTIs admitted with septic encephalopathy and sepsis with possible source Plan: Neuro: Septic encephalopathy, expect to improve with resolution of sepsis. Cardiac: No acute issues. Pulmonary: No acute issues. Renal: No acute issues. Endo: No acute issues. GI: No acute issues. ID: Sepsis without overt shock, but with poor initial response to IV fluids. Cultures are pending. Continue broad-spectrum antibiotic coverage. Heme/Onc: No acute issues. Underlying metastatic renal cancer on chemotherapy. Psych: No acute issues. Miscellaneous: No acute issues. Prophylaxis: Heparin Diet: Regular Critical care time spent: 45 minutes
[2024-07-01] MEDS: Azithromycin 500 MG TABLET PO (16:08)
[2024-07-01] MEDS: vancomycin HCL 1,000 MG in 0.9 % Sodium Chloride 250 ML 270 MG IV (17:34)
[2024-07-01] MEDS: Albuterol/Iprat 2.5/0.5MG 3 ML AMPUL.NEB INHALE (19:59)
[2024-07-01 20:13] LABS: VBG Base Excess 1.6 mmol/L; VBG HCO3 25 mmol/L (22-26); VBG pCO2 36 mmHg; VBG pH 7.45 (7.32-7.43); VBG pO2 43 mmHg
[2024-07-01 20:15] LABS: Venous Blood Gas Refer to POC result
[2024-07-01] MEDS: Apixaban 5 MG TABLET PO (20:19)
[2024-07-01 20:26] LABS: Albumin Level 3.3 g/dL (3.5-5.0); Anion Gap 13 (12-20); Blood Urea Nitrogen 13 mg/dL (9-16); Calcium 7.7 mg/dL (8.4-10.2); Carbon Dioxide 23 mmol/L (22-29); Chloride 105 mmol/L (96-108); Estimated Glomerular Filt Rate > 60; Glucose Random 85 mg/dL (60-115); Magnesium 1.4 mg/dL (1.6-2.6); Phosphorus 4.1 mg/dL (2.7-4.5); Potassium 3.7 mmol/L (3.3-5.1); Sodium 137 mmol/L (135-145)
[2024-07-01] MEDS: Magnesium Sulfate/H2O 2 GM/50 ML PIGGYBACK IV (20:41)
[2024-07-01] MEDS: Calcium Gluconate/NaCl,Iso-Osm 2 GM/100 ML PLAST..BAG IV (20:42)
[2024-07-01] MEDS: Mag&Al/Sim/Diphenhyd/Lidocaine 10 ML ORAL.SUSP PO (21:29)
[2024-07-01] MEDS: Albumin Human 25 % 100 ML IV (22:06)
[2024-07-02] VITALS (17 sets, daily range): BP systolic 94–131; BP diastolic 53–73; PULSE 71–94; RESP 12–20; TEMP 36.1–36.9; O2SAT 91–100; BMI 18.5
[2024-07-02] MEDS: Albumin Human 25 % 100 ML IV ×3 (03:01→14:26)
[2024-07-02 05:35] LABS: VBG Base Excess 6.7 mmol/L; VBG HCO3 29 mmol/L (22-26); VBG pCO2 33 mmHg; VBG pH 7.54 (7.32-7.43); VBG pO2 61 mmHg
[2024-07-02] MEDS: Levothyroxine Sodium 25 MCG TABLET PO (05:36)
[2024-07-02 05:42] LABS: Hematocrit 28.2 % (37.0-47.0); Hemoglobin 9.3 g/dl (12.0-16.0); Mean Corpuscular Hemoglobin 30.5 pg (27.0-33.0); Mean Corpuscular Volume 92.5 fL (80.0-98.0); Mean Platelet Volume 9.9 fL (9.4-12.3); Platelet Count 154 X10*3/uL (160-400); Red Blood Count 3.05 X10*6/uL (4.20-5.50); Red Cell Distribution Width 14.1 % (11.0-16.0)
[2024-07-02 05:44] LABS: Venous Blood Gas Refer to POC result
[2024-07-02 05:59] LABS: Alanine Aminotransferase 10 U/L (0-31); Albumin Level 3.6 g/dL (3.5-5.0); Alkaline Phosphatase 38 U/L (39-117); Anion Gap 12 (12-20); Aspartate Amino Transferase 14 U/L (5-31); Bilirubin Total 0.7 mg/dL (0.0-1.0); Blood Urea Nitrogen 12 mg/dL (9-16); Calcium 8.6 mg/dL (8.4-10.2); Carbon Dioxide 26 mmol/L (22-29); Chloride 104 mmol/L (96-108); Creatinine Clr Calc Pharmacy 64.2; Estimated Glomerular Filt Rate > 60; Glucose Random 77 mg/dL (60-115); Magnesium 1.9 mg/dL (1.6-2.6); Phosphorus 3.6 mg/dL (2.7-4.5); Potassium 3.7 mmol/L (3.3-5.1); Sodium 138 mmol/L (135-145); Total Protein 5.3 g/dL (6.5-8.0)
[2024-07-02 06:04] LABS: Band Neutrophils Percent 20 % (3-5); Eosinophils Absolute Manual 0.2 X10*3/uL (0.0-0.4); Eosinophils Percent Manual 5 % (0-4); Lymphocytes Absolute Manual 0.2 X10*3/uL (1.2-4.9); Lymphocytes Percent Manual 5 % (20-40); Monocytes Absolute Manual 0.1 X10*3/uL (0.1-1.2); Monocytes Percent Manual 2 % (2-11); Neutrophils Absolute Manual 3.5 X10*3/uL (2.0-8.3); Neutrophils Percent Manual 68 % (45-73)
[2024-07-02 06:06] LABS: Platelet Estimate NORMAL (NORMAL); RBC Morphology NORMAL
[2024-07-02 06:14] LABS: Platelet Morphology Comment NORMAL
[2024-07-02] MEDS: Albuterol/Iprat 2.5/0.5MG 3 ML AMPUL.NEB INHALE ×2 (07:31→15:03)
[2024-07-02] MEDS: cefTRIAXone sodium 1 GM in 0.9 % Sodium Chloride 50 ML IV (08:28)
[2024-07-02] MEDS: Apixaban 5 MG TABLET PO ×2 (08:29→19:59)
--- NOTE | 2024-07-02 09:00 | P.PNCC_ITS ---
Subjective Subjective Date of Service: 07/02/24 Interval History: 69-year-old lady with underlying metastatic renal carcinoma on chemotherapy, COPD on home O2 up to 2 L, bronchiectasis presented with complaints of worsening alteration of mental status on background recent UTI. On ER evaluation patient also noted to be hypotensive with poor response to initial IV fluid resuscitation, started on empiric antibiotics and admitted to the intensive care unit. No events overnight. Encephalopathy resolved. Did not require pressor support. Critical Care Time (minutes): 0 Physical Exam 2 Vital Signs: Vital Signs: Last Vital Signs Temp 98.5 F 07/02/24 08:00 Pulse 87 07/02/24 08:00 Resp 18 07/02/24 08:00 BP 109/60 07/02/24 08:00 Pulse Ox 91 L 07/02/24 08:00 O2 Del Method Nasal Cannula 07/02/24 08:00 O2 Flow Rate 2 07/02/24 08:00 Oxygen Flow Rate 2 07/01/24 18:23 BMI result Body Mass Index 18.5 Const: General: no acute distress and alert Nutritional Appearance: not obese Orientation/consciousness: Other orientation findings ( oriented) HEENT: Head: Yes atraumatic Eyes: General: appearance normal, both eyes and all related structures S clerae: sclerae normal EOM: EOMs intact bilaterally Neck: Neck: Yes supple Lymphatic: no lymphadenopathy noted Resp: Effort & Inspection: normal respiratory effort and no use of accessory muscles Auscultation: clear to auscultation bilaterally Cardio: Rate: regular rate Rhythm: regular rhythm Heart sounds: no gallops, no murmurs and no rubs Skin: General skin exam: other ( warm) Extrem: General: No clubbing, No cyanosis and No edema Objective Data Labs 07/02/24 05:30 07/02/24 05:30 Labs: Laboratory Results - last 24 hr 07/01/24 07/01/24 07/01/24 11:51 13:38 13:41 WBC 9.9 RBC 5.07 Hgb 15.0 Hct 46.9 MCV 92.5 MCH 29.6 MCHC 32.0 RDW 14.1 Plt Count 243 MPV 10.0 Immature Gran % (Auto) Cancelled Neut % (Auto) Cancelled Lymph % (Auto) Cancelled [place] % (Auto) Cancelled Eos % (Auto) Cancelled Baso % (Auto) Cancelled Lymph # (Auto) Cancelled [place] # (Auto) Cancelled Eos # (Auto) Cancelled Baso # (Auto) Cancelled Abs Immat Gran (auto) Cancelled Absolute Neuts (auto) Cancelled Absolute Nucleated RBC 0.000 Nucleated RBC % (auto) 0.0 Neutrophils % (Manual) 75 H Band Neutrophils % 20 H Lymphocytes % (Manual) 1 L Monocytes % (Manual) 3 Eosinophils % (Manual) 1 Abs Neuts (Manual) 9.4 H Lymphocytes # (Manual) 0.1 L Monocytes # (Manual) 0.3 Eosinophils # (Manual) 0.1 Platelet Estimate NORMAL Plt Morphology Comment NORMAL RBC Morphology NORMAL VBG pH VBG pCO2 VBG pO2 VBG HCO3 VBG O2 Saturation VBG Base Excess Sodium 137 Potassium 4.4 Chloride 96 Carbon Dioxide 31 H Anion Gap 14 BUN 17 H Creatinine 0.97 Estim Creat Clear Calc 41.7 Estimated GFR 57 Random Glucose 78 Lactic Acid 2.7 H* Lactic Acid F/U @ 2Hr Calcium 9.3 Phosphorus Magnesium 1.5 L Total Bilirubin 0.9 AST 32 H ALT 21 Alkaline Phosphatase 80 Total Protein 6.8 Albumin 3.5 Hold Yellow Top Urine Color Dark Yellow Urine Appearance Clear Urine pH 7.0 Ur Specific [place] 1.015 Urine Protein Trace Urine Glucose (UA) Negative Urine Ketones Negative Urine Blood Negative Urine Nitrite Negative Ur Leukocyte Esterase Small (1+) H Urine RBC 0-2 Urine WBC >50 H Ur Squamous Epith Cells 3-5 Urine Bacteria None Seen Hyaline Casts 0-2 Urine Opiates Screen Not Detected Ur Buprenorphine Scrn Not Detected Ur Oxycodone Screen Positive H Urine Methadone Screen Not Detected Urine Fentanyl Screen Not Detected Ur Barbiturates Screen Not Detected Ur Phencyclidine Scrn Not Detected Ur Amphetamines Screen Not Detected U Benzodiazepines Scrn Not Detected Urine Cocaine Screen Not Detected U Marijuana (THC) Screen Not Detected 07/01/24 07/01/24 07/01/24 14:23 20:01 20:04 WBC RBC Hgb Hct MCV MCH MCHC RDW Plt Count MPV Immature Gran % (Auto) Neut % (Auto) Lymph % (Auto) [place] % (Auto) Eos % (Auto) Baso % (Auto) Lymph # (Auto) [place] # (Auto) Eos # (Auto) Baso # (Auto) Abs Immat Gran (auto) Absolute Neuts (auto) Absolute Nucleated RBC Nucleated RBC % (auto) Neutrophils % (Manual) Band Neutrophils % Lymphocytes % (Manual) Monocytes % (Manual) Eosinophils % (Manual) Abs Neuts (Manual) Lymphocytes # (Manual) Monocytes # (Manual) Eosinophils # (Manual) Platelet Estimate Plt Morphology Comment RBC Morphology VBG pH 7.45 H VBG pCO2 36 VBG pO2 43 VBG HCO3 25 VBG O2 Saturation 77.0 VBG Base Excess 1.6 Sodium 137 Potassium 3.7 Chloride 105 Carbon Dioxide 23 Anion Gap 13 BUN 13 Creatinine 0.71 Estim Creat Clear Calc 57.0 Estimated GFR > 60 Random Glucose 85 Lactic Acid Lactic Acid F/U @ 2Hr 1.5 Calcium 7.7 L D Phosphorus 4.1 Magnesium 1.4 L* Total Bilirubin AST ALT Alkaline Phosphatase Total Protein Albumin 3.3 L Hold Yellow Top See Note Urine Color Urine Appearance Urine pH Ur Specific [place] Urine Protein Urine Glucose (UA) Urine Ketones Urine Blood Urine Nitrite Ur Leukocyte Esterase Urine RBC Urine WBC Ur Squamous Epith Cells Urine Bacteria Hyaline Casts Urine Opiates Screen Ur Buprenorphine Scrn Ur Oxycodone Screen Urine Methadone Screen Urine Fentanyl Screen Ur Barbiturates Screen Ur Phencyclidine Scrn Ur Amphetamines Screen U Benzodiazepines Scrn Urine Cocaine Screen U Marijuana (THC) Screen 07/02/24 07/02/24 05:25 05:30 WBC 4.0 L RBC 3.05 L D Hgb 9.3 L D Hct 28.2 L D MCV 92.5 MCH 30.5 MCHC 33.0 RDW 14.1 Plt Count 154 L D MPV 9.9 Immature Gran % (Auto) Cancelled Neut % (Auto) Cancelled Lymph % (Auto) Cancelled [place] % (Auto) Cancelled Eos % (Auto) Cancelled Baso % (Auto) Cancelled Lymph # (Auto) Cancelled [place] # (Auto) Cancelled Eos # (Auto) Cancelled Baso # (Auto) Cancelled Abs Immat Gran (auto) Cancelled Absolute Neuts (auto) Cancelled Absolute Nucleated RBC 0.000 Nucleated RBC % (auto) 0.0 Neutrophils % (Manual) 68 Band Neutrophils % 20 H Lymphocytes % (Manual) 5 L Monocytes % (Manual) 2 Eosinophils % (Manual) 5 H Abs Neuts (Manual) 3.5 Lymphocytes # (Manual) 0.2 L Monocytes # (Manual) 0.1 Eosinophils # (Manual) 0.2 Platelet Estimate NORMAL Plt Morphology Comment NORMAL RBC Morphology NORMAL VBG pH 7.54 H VBG pCO2 33 VBG pO2 61 VBG HCO3 29 H VBG O2 Saturation 94.0 VBG Base Excess 6.7 Sodium 138 Potassium 3.7 Chloride 104 Carbon Dioxide 26 Anion Gap 12 BUN 12 Creatinine 0.63 Estim Creat Clear Calc 64.2 Estimated GFR > 60 Random Glucose 77 Lactic Acid Lactic Acid F/U @ 2Hr Calcium 8.6 D Phosphorus 3.6 Magnesium 1.9 Total Bilirubin 0.7 AST 14 ALT 10 Alkaline Phosphatase 38 L Total Protein 5.3 L Albumin 3.6 Hold Yellow Top Urine Color Urine Appearance Urine pH Ur Specific [place] Urine Protein Urine Glucose (UA) Urine Ketones Urine Blood Urine Nitrite Ur Leukocyte Esterase Urine RBC Urine WBC Ur Squamous Epith Cells Urine Bacteria Hyaline Casts Urine Opiates Screen Ur Buprenorphine Scrn Ur Oxycodone Screen Urine Methadone Screen Urine Fentanyl Screen Ur Barbiturates Screen Ur Phencyclidine Scrn Ur Amphetamines Screen U Benzodiazepines Scrn Urine Cocaine Screen U Marijuana (THC) Screen Microbiology Microbiology Results: Microbiology 07/01/24 Unknown Urine Catheterized - Pena Catheter Urine Culture - Final No growth. Progress Note: A&P Assessment and plan (1) COPD (chronic obstructive pulmonary disease): Status: Acute (2) Cancer cachexia: Status: Acute (3) Acute UTI: Status: Acute Plan Assessment: 69-year-old lady with metastatic renal cancer with cachexia and prior UTIs admitted with septic encephalopathy and sepsis with possible source Plan: Neuro: Septic encephalopathy, resolved. Cardiac: No acute issues. Pulmonary: No acute issues. Renal: No acute issues. Endo: No acute issues. GI: No acute issues. ID: Sepsis without overt shock, but with poor initial response to IV fluids. Cultures are pending. Continue broad-spectrum antibiotic coverage. Heme/Onc: No acute issues. Underlying metastatic renal cancer on chemotherapy. Psych: No acute issues. Miscellaneous: No acute issues. Prophylaxis: Heparin Diet: Regular Quality Stroke Does the patient have a stroke diagnosis?: No VTE Prior VTE?: No VTE Risk Level:: Medical - moderate - high VTE Device Contraindication: Treatment Not Indicated VTE Drug Contraindication: N/A - Med Ordered
--- NOTE | 2024-07-02 09:22 | MHC.CLN ---
Addendum entered by Liza Blanchard, BONY 07/02/24 09:23: CORRECTION FOR NOTE BELOW: PT IS MODERATELY MALNOURISHED PT WITH MILDLY DEPLETED SUBCUTANEOUS FAT AND MUSCLE MASS WITH 7% NONSIGNIFCANT WT LOSS X6 MONTHS DIET RX: REGULAR-APPROPRIATE RECOMMEND ADDING ENSURE BID AND MAGIC CUP WITH MEALS ENSURE BID PROVIDES 700KCALS, 40G PROTEIN WITH 100% ACCEPTANCE MAGIC CUP TID PROVIDES 870KCALS, 27G PROTEIN WITH 100% ACCEPTANCE MONITOR PO INTAKE AND ENCOURAGE SUPPLEMENTS SEE ALSO FULL CLINICAL NUTRITION ASSESSMENT Original Note: PT IS MODERATELY MALNOURISHED PT WITH MILDLY DEPLETED SUBCUTANEOUS FAT AND MUSCLE MASS WITH 13% NONSIGNIFICANT WT LOSS X1 YEAR WITH CHRONIC POOR PO AND INCREASED NUTRITION NEEDS R/T ACUTE ILLNESSES PO INTAKE 50% X 3 MEALS DIET RX: GRD M/S-APPROPRIATE PT RECEIVING ENSURE BID AND MAGIC CUP WITH MEALS ENSURE BID PROVIDES 700KCALS, 40G PROTEIN WITH 100% ACCEPTANCE MAGIC CUP TID PROVIDES 870KCALS, 27G PROTEIN WITH 100% ACCEPTANCE MONITOR PO INTAKE AND ENCOURAGE SUPPLEMENTS SEE ALSO FULL CLINICAL NUTRITION ASSESSMENT
--- NOTE | 2024-07-02 10:35 | P.CDIM_ITS ---
PROVIDER RESPONSE TEXT: To clarify, the appropriate diagnosis supported by the clinical indicators: Hypomagnesemia: Resolved QUERY TEXT: PHYSICIAN'S DOCUMENTATION REQUEST Date of Query: 07/02/2024 09:22 AM EDT Patient Name: Elina Stewart Admit Date: 07/01/2024 Dear Lorenzo Rosenbaum MD, A review of the medical record indicates additional documentation may be needed. Please review below and update the documentation accordingly. Clinical Indicators: LABS: magnesium 1.4 L IV Magnesium sulfate Based on the above, is there a diagnosis that correlates with these lab findings: Hypomagnesemia resolved, possible, probable etc. Labs indicate a diagnosis of (please specify) Other (explain) Clinically unable to determine (explain) Thank you, Toma eBrnal, CCS, CDIS Use of terms such as suspected, likely, concern for, or probable (associated with a specific diagnosi s that is being evaluated, monitored, or treated as if it exists) are acceptable and can be coded in the inpatient se tting, when documented at the time of discharge. Please use your independent medical judgment in providing your response. THIS QUERY IS PART OF THE PERMANENT MEDICAL RECORD
--- NOTE | 2024-07-02 10:35 | P.CDIM_ITS ---
PROVIDER RESPONSE TEXT: To clarify, the appropriate diagnosis supported by the clinical indicators: Malnutrition: Moderate QUERY TEXT: PHYSICIAN'S DOCUMENTATION REQUEST Date of Query: 07/02/2024 09:17 AM EDT Patient Name: Elina Stewart Admit Date: 07/01/2024 Dear Lorenzo Rosenbaum MD, A review of the medical record indicates additional documentation may be needed. Please review below and update the documentation accordingly. Clinical Indicators: Clinical nutrition note 07/02 - Level III risk: Malnutrition BMI 18.6 47.5kg Albumin 3.3 Total protein 5.3 If possible, please provide an associated diagnosis related to the abnormal BMI, and possible to plac e the diagnosis within the body of the written Plan: Malnutrition mild, moderate, severe Weight loss Anorexia Other (explain) Clinically unable to determine (explain) Thank you, Toma Bernal, CCS, CDIS Use of terms such as suspected, likely, concern for, or probable (associated with a specific diagnosi s that is being evaluated, monitored, or treated as if it exists) are acceptable and can be coded in the inpatient se tting, when documented at the time of discharge. Please use your independent medical judgment in providing your response. THIS QUERY IS PART OF THE PERMANENT MEDICAL RECORD
[2024-07-02] MEDS: Azithromycin 500 MG TABLET PO (14:46)
--- NOTE | 2024-07-02 14:59 | MHC.CM.PN ---
Met briefly w/pt who was in the process of transferring to the medical floor. Pt resides w/spouse and family, has [employer] for home O2. HCP on file. Pt should be able to return to home with family transportation:CM to follow
[2024-07-02] MEDS: Mag&Al/Sim/Diphenhyd/Lidocaine 10 ML ORAL.SUSP PO (19:58)
[2024-07-03] MEDS: Melatonin 3 MG TABLET 6 MG PO (00:19)
[2024-07-03 03:42] VITALS: BP 161/86; PULSE 68; RESP 18; TEMP 36.3; O2SAT 99
[2024-07-03] MEDS: Levothyroxine Sodium 25 MCG TABLET PO (05:04)
[2024-07-03 07:10] LABS: MANUAL DIFF FLAG NO
[2024-07-03 07:15] VITALS: BP 159/82; PULSE 65; RESP 16; TEMP 36.3; O2SAT 97
[2024-07-03 07:19] LABS: Basophils Percent Auto 0.5 % (0-2); Eosinophils Absolute Auto 0.3 X10*3/uL (0.0-0.4); Eosinophils Percent Auto 7.4 % (0-4); Hematocrit 31.2 % (37.0-47.0); Imm Gran Abs Auto 0.01 X10*3/uL (0.00-0.03); Imm Gran Pct Auto 0.3 % (0.0-0.4); Lymphocytes Absolute Auto 0.5 X10*3/uL (1.2-4.9); Lymphocytes Percent Auto 13.4 % (20-40); Mean Corpuscular HGB Conc 32.1 g/dl (31.0-35.0); Mean Corpuscular Hemoglobin 29.3 pg (27.0-33.0); Mean Corpuscular Volume 91.5 fL (80.0-98.0); Mean Platelet Volume 10.1 fL (9.4-12.3); Monocytes Absolute Auto 0.2 X10*3/uL (0.1-1.2); Monocytes Percent Auto 6.5 % (2-11); Neutrophils Absolute Auto 2.6 x10*3/uL (2.0-8.3); Neutrophils Percent Auto 71.9 % (45-73); Platelet Count 181 X10*3/uL (160-400); Red Blood Count 3.41 X10*6/uL (4.20-5.50); Red Cell Distribution Width 13.6 % (11.0-16.0); White Blood Count 3.7 X10*3/uL (4.8-10.8)
[2024-07-03 07:36] LABS: Anion Gap 13 (12-20); Blood Urea Nitrogen 8 mg/dL (9-16); Calcium 9.2 mg/dL (8.4-10.2); Carbon Dioxide 29 mmol/L (22-29); Chloride 101 mmol/L (96-108); Estimated Glomerular Filt Rate > 60; Glucose Random 88 mg/dL (60-115); Magnesium 1.8 mg/dL (1.6-2.6); Phosphorus 3.1 mg/dL (2.7-4.5); Potassium 3.8 mmol/L (3.3-5.1); Sodium 139 mmol/L (135-145)
[2024-07-03] MEDS: cefTRIAXone sodium 1 GM in 0.9 % Sodium Chloride 50 ML IV (07:53)
[2024-07-03] MEDS: Apixaban 5 MG TABLET PO (07:53)
--- NOTE | 2024-07-03 10:25 | MHC.CLN ---
F/U PT IS MODERATELY MALNOURISHED PT WITH MILDLY DEPLETED SUBCUTANEOUS FAT AND MUSCLE MASS WITH 7% NONSIGNIFICANT WT LOSS X6 MONTHS SEE FULL CLINICAL NUTRITION ASSESSMENT DATED 07/02/24 DIET RX: REGULAR-APPROPRIATE PT RECEIVING ENSURE BID AND MAGIC CUP WITH MEALS ENSURE BID PROVIDES 700KCALS, 40G PROTEIN WITH 100% ACCEPTANCE MAGIC CUP TID PROVIDES 870KCALS, 27G PROTEIN WITH 100% ACCEPTANCE MONITOR PO INTAKE AND ENCOURAGE SUPPLEMENTS
[2024-07-03 11:16] VITALS: BP 128/76; PULSE 86; RESP 16; TEMP 36.3; O2SAT 93
--- NOTE | 2024-07-03 11:57 | P.DS_ITS ---
DS: Providers Provider Date of Service: 07/03/24 Date of admission: 07/01/24 15:36 Date of discharge: 07/03/24 Primary care physician: Dominic Lin MD DS: Diagnosis Discharge Diagnosis (1) COPD (chronic obstructive pulmonary disease): Status: Acute (2) Cancer cachexia: Status: Acute (3) Sepsis: Status: Acute (4) Bandemia: Status: Acute (5) Pneumonia: Status: Acute (6) Supplemental oxygen dependent: Status: Acute DS: Summary Hospital Course Hospital Course: Admission note HPI per ICU provider. 69-year-old lady with underlying metastatic renal carcinoma on chemotherapy, COPD on home O2 up to 2 L, bronchiectasis presented with complaints of worsening alteration of mental status on background recent UTI. On ER evaluation patient also noted to be hypotensive with poor response to initial IV fluid resuscitation, started on empiric antibiotics and admitted to the intensive care unit. Hospital course The patient was admitted to ICU as sepsis with encephaloipathy. Treated with IV fluids and antibiotics with fair response as mentation improved back to baseline on Azithromycin and Ceftriaxone. Was able to ambulate on room air with no reported dyspnea as blood cultures remained negative after 48 hours. To be discharged on Azithromycin and Ceftin to finish total of 10 days. Discharge plan Continue Azitrhomycin and Ceftin as prescribed Follow up with PCP and oncology as outpatient. Time Attestation Discharge Coordination Time (in mins): 43 Quality: Safe Use of Opioids Does Pt have an Active Cancer Diagnosis on the Problem List?: Yes Opioid Measure Date for [facility] Report: 06/05/24 Opioid Measure Time for [facility] Report: 15:59 Quality: Stroke Does the patient have a stroke diagnosis?: No Physical Exam Vital Signs: Vital Signs: Last Vital Signs Temp 97.3 F 07/03/24 11:16 Pulse 86 07/03/24 11:16 Resp 16 07/03/24 11:16 BP 128/76 07/03/24 11:16 Pulse Ox 93 07/03/24 11:16 O2 Del Method Room Air 07/03/24 11:16 O2 Flow Rate 2 07/03/24 03:42 Oxygen Flow Rate 2 07/01/24 18:23 BMI result Body Mass Index 18.5 Const: Other: Constitutional : Awake, interactive, underwieght, not in distress Neck : Normal inspection, Supple Cardiovascular : RRR, no JVP, no lower extremity edema Respiratory : good bilateral air entry, no crackles, wheezes or rhonchi Gastrointestinal: soft, lax, Normal bowel sounds, Non tender Skin : Warm, Dry Neurological : Alert & oriented x3, No focal deficit DS: Data Data Completed and Pending Completed studies during hospitalization [Text1]: Procedures Drainage of Right Pleural Cavity with Drainage Device, Percutaneous Endoscopic Approach (10/06/23) Excision of Right Middle Lung Lobe, Percutaneous Endoscopic Approach, Diagnostic (10/06/23) Release Right Middle Lung Lobe, Percutaneous Endoscopic Approach (10/06/23) Release Right Upper Lung Lobe, Percutaneous Endoscopic Approach (10/06/23) Labs on day of discharge: Laboratory Results - last 24 hr 07/03/24 06:34 WBC 3.7 L RBC 3.41 L Hgb 10.0 L Hct 31.2 L MCV 91.5 MCH 29.3 MCHC 32.1 RDW 13.6 Plt Count 181 MPV 10.1 Immature Gran % (Auto) 0.3 Neut % (Auto) 71.9 Lymph % (Auto) 13.4 L [place] % (Auto) 6.5 Eos % (Auto) 7.4 H Baso % (Auto) 0.5 Lymph # (Auto) 0.5 L [place] # (Auto) 0.2 Eos # (Auto) 0.3 Baso # (Auto) 0.0 Abs Immat Gran (auto) 0.01 Absolute Neuts (auto) 2.6 Absolute Nucleated RBC 0.000 Nucleated RBC % (auto) 0.0 Sodium 139 Potassium 3.8 Chloride 101 Carbon Dioxide 29 Anion Gap 13 BUN 8 L Creatinine 0.63 Estim Creat Clear Calc 64.0 Estimated GFR > 60 Random Glucose 88 Calcium 9.2 D Phosphorus 3.1 Magnesium 1.8 Albumin 4.0 Preliminary micro results at discharge 07/01/24 11:55 Blood Culture - Preliminary Blood - Venous No growth after 24 hours. 07/01/24 11:51 Blood Culture - Preliminary Blood - Venous No growth after 24 hours. Imaging Chest x-ray: Radiologist's impression: ITS Impressions Chest CTA 07/01/24 11:16 IMPRESSION: No evidence of pulmonary embolism. Chain sutures at the periphery of the right middle lobe with associated cavitary and/or cystic bronchiectatic changes, grossly similar compared with May 15, 2024. Recommend correlation with surgical history. Dependent interstitial and airspace disease involving the right upper and right lower lobes, new or significantly worse compared with May 15, 2024. Differential diagnosis includes, but is not limited to, pneumonia. Small foci of of left upper lobe and left lower lobe tree in bud densities laterally, new or worse, nonspecific, possibly inflammatory/infectious. Subcentimeter right hilar nodes. Mild induration of mediastinal fat. 2.8 cm, round, hypodense, segment 7 hepatic lesion which appears to demonstrate wall irregularity as well as a mural nodule, similar compared with May 15, 2024, and probably decreased in size compared with February 27, 2024. Mildly distended gallbladder measuring approximately 11 cm in length by 5 cm in diameter. Mild, diffuse, nonspecific gallbladder wall thickening. No evidence of pericholecystic inflammatory change. Suspect fluid within the endometrial cavity. This is an abnormal finding in a postmenopausal woman. Recommend gynecological evaluation. Question vague, poorly circumscribed lytic lesion involving the inferior aspect of the L1 vertebral body. Neoplasm cannot be excluded (for example, metastatic disease). Status post left nephrectomy. Tip and balloon of Pena catheter lie within the urinary bladder lumen, which is distended. Additional findings as above. VTE: Negative. Electronically signed by: Anthony Díaz MD 07/01/2024 02:16 PM EDT RP Head CT 07/01/24 11:16 IMPRESSION: No acute intracranial pathology. Electronically signed by: Patrick Fernandez DO 07/01/2024 01:43 PM EDT RP Abdomen/Pelvis CT 07/01/24 12:41 IMPRESSION: No evidence of pulmonary embolism. Chain sutures at the periphery of the right middle lobe with associated cavitary and/or cystic bronchiectatic changes, grossly similar compared with May 15, 2024. Recommend correlation with surgical history. Dependent interstitial and airspace disease involving the right upper and right lower lobes, new or significantly worse compared with May 15, 2024. Differential diagnosis includes, but is not limited to, pneumonia. Small foci of of left upper lobe and left lower lobe tree in bud densities laterally, new or worse, nonspecific, possibly inflammatory/infectious. Subcentimeter right hilar nodes. Mild induration of mediastinal fat. 2.8 cm, round, hypodense, segment 7 hepatic lesion which appears to demonstrate wall irregularity as well as a mural nodule, similar compared with May 15, 2024, and probably decreased in size compared with February 27, 2024. Mildly distended gallbladder measuring approximately 11 cm in length by 5 cm in diameter. Mild, diffuse, nonspecific gallbladder wall thickening. No evidence of pericholecystic inflammatory change. Suspect fluid within the endometrial cavity. This is an abnormal finding in a postmenopausal woman. Recommend gynecological evaluation. Question vague, poorly circumscribed lytic lesion involving the inferior aspect of the L1 vertebral body. Neoplasm cannot be excluded (for example, metastatic disease). Status post left nephrectomy. Tip and balloon of Pena catheter lie within the urinary bladder lumen, which is distended. Additional findings as above. VTE: Negative. Electronically signed by: Anthony Díaz MD 07/01/2024 02:16 PM EDT Discharge Plan Discharge Anticipated Discharge Date/Time: 07/03/24 11:50 Patient Disposition: Home, Self-Care Discharge Diagnosis: Pneumonia Referrals: Dominic Lin MD [Primary Care Provider] - 1 Week Discharge Medications: New azithromycin 500 mg Tablet 500 mg PO Q24H Qty: 7 0RF cefuroxime axetil 500 mg tablet 500 mg PO BID Qty: 14 0RF Continued nifedipine 30 mg tablet extended release 30 mg PO DAILY Qty: 90 3RF atorvastatin 10 mg tablet 10 mg PO DAILY Qty: 90 2RF gabapentin 400 mg capsule 400 mg PO TID Qty: 270 1RF amitriptyline 75 mg tablet 75 mg PO DAILY Qty: 90 1RF sucralfate [Carafate] 100 mg/mL suspension 10 ml PO BID PRN (Reason: GERD symptoms) 30 Days Qty: 473 0RF Rx Instructions: swish in mouth and swallow; use after food/drink clonazepam 0.5 mg tablet 0.5 mg PO TID PRN (Reason: anxiety) 30 Days Qty: 90 0RF cholecalciferol (vitamin D3) 50 mcg (2,000 unit) capsule 50 mcg PO DAILY 90 Days Qty: 90 0RF bupropion HCl 150 mg tablet extended release 24 hr 150 mg PO DAILY Lenvima 10 mg/day (10 mg x 1) Capsule 20 mg PO DAILY Qty: 60 4RF Rx Instructions: 04/23/24 - reduce daily dose to Lenvima 10 mg PO Daily nystatin 100,000 unit/mL suspension 10 ml buccal TID PRN (Reason: thrush) Qty: 300 3RF Rx Instructions: swish 1/2 of dose in each side of the mouth for up to 5 minutes, then spit out the medicine pantoprazole 40 mg tablet,delayed release (DR/EC) 40 mg PO DAILY Qty: 90 1RF Eliquis 5 mg Tablet 5 mg PO BID Qty: 60 6RF sennosides [senna] 8.6 mg tablet 8.6 mg PO BID PRN (Reason: constipation) levothyroxine [Synthroid] 25 mcg tablet 25 mcg PO DAILY@0600 lidocaine HCl [Lidocaine Viscous] 2 % solution 1 appl MUCOUS MEMBRANE QID PRN (Reason: mouth sores) Magic Mouthwash Diphen/Lido/Antacid 1:1:1 240 mL suspension 10 ml PO QID PRN (Reason: sores) Rx Instructions: Lidocaine Viscous 2 % 80mL; diphenhydramine 12.5 mg/5 mL 80mL; aluminum-mag hydrox-simeth [id number]/5mL 80mL ondansetron 8 mg tablet,disintegrating 8 mg PO Q8H PRN (Reason: Nausea And Vomiting) albuterol sulfate 90 mcg/actuation HFA aerosol inhaler 2 puff inhalation DAILY PRN (Reason: shortness of breath or wheezing) Discharge Orders: Discharge Order (Routine); Ordered 07/03/24 Ordered By: Mic Calix Diet: Advance to usual diet Activity on Discharge: As tolerated Stand Alone Forms: Patient Portal Discharge page Print Language: Liberian Care Plan Goals: You were treated for sepsis from Pneumonia. responded well to IV antibiotics and fluids. Continue Azitrhomycin and Ceftin as prescribed Follow up with PCP and oncology as outpatient. Health Concerns: Read below Plan of Treatment: Read below Assessment: Read below Discharge Date/Time: 07/03/24 14:06
--- NOTE | 2024-07-03 12:14 | MHC.CM.PN ---
Pt is medically cleared for discharge home self-care today with resumption of [employer] home O2, family will transport her home.
--- NOTE | 2024-07-19 09:12 | P.CDIM_ITS ---
PROVIDER RESPONSE TEXT: To clarify, the appropriate diagnosis supported by the clinical indicators: Pneumonia: ruled in QUERY TEXT: PHYSICIAN'S DOCUMENTATION REQUEST Date of Query: 07/11/2024 08:56 AM EDT Patient Name: Elina Stewart Admit Date: 07/01/2024 Dear Mic Calix MD, RETROSPECTIVE QUERY A review of the medical record indicates additional documentation may be needed. Please review below and update the documentation accordingly. Clinical Indicators: ICU H&P 07/01 - COPD, Supplemental oxygen dependent. Septic encephalopathy with sepsis possible source. Pulmonary: no acute issues Ambulates on room air, no reported dyspnea, blood cultures negative. Discharge summary: Assessment and plan: Pneumonia Discharge diagnosis: Pneumonia Based on the above, consistency of a principal diagnosis documented only within the discharge summary : Pneumonia present on admission, possible, probable, after study ruled out etc. Other (explain) Clinically unable to determine (explain) Thank you, Toma Bernal, CCS, CDIS Use of terms such as suspected, likely, concern for, or probable (associated with a specific diagnosi s that is being evaluated, monitored, or treated as if it exists) are acceptable and can be coded in the inpatient se tting, when documented at the time of discharge. Please use your independent medical judgment in providing your response. THIS QUERY IS PART OF THE PERMANENT MEDICAL RECORD
== END 2024-07-03 14:06 | disposition home or self-care (01) | DRG 871 ==
LOC: HO.ED 14:26 → HO.EDOVER 15:41 → HO.ICU 15:55 → HO.IMC 07-02 12:30
PROVIDERS: Physician Assistant; Registered Nurse Community Health; Admitting Provider Internal Medicine Pulmonary Disease; Emergency Provider Emergency Medicine; PCP Internal Medicine; Visit Provider Student in an Organized Health Care Education/Training Program
DX: A41.9 Sepsis, unspecified organism (principal); G93.41 Metabolic encephalopathy; J18.9 Pneumonia, unspecified organism; C64.2 Malignant neoplasm of left kidney, except renal pelvis; C78.7 Secondary malignant neoplasm of liver and intrahepatic bile duct; E44.0 Moderate protein-calorie malnutrition; Z68.1 Body mass index [BMI] 19.9 or less, adult; J47.0 Bronchiectasis with acute lower respiratory infection; E88.A Wasting disease (syndrome) due to underlying condition; I95.9 Hypotension, unspecified; E83.42 Hypomagnesemia; Z90.5 Acquired absence of kidney; Z99.81 Dependence on supplemental oxygen; Z87.440 Personal history of urinary (tract) infections; Z87.891 Personal history of nicotine dependence; Z79.01 Long term (current) use of anticoagulants; Z79.890 Hormone replacement therapy; Z79.899 Other long term (current) drug therapy
CPT/HCPCS: 36415; 70450; 71275; 74177; 80048; 80053; 80307; 81001; 81003; 82040; 82803; 83605; 83735; 84100; 85007; 85025; 85027; 87040; 87086; 94640; 99285; C1758; J0613; J0696; J3370; J3475; P9047

== ENCOUNTER → 2024-07-01 15:36 | Outpatient (BNV) | payer OTHER, SELFPAY | PROVIDERS: Admitting Provider Internal Medicine Pulmonary Disease; Emergency Provider Emergency Medicine; PCP Internal Medicine; Visit Provider Internal Medicine Pulmonary Disease | DX: J44.9 Chronic obstructive pulmonary disease, unspecified (principal); Z99.81 Dependence on supplemental oxygen; N39.0 Urinary tract infection, site not specified; R64 Cachexia; A41.9 Sepsis, unspecified organism | CPT/HCPCS: 99233; 99291 ==

== ENCOUNTER → 2024-07-01 15:36 | Outpatient (BNV) | payer OTHER, SELFPAY | PROVIDERS: Admitting Provider Internal Medicine Pulmonary Disease; Emergency Provider Emergency Medicine; PCP Internal Medicine; Visit Provider Student in an Organized Health Care Education/Training Program | DX: J44.9 Chronic obstructive pulmonary disease, unspecified (principal); R64 Cachexia; A41.9 Sepsis, unspecified organism; D72.825 Bandemia; J18.9 Pneumonia, unspecified organism; Z99.81 Dependence on supplemental oxygen | CPT/HCPCS: 99239 ==

== ENCOUNTER 2024-07-05 17:09 | Outpatient (AMB) | payer OTHER, SELFPAY ==
--- NOTE | 2024-07-05 17:16 | A.OFFPC_ITS ---
Vital Signs 07/05/24 17:25 Height 5 ft 2 in Weight 99 lb 4 oz BMI 18.2 BP 108/70 Blood Pressure Location Lt brachial Position Sitting Pulse 86 Pulse Source Pulse Oximeter Pulse Oximetry (%) 96 Oxygen Delivery Method Room Air Intake Visit Reasons: tcm District Administrative Assistant Required: No Accompanied by: Spouse Allergies Sulfa (Sulfonamide Antibiotics) Allergy (Severe, Verified 07/05/24 17:27) ANAPHYLAXIS Penicillins Allergy (Intermediate, Verified 07/05/24 17:27) RASH aspirin [ASA] Adverse Reaction (Severe, Verified 07/05/24 17:27) severe stomach pain NSAIDS (Non-Steroidal Anti-Inflamma Adverse Reaction (Severe, Verified 07/05/24 17:27) severe stomach pain codeine [Codeine] Adverse Reaction (Intermediate, Verified 07/05/24 17:27) NAUSEA & VOMITING Medication List - Last Reconciled 07/05/24 by Dominic Lin MD albuterol sulfate 90 mcg/actuation 2 puffs inhalation DAILY PRN amitriptyline 75 mg PO DAILY apixaban (Eliquis) 5 mg PO BID atorvastatin 10 mg PO DAILY azithromycin 500 mg PO Q24H bupropion HCl XL 150 mg PO DAILY cefuroxime axetil 500 mg PO BID cholecalciferol (vitamin D3) 50 mcg PO DAILY 90 days clonazepam 0.5 mg PO TID PRN 30 days gabapentin 400 mg PO TID lenvatinib (Lenvima) 20 mg (2 x 10 mg/day (10 mg x 1)) PO DAILY levothyroxine (Synthroid) 25 mcg PO DAILY@0600 lidocaine HCl 2% (Lidocaine Viscous) 1 appl mucous membrane QID PRN Magic Mouthwash Diphen/Lido/Antacid 1:1:1 10 mL PO QID PRN nifedipine ER 30 mg PO DAILY nystatin 10 mL buccal TID PRN ondansetron 8 mg PO Q8H PRN pantoprazole 40 mg PO DAILY sennosides (senna) 8.6 mg PO BID PRN sucralfate (Carafate) 10 mL PO BID PRN 30 days Tobacco use date assessed: 07/05/24 Fall risk assessment: No Falls in past year Last assessed Fall Risk: 07/05/24 Dental Screening Dental Screen Date: 07/05/24 Did you have a dental visit in the last 12 months?: No Did you have a dental problem in the last 6 months where you did not have access to dental care?: No Was dental information given to patient?: Patient has dentist HPI tcm HPI Details Patient comes in today for her (TCM) follow up visit - she was last seen for follow up by me almost a year ago on 08/23/2023 She was just discharged from [facility] a couple of days ago, where she was admitted for a few days for sepsis with encephalopathy after she was sent from oncology to the ER earlier this week for worsening mental status changes She was found to be hypotensive in the ER upon arrival, with poor response to IV fluid resuscitation and was subsequently admitted to the ICU She responded promptly to IV fluids and Abx Tx with Azithromycin and Ceftriaxone and these were later transitioned to oral Azithromycin and Ceftin prior to her discharge from the hospital and she is supposed to complete 10 days of antibiotic Tx Patient states that she is still somewhat weak and feels fatigued all the time but feels okay otherwise and is still on her antibiotics She is currently still on immunotherapy for her metastatic renal cell carcinoma with Pembrolizumab (Keytruda) and Lenvatinib (Lenvima) that were started on 11/07/2023 and she has had 11 cycles of the treatments so far She was first diagnosed with renal cell carcinoma in early 2019 after a left upper pole renal lesion was seen incidentally on chest CT done in 09/2019; she eventually underwent a left laparoscopic hand-assisted nephrectomy back on 02/18/2020 Since then, she's had metastasis of her carcinoma found in the liver and lungs and underwent VATS right middle lobe resection earlier this year in October 2023 and then started on her current immunotherapy Rx a few weeks later Her most recent chest and abdominal CT done on 05/16/2024 revealed (+) significant improvement in both pulmonary and hepatic metastasis compared to her imaging studies earlier this year Patient denies any fever, headaches or dizziness Denies any chest pains; she feels SOB even with minimal exertion and overall, cannot do much in terms of physical activity lately No nausea/vomiting, no abdominal pain No change in bowel habits noted She is currently requesting for Rx for some Oxycodone for pain - states that she does not really take them regularly but there are some days when she is in a lot of pain and would like to have something she can take when needed TCM TCM Information Date of Discharge 07/03/24 Discharged From [facility] Interactive Contact Date (Reference documentation from this date) 07/04/24 [facility] Medical History (Updated 07/06/24 @ 07:10 by Dominic Lin MD) Acquired hypothyroidism COPD (chronic obstructive pulmonary disease) Liver lesion Right lower lobe lung mass Post-operative nausea and vomiting Dry eye COVID-19 COPD (chronic obstructive pulmonary disease) Malignant neoplasm of left kidney Vitamin D deficiency Depression Primary osteoarthritis of knees, bilateral Pure hypercholesterolemia Elevated C-reactive protein (CRP) Palpitations Constipation Obstructive sleep apnea Anxiety Benign essential hypertension Renal cell carcinoma of left kidney Oral thrush Lumbar degenerative disc disease Status post fall Right foot pain Chronic allergic bronchitis GERD (gastroesophageal reflux disease) Surgical History Metastatic renal cell carcinoma to lung H/O kidney removal Hx of oral surgery Hx of tonsillectomy Pulmonary nodule 1 cm or greater in diameter History of nephrectomy Family History Father Hypertension CVD (cardiovascular disease) Cancer Mother Hypertension Substance abuse Other Mental health problem Social History Household Members: Spouse Household Members Other:: and brother and sister Housing: House Are you a primary human services care specialist to a significant other at home: No Do you presently have visiting nurse or other home services: Yes Alcohol intake: never Comment: COUNTS CORRECT Patient Tobacco Use Status: Former Tobacco user Tobacco use type: Cigarette Cigarette Packs Per Day: 1.5 Years Smoked: 30 e-Cigarette/Vaping Use: Currently Using Second Hand Smoke Exposure: No Advance Directives Date on File: 11/29/23 service: No Current occupational status: disabled Cognitive needs: No Hearing needs: No Vision needs: No Questionnaire PHQ-9 Over the last 2 weeks, how often have you been bothered by any of the following problems? 1. Little interest or pleasure in doing things: more than half the days 2. Feeling down, depressed, or hopeless: several days 3. Trouble falling or staying asleep, or sleeping too much: more than half the days 4. Feeling tired or having little energy: several days 5. Poor appetite or overeating: several days 6. Feeling bad about yourself - or that you are a failure or have let yourself or your family down: not at all 7. Trouble concentrating on things, such as reading the newspaper or watching television: not at all 8. Moving or speaking so slowly that other people could have noticed. Or the opposite - being so fidgety or restless that you have been moving around a lot more than usual: not at all 9. Thoughts that you would be better off or of hurting yourself in some way: not at all Total score: 7 Depression Screening Interpretation: Positive Depression Screening Follow-up: Existing condition and In treatment Depression Screening Done: Yes 68159 - PHQ-9 Billing: Yes Source: Developed by Drs. Gary Bay, Laura Davenport, Cullen Rivera and colleagues, with an educational willy from [employer]. Thrive Questionnaire Date Thrive assessed: 07/05/24 I am a: Patient What is your living situation today?: I have a steady place to live Within the past 12 months, did the food you bought not last and you didn't have the money to get more?: Never true Within the past 12 months, did you worry whether your food would run out before you got money to buy more?: I choose not to answer this question Do you have trouble paying for medicines?: No Do you have trouble getting transportation to medical appointments?: No Do you have trouble paying your heating and electricity bill?: No Do you have trouble taking care of your child, family member or friend?: No Do you have trouble with day-to-day activities such as bathing, preparing meals, shopping, managing finances, etc.?: No Are you currently unemployed and looking for a job?: No Are you interested in more education?: No Please select the resources that you would like help with: None Currently or been in a relationship where the following occur: No concerns reported THRIVE Score: 0 AUDIT C Alcohol Use Questionnaire (AUDIT-C) 1. How often do you have a drink containing alcohol?: Never 3. How often do you have six or more drinks on one occasion?: Never Total Score: 0 Score Reviewed/Action Taken: Yes MARCELLUS-7 AMB Questionnaire MARCELLUS-7 Date MARCELLUS - 7 assessed: 07/05/24 Feeling nervous, anxious, or on edge: 1 = Several days Not being able to stop or control worryin = Several days Worrying too much about different things: 1 = Several days Trouble relaxin = Several days Being so restless that it is hard to sit still: 1 = Several days Becoming easily annoyed or irritable: 1 = Several days Feeling afraid as if something awful might happen: 1 = Several days Total MARCELLUS-7 score (0-4 normal; 5-9 mild; 10-14 moderate; 15-21 severe): 7 Source: Developed by Drs. Gary Bay, Laura Davenport, Cullen Rivera and colleagues, with an educational willy from [employer]. MARCELLUS-7 Assessment Billing MARCELLUS-7 Assessment Tool: MARCELLUS-7 Assessment 67295 Review of Systems Const Denies chills, Reports difficulty sleeping, Reports fatigue, Denies fever(s) and Denies headache(s) ENT Denies dysphagia, Denies dizziness, Denies otalgia, Denies headache(s), Denies neck pain, Denies odynophagia and Denies sore throat Card Denies chest pain, Denies palpitations and Reports dyspnea on exertion Resp Denies chest congestion, Denies cough, Reports dyspnea on exertion and Denies wheezing GI Denies abdominal pain, Denies constipation, Denies dysphagia, Denies heartburn, Denies diarrhea, Denies nausea, Denies odynophagia and Denies vomiting Denies difficulty voiding, Denies nocturia, Denies dysuria and Reports urinary incontinence (at times) Musc Reports back pain (on and off, over the right lower back), Reports arthralgias (in both knees, especially when using stairs), Denies neck pain and Reports radiating pain into limb (right low back pain radiates down the side of the right hip and thigh) Skin/Breast Denies rash Neuro Reports confusion (on and off), Denies dizziness, Denies headache(s) and Reports memory loss (per ) Psych Reports confusion (on and off) and Reports memory loss (per ) Endo Reports fatigue and Denies palpitations Aller/Immun Denies wheezing Physical exam (Primary Care) Vital Signs: Last Vital Signs Pulse 86 07/05/24 17:25 BP 108/70 07/05/24 17:25 Pulse Ox 96 07/05/24 17:25 Oxygen Delivery Method Room Air 07/05/24 17:25 BMI result Body Mass Index 18.2 Tobacco/Smoking Status: Tobacco use Status Tobacco use date assessed 07/05/24 07/05/24 17:27 Patient Tobacco Use Status Former Tobacco user 07/05/24 17:17 Tobacco use type Cigarette 07/05/24 17:17 e-Cigarette/Vaping Use Currently Using 07/05/24 17:17 PHQ-9: PHQ-9 Score PHQ-9: Total score 7 07/05/24 23:10 Depression Screening Interpretation: Positive Depression Screening Follow-up: Existing condition and In treatment Thrive Assessment: Date of Thrive Assessment Date Thrive assessed 07/05/24 07/05/24 17:28 Currently or been in a relationship where the following occur: No concerns reported Const General: confusion (on and off) Orientation/consciousness: confusion (on and off) HENMT Ears: TM's normal bilaterally and EAC's normal Throat: Yes posterior oropharynx normal and Yes tonsils normal Neck Neck: Yes no lymphadenopathy and Yes supple Thyroid: Thyroid normal Resp Auscultation: no crackles, no rales, rhonchi (occasional) throughout, no wheezes, diminished lung sounds bilateral and bronchial breath sounds Cardio Rate: regular rate Rhythm: regular rhythm Heart sounds: no murmurs GI Palpation (GI): Soft to palpation and nontender Auscultation: normal bowel sounds General: Yes no CVA tenderness Back/Spine/Pelvis Back: no CVA tenderness Cervical Spine: Cervical spine tenderness (mild) Thoracic/Lumbar Spine: lumbar spinal tenderness Skin Rashes: no rashes Neuro General: confusion (on and off) Extrem General: Yes no clubbing, cyanosis or edema Right lower extremity: knee Details: tenderness Left lower extremity: knee Details: tenderness Results Reviewed Results Reviewed: Laboratory Tests 07/01/24 07/02/24 07/03/24 14:23 05:30 06:34 WBC 3.7 L Hgb 10.0 L Hct 31.2 L Plt Count 181 Sodium 139 Potassium 3.8 Creatinine 0.63 Estimated GFR > 60 Random Glucose 88 Lactic Acid F/U @ 2Hr 1.5 Calcium 9.2 D Phosphorus 3.1 Magnesium 1.8 AST 14 ALT 10 Coding Level of Care Code TCM Mod MDM <= 7 Days Diagnoses Sepsis without acute organ dysfunction, due to unspecified organism A41.9 Sepsis type: sepsis due to unspecified organism Sepsis acute organ dysfunction status: without acute organ dysfunction Renal cell carcinoma of left kidney metastatic to other site C64.2 Laterality: left Encephalopathy due to infection G93.49; B99.9 Fluid in endometrial cavity N85.9 Lytic lesion of bone on x-ray M89.9 Chronic pulmonary embolism without acute cor pulmonale, unspecified pulmonary embolism type I27.82 Pulmonary embolism type: unspecified Chronicity: chronic Acute cor pulmonale presence: without acute cor pulmonale Chronic obstructive pulmonary disease, unspecified COPD type J44.9 COPD type: unspecified COPD Pure hypercholesterolemia E78.00 Benign essential hypertension I10 Degeneration of intervertebral disc of lumbar region with discogenic back pain and lower extremity pain M51.362 Disc-related pain type: discogenic back pain and lower extremity pain Acquired hypothyroidism E03.9 Gastroesophageal reflux disease without esophagitis K21.9 Esophagitis presence: without esophagitis Vitamin D deficiency E55.9 Anxiety F41.9 Episode of recurrent major depressive disorder, unspecified depression episode severity F33.9 Depression Type: major depressive disorder Major depression recurrence: recurrent Active/Remission status: currently active Major depression episode severity: unspecified Additional Codes MARCELLUS-7 Assessment Billing - MARCELLUS-7 Assessment Tool: MARCELLUS-7 Assessment 16163 ([id number]) Assessment & Plan Assessment & Plan (1) Sepsis: Code(s): A41.9 - Sepsis, unspecified organism Category: Medical Qualifiers: Sepsis type: sepsis due to unspecified organism Sepsis acute organ d ysfunction status: without acute organ dysfunction Qualified Code(s): A41.9 - Sepsis, unspecified organism Plan: Resolving This was likely due to source but she also had pneumonia She presented as well with encephalopathic symptoms when she was sent to the hospital, with acute mental status changes, but is now back to her baseline (per her ) She is currently still on Azithromycin 500 mg QD and Ceftin 500 mg QD to complete a total of 10 days of dual Abx Tx (2) Metastatic renal cell carcinoma: Code(s): C64.9 - Malignant neoplasm of unspecified kidney, except renal pelvis Category: Medical Qualifiers: Laterality: left Qualified Code(s): C64.2 - Malignant neoplasm of left kidney, except renal pelvis Plan: Patient underwent a left laparoscopic hand-assisted nephrectomy back on 02/18/[address] Mendoza for her primary renal cell cancer (pathology was clear cell carcinoma), which was diagnosed in early 2019 after a left upper pole renal lesion was seen incidentally on chest CT done in 09/2019 Since then, she's had metastasis of her carcinoma found in the liver and lungs and underwent VATS right middle lobe resection earlier this year in October 2023 and then started on her current immunotherapy Rx a few weeks later on 11/07/2023 She is currently still on immunotherapy with Pembrolizumab (Keytruda) and Lenvatinib (Lenvima) and she has had 11 cycles of the treatments so far Her most recent chest and abdominal CT done on 05/16/2024 revealed (+) significant improvement in both pulmonary and hepatic metastasis compared to her imaging studies earlier this year although there are a couple of new findings that need further evaluation (+) possible fluid within the endometrial cavity is noted, which is abnormal in a postmenopausal woman and I will refer to Dr. Bermudez for urgent gynecological evaluation There is also a questionable vague, poorly circumscribed lytic lesion involving the inferior aspect of the L1 vertebral body seen on her recent CT and neoplasm (metastatic disease) cannot be excluded Patient has an appointment coming up with Dr. Delacruz in a couple of weeks and she is instructed to speak with Dr. Delacruz further about this as she will likely need further work up on this, either with PET scan or bone scan (3) Encephalopathy due to infection: Code(s): G93.49 - Other encephalopathy; B99.9 - Unspecified infectious disease Category: Medical Plan: Improved - this was likely due to her recent infection (UTI and pneumonia) and she is currently back to her baseline mental status (4) Fluid in endometrial cavity: Code(s): N85.9 - Noninflammatory disorder of uterus, unspecified Category: Medical Plan: This was seen incidentally on her most recent chest and abdominal CT done on 05/16/2024 Will refer her to Dr. Bermudez for urgent gynecology evaluation and management (5) Lytic lesion of bone on x-ray: Code(s): M89.9 - Disorder of bone, unspecified Category: Medical Plan: This was also seen incidentally on her most recent chest and abdominal CT done on 05/16/2024 - (?) vague, poorly circumscribed lytic lesion involving the inferior aspect of the L1 vertebral body Considering her medical history and current issues, the possibility of neoplasm/metastatic disease should be considered, and she will likely need to have a PET scan or bone scan for further evaluation Patient has an appointment coming up with Dr. Delacruz in a couple of weeks and she is instructed to speak with Dr. Delacruz further about this Have advised her to let us know MERRY if there is anything she needs ordered from our side and we will attend to this right away (6) Pulmonary embolism: Code(s): I26.99 - Other pulmonary embolism without acute cor pulmonale Category: Medical Qualifiers: Pulmonary embolism type: unspecified Chronicity: chronic Acute cor pulmonale presence: without acute cor pulmonale Qualified Code(s): I27.82 - Chronic pulmonary embolism Plan: Continue Apixaban 5 mg BID (7) COPD (chronic obstructive pulmonary disease): Code(s): J44.9 - Chronic obstructive pulmonary disease, unspecified Category: Medical Qualifiers: COPD type: unspecified COPD Qualified Code(s): J44.9 - Chronic obstructive pulmonary disease, unspecified Plan: Continue Incruse Ellipta 62.5 mcg 1 inhalation QD and Albuterol HFA 1 to 2 inhalations Q 6 hours PRN Follow up with pulmonary as scheduled (8) Pure hypercholesterolemia: Code(s): E78.00 - Pure hypercholesterolemia, unspecified Category: Medical Plan: Reinforced low cholesterol diet Patient has not had her fasting lipids checked in over a year now - her total cholesterol was at 141 mg/dl and LDL cholesterol at 80 mg/dl when they were last checked on 05/20/2023 Continue Atorvastatin 10 mg QD Will have her recheck her labs and fasting lipids in 2 to 3 months for follow up (9) Benign essential hypertension: Code(s): I10 - Essential (primary) hypertension Category: Medical Plan: Reinforced low sodium diet - goal is systolic BP of 120 mm or less Continue Nifedipine ER 30 mg QD (10) Lumbar degenerative disc disease: Code(s): M51.36 - Other intervertebral disc degeneration, lumbar region Category: Medical Qualifiers: Disc-related pain type: discogenic back pain and lower extremity pain Qualified Code(s): M51.362 - Other intervertebral disc degeneration, lumbar region with discogenic back pain and lower extremity pain Plan: Reinforced activity and weight-lifting restrictions although patient states that she has not been able to do much in terms of activity lately Continue Gabapentin 400 mg TID; will refill her Oxycodone 5 mg Q 8 hours PRN today (11) Acquired hypothyroidism: Code(s): E03.9 - Hypothyroidism, unspecified Category: Medical Plan: Continue Levothyroxine 25 mcg QD Will recheck her TFTs in 3 months for follow up (12) GERD (gastroesophageal reflux disease): Code(s): K21.9 - Gastro-esophageal reflux disease without esophagitis Category: Medical Qualifiers: Esophagitis presence: without esophagitis Qualified Code(s): K21.9 - Gastro-esophageal reflux disease without esophagitis Plan: Dietary restrictions reinforced Continue Pantoprazole 40 mg QD and Carafate 10 ml BID PRN (13) Vitamin D deficiency: Code(s): E55.9 - Vitamin D deficiency, unspecified Category: Medical Plan: Continue Vitamin D3 2000 units QD (14) Anxiety: Code(s): F41.9 - Anxiety disorder, unspecified Category: Medical Plan: Continue Clonazepam 0.5 mg TID PRN (15) Depression: Code(s): F32.A - Depression, unspecified Category: Medical Qualifiers: Depression Type: major depressive disorder Major depression recurrence: recurrent Active/Remission status: currently active Major depression episode severity: unspecified Qualified Code(s): F33.9 - Major depressive disorder, recurrent, unspecified Plan: Continue Bupropion XL 150 mg QD and Amitriptyline 75 mg Q HS Plan Follow up in 3 months Orders: Orders Complete Blood Count Auto Diff 3 Months D64.9 - Anemia, unspecified Lipid Panel 3 Months E78.00 - Pure hypercholesterolemia, unspecified UA CC w/rflx Micro + Cult 3 Months R30.0 - Dysuria Vitamin B12 and Folate 3 Months E53.8 - Deficiency of other specified B group vitamins Comprehensive [place]. Panel Fast 3 Months E78.00 - Pure hypercholesterolemia, unspecified Free T4 (Free Thyroxine) 3 Months E03.9 - Hypothyroidism, unspecified Thyroid Stimulating Hormone 3 Months E03.9 - Hypothyroidism, unspecified Vitamin D 25-OH Total 3 Months E55.9 - Vitamin D deficiency, unspecified Referrals [employer] Referral N85.9 - Noninflammatory disorder of uterus, unspecified Medications: New umeclidinium 62.5 mcg/actuation (Incruse Ellipta) 1 inh inhalation DAILY 30 ea 12RF Changed From oxycodone 5 mg PO Q4H PRN 0RF pain C64.9 - Malignant neoplasm of unspecified kidney, except renal pelvis To oxycodone 5 mg PO Q8H PRN 30 tabs 0RF pain C64.9 - Malignant neoplasm of unspecified kidney, except renal pelvis
[2024-07-05 17:25] VITALS: BP 108/70; PULSE 86; O2SAT 96; BMI 18.2
== END 2024-07-05 17:47 | disposition home or self-care (01) ==
PROVIDERS: PCP Internal Medicine; Visit Provider Internal Medicine
DX: A41.9 Sepsis, unspecified organism (principal); C64.2 Malignant neoplasm of left kidney, except renal pelvis; I27.82 Chronic pulmonary embolism; J44.9 Chronic obstructive pulmonary disease, unspecified; F33.9 Major depressive disorder, recurrent, unspecified; G93.49 Other encephalopathy; B99.9 Unspecified infectious disease; N85.9 Noninflammatory disorder of uterus, unspecified; M89.9 Disorder of bone, unspecified; E78.00 Pure hypercholesterolemia, unspecified; I10 Essential (primary) hypertension; M51.362 Other intervertebral disc degeneration, lumbar region with discogenic back pain and lower extremity pain

== ENCOUNTER → 2024-07-05 17:09 | Outpatient (BNVA) | payer OTHER, SELFPAY | PROVIDERS: PCP Internal Medicine; Visit Provider Internal Medicine | DX: A41.9 Sepsis, unspecified organism (principal); C64.2 Malignant neoplasm of left kidney, except renal pelvis; G93.49 Other encephalopathy; B99.9 Unspecified infectious disease; M89.9 Disorder of bone, unspecified; I27.82 Chronic pulmonary embolism; J44.9 Chronic obstructive pulmonary disease, unspecified; E78.00 Pure hypercholesterolemia, unspecified; I10 Essential (primary) hypertension; M51.362 Other intervertebral disc degeneration, lumbar region with discogenic back pain and lower extremity pain; E03.9 Hypothyroidism, unspecified; K21.9 Gastro-esophageal reflux disease without esophagitis; E55.9 Vitamin D deficiency, unspecified; F41.9 Anxiety disorder, unspecified; F33.9 Major depressive disorder, recurrent, unspecified | CPT/HCPCS: 96127; 99495 ==

== ENCOUNTER → 2024-08-07 11:06 | Outpatient (REF) | payer OTHER, SELFPAY ==
--- NOTE | ~2024-08-07 | NM_ITS ---
EXAMINATION: NM BONE SCAN OF THE WHOLE BODY CLINICAL INFORMATION: L1 lesion on CT scan. Left kidney removed 2019. COMPARISON: No previous bone scan is available for comparison. Radiographs of the chest dated 06/18/2024 are available for comparison. TECHNIQUE: Multiple gamma scintillation camera images of the whole body were performed 2.25 hours following the intravenous administration of 18 mCi Tc-99m MDP. FINDINGS: In the head, no significant abnormalities are present. In the thoracic cage and upper extremities, no significant abnormalities are present. In the spine, there is a mild thoracolumbar scoliosis with lumbar convexity to the left. There is no abnormality present corresponds to the suspected abnormality at L1 on the 07/01/2024 CT scan of the abdomen and pelvis. In the pelvis, no significant abnormalities are present. In the lower extremities, there is minimally increased activity in the right first tarsometatarsal joint region, likely arthritic. No other definite bony abnormalities are noted. The urinary bladder and faint visualization of the right kidney is noted. The left kidney has been resected. NM/NM bone scan whole body IMPRESSION: No significant abnormalities are present. The L1 vertebra appears unremarkable. Absent left kidney. Electronically signed by: Doc Lou MD 08/08/2024 05:39 PM [facility]
== END ==
LOC: HO.NUCMED 11:06
PROVIDERS: PCP Internal Medicine; Visit Provider Internal Medicine Medical Oncology
DX: C64.2 Malignant neoplasm of left kidney, except renal pelvis (principal)
CPT/HCPCS: 78306; A9503

== ENCOUNTER 2024-08-08 15:31 | Outpatient (AMB) | payer OTHER, SELFPAY ==
[2024-08-08 15:37] VITALS: BP 98/62; PULSE 104; O2SAT 100; BMI 18.5
--- NOTE | 2024-08-08 15:37 | A.OFFVIS_ITS ---
Vital Signs 08/08/24 15:37 Height 5 ft 2 in Weight 101 lb BMI 18.5 BP 98/62 Blood Pressure Location Rt brachial Position Sitting Pulse 104 H Pulse Source Doppler Pulse Oximetry (%) 100 Oxygen Delivery Method Nasal Cannula Oxygen Flow Rate 3 Intake Visit Reasons: COPD Allergies Sulfa (Sulfonamide Antibiotics) Allergy (Severe, Verified 07/05/24 17:27) ANAPHYLAXIS Penicillins Allergy (Intermediate, Verified 07/05/24 17:27) RASH aspirin [ASA] Adverse Reaction (Severe, Verified 07/05/24 17:27) severe stomach pain NSAIDS (Non-Steroidal Anti-Inflamma Adverse Reaction (Severe, Verified 07/05/24 17:27) severe stomach pain codeine [Codeine] Adverse Reaction (Intermediate, Verified 07/05/24 17:27) NAUSEA & VOMITING HPI HPI COPD: Details: 69-year-old lady, former 30+ pack-year smoker, quit 2011 after used vaping devices followed for bronchiectasis, abnormal chest imaging, and emphysema.?PET/CT demonstrate activity in the right-sided 1 cm nodule. Patient was referred to thoracic surgery and excisional biopsy was performed that demonstrated metastatic renal cancer. Patient is currently under oncology care on chemotherapy. She denies exacerbations of her underlying respiratory symptoms. She does have significant cachexia that started to improve after the last office visit. She continues on Incruse and albuterol MDI with good control of her underlying symptoms. [facility] Medical History (Updated 08/08/24 @ 15:56 by Lorenzo Rosenbaum MD) Supplemental oxygen dependent Lytic lesion of bone on x-ray Fluid in endometrial cavity Physical deconditioning Cancer cachexia Acquired hypothyroidism COPD (chronic obstructive pulmonary disease) Liver lesion Right lower lobe lung mass Post-operative nausea and vomiting Dry eye COVID-19 COPD (chronic obstructive pulmonary disease) Malignant neoplasm of left kidney Vitamin D deficiency Depression Primary osteoarthritis of knees, bilateral Pure hypercholesterolemia Elevated C-reactive protein (CRP) Palpitations Constipation Obstructive sleep apnea Anxiety Benign essential hypertension Renal cell carcinoma of left kidney Oral thrush Lumbar degenerative disc disease Status post fall Right foot pain Chronic allergic bronchitis GERD (gastroesophageal reflux disease) Surgical History Metastatic renal cell carcinoma to lung H/O kidney removal Hx of oral surgery Hx of tonsillectomy Pulmonary nodule 1 cm or greater in diameter History of nephrectomy Family History Father Hypertension CVD (cardiovascular disease) Cancer Mother Hypertension Substance abuse Other Mental health problem Social History Household Members: Spouse Household Members Other:: and brother and sister Housing: House Are you a primary respiratory care program director to a significant other at home: No Do you presently have visiting nurse or other home services: Yes Alcohol intake: never Comment: COUNTS CORRECT Patient Tobacco Use Status: Former Tobacco user Tobacco use type: Cigarette Cigarette Packs Per Day: 1.5 Years Smoked: 30 e-Cigarette/Vaping Use: Currently Using Second Hand Smoke Exposure: No Advance Directives Date on File: 11/29/23 service: No Current occupational status: disabled Cognitive needs: No Hearing needs: No Vision needs: No Review of Systems Card Denies chest pain, Denies dyspnea, Denies orthopnea and Denies paroxysmal nocturnal dyspnea Resp Denies cough, Denies hemoptysis, Denies excessive phlegm production, Denies dyspnea and Denies wheezing Aller/Immun Denies wheezing Physical Exam Vital Signs: Last Vital Signs Pulse 104 H 08/08/24 15:37 BP 98/62 08/08/24 15:37 Pulse Ox 100 08/08/24 15:37 Oxygen Delivery Method Nasal Cannula 08/08/24 15:37 Oxygen Flow Rate 3 08/08/24 15:37 BMI result Body Mass Index 18.5 Const General: no acute distress and alert Nutritional Appearance: thin Orientation/consciousness: Other orientation findings ( oriented) HEENT Head: Yes atraumatic Eyes General: appearance normal, both eyes and all related structures Sclerae: sclerae normal EOM: EOMs intact bilaterally Neck Neck: Yes supple Lymphatic: no lymphadenopathy noted Resp Effort & Inspection: normal respiratory effort and no use of accessory muscles Auscultation: clear to auscultation bilaterally Cardio Rate: regular rate Rhythm: regular rhythm Heart sounds: no gallops, no murmurs and no rubs Skin General skin exam: other ( warm) Extrem General: No clubbing, No cyanosis and No edema Assessment & Plan Assessment & Plan (1) Bronchiectasis: Code(s): J47.9 - Bronchiectasis, uncomplicated Category: Medical Plan: No recent exacerbations. Continue to monitor clinically. (2) Pulmonary emphysema: Code(s): J43.9 - Emphysema, unspecified Category: Medical Plan: Controlled on current regimen of Incruse and albuterol MDI. Continue current regimen. (3) Supplemental oxygen dependent: Code(s): Z99.81 - Dependence on supplemental oxygen Category: Medical Plan: Continue supplemental oxygen to maintain O2 saturation of 88-92%. (4) Metastatic renal cell carcinoma: Code(s): C64.9 - Malignant neoplasm of unspecified kidney, except renal pelvis Category: Medical Qualifiers: Laterality: left Qualified Code(s): C64.2 - Malignant neoplasm of left kidney, except renal pelvis Plan: With lung/liver mets, currently under oncology care on chemotherapy. Coding Level of Care Code Est Pt Level 4 (61165) Complex EM visit Add On G2211 Diagnoses Bronchiectasis J47.9 Pulmonary emphysema J43.9 Supplemental oxygen dependent Z99.81 Renal cell carcinoma of left kidney metastatic to other site C64.2 Laterality: left
== END 2024-08-08 15:58 | disposition home or self-care (01) ==
LOC: HO.HPS 15:31
PROVIDERS: PCP Internal Medicine; Visit Provider Internal Medicine Pulmonary Disease
DX: J47.9 Bronchiectasis, uncomplicated (principal); J43.9 Emphysema, unspecified; Z99.81 Dependence on supplemental oxygen; C64.2 Malignant neoplasm of left kidney, except renal pelvis
CPT/HCPCS: 99214; G2211

== ENCOUNTER → 2024-08-08 15:31 | Outpatient (BNVA) | payer OTHER, SELFPAY | PROVIDERS: PCP Internal Medicine; Visit Provider Internal Medicine Pulmonary Disease | DX: J47.9 Bronchiectasis, uncomplicated (principal); J43.9 Emphysema, unspecified; C64.2 Malignant neoplasm of left kidney, except renal pelvis; C78.00 Secondary malignant neoplasm of unspecified lung; C78.7 Secondary malignant neoplasm of liver and intrahepatic bile duct; Z99.81 Dependence on supplemental oxygen | CPT/HCPCS: 99212 ==

== ENCOUNTER 2024-08-13 15:34 | Outpatient (REF) | payer OTHER, SELFPAY ==
--- NOTE | ~2024-08-13 | XR_ITS ---
EXAMINATION: XR SACRUM AND COCCYX CLINICAL INFORMATION: Pain over sacrum status post fall. R/O fracture COMPARISON: None available. TECHNIQUE: 3 views of the sacrum were obtained. FINDINGS: There is a transverse minimally displaced fracture through 6 of the inferior sacrum. This lies just above the coccyx. There is approximately 2 mm of displacement of the distal fracture fragment. No additional fractures identified. No suspicious focal bony lesion. Mild degenerative changes of the SI joints and lower lumbar spine. No soft tissue abnormalities. XR/XR sacrum coccyx min 2V IMPRESSION: 1. Transverse minimally displaced fracture through S6 of the inferior sacrum, just above the coccyx. Electronically signed by: Davis De La Rosa MD 08/23/2024 10:27 AM [facility] CORTEZ
== END 2024-08-13 15:35 | disposition home or self-care (01) ==
LOC: HO.XRAY 15:34
PROVIDERS: PCP Internal Medicine; Visit Provider Internal Medicine Medical Oncology
DX: M25.561 Pain in right knee (principal); M25.562 Pain in left knee; M54.9 Dorsalgia, unspecified
CPT/HCPCS: 72220

== ENCOUNTER → 2024-08-13 15:39 | Outpatient (BNV) | payer OTHER, SELFPAY | PROVIDERS: PCP Internal Medicine; Visit Provider Radiology Diagnostic Radiology | DX: M54.18 Radiculopathy, sacral and sacrococcygeal region (principal) | CPT/HCPCS: 72220 ==

== ENCOUNTER 2024-09-16 09:22 | Inpatient (IN) | payer OTHER, SELFPAY ==
[2024-09-16] VITALS (11 sets, daily range): BP systolic 100–122; BP diastolic 55–78; PULSE 90–130; RESP 13–20; TEMP 36.4–39.1; O2SAT 90–98; BMI 19.1; BMI 19.7
--- NOTE | ~2024-09-16 | CT_ITS ---
EXAMINATION: CT CHEST WITHOUT CONTRAST CLINICAL INFORMATION: pneumonia, also history of metastatic renal ca COMPARISON: CT angiography of the chest July 01, 2024 TECHNIQUE: Multidetector volumetric CT imaging of the chest was done. Axial MIP volume rendering provided. Sagittal and coronal reformatted images were obtained. This CT examination was performed using dose optimization techniques as appropriate, variously including the following: *Automated exposure control *Adjustment of mA and/or kV according to patient size (this includes techniques or standardized protocols for targeted exams where dose is matched to indication/reason for exam; i.e. extremities or head) *Use of iterative reconstruction technique DLP: 228 mGy-cm FINDINGS: LUNGS: Redemonstration of a cystic lesion at the anterior medial right upper lobe adjacent to the midline with surrounding chain sutures. There is irregularity of the margins of this lung. There are scattered regional reticular nodular airspace opacities in the remainder of the right lung. These are associated with architectural distortion of the parenchyma in the right upper lobe. Severity similar to the CAT scan of July 01, 2024. Small vague groundglass opacity along the major fissure in the left upper lobe posteriorly. This is unchanged since prior CT July 01, 2024. Small subpleural groundglass opacity in the medial dependent left lower lobe. This measures about 5 mm. This is new since CAT scan July 01, 2024. Central bronchial airways are open. Emphysematous changes of lungs. MEDIASTINUM: There is a precarinal lymph node measuring 1 cm. Additional subcentimeter lymph nodes at the AP window. Lymph nodes are new since CAT scan July 01, 2024. These may be reactive. Heart size is normal. No pericardial effusion. Small volume of vascular calcifications of aorta and great vessels. CORONARY ARTERY CALCIFICATION: Heavy volume of coronary calcification. PLEURA: There is no pleural effusion. No pleural mass or thickening. AXILLA: No lymphadenopathy. UPPER ABDOMEN: Unremarkable. OSSEOUS STRUCTURES: Unremarkable. CT/CT chest wo IV con IMPRESSION: 1. Redemonstration of a cystic lesion in the right upper lobe with surrounding chain sutures. There are scattered regional reticular nodular airspace opacities in the remainder of the right lung. These are associated with architectural distortion of the parenchyma in the right upper lobe. Severity similar to the CAT scan of July 01, 2024. 2. Small vague groundglass opacity along the major fissure in the left upper lobe posteriorly. This is unchanged since prior CT July 01, 2024. 3. Small subpleural groundglass opacity in the medial dependent left lower lobe. This is new since CAT scan July 01, 2024. This measures about 5 mm. 4. Emphysematous changes of lungs. 5. New mediastinal lymph nodes since CAT scan July 01, 2024. These may be reactive. Fleischner guidelines were followed. Electronically signed by: De Green MD 09/16/2024 04:25 PM [facility] CORTEZ
--- NOTE | ~2024-09-16 | XR_ITS ---
EXAMINATION: XR CHEST CLINICAL INFORMATION: Shortness of breath. COMPARISON: June 18, 2024 x-ray chest, July 01, 2024 CT angiogram chest. TECHNIQUE: Frontal view of the chest was obtained. FINDINGS: Bilateral multifocal opacities, most notable in the [id number] right lung. Redemonstration of postsurgical changes on the right with perihilar sutures and volume loss. Heart size is normal. Dextroscoliosis of the thoracic spine with multilevel degenerative changes. No significant pleural effusion. There is no gross pneumothorax. XR/XR chest 1V IMPRESSION: Bilateral multifocal opacities, most notable in the [id number] right lung. This study was presented today to September 16, 2024 for interpretation. Stat results provided at this time as requested by referring provider. Electronically signed by: Elvia Arreola MD 09/16/2024 11:56 AM SARA
--- NOTE | 2024-09-16 09:28 | ED_ITS ---
HPI - General Adult General Chief complaint: Altered Mental Status Stated complaint: Sepsis Alert/ AMS history UTI/unresponsive per ems Time Seen by Provider: 09/16/24 09:23 Source: patient, family (patient's ) and EMS Mode of arrival: EMS Limitations: no limitations History of Present Illness ED Provider: Anisha Verdin PA-C HPI narrative: Patient is a 69 year old assigned female at with a history of renal cell carcinoma, depression, COPD on oxygen at baseline, GERD, and recent diagnosis of UTI presenting to the emergency department today with vomiting and altered mental status. Patient's states that the patient was diagnosed with a UTI yesterday and sent home with an antibitic however, she began vomiting and has not been able to keep the antibiotic down. Patient declines to answer any questions at this time stating that she is weak. Relieving factors: none Exacerbating factors: none Associated symptoms: nausea/vomiting Treatments prior to arrival: other (antibiotic for UTI) Related Data Home Medications ?Medication ?Instructions ?Recorded ?Confirmed Magic Mouthwash 10 ml PO QID PRN sores 07/01/24 09/16/24 Diphen/Lido/Antacid 1:1:1 240 mL suspension albuterol sulfate 90 mcg/actuation 2 puff inhalation DAILY PRN 07/01/24 09/16/24 aerosol inhaler shortness of breath or wheezing levothyroxine 25 mcg tablet 25 mcg PO DAILY@0600 07/01/24 09/16/24 (Synthroid) lidocaine HCl 2 % mucosal solution 1 appl mucous membrane QID PRN 07/01/24 09/16/24 (Lidocaine Viscous) mouth sores nitrofurantoin 1 cap PO BID 09/16/24 09/16/24 monohydrate/macrocrystals 100 mg capsule pantoprazole 40 mg tablet,delayed 40 mg PO DAILY@0630 09/16/24 09/16/24 release Previous Rx's ?Medication ?Instructions ?Recorded nifedipine 30 mg tablet,extended 30 mg PO DAILY #90 tabs 02/08/24 release lenvatinib 10 mg/day (10 mg x 1) 20 mg (2 x 10 mg/day (10 mg x 1)) 03/29/24 capsule (Lenvima) PO DAILY #60 caps atorvastatin 10 mg tablet 10 mg PO DAILY #90 tabs 04/03/24 gabapentin 400 mg capsule 400 mg PO TID #270 caps 04/23/24 amitriptyline 75 mg tablet 75 mg PO DAILY #90 tabs 05/01/24 apixaban 5 mg tablet (Eliquis) 5 mg PO BID #60 tabs 06/06/24 cholecalciferol (vitamin D3) 50 50 mcg PO DAILY 90 days #90 caps 06/30/24 mcg (2,000 unit) capsule clonazepam 0.5 mg tablet 0.5 mg PO TID PRN anxiety 30 days 08/06/24 #90 tabs bupropion HCl 150 mg 24 hr tablet, 150 mg PO QAM #90 tabs 08/11/24 extended release Allergies Allergy/AdvReac Type Severity Reaction Status Date / Time Sulfa (Sulfonamide Allergy Severe ANAPHYLAXIS Verified 09/16/24 09:28 Antibiotics) Penicillins Allergy Intermediate RASH Verified 09/16/24 09:28 aspirin [ASA] AdvReac Severe severe Verified 09/16/24 09:28 stomach pain NSAIDS (Non-Steroidal AdvReac Severe severe Verified 09/16/24 09:28 Anti-Inflamma stomach pain codeine [Codeine] AdvReac Intermediate NAUSEA & Verified 09/16/24 09:28 VOMITING Review of Systems 2 Review of Systems: Yes Other (patient declined to answer ROS) Gastrointestinal: Gastrointestinal: Reports nausea and Reports vomiting Neurologic: Reports other (altered mental status per the patient's ) [facility] Past Medical History Attestation statement: The following information was validated with the patient. (all information validated with the patient's ) Source: old records reviewed, obtained from family (patient's provided additional history and confirmed the history provided by the patient) and nursing notes reviewed Medical History Medication management Annual physical exam Weakness Dizziness Elevated C-reactive protein (CRP) Fever LANEY (obstructive sleep apnea) Cough Pleuritic chest pain COPD exacerbation Confusion Chest wall pain Bilateral knee pain Shoulder pain, left Left elbow pain Right foot pain COVID-19 Malignant neoplasm of left kidney Diminished libido Breast cancer screening by mammogram UTI (urinary tract infection) Colon cancer screening Easy bruising Chest pain Status post fall Supplemental oxygen dependent Lytic lesion of bone on x-ray Fluid in endometrial cavity Physical deconditioning Cancer cachexia Acquired hypothyroidism COPD (chronic obstructive pulmonary disease) Liver lesion Right lower lobe lung mass Post-operative nausea and vomiting Dry eye COVID-19 COPD (chronic obstructive pulmonary disease) Vitamin D deficiency Depression Primary osteoarthritis of knees, bilateral Pure hypercholesterolemia Palpitations Constipation Obstructive sleep apnea Anxiety Benign essential hypertension Oral thrush Lumbar degenerative disc disease Chronic allergic bronchitis GERD (gastroesophageal reflux disease) Surgical History Metastatic renal cell carcinoma to lung H/O kidney removal Hx of oral surgery Hx of tonsillectomy Pulmonary nodule 1 cm or greater in diameter History of nephrectomy Family History Family History Father Hypertension CVD (cardiovascular disease) Cancer Mother Hypertension Substance abuse Other Mental health problem Social History Social History Household Members: Spouse Household Members Other:: and brother and sister Housing: House Are you a primary child care lead teacher to a significant other at home: No Do you presently have visiting nurse or other home services: Yes Alcohol intake: never Comment: COUNTS CORRECT Patient Tobacco Use Status: Former Tobacco user Tobacco use type: Cigarette Cigarette Packs Per Day: 1.5 Years Smoked: 30 e-Cigarette/Vaping Use: Currently Using Second Hand Smoke Exposure: No Advance Directives: Yes Advance Directives on File: Yes Advance Directives Date on File: 11/29/23 Do you have a plan to hurt others: No Plan service: No Current occupational status: disabled Cognitive needs: No Hearing needs: No Vision needs: No Physical Exam ED Vital Signs: Vital Signs - 24 hr 09/16/24 09:26 09/16/24 11:16 09/16/24 12:24 Temperature 97.5 F Pulse Rate 119 H 110 H 104 H Respiratory Rate 20 20 17 Blood Pressure 120/78 103/58 L 103/65 Pulse Oximetry 95 96 98 Oxygen Delivery Method Nasal Cannula Nasal Cannula Nasal Cannula Oxygen Flow Rate 5 5 09/16/24 13:43 Temperature 102.3 F H Pulse Rate 107 H Respiratory Rate 18 Blood Pressure 109/69 Pulse Oximetry 96 Oxygen Delivery Method Nasal Cannula Oxygen Flow Rate 4 BMI result Body Mass Index 19.1 Const General: cooperative, no acute distress, awake and lethargic Nutritional Appearance: cachectic Orientation/consciousness: oriented to person, oriented to place and lethargic Limitations: other limitations (does not want to answer questions) HENMT Head: Yes normal to inspection and Yes atraumatic Ears: hearing grossly normal bilaterally and external ears normal General nose exam: Normal external nose present, no nasal discharge noted and no epistaxis Face and sinus: Yes normal facial exam, No abrasion and No laceration Mouth: Normal oral and palatal mucosa present, no drooling and no muffled voice Eyes General: appearance normal, both eyes and all related structures Periorbital: periorbital findings normal Eyelids: Yes eyelids normal Conjunctivae: conjunctivae normal Pupils: Equal, round and reactive pupils present EOM: EOMs intact bilaterally Neck Neck: Yes normal visual inspection, Yes full ROM and Yes no lymphadenopathy Chest Chest palpation & inspection: normal inspection of the chest Resp Effort & Inspection: normal respiratory effort and able to speak in complete sentences Cardio Rate: tachycardic Rhythm: regular rhythm GI Inspection: Yes normal to inspection Palpation (GI): Soft to palpation, not firm, nontender and no guarding Neuro General: oriented to person, oriented to place and moves all extremities Cranial nerves: Yes Equal, round and reactive pupils present Cognition (Neuro): normal cognition Extrem General: Yes normal to inspection, Yes full ROM and Yes capillary refill normal Psych Appearance: grossly normal Mental Status: mental status grossly normal Affect: normal affect Attitude: cooperative Thought process: Normal thought process present Thought content: Normal thought content present Insight: Good insight present (Psych) Medications Administered Generic Name Dose Route Start Last Admin Trade Name Freq PRN Reason Stop Dose Admin Acetaminophen 650 mg 09/16/24 14:24 09/16/24 14:54 Acetaminophen Supp 650 Mg Supp.Rect FL 650 mg Q6H PRN Administration Fever Dextrose 250 mls @ 750 mls/hr 09/16/24 10:32 09/16/24 11:38 D10 IV Infused Q15M PRN Infusion per Hypoglycemia Standing Ord. Dextrose/Sodium Chloride 1,000 mls @ 125 mls/hr 09/16/24 13:00 09/16/24 13:11 D5ns IVCONT 125 mls/hr .Q8H ENE Administration Vancomycin HCl 1,250 mg/ 250 mls @ 166.667 mls/hr 09/16/24 14:30 09/16/24 14:55 Sodium Chloride IV 09/16/24 15:59 166.67 mls/hr ONCE ONE Administration Discontinued Medications Generic Name Dose Route Start Last Admin Trade Name Freq PRN Reason Stop Dose Admin Ceftriaxone Sodium 1 gm 09/16/24 09:28 09/16/24 09:48 Ceftriaxone Sodium 1 Gm Vial IVPUSH 09/16/24 09:29 1 gm ONCE ONE Administration Sodium Chloride 1,000 mls @ 999 mls/hr 09/16/24 10:45 09/16/24 11:38 Ns IV 09/16/24 11:45 Infused .Q1H1M ENE Infusion Medical Decision Making Medical Decision Making [facility] Narrative: Patient is a 69 year old assigned female at with a history of renal cell carcinoma, depression, COPD on oxygen at baseline, GERD, and recent diagnosis of UTI presenting to the emergency department today with vomiting and altered mental status. Patient's physical exam was as noted in the physical exam portion of this note. Patient's blood work showed an elevated WBC count of 15.6, ESR of 29, CRP of 10.95, initial glucose 51, and initial lactic 2.9. Patient's urine showed no acute process. Patient's chest x-ray showed bilateral multifocal opactities. Patient was given D50, IV fluids, and IV ceftriaxone. Patient's glucose and lactic levels improved. I was concerned for sepsis at 1031. I spoke to the hospitalist team who agreed to admission. I explained my physical exam findings as well as all test results to the patient. I answered all questions asked by the patient. Patient and the patient's verbalized agreement and understanding with this treatment plan and admission. Differential Diagnosis Differential Diagnoses: The differential diagnosis associated with the presentation includes Pneumonia Sepsis Admission/Observation Consideration of admission/observation: Escalation of care including admission/observation considered Patient admitted as noted in the MDM Rationale portion of this note. Consult Healthcare Provider Management of the patient was discussed with: Hospitalist (agreed to admission.) Lab Data [facility] Lab Attestation statement: I reviewed the patient's lab results. My interpretation of these results are in the MDM Rationale portion of this note. 09/16/24 09:43 09/16/24 09:43 Labs: Lab Results 09/16/24 09/16/24 09/16/24 Range/Units 09:43 09:44 09:48 WBC 15.6 H (4.8-10.8) X10*3/uL RBC 4.65 (4.20-5.50) X10*6/uL Hgb 13.1 (12.0-16.0) g/dl Hct 39.4 (37.0-47.0) % MCV 84.7 (80.0-98.0) fL MCH 28.2 (27.0-33.0) pg MCHC 33.2 (31.0-35.0) g/dl RDW 14.0 (11.0-16.0) % Plt Count 286 (160-400) X10*3/uL MPV 9.2 L (9.4-12.3) fL Immature Gran % (Auto) 0.5 H (0.0-0.4) % Neut % (Auto) 89.9 H (45-73) % Lymph % (Auto) 1.9 L (20-40) % [facility] % (Auto) 6.7 (2-11) % Eos % (Auto) 0.4 (0-4) % Baso % (Auto) 0.6 (0-2) % Lymph # (Auto) 0.3 L (1.2-4.9) X10*3/uL [facility] # (Auto) 1.1 (0.1-1.2) X10*3/uL Eos # (Auto) 0.1 (0.0-0.4) X10*3/uL Baso # (Auto) 0.1 (0.0-0.2) X10*3/uL Abs Immat Gran (auto) 0.08 H (0.00-0.03) X10*3/uL Absolute Neuts (auto) 14.0 H (2.0-8.3) x10*3/uL Absolute Nucleated RBC 0.000 (0.0-0.012) X10*3/uL Nucleated RBC % (auto) 0.0 (0.0-0.2) /100WBC ESR 29 H (0-20) MM/HR VBG pH 7.27 L (7.32-7.43) VBG pCO2 62 mmHg VBG pO2 40 mmHg VBG HCO3 29 H (22-26) mmol/L VBG O2 Saturation 54.0 % VBG Base Excess 0.5 mmol/L Sodium 130 L (135-145) mmol/L Potassium 4.6 (3.3-5.1) mmol/L Chloride 92 L (96-108) mmol/L Carbon Dioxide 27 (22-29) mmol/L Anion Gap 16 (12-20) BUN 18 H (9-16) mg/dL Creatinine 1.30 (0.5-1.4) mg/dL Estim Creat Clear Calc 32.0 Estimated GFR 41 POC Glucose (60-115) mg/dL Random Glucose 51 L* (60-115) mg/dL Lactic Acid 2.9 H* (0.5-2.0) mmol/L Lactic Acid F/U @ 2Hr (0.5-2.0) mmol/L Calcium 8.5 D (8.4-10.2) mg/dL Total Bilirubin 0.7 (0.0-1.0) mg/dL AST 37 H (5-31) U/L ALT 12 (0-31) U/L Alkaline Phosphatase 99 (39-117) U/L C-Reactive Protein 10.95 H (< or = 0.50) mg/dL Total Protein 6.3 L (6.5-8.0) g/dL Albumin 3.1 L (3.5-5.0) g/dL Urine Color Urine Appearance Urine pH (5.0-9.0) Ur Specific [place] (1.005-1.025) Urine Protein (Neg-Trace) mg/dL Urine Glucose (UA) (Negative) mg/dL Urine Ketones (Negative) mg/dL Urine Blood (Negative) Urine Nitrite (Negative) Ur Leukocyte Esterase (Negative) Urine RBC (0-2) /HPF Urine WBC (0-5) /HPF Ur Squamous Epith Cells (0-2) /HPF Urine Bacteria (None Seen) Hyaline Casts (0-2) /LPF 09/16/24 09/16/24 09/16/24 Range/Units 11:41 11:53 12:21 WBC (4.8-10.8) X10*3/uL RBC (4.20-5.50) X10*6/uL Hgb (12.0-16.0) g/dl Hct (37.0-47.0) % MCV (80.0-98.0) fL MCH (27.0-33.0) pg MCHC (31.0-35.0) g/dl RDW (11.0-16.0) % Plt Count (160-400) X10*3/uL MPV (9.4-12.3) fL Immature Gran % (Auto) (0.0-0.4) % Neut % (Auto) (45-73) % Lymph % (Auto) (20-40) % [facility] % (Auto) (2-11) % Eos % (Auto) (0-4) % Baso % (Auto) (0-2) % Lymph # (Auto) (1.2-4.9) X10*3/uL [facility] # (Auto) (0.1-1.2) X10*3/uL Eos # (Auto) (0.0-0.4) X10*3/uL Baso # (Auto) (0.0-0.2) X10*3/uL Abs Immat Gran (auto) (0.00-0.03) X10*3/uL Absolute Neuts (auto) (2.0-8.3) x10*3/uL Absolute Nucleated RBC (0.0-0.012) X10*3/uL Nucleated RBC % (auto) (0.0-0.2) /100WBC ESR (0-20) MM/HR VBG pH (7.32-7.43) VBG pCO2 mmHg VBG pO2 mmHg VBG HCO3 (22-26) mmol/L VBG O2 Saturation % VBG Base Excess mmol/L Sodium (135-145) mmol/L Potassium (3.3-5.1) mmol/L Chloride (96-108) mmol/L Carbon Dioxide (22-29) mmol/L Anion Gap (12-20) BUN (9-16) mg/dL Creatinine (0.5-1.4) mg/dL Estim Creat Clear Calc Estimated GFR POC Glucose 121 H (60-115) mg/dL Random Glucose (60-115) mg/dL Lactic Acid (0.5-2.0) mmol/L Lactic Acid F/U @ 2Hr 2.7 H* (0.5-2.0) mmol/L Calcium (8.4-10.2) mg/dL Total Bilirubin (0.0-1.0) mg/dL AST (5-31) U/L ALT (0-31) U/L Alkaline Phosphatase (39-117) U/L C-Reactive Protein (< or = 0.50) mg/dL Total Protein (6.5-8.0) g/dL Albumin (3.5-5.0) g/dL Urine Color Dark Yellow Urine Appearance Clear Urine pH 5.5 (5.0-9.0) Ur Specific [place] 1.020 (1.005-1.025) Urine Protein 100 (2+) H (Neg-Trace) mg/dL Urine Glucose (UA) Negative (Negative) mg/dL Urine Ketones 15 (Negative) mg/dL Urine Blood Negative (Negative) Urine Nitrite Negative (Negative) Ur Leukocyte Esterase Negative (Negative) Urine RBC 0-2 (0-2) /HPF Urine WBC 0-5 (0-5) /HPF Ur Squamous Epith Cells 0-2 (0-2) /HPF Urine Bacteria None Seen (None Seen) Hyaline Casts 0-2 (0-2) /LPF 09/16/24 Range/Units 12:53 WBC (4.8-10.8) X10*3/uL RBC (4.20-5.50) X10*6/uL Hgb (12.0-16.0) g/dl Hct (37.0-47.0) % MCV (80.0-98.0) fL MCH (27.0-33.0) pg MCHC (31.0-35.0) g/dl RDW (11.0-16.0) % Plt Count (160-400) X10*3/uL MPV (9.4-12.3) fL Immature Gran % (Auto) (0.0-0.4) % Neut % (Auto) (45-73) % Lymph % (Auto) (20-40) % [facility] % (Auto) (2-11) % Eos % (Auto) (0-4) % Baso % (Auto) (0-2) % Lymph # (Auto) (1.2-4.9) X10*3/uL [facility] # (Auto) (0.1-1.2) X10*3/uL Eos # (Auto) (0.0-0.4) X10*3/uL Baso # (Auto) (0.0-0.2) X10*3/uL Abs Immat Gran (auto) (0.00-0.03) X10*3/uL Absolute Neuts (auto) (2.0-8.3) x10*3/uL Absolute Nucleated RBC (0.0-0.012) X10*3/uL Nucleated RBC % (auto) (0.0-0.2) /100WBC ESR (0-20) MM/HR VBG pH (7.32-7.43) VBG pCO2 mmHg VBG pO2 mmHg VBG HCO3 (22-26) mmol/L VBG O2 Saturation % VBG Base Excess mmol/L Sodium (135-145) mmol/L Potassium (3.3-5.1) mmol/L Chloride (96-108) mmol/L Carbon Dioxide (22-29) mmol/L Anion Gap (12-20) BUN (9-16) mg/dL Creatinine (0.5-1.4) mg/dL Estim Creat Clear Calc Estimated GFR POC Glucose 78 (60-115) mg/dL Random Glucose (60-115) mg/dL Lactic Acid (0.5-2.0) mmol/L Lactic Acid F/U @ 2Hr (0.5-2.0) mmol/L Calcium (8.4-10.2) mg/dL Total Bilirubin (0.0-1.0) mg/dL AST (5-31) U/L ALT (0-31) U/L Alkaline Phosphatase (39-117) U/L C-Reactive Protein (< or = 0.50) mg/dL Total Protein (6.5-8.0) g/dL Albumin (3.5-5.0) g/dL Urine Color Urine Appearance Urine pH (5.0-9.0) Ur Specific [place] (1.005-1.025) Urine Protein (Neg-Trace) mg/dL Urine Glucose (UA) (Negative) mg/dL Urine Ketones (Negative) mg/dL Urine Blood (Negative) Urine Nitrite (Negative) Ur Leukocyte Esterase (Negative) Urine RBC (0-2) /HPF Urine WBC (0-5) /HPF Ur Squamous Epith Cells (0-2) /HPF Urine Bacteria (None Seen) Hyaline Casts (0-2) /LPF Independent Interpretation I performed an independent interpretation of an: Plain X-Ray Interpretation: My interpretation is in agreement with the radiologist's impression of this imaging study. L EXAMINATION: XR CHEST CLINICAL INFORMATION: Shortness of breath. COMPARISON: June 18, 2024 x-ray chest, July 01, 2024 CT angiogram chest. TECHNIQUE: Frontal view of the chest was obtained. FINDINGS: Bilateral multifocal opacities, most notable in the [id number] right lung. Redemonstration of postsurgical changes on the right with perihilar sutures and volume loss. Heart size is normal. Dextroscoliosis of the thoracic spine with multilevel degenerative changes. No significant pleural effusion. There is no gross pneumothorax. XR/XR chest 1V IMPRESSION: Bilateral multifocal opacities, most notable in the [id number] right lung. This study was presented today to September 16, 2024 for interpretation. Stat results provided at this time as requested by referring provider. Electronically signed by: Elvia Arreola MD 09/16/2024 11:56 AM EST Dictated By: Elvia Arreola MD Signed By: Electronically signed by Elvia Arreola MD 09/16/24 1156 Radiology Impression Discussion of test interpretation with radiology: I have reviewed the radiologist's reading. Independent Historian Clinical information obtained from an independent historian. History obtained from or confirmed by: Spouse (patient's husban provided additional history and confirmed the history provided by the patient.) and EMS (EMS provided additional history and confirmed the history provided by the patient.) Critical Care Time Critical Care Time Critical Care Time: Yes Total Critical Care Time: 47 Attestation: I spent 47 minutes of Critical Care Time with this patient. This does not include time spent on separately reported billable procedures. Discharge Plan Discharge Clinical Impression: Pneumonia, Sepsis Patient Disposition: Admitted As Inpatient
[2024-09-16] MEDS: cefTRIAXone sodium 1 GM VIAL IVPUSH (09:48)
[2024-09-16 09:49] LABS: MANUAL DIFF FLAG NO
[2024-09-16 09:52] LABS: Venous Blood Gas Refer to POC result
[2024-09-16 09:53] LABS: VBG Base Excess 0.5 mmol/L; VBG HCO3 29 mmol/L (22-26); VBG pCO2 62 mmHg; VBG pH 7.27 (7.32-7.43); VBG pO2 40 mmHg
[2024-09-16 09:56] LABS: Basophils Absolute Auto 0.1 X10*3/uL (0.0-0.2); Basophils Percent Auto 0.6 % (0-2); Eosinophils Absolute Auto 0.1 X10*3/uL (0.0-0.4); Eosinophils Percent Auto 0.4 % (0-4); Hematocrit 39.4 % (37.0-47.0); Hemoglobin 13.1 g/dl (12.0-16.0); Imm Gran Abs Auto 0.08 X10*3/uL (0.00-0.03); Imm Gran Pct Auto 0.5 % (0.0-0.4); Lymphocytes Absolute Auto 0.3 X10*3/uL (1.2-4.9); Lymphocytes Percent Auto 1.9 % (20-40); Mean Corpuscular HGB Conc 33.2 g/dl (31.0-35.0); Mean Corpuscular Hemoglobin 28.2 pg (27.0-33.0); Mean Corpuscular Volume 84.7 fL (80.0-98.0); Mean Platelet Volume 9.2 fL (9.4-12.3); Monocytes Absolute Auto 1.1 X10*3/uL (0.1-1.2); Monocytes Percent Auto 6.7 % (2-11); Neutrophils Percent Auto 89.9 % (45-73); Platelet Count 286 X10*3/uL (160-400); Red Blood Count 4.65 X10*6/uL (4.20-5.50); White Blood Count 15.6 X10*3/uL (4.8-10.8)
--- OUTSIDE RECORDS SUMMARY | 2024-09-16 10:10 | XMS_ITS | Data Portability ---
Author Organization [employer] [place] in - [facility] Address [address] [place] [address] Care Team Providers Care Refrigeration Operator Name Role Phone HIM CCA OTHER [facility] Primary Care Provider Assessment Encounter Date Assessment Date Assessment LastModified by Organization Details LastModified Time 02/07/2024 02/07/2024 As noted, we were called to see this patient regarding concerns of cough, lethargy 68 yo F h/o COPD, renal CA with mets to lungs, GERD, HLD, htn, p/w non-productive cough, chest congestion, body aches, lethargy x 4d. is sick with URI as well. She is on 2.5L NC at home prn. Unknown what her baseline Pox is. No report of fevers. Has had recurrent falls at home. concerned because she seems a bit sleepier today. She doesn't eat much at baseline. She is taking liquids. No urinary sxs. No n/v. Does not use any device for walking. No h/o VTE Evaluation in the field was performed by my car knocker colleague, as noted above, I provided real-time direction and supervision for this visit. The evaluation revealed patient to be unsteady on her feet, sats 83-85% on RA upon answering door, slightly somnolent (but states this is chronic) and the sats increased to mid 90s on 2.5L. Not tachypneic. Appears lethargic. MMM. Lungs clear. RRR. Abd soft, nd, nt. No leg edema. Mild calf tenderness Impression: ___ #COPD #cough #hypoxia DDx includes COPD exacerbation in setting of viral URI, also includes PNA, PE, lower clinical suspicion for ACS EKG reviewed--no priors, NSR, no acute STEs or T wave changes covid and flu poc neg iSTAT results reviewed--K 5.4; elevated bicarbonate Plan: ___ Duonebs x 2 Repeat lung exam remains unchanged. Patient's sats are in the 70s on RA. Will escalate patient to [place] ED via 911 for additional work up and treatment of hypoxia and increased confusion (?hypercarbia). Expect called in to [place] ED RN Disposition: We discussed the situation and I recommended referral to the emergency department. This was based on patient's low oxygen levels and appearing more fatigued/lethar gic than usual [email or web address] Not available 02/07/2024 17:09:40 09/15/2024 09/15/2024 I have reviewed and agree with the assessment and plan as documented by the car knocker. I provided real time medical direction for this encounter and was immediately available to provide additional phone based assistance as needed. History as noted by car knocker. Pt with history of RCC currently receiving chemo, and recurrent UTIs. Pt reports 1 days of symptoms consistent with prior UTIs including brain fog , and dark, foul smelling, cloudy urine. Pt denies any flank pain, vomiting, dysuria, fevers or chills. Pt does note difficulty urinating which is also typical of prior UTIs. On exam, pt appears well, no distress. Vitals ok, afebrile. Mild suprapubic tenderness noted. Urine dip: + leukocytes, negative blood and nitrite Impression: Pt with 1 days of her typical UTI symptoms with brain fog and dark, cloudy, foul smelling urine. Pt appears well with normal vitals and is afebrile. No flank pain. Urine dip is c/w UTI. Urine Cx will be sent to [facility]. Pt reports that her UTIs have been successfully treated with macrobid in the past. Pt is medicated by medic with Macrobid 100mg po now and I prescribe Macrobid 100mg bid x7 days. Pt instructed to call and f/u with her primary care team in 2-3 days to let ensure her symptoms are improving and to have them check the results of todays UCx. Pt instructed to seek medical attention right away with any worsening or new symptoms, which are reviewed with her. [email or web address] Not available 09/15/2024 13:20:55 Plan of Treatment Reminders Order Date Submit Date Provider Last Modified By Organization Details Last Modified Time Details Appointments None recorded. Lab BMP, serum or plasma 2023 024 TY[facility]E [facility], [address] [place] [address], [id number], 4 20:10:07 hemoglobin + hematocrit, blood 2023 024 TYRESE [facility], [address] [place] [address], [id number], 4 20:10:46 rapid SARS CoV 2 Ag, QL IA, respiratory specimen 2023 024 [email or web address] [facility], [address] [place] [address], [id number], 4 17:02:14 rapid flu (A+B) 2023 024 [email or web address] [facility] - [facility], [address] [place] [address], [id number], 4 17:02:11 culture, urine 2023 [place] [facility], [address] [place] [address], [place], [address], 4 13:09:42 urinalysis, dipstick 2023 btils [facility], [address] [place] [address], [id number], 4 13:09:33 Referral None recorded. Procedures None recorded. Surgeries None recorded. Imaging electrocard iogram 2023 024 TYRESE [facility], [address] [place] [address], [id number], 4 05:01:36 Medication Orders ipratropium 0.5 mg-albutero l 3 mg (2.5 mg base)/3 mL nebulizatio n soln 2023 024 [email or web address] Not available 17:02:09 Macrobid 100 mg capsule 2023 024 btils [id number], [address] [place], [address], 4 13:12:31 Macrobid 100 mg capsule 2023 024 TY[id number], [address] [place], [address], 4 13:12:33 Patient TargetsNo targets recorded. Patient InstructionsNo instructions recorded. Reason for Referral None Reported. Results Created Date Observation Date Name Description Value Unit Range Abnormal Flag Note LastModifiedBy Organization Detail LastModifiedTime 02/07/20 24 02/07/2024 rapid flu (A+B) Flu negati ve Not Available Main - [facility] ed [address] [place] [address], [id number], 02/07/2024 16:14:04 02/07/20 24 02/07/2024 rapid SARS CoV 2 Ag, QL IA, respi rator y speci men rapid SARS CoV 2 Ag, QL IA, respiratory specimen negati ve Not Available [facility] [address] [place] [address], [id number], 02/07/2024 16:14:02 09/15/20 24 09/16/2024 URINA LYSIS , ROUTI NE specific gravity TNP Test not perfo rmed. Mao top urine tube is for urine cultu re and is not suita ble for urina lysis . Not Available [facility] ([facility]) [address] [facility], [place], [address], 09/16/2024 08:05:41 09/15/20 24 09/16/2024 URINA LYSIS , ROUTI NE pH TNP Test not perfo rmed Not Available [facility] ([facility]) [address] [facility], [place], [address], 09/16/2024 08:05:41 09/15/20 24 09/16/2024 URINA LYSIS , ROUTI NE urine-color LEAD SYSTEMS ENGINEER Not Available [facility] ([facility]) [address] [facility], [place], [address], 09/16/2024 08:05:41 09/15/20 24 09/16/2024 URINA LYSIS , ROUTI NE appearance LEAD SYSTEMS ENGINEER Not Available [facility] ([facility]) [address] [facility], [place], [address], 09/16/2024 08:05:41 09/15/20 24 09/16/2024 URINA LYSIS , ROUTI NE WBC esterase LEAD SYSTEMS ENGINEER Not Available [facility] ([facility]) [address] [facility], [place], [address], 09/16/2024 08:05:41 09/15/2009/16/2024 URINA LYSIS , ROUTI NE protein TNP Test not perfo rmed Not Available [facility] ([facility]) [address] [facility], [place], [address], 09/16/2024 08:05:41 09/15/20 24 09/16/2024 URINA LYSIS , ROUTI NE glucose TNP Test not perfo rmed Not Available [facility] ([facility]) [address] [facility], [place], [address], 09/16/2024 08:05:41 09/15/20 24 09/16/2024 URINA LYSIS , ROUTI NE ketones TNP Test not perfo rmed Not Available [facility] ([facility]) [address] [place], [address], 09/16/2024 08:05:41 09/15/20 24 09/16/2024 URINA LYSIS , ROUTI NE occult blood LEAD SYSTEMS ENGINEER Not Available [facility] ([facility]) [address] [place], [address], 09/16/2024 08:05:41 09/15/20 24 09/16/2024 URINA LYSIS , ROUTI NE bilirubin LEAD SYSTEMS ENGINEER Not Available [facility] ([facility]) [address] [facility], [place], [address], 09/16/2024 08:05:41 09/15/20 24 09/16/2024 URINA LYSIS , ROUTI NE urobilinogen ,semi-qn LEAD SYSTEMS ENGINEER Not Available [facility] ([facility]) [address] [facility], [place], [address], 09/16/2024 08:05:41 09/15/20 24 09/16/2024 URINA LYSIS , ROUTI NE nitrite, urine LEAD SYSTEMS ENGINEER Not Available [facility] ([facility]) [address] [facility], [place], [address], 09/16/2024 08:05:41 09/15/20 24 09/16/2024 URINA LYSIS , ROUTI NE microscopic examination LEAD SYSTEMS ENGINEER Not Available [facility] ([facility]) [address] [facility], [place], [address], 09/16/2024 08:05:41 02/07/20 24 02/07/2024 elect valentín ojeda am No observ ation record ed. [address], [phone], 02/07/2024 20:09:34 Result Notes None recorded. Procedures Surgical History None recorded. Imaging Results Imaging Date Name Status LastModified by Organization Details LastModified Time 02/07/2024 electrocardiogram completed [address], [phone], 02/07/2024 20:09:34 Procedure Notes None recorded. Medical Equipment None Reported. Allergies Allergen ID Allergen Name Allergen Category Reaction Reaction Severity Criticality Documentation Date Start Date Code Code System Note Provider Name and Address Organization Details Recorded Time 7042 aspirin medicatio n Not available Not available Not available 07/30/2024 1191 RxNorm Not Available [facility] - production 03:34:33 7043 Medicinal product containin g penicilli n and acting as antibacte rial agent (product) medicatio n Not available Not available Not available 07/30/2024 42142 05 SNOMED Not Available [facility] - production 4 03:34:33 Medications Name Sig Start Date Stop Date Status Note LastModified by Organization Details LastModified Time nystatin 100,000 unit/mL oral suspension active Not Available Not Available N ot Available ipratropium 0.5 mg-albuterol 3 mg (2.5 mg base)/3 mL nebulization soln Inhale 3 mL by nebulizatio n route. 2023 active Not Available Not Available Not Avai lable atorvastatin 10 mg tablet TAKE 1 TABLET BY MOUTH DAILY active Not Available Not Available Not Available azithromycin 250 mg tablet TAKE 2 TABLETS BY MOUTH TODAY, THEN TAKE 1 TABLET DAILY FOR 4 DAYS active Not Available Not Available No t Available Lidocaine Viscous 2 % mucosal solution APPLY TO AFFECTED MUCOSAL AREA 4 TIMES A DAY active Not Available Not Available Not Available amitriptylin e 75 mg tablet TAKE 1 TABLET BY MOUTH EVERY DAY active Not Available Not Available No t Available senna 8.6 mg tablet TAKE 1 TABLET BY MOUTH TWICE A DAY NEEDED FOR CONSTIPATIO N active Not Available Not Available No t Available famotidine 40 mg tablet TAKE 1 TABLET BY MOUTH EVERY DAY active Not Available Not Available No t Available prednisone 20 mg tablet TAKE 1 TABLET BY MOUTH EVERY DAY FOR 5 DAYS active Not Available Not Available No t Available clonazepam 0.5 mg tablet TAKE 1 TABLET BY MOUTH 3 TIMES A DAY NEEDED FOR ANXIETY FOR 30 DAYS active Not Available Not Available Not Available gabapentin 400 mg capsule TAKE 1 CAPSULE BY MOUTH 3 TIMES A DAY active Not Available Not Available Not Available nifedipine ER 30 mg tablet,exten ded release TAKE 1 TABLET BY MOUTH DAILY active Not Available Not Available Not Available ciprofloxaci n 500 mg tablet TAKE 1 TABLET BY MOUTH TWICE A DAY FOR 7 DAYS active Not Available Not Available No t Available ondansetron 8 mg disintegrati ng tablet DISSOLVE 1 TABLET SUBLINGUALL Y EVERY 8 HOURS active Not Available Not Available No t Available levothyroxin e 25 mcg tablet TAKE 1 TABLET BY MOUTH EVERY DAY active Not Available Not Available No t Available Macrobid 100 mg capsule Take 1 capsule every 12 hours by oral route for 7 days. 2023 active Not Available Not Available Not Avai lable oxycodone-ac etaminophen 5 mg-325 mg tablet TAKE 1 TABLET BY MOUTH EVERY 8 HOURS NEEDED FOR LOW BACK PAIN FOR 7 DAYS active Not Available Not Available No t Available triamcinolon e acetonide 0.1 % dental paste 1 APPL TO DENTAL AREA 2 TIMES A DAY USE AFTER FOOD AND/OR DRINK AND/OR ORAL HYGIENE active Not Available Not Available No t Available benzonatate 100 mg capsule TAKE 1 CAPSULE BY MOUTH THREE TIMES A DAY NEEDED FOR COUGH active Not Available Not Available No t Available doxycycline monohydrate 100 mg capsule TAKE 1 CAPSULE BY MOUTH TWICE A DAY active Not Available Not Available No t Available pantoprazole 40 mg tablet,delay ed release TAKE 1 TABLET BY MOUTH EVERY DAY active Not Available Not Available No t Available prednisone 50 mg tablet TAKE 1 TABLET BY MOUTH EVERY DAY FOR 5 DAYS active Not Available Not Available No t Available hydrochlorot hiazide 25 mg tablet TAKE 1 TABLET BY MOUTH EVERY DAY active Not Available Not Available No t Available levofloxacin 500 mg tablet TAKE 1 TABLET BY MOUTH DAILY FOR 7 DAYS active Not Available Not Available N ot Available levofloxacin 750 mg tablet TAKE 1 TABLET BY MOUTH EVERY DAY active Not Available Not Available No t Available albuterol sulfate HFA 90 mcg/actuatio n aerosol inhaler 2 PUFF INHALED 4 TIMES A DAY NEEDED FOR SHORTNESS OF BREATH OR WHEEZING active Not Available Not Available Not Available cefdinir 300 mg capsule TAKE 1 CAPSULE BY MOUTH TWICE A DAY FOR 5 DAYS active Not Available Not Available No t Available mometasone 0.1 % topical cream APPLY TO AFFECTED AREAS TOPICAL 2 TIMES A DAY NEEDED FOR RASH active Not Available Not Available No t Available bupropion HCl XL 150 mg 24 hr tablet, extended release TAKE 1 TABLET ORALLY EVERY MORNING FOR 90 DAYS active Not Available Not Available No t Available Flovent HFA 220 mcg/actuatio n aerosol inhaler INHALE 2 PUFF BY MOUTH 2 TIMES A DAY active Not Available Not Available Not Available dexlansopraz ole 60 mg capsule,biph ase delayed release TAKE 1 CAPSULE BY MOUTH DAILY FOR FOR ACID REFLUX FOR 30 DAYS active Not Available Not Available Not Available Vitamin D3 50 mcg (2,000 unit) capsule TAKE 1 CAPSULE BY MOUTH EVERY DAY active Not Available Not Available No t Available Incruse Ellipta 62.5 mcg/actuatio n powder for inhalation INHALE 1 PUFF DAILY active Not Available Not Available N ot Available Lenvima 20 mg/day (10 mg x 2) capsule active Not Available Not Available Not Available Paxlovid 300 mg (150 mg x 2)-100 mg tablets in a dose pack TAKE 2 TABLETS (NIRMATRELV IR) AND TAKE 1 TABLET (RITONAVIR) BY MOUTH TWICE A DAY FOR 5 DAYS active Not Available Not Available N ot Available Vitals Date Recorded Body temperature Heart rate Body weight Oxygen saturation Oxygen saturation in Arterial blood by Pulse oximetry Body height Respiratory rate Systolic blood pressure Diastolic blood pressure Provider Name and Address Organization Details Last Updated DateTime 4 97.4 [degF] 104 /min 96322.2 g 85 % 85 % 160.02 cm 18 /min 127 mm[Hg] 81 mm[Hg] Not Available [facility] 4 16:00:52 Date Recorded Body temperature Respiratory rate Oxygen saturation Oxygen saturation in Arterial blood by Pulse oximetry Body weight Body height Heart rate Systolic blood pressure Diastolic blood pressure Provider Name and Address Organization Details Last Updated DateTime 4 98.2 [degF] 14 /min 97 % 97 % 71991.1 2 g 160.02 cm 98 /min 136 mm[Hg] 82 mm[Hg] Not Available [facility] 4 13:07:11 Social History None recorded. Functional Status None recorded. Mental Status None recorded. Family History Nothing Reported. Medical History No medical history recorded. Gynecological HistoryNo gynecological history recorded. Obstetrics History GPAL:G 0 P 0 0 0 0 Past Encounters Encounter ID Performer Location Encounter Start Date Encounter Closed Date Diagnosis/Indication Diagnosis SNOMED-CT Code Diagnosis ICD10 Code [id number] PHILIP ELIAS MD [facility] [address] [place] [phone] 02/07/2024 16:00:50 02/07/2024 21:26:44 Cough 70130392 R05.9 Hypoxia 503493925 R09.02 Lethargy 201802116 R53.8 3 [id number] Romeo Young MD [facility] [address] [place] [phone] 09/15/2024 13:07:09 09/15/2024 14:14:15 Urinary symptoms 736848678 R39.9 Health Concerns Section Related Observation LastModified by Organization Detai ls LastModified Time None Recorded Concern Status LastModified by Organization Details LastModified Time None Recorded Advance Directives Directive None Recorded Payers Encounter Date Sequence Insurance Name Policy Number Policy Springer Covered Member ID Springer Member ID Guarantor Name 02/07/2024 1 [facility] - DOS ON OR AFTER 2022 - DUAL ELIGIBLE - GROUP HOME OPTIONS AND ONE CARE (MEDICARE REPLACEMENT/ADV ANTAGE - HMO) Elina Stewart [id number] Elina Stewart 09/15/2024 1 [facility] - DOS ON OR AFTER 2022 - DUAL ELIGIBLE - GROUP HOME OPTIONS AND ONE CARE (MEDICARE REPLACEMENT/ADV ANTAGE - HMO) Elina Stewart [id number] Elina Stewart Notes Date Note Type Note Provider Name and Address Organization Details Recorded Time 02/07/2024 text/html [facility] Nurse Triage Notes (Jessica Boo): Reason For Request: Pt's experiencing heaviness in chest>dry cough>going on 2 days Chief Complaints: Cough, Weakness/Lethargy, Chest Pain PMH: COPD/Asthma, Cancer Allergies: Aspirin, Penicillin Comments: Member reporting heaviness in chest. New non-productive cough, chest congestion. c/o body aches. Breathing is even, unlabored. On 02 @ 2lpm. 02 Sat 99% HR 98. No known fevers. Able to speak full sentences without difficulty. A&Ox3. History of Lung CA. Advised to call 911 for worsening signs/symptoms. .................... .................... .................... .................... .................... .................... .................... . Evening Anchor Note From Wilfredo Hall: [facility] visit for female patient with multiple symptoms. Pt answered the door upon arrival. Pt was unsteady on her feet while ambulating. Had her sit on the couch in living room. Pt reports a few days of feeling weak and lethargic. Dry unproductive cough reported. Pt has history of kidney cancer with some metastasis to lungs. V/S taken with room air SPO2 in the mid 80's. Pt has an oxygen concentrator that she wasn't using, that she says she only uses as needed. Pt denies shortness of breath at this time. Lung sounds clear. Pt noted to be somnolent on exam. No edema noted. present as well who reports some falls in the past couple of weeks that patient has not been evaluated. Pt afebrile. Flu and COVID rapid swabs both negative. Consulted with [facility] Dr. Elias who ordered EKG, and basic metabolic panel and duoneb treatment. EKG completed and uploaded with no concerns. Duoneb treatment completed. Blood drawn with BMP uploaded to [facility]. So slight concerns with BMP results, but of more concern were continued poor room air sats, and unsteadiness on feet. Dr. Elias advised pt go to ED and she agreed. 911 called with [facility] arriving. Report given to transporting medic Adryan Crystal. Care transferred to [facility]. [facility] Lab Orders: BMP, serum or plasma: Performed .................... .................... .................... .................... .................... .................... .................... . Disposition: Fulfilled PHILIP ELIAS MD [address] [facility],[address], [place], [phone], [employer] 02/07/2024 18:46:33 09/15/2024 text/html This was a supervised home visit with car knocker Pool Lee. [facility] Nurse Triage Notes (Deep Berg - RN): Reason For Request: Pt reporting the member has cancer and is on chemo treatment but notes when she gets a UTI she gets immense brain fog>urine is dark and cloudy with a slight odor>suspected UTI, 6th one this year. Patient Reports: Unable to void greater than 5 hoursDenies: Erection that will not go away after 2 hours Fall or trauma that results in urinary incontinence in the setting of pain Fall or injury that results in incontinence in the absence of pain Lower back pain either unilateral or bilateral, unable to void, painful urination -hematuria Chief Complaints: Urinary symptoms, Altered mental statusPMH: COPD/Asthma, Cancer, HypertensionComments : Occupational Therapy Aides Teacher verified the patient's name//address and phone number. Pt's daughter calling reporting concern that pt may have another UTI, states pt has had at least 6 UTIs this year. Daughter reports pt last treated for a UTI approx 1 month ago. Pt currently undergoing treatment with chemo for renal cell carcinoma. Pt's daughter reports pt with altered mental status, poor PO intake, memory problems, dark, cloudy urine on going for the few days. Daughter reports pt able to void last night, but states has not been able to void yet this morning despite trying. Education provided on the response time and the patient was advised to monitor reported s/s and seek emergency treatment if needed -Dinesh Berg RN Evening Anchor Organization Information for Rosa Mateusjocelyn Palomino Legal Name: [employer] ? Address: [address] [place] [address], [facility] Director: Driss Obrein [facility] No.: [id number] Evening Anchor POC Test Results from Pool Lee OSITO Urine Dipstick (13:03:43)Urine leukocytes: 70+ LEUUrine nitrites: - NITUrine urobilinogen: 2-3.5 UROUrine protein: 100++ PROUrine pH: 6.0 pHUrine blood: - BLOUrine specific gravity: 1.020 SGUrine ketones: 40++4.0 KETUrine bilirubin: 1+17 BILUrine glucose: - GLU .................... .................... .................... .................... .................... .................... .................... . Evening Anchor Note From Pool Lee: [facility] makes pt contact after being admitted to the home by pt's . He endorses typical UTI symptoms for the pt starting yesterday. He says she has had 7 UTIs in the same number of months and she is presenting as she usually does when she has an infection. He describes his observations as brain fog , dark yellow and cloudy urine that is malodorous, and increased fatigue w/ decreased urinary output. He reports her last void of the bladder as the previous evening and it being not much in volume. Pt is found laying supine on the sofa in the living room of the home. She is covered w/ a blanket and resting w/ her eyes closed. She opens her eyes, turns her head, and greets REE. She is unable to tell [facility] the day, month, year, or season and she is not sure why [facility] is present. She does know where she is and who is in her home w/ her at this time. Pt endorses difficulty w/ urination and suprapubic pressure . She is denying cp, sob, n/v/d, fever/chills, wilson, sore throat, and cough at this time. No sick contacts are reported. Pt is currently undergoing chemo for renal cancer. She consents to evaluation and tx today.[facility] obtains vitals signs and assesses pt. Nothing remarkable noted upon exam other than mild discomfort described as pressure when palpating lower abdomen. Pt is able to provide a clean catch of urine. [facility] obtains urine for culture and performs a urine dipstick test and uploads results. [facility] contacts [facility] and discusses the above findings. [facility] encourages pt to follow up w/ her doctor to go over the results of the culture in a few days. [facility] orders [facility] to administer 1 tablet of nitrofurantoin PO for the pt and calls in a prescription to pt's preferred pharmacy. Pt and thank [facility] for coming.[facility] is clear. Report completed by YURY Lee [id number]. [facility] Lab Orders: culture, urine: Performed .................... .................... .................... .................... .................... .................... .................... . [facility] Consulted: Romeo Young .................... .................... .................... .................... .................... .................... .................... . Disposition: Fulfilled Romeo Young MD [address] [facility],[address] [facility], [place], [address], [employer] [facility] 09/15/2024 14:14:11 OBGyn Episode No OBEpisode recorded.
--- OUTSIDE RECORDS SUMMARY | 2024-09-16 10:10 | XMS_ITS | Continuity of Care Document ---
Author Organization [email or web address] Address [address] [place] [address] Care Team Providers Care Director Supply Chain Name Role Phone HIM CCA OTHER [facility] Primary Care Provider [phone] Assessment Encounter Date Assessment Date Assessment LastModified by Organization Details LastModified Time 09/15/2024 09/15/2024 I have reviewed and agree with the assessment and plan as documented by the criminal justice faculty. I provided real time medical direction for this encounter and was immediately available to provide additional phone based assistance as needed. History as noted by criminal justice faculty. Pt with history of RCC currently receiving [...] Modified Time Details Appointments None recorded. Lab culture, urine 2023 [facility], [address], [place], [address], 13:09:42 urinalysis , dipstick 2023 [facility], [address] [place] [address], [phone], 13:09:33 Referral None recorded. Procedures None recorded. Surgeries None recorded. Imaging None recorded. Medication Orders Macrobid 100 mg capsule 2023 [id number], [address] [place], [address], 13:12:31 Macrobid 100 mg capsule 2023 024 [facility] #[id number], [address] [place], [address], 13:12:33 Patient TargetsNo targets recorded. Patient InstructionsNo instructions recorded. Reason for Referral None Reported. Results Created Date Observation Date Name Description Value Unit Range Abnormal Flag Note LastModifiedBy Organization Detail LastModifiedTime Result Notes None recorded. Medical Equipment None Reported. [...] Not available Not available Not available 07/30/2024 00531 05 SNOMED Not Available [facility] - production 03:34:33 Medications Name Sig Start Date Stop [...] ot Available Vitals Date Recorded Body temperature Respiratory rate Oxygen saturation Oxygen saturation in Arterial blood by Pulse oximetry Body weight Body height Heart rate Systolic blood pressure Diastolic blood pressure Provider Name and Address Organization Details Last Updated DateTime 4 98.2 [degF] 14 /min 97 % 97 % 47700.1 2 g 160.02 cm 98 /min 136 mm[Hg] 82 mm[Hg] Not Available [facility] - production 4 13:07:11 Social History None recorded. Functional Status None recorded. Mental Status None recorded. Family History Nothing Reported. Medical History No medical history recorded. Gynecological HistoryNo gynecological history recorded. Obstetrics History GPAL:G 0 P 0 0 0 0 Past Encounters Encounter ID Performer Location Encounter Start Date Encounter Closed Date Diagnosis/Indication Diagnosis SNOMED-CT Code Diagnosis ICD10 Code [id number] Romeo Young MD [facility] - [facility] [address] [place] [phone] 09/15/2024 13:07:09 09/15/2024 14:14:15 Urinary symptoms 259205933 R39.9 Health Concerns Section Related Observation LastModified by Organization Detai ls LastModified Time None Recorded Concern Status LastModified by Organization Details LastModified Time None Recorded Payers Encounter Date Sequence Insurance Name Policy Number Policy Springer Covered Member ID Springer Member ID Guarantor Name 09/15/2024 1 [facility] - DOS ON OR AFTER 2022 - DUAL ELIGIBLE - LONG TERM OPTIONS AND ONE CARE (MEDICARE REPLACEMENT/ADV ANTAGE - HMO) Elina Stewart [id number] Elina Stewart Notes Date Note Type Note Provider Name and Address Organization Details Recorded Time 09/15/2024 text/html This was a supervised home visit with criminal justice faculty [place]. CRC Nurse Triage Notes (Deep Berg - RN): [...] Altered mental statusPMH: COPD/Asthma, Cancer, HypertensionComments : [employer] verified the patient's name//address and phone number. [...] emergency treatment if needed -Dinesh Berg RN City Secretary Organization Information for Pool Lee Legal Name: [employer]? ? Address: [address] [place] [id number], Medical Director: Driss Obrien [facility] No.: [id number] City Secretary POC Test Results from [place] Urine Dipstick (13:03:43)Urine leukocytes: 70+ LEUUrine nitrites: - NITUrine urobilinogen: 2-3.5 UROUrine protein: 100++ PROUrine pH: 6.0 pHUrine blood: - BLOUrine specific gravity: 1.020 SGUrine ketones: 40++4.0 KETUrine bilirubin: 1+17 BILUrine glucose: - GLU .................... .................... .................... .................... .................... .................... .................... . City Secretary Note From Pool Lee: [facility] makes pt contact after being admitted to [...] her eyes, turns her head, and greets MIH. She is unable to tell MI the day, month, year, or season and she is not sure why MIH is present. She does know where she is and who is in her home w/ her at this time. Pt endorses difficulty w/ urination and suprapubic pressure . She is denying cp, sob, n/v/d, fever/chills, wilson, sore throat, and cough at this time. No sick contacts are reported. Pt is currently undergoing chemo for renal cancer. She consents to evaluation and tx today.[facility] obtains vitals signs and assesses pt. Nothing remarkable noted upon exam other than mild discomfort described as pressure when palpating lower abdomen. Pt is able to provide a clean catch of urine. [facility] obtains urine for culture and performs a urine dipstick test and uploads results. [facility] contacts [facility] and discusses the above findings. [facility] encourages pt to follow up w/ her doctor to go over the results of the culture in a few days. [facility] orders [facility] to administer 1 tablet of nitrofurantoin PO for the pt and calls in a prescription to pt's preferred pharmacy. Pt and thank [facility] for coming.[facility] is clear. Report completed by YURY Lee [id number]. [facility] Orders: culture, urine: Performed .................... .................... .................... .................... .................... .................... .................... . [facility] Consulted: Romeo Young .................... .................... .................... .................... .................... .................... .................... . Disposition: Fulfilled Romeo Young MD [address] [place] [address],[address], [place], [address], [employer], [facility] 09/15/2024 14:14:11 OBGyn Episode No OBEpisode recorded.
[2024-09-16 10:32] LABS: Lactic Acid 2.9 mmol/L (0.5-2.0)
[2024-09-16 10:33] LABS: Alanine Aminotransferase 12 U/L (0-31); Albumin Level 3.1 g/dL (3.5-5.0); Alkaline Phosphatase 99 U/L (39-117); Anion Gap 16 (12-20); Aspartate Amino Transferase 37 U/L (5-31); Bilirubin Total 0.7 mg/dL (0.0-1.0); Blood Urea Nitrogen 18 mg/dL (9-16); C Reactive Protein 10.95 mg/dL (< or = 0.50); Calcium 8.5 mg/dL (8.4-10.2); Carbon Dioxide 27 mmol/L (22-29); Chloride 92 mmol/L (96-108); Estimated Glomerular Filt Rate 41; Glucose Random 51 mg/dL (60-115); Potassium 4.6 mmol/L (3.3-5.1); Sodium 130 mmol/L (135-145); Total Protein 6.3 g/dL (6.5-8.0)
[2024-09-16] MEDS: 0.9 % Sodium Chloride 1,000 ML 999 ML IV (10:34)
[2024-09-16 10:40] LABS: Erythrocyte Sedimentation Rate 29 MM/HR (0-20)
[2024-09-16] MEDS: Dextrose 10 % 250 ML 750 ML IV (10:42)
--- NOTE | 2024-09-16 11:04 | PC.NURSE ---
Pt.'s requested to remove pt.'s upper and lower dentures. Uppers and lowers removed, both placed in a denture cup with a lid. states that he is taking them home with him.
--- NOTE | 2024-09-16 11:42 | PC.NURSE ---
Random glucose critical at 51. 250ccs DD10 ordered. POC s/p D10 infusion = 121
[2024-09-16 11:46] LABS: Glucose, Whole Blood 121 mg/dL (60-115)
[2024-09-16 11:48] LABS: Reflex Lactate? Lactic Acid Added
[2024-09-16 12:03] LABS: Appearance Urine Clear; Color Urine Dark Yellow; Glucose Urine UA Negative (Negative); Leukocyte Esterase Urine Negative (Negative); Nitrite Urine Negative (Negative); PH 5.5 (5.0-9.0); UMIC TRIGGER UACC YES; Urine Blood Negative (Negative); Urine Ketones 15 mg/dL (Negative); Urine Protein 100 (2+) mg/dL (Neg-Trace)
[2024-09-16 12:05] LABS: Bacteria Urine None Seen (None Seen); Hyaline Casts Urine 0-2 /LPF (0-2); RBC Urine 0-2 /HPF (0-2); Squamous Epithelial Cell Urine 0-2 /HPF (0-2); WBC Urine 0-5 /HPF (0-5)
[2024-09-16 12:49] LABS: ~Lactic Acid-LAB USE ONLY 2.7 mmol/L (0.5-2.0)
[2024-09-16 12:58] LABS: Glucose, Whole Blood 78 mg/dL (60-115)
[2024-09-16] MEDS: Dextrose 5 % and 0.9 % NaCl 1,000 ML 125 ML IVCONT ×2 (13:11→22:16)
--- NOTE | 2024-09-16 13:24 | PHA.MEDREC ---
Addendum entered by Michelle Coats RPh 09/16/24 14:08: Redviewed by [facility] Original Note: Pharmacy Consult ? Medication Reconciliation Pharmacy has completed the medication reconciliation. Spoke to patients daughter Vanna to confirm med list. Daughter states patient is no longer taking Nystatin tj, Ondansetron 8 mg, Oxycodone 5 mg, Senna 8.6 mg, Sucralfate 100 mg/ML, Umeclidinium 62.5 mcg powder inhalation. Daughter says patient on 09/15/24 only took one dose of Macrobid (end date is 09/21/24).
--- NOTE | 2024-09-16 14:00 | P.HPHOSP_ITS ---
History of Present Illness Date of Service: 09/16/24 Chief Complaint: weakness/confusion The patient is a 69 year old female with past medical history of renal cell carcinoma with Mets to liver and lung (per history from family), chronic respiratory failure with hypoxia on 2 L at baseline, COPD, bronchiectasis, history of PE on Eliquis and probable undiagnosed dementia/cognitive impairment who presents to the emergency room with worsening confusion and poor oral intake. The patient was diagnosed with a urinary tract infection on the day prior to hospitalization and has received 1 dose of antibiotics at home. Workup in the ED reveals chest imaging with multifocal infiltrates. Her UA is not indicative of urinary tract infection. She is tachycardic and has an increased oxygen requirements, up to 5 L from baseline of 2 L. BMP shows acute kidney injury with a as serum creatinine of 1.3, baseline around 0.7-0.8. She was also found to be hypoglycemic in the 50s. Initially the patient was afebrile but now has spiked a temperature up to 102.3. The patient has been given some IV antibiotics as well as IV fluids. See continues to remain confused and now will be admitted for further workup and treatment. Patient is seen and examined in the ED around 13:45. She is somnolent but arousable to persistent verbal stimuli. She knows that she is at [facility] but otherwise is dose oriented. A telephone discussion with the patient's and daughter who are the healthcare proxies reveals that over the last several days she has had progressive confusion/?brain fog. She has intermittent cough but does not have appear to have respiratory distress. I Review of Systems 2 Review of Systems: unable to review due to mental status [facility] Medical History Medication management Annual physical exam Weakness Dizziness Elevated C-reactive protein (CRP) Fever LANEY (obstructive sleep apnea) Cough Pleuritic chest pain COPD exacerbation Confusion Chest wall pain Bilateral knee pain Shoulder pain, left Left elbow pain Right foot pain COVID-19 Malignant neoplasm of left kidney Diminished libido Breast cancer screening by mammogram UTI (urinary tract infection) Colon cancer screening Easy bruising Chest pain Status post fall Supplemental oxygen dependent Lytic lesion of bone on x-ray Fluid in endometrial cavity Physical deconditioning Cancer cachexia Acquired hypothyroidism COPD (chronic obstructive pulmonary disease) Liver lesion Right lower lobe lung mass Post-operative nausea and vomiting Dry eye COVID-19 COPD (chronic obstructive pulmonary disease) Vitamin D deficiency Depression Primary osteoarthritis of knees, bilateral Pure hypercholesterolemia Palpitations Constipation Obstructive sleep apnea Anxiety Benign essential hypertension Oral thrush Lumbar degenerative disc disease Chronic allergic bronchitis GERD (gastroesophageal reflux disease) Family History Father Hypertension CVD (cardiovascular disease) Cancer Mother Hypertension Substance abuse Other Mental health problem Surgical History Metastatic renal cell carcinoma to lung H/O kidney removal Hx of oral surgery Hx of tonsillectomy Pulmonary nodule 1 cm or greater in diameter History of nephrectomy Social History Household Members: Spouse Household Members Other:: and brother and sister Housing: House Are you a primary long term care administrator to a significant other at home: No Do you presently have visiting nurse or other home services: Yes Alcohol intake: never Comment: COUNTS CORRECT Patient Tobacco Use Status: Former Tobacco user Tobacco use type: Cigarette Cigarette Packs Per Day: 1.5 Years Smoked: 30 e-Cigarette/Vaping Use: Currently Using Second Hand Smoke Exposure: No Advance Directives: Yes Advance Directives on File: Yes Advance Directives Date on File: 11/29/23 Do you have a plan to hurt others: No Plan service: No Current occupational status: disabled Cognitive needs: No Hearing needs: No Vision needs: No Meds Allergies Allergy/AdvReac Type Severity Reaction Status Date / Time Sulfa (Sulfonamide Allergy Severe ANAPHYLAXIS Verified 09/16/24 09:28 Antibiotics) Penicillins Allergy Intermediate RASH Verified 09/16/24 09:28 aspirin [ASA] AdvReac Severe severe Verified 09/16/24 09:28 stomach pain NSAIDS (Non-Steroidal AdvReac Severe severe Verified 09/16/24 09:28 Anti-Inflamma stomach pain codeine [Codeine] AdvReac Intermediate NAUSEA & Verified 09/16/24 09:28 VOMITING Active Medications: Current Medications Dextrose (D10) 250 mls @ 750 mls/hr IV Q15M PRN PRN Reason: per Hypoglycemia Standing Ord. Last Infusion: 09/16/24 11:38 Dose: Infused Dextrose/Sodium Chloride (D5ns) 1,000 mls @ 125 mls/hr IVCONT .Q8H ENE Last Admin: 09/16/24 13:11 Dose: 125 mls/hr Home Medications ?Medication ?Instructions ?Recorded ?Confirmed ?Last Taken ?Type Magic Mouthwash 10 ml PO QID PRN sores 07/01/24 09/16/24 09/14/24 History Diphen/Lido/Antacid 1:1:1 240 mL suspension albuterol sulfate 90 mcg/actuation 2 puff inhalation DAILY PRN 07/01/24 09/16/24 09/14/24 History aerosol inhaler shortness of breath or wheezing levothyroxine 25 mcg tablet 25 mcg PO DAILY@0600 07/01/24 09/16/24 09/14/24 History (Synthroid) lidocaine HCl 2 % mucosal solution 1 appl mucous membrane QID PRN 07/01/24 09/16/24 09/14/24 History (Lidocaine Viscous) mouth sores nitrofurantoin 1 cap PO BID 09/16/24 09/16/24 09/15/24 History monohydrate/macrocrystals 100 mg capsule pantoprazole 40 mg tablet,delayed 40 mg PO DAILY@0630 09/16/24 09/16/24 09/14/24 History release Physical Exam 2 Vital Signs and Narrative: Vital Signs: Last Vital Signs Temp 102.3 F H 09/16/24 13:43 Pulse 107 H 09/16/24 13:43 Resp 18 09/16/24 13:43 BP 109/69 09/16/24 13:43 Pulse Ox 96 09/16/24 13:43 O2 Del Method Nasal Cannula 09/16/24 13:43 O2 Flow Rate 4 09/16/24 13:43 Oxygen Flow Rate 4 09/16/24 09:26 BMI result Body Mass Index 19.1 Const: Other: Constitutional - somnolent but arousable to verbal stimuli Eyes - PERRLA, EOMI Cardiovascular - S1S2, tachycardic, No edema Respiratory - saturation 90s on 5L; desaturates to below 88% on baseline 2L; diminished sounds Gastrointestinal - NT / ND; +BS; No rebound or guarding - No CVA tenderness Extremities - no calf tenderness bilaterally, no swelling Musculoskeletal - Normal inspection, normal ROM Skin - Warm/Dry Neurological - oriented to self, otherwise disoriented Psychological - Appropriate affect Results Labs 09/16/24 09:43 09/16/24 09:43 Labs: Laboratory Results - last 24 hr 09/16/24 09/16/24 09/16/24 09:43 09:44 09:48 MCV 84.7 MCH 28.2 MCHC 33.2 RDW 14.0 Plt Count 286 MPV 9.2 L Immature Gran % (Auto) 0.5 H Neut % (Auto) 89.9 H Lymph % (Auto) 1.9 L [place] % (Auto) 6.7 Eos % (Auto) 0.4 Baso % (Auto) 0.6 Lymph # (Auto) 0.3 L [place] # (Auto) 1.1 Eos # (Auto) 0.1 Baso # (Auto) 0.1 Abs Immat Gran (auto) 0.08 H Absolute Neuts (auto) 14.0 H Absolute Nucleated RBC 0.000 Nucleated RBC % (auto) 0.0 ESR 29 H VBG pH 7.27 L VBG pCO2 62 VBG pO2 40 VBG HCO3 29 H VBG O2 Saturation 54.0 VBG Base Excess 0.5 Anion Gap 16 Estim Creat Clear Calc 32.0 Estimated GFR 41 POC Glucose Random Glucose 51 L* Lactic Acid 2.9 H* Lactic Acid F/U @ 2Hr Calcium 8.5 D Total Bilirubin 0.7 AST 37 H ALT 12 Alkaline Phosphatase 99 C-Reactive Protein 10.95 H Total Protein 6.3 L Albumin 3.1 L Urine Color Urine Appearance Urine pH Ur Specific [place] Urine Protein Urine Glucose (UA) Urine Ketones Urine Blood Urine Nitrite Ur Leukocyte Esterase Urine RBC Urine WBC Ur Squamous Epith Cells Urine Bacteria Hyaline Casts 09/16/24 09/16/24 09/16/24 11:41 11:53 12:21 MCV MCH MCHC RDW Plt Count MPV Immature Gran % (Auto) Neut % (Auto) Lymph % (Auto) [place] % (Auto) Eos % (Auto) Baso % (Auto) Lymph # (Auto) [place] # (Auto) Eos # (Auto) Baso # (Auto) Abs Immat Gran (auto) Absolute Neuts (auto) Absolute Nucleated RBC Nucleated RBC % (auto) ESR VBG pH VBG pCO2 VBG pO2 VBG HCO3 VBG O2 Saturation VBG Base Excess Anion Gap Estim Creat Clear Calc Estimated GFR POC Glucose 121 H Random Glucose Lactic Acid Lactic Acid F/U @ 2Hr 2.7 H* Calcium Total Bilirubin AST ALT Alkaline Phosphatase C-Reactive Protein Total Protein Albumin Urine Color Dark Yellow Urine Appearance Clear Urine pH 5.5 Ur Specific [place] 1.020 Urine Protein 100 (2+) H Urine Glucose (UA) Negative Urine Ketones 15 Urine Blood Negative Urine Nitrite Negative Ur Leukocyte Esterase Negative Urine RBC 0-2 Urine WBC 0-5 Ur Squamous Epith Cells 0-2 Urine Bacteria None Seen Hyaline Casts 0-2 09/16/24 12:53 MCV MCH MCHC RDW Plt Count MPV Immature Gran % (Auto) Neut % (Auto) Lymph % (Auto) [place] % (Auto) Eos % (Auto) Baso % (Auto) Lymph # (Auto) [place] # (Auto) Eos # (Auto) Baso # (Auto) Abs Immat Gran (auto) Absolute Neuts (auto) Absolute Nucleated RBC Nucleated RBC % (auto) ESR VBG pH VBG pCO2 VBG pO2 VBG HCO3 VBG O2 Saturation VBG Base Excess Anion Gap Estim Creat Clear Calc Estimated GFR POC Glucose 78 Random Glucose Lactic Acid Lactic Acid F/U @ 2Hr Calcium Total Bilirubin AST ALT Alkaline Phosphatase C-Reactive Protein Total Protein Albumin Urine Color Urine Appearance Urine pH Ur Specific [place] Urine Protein Urine Glucose (UA) Urine Ketones Urine Blood Urine Nitrite Ur Leukocyte Esterase Urine RBC Urine WBC Ur Squamous Epith Cells Urine Bacteria Hyaline Casts Imaging Radiologist's Impressions: Impressions Chest X-Ray 09/16/24 09:28 IMPRESSION: Bilateral multifocal opacities, most notable in the [id number] right lung. This study was presented today to September 16, 2024 for interpretation. Stat results provided at this time as requested by referring provider. Electronically signed by: Elvia Arreola MD 09/16/2024 11:56 AM [facility] Assessment and Plan (1) Sepsis: Status: Acute Plan 69 yo F with metastatic renal cell ca, copd on chronic 2L O2, PE on eliquis and multiple others who presents with confusion and found to have increasing oxygen requirements and work up consistent with multifocal pneumonia leading to sepsis. 1. Severe Sepsis secondary to multifocal pneumonia Meets sepsis criteria based on tachycardia/leukocytosis; severe features including elevated lactate and DIEUDONNE risk factors include COPD and chronic resp failure + metastatic renal cell Ca being actively treated given rocephin in the ED, will add vancomcyin f/u cultures sepsis focus exam completed will check CT chest given underlying known metastatic disease (to delineate pneumonia further) 2. Acute toxic/metabolic encephalopathy pt somnolent and oriented to self only; typically AAOx3 (although per family starting to exhibit signs of memory loss /dementia at home) due to #1 compounded by DIEUDONNE + hypoglycemia 3. DIEUDONNE baseline SCr 0.7; nearly doubled to 1.3 due to #1 and poor oral intake follow bmp 4. Acute on chronic resp failure with hypoxia 4a. acute resp failure with hypercarbia acutely worsened with desaturation below 88% on her baseline 2L; checked multitple times by me personally in the ED continue O2 with goal os 92 AM vbg showing co2 retention -- will repeat STAT at this time, may need bipap --> repeat VBG improved due to pneumonia 5. Hypoglycemia in a non-diabetic due to poor oral intake on D5NS -- will continue 6. HypoNa likely hypovoluemic -- give IVF and monitor 7. History of metastatic renal cell ca on q3week infusion + oral meds outpatient follow up will hold PO meds for now given mental status Full Code (confirmed with family) DVT pptx - eliquis once able to take po; will give treatment dose lovenox given active Ca and prior history of PE Pt with respiratory failure, DIEUDONNE, sepsis in the setting of known active cancer complicated by acute metabolic encephalopathy therefore expected to require at least 2 midnights in the hospital for treatment hence will be admitted as inpt Quality Stroke Does the patient have a stroke diagnosis?: No VTE Prior VTE?: No VTE Risk Level:: Medical - moderate - high VTE Device Contraindication: N/A - Device Ordered VTE Drug Contraindication: N/A - Med Ordered
[2024-09-16 14:09] LABS: Glucose, Whole Blood 76 mg/dL (60-115)
--- NOTE | 2024-09-16 14:23 | PC.NURSE ---
Greg Juan MD aware that pt. failed swallow screen. ordering rectal Tylenol
[2024-09-16 14:24] LABS: Reflex Lactate? 2 Y
--- NOTE | 2024-09-16 14:24 | PC.NURSE ---
Per MD: SPO2 goal = 90%
[2024-09-16] MEDS: Acetaminophen Supp 650 MG SUPP.RECT PR (14:54)
[2024-09-16] MEDS: vancomycin HCL 1,250 MG in 0.9 % Sodium Chloride 250 ML 166.67 MG IV (14:55)
[2024-09-16 14:58] LABS: Venous Blood Gas Refer to POC result
[2024-09-16 14:58] LABS: VBG HCO3 27 mmol/L (22-26); VBG pCO2 47 mmHg; VBG pH 7.37 (7.32-7.43); VBG pO2 75 mmHg
[2024-09-16 15:12] LABS: ~Lactic Acid-LAB USE ONLY 1.4 mmol/L (0.5-2.0)
--- NOTE | 2024-09-16 15:38 | PHA.PROG ---
Admission Date/Time: September 16, 2024 13:58 Indication: SEPSIS Weight in k.9 kg Adjusted body weight in Kg: Gerlaw body weight in Kg: Obesity Dosing Indication % IBW: Serum Creatinine - Last 168 Hours 09/16/24 09:43 Creatinine 1.30 Estimated CrCl and GFR - Last 168 Hours 09/16/24 09:43 Estim Creat Clear Calc 32.0 Estimated GFR 41 Vancomycin Loading Dose: 1250 MG Current Vancomycin Dosing Regimen: 1000 MG Q24H Vancomycin Monitoring using AUC goal of 400 - 600 range with trough as surrogate marker: BRO=016 TROUGH=19 Date and Time for next Vancomycin Level to be drawn: 09/19/24 @1300 Pharmacist Comments on Vancomycin Plan: INITIATE MAINTENANCE DOSE AGGRESSIVELY DUE TO INDICATION OF SEPSIS, AFTER THIRD DOSE, AUC SHOULD BE 506, TROUGH 15.7, THEN CAN ADJUST DOSE ACCORDINGLY. Vancomycin dosing will take advantage of [employer] as a clinical decision support tool that uses Bayesian modeling to calculate individual patient's pharmacokinetic parameters and forecast the patient's drug concentration time course with the target goal AUC 24 range of 400 - 600 mg/L/hr.
[2024-09-16 15:46] LABS: Glucose, Whole Blood 82 mg/dL (60-115)
[2024-09-16 17:06] LABS: Glucose, Whole Blood 90 mg/dL (60-115)
[2024-09-16] MEDS: Enoxaparin Sodium 60 MG/0.6 ML SYRINGE 50 MG SUBCUT (18:34)
[2024-09-16 21:21] LABS: Glucose, Whole Blood 109 mg/dL (60-115)
--- NOTE | 2024-09-16 22:05 | PC.NURSE ---
New admission to Room 350. Patient with confusion, hypoglycemia on arrival to ED , poc in the 50s. Poc checked on arrival to unit, poc is 109. Patient is non diabetic , per md notes, hypoglycemia due to poor oral intake. Currently has D5NS @ 125mls/hr and there is an order for POC Q1HR. Dr. Martinez made aware. Per Dr. Martinez, change to POC Q2HR at this time.
[2024-09-16 23:58] LABS: Glucose, Whole Blood 110 mg/dL (60-115)
[2024-09-17 02:52] LABS: Glucose, Whole Blood 117 mg/dL (60-115)
[2024-09-17 03:48] LABS: Glucose, Whole Blood 104 mg/dL (60-115)
[2024-09-17 04:00] VITALS: BP 135/73; PULSE 94; TEMP 36.2; O2SAT 94
[2024-09-17] MEDS: Dextrose 5 % and 0.9 % NaCl 1,000 ML 125 ML IVCONT ×2 (05:56→17:57)
[2024-09-17] MEDS: Enoxaparin Sodium 60 MG/0.6 ML SYRINGE 50 MG SUBCUT ×2 (05:57→18:07)
[2024-09-17 06:07] LABS: Glucose, Whole Blood 102 mg/dL (60-115)
[2024-09-17 06:13] LABS: MANUAL DIFF FLAG NO
[2024-09-17 06:17] LABS: Basophils Percent Auto 0.6 % (0-2); Eosinophils Absolute Auto 0.4 X10*3/uL (0.0-0.4); Eosinophils Percent Auto 6.1 % (0-4); Hematocrit 33.3 % (37.0-47.0); Hemoglobin 10.8 g/dl (12.0-16.0); Imm Gran Abs Auto 0.02 X10*3/uL (0.00-0.03); Imm Gran Pct Auto 0.3 % (0.0-0.4); Lymphocytes Absolute Auto 0.3 X10*3/uL (1.2-4.9); Lymphocytes Percent Auto 4.2 % (20-40); Mean Corpuscular HGB Conc 32.4 g/dl (31.0-35.0); Mean Corpuscular Volume 86.3 fL (80.0-98.0); Mean Platelet Volume 9.4 fL (9.4-12.3); Monocytes Absolute Auto 0.4 X10*3/uL (0.1-1.2); Monocytes Percent Auto 6.3 % (2-11); Neutrophils Absolute Auto 5.7 x10*3/uL (2.0-8.3); Neutrophils Percent Auto 82.5 % (45-73); Platelet Count 203 X10*3/uL (160-400); Red Blood Count 3.86 X10*6/uL (4.20-5.50); Red Cell Distribution Width 14.3 % (11.0-16.0); White Blood Count 6.9 X10*3/uL (4.8-10.8)
[2024-09-17 06:47] LABS: Anion Gap 9 (12-20); Blood Urea Nitrogen 13 mg/dL (9-16); Calcium 7.9 mg/dL (8.4-10.2); Carbon Dioxide 25 mmol/L (22-29); Chloride 103 mmol/L (96-108); Estimated Glomerular Filt Rate > 60; Glucose Random 115 mg/dL (60-115); Potassium 3.6 mmol/L (3.3-5.1); Sodium 133 mmol/L (135-145)
[2024-09-17 07:28] LABS: Glucose, Whole Blood 108 mg/dL (60-115)
[2024-09-17 07:49] VITALS: BP 135/69; PULSE 96; RESP 18; TEMP 34.8; O2SAT 95
[2024-09-17 08:36] LABS: Glucose, Whole Blood 95 mg/dL (60-115)
--- NOTE | 2024-09-17 08:41 | P.PNIM_ITS ---
Subjective Subjective Date of Service: 09/17/24 Review of Systems Follow up PNA still some confusion but better Physical Exam 2 Vital Signs: Vital Signs: Last Vital Signs Temp 94.7 F L 09/17/24 07:49 Pulse 96 09/17/24 07:49 Resp 18 09/17/24 07:49 BP 135/69 09/17/24 07:49 Pulse Ox 95 09/17/24 07:49 O2 Del Method Nasal Cannula 09/17/24 07:49 O2 Flow Rate 0.5 09/17/24 07:49 Oxygen Flow Rate 4 09/16/24 09:26 BMI result Body Mass Index 19.7 Appearing in no acute distress lung sounds are clear to auscultation heart regular rate rhythm, clear S1, S2 positive bowel sounds, abdomen is soft, nontender neuro patient is alert x3, no focal deficits Objective Data Active Medications Acetaminophen (Acetaminophen Supp 650 Mg Supp.Rect) 650 mg [place] Q6H PRN PRN Reason: Fever Last Admin: 09/16/24 14:54 Dose: 650 mg Documented By: ALVA Calcium Carbonate (Calcium Carbonate 750 Mg Tab.Chew) 750 mg PO Q4H PRN PRN Reason: Heartburn Ceftriaxone Sodium (Ceftriaxone Sodium 1 Gm Vial) 1 gm IVPUSH Q24H [facility] Enoxaparin Sodium (Enoxaparin Sodium 60 Mg/0.6 Ml Syringe) 50 mg SUBCUT Q12H [facility] Last Admin: 09/17/24 05:57 Dose: 50 mg Documented By: ELIDA Dextrose (D10) 250 mls @ 750 mls/hr IV Q15M PRN PRN Reason: per Hypoglycemia Standing Ord. Last Infusion: 09/16/24 11:38 Dose: Infused Documented By: ALVA Dextrose/Sodium Chloride (D5ns) 1,000 mls @ 125 mls/hr IVCONT .Q8H [facility] Last Admin: 09/17/24 05:56 Dose: 125 mls/hr Documented By: ELIDA Vancomycin HCl 1,000 mg/ (Sodium Chloride) 270 mls @ 270 mls/hr IV Q24H [facility] Magnesium Hydroxide (Milk Of Magnesia 30 Ml Oral.Susp) 30 ml PO DAILY PRN PRN Reason: Constipation Melatonin (Melatonin 3 Mg Tablet) 6 mg PO BEDTIME PRN PRN Reason: Insomnia Pharmacy Consult (Consult Rx Vancomycin Dosing) 1 each MISCELLANE DAILY PRN PRN Reason: Consult order Sodium Chloride (0.9 % Sodium Chloride Flush 3 Ml Syringe) 3 ml IVFLUSH QSHIFT ENE Last Admin: 09/17/24 05:57 Dose: Not Given Documented By: ELIDA Non-Admin Reason: IV Running Labs 09/17/24 05:17 09/17/24 05:17 Labs: Laboratory Results - last 24 hr 09/16/24 09/16/24 09/16/24 09:43 09:44 09:48 MCV 84.7 MCH 28.2 MCHC 33.2 RDW 14.0 Plt Count 286 MPV 9.2 L Immature Gran % (Auto) 0.5 H Neut % (Auto) 89.9 H Lymph % (Auto) 1.9 L [place] % (Auto) 6.7 Eos % (Auto) 0.4 Baso % (Auto) 0.6 Lymph # (Auto) 0.3 L [place] # (Auto) 1.1 Eos # (Auto) 0.1 Baso # (Auto) 0.1 Abs Immat Gran (auto) 0.08 H Absolute Neuts (auto) 14.0 H Absolute Nucleated RBC 0.000 Nucleated RBC % (auto) 0.0 ESR 29 H VBG pH 7.27 L VBG pCO2 62 VBG pO2 40 VBG HCO3 29 H VBG O2 Saturation 54.0 VBG Base Excess 0.5 Anion Gap 16 Estim Creat Clear Calc 32.0 Estimated GFR 41 POC Glucose Random Glucose 51 L* Lactic Acid 2.9 H* Lactic Acid F/U @ 2Hr Lactic Acid F/U @ 4Hr Calcium 8.5 D Total Bilirubin 0.7 AST 37 H ALT 12 Alkaline Phosphatase 99 C-Reactive Protein 10.95 H Total Protein 6.3 L Albumin 3.1 L Urine Color Urine Appearance Urine pH Ur Specific [place] Urine Protein Urine Glucose (UA) Urine Ketones Urine Blood Urine Nitrite Ur Leukocyte Esterase Urine RBC Urine WBC Ur Squamous Epith Cells Urine Bacteria Hyaline Casts 09/16/24 09/16/24 09/16/24 11:41 11:53 12:21 MCV MCH MCHC RDW Plt Count MPV Immature Gran % (Auto) Neut % (Auto) Lymph % (Auto) [place] % (Auto) Eos % (Auto) Baso % (Auto) Lymph # (Auto) [place] # (Auto) Eos # (Auto) Baso # (Auto) Abs Immat Gran (auto) Absolute Neuts (auto) Absolute Nucleated RBC Nucleated RBC % (auto) ESR VBG pH VBG pCO2 VBG pO2 VBG HCO3 VBG O2 Saturation VBG Base Excess Anion Gap Estim Creat Clear Calc Estimated GFR POC Glucose 121 H Random Glucose Lactic Acid Lactic Acid F/U @ 2Hr 2.7 H* Lactic Acid F/U @ 4Hr Calcium Total Bilirubin AST ALT Alkaline Phosphatase C-Reactive Protein Total Protein Albumin Urine Color Dark Yellow Urine Appearance Clear Urine pH 5.5 Ur Specific [place] 1.020 Urine Protein 100 (2+) H Urine Glucose (UA) Negative Urine Ketones 15 Urine Blood Negative Urine Nitrite Negative Ur Leukocyte Esterase Negative Urine RBC 0-2 Urine WBC 0-5 Ur Squamous Epith Cells 0-2 Urine Bacteria None Seen Hyaline Casts 0-2 09/16/24 09/16/24 09/16/24 12:53 14:03 14:49 MCV MCH MCHC RDW Plt Count MPV Immature Gran % (Auto) Neut % (Auto) Lymph % (Auto) [place] % (Auto) Eos % (Auto) Baso % (Auto) Lymph # (Auto) [place] # (Auto) Eos # (Auto) Baso # (Auto) Abs Immat Gran (auto) Absolute Neuts (auto) Absolute Nucleated RBC Nucleated RBC % (auto) ESR VBG pH VBG pCO2 VBG pO2 VBG HCO3 VBG O2 Saturation VBG Base Excess Anion Gap Estim Creat Clear Calc Estimated GFR POC Glucose 78 76 Random Glucose Lactic Acid Lactic Acid F/U @ 2Hr Lactic Acid F/U @ 4Hr 1.4 Calcium Total Bilirubin AST ALT Alkaline Phosphatase C-Reactive Protein Total Protein Albumin Urine Color Urine Appearance Urine pH Ur Specific [place] Urine Protein Urine Glucose (UA) Urine Ketones Urine Blood Urine Nitrite Ur Leukocyte Esterase Urine RBC Urine WBC Ur Squamous Epith Cells Urine Bacteria Hyaline Casts 09/16/24 09/16/24 09/16/24 14:53 15:04 17:00 MCV MCH MCHC RDW Plt Count MPV Immature Gran % (Auto) Neut % (Auto) Lymph % (Auto) [place] % (Auto) Eos % (Auto) Baso % (Auto) Lymph # (Auto) [place] # (Auto) Eos # (Auto) Baso # (Auto) Abs Immat Gran (auto) Absolute Neuts (auto) Absolute Nucleated RBC Nucleated RBC % (auto) ESR VBG pH 7.37 VBG pCO2 47 VBG pO2 75 VBG HCO3 27 H VBG O2 Saturation 94.0 VBG Base Excess 2.0 Anion Gap Estim Creat Clear Calc Estimated GFR POC Glucose 82 90 Random Glucose Lactic Acid Lactic Acid F/U @ 2Hr Lactic Acid F/U @ 4Hr Calcium Total Bilirubin AST ALT Alkaline Phosphatase C-Reactive Protein Total Protein Albumin Urine Color Urine Appearance Urine pH Ur Specific [place] Urine Protein Urine Glucose (UA) Urine Ketones Urine Blood Urine Nitrite Ur Leukocyte Esterase Urine RBC Urine WBC Ur Squamous Epith Cells Urine Bacteria Hyaline Casts 09/16/24 09/16/24 09/17/24 21:17 23:50 02:11 MCV MCH MCHC RDW Plt Count MPV Immature Gran % (Auto) Neut % (Auto) Lymph % (Auto) [place] % (Auto) Eos % (Auto) Baso % (Auto) Lymph # (Auto) [place] # (Auto) Eos # (Auto) Baso # (Auto) Abs Immat Gran (auto) Absolute Neuts (auto) Absolute Nucleated RBC Nucleated RBC % (auto) ESR VBG pH VBG pCO2 VBG pO2 VBG HCO3 VBG O2 Saturation VBG Base Excess Anion Gap Estim Creat Clear Calc Estimated GFR POC Glucose 109 110 117 H Random Glucose Lactic Acid Lactic Acid F/U @ 2Hr Lactic Acid F/U @ 4Hr Calcium Total Bilirubin AST ALT Alkaline Phosphatase C-Reactive Protein Total Protein Albumin Urine Color Urine Appearance Urine pH Ur Specific [place] Urine Protein Urine Glucose (UA) Urine Ketones Urine Blood Urine Nitrite Ur Leukocyte Esterase Urine RBC Urine WBC Ur Squamous Epith Cells Urine Bacteria Hyaline Casts 09/17/24 09/17/24 09/17/24 03:45 05:17 06:03 MCV 86.3 MCH 28.0 MCHC 32.4 RDW 14.3 Plt Count 203 D MPV 9.4 Immature Gran % (Auto) 0.3 Neut % (Auto) 82.5 H Lymph % (Auto) 4.2 L [place] % (Auto) 6.3 Eos % (Auto) 6.1 H Baso % (Auto) 0.6 Lymph # (Auto) 0.3 L [place] # (Auto) 0.4 Eos # (Auto) 0.4 Baso # (Auto) 0.0 Abs Immat Gran (auto) 0.02 Absolute Neuts (auto) 5.7 Absolute Nucleated RBC 0.000 Nucleated RBC % (auto) 0.0 ESR VBG pH VBG pCO2 VBG pO2 VBG HCO3 VBG O2 Saturation VBG Base Excess Anion Gap 9 L Estim Creat Clear Calc 69.0 Estimated GFR > 60 POC Glucose 104 102 Random Glucose 115 Lactic Acid Lactic Acid F/U @ 2Hr Lactic Acid F/U @ 4Hr Calcium 7.9 L D Total Bilirubin AST ALT Alkaline Phosphatase C-Reactive Protein Total Protein Albumin Urine Color Urine Appearance Urine pH Ur Specific [place] Urine Protein Urine Glucose (UA) Urine Ketones Urine Blood Urine Nitrite Ur Leukocyte Esterase Urine RBC Urine WBC Ur Squamous Epith Cells Urine Bacteria Hyaline Casts 09/17/24 09/17/24 07:24 08:32 MCV MCH MCHC RDW Plt Count MPV Immature Gran % (Auto) Neut % (Auto) Lymph % (Auto) [place] % (Auto) Eos % (Auto) Baso % (Auto) Lymph # (Auto) [place] # (Auto) Eos # (Auto) Baso # (Auto) Abs Immat Gran (auto) Absolute Neuts (auto) Absolute Nucleated RBC Nucleated RBC % (auto) ESR VBG pH VBG pCO2 VBG pO2 VBG HCO3 VBG O2 Saturation VBG Base Excess Anion Gap Estim Creat Clear Calc Estimated GFR POC Glucose 108 95 Random Glucose Lactic Acid Lactic Acid F/U @ 2Hr Lactic Acid F/U @ 4Hr Calcium Total Bilirubin AST ALT Alkaline Phosphatase C-Reactive Protein Total Protein Albumin Urine Color Urine Appearance Urine pH Ur Specific [place] Urine Protein Urine Glucose (UA) Urine Ketones Urine Blood Urine Nitrite Ur Leukocyte Esterase Urine RBC Urine WBC Ur Squamous Epith Cells Urine Bacteria Hyaline Casts Assessment and Plan (1) Pneumonia: Status: Acute Plan 69 yo F with metastatic renal cell ca, copd on chronic 2L O2, PE on eliquis and multiple others who presents with confusion and found to have increasing oxygen requirements and work up consistent with multifocal pneumonia leading to sepsis. Severe Sepsis secondary to multifocal pneumonia. Sepsis resolved Meets sepsis criteria based on tachycardia/leukocytosis; severe features including elevated lactate and DIEUDONNE risk factors include COPD and chronic resp failure + metastatic renal cell Ca being actively treated given rocephin in the ED, added vancomcyin f/u cultures CT chest given underlying known metastatic disease Acute toxic/metabolic encephalopathy. Resolving pt somnolent and oriented to self only intially; typically AAOx3 (although per family starting to exhibit signs of memory loss /dementia at home) due to #1 compounded by DIEUDONNE + hypoglycemia DIEUDONNE. Resolved baseline SCr 0.7; nearly doubled to 1.3 due to #1 and poor oral intake follow bmp Acute on chronic resp failure with hypoxia. Resolved 4a. acute resp failure with hypercarbia acutely worsened with desaturation below 88% on her baseline 2L continue O2 with goal o2 of 92% AM vbg showing co2 retention will repeat STAT at this time, may need bipap --> repeat VBG improved due to pneumonia Hypoglycemia. resolved in a non-diabetic due to poor oral intake on D5NS -- will continue for now diet started HypoNa likely hypovolemia History of metastatic renal cell ca on q3week infusion + oral meds outpatient follow up Full Code (confirmed with family) DVT pptx - eliquis once able to take po; will give treatment dose lovenox given active Ca and prior history of PE Quality Stroke Does the patient have a stroke diagnosis?: No VTE Prior VTE?: No VTE Risk Level:: Medical - moderate - high VTE Device Contraindication: N/A - Device Ordered VTE Drug Contraindication: N/A - Med Ordered
--- NOTE | 2024-09-17 09:18 | MHC.CM.PN ---
PT LIVES W/ AND MULTIPLE FAMILY MEMBERS PT IS ON HOME 02 HAS OWN RIDE HOME MESSAGE LEFT FOR RONNELL TO CONFIRM SERVIES THAT ARE IN PLACE
[2024-09-17] MEDS: cefTRIAXone sodium 1 GM VIAL IVPUSH (09:40)
[2024-09-17 10:02] LABS: Glucose, Whole Blood 98 mg/dL (60-115)
[2024-09-17 12:03] LABS: Glucose, Whole Blood 132 mg/dL (60-115)
[2024-09-17 12:58] VITALS: BP 135/69; PULSE 96; O2SAT 95
[2024-09-17 15:22] VITALS: BP 115/62; PULSE 91; RESP 16; TEMP 36.8; O2SAT 96
[2024-09-17] MEDS: vancomycin HCL 1,000 MG in 0.9 % Sodium Chloride 250 ML 270 MG IV (16:19)
[2024-09-17] MEDS: 0.9 % Sodium Chloride Flush 3 ML SYRINGE IVFLUSH (16:24)
[2024-09-17 16:57] LABS: Glucose, Whole Blood 76 mg/dL (60-115)
[2024-09-17] MEDS: Tamsulosin HCL 0.4 MG CAPSULE PO (18:07)
[2024-09-17 19:39] VITALS: BP 123/68; PULSE 98; RESP 18; TEMP 36.1; O2SAT 95
[2024-09-17 20:16] LABS: Glucose, Whole Blood 161 mg/dL (60-115)
[2024-09-18] VITALS (7 sets, daily range): BP systolic 115–146; BP diastolic 65–86; PULSE 88–92; RESP 16–18; TEMP 36–36.7; O2SAT 94–99
[2024-09-18] MEDS: Dextrose 5 % and 0.9 % NaCl 1,000 ML 125 ML IVCONT (02:23)
[2024-09-18] MEDS: Enoxaparin Sodium 60 MG/0.6 ML SYRINGE 50 MG SUBCUT ×2 (05:54→18:37)
[2024-09-18 06:19] LABS: Creatinine Clr Calc Pharmacy 89.3; Estimated Glomerular Filt Rate > 60
[2024-09-18 07:21] LABS: Glucose, Whole Blood 114 mg/dL (60-115)
[2024-09-18] MEDS: Tamsulosin HCL 0.4 MG CAPSULE PO (08:19)
[2024-09-18] MEDS: cefTRIAXone sodium 1 GM VIAL IVPUSH (08:19)
--- NOTE | 2024-09-18 09:27 | PC.NURSE ---
Patient notably more confused, and unable to organize thoughts from yesterday. This morning patient unable to manage swallowing a pill, chewed it and was clearly confused with how to manage the pill in her mouth. Patient's speech is rambling and revolves around social media and loss of personal information. Will alert MD.
--- NOTE | 2024-09-18 09:41 | P.PNIM_ITS ---
Subjective Subjective Date of Service: 09/18/24 Review of Systems Follow up PNA more confused today than yesterday Physical Exam 2 Vital Signs: Vital Signs: Last Vital Signs Temp 96.8 F 09/18/24 07:14 Pulse 89 09/18/24 07:14 Resp 16 09/18/24 07:14 BP 131/68 09/18/24 07:14 Pulse Ox 94 09/18/24 07:14 O2 Del Method Nasal Cannula 09/18/24 07:14 O2 Flow Rate 2 09/18/24 07:14 Oxygen Flow Rate 4 09/16/24 09:26 BMI result Body Mass Index 19.7 Appearing in no acute distress lung sounds are clear to auscultation heart regular rate rhythm, clear S1, S2 positive bowel sounds, abdomen is soft, nontender neuro patient is alert x3, no focal deficits Objective Data Active Medications Acetaminophen (Acetaminophen Supp 650 Mg Supp.Rect) 650 mg [place] Q6H PRN PRN Reason: Fever Last Admin: 09/16/24 14:54 Dose: 650 mg Documented By: ALVA Albuterol Sulfate (Albuterol Sulfate 90 Mcg 8 Gm Inhaler) 2 puff INHALE DAILY PRN PRN Reason: shortness of breath or wheezing Amitriptyline HCl (Amitriptyline Hcl 25 Mg Tablet) 75 mg PO DAILY ENE Apixaban (Apixaban 5 Mg Tablet) 5 mg PO BID ENE Atorvastatin Calcium (Atorvastatin Calcium 10 Mg Tablet) 10 mg PO DAILY ENE Bupropion HCl (Bupropion Hcl Xl 150 Mg Tab.Er.24h) 150 mg PO QAM ENE Calcium Carbonate (Calcium Carbonate 750 Mg Tab.Chew) 750 mg PO Q4H PRN PRN Reason: Heartburn Ceftriaxone Sodium (Ceftriaxone Sodium 1 Gm Vial) 1 gm IVPUSH Q24H [facility] Last Admin: 09/18/24 08:19 Dose: 1 gm Documented By: BRIAN Clonazepam (Clonazepam 0.5 Mg Tablet) 0.5 mg PO TID PRN PRN Reason: anxiety Enoxaparin Sodium (Enoxaparin Sodium 60 Mg/0.6 Ml Syringe) 50 mg SUBCUT Q12H [facility] Last Admin: 09/18/24 05:54 Dose: 50 mg Documented By: HUNTER Gabapentin (Gabapentin 400 Mg Capsule) 400 mg PO TID ENE Glucose (Glucose Gel 15 Gm Gel..Gram.) 15 gm PO Q15M PRN; Protocol PRN Reason: per Hypoglycemia Standing Ord. Dextrose (D10) 250 mls @ 750 mls/hr IV Q15M PRN PRN Reason: per Hypoglycemia Standing Ord. Last Infusion: 09/16/24 11:38 Dose: Infused Documented By: ALVA Vancomycin HCl 1,000 mg/ (Sodium Chloride) 270 mls @ 270 mls/hr IV Q24H [facility] Last Infusion: 09/17/24 18:12 Dose: Infused Documented By: BRIAN Dextrose (D10) 250 mls @ 750 mls/hr IV Q15M PRN; Protocol PRN Reason: per Hypoglycemia Standing Ord. Insulin Human Lispro (Insulin Lispro 100 Unit/Ml 3 Ml Vial) [address]; Protocol Last Admin: 09/18/24 08:19 Dose: Not Given Documented By: BRIAN Non-Admin Reason: No Insulin Coverage Levothyroxine Sodium (Levothyroxine Sodium 25 Mcg Tablet) 25 mcg PO DAILY@0600 [facility] Magnesium Hydroxide (Milk Of Magnesia 30 Ml Oral.Susp) 30 ml PO DAILY PRN PRN Reason: Constipation Melatonin (Melatonin 3 Mg Tablet) 6 mg PO BEDTIME PRN PRN Reason: Insomnia Non-Formulary Medication (Pantoprazole) 40 mg PO DAILY@0630 [facility] Non-Formulary Medication (Nifedipine) 30 mg PO DAILY [facility] Pharmacy Consult (Consult Rx Vancomycin Dosing) 1 each MISCELLANE DAILY PRN PRN Reason: Consult order Sodium Chloride (0.9 % Sodium Chloride Flush 3 Ml Syringe) [facility] Last Admin: 09/18/24 08:19 Dose: Not Given Documented By: BRIAN Non-Admin Reason: IV Running Tamsulosin HCl (Tamsulosin Hcl 0.4 Mg Capsule) 0.4 mg PO DAILY [facility] Last Admin: 09/18/24 08:19 Dose: 0.4 mg Documented By: BRIAN Labs 09/18/24 10:02 09/18/24 10:02 Labs: Laboratory Results - last 24 hr 09/17/24 09/17/24 09/17/24 09:59 12:00 16:53 Estim Creat Clear Calc Estimated GFR POC Glucose 98 132 H 76 12/17/24 12/18/24 12/18/24 20:11 05:35 07:11 Estim Creat Clear Calc 89.3 Estimated GFR > 60 POC Glucose 161 H 114 Microbiology Microbiology Results: Microbiology 09/16/24 09:47 Blood Culture - Preliminary Blood - Venous No growth after 24 hours. 09/16/24 09:44 Blood Culture - Preliminary Blood - Venous No growth after 24 hours. Assessment and Plan (1) Pneumonia: Status: Acute Plan 69 yo F with metastatic renal cell ca, copd on chronic 2L O2, PE on eliquis and multiple others who presents with confusion and found to have increasing oxygen requirements and work up consistent with multifocal pneumonia leading to sepsis. Acute toxic/metabolic encephalopathy. worse today typically AOx3 (although per family starting to exhibit signs of memory loss /dementia at home) initially due to DIEUDONNE + hypoglycemia mental health meds restarted this morning Severe Sepsis secondary to multifocal pneumonia. Sepsis resolved Meets sepsis criteria based on tachycardia/leukocytosis; severe features including elevated lactate and DIEUDONNE risk factors include COPD and chronic resp failure + metastatic renal cell Ca being actively treated given rocephin in the ED, added vancomcyin f/u cultures CT chest given underlying known metastatic disease DIEUDONNE. Resolved baseline SCr 0.7; nearly doubled to 1.3 due to #1 and poor oral intake follow bmp Acute on chronic resp failure with hypoxia. Resolved secondary to pneumonia 4a. acute resp failure with hypercarbia with retension noted on VBG, acutely worsened with desaturation below 88% on her baseline 2L no nbeed for bipap as VBG improved continue O2 with goal o2 of 92%, on 2 lnc at home Hypoglycemia. resolved non-diabetic due to poor oral intake s/p D5NS diet started HypoNa likely hypovolemia Mental health continue home medications now that patient is more awake History of metastatic renal cell ca on q3week infusion + oral meds outpatient follow up Full Code (confirmed with family) DVT pptx - eliquis Quality Stroke Does the patient have a stroke diagnosis?: No VTE Prior VTE?: No VTE Risk Level:: Medical - moderate - high VTE Device Contraindication: N/A - Device Ordered VTE Drug Contraindication: N/A - Med Ordered
--- NOTE | 2024-09-18 10:04 | MHC.SL.SWA ---
Addendum entered and electronically signed by EZEKIEL Cunningham 09/18/24 10:04: Late entry for date of evaluation, 09/17/24 Original Note: Speech Pathologist Impression: Risk of Aspiration Due to: Neurological Condition Dysphasia Diet Status: Recommend patient continue on Ground Mechanical (NDD2) with thin liquids, pills whole with liquid Liquid Consistency and Strategies for Safe Swallow: Liquid Intake Recommendation: Thin Liquid Intake Strategies: Unrestricted Solid Food Consistency: Dietary Recommendations: Grnd/Mech Altered (NDD2) Additional Modifications to Solid Foods: CINDER CRANE OPERATOR recommending Ground/Mech Altered Solids (NDD2) and Thin Liquids. Meds Crushed or Whole in Puree, as tolerated. She requires 1:1 Assistance at this time. She can be encourage to self-feed under supervision if mental status improves. Her primary barrier to nutrition at this time is her ability to access food due to suspected underlying dementia exacerbated by acute UTI. Oral Medication Intake: Whole with Puree Please contact the pharmacy regarding appropriate crushable or liquid drug formulations that are available whenever modified delivery is recommended. Compensatory Strategies and Precautions to be Taken for Safe Swallow: Sitting Upright (90 deg) Liquids from Straw Small Bites and Sips Alternate Liquids/Solids Oral Check Avoid Specific Foods Supervision While Eating and Drinking for Safe Swallow: Total Assistance (1:1) Foods to Avoid: Solids requiring mastication. Swallowing Recommended Treatments: Compens. Strategy Educat. Recommendation for Speech: Outpatient Speech Therapy Comment: CINDER CRANE OPERATOR recommending Ground/Mech Altered Solids (NDD2) and Thin Liquids. Meds Crushed or Whole in Puree, as tolerated. She requires 1:1 Assistance at this time. She can be encourage to self-feed under supervision if mental status improves. Her primary barrier to nutrition at this time is her ability to access food due to suspected underlying dementia exacerbated by acute UTI. Frequency/Duration: Daily Date Range for Service Req: Admission Timeline to reassess: PRN Ux Engineer Clinican/Clinical Fellow: No Supervisory Statement: I have reviewed and agree with the student/clinical fellow's documentation: N/A Speech Language Pathologist: Norberto Fang M.A., [facility]-CINDER CRANE OPERATOR
[2024-09-18 10:10] LABS: Hemoglobin 10.4 g/dl (12.0-16.0); Mean Corpuscular HGB Conc 33.5 g/dl (31.0-35.0); Mean Corpuscular Hemoglobin 28.7 pg (27.0-33.0); Mean Corpuscular Volume 85.6 fL (80.0-98.0); Platelet Count 180 X10*3/uL (160-400); Red Blood Count 3.62 X10*6/uL (4.20-5.50); White Blood Count 4.1 X10*3/uL (4.8-10.8)
[2024-09-18 10:21] LABS: Anion Gap 8 (12-20); Blood Urea Nitrogen 4 mg/dL (9-16); Calcium 7.8 mg/dL (8.4-10.2); Carbon Dioxide 27 mmol/L (22-29); Chloride 101 mmol/L (96-108); Creatinine Clr Calc Pharmacy 87.4; Estimated Glomerular Filt Rate > 60; Glucose Random 139 mg/dL (60-115); Potassium 3.4 mmol/L (3.3-5.1); Sodium 133 mmol/L (135-145)
[2024-09-18 11:20] LABS: Glucose, Whole Blood 113 mg/dL (60-115)
[2024-09-18] MEDS: buPROPion HCl XL 150 MG TAB.ER.24H PO (11:23)
[2024-09-18] MEDS: Apixaban 5 MG TABLET PO (11:24)
[2024-09-18] MEDS: NIFEdipine ER 30 MG TAB.ER.24 PO (11:24)
[2024-09-18] MEDS: Gabapentin 400 MG CAPSULE PO ×3 (11:28→21:06)
[2024-09-18] MEDS: Amitriptyline HCl 25 MG TABLET 75 MG PO (11:41)
--- NOTE | 2024-09-18 12:08 | MHC.SL.SWA ---
Speech Pathologist Impression: Adequate oropharyngeal coordination, cognitive deficits interfere with orientation to PO intake Risk of Aspiration Due to: Neurological Condition Dysphasia Diet Status: Recommend patient continue on Ground Mechanical (NDD2) with thin liquids, pills whole with liquid Liquid Consistency and Strategies for Safe Swallow: Liquid Intake Recommendation: Thin Liquid Intake Strategies: Unrestricted Solid Food Consistency: Dietary Recommendations: Grnd/Mech Altered (NDD2) Additional Modifications to Solid Foods: HIGH LIFT OPERATOR recommending Ground/Mech Altered Solids (NDD2) and Thin Liquids. Meds Crushed in Puree, as tolerated. She requires 1:1 Assistance, consistent cues to orient to task, pt able to self-feed under supervision. Primary barrier to nutrition is her ability to access food in presence of suspected underlying dementia exacerbated by acute UTI. Oral Medication Intake: Crushed with Puree Please contact the pharmacy regarding appropriate crushable or liquid drug formulations that are available whenever modified delivery is recommended. Compensatory Strategies and Precautions to be Taken for Safe Swallow: Sitting Upright (90 deg) Liquids from Straw Small Bites and Sips Alternate Liquids/Solids Oral Check Avoid Specific Foods Supervision While Eating and Drinking for Safe Swallow: Total Assistance (1:1) Foods to Avoid: Solids requiring mastication. Swallowing Recommended Treatments: Compens. Strategy Educat. Recommendation for Speech: Outpatient Speech Therapy Comment: Pt presents with adequate oropharyngeal swallow coordination but cognitive status is moderately to significantly impaired at this time. Pt needs 1:1 supervision and consistent cueing to attend to task of eating. HIGH LIFT OPERATOR intervention upon d/c TBD given nature of difficulties. Frequency/Duration: Daily Date Range for Service Req: Admission Timeline to reassess: PRN Hand Laster Clinican/Clinical Fellow: No Supervisory Statement: I have reviewed and agree with the student/clinical fellow's documentation: N/A Speech Language Pathologist: Marilyn Hawley M.S., CCC-HIGH LIFT OPERATOR
[2024-09-18] MEDS: vancomycin HCL 1,000 MG in 0.9 % Sodium Chloride 250 ML 270 MG IV (15:19)
[2024-09-18 16:15] LABS: Glucose, Whole Blood 83 mg/dL (60-115)
[2024-09-18 20:40] LABS: Glucose, Whole Blood 124 mg/dL (60-115)
[2024-09-18] MEDS: Dextrose 5 % and 0.9 % NaCl 1,000 ML 100 ML IVCONT (21:07)
[2024-09-19] VITALS (8 sets, daily range): BP systolic 104–139; BP diastolic 59–68; PULSE 81–96; RESP 16–20; TEMP 36.1–37.1; O2SAT 94–97
--- NOTE | 2024-09-19 01:12 | PC.NURSE ---
Continuing with D5NS since patients PO is very poor. Blood glucose stable at bedtime 124. Patient is very drowsy, sleeping , did not sleep for past couple of days. Easily arousable to touch. Not able to void on own, bladder scanned for over 1200. Dr Martinez notified off all. FC placed per order. Draining freely clear pale yellow urine.
[2024-09-19 01:31] LABS: Glucose, Whole Blood 123 mg/dL (60-115)
[2024-09-19] MEDS: Omeprazole 20 MG CAPSULE.DR PO (05:47)
[2024-09-19] MEDS: Levothyroxine Sodium 25 MCG TABLET PO (05:47)
[2024-09-19 06:45] LABS: Creatinine Clr Calc Pharmacy 95.2; Estimated Glomerular Filt Rate > 60
[2024-09-19] MEDS: Tamsulosin HCL 0.4 MG CAPSULE PO (07:34)
[2024-09-19] MEDS: Atorvastatin Calcium 10 MG TABLET PO (07:34)
[2024-09-19] MEDS: Amitriptyline HCl 25 MG TABLET 75 MG PO (07:34)
[2024-09-19] MEDS: Gabapentin 400 MG CAPSULE PO ×3 (07:35→21:14)
[2024-09-19] MEDS: buPROPion HCl XL 150 MG TAB.ER.24H PO (07:35)
[2024-09-19] MEDS: NIFEdipine ER 30 MG TAB.ER.24 PO (07:35)
[2024-09-19 07:38] LABS: Glucose, Whole Blood 148 mg/dL (60-115)
[2024-09-19] MEDS: Dextrose 5 % and 0.9 % NaCl 1,000 ML 100 ML IVCONT (07:46)
[2024-09-19] MEDS: 0.9 % Sodium Chloride Flush 3 ML SYRINGE IVFLUSH ×3 (07:48→21:14)
[2024-09-19 07:52] LABS: Anion Gap 11 (12-20)
[2024-09-19 07:57] LABS: Blood Urea Nitrogen < 3 mg/dL (9-16); Calcium 8.4 mg/dL (8.4-10.2); Carbon Dioxide 26 mmol/L (22-29); Chloride 102 mmol/L (96-108); Glucose Random 113 mg/dL (60-115); Potassium 3.2 mmol/L (3.3-5.1); Sodium 136 mmol/L (135-145)
[2024-09-19] MEDS: Apixaban 5 MG TABLET PO ×2 (09:04→21:14)
[2024-09-19] MEDS: cefTRIAXone sodium 1 GM VIAL IVPUSH (09:04)
[2024-09-19 11:23] LABS: Glucose, Whole Blood 110 mg/dL (60-115)
[2024-09-19] MEDS: Potassium Chloride Packet 20 MEQ PACKET 40 MEQ PO (11:46)
--- NOTE | 2024-09-19 11:51 | PC.NURSE ---
Medicine bottle found on patient's lap labeled Oxycodone with patient's name on the bottle, 1 pill inside the bottle, Patient stated it was her prescription. Provider notified, medicine to be taken to pharmacy for storage.
[2024-09-19 13:43] LABS: Vancomycin Random 5.7 mcg/mL (15-20)
--- NOTE | 2024-09-19 13:53 | HE.PHANOTE ---
RE: VANCO DOSING Trough came back as 5.7 mg/L. Patient's renal function is improving so dose is increased to 750 mg q8h starting @1400 09/19/24. Next trough is scheduled for 09/20/24 @1200.
[2024-09-19] MEDS: vancomycin HCL 750 MG in 0.9 % Sodium Chloride 250 ML 265 MG IV (14:36)
[2024-09-19] MEDS: Doxycycline Hyclate 100 MG in 0.9 % Sodium Chloride 250 ML 166.67 MG IV (15:14)
--- NOTE | 2024-09-19 16:22 | P.PNIM_ITS ---
Subjective Subjective Date of Service: 09/19/24 Interval History: seen and examined this morning follow up for pneumonia was confused yesterday; appears to be improving awake, alert, no specific complaints; caballero placed overnight Review of Systems Review of Systems: Yes all other systems are reviewed and are negative Constitutional Constitutional: Denies chills and Denies fever(s) Physical Exam 2 Vital Signs: Vital Signs: Last Vital Signs Temp 97.5 F 09/19/24 15:11 Pulse 95 09/19/24 15:11 Resp 18 09/19/24 15:11 BP 123/67 09/19/24 15:11 Pulse Ox 95 09/19/24 15:11 O2 Del Method Nasal Cannula 09/19/24 15:11 O2 Flow Rate 1 09/19/24 15:11 Oxygen Flow Rate 4 09/16/24 09:26 BMI result Body Mass Index 19.7 Const: General: cooperative, comfortable, alert and awake Nutritional Appearance: thin Orientation/consciousness: oriented to person and oriented to place Resp: Effort & Inspection: normal respiratory effort, able to speak in complete sentences, no respiratory distress and no use of accessory muscles A uscultation: clear to auscultation bilaterally Cardio: Rate: regular rate GI: Inspection: No distended Palpation (GI): Soft to palpation and nontender Neuro: General: oriented to person and oriented to place Objective Data Active Medications Acetaminophen (Acetaminophen Supp 650 Mg Supp.Rect) 650 mg IN Q6H PRN PRN Reason: Fever Last Admin: 09/16/24 14:54 Dose: 650 mg Documented By: ALVA Albuterol Sulfate (Albuterol Sulfate 90 Mcg 8 Gm Inhaler) 2 puff INHALE DAILY PRN PRN Reason: shortness of breath or wheezing Amitriptyline HCl (Amitriptyline Hcl 25 Mg Tablet) 75 mg PO DAILY [facility] Last Admin: 09/19/24 07:34 Dose: 75 mg Documented By: MARTHA Apixaban (Apixaban 5 Mg Tablet) 5 mg PO BID [facility] Last Admin: 09/19/24 09:04 Dose: 5 mg Documented By: MARTHA Atorvastatin Calcium (Atorvastatin Calcium 10 Mg Tablet) 10 mg PO DAILY [facility] Last Admin: 09/19/24 07:34 Dose: 10 mg Documented By: MARTHA Bupropion HCl (Bupropion Hcl Xl 150 Mg Tab.Er.24h) 150 mg PO DAILY [facility] Last Admin: 09/19/24 07:35 Dose: 150 mg Documented By: MARTHA Calcium Carbonate (Calcium Carbonate 750 Mg Tab.Chew) 750 mg PO Q4H PRN PRN Reason: Heartburn Ceftriaxone Sodium (Ceftriaxone Sodium 1 Gm Vial) 1 gm IVPUSH Q24H [facility] Last Admin: 09/19/24 09:04 Dose: 1 gm Documented By: MARTHA Clonazepam (Clonazepam 0.5 Mg Tablet) 0.5 mg PO TID PRN PRN Reason: anxiety Gabapentin (Gabapentin 400 Mg Capsule) 400 mg PO TID [facility] Last Admin: 09/19/24 14:36 Dose: 400 mg Documented By: MARTHA Glucose (Glucose Gel 15 Gm Gel..Gram.) 15 gm PO Q15M PRN; Protocol PRN Reason: per Hypoglycemia Standing Ord. Dextrose (D10) 250 mls @ 750 mls/hr IV Q15M PRN PRN Reason: per Hypoglycemia Standing Ord. Last Infusion: 09/16/24 11:38 Dose: Infused Documented By: ALVA Dextrose (D10) 250 mls @ 750 mls/hr IV Q15M PRN; Protocol PRN Reason: per Hypoglycemia Standing Ord. Dextrose/Sodium Chloride (D5ns) 1,000 mls @ 100 mls/hr IVCONT .Q10H [facility] Last Infusion: 09/19/24 10:57 Dose: 0 mls/hr Documented By: MARTHA Doxycycline Hyclate 100 mg/ (Sodium Chloride) 250 mls @ 166.67 mls/hr IV Q12H [facility] Last Admin: 09/19/24 15:14 Dose: 166.67 mls/hr Documented By: MARTHA Insulin Human Lispro (Insulin Lispro 100 Unit/Ml 3 Ml Vial) 0 unit SUBCUT QIDACHS [facility]; Protocol Last Admin: 09/19/24 11:40 Dose: Not Given Documented By: MARTHA Non-Admin Reason: No Insulin Coverage Levothyroxine Sodium (Levothyroxine Sodium 25 Mcg Tablet) 25 mcg PO DAILY@0600 [facility] Last Admin: 09/19/24 05:47 Dose: 25 mcg Documented By: HUNTER Magnesium Hydroxide (Milk Of Magnesia 30 Ml Oral.Susp) 30 ml PO DAILY PRN PRN Reason: Constipation Melatonin (Melatonin 3 Mg Tablet) 6 mg PO BEDTIME PRN PRN Reason: Insomnia Nifedipine (Nifedipine Er 30 Mg Tab.Er.24) 30 mg PO DAILY [facility] Last Admin: 09/19/24 07:35 Dose: 30 mg Documented By: MARTHA Omeprazole (Omeprazole 20 Mg Capsule.) 20 mg PO DAILY@0630 [facility] Last Admin: 09/19/24 05:47 Dose: 20 mg Documented By: HUNTER Sodium Chloride (0.9 % Sodium Chloride Flush 3 Ml Syringe) 3 ml IVFLUSH QSHIFT [facility] Last Admin: 09/19/24 15:18 Dose: 3 ml Documented By: MARTHA Tamsulosin HCl (Tamsulosin Hcl 0.4 Mg Capsule) 0.4 mg PO DAILY [facility] Last Admin: 09/19/24 07:34 Dose: 0.4 mg Documented By: MARTHA Labs 09/18/24 10:02 09/19/24 05:26 Labs: Laboratory Results - last 24 hr 09/18/24 09/19/24 09/19/24 19:11 01:26 05:26 Anion Gap 11 L Estim Creat Clear Calc 95.2 Estimated GFR > 60 POC Glucose 124 H 123 H Random Glucose 113 Calcium 8.4 D Random Vancomycin 09/19/24 09/19/24 09/19/24 07:31 11:18 13:19 Anion Gap Estim Creat Clear Calc Estimated GFR POC Glucose 148 H 110 Random Glucose Calcium Random Vancomycin 5.7 L Microbiology Microbiology Results: Microbiology 09/16/24 09:47 Blood Culture - Preliminary Blood - Venous No growth after 48 hours. 09/16/24 09:44 Blood Culture - Preliminary Blood - Venous No growth after 48 hours. Assessment and Plan (1) Pneumonia: Status: Acute Plan 69 yo F with metastatic renal cell ca, copd on chronic 2L O2, PE on eliquis and multiple others who presents with confusion and found to have increasing oxygen requirements and work up consistent with multifocal pneumonia leading to sepsis. Acute toxic/metabolic encephalopathy improving typically AOx3 (although per family starting to exhibit signs of memory loss /dementia at home) initially due to DIEUDONNE + hypoglycemia Severe Sepsis secondary to multifocal pneumonia. Sepsis resolved Meets sepsis criteria based on tachycardia/leukocytosis; severe features including elevated lactate and DIEUDONNE risk factors include COPD and chronic resp failure + metastatic renal cell Ca being actively treated given rocephin in the ED, added vancomcyin; will de-escalate vaco to iv doxy f/u cultures CT chest given underlying known metastatic disease hypokalemia k 3.2 will replace and follow DIEUDONNE. Resolved baseline SCr 0.7; nearly doubled to 1.3 due to #1 and poor oral intake follow bmp Acute on chronic resp failure with hypoxia. Resolved secondary to pneumonia 4a. acute resp failure with hypercarbia with retension noted on VBG, acutely worsened with desaturation below 88% on her baseline 2L no need for bipap as VBG improved continue O2 with goal o2 of 92%, on 2 lnc at home Hypoglycemia. resolved non-diabetic due to poor oral intake s/p D5NS diet started HypoNa likely hypovolemia Mental health continue home medications now that patient is more awake History of metastatic renal cell ca on q3week infusion + oral meds outpatient follow up Full Code (confirmed with family) DVT pptx - eliquis Quality Stroke Does the patient have a stroke diagnosis?: No VTE Prior VTE?: No VTE Risk Level:: Medical - moderate - high VTE Device Contraindication: N/A - Device Ordered VTE Drug Contraindication: N/A - Med Ordered
[2024-09-19 16:30] LABS: Glucose, Whole Blood 113 mg/dL (60-115)
--- NOTE | 2024-09-19 17:16 | MHC.SL.SWA ---
Speech Pathologist Impression: Risk of Aspiration Due to: Neurological Condition Dysphasia Diet Status: Due to her confusion, poor po intake, poor independence with feeding, recommend patient continue on ground/mechanical (NDD2) with thin liquids, pills crushed in puree. With supervision, patient can have baked goods brought from outside. Liquid Consistency and Strategies for Safe Swallow: Liquid Intake Recommendation: Thin Liquid Intake Strategies: Unrestricted Solid Food Consistency: Dietary Recommendations: Grnd/Mech Altered (NDD2) Additional Modifications to Solid Foods: INDUCTION MACHINE OPERATOR recommending Ground/Mech Altered Solids (NDD2) and Thin Liquids. Meds Crushed or Whole in Puree, as tolerated. She requires 1:1 Assistance at this time. She can be encourage to self-feed under supervision if mental status improves. Patient's reports that current mental status is significant change from baseline. Oral Medication Intake: Crushed with Puree Please contact the pharmacy regarding appropriate crushable or liquid drug formulations that are available whenever modified delivery is recommended. Compensatory Strategies and Precautions to be Taken for Safe Swallow: Sitting Upright (90 deg) Liquids from Cup Liquids from Straw Small Bites and Sips Alternate Liquids/Solids Supervision While Eating and Drinking for Safe Swallow: Total Assistance (1:1) Foods to Avoid: Solids requiring mastication. Swallowing Recommended Treatments: Compens. Strategy Educat. Recommendation for Speech: Outpatient Speech Therapy Comment: Patient seen during lunch to assess toleration/swallow. Patient's was present, had brought his a blueberry muffin to encourage her to eat. INDUCTION MACHINE OPERATOR explained current diet recommendation, but offered to observe patient toleration of muffin after patient had trials of food on lunch tray. Patient was highly confused throughout, needed full assistance with meal. On ground meat (pork) which was given with mashed potatoes, patient chewed at length, then removed pieces of meat from her mouth without swallowing. Patient's reasoning was that she did not like the taste. Patient was then given only potatoes and ground carrots on tray, which she consumed slowly, having a prolonged oral phase on each bite. Patient also confused by drink with straw, needed direct assistance holding can and bringing straw to mouth. Pieces of muffin were torn off and put in patients hand, which with prompting, she brought to mouth and chewed well and produced a timely swallow. Patient commented that she liked blueberries, but later stated they were gravy. With this level of assistance patient tolerated muffin well. However throughout patient was perseverating on white board in room, trying to read what was written, and confused when items were read to her. commented that this behavior was a significant change from baseline and queried if this was being assessed and what the reason might be for her confusion. was also concerned about a pending appointment with her oncologist next week. Recreation Facilities Supervisor recommended that bring concerns to the attention of her hospitalist. Due to her confusion, poor po intake, poor independence with feeding, recommend patient continue on ground/mechanical (NDD2) with thin liquids, pills crushed in puree. With supervision, patient can have baked goods brought from outside. Frequency/Duration: Daily Date Range for Service Req: Admission Timeline to reassess: PRN Manager Child Clinican/Clinical Fellow: No Supervisory Statement: I have reviewed and agree with the student/clinical fellow's documentation: N/A Speech Language Pathologist: Priscilla Cross M.A., CCC-INDUCTION MACHINE OPERATOR
[2024-09-19 20:55] LABS: Glucose, Whole Blood 95 mg/dL (60-115)
[2024-09-20] MEDS: Doxycycline Hyclate 100 MG in 0.9 % Sodium Chloride 250 ML 166.67 MG IV ×2 (02:36→14:43)
[2024-09-20 03:52] VITALS: BP 137/70; PULSE 88; RESP 16; TEMP 37.1; O2SAT 96
[2024-09-20] MEDS: Levothyroxine Sodium 25 MCG TABLET PO (05:44)
[2024-09-20] MEDS: Omeprazole 20 MG CAPSULE.DR PO (05:44)
[2024-09-20 07:25] VITALS: BP 135/70; PULSE 92; RESP 16; TEMP 37.4; O2SAT 92
[2024-09-20 07:30] LABS: Glucose, Whole Blood 91 mg/dL (60-115)
[2024-09-20] MEDS: cefTRIAXone sodium 1 GM VIAL IVPUSH (08:34)
[2024-09-20] MEDS: 0.9 % Sodium Chloride Flush 3 ML SYRINGE IVFLUSH ×2 (08:34→14:44)
[2024-09-20] MEDS: NIFEdipine ER 30 MG TAB.ER.24 PO (08:35)
[2024-09-20] MEDS: Gabapentin 400 MG CAPSULE PO ×2 (08:35→14:43)
[2024-09-20] MEDS: buPROPion HCl XL 150 MG TAB.ER.24H PO (08:35)
[2024-09-20] MEDS: Tamsulosin HCL 0.4 MG CAPSULE PO (08:35)
[2024-09-20] MEDS: Atorvastatin Calcium 10 MG TABLET PO (08:35)
[2024-09-20] MEDS: Apixaban 5 MG TABLET PO (08:35)
[2024-09-20] MEDS: Amitriptyline HCl 25 MG TABLET 75 MG PO (08:35)
[2024-09-20 09:15] LABS: Anion Gap 10 (12-20); Blood Urea Nitrogen < 3 mg/dL (9-16); Calcium 8.4 mg/dL (8.4-10.2); Carbon Dioxide 32 mmol/L (22-29); Chloride 100 mmol/L (96-108); Creatinine Clr Calc Pharmacy 80.8; Estimated Glomerular Filt Rate > 60; Glucose Random 87 mg/dL (60-115); Potassium 3.6 mmol/L (3.3-5.1); Sodium 138 mmol/L (135-145)
--- NOTE | 2024-09-20 11:12 | MHC.SL.SWA ---
Speech Pathologist Impression: Risk of Aspiration, Oral Phase Dysphagia Risk of Aspiration Due to: Neurological Condition Dysphasia Diet Status: No Change Liquid Consistency and Strategies for Safe Swallow: Liquid Intake Recommendation: Thin Liquid Intake Strategies: Small Sips Solid Food Consistency: Dietary Recommendations: Grnd/Mech Altered (NDD2) Additional Modifications to Solid Foods: UNDERCOLLAR BASTER recommending Ground/Mech Altered Solids (NDD2) and Thin Liquids. Meds Crushed or Whole in Puree, as tolerated. She requires 1:1 Assistance at this time. She can be encourage to self-feed under supervision if mental status improves. Her primary barrier to nutrition at this time is her ability to access food due to suspected underlying dementia exacerbated by acute UTI. Oral Medication Intake: Crushed with Puree Please contact the pharmacy regarding appropriate crushable or liquid drug formulations that are available whenever modified delivery is recommended. Compensatory Strategies and Precautions to be Taken for Safe Swallow: Sitting Upright (90 deg) Liquids from Cup Liquids from Straw Small Bites and Sips Alternate Liquids/Solids Supervision While Eating and Drinking for Safe Swallow: Total Assistance (1:1) Foods to Avoid: Solids requiring mastication. Swallowing Recommended Treatments: Compens. Strategy Educat. Recommendation for Speech: Outpatient Speech Therapy Comment: Pt presents with adequate oropharyngeal swallow coordination but cognitive status is moderately to significantly impaired at this time. Pt needs 1:1 supervision and consistent cueing to attend to task of eating. UNDERCOLLAR BASTER intervention upon d/c TBD given nature of difficulties. Frequency/Duration: Daily Date Range for Service Req: Admission Timeline to reassess: PRN Back Tender Pulp Drier Clinican/Clinical Fellow: No Supervisory Statement: I have reviewed and agree with the student/clinical fellow's documentation: N/A Speech Language Pathologist: Tracey Smith M.A., [facility]-UNDERCOLLAR BASTER
[2024-09-20 11:13] LABS: Glucose, Whole Blood 134 mg/dL (60-115)
[2024-09-20 11:33] VITALS: BP 135/70; PULSE 92; O2SAT 92
[2024-09-20 11:56] LABS: Venous Blood Gas Refer to POC result
[2024-09-20 11:59] LABS: VBG HCO3 38 mmol/L (22-26); VBG pCO2 59 mmHg; VBG pH 7.42 (7.32-7.43); VBG pO2 65 mmHg
--- NOTE | 2024-09-20 13:53 | MHC.CM.PN ---
met with pt and and her confirmed that they know physical therapies recommendation for 24 hr care and home pt explains that he and pts dgter live with her somthey feel home is a safe dc agreeable to hvns
--- NOTE | 2024-09-20 15:17 | P.F2F_ITS ---
Service Date Service Date: 09/20/24 Encounter Date of encounter: 09/20/24 Reasons for Services Signs and symptoms assessed: balance, safety, gait Reason for care home: medication management, medication treatment and teach disease management Reason for physical therapy: home safety and mobility, therapeutic exercises, gait/transfer training, assess need for DME, ADL training and energy conservation Reason for occupational therapy: home safety and mobility, therapeutic exercises, gait/transfer training, assess need for DME, ADL training and energy conservation Overseeing Care: Dominic Lin Homebound: Leaving the home is medically contraindicated at this time without the asist of a device and/or another person due th the listed conditions above and below. Reason homebound: unsteady gait / fall risk and cognitively impaired / unsafe Certification: Based on the above findings, I certify that this patient is confined to the home and needs intermittent care home care, physical therapy and/or speech therapy, or continues to need occupational therapy. The patient is under my care, and I have initiated the establishment of the plan of care. The patient will be followed by a physician who will periodically review the plan of care. Time Spent With Patient Time: Total time managing care of this patient today ____ minutes.
[2024-09-20 15:20] VITALS: BP 128/65; PULSE 96; RESP 18; TEMP 36.1; O2SAT 93
--- NOTE | 2024-09-20 15:30 | PM.DS ---
DS: Providers Provider Date of Service: 09/20/24 Date of admission: 09/16/24 13:58 Date of discharge: 09/20/24 Primary care physician: Dominic Lin MD DS: Diagnosis Discharge Diagnosis (1) Pneumonia: Status: Acute (2) Acute on chronic respiratory failure with hypoxia and hypercapnia: Status: Acute (3) Severe sepsis: Status: Acute (4) DIEUDONNE (acute kidney injury): Status: Acute (5) Metastatic renal cell carcinoma to lung: Status: Acute (6) Hypoglycemia: Status: Acute (7) Acute metabolic encephalopathy: Status: Acute DS: Summary Hospital Course Hospital Course: From the history and physical by the admitting hospitalist, Navi Juan MD, 09/16/24: The patient is a 69 year old female with past medical history of renal cell carcinoma with Mets to liver and lung (per history from family), chronic respiratory failure with hypoxia on 2 L at baseline, COPD, bronchiectasis, history of PE on Eliquis and probable undiagnosed dementia/cognitive impairment who presents to the emergency room with worsening confusion and poor oral intake. The patient was diagnosed with a urinary tract infection on the day prior to hospitalization and has received 1 dose of antibiotics at home. Workup in the ED reveals chest imaging with multifocal infiltrates. Her UA is not indicative of urinary tract infection. She is tachycardic and has an increased oxygen requirements, up to 5 L from baseline of 2 L. BMP shows acute kidney injury with a as serum creatinine of 1.3, baseline around 0.7-0.8. She was also found to be hypoglycemic in the 50s. Initially the patient was afebrile but now has spiked a temperature up to 102.3. The patient has been given some IV antibiotics as well as IV fluids. See continues to remain confused and now will be admitted for further workup and treatment. Patient is seen and examined in the ED around 13:45. She is somnolent but arousable to persistent verbal stimuli. She knows that she is at [facility] but otherwise is dose oriented. A telephone discussion with the patient's and daughter who are the healthcare proxies reveals that over the last several days she has had progressive confusion/?brain fog. She has intermittent cough but does not have appear to have respiratory distress. She was admitted to the medical-surgical unit. Hospital course by problem: severe sepsis due to pneumonia - She was treated with ceftriaxone and vancomycin 09/16-09/19, then ceftriaxone and doxycycline 09/19-09/20. Cultures negative. She was discharged on cefuroxime and doxycycline for 4 days. acute/chronic respiratory failure with hypoxia and hypercarbia - Oxygen was weaned to 1L by CT. As she chronically retains CO2, goal SaO2 is to be no more than 92%. DIEUDONNE - Due to sepsis and poor oral intake; resolved with IV fluid hydration. hypoglycemia - Due to poor oral intake; initially given D5NS then maintaned normoglycemia with taking diet. acute metabolic encephalopathy - Resolved with treatment of hypoglycemia and DIEUDONNE She was discharged home with VNA services and will follow up with [facility] as scheduled to continue her immunotherapy Time Attestation Discharge Coordination Time (in mins): 35 Quality: Safe Use of Opioids Does Pt have an Active Cancer Diagnosis on the Problem List?: No Quality: Stroke Does the patient have a stroke diagnosis?: No Physical Exam Vital Signs: Vital Signs: Last Vital Signs Temp 97.0 F 09/20/24 15:20 Pulse 96 09/20/24 15:20 Resp 18 09/20/24 15:20 BP 128/65 09/20/24 15:20 Pulse Ox 93 09/20/24 15:20 O2 Del Method Nasal Cannula 09/20/24 15:20 O2 Flow Rate 1 09/20/24 15:20 Oxygen Flow Rate 4 09/16/24 09:26 BMI result Body Mass Index 19.7 Gen: in no acute distress HEENT: sclera anicteric, moist mucus membranes Neck: supple Lungs: diminished Heart: regular rate and rhythm, no murmurs Abd: soft, non-tender, non-distended Ext: no edema Skin: warm/well-perfused Neuro: alert and oriented to self/place; prominent inattention Psych: appropriate affect DS: Data Data Completed and Pending Completed studies during hospitalization [Text1]: Laboratory Results WBC 4.1 X10*3/uL (4.8-10.8) L 09/18/24 10:02 RBC 3.62 X10*6/uL (4.20-5.50) L 09/18/24 10:02 Hgb 10.4 g/dl (12.0-16.0) L 09/18/24 10:02 Hct 31.0 % (37.0-47.0) L 09/18/24 10:02 MCV 85.6 fL (80.0-98.0) 09/18/24 10:02 MCH 28.7 pg (27.0-33.0) 09/18/24 10:02 MCHC 33.5 g/dl (31.0-35.0) 09/18/24 10:02 RDW 14.0 % (11.0-16.0) 09/18/24 10:02 Plt Count 180 X10*3/uL (160-400) 09/18/24 10:02 MPV 9.0 fL (9.4-12.3) L 09/18/24 10:02 Immature Gran % (Auto) 0.3 % (0.0-0.4) 09/17/24 05:17 Neut % (Auto) 82.5 % (45-73) H 09/17/24 05:17 Lymph % (Auto) 4.2 % (20-40) L 09/17/24 05:17 Hawkins % (Auto) 6.3 % (2-11) 09/17/24 05:17 Eos % (Auto) 6.1 % (0-4) H 09/17/24 05:17 Baso % (Auto) 0.6 % (0-2) 09/17/24 05:17 Lymph # (Auto) 0.3 X10*3/uL (1.2-4.9) L 09/17/24 05:17 Hawkins # (Auto) 0.4 X10*3/uL (0.1-1.2) 09/17/24 05:17 Eos # (Auto) 0.4 X10*3/uL (0.0-0.4) 09/17/24 05:17 Baso # (Auto) 0.0 X10*3/uL (0.0-0.2) 09/17/24 05:17 Abs Immat Gran (auto) 0.02 X10*3/uL (0.00-0.03) 09/17/24 05:17 Absolute Neuts (auto) 5.7 x10*3/uL (2.0-8.3) 09/17/24 05:17 Absolute Nucleated RBC 0.000 X10*3/uL (0.0-0.012) 09/18/24 10:02 Nucleated RBC % (auto) 0.0 /100WBC (0.0-0.2) 09/18/24 10:02 ESR 29 MM/HR (0-20) H 09/16/24 09:43 VBG pH 7.42 (7.32-7.43) 09/20/24 11:54 VBG pCO2 59 mmHg 09/20/24 11:54 VBG pO2 65 mmHg 09/20/24 11:54 VBG HCO3 38 mmol/L (22-26) H 09/20/24 11:54 VBG O2 Saturation 91.0 % 09/20/24 11:54 VBG Base Excess 12.0 mmol/L 09/20/24 11:54 Sodium 138 mmol/L (135-145) 09/20/24 08:15 Potassium 3.6 mmol/L (3.3-5.1) 09/20/24 08:15 Chloride 100 mmol/L (96-108) 09/20/24 08:15 Carbon Dioxide 32 mmol/L (22-29) H 09/20/24 08:15 Anion Gap 10 (12-20) L 09/20/24 08:15 BUN < 3 mg/dL (9-16) L 09/20/24 08:15 Creatinine 0.53 mg/dL (0.5-1.4) 09/20/24 08:15 Estim Creat Clear Calc 80.8 09/20/24 08:15 Estimated GFR > 60 09/20/24 08:15 POC Glucose 134 mg/dL (60-115) H 09/20/24 11:05 Random Glucose 87 mg/dL (60-115) 09/20/24 08:15 Lactic Acid 2.9 mmol/L (0.5-2.0) H* 09/16/24 09:44 Lactic Acid F/U @ 2Hr 2.7 mmol/L (0.5-2.0) H* 09/16/24 12:21 Lactic Acid F/U @ 4Hr 1.4 mmol/L (0.5-2.0) 09/16/24 14:49 Calcium 8.4 mg/dL (8.4-10.2) 09/20/24 08:15 Total Bilirubin 0.7 mg/dL (0.0-1.0) 09/16/24 09:43 AST 37 U/L (5-31) H 09/16/24 09:43 ALT 12 U/L (0-31) 09/16/24 09:43 Alkaline Phosphatase 99 U/L (39-117) 09/16/24 09:43 C-Reactive Protein 10.95 mg/dL (< or = 0.50) H 09/16/24 09:43 Total Protein 6.3 g/dL (6.5-8.0) L 09/16/24 09:43 Albumin 3.1 g/dL (3.5-5.0) L 09/16/24 09:43 Procalcitonin 0.80 ng/mL 09/20/24 08:15 Urine Color Dark Yellow 09/16/24 11:53 Urine Appearance Clear 09/16/24 11:53 Urine pH 5.5 (5.0-9.0) 09/16/24 11:53 Ur Specific Sentinel 1.020 (1.005-1.025) 09/16/24 11:53 Urine Protein 100 (2+) mg/dL (Neg-Trace) H 09/16/24 11:53 Urine Glucose (UA) Negative mg/dL (Negative) 09/16/24 11:53 Urine Ketones 15 mg/dL (Negative) 09/16/24 11:53 Urine Blood Negative (Negative) 09/16/24 11:53 Urine Nitrite Negative (Negative) 09/16/24 11:53 Ur Leukocyte Esterase Negative (Negative) 09/16/24 11:53 Urine RBC 0-2 /HPF (0-2) 09/16/24 11:53 Urine WBC 0-5 /HPF (0-5) 09/16/24 11:53 Ur Squamous Epith Cells 0-2 /HPF (0-2) 09/16/24 11:53 Urine Bacteria None Seen (None Seen) 09/16/24 11:53 Hyaline Casts 0-2 /LPF (0-2) 09/16/24 11:53 Random Vancomycin 5.7 mcg/mL (15-20) L 09/19/24 13:19 Impressions Chest X-Ray 09/16/24 09:28 IMPRESSION: Bilateral multifocal opacities, most notable in the [id number] right lung. This study was presented today to September 16, 2024 for interpretation. Stat results provided at this time as requested by referring provider. Electronically signed by: Elvia Arreola MD 09/16/2024 11:56 AM EST RP Chest CT 09/16/24 14:11 IMPRESSION: 1. Redemonstration of a cystic lesion in the right upper lobe with surrounding chain sutures. There are scattered regional reticular nodular airspace opacities in the remainder of the right lung. These are associated with architectural distortion of the parenchyma in the right upper lobe. Severity similar to the CAT scan of July 01, 2024. 2. Small vague groundglass opacity along the major fissure in the left upper lobe posteriorly. This is unchanged since prior CT July 01, 2024. 3. Small subpleural groundglass opacity in the medial dependent left lower lobe. This is new since CAT scan July 01, 2024. This measures about 5 mm. 4. Emphysematous changes of lungs. 5. New mediastinal lymph nodes since CAT scan July 01, 2024. These may be reactive. Fleischner guidelines were followed. Electronically signed by: De Green MD 09/16/2024 04:25 PM EST RP Discharge Plan Discharge Anticipated Discharge Date/Time: 09/20/24 15:02 Patient Disposition: Home Health Service Discharge Diagnosis: pneumonia Referrals: [facility] [Other] - 1 Week Dominic Lin MD [Primary Care Provider] - 1 Week Discharge Medications: New cefuroxime axetil 500 mg tablet 500 mg PO BID Qty: 8 0RF doxycycline monohydrate 100 mg tablet 100 mg PO BID Qty: 8 0RF Continued nifedipine 30 mg tablet extended release 30 mg PO DAILY Qty: 90 3RF atorvastatin 10 mg tablet 10 mg PO DAILY Qty: 90 2RF gabapentin 400 mg capsule 400 mg PO TID Qty: 270 1RF amitriptyline 75 mg tablet 75 mg PO DAILY Qty: 90 1RF cholecalciferol (vitamin D3) 50 mcg (2,000 unit) capsule 50 mcg PO DAILY 90 Days Qty: 90 0RF clonazepam 0.5 mg tablet 0.5 mg PO TID PRN (Reason: anxiety) 30 Days Qty: 90 0RF bupropion HCl 150 mg tablet extended release 24 hr 150 mg PO QAM Qty: 90 1RF pantoprazole 40 mg tablet,delayed release (DR/EC) 40 mg PO DAILY@0630 Lenvima 10 mg/day (10 mg x 1) Capsule 20 mg PO DAILY Qty: 60 4RF Rx Instructions: 04/23/24 - reduce daily dose to Lenvima 10 mg PO Daily Eliquis 5 mg Tablet 5 mg PO BID Qty: 60 6RF levothyroxine [Synthroid] 25 mcg tablet 25 mcg PO DAILY@0600 lidocaine HCl [Lidocaine Viscous] 2 % solution 1 appl MUCOUS MEMBRANE QID PRN (Reason: mouth sores) Magic Mouthwash Diphen/Lido/Antacid 1:1:1 240 mL suspension 10 ml PO QID PRN (Reason: sores) Rx Instructions: Lidocaine Viscous 2 % 80mL; diphenhydramine 12.5 mg/5 mL 80mL; aluminum-mag hydrox-simeth [id number]/5mL 80mL albuterol sulfate 90 mcg/actuation HFA aerosol inhaler 2 puff inhalation DAILY PRN (Reason: shortness of breath or wheezing) Discontinued nitrofurantoin monohyd/m-cryst 100 mg capsule 1 cap PO BID Rx Instructions: End date 09/21/24 Discharge Orders: Discharge Order (Routine); Ordered 09/20/24 Ordered By: Dayami Falk Diet: Advance to usual diet Activity on Discharge: As tolerated Stand Alone Forms: Patient Portal Discharge page Print Language: Kiswahili Care Plan Goals: recovery from pneumonia Health Concerns: pneumonia chronic respiratory failure Plan of Treatment: oxygen 1 L via nasal cannula, goal SaO2 no more than 92% take antibiotics for 4 days: - doxycycline monohydrate 100 mg twice daily - cefuroxime axetil 500 mg twice daily Follow up with your oncologist as scheduled Please follow up with your primary care doctor within 1 week. Return to the hospital if you experience recurrent or worsening symptoms. Assessment: See Discharge Summary.
--- NOTE | 2024-09-20 15:46 | MHC.CM.PN ---
DP: PT HAS BEEN MEDICALLY CLEARED FOR DC HOME WITH [facility]. FAMILY WILL TRANSPORT
[2024-09-20 16:09] LABS: Glucose, Whole Blood 112 mg/dL (60-115)
== END 2024-09-20 16:50 | disposition home health service (06) | DRG 871 ==
LOC: HO.ED 10:07 → HO.EDOVER 14:03 → HO.S3 19:24
PROVIDERS: Nurse Practitioner Acute Care; Physician Assistant Medical; Admitting Provider Family Medicine; Emergency Provider Emergency Medicine; PCP Internal Medicine; Visit Provider Family Medicine
DX: A41.9 Sepsis, unspecified organism (principal); G92.8 Other toxic encephalopathy; J18.9 Pneumonia, unspecified organism; J96.21 Acute and chronic respiratory failure with hypoxia; J96.22 Acute and chronic respiratory failure with hypercapnia; J47.0 Bronchiectasis with acute lower respiratory infection; E87.1 Hypo-osmolality and hyponatremia; C78.01 Secondary malignant neoplasm of right lung; C64.2 Malignant neoplasm of left kidney, except renal pelvis; C78.7 Secondary malignant neoplasm of liver and intrahepatic bile duct; E16.2 Hypoglycemia, unspecified; E86.1 Hypovolemia; F03.90 Unspecified dementia, unspecified severity, without behavioral disturbance, psychotic disturbance, mood disturbance, and anxiety; R65.20 Severe sepsis without septic shock; Z99.81 Dependence on supplemental oxygen; Z90.5 Acquired absence of kidney; Z87.891 Personal history of nicotine dependence; Z79.01 Long term (current) use of anticoagulants; Z79.890 Hormone replacement therapy; Z79.899 Other long term (current) drug therapy; Z85.528 Personal history of other malignant neoplasm of kidney
CPT/HCPCS: 36415; 71045; 71250; 80048; 80053; 80202; 81001; 81003; 82565; 82803; 82947; 83605; 84145; 85025; 85027; 85652; 86140; 87040; 92526; 92610; 97116; 97162; 97530; 99285; C1758; J0696; J1650; J3370; J3371

== ENCOUNTER → 2024-09-16 13:58 | Outpatient (BNV) | payer OTHER, SELFPAY | PROVIDERS: Admitting Provider Family Medicine; Emergency Provider Emergency Medicine; PCP Internal Medicine; Visit Provider Family Medicine | DX: J18.9 Pneumonia, unspecified organism (principal) | CPT/HCPCS: 99223; 99232; 99239; G0180 ==

== ENCOUNTER 2024-09-26 11:45 | Inpatient (IN) | payer OTHER, SELFPAY ==
[2024-09-26] VITALS (7 sets, daily range): BP systolic 138–168; BP diastolic 82–98; PULSE 92–104; RESP 14–18; TEMP 36.3–36.8; O2SAT 96–100; BMI 18.0
--- NOTE | ~2024-09-26 | XR_ITS ---
EXAMINATION: XR CHEST CLINICAL INFORMATION: sob COMPARISON: Chest x-ray 09/26/2024 TECHNIQUE: Frontal view of the chest was obtained. FINDINGS: The lungs are well-expanded and clear of acute pneumonic process. There are right parahilar chain link sutures from previous intervention with adjacent scar. It is stable. The heart size and pulmonary vascularity is normal. No gross bony abnormality seen. XR/XR chest 1V IMPRESSION: No acute process seen in the chest except postsurgical scar in the right parahilar region. Electronically signed by: Markel Ramirez MD 09/27/2024 05:42 PM EST
--- NOTE | ~2024-09-26 | CT_ITS ---
EXAMINATION: CT HEAD WITHOUT CONTRAST CLINICAL INFORMATION: Lethargy. Metastatic cancer. COMPARISON: CT scan of the head dated 07/01/2024 and 03/19/2024. TECHNIQUE: Contiguous axial imaging was performed from the skull base to vertex without intravenous administration of contrast. This CT examination was performed using dose optimization techniques as appropriate, variously including the following: *Automated exposure control *Adjustment of mA and/or kV according to patient size (this includes techniques or standardized protocols for targeted exams where dose is matched to indication/reason for exam; i.e. extremities or head) *Use of iterative reconstruction technique DLP: 615.11 mGy-cm FINDINGS: There is no evidence of acute intracranial hemorrhage or territorial infarction. No abnormal mass-effect or midline shift is seen. Mao to white matter differentiation is well preserved. No extra-axial fluid collections are identified. The ventricles and sulci are enlarged. There is mild periventricular and deep white matter low-attenuation seen, consistent with ischemic small vessel disease. Calcification of the vertebrobasilar arteries and carotid siphons bilaterally noted. The osseous structures and soft tissues are normal. The mastoid air cells and visualized portions of the paranasal sinuses are well-aerated. CT/CT head/brain wo IV con IMPRESSION: 1. No acute intracranial pathology. 2. Findings of mild ischemic small vessel disease. 3. Please note, subtle metastatic disease to the brain may not be apparent on noncontrast imaging. A clinical concern is high, further evaluation with MRI scan of the head with and without contrast is recommended. Electronically signed by: Gaby Norton MD 09/26/2024 02:23 PM [facility]
--- NOTE | ~2024-09-26 | XR_ITS ---
EXAMINATION: XR SHOULDER, RIGHT CLINICAL INFORMATION: pain and swelling COMPARISON: None available. TECHNIQUE: AP external rotation, Grashey, scapular Y, and axillary views of the right shoulder. FINDINGS: No fracture, dislocation, or suspicious focal bone lesion. Normal alignment. Subacromial space preserved. Humeral joint demonstrates mild degenerative arthritis with gross preservation of joint space. There is mild spurring of the AC joint. There is a neutral lateral acromion without undersurface spurring. No outlet stenosis. There is a small amount of calcification of the supraspinatus tendon abutting the footplate attachment, findings consistent with calcific tendinopathy. Soft tissues otherwise normal. Incidental note made of chain sutures in the right hilum. XR/XR shoulder RT min 2V IMPRESSION: 1. No acute fracture or dislocation. 2. Mild to moderate calcific tendinopathy of the supraspinatous tendon abutting the footplate attachment. 3. Mild degenerative arthropathy of the AC joint and glenohumeral joint. Electronically signed by: Davis De La Rosa MD 09/26/2024 12:38 PM [facility]
--- NOTE | ~2024-09-26 | XR_ITS ---
EXAMINATION: XR CHEST CLINICAL INFORMATION: recent pna COMPARISON: 09/16/2024 x-ray and CT chest. TECHNIQUE: AP portable view of the chest was obtained. FINDINGS: Cardiac, hilar, and mediastinal contours are stable. Postop changes right hilum with mild retraction and linear scarring seen anterior right upper lobe. Compared with the prior exam there appears to be improving aeration of the right apex, possibly reflecting improving pneumonia. A few patchy peribronchial subtle opacities remain in the right upper lobe and medial right lower lobe distribution. The left lung remains grossly clear radiographically. The cavitary lesion in the anterior segment right upper lobe is not well appreciated on this AP radiograph. There is a focal oval opacity overlying the left proximal humeral metadiaphysis, possibly artifact. This was not present previously. No correlate on the CT exam. This is consistent with artifact. No additional suspicious lytic or blastic bone lesions. XR/XR chest 1V IMPRESSION: 1. Improving aeration of the right apex when compared with the prior x-ray of 09/16/2024. 2. There are persistent mild peribronchial opacities in the right apex and medial right lower lobe, consistent with residual inflammatory/infectious airways disease. 3. Postop changes again noted right perihilar region with linear scarring. This appears stable. Electronically signed by: Davis De La Rosa MD 09/26/2024 01:34 PM [facility]
--- NOTE | ~2024-09-26 | CT_ITS ---
CLINICAL HISTORY: r o brain mets, ams, metastatic renal cell carcinoma CT head with contrast. COMPARISON: CT head dated 10/05/24 at 13:37 EST FINDINGS: The visualized paranasal sinuses are clear. Small amount of fluid present within the inferior aspect of the mastoid air cells. No calvarial fracture. No evidence for mass or mass effect. No intracranial hemorrhage or abnormal extra-axial fluid collection. The ventricles are proportional with the degree of mild global cerebral volume loss without evidence of hydrocephalus. Basilar cisterns are patent. There are periventricular areas of low attenuation compatible with mild white matter small vessel disease. Posterior fossa appears unremarkable. No areas of abnormal contrast enhancement. IMPRESSION: 1. No acute intracranial findings. No evidence of metastatic disease This document has been electronically signed by: Danny Cifuentes MD on 10/05/2024 14:13:50
--- NOTE | 2024-09-26 11:53 | ED.GENADULT ---
HPI - General Adult General Chief complaint: Weakness Stated complaint: FAM STS INCR LETHARGY/DECLINING,ON HOSPICE PER EMS Time Seen by Provider: 09/26/24 11:53 Source: EMS and RN notes reviewed Mode of arrival: EMS History of Present Illness ED Provider: Molly HPI narrative: Patient is a 69-year-old female with history of metastatic renal cell carcinoma with metastasis to lungs and liver, COPD on oxygen at baseline, GERD, recently treated for UTI and pneumonia/sepsis presenting via EMS with increased weakness and lethargy. Admitted here on 09/16 with discharge on 09/20. Patient states that she was able to ambulate at home after recent hospital discharge, but has become more weak over the past few days. Complains of right shoulder pain worse with movement. Unclear if patient is on hospice at this time, will attempt to reach out to family for clarification. MD complaint: weakness Onset (ago): day(s) Related Data Home Medications ?Medication ?Instructions ?Recorded ?Confirmed Magic Mouthwash 10 ml PO QID PRN sores 07/01/24 09/27/24 Diphen/Lido/Antacid 1:1:1 240 mL suspension levothyroxine 25 mcg tablet 25 mcg PO DAILY@0600 07/01/24 09/27/24 (Synthroid) lidocaine HCl 2 % mucosal solution 1 appl mucous membrane QID PRN 07/01/24 09/27/24 (Lidocaine Viscous) mouth sores clonazepam 0.5 mg tablet 1 mg PO BEDTIME anxiety 09/27/24 09/27/24 Previous Rx's ?Medication ?Instructions ?Recorded nifedipine 30 mg tablet,extended 30 mg PO DAILY #90 tabs 02/08/24 release lenvatinib 10 mg/day (10 mg x 1) 20 mg (2 x 10 mg/day (10 mg x 1)) 03/29/24 capsule (Lenvima) PO DAILY #60 caps atorvastatin 10 mg tablet 10 mg PO DAILY #90 tabs 04/03/24 gabapentin 400 mg capsule 400 mg PO TID #270 caps 04/23/24 amitriptyline 75 mg tablet 75 mg PO DAILY #90 tabs 05/01/24 apixaban 5 mg tablet (Eliquis) 5 mg PO BID #60 tabs 06/06/24 bupropion HCl 150 mg 24 hr tablet, 150 mg PO QAM #90 tabs 08/11/24 extended release cefuroxime axetil 500 mg tablet 500 mg PO BID #8 tabs 09/20/24 cholecalciferol (vitamin D3) 50 50 mcg PO DAILY 90 days #90 caps 09/27/24 mcg (2,000 unit) capsule Allergies Allergy/AdvReac Type Severity Reaction Status Date / Time Sulfa (Sulfonamide Allergy Severe ANAPHYLAXIS Verified 09/26/24 11:58 Antibiotics) Penicillins Allergy Intermediate RASH Verified 09/26/24 11:58 aspirin [ASA] AdvReac Severe severe Verified 09/26/24 11:58 stomach pain NSAIDS (Non-Steroidal AdvReac Severe severe Verified 09/26/24 11:58 Anti-Inflamma stomach pain codeine [Codeine] AdvReac Intermediate NAUSEA & Verified 09/26/24 11:58 VOMITING Review of Systems Review of Systems: As per HPI Yes all other systems are reviewed and are negative PMFSH Past Medical History Medical History Medication management Annual physical exam Weakness Dizziness Elevated C-reactive protein (CRP) Fever LANEY (obstructive sleep apnea) Cough Pleuritic chest pain COPD exacerbation Confusion Chest wall pain Bilateral knee pain Shoulder pain, left Left elbow pain Right foot pain COVID-19 Malignant neoplasm of left kidney Diminished libido Breast cancer screening by mammogram UTI (urinary tract infection) Colon cancer screening Easy bruising Chest pain Status post fall Supplemental oxygen dependent Lytic lesion of bone on x-ray Fluid in endometrial cavity Physical deconditioning Cancer cachexia Acquired hypothyroidism COPD (chronic obstructive pulmonary disease) Liver lesion Right lower lobe lung mass Post-operative nausea and vomiting Dry eye COVID-19 COPD (chronic obstructive pulmonary disease) Vitamin D deficiency Depression Primary osteoarthritis of knees, bilateral Pure hypercholesterolemia Palpitations Constipation Obstructive sleep apnea Anxiety Benign essential hypertension Oral thrush Lumbar degenerative disc disease Chronic allergic bronchitis GERD (gastroesophageal reflux disease) Surgical History Metastatic renal cell carcinoma to lung H/O kidney removal Hx of oral surgery Hx of tonsillectomy Pulmonary nodule 1 cm or greater in diameter History of nephrectomy Family History Family History Father Hypertension CVD (cardiovascular disease) Cancer Mother Hypertension Substance abuse Other Mental health problem Social History Social History Household Members: Spouse Household Members Other:: and brother and sister Housing: House Are you a primary animal care attendant to a significant other at home: No Alcohol intake: never Comment: COUNTS CORRECT Patient Tobacco Use Status: Former Tobacco user Tobacco use type: Cigarette Cigarette Packs Per Day: 1.5 Years Smoked: 30 Smoked in Last 30 Days: No e-Cigarette/Vaping Use: Currently Using Second Hand Smoke Exposure: No Use of substances other than those prescribed or required for medical reasons: No Advance Directives: Yes Advance Directives on File: Yes Advance Directives Date on File: 11/29/23 service: No Current occupational status: disabled Cognitive needs: No Hearing needs: No Vision needs: No Physical Exam ED Vital Signs: Vital Signs - 24 hr 09/26/24 23:40 09/27/24 06:00 09/27/24 07:56 Temperature 97.3 F 97.4 F Pulse Rate 104 H 104 H 104 H Respiratory Rate 14 14 Blood Pressure 142/82 H 130/83 130/83 Pulse Oximetry 96 97 97 Oxygen Delivery Method Nasal Cannula Nasal Cannula Oxygen Flow Rate 2 2 09/27/24 09:28 09/27/24 15:59 09/27/24 16:05 Temperature 97.7 F Pulse Rate 111 H 106 H 110 H Respiratory Rate 19 22 H 13 Blood Pressure 150/88 H 140/64 H 119/70 Pulse Oximetry 93 100 99 Oxygen Delivery Method Nasal Cannula Oxymask Non-Rebreather Mask Oxygen Flow Rate 9 15 09/27/24 16:10 Temperature Pulse Rate Respiratory Rate Blood Pressure Pulse Oximetry 100 Oxygen Delivery Method Oxymask Oxygen Flow Rate 3 BMI result Body Mass Index 18.0 Vital signs have been reviewed and appear to be correct. Blood pressure elevated. Heart rate slightly tachycardic. Respiratory rate normal. Temperature normal. Oxygen saturation normal. Const General: cooperative, alert, awake, ill appearing chronically and tired appearing Nutritional Appearance: thin Orientation/consciousness: patient oriented x3 HENMT Head: Yes normocephalic and Yes atraumatic Ears: hearing grossly normal bilaterally and external ears normal General nose exam: Normal external nose present Mouth: lip abnormal bilateral fissure and Abnormal oral and palatal mucosa present (dry) Throat: Yes posterior oropharynx normal and Yes uvula midline Eyes Pupils: Equal, round and reactive pupils present Neck Neck: Yes full ROM, Yes trachea midline and Yes supple Resp Effort & Inspection: normal respiratory effort Auscultation: clear to auscultation bilaterally Cardio Rate: tachycardic Rhythm: regular rhythm Heart sounds: S1 normal heart sound present and S2 normal heart sound present Peripheral pulses: Peripheral pulses 2+ throughout GI Palpation (GI): Soft to palpation and nontender General: Yes no CVA tenderness Back/Spine/Pelvis Back: no CVA tenderness Skin General skin exam: elasticity normal and turgor normal Neuro General: patient oriented x3, moves all extremities and no focal motor deficits Cranial nerves: Yes Equal, round and reactive pupils present Extrem General: Yes full ROM, Yes capillary refill normal, Yes no pedal edema and Yes no calf tenderness Right upper extremity: shoulder/upper arm Details: swelling Location: of the shoulder joint and normal ROM (pain with ROM) and Extremity exam: right hand Details: vascular exam Details: radial pulse present Course Reevaluation(s) Reevaluation #1: Physician Observation continued. No overnight events, however throughout the day patient has been declining in her health and mental status, no longer able to tolerate PO by mouth and failed swallow eval. Dr. Delacruz called and I spoke to her and believes that patient should be admitted for further management. I discussed case with Dr. Umanzor who accepts transfer of care. A rapid response was activated while patient was in the overflow unit, patient found to be more lethargic, dropped O2 saturation and was placed on oxymask. Hospitalist, Dr. Umanzor at bedside. Pt brought back to ED for more monitoring as we await for bed upstairs. POC 52, pt given 1 ampule of D50. Transfer of care initiated to the hospital service. Medications Administered Generic Name Dose Route Start Last Admin Trade Name Freq PRN Reason Stop Dose Admin Bupropion HCl 150 mg 09/27/24 14:45 09/27/24 16:13 Bupropion Hcl Xl 150 Mg Tab.Er.24h PO Not Given DAILY ENE Enoxaparin Sodium 40 mg 09/27/24 18:00 09/27/24 17:32 Enoxaparin Sodium 40 Mg/0.4 Ml Syringe SUBCUT 40 mg Q24H ENE Administration Gabapentin 400 mg 09/27/24 15:00 09/27/24 16:13 Gabapentin 400 Mg Capsule PO Not Given TID ENE Dextrose/Lactated Ringer's 1,000 mls @ 100 mls/hr 09/27/24 16:30 09/27/24 17:26 D5lr IVCONT 100 mls/hr .Q10H ENE Administration Morphine Sulfate 4 mg 09/27/24 16:46 09/27/24 17:26 Morphine Sulfate 4 Mg/Ml Cartridge IVPUSH 4 mg Q3H PRN Administration Pain, Moderate(Pain Scale 4-6) Protocol Discontinued Medications Generic Name Dose Route Start Last Admin Trade Name Laurle PRN Reason Stop Dose Admin Dextrose 25 gm 09/27/24 16:15 09/27/24 15:50 Dextrose 50 % 25 Gm/50 Ml Syringe IVPUSH 09/27/24 16:16 25 gm ONCE ONE Administration Sodium Chloride 1,000 mls @ 500 mls/hr 09/27/24 14:30 09/27/24 14:26 Ns IVCONT 09/27/24 16:29 500 mls/hr .Q2H ENE Administration Lidocaine/Diphenhydr/Alum/Mg/Simeth 10 ml 09/27/24 11:10 09/27/24 16:13 Mag&Al/Sim/Diphenhyd/Lidocaine 10 Ml Oral.Susp PO 09/27/24 11:11 Not Given ONCE ONE Protocol Medical Decision Making Medical Decision Making MDM Narrative: Patient is a 69-year-old female with history of metastatic renal cell carcinoma with metastasis to lungs and liver, COPD on oxygen at baseline, GERD, recently treated for UTI and pneumonia/sepsis presenting via EMS with increased weakness and lethargy. On exam patient is awake, A+Ox3, slightly tachycardic, VS otherwise WNL, afebrile, normal neurological exam without focal deficits, physical exam findings as above. Given reported symptoms and physical exam findings, initial differential includes but is not limited to electrolyte abnormality, viral illness, pneumonia, additional metastasis to shoulder, UTI. Labs unremarkable, improved from recent visit. Urinalysis is without evidence of infection. Viral serology negative. CT head notable for no acute intracranial pathology, no significant mass/lesion. No evidence of fracture or metastasis to right shoulder. Chest x-ray shows improving aeration of right apex. My interpretation is in agreement with the radiologist's interpretation. Case discussed with attending MD, Dr. Reid, who recommends consulting with Dr. Delacruz. Dr. Delacruz recommends PT eval for possible STR. Patient placed on physican observation pending PT/CM eval. Differential Diagnosis Differential Diagnoses: The differential diagnosis associated with the presentation includes As per [facility] Admission/Observation Consideration of admission/observation: Escalation of care including admission/observation considered Patient would have been admitted to the hospital had their work up had any findings where hospital admission was appropriate and their clinical presentation warranted hospital admission. Consult Healthcare Provider Management of the patient was discussed with: Outbound Supervisor (Dr. Delacruz ) Lab Data [facility] Lab Attestation statement: I reviewed the patient's lab results. As per [facility] 09/27/24 17:10 09/27/24 17:10 Labs: Lab Results 09/26/24 09/26/24 09/26/24 Range/Units 12:29 12:35 13:22 WBC 6.2 (4.8-10.8) X10*3/uL RBC 4.66 D (4.20-5.50) X10*6/uL Hgb 12.9 D (12.0-16.0) g/dl Hct 40.3 D (37.0-47.0) % MCV 86.5 (80.0-98.0) fL MCH 27.7 (27.0-33.0) pg MCHC 32.0 (31.0-35.0) g/dl RDW 13.9 (11.0-16.0) % Plt Count 271 D (160-400) X10*3/uL MPV 9.4 (9.4-12.3) fL Immature Gran % (Auto) 0.2 (0.0-0.4) % Neut % (Auto) 72.8 (45-73) % Lymph % (Auto) 11.1 L (20-40) % Canadian % (Auto) 6.4 (2-11) % Eos % (Auto) 8.5 H (0-4) % Baso % (Auto) 1.0 (0-2) % Lymph # (Auto) 0.7 L (1.2-4.9) X10*3/uL [place] # (Auto) 0.4 (0.1-1.2) X10*3/uL Eos # (Auto) 0.5 H (0.0-0.4) X10*3/uL Baso # (Auto) 0.1 (0.0-0.2) X10*3/uL Abs Immat Gran (auto) 0.01 (0.00-0.03) X10*3/uL Absolute Neuts (auto) 4.5 (2.0-8.3) x10*3/uL Absolute Nucleated RBC 0.000 (0.0-0.012) X10*3/uL Nucleated RBC % (auto) 0.0 (0.0-0.2) /100WBC VBG pH 7.39 (7.32-7.43) VBG pCO2 65 mmHg VBG pO2 66 mmHg VBG HCO3 40 H (22-26) mmol/L VBG O2 Saturation 89.0 % VBG Base Excess 12.4 mmol/L Sodium 133 L (135-145) mmol/L Potassium 4.5 D (3.3-5.1) mmol/L Chloride 95 L (96-108) mmol/L Carbon Dioxide 33 H (22-29) mmol/L Anion Gap 10 L (12-20) BUN 6 L (9-16) mg/dL Creatinine 0.60 (0.5-1.4) mg/dL Estim Creat Clear Calc 65.1 Estimated GFR > 60 POC Glucose (60-115) mg/dL Random Glucose 77 (60-115) mg/dL Lactic Acid 0.9 (0.5-2.0) mmol/L Calcium 9.2 D (8.4-10.2) mg/dL Magnesium 1.7 (1.6-2.6) mg/dL Total Bilirubin 0.4 (0.0-1.0) mg/dL AST 39 H (5-31) U/L ALT 12 (0-31) U/L Alkaline Phosphatase 96 (39-117) U/L C-Reactive Protein 2.52 H (< or = 0.50) mg/dL Total Protein 6.6 (6.5-8.0) g/dL Albumin 3.2 L (3.5-5.0) g/dL Procalcitonin 0.08 ng/mL Urine Color Urine Appearance Urine pH (5.0-9.0) Ur Specific [place] (1.005-1.025) Urine Protein (Neg-Trace) mg/dL Urine Glucose (UA) (Negative) mg/dL Urine Ketones (Negative) mg/dL Urine Blood (Negative) Urine Nitrite (Negative) Ur Leukocyte Esterase (Negative) Influenza Type A (PCR) NEGATIVE (Negative) Influenza Type B (PCR) NEGATIVE (Negative) RSV RNA Qual (PCR) NEGATIVE (Negative) SARS-CoV-2 RNA (RT-PCR) NEGATIVE (Negative) 09/26/24 09/27/24 Range/Units 15:58 15:46 WBC (4.8-10.8) X10*3/uL RBC (4.20-5.50) X10*6/uL Hgb (12.0-16.0) g/dl Hct (37.0-47.0) % MCV (80.0-98.0) fL MCH (27.0-33.0) pg MCHC (31.0-35.0) g/dl RDW (11.0-16.0) % Plt Count (160-400) X10*3/uL MPV (9.4-12.3) fL Immature Gran % (Auto) (0.0-0.4) % Neut % (Auto) (45-73) % Lymph % (Auto) (20-40) % Canadian % (Auto) (2-11) % Eos % (Auto) (0-4) % Baso % (Auto) (0-2) % Lymph # (Auto) (1.2-4.9) X10*3/uL Canadian # (Auto) (0.1-1.2) X10*3/uL Eos # (Auto) (0.0-0.4) X10*3/uL Baso # (Auto) (0.0-0.2) X10*3/uL Abs Immat Gran (auto) (0.00-0.03) X10*3/uL Absolute Neuts (auto) (2.0-8.3) x10*3/uL Absolute Nucleated RBC (0.0-0.012) X10*3/uL Nucleated RBC % (auto) (0.0-0.2) /100WBC VBG pH (7.32-7.43) VBG pCO2 mmHg VBG pO2 mmHg VBG HCO3 (22-26) mmol/L VBG O2 Saturation % VBG Base Excess mmol/L Sodium (135-145) mmol/L Potassium (3.3-5.1) mmol/L Chloride (96-108) mmol/L Carbon Dioxide (22-29) mmol/L Anion Gap (12-20) BUN (9-16) mg/dL Creatinine (0.5-1.4) mg/dL Estim Creat Clear Calc Estimated GFR POC Glucose 52 L* (60-115) mg/dL Random Glucose (60-115) mg/dL Lactic Acid (0.5-2.0) mmol/L Calcium (8.4-10.2) mg/dL Magnesium (1.6-2.6) mg/dL Total Bilirubin (0.0-1.0) mg/dL AST (5-31) U/L ALT (0-31) U/L Alkaline Phosphatase (39-117) U/L C-Reactive Protein (< or = 0.50) mg/dL Total Protein (6.5-8.0) g/dL Albumin (3.5-5.0) g/dL Procalcitonin ng/mL Urine Color Yellow Urine Appearance Clear Urine pH 7.0 (5.0-9.0) Ur Specific [place] 1.015 (1.005-1.025) Urine Protein Trace (Neg-Trace) mg/dL Urine Glucose (UA) Negative (Negative) mg/dL Urine Ketones Trace (Negative) mg/dL Urine Blood Negative (Negative) Urine Nitrite Negative (Negative) Ur Leukocyte Esterase Negative (Negative) Influenza Type A (PCR) (Negative) Influenza Type B (PCR) (Negative) RSV RNA Qual (PCR) (Negative) SARS-CoV-2 RNA (RT-PCR) (Negative) Independent Interpretation I performed an independent interpretation of an: Plain X-Ray and CT Scan Interpretation: CT head notable for no acute intracranial pathology, no significant mass/lesion. No evidence of fracture or metastasis to right shoulder. Chest x-ray shows improving aeration of right apex. Radiology Impression Discussion of test interpretation with radiology: I have reviewed the radiologist's reading. Radiologist Impression: XR/XR shoulder RT min 2V IMPRESSION: 1. No acute fracture or dislocation. 2. Mild to moderate calcific tendinopathy of the supraspinatous tendon abutting the footplate attachment. 3. Mild degenerative arthropathy of the AC joint and glenohumeral joint. XR/XR chest 1V IMPRESSION: 1. Improving aeration of the right apex when compared with the prior x-ray of 09/16/2024. 2. There are persistent mild peribronchial opacities in the right apex and medial right lower lobe, consistent with residual inflammatory/infectious airways disease. 3. Postop changes again noted right perihilar region with linear scarring. This appears stable. CT/CT head/brain wo IV con IMPRESSION: 1. No acute intracranial pathology. 2. Findings of mild ischemic small vessel disease. 3. Please note, subtle metastatic disease to the brain may not be apparent on noncontrast imaging. A clinical concern is high, further evaluation with MRI scan of the head with and without contrast is recommended. Independent Historian Clinical information obtained from an independent historian. History obtained from or confirmed by: Spouse External Record Review External record reviewed: Inpatient record, Office record and Outpatient record Discharge Plan Discharge Clinical Impression: Weakness Patient Disposition: Admitted As Inpatient Interventions: Admission Worksheet (ED) Last Done: 09/27/24 19:44
--- NOTE | 2024-09-26 12:29 | MHC.CM.ED ---
Received notification from Linda WEBER that patient is active with agency. Return referral made so agency can follow for d/c needs.
[2024-09-26 12:36] LABS: MANUAL DIFF FLAG NO
--- OUTSIDE RECORDS SUMMARY | 2024-09-26 12:37 | XMS_ITS | Continuity of Care Document ---
Author Organization [facility] [place] [facility] Address [address] [place] [address] Care Team Providers Care Salon Sales Consultant Name Role Phone HIM [facility] OTHER [facility] Primary Care Provider Assessment Encounter Date Assessment Date Assessment LastModified by Organization Details LastModified Time 09/15/2024 09/15/2024 I have reviewed and agree with the assessment and plan as documented by the hand tile maker. I provided real time medical direction for this encounter and was immediately available to provide additional phone based assistance as needed. History as noted by hand tile maker. Pt with history of RCC currently receiving [...] Appointments None recorded. Lab culture, urine 2023 [facility], [address], [place], [address], 20:09:14 urinalysis , dipstick 2023 [facility], [address] [place] [address], [phone], 13:09:33 Referral None recorded. Procedures None recorded. Surgeries None recorded. Imaging None recorded. Medication Orders Macrobid 100 mg capsule 2023 [id number], [address] [place], [address], 4 13:12:31 Macrobid 100 mg capsule 2023 024 [id number], [address] [place], [address], 13:12:33 Patient TargetsNo targets recorded. Patient InstructionsNo [...] Not available Not available Not available 07/30/2024 [id number] SNOMED Not Available [facility] - production [...] [degF] 14 /min 97 % 97 % 86497.1 2 g 160.02 cm 98 /min 136 [...] Diagnosis/Indication Diagnosis SNOMED-CT Code Diagnosis ICD10 Code [id number] Romeo Young MD Main - [facility] [address] [place] [id number] 09/15/2024 13:07:09 09/16/2024 11:45:45 Urinary symptoms 210653119 R39.9 Health Concerns Section Related Observation LastModified by Organization Detai ls LastModified Time None Recorded Concern Status LastModified by Organization Details LastModified Time None Recorded Payers Encounter Date Sequence Insurance Name Policy Number Policy Springer Covered Member ID Springer Member ID Guarantor Name 09/15/[address] [facility] - DOS ON OR AFTER 2022 - DUAL ELIGIBLE - RETIREMENT OPTIONS AND ONE CARE (MEDICARE REPLACEMENT/ADV ANTAGE - HMO) Elina Stewart [id number] Elina Stewart Notes Date Note Type Note Provider Name and Address Organization Details Recorded Time 09/15/2024 text/html This was a supervised home visit with hand tile maker Pool Lee. CRC Nurse Triage Notes (Deep [...] Altered mental statusPMH: COPD/Asthma, Cancer, HypertensionComments : Molding Engineer verified the patient's name//address and phone number. [...] emergency treatment if needed -Dinesh Berg RN [employer] Wheel Filler Organization Information for Pool Lee Legal Name: [employer]? ? Address: [address] [place] [id number], Medical Director: Driss Obrien [facility] No.: [id number] [employer] Wheel F[employer] POC Test Results from Pool Lee Urine Dipstick (13:03:43)Urine leukocytes: 70+ LEUUrine nitrites: - NITUrine urobilinogen: 2-3.5 UROUrine protein: 100++ PROUrine pH: 6.0 pHUrine blood: - BLOUrine specific gravity: 1.020 SGUrine ketones: 40++4.0 KETUrine bilirubin: 1+17 BILUrine glucose: - GLU .................... .................... .................... .................... .................... .................... .................... . Tanning Wheel Filler Note From Pool Lee: [facility] makes pt contact after being admitted [...] cancer. She consents to evaluation and tx today.[facility] obtains vitals signs and assesses pt. Nothing remarkable noted upon exam other than mild discomfort described as pressure when palpating lower abdomen. Pt is able to provide a clean catch of urine. [facility] obtains urine for culture and performs a urine dipstick test and uploads results. [facility] [place] [facility] [place] discusses the above findings. [facility] [place] pt to follow up w/ her doctor to go over the results of the culture in a few days. [facility] [place] [facility] to administer 1 tablet of nitrofurantoin PO for the pt and calls in a prescription to pt's preferred pharmacy. Pt and thank [facility] for coming.[facility] is clear. Report completed by YURY Lee [id number]. [facility] [place] Orders: culture, urine: Performed .................... .................... .................... .................... .................... .................... .................... . [facility] Consulted: Romeo Young .................... .................... .................... .................... .................... .................... .................... . Disposition: Fulfilled Romeo Young MD [address] [place] [address],[address], [place], [phone], [employer] [place], [facility] 09/15/2024 14:14:11 OBGyn Episode No OBEpisode recorded.
[2024-09-26 12:38] LABS: Basophils Absolute Auto 0.1 X10*3/uL (0.0-0.2); Eosinophils Absolute Auto 0.5 X10*3/uL (0.0-0.4); Eosinophils Percent Auto 8.5 % (0-4); Hematocrit 40.3 % (37.0-47.0); Hemoglobin 12.9 g/dl (12.0-16.0); Imm Gran Abs Auto 0.01 X10*3/uL (0.00-0.03); Imm Gran Pct Auto 0.2 % (0.0-0.4); Lymphocytes Absolute Auto 0.7 X10*3/uL (1.2-4.9); Lymphocytes Percent Auto 11.1 % (20-40); Mean Corpuscular Hemoglobin 27.7 pg (27.0-33.0); Mean Corpuscular Volume 86.5 fL (80.0-98.0); Mean Platelet Volume 9.4 fL (9.4-12.3); Monocytes Absolute Auto 0.4 X10*3/uL (0.1-1.2); Monocytes Percent Auto 6.4 % (2-11); Neutrophils Absolute Auto 4.5 x10*3/uL (2.0-8.3); Neutrophils Percent Auto 72.8 % (45-73); Platelet Count 271 X10*3/uL (160-400); Red Blood Count 4.66 X10*6/uL (4.20-5.50); Red Cell Distribution Width 13.9 % (11.0-16.0); White Blood Count 6.2 X10*3/uL (4.8-10.8)
[2024-09-26 12:41] LABS: VBG Base Excess 12.4 mmol/L; VBG HCO3 40 mmol/L (22-26); VBG pCO2 65 mmHg; VBG pH 7.39 (7.32-7.43); VBG pO2 66 mmHg
[2024-09-26 12:42] LABS: Venous Blood Gas Refer to POC result
[2024-09-26 12:58] LABS: Lactic Acid 0.9 mmol/L (0.5-2.0)
[2024-09-26 13:00] LABS: Alanine Aminotransferase 12 U/L (0-31); Albumin Level 3.2 g/dL (3.5-5.0); Alkaline Phosphatase 96 U/L (39-117); Anion Gap 10 (12-20); Aspartate Amino Transferase 39 U/L (5-31); Bilirubin Total 0.4 mg/dL (0.0-1.0); Blood Urea Nitrogen 6 mg/dL (9-16); Calcium 9.2 mg/dL (8.4-10.2); Carbon Dioxide 33 mmol/L (22-29); Chloride 95 mmol/L (96-108); Creatinine Clr Calc Pharmacy 65.1; Estimated Glomerular Filt Rate > 60; Glucose Random 77 mg/dL (60-115); Magnesium 1.7 mg/dL (1.6-2.6); Potassium 4.5 mmol/L (3.3-5.1); Sodium 133 mmol/L (135-145); Total Protein 6.6 g/dL (6.5-8.0)
[2024-09-26 13:15] LABS: Influenza A PCR NEGATIVE (Negative); Influenza B PCR NEGATIVE (Negative); Resp Syncy Virus RNA Qual PCR NEGATIVE (Negative); SARS COV2 PCR INHOUSE NEGATIVE (Negative)
[2024-09-26 13:30] LABS: C Reactive Protein 2.52 mg/dL (< or = 0.50)
[2024-09-26 14:07] LABS: Procalcitonin 0.08 ng/mL
[2024-09-26 16:08] LABS: Appearance Urine Clear; Color Urine Yellow; Glucose Urine UA Negative (Negative); Leukocyte Esterase Urine Negative (Negative); Nitrite Urine Negative (Negative); Specific Gravity - Urine 1.015 (1.005-1.025); Urine Blood Negative (Negative); Urine Ketones Trace mg/dL (Negative); Urine Protein Trace mg/dL (Neg-Trace)
--- NOTE | 2024-09-26 17:44 | PC.NURSE ---
Pt presents to ED via EMS from home, reports increased weakness for past week worsening. Has hx of stage 4 cancer, is on O2 at baseline 2L. Had recent hospitalization 1 month ago for PNA. Pt is alert and oriented but very lethargic and is sleeping frequently. Breathing even and unlabored, skin pale and dry. Pt reports generalized body pain with movement. NSR on bedside cardiac exercise physiologist.
--- NOTE | 2024-09-26 17:45 | PC.NURSE ---
Late entry: Attempted to have pt void urine on bedpan but pt is unable. Straight cath performed with output of 600 mL of yellow clear urine.
--- NOTE | 2024-09-26 18:07 | MHC.CM.ED ---
Addendum entered by Jerilyn Qureshi 09/26/24 20:20: CM spoke with daughter, Vanna (HCP #2) regarding family plan of care for her mother. Family has been caring for her and they plan on caring for her unless she medically needs admission to a custodial. CM explained that nursing homes provide care, but not medical care that would be provided in the hospital. Vanna aware that a PT consult has been placed. Pt was seen last week and PT recommended home with 24/hr care. According to Vanna, her mother was much better when she first came home, but has been weak, lethargic and unable to walk for a couple of days. They have help to care for her at home (3 adults). Vanna tells CM that they have had NOT had any end of life conversations with her mother. Vanna states her mother feels she will be cured of her cancer. Vanna states Dr. Delacruz has not had any conversations that she is aware of regarding end of life or hospice care. CM encouraged Vanna to call Dr. Delacruz with direct questions about her mother's prognosis. Vanna tells CM she wants to know. CM received a telephone call from patient's , Kwaku. CM spoke with Kwaku about plan of care for his . He tells CM they really haven't discussed much, but he knows she does not want to live in a custodial. Kwaku thinks if a custodial would help in the short term, then it would be allright. CM explained that if PT recommends home with 24/7 care, then his will not have PT at the custodial. They would provide basic care for his , not rehab. Pt uses no DME. Family helps patient with ambulation. She has a shower chair. The bedrooms are upstairs. There is a full and half bath. Pt has been able to shower and use bathroom with little assistance. Has oxygen at 4L from [employer]. Brain tells CM that his has had a big change in the past several days since her discharge from [facility] [place] on 09/20. She was ambulating with minimal assistance, eating and taking her meds. Now she is not ambulating, is lethargic and is not eating and they are having trouble having her take her meds./\ CM plan of care: PT evaluation. CM will speak with family in the morning regarding home or halfway care pending PT evaluation. Family to speak with Dr. Delacruz. Above conversations shared with provider. Original Note: Received consult from Berta CASTANO. Attempted to meet with patient, however she was sleeping. CM spoke with provider and reviewed medical record. Pt was recently hospitalized at [facility] [place] on 09/16-09/20 for pneumonia. Was seen by PT at that time which recommended 24/7 care. Family was agreeable to home with [facility]. Pt is active with [facility]. Pt has metastatic renal cancer with mets to liver and lungs. She is actively receiving chemotherapy with her next treatment next week with Dr. Delacruz. Pt is on continuous oxygen at 4L at home. Pt is NOT on hospice. Provider spoke with , who is unsure if is on hospice, Per provider, cannot care for his at this time. Provider spoke with Dr. Delacruz who verified that patient was not on hospice and had been doing okay. PT is pending. CM will speak with to attempt to clarify plan of care. Pt has [employer] insurance.
[2024-09-27] VITALS (8 sets, daily range): BP systolic 119–150; BP diastolic 64–88; PULSE 93–111; RESP 13–22; TEMP 36.3–37; O2SAT 93–100
--- NOTE | 2024-09-27 06:27 | PC.NURSE ---
pt slept comfortably throughout the night, breathing even and unlabored. call barnes w/in reach
--- NOTE | 2024-09-27 09:36 | P.CNHO_ITS ---
Subjective - Subjective Chief complaint: Consult for: Renal cell carcinoma. Generalized weakness. Patient: known to practice within the last 3 years Consult date: 09/27/24 Requesting Physician: Berta Barnes. Primary Care Provider: Dominic Lin MD Family Provider: Dominic Lin MD. Medical Summary: DIAGNOSIS: RENAL CELL CARCINOMA. GENERALIZED WEAKNESS. CURRENT THERAPY: On pembrolizumab and lenvatinib, started on 11/07. Received 15th cycle on 09/03. HPI - Consult Narrative Reason for consult: Consult for: Renal cell carcinoma. Narrative: Elina Stewart is a 69 year old lady, who presented to the ER with generalized weakness. 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 She presented via EMS with increased weakness and lethargy. She had previously been admitted here on 09/16 with discharge on 09/20. She states that she was able to ambulate at home after recent hospital discharge, but has become more weak over the past few days. She also complains of right shoulder pain worse with movement. HISTORY OF PRESENT ILLNESS: CT chest on 01/01/2019: At least 6 x 7 cm lesion exophytic to the lower pole of the left kidney worrisome for a mass. Imaging follow-up recommended. CT abdomen pelvis from 12/26/2019: Large left lower pole renal cell carcinoma. There is no tumor thrombus involvement in the left main renal vein. There are some small left para-aortic lymph nodes seen. Large venous collaterals noted around the left kidney. She underwent: Left laparoscopic hand assisted nephrectomy on 02/18/[address] Mendoza. 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 Data Synopsis - Kidney Procedure Radical nephrectomy Specimen laterality left Tumor size 8.0 x 8.0 x 7.5 cm Tumor focality Multifocal Histologic type Clear cell renal cell carcinoma Sarcomatoid features (%) 0% Rhabdoid features Not identified Histologic grade Grade 2 Tumor necrosis (%) 5-10% Tumor extension Renal sinus fat Margins Negative Adrenal gland Not present LVI Not definitively identified Regional lymph nodes: Number examined 0 Findings in nonneoplastic kidney None TNM pT3a Nx Towards the end of last year she had symptoms of recurrent bouts with bronchitis and pneumonia. CT with CHEST FROM 08/22 revealed: 1. Changes of centrilobular emphysema and multiple lung nodules bilaterally. 2. Scarring in the anterior mediastinum. 3. Coronary artery calcifications. PET-CT from 09/12/2023 revealed: 1. Bilateral enlarging lung nodules. The dominant approximately 1 cm nodules seen abutting the mediastinal pleura located along the medial central part of the right minor fissure shows mild tracer avidity with SUV max of 1.3. The second dominant left lower lobar subcentimeter nodule is not tracer avid however, could be false negative given its small size as well as its location and presence of significant motion artifact. Given the history of prior left renal malignancy, the findings are suspicious for evolving metastatic disease, and less likely to be synchronous lung primary. Tissue diagnosis is recommended for further clarification. 2. Incidental note is made of heterogeneous focal 5.6 x 4.6 cm hypodensity along the subcapsular aspect of the segment 7 of right lobe of the liver, seen only on the CT part of the study without any tracer avidity, for which a follow-up multiphasic pre and postcontrast MRI of the liver is recommended for further full detail evaluation. 3. Right upper lobar subpleural focal tracer avidity with SUV max of 2.8 may represent nonspecific pleural parenchymal abnormality versus chest wall including ribs lesion. Further differentiation cannot be made given the presence of significant motion and misregistration artifacts. On 10/06/23, a bronchoscopy, VATS right middle lobe wedge resection,pneumonolysis, intercostal nerve block with Exparel was performed by Dr. Olguin without complication. The patient tolerated the procedure well and was admitted to the medical- telemetry floor for observation. Pathology revealed: Metastatic renal cell carcinoma involving pulmonary tissue, margin negative. She has been on immunotherapy. PAST MEDICAL HISTORY: 1. Tobacco use disorder. 2. Hypertension. 3. Buerger's disease. 4. Anxiety disorder. 5. Degenerative disk disease. 6. Sciatica. FAMILY HISTORY: Her father was diagnosed with acute myeloid leukemia, but had CABG done. Mother of liver failure, from alcohol. Sister at 57 of alcohol related complications. She has 1 brother who is mentally retarded. SOCIAL HISTORY: She is with 2 grown kids. 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 She smoked around 2 packs a day, had been smoking since the age of 17, giving her almost an 80-pack year. She quit in 2011. She used to drink heavily and later on casually. She does not drink alcohol or use illicit drugs. Review of Systems - Constitutional Reports system reviewed and no additional complaints, except as documented, Reports fatigue, Reports lack of energy, Reports malaise, Reports weight loss, Denies fever(s) - Eyes Reports system reviewed and no additional complaints, except as documented - ENT Reports system reviewed and no additional complaints, except as documented - Cardiovascular Reports system reviewed and no additional complaints, except as documented - Respiratory Reports no additional respiratory complaints - Gastrointestinal Reports system reviewed and no additional complaints, except as documented - Genitourinary Reports no additional female genitourinary complaints - Musculoskeletal Reports system reviewed and no additional complaints, except as documented - Integumentary/Breasts Skin/Breast: Reports no additional skin complaints - Neurologic Reports system reviewed and no additional complaints, except as documented - Psychiatric Reports system reviewed and no additional complaints, except as documented - Endocrine Reports no additional endocrine complaints - Hematologic/Lymphatic Reports system reviewed and no additional complaints, except as documented - Allergic/Immunologic Reports system reviewed and no additional complaints, except as documented Oncology Screenings - ECOG Performance Status ECOG Performance Status: 2 [facility] Medical History: Medical History (Last Reviewed 09/27/24 @ 17:10 by Adryan Umanzor DO) Acquired hypothyroidism Annual physical exam Anxiety Benign essential hypertension Bilateral knee pain Breast cancer screening by mammogram Cancer cachexia Chest pain Chest wall pain Chronic allergic bronchitis Colon cancer screening Confusion Constipation COPD (chronic obstructive pulmonary disease) COPD (chronic obstructive pulmonary disease) COPD exacerbation Cough COVID-19 COVID-19 Depression Diminished libido Dizziness Dry eye Easy bruising Elevated C-reactive protein (CRP) Fever Fluid in endometrial cavity GERD (gastroesophageal reflux disease) Left elbow pain Liver lesion Lumbar degenerative disc disease Lytic lesion of bone on x-ray Malignant neoplasm of left kidney Medication management Obstructive sleep apnea Oral thrush LANEY (obstructive sleep apnea) Palpitations Physical deconditioning Pleuritic chest pain Post-operative nausea and vomiting Primary osteoarthritis of knees, bilateral Pure hypercholesterolemia Right foot pain Right lower lobe lung mass Shoulder pain, left Status post fall Supplemental oxygen dependent UTI (urinary tract infection) Vitamin D deficiency Weakness Functional capacity: wheelchair bound Family History: Family History (Last Reviewed 09/27/24 @ 17:10 by Adryan Umanzor DO) Father Hypertension CVD (cardiovascular disease) Cancer Mother Hypertension Substance abuse Other Mental health problem Surgical History: Surgical History (Last Reviewed 09/27/24 @ 17:10 by Adryan Umanzor DO) H/O kidney removal History of nephrectomy Hx of oral surgery Hx of tonsillectomy Metastatic renal cell carcinoma to lung Pulmonary nodule 1 cm or greater in diameter Social History: Social History (Last Reviewed 09/27/24 @ 17:10 by Adryan Umanzor DO) Living Situation History: Household Members: Spouse Household Members: Family Household Members Other:: and brother and sister Housing: House Are you a primary patient care secretary to a significant other at home: No Do you presently have visiting nurse or other home services: Yes Do you presently have visiting nurse or other home services comment: [facility] 1x every 2 weeks. Has been home approx. 2 days Alcohol History Details: 1. How often do you have a drink containing alcohol?: a. Never AUDIT-C Alcohol total score: 0 Currently Displaying Signs/Symptoms of Alcohol Withdrawal: No Tobacco History: Patient Tobacco Use Status: Former Tobacco user Tobacco use type: Cigarette Cigarette Packs Per Day: 1.5 Years Smoked: 30 Smoked in Last 30 Days: No e-Cigarette/Vaping Use: Currently Using Second Hand Smoke Exposure: No Substance Use History: Use of substances other than those prescribed or required for medical reasons : No Currently Displaying Signs/Symptoms of Drug Intoxication Withdrawal: No Domestic Abuse History: Have you been hit, kicked, punched, or otherwise hurt by someone within the past year? If so, by whom?: Have you been hit, kicked, punched, or otherwise hurt by someone within the past year? If so, by whom? comment: pt. nonverbal at this time. Is there a partner from a previous relationship who is making you feel unsafe now?: Is there a partner from a previous relationship who is making you feel unsafe now? comment: nonverbal at this time. Info received from daughter. Are you made to feel afraid or neglected: Are you made to feel afraid or neglected comment: nonverbal Advance Directives: Advance Directives: Yes Advance Directives on File: Yes Advance Directives Date on File: 11/29/23 Homicidal Assessment: Do you have a plan to hurt others: No Plan Nutrition Assessment: Recently lost weight without trying: Yes How much weight loss: 34pounds or more Eating poorly because of decreased appetite: Yes Nutrition screen score: 7 Nutrition Risks: No Nutritional Risk Patient : No : No Poor oral hygiene: No Occupation Assessmet: service: No Current occupational status: disabled Home Medications and Allergies Home Medications ?Medication ?Instructions ?Recorded ?Confirmed ?Type Magic Mouthwash 10 ml PO QID PRN sores 07/01/24 09/27/24 History Diphen/Lido/Antacid 1:1:1 240 mL suspension levothyroxine 25 mcg tablet 25 mcg PO DAILY@0600 07/01/24 09/27/24 History (Synthroid) lidocaine HCl 2 % mucosal solution 1 appl mucous membrane QID PRN 07/01/24 09/27/24 History (Lidocaine Viscous) mouth sores clonazepam 0.5 mg tablet 1 mg PO BEDTIME anxiety 09/27/24 09/27/24 History Allergies Allergy/AdvReac Type Severity Reaction Status Date / Time Sulfa (Sulfonamide Allergy Severe ANAPHYLAXIS Verified 09/26/24 11:58 Antibiotics) Penicillins Allergy Intermediate RASH Verified 09/26/24 11:58 aspirin [ASA] AdvReac Severe severe Verified 09/26/24 11:58 stomach pain NSAIDS (Non-Steroidal AdvReac Severe severe Verified 09/26/24 11:58 Anti-Inflamma stomach pain codeine [Codeine] AdvReac Intermediate NAUSEA & Verified 09/26/24 11:58 VOMITING Physical Exam Vital signs: Vital Signs Temp 97.7 F 09/27/24 09:28 Pulse 111 H 09/27/24 09:28 Resp 19 09/27/24 09:28 BP 150/88 H 09/27/24 09:28 Pulse Ox 93 09/27/24 09:28 O2 Del Method Nasal Cannula 09/27/24 09:28 O2 Flow Rate 2 09/27/24 06:00 Intake & Output 09/26/24 09/27/24 09/27/24 18:59 06:59 18:59 Other: Urine Color Yellow Weight 46 kg Weight 46 kg - Constitutional Present: moderate distress - Routine HEENT Exam Head: Present: normal inspection, normocephalic ENT: Present: mucous membranes moist - Routine Neck Exam Present: supple - Routine Respiratory Exam Present: CTAB - Routine Cardiovascular Exam Cardiovascular: Present: RRR, S1, S2 - Routine Extremities Exam Present: nontender - Routine Skin Exam Present: intact, normal turgor - Routine Neurological Exam Present: alert, oriented X3 Hem/Onc Consult Result - Labs CBC & Chem 7: 09/27/24 17:10 09/27/24 17:10 Labs: Short CBC 09/26/24 Range/Units 12:29 WBC 6.2 (4.8-10.8) X10*3/uL Hgb 12.9 D (12.0-16.0) g/dl Hct 40.3 D (37.0-47.0) % Plt Count 271 D (160-400) X10*3/uL BMP 09/26/24 12:29 Sodium 133 L Potassium 4.5 D Chloride 95 L Carbon Dioxide 33 H BUN 6 L Creatinine 0.60 Calcium 9.2 D Liver Function 09/26/24 Range/Units 12:29 Total Bilirubin 0.4 (0.0-1.0) mg/dL AST 39 H (5-31) U/L ALT 12 (0-31) U/L Alkaline Phosphatase 96 (39-117) U/L Albumin 3.2 L (3.5-5.0) g/dL Urine 09/26/24 Range/Units 15:58 Urine Color Yellow Urine Appearance Clear Urine pH 7.0 (5.0-9.0) Ur Specific [place] 1.015 (1.005-1.025) Urine Protein Trace (Neg-Trace) mg/dL Urine Glucose (UA) Negative (Negative) mg/dL Assessment and Plan Patient Active problem list reviewed?: Yes (1) Metastatic renal cell carcinoma to lung Status: Acute Assessment and plan: This is a pleasant 69 year-old lady with a history of renal cell carcinoma diagnosed back in 2019. She underwent left laparoscopic hand assisted nephrectomy by Dr. Mendoza. 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 Data Synopsis - Kidney Specimen laterality left Tumor size 8.0 x 8.0 x 7.5 cm Tumor focality Multifocal Histologic type Clear cell renal cell carcinoma Sarcomatoid features (%) 0%. MRI of the abdomen from 10/24 revealed: New 4.4 x 5.3 cm lesion high in the dome of the right lobe of the liver concerning for neoplasm. Differential would include infection/abscess. Abnormal chest findings. Follow-up chest CT recommended. Since it was a solitary lesion l proceeded with biopsy to confirm metastatic disease. This was done on 10/24. Pathology revealed: Metastatic renal carcinoma similar to her previous pathology results. CT chest from 11/05/2023: 1. Newly developed fibrotic scar associated with surgical suture lines in the anterior medial right upper lobe with mediastinal shift to the right. 2. Multiple solid pulmonary nodules as described above. The majority of the nodules are stable in size. 3. Persistent Large necrotic tumor in the right hepatic lobe, previously demonstrated on MRI of abdomen. 4. Unchanged asymmetric elevation of left hemidiaphragm and underlying Splenomegaly. I offered her systemic treatment with pembrolizumab and lenvatinib. She started that on 11/07/2023. Cycle 14 was on 08/13. Cycle 15. On 09/03. She has been tolerating the treatment quite well. CT scan of the abdomen from 07/01 had revealed: 2.8 cm, round, hypodense, segment 7 hepatic lesion which appears to demonstrate wall irregularity as well as a mural nodule, similar compared with May 15, 2024, and probably decreased in size compared with February 27, 2024. She mentioned pain in her back and sacrum. Bone scan from 08/08 revealed: No significant abnormalities are present. The L1 vertebra appears unremarkable. Absent left kidney. She now presents with generalized weakness and inability to walk. Her had to carry her down. CT scan of the brain revealed: 1. No acute intracranial pathology. 2. Findings of mild ischemic small vessel disease. 3. Please note, subtle metastatic disease to the brain may not be apparent on noncontrast imaging. A clinical concern is high, further evaluation with MRI scan of the head with and without contrast is recommended. Patient is rather confused. She appears rather dehydrated and deconditioned. I did speak to her daughter regarding her weakened condition and inability to be able to tolerate immunotherapy treatments. Her daughter is concerned she has not had anything to eat or drink for 4 days. She would not want to bring her home in this state. She would like her to have some IV hydration, over the weekend, to see if she would perk up. PLAN: Will arrange for IV hydration. She will be admitted over the weekend. Will see if she makes some recovery. The family will have a better idea to make further decisions. They can then decide about her code status. If she makes a reasonable recovery, will refer her to rehab for physical therapy. Thank you for the consult, I will follow alongwith you, CC: Dr. Lin. - Time Spent With Patient Time Spent with Patient (in minutes): 30
--- NOTE | 2024-09-27 14:09 | MHC.CM.PN ---
CM MET WITH FAMILY AT BEDSIDE. FAMILY WOULD LIKE TO SPEAK WITH ONCOLOGIST BEFORE MAKING A DECISION ON DC DISPOSITION. DR. BLAIR NOTIFIED. P.T RECOMMENDS HOME WITH 24/ CARE VS LTC. CM WILL CONTINUE TO FOLLOW.
[2024-09-27] MEDS: 0.9 % Sodium Chloride 1,000 ML 500 ML IVCONT (14:26)
--- NOTE | 2024-09-27 14:36 | PHA.MEDREC ---
Addendum entered by Misty William RPh 09/27/24 14:38: Daughter also said patient takes clonazepam 1 mg at bedtime (on scheduled). Original Note: Pharmacy Consult ? Medication Reconciliation Pharmacy has completed the medication reconciliation. Patient was recently discharged on 09/20/24 so discharge packet was used for med rec. Also spoke to daughter at bedside to confirm medications. She said patient doesn't use the albuterol inhaler or take pantoprazole. She is done with the doxycycline course but still has 2 tablets left cefuroxime. Her last dose of medications was on 09/24/24.
--- NOTE | 2024-09-27 15:15 | MHC.SLORD ---
Speech Language Pathology Order Status: CLOTHES MODEL did see this patient during recent prior admission (09/16-09/20 recommended ground (NDD2)/thin at the time, patient w/ poor ability to feed herself and increased confusion). Attempted to see patient for bedside swallow eval this afternoon in overflow area after patient failed nursing swallow screen. Patient was sleeping, awoke to light touch. She took ice chips from spoon with complete bolus loss, spilling from mouth, and no swallow initiated, similar presentation as with nursing screen. Patient falling back asleep after a few seconds each time woken up and unable to keep her eyes open. CLOTHES MODEL was unable to evaluate d/t somnolent state. Patient is too lethargic at this time for safe administration of PO. Updated oncologist, attending PA, and RN via [facility] Message. Per PA, patient likely to be admitted to hospital.
[2024-09-27 15:49] LABS: Glucose, Whole Blood 52 mg/dL (60-115)
[2024-09-27] MEDS: Dextrose 50 % 25 GM/50 ML SYRINGE IVPUSH (15:50)
--- NOTE | 2024-09-27 16:01 | PC.NURSE ---
Pt is able to open eyes to pain. very dry mm and caked with gunk . pt acknoweldges that she's in pain. st on monitor.
--- NOTE | 2024-09-27 16:10 | PC.NURSE ---
titrated down to 3L oxymas and still maintaining 100%. Pt does not tolerate mouth care well. awaits admission
--- NOTE | 2024-09-27 16:13 | PC.NURSE ---
unable to safely administer PO meds.
--- NOTE | 2024-09-27 16:44 | PC.NURSE ---
pt arrived at approx 0750 and settled into bed. Airloss system applied to bed for pt with poor mobility. Pt denies pain or other complaint upon arrival. Pt's mouth noted to be very dry and scabbed. attempted mouthcare with pt only tolerating dabbing with water. Pt failed bedside swallow eval. MD notified of oral wounds/swallowing issue and magic mouthwash requested. and daughter at bedside intermittently during the day. Questioned about advanced directives and he states patient is a full code. pt repositioned for comfort and skin several times with pt denying pain each time. She is easily rousable but very sleepy. IV fluids ordered and started. Plan changed to admit patient with bed pending. During vitals patient noted to have O2 sats in 60's and was not answering. skin mottled. O2 applied and pt repositioned for resp. OFFICE CLINICIAN called and NRB applied. Team down to bedside, pt more rousable. Pt moved back to main ED for further assessment....
--- NOTE | 2024-09-27 17:07 | P.HPHOSP_ITS ---
History of Present Illness Date of Service: 09/27/24 Chief Complaint: Generalized weakness 69-year-old female with history of metastatic renal cell carcinoma with metastasis to lungs and liver, COPD on oxygen at baseline, GERD, recently treated for UTI and pneumonia/sepsis presenting via EMS with increased weakness and lethargy. Admitted here on 09/16 with discharge on 09/20. Patient states that she was able to ambulate at home after recent hospital discharge, but has become more weak over the past few days. Complains of right shoulder pain worse with movement. (09/26/2024). Patient was seen in response to a rapid response called for ER overflow. Patient was minimally responsive with mild hypo tension. Initial chest x-ray unremarkable; blood sugar 52. Given 1 amp of D50 with good results. Patient will be admitted to the medical service at this point in time as family requesting she remain a full code Review of Systems 2 Review of Systems: Unable to obtain COUNT INCLUDES [facility] Medical History Medication management Annual physical exam Weakness Dizziness Elevated C-reactive protein (CRP) Fever LANEY (obstructive sleep apnea) Cough Pleuritic chest pain COPD exacerbation Confusion Chest wall pain Bilateral knee pain Shoulder pain, left Left elbow pain Right foot pain COVID-19 Malignant neoplasm of left kidney Diminished libido Breast cancer screening by mammogram UTI (urinary tract infection) Colon cancer screening Easy bruising Chest pain Status post fall Supplemental oxygen dependent Lytic lesion of bone on x-ray Fluid in endometrial cavity Physical deconditioning Cancer cachexia Acquired hypothyroidism COPD (chronic obstructive pulmonary disease) Liver lesion Right lower lobe lung mass Post-operative nausea and vomiting Dry eye COVID-19 COPD (chronic obstructive pulmonary disease) Vitamin D deficiency Depression Primary osteoarthritis of knees, bilateral Pure hypercholesterolemia Palpitations Constipation Obstructive sleep apnea Anxiety Benign essential hypertension Oral thrush Lumbar degenerative disc disease Chronic allergic bronchitis GERD (gastroesophageal reflux disease) Functional capacity: wheelchair bound Family History Father Hypertension CVD (cardiovascular disease) Cancer Mother Hypertension Substance abuse Other Mental health problem Surgical History Metastatic renal cell carcinoma to lung H/O kidney removal Hx of oral surgery Hx of tonsillectomy Pulmonary nodule 1 cm or greater in diameter History of nephrectomy Social History Household Members: Spouse Household Members Other:: and brother and sister Housing: House Are you a primary career representative to a significant other at home: No Alcohol intake: never Comment: COUNTS CORRECT Patient Tobacco Use Status: Former Tobacco user Tobacco use type: Cigarette Cigarette Packs Per Day: 1.5 Years Smoked: 30 Smoked in Last 30 Days: No e-Cigarette/Vaping Use: Currently Using Second Hand Smoke Exposure: No Use of substances other than those prescribed or required for medical reasons: No Advance Directives: Yes Advance Directives on File: Yes Advance Directives Date on File: 11/29/23 service: No Current occupational status: disabled Cognitive needs: No Hearing needs: No Vision needs: No Meds Allergies Allergy/AdvReac Type Severity Reaction Status Date / Time Sulfa (Sulfonamide Allergy Severe ANAPHYLAXIS Verified 09/26/24 11:58 Antibiotics) Penicillins Allergy Intermediate RASH Verified 09/26/24 11:58 aspirin [ASA] AdvReac Severe severe Verified 09/26/24 11:58 stomach pain NSAIDS (Non-Steroidal AdvReac Severe severe Verified 09/26/24 11:58 Anti-Inflamma stomach pain codeine [Codeine] AdvReac Intermediate NAUSEA & Verified 09/26/24 11:58 VOMITING Active Medications: Current Medications Acetaminophen (Acetaminophen 325 Mg Tablet) 650 mg PO Q6H PRN PRN Reason: Pain, Mild 1-3,fever,headache Amitriptyline HCl (Amitriptyline Hcl 25 Mg Tablet) 75 mg PO DAILY [facility] Atorvastatin Calcium (Atorvastatin Calcium 10 Mg Tablet) 10 mg PO DAILY [facility] Bupropion HCl (Bupropion Hcl Xl 150 Mg Tab.Er.24h) 150 mg PO DAILY [facility] Last Admin: 09/27/24 16:13 Dose: Not Given Cefuroxime Axetil (Cefuroxime Axetil 500 Mg Tablet) 500 mg PO BID [facility] Clonazepam (Clonazepam 1 Mg Tablet) 1 mg PO BEDTIME [facility] Enoxaparin Sodium (Enoxaparin Sodium 40 Mg/0.4 Ml Syringe) 40 mg SUBCUT Q24H [facility] Gabapentin (Gabapentin 400 Mg Capsule) 400 mg PO TID [facility] Last Admin: 09/27/24 16:13 Dose: Not Given Dextrose (D10) 250 mls @ 750 mls/hr IV Q15M PRN PRN Reason: per Hypoglycemia Standing Ord. Dextrose/Lactated Ringer's (D5lr) 1,000 mls @ 100 mls/hr IVCONT .Q10H [facility] Levothyroxine Sodium (Levothyroxine Sodium 25 Mcg Tablet) 25 mcg PO DAILY@0600 [facility] Lidocaine HCl (Lidocaine Hcl Viscous 2 % 15 Ml Solution) 1 ml MUCOUS MEM QID PRN PRN Reason: mouth sores Lidocaine/Diphenhydr/Alum/Mg/Simeth (Mag&Al/Sim/Diphenhyd/Lidocaine 10 Ml Oral.Susp) 10 ml PO QID PRN PRN Reason: sores Morphine Sulfate (Morphine Sulfate 4 Mg/Ml Cartridge) 4 mg IVPUSH Q3H PRN; Protocol PRN Reason: Pain, Moderate(Pain Scale 4-6) Nifedipine (Nifedipine Er 30 Mg Tab.Er.24) 30 mg PO DAILY [facility] Non-Formulary Medication (Lenvatinib [Lenvima]) 20 mg PO DAILY [facility] Ondansetron HCl (Ondansetron Hcl 4 Mg/2 Ml Vial) 4 mg IVPUSH Q8H PRN PRN Reason: Nausea and Vomiting Sodium Chloride (0.9 % Sodium Chloride Flush 3 Ml Syringe) 3 ml IVFLUSH QSHIFT [facility] Vitamin D (Cholecalciferol (Vitamin D3) 25 Mcg Tablet) 50 mcg PO DAILY [facility] Home Medications ?Medication ?Instructions ?Recorded ?Confirmed ?Last Taken ?Type Magic Mouthwash 10 ml PO QID PRN sores 07/01/24 09/27/24 09/24/24 History Diphen/Lido/Antacid 1:1:1 240 mL suspension levothyroxine 25 mcg tablet 25 mcg PO DAILY@0600 07/01/24 09/27/24 09/24/24 History (Synthroid) lidocaine HCl 2 % mucosal solution 1 appl mucous membrane QID PRN 07/01/24 09/27/24 09/24/24 History (Lidocaine Viscous) mouth sores clonazepam 0.5 mg tablet 1 mg PO BEDTIME anxiety 09/27/24 09/27/24 09/24/24 History Physical Exam 2 Vital Signs and Narrative: Vital Signs: Last Vital Signs Temp 98.6 F 09/27/24 16:57 Pulse 107 H 09/27/24 16:57 Resp 18 09/27/24 16:57 BP 124/70 09/27/24 16:57 Pulse Ox 99 09/27/24 16:57 O2 Del Method Oxymask 09/27/24 16:57 O2 Flow Rate 3 09/27/24 16:10 Oxygen Flow Rate 15 09/27/24 16:05 BMI result Body Mass Index 18.0 Const: Other: Somnolent but arousable. Complaining of diffuse severe pain.. Cachectic Resp: Other: Clear to auscultation bilaterally no rales rhonchi or wheezes Cardio: Other: No S4; positive S1-S2; no S3 murmurs rubs or gallops GI: Other: Soft nontender nondistended with normoactive bowel sounds Extrem: Other: No edema bilaterally Results Labs 09/26/24 12:29 09/26/24 12:29 Labs: Laboratory Results - last 24 hr 09/27/24 15:46 POC Glucose 52 L* Assessment and Plan (1) Weakness: Status: Acute (2) Metastatic renal cell carcinoma to lung: Qualifiers: Laterality: unspecified laterality Qualified Code(s): C78.00 - Secondary malignant neoplasm of unspecified lung; C64.9 - Malignant neoplasm of unspecified kidney, except renal pelvis Status: Acute (3) Hypoglycemia: Status: Acute Plan 69-year-old female with widely metastatic renal cell carcinoma admitted to physician observation secondary to weakness. Was admitted to physician observation and during that time a rapid response was called for change in mental status and minimally responsiveness. Patient seen examined. Chest x-ray so far unremarkable. Point of care 52 given 1 amp of D50 with good results. Remaining workup pending 1. Weakness secondary to widely metastatic renal cell carcinoma -will continue outpatient therapies as recommended by Dr. Delacruz -D5 LR at 100 cc an hour -morphine 4 mg IV q.3 hours p.r.n. pain -hold Eliquis... Prophylactic Lovenox -we will discuss further plans with Dr. Delacruz 2. Hypoglycemia. .. Likely related to poor p.o. intake -continue D5 LR at 100 cc an hour -follow up point cares q.6 hours -speech eval in a.m. Lovenox Full Code Patient will require at least 2 midnights going forward to complete workup for weakness and discuss plans going forward. Quality Stroke Does the patient have a stroke diagnosis?: No VTE Prior VTE?: No VTE Risk Level:: Medical - moderate - high VTE Device Contraindication: Treatment Not Indicated VTE Drug Contraindication: N/A - Med Ordered
[2024-09-27 17:15] LABS: MANUAL DIFF FLAG NO
[2024-09-27 17:26] LABS: Basophils Absolute Auto 0.1 X10*3/uL (0.0-0.2); Eosinophils Absolute Auto 0.3 X10*3/uL (0.0-0.4); Eosinophils Percent Auto 4.2 % (0-4); Hematocrit 40.5 % (37.0-47.0); Hemoglobin 12.8 g/dl (12.0-16.0); Imm Gran Abs Auto 0.02 X10*3/uL (0.00-0.03); Imm Gran Pct Auto 0.3 % (0.0-0.4); Lymphocytes Absolute Auto 0.8 X10*3/uL (1.2-4.9); Lymphocytes Percent Auto 11.8 % (20-40); Mean Corpuscular HGB Conc 31.6 g/dl (31.0-35.0); Mean Corpuscular Hemoglobin 27.8 pg (27.0-33.0); Mean Corpuscular Volume 87.9 fL (80.0-98.0); Mean Platelet Volume 9.4 fL (9.4-12.3); Monocytes Absolute Auto 0.4 X10*3/uL (0.1-1.2); Monocytes Percent Auto 5.9 % (2-11); Neutrophils Absolute Auto 5.3 x10*3/uL (2.0-8.3); Neutrophils Percent Auto 76.8 % (45-73); Platelet Count 302 X10*3/uL (160-400); Red Blood Count 4.61 X10*6/uL (4.20-5.50); Red Cell Distribution Width 14.3 % (11.0-16.0); White Blood Count 6.9 X10*3/uL (4.8-10.8)
[2024-09-27] MEDS: Morphine Sulfate 4 MG/ML CARTRIDGE IVPUSH (17:26)
[2024-09-27] MEDS: Dextrose 5 % and Lactated Ring 1,000 ML 100 ML IVCONT (17:26)
[2024-09-27 17:31] LABS: Alanine Aminotransferase 10 U/L (0-31); Alkaline Phosphatase 94 U/L (39-117); Anion Gap 19 (12-20); Aspartate Amino Transferase 22 U/L (5-31); Bilirubin Total 0.4 mg/dL (0.0-1.0); Blood Urea Nitrogen 11 mg/dL (9-16); Calcium 8.8 mg/dL (8.4-10.2); Carbon Dioxide 26 mmol/L (22-29); Chloride 94 mmol/L (96-108); Creatinine Clr Calc Pharmacy 58.3; Estimated Glomerular Filt Rate > 60; Glucose Random 190 mg/dL (60-115); Potassium 4.5 mmol/L (3.3-5.1); Sodium 134 mmol/L (135-145)
[2024-09-27] MEDS: Enoxaparin Sodium 40 MG/0.4 ML SYRINGE SUBCUT (17:32)
--- NOTE | 2024-09-27 17:45 | MHC.CM.ED ---
Addendum entered by Jerilyn Qureshi 09/27/24 17:57: Copy of IMM given to and copy to medical records. Original Note: IMM 09/27. Reviewed and signed by , Kwaku. Pt is minimally responsive. Very lethargic. Rouses to name. Pt is a full code. tells CM that his step daughter spoke with Dr. Delacruz. Per Kwaku, they will hold chemotherapy treatments for now and see how the patient responds. Kwaku tells CM that his is a fighter. CM gently reminded that sometimes its too hard to fight, sometimes the goal is comfort. is not in a state to talk about hospice care. is not in a state to discuss discharge planning.. PT has recommended 24/04 care at home or LTC. Kwaku is speaking with CM about the animals at home and if his should go home to 4 cats and 4 dogs. Concerned about cat litter. CM explained that CM will continue to follow his and the CM on the floor will further discuss discharge planning. Kwaku is aware that PT is not recommending any rehab. Kwaku tells CM is step daughter will be in soon.
[2024-09-28 00:03] LABS: Glucose, Whole Blood 178 mg/dL (60-115)
[2024-09-28] MEDS: Dextrose 5 % and Lactated Ring 1,000 ML 100 ML IVCONT ×3 (01:01→22:08)
[2024-09-28] MEDS: Morphine Sulfate 4 MG/ML CARTRIDGE IVPUSH ×3 (03:27→22:08)
[2024-09-28 04:00] VITALS: BP 137/68; PULSE 88; RESP 18; TEMP 37.1; O2SAT 100
[2024-09-28 06:10] LABS: Glucose, Whole Blood 133 mg/dL (60-115)
[2024-09-28 07:19] VITALS: BP 133/78; PULSE 95; RESP 18; TEMP 36.2; O2SAT 100
[2024-09-28] MEDS: 0.9 % Sodium Chloride Flush 3 ML SYRINGE IVFLUSH ×2 (08:44→22:09)
[2024-09-28 11:00] VITALS: BP 119/68; PULSE 94; RESP 18; TEMP 36.4; O2SAT 94
[2024-09-28 11:59] LABS: Glucose, Whole Blood 123 mg/dL (60-115)
--- NOTE | 2024-09-28 12:41 | HO.PM.IMPN ---
Subjective Subjective Date of Service: 09/28/24 Interval History: Somnolent. .. Minimally arousable Review of Systems Unable to obtain Physical Exam Vital Signs: Vital Signs: Last Vital Signs Temp 97.6 F 09/28/24 11:00 Pulse 94 09/28/24 11:00 Resp 18 09/28/24 11:00 BP 119/68 09/28/24 11:00 Pulse Ox 94 09/28/24 11:00 O2 Del Method Nasal Cannula 09/28/24 11:00 O2 Flow Rate 2 09/28/24 11:00 Oxygen Flow Rate 15 09/27/24 16:05 BMI result Body Mass Index 18.0 Const: Other: Somnolent but arousable. Complaining of diffuse severe pain.. Cachectic Resp: Other: Clear to auscultation bilaterally no rales rhonchi or wheezes Cardio: Other: No S4; positive S1-S2; no S3 murmurs rubs or gallops GI: Other: Soft nontender nondistended with normoactive bowel sounds Extrem: Other: No edema bilaterally Objective Data Active Medications Acetaminophen (Acetaminophen 325 Mg Tablet) 650 mg PO Q6H PRN PRN Reason: Pain, Mild 1-3,fever,headache Amitriptyline HCl (Amitriptyline Hcl 25 Mg Tablet) 75 mg PO DAILY [facility] Last Admin: 09/28/24 11:09 Dose: Not Given Documented By: ANGELICA Non-Admin Reason: Patient Asleep Atorvastatin Calcium (Atorvastatin Calcium 10 Mg Tablet) 10 mg PO DAILY [facility] Last Admin: 09/28/24 11:09 Dose: Not Given Documented By: ANGELICA Non-Admin Reason: Patient Asleep Bupropion HCl (Bupropion Hcl Xl 150 Mg Tab.Er.24h) 150 mg PO DAILY [facility] Last Admin: 09/28/24 11:09 Dose: Not Given Documented By: ANGELICA Non-Admin Reason: Patient Asleep Cefuroxime Axetil (Cefuroxime Axetil 500 Mg Tablet) 500 mg PO BID [facility] Last Admin: 09/28/24 11:09 Dose: Not Given Documented By: ANGELICA Non-Admin Reason: Patient Asleep Clonazepam (Clonazepam 1 Mg Tablet) 1 mg PO BEDTIME [facility] Last Admin: 09/27/24 21:29 Dose: Not Given Documented By: DI Non-Admin Reason: NPO Enoxaparin Sodium (Enoxaparin Sodium 40 Mg/0.4 Ml Syringe) 40 mg SUBCUT Q24H [facility] Last Admin: 09/27/24 17:32 Dose: 40 mg Documented By: LORY Gabapentin (Gabapentin 400 Mg Capsule) 400 mg PO TID [facility] Last Admin: 09/28/24 11:10 Dose: Not Given Documented By: ANGELICA Non-Admin Reason: Patient Asleep Dextrose (D10) 250 mls @ 750 mls/hr IV Q15M PRN PRN Reason: per Hypoglycemia Standing Ord. Dextrose/Lactated Ringer's (D5lr) 1,000 mls @ 100 mls/hr IVCONT .Q10H [facility] Last Admin: 09/28/24 01:01 Dose: 100 mls/hr Documented By: DI Levothyroxine Sodium (Levothyroxine Sodium 25 Mcg Tablet) 25 mcg PO DAILY@0600 [facility] Last Admin: 09/28/24 06:18 Dose: Not Given Documented By: DI Non-Admin Reason: NPO Lidocaine HCl (Lidocaine Hcl Viscous 2 % 15 Ml Solution) 1 ml MUCOUS MEM QID PRN PRN Reason: mouth sores Lidocaine/Diphenhydr/Alum/Mg/Simeth (Mag&Al/Sim/Diphenhyd/Lidocaine 10 Ml Oral.Susp) 10 ml PO QID PRN PRN Reason: sores Morphine Sulfate (Morphine Sulfate 4 Mg/Ml Cartridge) 4 mg IVPUSH Q3H PRN; Protocol PRN Reason: Pain, Moderate(Pain Scale 4-6) Last Admin: 09/28/24 03:27 Dose: 4 mg Documented By: DI Nifedipine (Nifedipine Er 30 Mg Tab.Er.24) 30 mg PO DAILY [facility] Last Admin: 09/28/24 11:10 Dose: Not Given Documented By: ANGELICA Non-Admin Reason: Patient Asleep Non-Formulary Medication (Lenvatinib [Lenvima]) 20 mg PO DAILY [facility] Ondansetron HCl (Ondansetron Hcl 4 Mg/2 Ml Vial) 4 mg IVPUSH Q8H PRN PRN Reason: Nausea and Vomiting Sodium Chloride (0.9 % Sodium Chloride Flush 3 Ml Syringe) 3 ml IVFLUSH QSHIFT [facility] Last Admin: 09/28/24 08:44 Dose: 3 ml Documented By: ANGELICA Vitamin D (Cholecalciferol (Vitamin D3) 25 Mcg Tablet) 50 mcg PO DAILY [facility] Last Admin: 09/28/24 11:09 Dose: Not Given Documented By: ANGELICA Non-Admin Reason: Patient Asleep Labs 09/27/24 17:10 09/27/24 17:10 Labs: Laboratory Results - last 24 hr 09/27/24 09/27/24 09/27/24 15:46 17:10 23:55 MCV 87.9 MCH 27.8 MCHC 31.6 RDW 14.3 Plt Count 302 MPV 9.4 Immature Gran % (Auto) 0.3 Neut % (Auto) 76.8 H Lymph % (Auto) 11.8 L Vernon % (Auto) 5.9 Eos % (Auto) 4.2 H Baso % (Auto) 1.0 Lymph # (Auto) 0.8 L Vernon # (Auto) 0.4 Eos # (Auto) 0.3 Baso # (Auto) 0.1 Abs Immat Gran (auto) 0.02 Absolute Neuts (auto) 5.3 Absolute Nucleated RBC 0.000 Nucleated RBC % (auto) 0.0 Anion Gap 19 Estim Creat Clear Calc 58.3 Estimated GFR > 60 POC Glucose 52 L* 178 H Random Glucose 190 H Calcium 8.8 Total Bilirubin 0.4 AST 22 ALT 10 Alkaline Phosphatase 94 Total Protein 6.0 L Albumin 3.0 L 09/28/24 09/28/24 05:59 11:51 MCV MCH MCHC RDW Plt Count MPV Immature Gran % (Auto) Neut % (Auto) Lymph % (Auto) Vernon % (Auto) Eos % (Auto) Baso % (Auto) Lymph # (Auto) Vernon # (Auto) Eos # (Auto) Baso # (Auto) Abs Immat Gran (auto) Absolute Neuts (auto) Absolute Nucleated RBC Nucleated RBC % (auto) Anion Gap Estim Creat Clear Calc Estimated GFR POC Glucose 133 H 123 H Random Glucose Calcium Total Bilirubin AST ALT Alkaline Phosphatase Total Protein Albumin Microbiology Microbiology Results: Microbiology 09/26/24 12:29 Blood Culture - Preliminary Blood - Venous No growth after 24 hours. 09/26/24 12:30 Blood Culture - Preliminary Blood - Venous No growth after 24 hours. Assessment and Plan (1) Metastatic renal cell carcinoma to lung: Status: Acute (2) Acute metabolic encephalopathy: Status: Acute (3) Hypoglycemia: Status: Acute Plan 69-year-old female with widely metastatic renal cell carcinoma admitted to physician observation secondary to weakness. Was admitted to physician observation and during that time a rapid response was called for change in mental status and minimally responsiveness. Patient seen examined. Chest x-ray so far unremarkable. Point of care 52 given 1 amp of D50 with good results. Remaining workup pending 1. Weakness secondary to widely metastatic renal cell carcinoma -not awake enough for p.o. meds -D5 LR at 100 cc an hour -morphine 4 mg IV q.3 hours p.r.n. pain -hold Eliquis... Prophylactic Lovenox -we will discuss further plans with Dr. Delacruz 2. Hypoglycemia. .. Likely related to poor p.o. intake -continue D5 LR at 100 cc an hour -follow up point cares q.6 hours -speech eval in a.m. Lovenox Full Code Attempting to discuss plans with however unsuccessful reaching. We will continue current therapies and continue full code status Quality Stroke Does the patient have a stroke diagnosis?: No VTE Prior VTE?: No VTE Risk Level:: Medical - moderate - high VTE Device Contraindication: Treatment Not Indicated VTE Drug Contraindication: N/A - Med Ordered
--- NOTE | 2024-09-28 14:13 | PC.NURSE ---
unable to urinate , bladder scanned for 395 ml straight cath for 350 ml clear yellow urine
[2024-09-28 15:29] VITALS: BP 133/75; PULSE 100; RESP 18; TEMP 36.3; O2SAT 97
[2024-09-28 17:50] LABS: Glucose, Whole Blood 122 mg/dL (60-115)
[2024-09-28] MEDS: Enoxaparin Sodium 40 MG/0.4 ML SYRINGE SUBCUT (18:01)
[2024-09-28 19:44] VITALS: BP 123/67; PULSE 97; RESP 18; TEMP 36.1; O2SAT 99
[2024-09-28 23:40] VITALS: BP 132/67; PULSE 96; RESP 16; TEMP 36.2; O2SAT 100
[2024-09-28 23:52] LABS: Glucose, Whole Blood 122 mg/dL (60-115)
[2024-09-29 03:54] VITALS: BP 131/73; PULSE 93; RESP 20; TEMP 36.4; O2SAT 99
[2024-09-29 06:59] VITALS: BP 141/71; PULSE 96; RESP 16; TEMP 36.2; O2SAT 99
[2024-09-29] MEDS: Dextrose 5 % and Lactated Ring 1,000 ML 100 ML IVCONT ×2 (08:20→17:50)
[2024-09-29] MEDS: 0.9 % Sodium Chloride Flush 3 ML SYRINGE IVFLUSH ×3 (08:22→20:08)
[2024-09-29 10:48] VITALS: BP 132/70; PULSE 98; RESP 20; TEMP 36.4; O2SAT 93
[2024-09-29 11:15] LABS: Glucose, Whole Blood 115 mg/dL (60-115)
[2024-09-29 11:32] LABS: Glucose, Whole Blood 109 mg/dL (60-115)
[2024-09-29] MEDS: Morphine Sulfate 4 MG/ML CARTRIDGE IVPUSH ×4 (11:37→20:06)
--- NOTE | 2024-09-29 12:37 | P.PNIM_ITS ---
Subjective Subjective Date of Service: 09/29/24 Interval History: More awake today however nonverbal. Can not initiate swallow .... continue NPO status Review of Systems Unable to obtain Physical Exam 2 Vital Signs: Vital Signs: Last Vital Signs Temp 97.5 F 09/29/24 10:48 Pulse 98 09/29/24 10:48 Resp 20 09/29/24 10:48 BP 132/70 09/29/24 10:48 Pulse Ox 93 09/29/24 10:48 O2 Del Method Room Air 09/29/24 10:48 O2 Flow Rate 4 09/29/24 06:59 Oxygen Flow Rate 15 09/27/24 16:05 BMI result Body Mass Index 18.0 Const: Other: Somnolent but arousable. Complaining of diffuse severe pain.. Cachectic Resp: Other: Clear to auscultation bilaterally no rales rhonchi or wheezes Cardio: Other: No S4; positive S1-S2; no S3 murmurs rubs or gallops GI: Other: Soft nontender nondistended with normoactive bowel sounds Extrem: Other: No edema bilaterally Objective Data Active Medications Acetaminophen (Acetaminophen 325 Mg Tablet) 650 mg PO Q6H PRN PRN Reason: Pain, Mild 1-3,fever,headache Amitriptyline HCl (Amitriptyline Hcl 25 Mg Tablet) 75 mg PO DAILY [facility] Last Admin: 09/29/24 11:38 Dose: Not Given Documented By: GÓMEZ Non-Admin Reason: NPO Atorvastatin Calcium (Atorvastatin Calcium 10 Mg Tablet) 10 mg PO DAILY [facility] Last Admin: 09/29/24 11:38 Dose: Not Given Documented By: GÓMEZ Non-Admin Reason: NPO Bupropion HCl (Bupropion Hcl Xl 150 Mg Tab.Er.24h) 150 mg PO DAILY [facility] Last Admin: 09/29/24 11:38 Dose: Not Given Documented By: GÓMEZ Non-Admin Reason: NPO Clonazepam (Clonazepam 1 Mg Tablet) 1 mg PO BEDTIME [facility] Last Admin: 09/28/24 21:12 Dose: Not Given Documented By: RAYSHAWN Non-Admin Reason: NPO Enoxaparin Sodium (Enoxaparin Sodium 40 Mg/0.4 Ml Syringe) 40 mg SUBCUT Q24H [facility] Last Admin: 09/28/24 18:01 Dose: 40 mg Documented By: ANGELICA Gabapentin (Gabapentin 400 Mg Capsule) 400 mg PO TID [facility] Last Admin: 09/29/24 11:38 Dose: Not Given Documented By: GÓMEZ Non-Admin Reason: NPO Dextrose (D10) 250 mls @ 750 mls/hr IV Q15M PRN PRN Reason: per Hypoglycemia Standing Ord. Dextrose/Lactated Ringer's (D5lr) 1,000 mls @ 100 mls/hr IVCONT .Q10H [facility] Last Admin: 09/29/24 08:20 Dose: 100 mls/hr Documented By: GÓMEZ Levothyroxine Sodium (Levothyroxine Sodium 25 Mcg Tablet) 25 mcg PO DAILY@0600 [facility] Last Admin: 09/29/24 06:44 Dose: Not Given Documented By: JEFF Non-Admin Reason: NPO with no PO meds Lidocaine HCl (Lidocaine Hcl Viscous 2 % 15 Ml Solution) 1 ml MUCOUS MEM QID PRN PRN Reason: mouth sores Lidocaine/Diphenhydr/Alum/Mg/Simeth (Mag&Al/Sim/Diphenhyd/Lidocaine 10 Ml Oral.Susp) 10 ml PO QID PRN PRN Reason: sores Morphine Sulfate (Morphine Sulfate 4 Mg/Ml Cartridge) 4 mg IVPUSH Q3H PRN; Protocol PRN Reason: Pain, Moderate(Pain Scale 4-6) Last Admin: 09/29/24 11:37 Dose: 4 mg Documented By: GÓMEZ Nifedipine (Nifedipine Er 30 Mg Tab.Er.24) 30 mg PO DAILY [facility] Last Admin: 09/29/24 11:38 Dose: Not Given Documented By: GÓMZE Non-Admin Reason: NPO Non-Formulary Medication (Lenvatinib [Lenvima]) 20 mg PO DAILY [facility] Ondansetron HCl (Ondansetron Hcl 4 Mg/2 Ml Vial) 4 mg IVPUSH Q8H PRN PRN Reason: Nausea and Vomiting Sodium Chloride (0.9 % Sodium Chloride Flush 3 Ml Syringe) 3 ml IVFLUSH QSHIFT [facility] Last Admin: 09/29/24 08:22 Dose: 3 ml Documented By: GÓMEZ Vitamin D (Cholecalciferol (Vitamin D3) 25 Mcg Tablet) 50 mcg PO DAILY [facility] Last Admin: 09/29/24 11:38 Dose: Not Given Documented By: GÓMEZ Non-Admin Reason: NPO Labs 09/27/24 17:10 09/27/24 17:10 Labs: Laboratory Results - last 24 hr 09/28/24 09/28/24 09/29/24 17:44 23:49 06:03 POC Glucose 122 H 122 H 115 09/29/24 11:28 POC Glucose 109 Microbiology Microbiology Results: Microbiology 09/26/24 12:29 Blood Culture - Preliminary Blood - Venous No growth after 48 hours. 09/26/24 12:30 Blood Culture - Preliminary Blood - Venous No growth after 48 hours. Assessment and Plan (1) Metastatic renal cell carcinoma to lung: Status: Acute Plan 69-year-old female with widely metastatic renal cell carcinoma admitted to physician observation secondary to weakness. Was admitted to physician observation and during that time a rapid response was called for change in mental status and minimally responsiveness. Patient seen examined. Chest x-ray so far unremarkable. Point of care 52 given 1 amp of D50 with good results. Remaining workup pending 1. Weakness secondary to widely metastatic renal cell carcinoma -unable to initiate swallow. . . We will continue NPO status -D5 LR at 100 cc an hour -morphine 4 mg IV q.3 hours p.r.n. pain -hold Eliquis... Prophylactic Lovenox -long discussion with De who is proxy. Patient made DNR DNI; needs to talk with his step children prior to moving to comfort measures. Spoke with son Gerald who agrees with comfort care. He will be flying up from [place] to see mother 2. Hypoglycemia. .. Likely related to poor p.o. intake -continue D5 LR at 100 cc an hour -follow up point cares q.6 hours Lovenox Full Code Discussed with De; moving towards comfort care once he can discuss with family. Made DNR DNI in the meantime Quality Stroke Does the patient have a stroke diagnosis?: No VTE Prior VTE?: No VTE Risk Level:: Medical - moderate - high VTE Device Contraindication: Treatment Not Indicated VTE Drug Contraindication: N/A - Med Ordered
[2024-09-29 15:34] VITALS: BP 141/68; PULSE 95; RESP 18; TEMP 36.4; O2SAT 99
[2024-09-29] MEDS: Enoxaparin Sodium 40 MG/0.4 ML SYRINGE SUBCUT (17:45)
[2024-09-29 17:49] LABS: Glucose, Whole Blood 101 mg/dL (60-115)
[2024-09-29 19:51] VITALS: BP 131/78; PULSE 96; RESP 18; TEMP 36.4; O2SAT 100
[2024-09-29 20:36] VITALS: RESP 18
[2024-09-30] VITALS (10 sets, daily range): BP systolic 127–164; BP diastolic 70–94; PULSE 92–106; RESP 14–20; TEMP 36.1–36.9; O2SAT 97–99; BMI 18.0
[2024-09-30 00:41] LABS: Glucose, Whole Blood 105 mg/dL (60-115)
[2024-09-30] MEDS: Morphine Sulfate 4 MG/ML CARTRIDGE IVPUSH ×5 (03:35→21:53)
[2024-09-30] MEDS: Dextrose 5 % and Lactated Ring 1,000 ML 100 ML IVCONT ×2 (03:53→18:05)
[2024-09-30 06:28] LABS: Glucose, Whole Blood 104 mg/dL (60-115)
--- NOTE | 2024-09-30 07:23 | MHC.CLN ---
RE; CONSULT PT IS MODERATELY MALNOURISHED PT WITH MILDLY DEPLETED SUBCUTANEOUS FAT AND MUSCLE MASS WITH BMI 18 WITH CHRONIC POOR PO INTAKE. PT CURRENTLY NONVERBAL AND UNABLE TO SWALLOW PO NPO DIET RECENTLY MADE DNI/DNR-FAMILY CONSIDERING NOVELTY TWISTER TENDER WILL FOLLOW WITH TEAM AND PROVIDE SUPPORT NEEDED SEE ALSO FULL CLINICAL NUTRITION ASSESSMENT
[2024-09-30 07:34] LABS: Glucose, Whole Blood 106 mg/dL (60-115)
--- NOTE | 2024-09-30 10:19 | MHC.CM.PN ---
Per MD in [place], Family is considering WELDER EXPLOSION and CM will follow.
--- NOTE | 2024-09-30 10:44 | MHC.SLORD ---
Speech Language Pathology Order Status: MD consulted, pt is not appropriate for swallow eval today. TRANSPORTATION MAINTENANCE SPECIALIST determination in process. SECRETARY BOOKKEEPER to check status tomorrow, RN/MD to text as bedside swallow indicated.
[2024-09-30 12:24] LABS: Glucose, Whole Blood 86 mg/dL (60-115)
--- NOTE | 2024-09-30 14:27 | HO.PM.IMPN ---
Subjective Subjective Date of Service: 09/30/24 Interval History: Somnolent but arousable. Utilizing pulse dose morphine with fair results Review of Systems Unable to obtain Physical Exam Vital Signs: Vital Signs: Last Vital Signs Temp 97.7 F 09/30/24 11:40 Pulse 102 H 09/30/24 11:40 Resp 14 09/30/24 11:40 BP 141/70 H 09/30/24 11:40 Pulse Ox 99 09/30/24 11:40 O2 Del Method Nasal Cannula 09/30/24 11:40 O2 Flow Rate 3 09/30/24 11:40 Oxygen Flow Rate 15 09/27/24 16:05 BMI result Body Mass Index 18.0 Const: Other: Somnolent but arousable. Complaining of diffuse severe pain.. Cachectic Resp: Other: Clear to auscultation bilaterally no rales rhonchi or wheezes Cardio: Other: No S4; positive S1-S2; no S3 murmurs rubs or gallops GI: Other: Soft nontender nondistended with normoactive bowel sounds Extrem: Other: No edema bilaterally Objective Data Active Medications Acetaminophen (Acetaminophen 325 Mg Tablet) 650 mg PO Q6H PRN PRN Reason: Pain, Mild 1-3,fever,headache Amitriptyline HCl (Amitriptyline Hcl 25 Mg Tablet) 75 mg PO DAILY [facility] Last Admin: 09/30/24 08:10 Dose: Not Given Documented By: NEEMA Non-Admin Reason: NPO Atorvastatin Calcium (Atorvastatin Calcium 10 Mg Tablet) 10 mg PO DAILY [facility] Last Admin: 09/30/24 08:10 Dose: Not Given Documented By: NEEMA Non-Admin Reason: NPO Bupropion HCl (Bupropion Hcl Xl 150 Mg Tab.Er.24h) 150 mg PO DAILY [facility] Last Admin: 09/30/24 08:10 Dose: Not Given Documented By: NEEMA Non-Admin Reason: NPO Clonazepam (Clonazepam 1 Mg Tablet) 1 mg PO BEDTIME [facility] Last Admin: 09/29/24 20:09 Dose: Not Given Documented By: TERE Non-Admin Reason: Patient Condition Contraindication Enoxaparin Sodium (Enoxaparin Sodium 40 Mg/0.4 Ml Syringe) 40 mg SUBCUT Q24H [facility] Last Admin: 09/29/24 17:45 Dose: 40 mg Documented By: GÓMEZ Gabapentin (Gabapentin 400 Mg Capsule) 400 mg PO TID [facility] Last Admin: 09/30/24 14:07 Dose: Not Given Documented By: NEEMA Non-Admin Reason: NPO Dextrose (D10) 250 mls @ 750 mls/hr IV Q15M PRN PRN Reason: per Hypoglycemia Standing Ord. Dextrose/Lactated Ringer's (D5lr) 1,000 mls @ 100 mls/hr IVCONT .Q10H [facility] Last Infusion: 09/30/24 13:55 Dose: Infused Documented By: NEEMA Levothyroxine Sodium (Levothyroxine Sodium 25 Mcg Tablet) 25 mcg PO DAILY@0600 [facility] Last Admin: 09/30/24 04:44 Dose: Not Given Documented By: TERE Non-Admin Reason: Patient Condition Contraindication Lidocaine HCl (Lidocaine Hcl Viscous 2 % 15 Ml Solution) 1 ml MUCOUS MEM QID PRN PRN Reason: mouth sores Lidocaine/Diphenhydr/Alum/Mg/Simeth (Mag&Al/Sim/Diphenhyd/Lidocaine 10 Ml Oral.Susp) 10 ml PO QID PRN PRN Reason: sores Morphine Sulfate (Morphine Sulfate 4 Mg/Ml Cartridge) 4 mg IVPUSH Q3H PRN; Protocol PRN Reason: Pain, Moderate(Pain Scale 4-6) Last Admin: 09/30/24 13:32 Dose: 4 mg Documented By: NEEMA Nifedipine (Nifedipine Er 30 Mg Tab.Er.24) 30 mg PO DAILY [facility] Last Admin: 09/30/24 08:10 Dose: Not Given Documented By: NEEMA Non-Admin Reason: NPO Non-Formulary Medication (Lenvatinib [Lenvima]) 20 mg PO DAILY [facility] Ondansetron HCl (Ondansetron Hcl 4 Mg/2 Ml Vial) 4 mg IVPUSH Q8H PRN PRN Reason: Nausea and Vomiting Sodium Chloride (0.9 % Sodium Chloride Flush 3 Ml Syringe) 3 ml IVFLUSH QSHIFT [facility] Last Admin: 09/30/24 08:10 Dose: Not Given Documented By: NEEMA Non-Admin Reason: IV Running Vitamin D (Cholecalciferol (Vitamin D3) 25 Mcg Tablet) 50 mcg PO DAILY [facility] Last Admin: 09/30/24 08:10 Dose: Not Given Documented By: NEEMA Non-Admin Reason: NPO Labs 09/27/24 17:10 09/27/24 17:10 Labs: Laboratory Results - last 24 hr 09/29/24 09/30/24 09/30/24 17:45 00:37 06:22 POC Glucose 101 105 104 09/30/24 09/30/24 07:21 12:19 POC Glucose 106 86 Assessment and Plan (1) Metastatic renal cell carcinoma to lung: Status: Acute Plan 69-year-old female with widely metastatic renal cell carcinoma admitted to physician observation secondary to weakness. Was admitted to physician observation and during that time a rapid response was called for change in mental status and minimally responsiveness. Patient seen examined. Chest x-ray so far unremarkable. Point of care 52 given 1 amp of D50 with good results. Remaining workup pending 1. Widely metastatic renal cell carcinoma -NPO -D5 LR at 100 cc an hour -morphine 4 mg IV q.3 hours p.r.n. pain -hold Eliquis... Prophylactic Lovenox -family decided DNR DNI. . . We will discuss comfort measures likely implement in a.m. 2. Hypoglycemia. .. Likely related to poor p.o. intake -continue D5 LR at 100 cc an hour -follow up point cares q.6 hours Lovenox Full Code Discussed with De; moving towards comfort care once he can discuss with family. Made DNR DNI in the meantime Quality Stroke Does the patient have a stroke diagnosis?: No VTE Prior VTE?: No VTE Risk Level:: Medical - moderate - high VTE Device Contraindication: Treatment Not Indicated VTE Drug Contraindication: N/A - Med Ordered
[2024-09-30] MEDS: Enoxaparin Sodium 40 MG/0.4 ML SYRINGE SUBCUT (18:02)
[2024-09-30 18:33] LABS: Glucose, Whole Blood 99 mg/dL (60-115)
[2024-09-30 23:42] LABS: Glucose, Whole Blood 103 mg/dL (60-115)
[2024-10-01] VITALS (8 sets, daily range): BP systolic 134–154; BP diastolic 64–99; PULSE 99–122; RESP 16–20; TEMP 36.3–37.1; O2SAT 95–99
[2024-10-01] MEDS: 0.9 % Sodium Chloride Flush 3 ML SYRINGE IVFLUSH ×2 (01:26→20:51)
[2024-10-01] MEDS: Dextrose 5 % and Lactated Ring 1,000 ML 100 ML IVCONT ×2 (01:26→10:50)
[2024-10-01] MEDS: Morphine Sulfate 4 MG/ML CARTRIDGE IVPUSH ×2 (01:47→05:30)
[2024-10-01 06:51] LABS: Glucose, Whole Blood 108 mg/dL (60-115)
--- NOTE | 2024-10-01 07:36 | P.CDIM_ITS ---
PROVIDER RESPONSE TEXT: To clarify, the appropriate diagnosis supported by the clinical indicators: Metabolic QUERY TEXT: PHYSICIAN'S DOCUMENTATION REQUEST Date of Query: 09/30/2024 09:58 AM EST Patient Name: Elina Stewart Admit Date: 09/27/2024 Dear Adryan Umanzor DO, A review of the medical record indicates additional documentation may be needed. Please review below and update the documentation accordingly. Clinical Indicators: Progress notes within the Assessment and Plan list 09/28 & 09/29: Metabolic encephalopathy Change in mental status, hypoglycemic, metastatic renal cancer. Based on the above, please further specify, in the Progress Notes, the documented metabolic encephalo linnea within the body of the written Plan: Metabolic Toxic Toxic metabolic Hypertensive Other (explain) Clinically unable to determine (explain) Thank you, Toma Bernal, CCS, CDIS Use of terms such as suspected, likely, concern for, or probable (associated with a specific diagnosi s that is being evaluated, monitored, or treated as if it exists) are acceptable and can be coded in the inpatient se tting, when documented at the time of discharge. Please use your independent medical judgment in providing your response. THIS QUERY IS PART OF THE PERMANENT MEDICAL RECORD
[2024-10-01 11:25] LABS: Glucose, Whole Blood 112 mg/dL (60-115)
--- NOTE | 2024-10-01 11:30 | MHC.CLN ---
F/U PT IS MODERATELY MALNOURISHED PT WITH MILDLY DEPLETED SUBCUTANEOUS FAT AND MUSCLE MASS WITH BMI 18 WITH CHRONIC POOR PO INTAKE. PT CURRENTLY NONVERBAL AND UNABLE TO SWALLOW PO-SEE FULL CLINICAL NUTRITION ASSESSMENT DATED 09/30/24 UNDERGROUND ROOF BOLTER DETERMINATION IN PROCESS PER MD (POSSIBLY TODAY) DAY 4 NPO DIET-CAN MAKE PT FEED FROM FLOOR DIET WHEN TRANSITIONS TO UNDERGROUND ROOF BOLTER KITCHEN TO SUPPLY COFFEE CART IF NEEDED FOR FAMILY WILL FOLLOW WITH TEAM AND PROVIDE SUPPORT NEEDED PRIMARY GOAL TO FOCUS ON COMFORT
[2024-10-01] MEDS: ondansetron HCL 4 MG/2 ML VIAL IVPUSH ×2 (12:29→18:00)
--- NOTE | 2024-10-01 13:22 | MHC.SPEECHCO ---
Goals of care discussion pending. TEACHING PASTOR monitoring.
--- NOTE | 2024-10-01 13:43 | HO.PM.IMPN ---
Subjective Subjective Date of Service: 10/01/24 Interval History: More awake this a.m. however verbally aggressive with and staff Review of Systems Unable to obtain Physical Exam Vital Signs: Vital Signs: Last Vital Signs Temp 98.8 F 10/01/24 11:05 Pulse 122 H 10/01/24 11:05 Resp 18 10/01/24 11:05 BP 151/94 H 10/01/24 11:05 Pulse Ox 95 10/01/24 11:05 O2 Del Method Nasal Cannula 10/01/24 11:05 O2 Flow Rate 3 10/01/24 11:05 Oxygen Flow Rate 15 09/27/24 16:05 BMI result Body Mass Index 18.0 Const: Other: Somnolent but arousable. Complaining of diffuse severe pain.. Cachectic Resp: Other: Clear to auscultation bilaterally no rales rhonchi or wheezes Cardio: Other: No S4; positive S1-S2; no S3 murmurs rubs or gallops GI: Other: Soft nontender nondistended with normoactive bowel sounds Extrem: Other: No edema bilaterally Objective Data Active Medications Acetaminophen (Acetaminophen 325 Mg Tablet) 650 mg PO Q6H PRN PRN Reason: Pain, Mild 1-3,fever,headache Amitriptyline HCl (Amitriptyline Hcl 25 Mg Tablet) 75 mg PO DAILY [facility] Last Admin: 10/01/24 08:48 Dose: Not Given Documented By: PILY Non-Admin Reason: NPO Atorvastatin Calcium (Atorvastatin Calcium 10 Mg Tablet) 10 mg PO DAILY [facility] Last Admin: 10/01/24 08:48 Dose: Not Given Documented By: PILY Non-Admin Reason: NPO Bupropion HCl (Bupropion Hcl Xl 150 Mg Tab.Er.24h) 150 mg PO DAILY [facility] Last Admin: 10/01/24 08:49 Dose: Not Given Documented By: PILY Non-Admin Reason: NPO Clonazepam (Clonazepam 1 Mg Tablet) 1 mg PO BEDTIME [facility] Last Admin: 09/30/24 22:20 Dose: Not Given Documented By: TERE Non-Admin Reason: Patient Condition Contraindication Enoxaparin Sodium (Enoxaparin Sodium 40 Mg/0.4 Ml Syringe) 40 mg SUBCUT Q24H [facility] Last Admin: 09/30/24 18:02 Dose: 40 mg Documented By: NEEMA Gabapentin (Gabapentin 400 Mg Capsule) 400 mg PO TID [facility] Last Admin: 10/01/24 11:38 Dose: Not Given Documented By: PILY Non-Admin Reason: NPO Dextrose (D10) 250 mls @ 750 mls/hr IV Q15M PRN PRN Reason: per Hypoglycemia Standing Ord. Dextrose/Lactated Ringer's (D5lr) 1,000 mls @ 100 mls/hr IVCONT .Q10H [facility] Last Admin: 10/01/24 10:50 Dose: 100 mls/hr Documented By: PILY Levothyroxine Sodium (Levothyroxine Sodium 25 Mcg Tablet) 25 mcg PO DAILY@0600 [facility] Last Admin: 10/01/24 04:31 Dose: Not Given Documented By: TERE Non-Admin Reason: Inability to swallow Lidocaine HCl (Lidocaine Hcl Viscous 2 % 15 Ml Solution) 1 ml MUCOUS MEM QID PRN PRN Reason: mouth sores Lidocaine/Diphenhydr/Alum/Mg/Simeth (Mag&Al/Sim/Diphenhyd/Lidocaine 10 Ml Oral.Susp) 10 ml PO QID PRN PRN Reason: sores Morphine Sulfate (Morphine Sulfate 4 Mg/Ml Cartridge) 4 mg IVPUSH Q3H PRN; Protocol PRN Reason: Pain, Moderate(Pain Scale 4-6) Last Admin: 10/01/24 05:30 Dose: 4 mg Documented By: TERE Nifedipine (Nifedipine Er 30 Mg Tab.Er.24) 30 mg PO DAILY [facility] Last Admin: 10/01/24 08:49 Dose: Not Given Documented By: PILY Non-Admin Reason: NPO Non-Formulary Medication (Lenvatinib [Lenvima]) 20 mg PO DAILY [facility] Ondansetron HCl (Ondansetron Hcl 4 Mg/2 Ml Vial) 4 mg IVPUSH Q8H PRN PRN Reason: Nausea and Vomiting Last Admin: 10/01/24 12:29 Dose: 4 mg Documented By: PILY Sodium Chloride (0.9 % Sodium Chloride Flush 3 Ml Syringe) 3 ml IVFLUSH QSHIFT [facility] Last Admin: 10/01/24 08:48 Dose: Not Given Documented By: PILY Non-Admin Reason: IV Running Vitamin D (Cholecalciferol (Vitamin D3) 25 Mcg Tablet) 50 mcg PO DAILY [facility] Last Admin: 10/01/24 08:49 Dose: Not Given Documented By: PILY Non-Admin Reason: NPO Labs 09/27/24 17:10 09/27/24 17:10 Labs: Laboratory Results - last 24 hr 09/30/24 09/30/24 10/01/24 18:29 23:37 06:28 POC Glucose 99 103 108 10/01/24 11:08 POC Glucose 112 Assessment and Plan (1) Metastatic renal cell carcinoma to lung: Status: Acute Plan 69-year-old female with widely metastatic renal cell carcinoma admitted to physician observation secondary to weakness. Was admitted to physician observation and during that time a rapid response was called for change in mental status and minimally responsiveness. Patient seen examined. Chest x-ray so far unremarkable. Point of care 52 given 1 amp of D50 with good results. Remaining workup pending 1. Widely metastatic renal cell carcinoma -NPO.. More alert but still confused. Unwilling to repeat swallow -D5 LR at 100 cc an hour -morphine 4 mg IV q.3 hours p.r.n. pain -hold Eliquis... Prophylactic Lovenox -family decided DNR DNI. . . Now that patient has become more alert family rethinking plan 2. Hypoglycemia. .. Likely related to poor p.o. intake -continue D5 LR at 100 cc an hour -follow up point cares q.6 hours Lovenox Full Code Discussed with De; moving towards comfort care once he can discuss with family. Made DNR DNI in the meantime Quality Stroke Does the patient have a stroke diagnosis?: No VTE Prior VTE?: No VTE Risk Level:: Medical - moderate - high VTE Device Contraindication: Treatment Not Indicated VTE Drug Contraindication: N/A - Med Ordered
[2024-10-01] MEDS: Enoxaparin Sodium 40 MG/0.4 ML SYRINGE SUBCUT (18:03)
[2024-10-01] MEDS: LORazepam 2 MG/ML VIAL 1 MG IVPUSH (20:43)
[2024-10-02] VITALS (7 sets, daily range): BP systolic 107–140; BP diastolic 67–83; PULSE 100–109; RESP 14–20; TEMP 36.3–36.8; O2SAT 96–99
[2024-10-02 00:38] LABS: Glucose, Whole Blood 77 mg/dL (60-115)
[2024-10-02] MEDS: Morphine Sulfate 4 MG/ML CARTRIDGE IVPUSH (01:08)
[2024-10-02 06:14] LABS: Glucose, Whole Blood 63 mg/dL (60-115)
[2024-10-02] MEDS: Dextrose 5 % and Lactated Ring 1,000 ML 100 ML IVCONT (08:11)
[2024-10-02] MEDS: 0.9 % Sodium Chloride Flush 3 ML SYRINGE IVFLUSH ×2 (08:12→17:41)
[2024-10-02 11:34] LABS: Glucose, Whole Blood 113 mg/dL (60-115)
--- NOTE | 2024-10-02 12:08 | MHC.CLN ---
F/U PT IS MODERATELY MALNOURISHED DIET ADVANCED TODAY TO CLEAR LIQUIDS WITH ENSURE CLEAR TID. SUPPLEMENT PROVIDES 720 KCALS, 24 G PROTEIN. PATIENT IS DNR/DNI. NO DECISION ON COMFORT CARE. WILL FOLLOW WITH TEAM AND PROVIDE SUPPORT NEEDED.
--- NOTE | 2024-10-02 14:40 | HO.PM.IMPN ---
Subjective Subjective Date of Service: 10/02/24 Interval History: Patient awake alert, answering questions appropriately, denies pain, no fevers, at bedside feels she is at her baseline. No acute events overnight Seen by speech therapy they recommend clear liquid diet and no by mouth medications. Review of Systems All other system reviewed and are negative Physical Exam Vital Signs: Vital Signs: Last Vital Signs Temp 98.3 F 10/02/24 11:51 Pulse 108 H 10/02/24 11:51 Resp 16 10/02/24 11:51 BP 119/74 10/02/24 11:51 Pulse Ox 96 10/02/24 11:51 O2 Del Method Nasal Cannula 10/02/24 11:51 O2 Flow Rate 3 10/02/24 11:51 Oxygen Flow Rate 15 09/27/24 16:05 BMI result Body Mass Index 18.0 Const: Other: General resting comfortably in no acute distress. Oral cavity no lesions Neck no JVD. CVS regular rate rhythm, Respiratory lungs clear to auscultation, no respiratory distress, no wheeze, no rhonchi. Gastrointestinal abdomen soft, nonntender, bowel sounds audible, no guarding , no rigidity. Extremities no edema. Neuro non focal Skin no rash Objective Data Active Medications Acetaminophen (Acetaminophen 325 Mg Tablet) 650 mg PO Q6H PRN PRN Reason: Pain, Mild 1-3,fever,headache Amitriptyline HCl (Amitriptyline Hcl 25 Mg Tablet) 75 mg PO DAILY [facility] Last Admin: 10/02/24 11:04 Dose: Not Given Documented By: PILY Non-Admin Reason: NPO Atorvastatin Calcium (Atorvastatin Calcium 10 Mg Tablet) 10 mg PO DAILY [facility] Last Admin: 10/02/24 11:04 Dose: Not Given Documented By: PILY Non-Admin Reason: NPO Bupropion HCl (Bupropion Hcl Xl 150 Mg Tab.Er.24h) 150 mg PO DAILY [facility] Last Admin: 10/02/24 11:04 Dose: Not Given Documented By: PILY Non-Admin Reason: NPO Clonazepam (Clonazepam 1 Mg Tablet) 1 mg PO BEDTIME [facility] Last Admin: 10/01/24 20:51 Dose: Not Given Documented By: TERE Non-Admin Reason: inability to swallow Enoxaparin Sodium (Enoxaparin Sodium 40 Mg/0.4 Ml Syringe) 40 mg SUBCUT Q24H [facility] Last Admin: 10/01/24 18:03 Dose: 40 mg Documented By: PILY Gabapentin (Gabapentin 400 Mg Capsule) 400 mg PO TID [facility] Last Admin: 10/02/24 11:04 Dose: Not Given Documented By: PILY Non-Admin Reason: NPO Dextrose (D10) 250 mls @ 750 mls/hr IV Q15M PRN PRN Reason: per Hypoglycemia Standing Ord. Dextrose/Lactated Ringer's (D5lr) 1,000 mls @ 100 mls/hr IVCONT .Q10H [facility] Last Admin: 10/02/24 08:11 Dose: 100 mls/hr Documented By: PILY Levothyroxine Sodium (Levothyroxine Sodium 25 Mcg Tablet) 25 mcg PO DAILY@0600 [facility] Last Admin: 10/02/24 04:57 Dose: Not Given Documented By: TERE Non-Admin Reason: Inability to swallow Lidocaine HCl (Lidocaine Hcl Viscous 2 % 15 Ml Solution) 1 ml MUCOUS MEM QID PRN PRN Reason: mouth sores Lidocaine/Diphenhydr/Alum/Mg/Simeth (Mag&Al/Sim/Diphenhyd/Lidocaine 10 Ml Oral.Susp) 10 ml PO QID PRN PRN Reason: sores Morphine Sulfate (Morphine Sulfate 4 Mg/Ml Cartridge) 4 mg IVPUSH Q3H PRN; Protocol PRN Reason: Pain, Moderate(Pain Scale 4-6) Last Admin: 10/02/24 01:08 Dose: 4 mg Documented By: TERE Nifedipine (Nifedipine Er 30 Mg Tab.Er.24) 30 mg PO DAILY [facility] Last Admin: 10/02/24 11:04 Dose: Not Given Documented By: PILY Non-Admin Reason: NPO Non-Formulary Medication (Lenvatinib [Lenvima]) 20 mg PO DAILY [facility] Ondansetron HCl (Ondansetron Hcl 4 Mg/2 Ml Vial) 4 mg IVPUSH Q8H PRN PRN Reason: Nausea and Vomiting Last Admin: 10/01/24 18:00 Dose: 4 mg Documented By: PILY Sodium Chloride (0.9 % Sodium Chloride Flush 3 Ml Syringe) 3 ml IVFLUSH QSHIFT [facility] Last Admin: 10/02/24 08:12 Dose: 3 ml Documented By: PILY Vitamin D (Cholecalciferol (Vitamin D3) 25 Mcg Tablet) 50 mcg PO DAILY [facility] Last Admin: 10/02/24 11:04 Dose: Not Given Documented By: PILY Non-Admin Reason: NPO Labs 09/27/24 17:10 09/27/24 17:10 Labs: Laboratory Results - last 24 hr 10/02/24 10/02/24 10/02/24 00:34 06:09 11:30 POC Glucose 77 63 113 Microbiology Microbiology Results: Microbiology 09/26/24 12:29 Blood Culture - Final Blood - Venous No growth after 5 days. 09/26/24 12:30 Blood Culture - Final Blood - Venous No growth after 5 days. Assessment and Plan (1) Hypoglycemia: Status: Acute Plan 69-year-old female with widely metastatic renal cell carcinoma admitted to physician observation secondary to weakness. Was admitted to physician observation and during that time a rapid response was called for change in mental status and minimally responsiveness. Patient seen examined. Chest x-ray so far unremarkable. Point of care 52 given 1 amp of D50 with good results. Remaining workup pending 1. Generalized weakness due to metastatic renal cell carcinoma -awake alert -continue D5 LR at 80 cc an hour and IV morphine 4 mg for pain -seen by speech therapy they recommend clear liquid diet -hold Eliquis. Prophylactic Lovenox -family decided DNR DNI. 2. Hypoglycemia. .. Likely related to poor p.o. intake, blood sugar improved -continue D5 LR at 100 cc an hour -follow up point cares q.6 hours 3. Mental health hold all by mouth medications including amitriptyline, bupropion, and gabapentin 4. Hypertension stable blood pressure hold nifedipine 5. Hypothyroidism will switch to IV levothyroxine 6. Acute metabolic encephalopathy resolving due to hypoglycemia 7. Moderate malnutrition continue supplements dvt : Lovenox 40mg DNR DNI Quality Stroke Does the patient have a stroke diagnosis?: No VTE Prior VTE?: No VTE Risk Level:: Medical - moderate - high VTE Device Contraindication: Treatment Not Indicated VTE Drug Contraindication: N/A - Med Ordered
--- NOTE | 2024-10-02 16:04 | MHC.SL.SWA ---
Speech Pathologist Impression: Moderate to significant dysphagia in setting of worsening cognition Risk of Aspiration Due to: Medically Fragile Neurological Condition Reduced Cognition Dysphasia Diet Status: Due to her confusion, poor po intake, poor independence with feeding, recommend patient have thin liquids, straws ok. Recc no PO meds. Liquid Consistency and Strategies for Safe Swallow: Liquid Intake Recommendation: Thin Liquid Intake Strategies: Solid Food Consistency: Dietary Recommendations: clear liquids Oral Medication Intake: NPO Please contact the pharmacy regarding appropriate crushable or liquid drug formulations that are available whenever modified delivery is recommended. Compensatory Strategies and Precautions to be Taken for Safe Swallow: Sitting Upright (90 deg) Liquids from Straw Rate of Ingestion Change Supervision While Eating and Drinking for Safe Swallow: Total Supervision (1:1) Foods to Avoid: Solids requiring chewing/manipulation Swallowing Recommended Treatments: Compens. Strategy Educat. Recommendation for Speech: Pt remains at high risk for aspiration in presence of cognitive impairments. Education provided to pt spouse on recc and prognosis for pt to safely resume PO intake and sufficiently meet nutritional needs. Pt expressed his belief that pt will improve and be able to eat again, though he reported her intake had been reduced and she was observed at home to bite on straw when fluids encouraged/provided. Pt cognition remains significantly reduced, thus interferring with adequate attention and processing necessary for safe/efficient PO tolerance. MD working closely with family in determining POC, ? ENVIRONMENTAL HEALTH SAFETY MANAGER d/t severity of pt condition. Comment: Frequency/Duration: Date Range for Service Req: Timeline to reassess: Internet Sales Associate Clinican/Clinical Fellow: No Supervisory Statement: I have reviewed and agree with the student/clinical fellow's documentation: N/A Speech Language Pathologist: Marilyn Hawley M.S., CCC-BACKHAUL DRIVER
[2024-10-02] MEDS: Enoxaparin Sodium 40 MG/0.4 ML SYRINGE SUBCUT (17:39)
[2024-10-02] MEDS: Dextrose 5 % and Lactated Ring 1,000 ML 80 ML IVCONT (17:43)
[2024-10-02 18:36] LABS: Glucose, Whole Blood 119 mg/dL (60-115)
[2024-10-02] MEDS: LORazepam 2 MG/ML VIAL 0.25 MG IVPUSH (20:33)
[2024-10-02] MEDS: Gabapentin 400 MG CAPSULE PO (20:43)
[2024-10-03] VITALS: BP 110/76; PULSE 95; RESP 18; TEMP 36.7; O2SAT 95
[2024-10-03 02:38] LABS: Glucose, Whole Blood 125 mg/dL (60-115)
[2024-10-03 04:00] VITALS: BP 152/84; PULSE 83; RESP 18; TEMP 36.7; O2SAT 96
[2024-10-03] MEDS: Levothyroxine Sodium 100 MCG/5 ML VIAL 12.5 MCG IVPUSH (05:32)
[2024-10-03] MEDS: Dextrose 5 % and Lactated Ring 1,000 ML 80 ML IVCONT ×2 (05:54→17:48)
[2024-10-03 06:00] LABS: Glucose, Whole Blood 92 mg/dL (60-115)
[2024-10-03 07:46] VITALS: BP 124/89; PULSE 86; RESP 19; TEMP 36.4; O2SAT 100
[2024-10-03] MEDS: 0.9 % Sodium Chloride Flush 3 ML SYRINGE IVFLUSH (09:57)
[2024-10-03 11:05] LABS: Glucose, Whole Blood 95 mg/dL (60-115)
[2024-10-03 11:13] VITALS: BP 134/90; PULSE 124; RESP 19; TEMP 36.4; O2SAT 96
--- NOTE | 2024-10-03 11:14 | HO.PM.IMPN ---
Subjective Subjective Date of Service: 10/03/24 Interval History: Patient more awake and alert, no behavioral issues since yesterday at bedside feels she is at baseline with history of forgetfulness Tolerating clear liquid diet, no mouth pain, no cough, no lightheadedness, no dizziness, no fevers, no acute events overnight. Review of Systems Unable to do detailed review of system due to mental status Physical Exam Vital Signs: Vital Signs: Last Vital Signs Temp 97.6 F 10/03/24 11:13 Pulse 124 H 10/03/24 11:13 Resp 19 10/03/24 11:13 BP 134/90 H 10/03/24 11:13 Pulse Ox 96 10/03/24 11:13 O2 Del Method Room Air 10/03/24 11:13 O2 Flow Rate 3 10/03/24 04:00 Oxygen Flow Rate 15 09/27/24 16:05 BMI result Body Mass Index 18.0 Const: Other: General resting comfortably in no acute distress. Oral cavity no lesions Neck no JVD. CVS regular rate rhythm, Respiratory lungs clear to auscultation, no respiratory distress, no wheeze, no rhonchi. Gastrointestinal abdomen soft, non tender, bowel sounds audible, no guarding , no rigidity. Extremities no edema. Neuro non focal , verbalizing nonsensical Skin no rash Objective Data Active Medications Acetaminophen (Acetaminophen 325 Mg Tablet) 650 mg PO Q6H PRN PRN Reason: Pain, Mild 1-3,fever,headache Amitriptyline HCl (Amitriptyline Hcl 25 Mg Tablet) 75 mg PO DAILY [facility] Last Admin: 10/03/24 09:03 Dose: Not Given Documented By: JUANPABLO Non-Admin Reason: NPO Atorvastatin Calcium (Atorvastatin Calcium 10 Mg Tablet) 10 mg PO DAILY [facility] Last Admin: 10/03/24 09:03 Dose: Not Given Documented By: JUANPABLO Non-Admin Reason: NPO Bupropion HCl (Bupropion Hcl Xl 150 Mg Tab.Er.24h) 150 mg PO DAILY [facility] Last Admin: 10/03/24 09:04 Dose: Not Given Documented By: JUANPABLO Non-Admin Reason: NPO Enoxaparin Sodium (Enoxaparin Sodium 40 Mg/0.4 Ml Syringe) 40 mg SUBCUT Q24H [facility] Last Admin: 10/02/24 17:39 Dose: 40 mg Documented By: PILY Gabapentin (Gabapentin 400 Mg Capsule) 400 mg PO TID [facility] Last Admin: 10/03/24 09:04 Dose: Not Given Documented By: JUANPABLO Non-Admin Reason: NPO Dextrose (D10) 250 mls @ 750 mls/hr IV Q15M PRN PRN Reason: per Hypoglycemia Standing Ord. Dextrose/Lactated Ringer's (D5lr) 1,000 mls @ 80 mls/hr IVCONT .[id number] [facility] Last Admin: 10/03/24 05:54 Dose: 80 mls/hr Documented By: CALI Levothyroxine Sodium (Levothyroxine Sodium 100 Mcg/5 Ml Vial) 12.5 mcg IVPUSH DAILY@0600 [facility] Last Admin: 10/03/24 05:32 Dose: 12.5 mcg Documented By: CALI Lidocaine HCl (Lidocaine Hcl Viscous 2 % 15 Ml Solution) 1 ml MUCOUS MEM QID PRN PRN Reason: mouth sores Lidocaine/Diphenhydr/Alum/Mg/Simeth (Mag&Al/Sim/Diphenhyd/Lidocaine 10 Ml Oral.Susp) 10 ml PO QID PRN PRN Reason: sores Lorazepam (Lorazepam 2 Mg/Ml Vial) 0.25 mg IVPUSH Q12H PRN PRN Reason: anxiety/restlessness Last Admin: 10/02/24 20:33 Dose: 0.25 mg Documented By: CALI Morphine Sulfate (Morphine Sulfate 4 Mg/Ml Cartridge) 4 mg IVPUSH Q3H PRN; Protocol PRN Reason: Pain, Moderate(Pain Scale 4-6) Last Admin: 10/02/24 01:08 Dose: 4 mg Documented By: TERE Nifedipine (Nifedipine Er 30 Mg Tab.Er.24) 30 mg PO DAILY [facility] Last Admin: 10/03/24 09:04 Dose: Not Given Documented By: JUANPABLO Non-Admin Reason: NPO Non-Formulary Medication (Lenvatinib [Lenvima]) 20 mg PO DAILY [facility] Ondansetron HCl (Ondansetron Hcl 4 Mg/2 Ml Vial) 4 mg IVPUSH Q8H PRN PRN Reason: Nausea and Vomiting Last Admin: 10/01/24 18:00 Dose: 4 mg Documented By: PILY Sodium Chloride (0.9 % Sodium Chloride Flush 3 Ml Syringe) 3 ml IVFLUSH QSHIFT [facility] Last Admin: 10/03/24 09:57 Dose: 3 ml Documented By: JUANPABLO Vitamin D (Cholecalciferol (Vitamin D3) 25 Mcg Tablet) 50 mcg PO DAILY [facility] Last Admin: 10/03/24 09:04 Dose: Not Given Documented By: JUANPABLO Non-Admin Reason: NPO Labs 09/27/24 17:10 09/27/24 17:10 Labs: Laboratory Results - last 24 hr 10/02/24 10/02/24 10/02/24 11:30 18:33 20:42 POC Glucose 113 119 H 125 H 10/03/24 10/03/24 05:56 11:01 POC Glucose 92 95 Assessment and Plan (1) Acute metabolic encephalopathy: Status: Acute (2) Hypoglycemia: Status: Acute (3) Weakness: Status: Acute Plan 69-year-old female with widely metastatic renal cell carcinoma admitted to physician observation secondary to weakness. Was admitted to physician observation and during that time a rapid response was called for change in mental status and minimally responsiveness. Patient seen examined. Chest x-ray so far unremarkable. Point of care 52 given 1 amp of D50 with good results. Remaining workup pending 1. Generalized weakness due to metastatic renal cell carcinoma -awake alert -continue D5 LR at 80 cc an hour and IV morphine 4 mg for pain -seen by speech therapy they recommend clear liquid diet , no pills, speech will reasses -hold Eliquis. Prophylactic Lovenox -family decided DNR DNI. -re-evaluation with physical therapy since patient more awake alert, wishes to take her home if possible versus rehab 2. Hypoglycemia. .. Likely related to poor p.o. intake, blood sugar improved -continue D5 LR at 100 cc an hour -follow up point cares q.6 hours 3. Mental health hold all by mouth medications including amitriptyline, bupropion, and gabapentin 4. Hypertension stable blood pressure hold nifedipine 5. Hypothyroidism will switch to IV levothyroxine 6. Acute metabolic encephalopathy resolved likely was due to hypoglycemia 7. Moderate malnutrition continue supplements dvt : Lovenox 40mg DNR DNI Quality Stroke Does the patient have a stroke diagnosis?: No VTE Prior VTE?: No VTE Risk Level:: Medical - moderate - high VTE Device Contraindication: Treatment Not Indicated VTE Drug Contraindication: N/A - Med Ordered
--- NOTE | 2024-10-03 13:45 | MHC.SL.SWA ---
Speech Pathologist Impression: Moderate dysphagia in setting of cognitive limitations Risk of Aspiration Due to: Medically Fragile Neurological Condition Reduced Cognition Dysphasia Diet Status: Due to her confusion, poor po intake, poor independence with feeding, recommend clear liquid diet Liquid Consistency and Strategies for Safe Swallow: Liquid Intake Recommendation: Thin Liquid Intake Strategies: Solid Food Consistency: Dietary Recommendations: Clear liquid diet Additional Modifications to Solid Foods: Oral Medication Intake: Crushed with Puree Please contact the pharmacy regarding appropriate crushable or liquid drug formulations that are available whenever modified delivery is recommended. Compensatory Strategies and Precautions to be Taken for Safe Swallow: Sitting Upright (90 deg) Liquids from Straw Rate of Ingestion Change Supervision While Eating and Drinking for Safe Swallow: Total Supervision (1:1) Foods to Avoid: Solids requiring mastication. Swallowing Recommended Treatments: Compens. Strategy Educat. Recommendation for Speech: Comment: Pt seen for dysphagia treatment, pt and son at bedside. Pt very confused but conversant. Pt needed maximum cueing to participate in bedside swallow. Pt tolerated thin liquids by straw sip without overt s/s of aspiration, adequate oropharyngeal coordination considered to be WFL for reflexive swallow. Trials of solids attempted but pt processing situation in error, expressing that she needed to 'remember how to do this' and speaking about an object other than the cookie she was holding. Pt unable to follow simple cues to initiate intake of solids. Education provided by PRESCRIPTIONIST regarding negative influence of cognitive deficits in routine task understanding. Pt showed adequate perception of taking liquids by straw, but was not perceiving that she was holding food items, even with multimodal cueing. PRESCRIPTIONIST continues to follow, diet remains clear liquid. Meds crushed in puree considered appropriate advance. Frequency/Duration: Date Range for Service Req: Timeline to reassess: Power Plant Operations Manager Clinican/Clinical Fellow: No Supervisory Statement: I have reviewed and agree with the student/clinical fellow's documentation: N/A Speech Language Pathologist: Marilyn Hawley M.S., CCC-PRESCRIPTIONIST
[2024-10-03 15:44] VITALS: BP 117/69; PULSE 98; RESP 16; TEMP 36.4; O2SAT 100
[2024-10-03] MEDS: Enoxaparin Sodium 40 MG/0.4 ML SYRINGE SUBCUT (17:45)
[2024-10-03 18:00] LABS: Glucose, Whole Blood 109 mg/dL (60-115)
[2024-10-03 19:26] VITALS: BP 134/65; PULSE 97; RESP 18; TEMP 36.6; O2SAT 100
[2024-10-04] VITALS (7 sets, daily range): BP systolic 112–160; BP diastolic 63–90; PULSE 76–103; RESP 16–20; TEMP 36.1–36.7; O2SAT 94–100
[2024-10-04 00:27] LABS: Glucose, Whole Blood 152 mg/dL (60-115)
--- NOTE | 2024-10-04 05:05 | PC.NURSE ---
Assumed care of pt at 23:00. See clinical documentation for assessments.
[2024-10-04] MEDS: Levothyroxine Sodium 100 MCG/5 ML VIAL 12.5 MCG IVPUSH (05:56)
[2024-10-04 06:21] LABS: Glucose, Whole Blood 82 mg/dL (60-115)
--- NOTE | 2024-10-04 09:40 | MHC.CM.PN ---
Addendum entered by [facility] 10/04/24 16:01: [facility] may be able to offer the pt a LTC bed, and states they will let us know on Saturday 10/07 if they have a bed to offer her. Addendum entered by [facility] 10/04/24 15:54: Pts /HCP Kwaku asked to speak to this CM. Per his daughter Vanna's request, they would like an MRI or a CT with contrast done before they can decide on the discharge plan, they would like to know if her cancer is spreading or if she has Alzheimer's. Hospitalist updated. Addendum entered by [facility] 10/04/24 10:51: EMR reviewed and per MD rounds, pt is medically cleared for discharge pending safe disposition. This CM met with pt and her /HCP Kwaku present at bedside, per Kwaku they are not able to take care of the pt in her current weakened condition at home. Kwaku states their house is old and small and they cannot accommodate her now, the bathrooms are downstairs, and the bedrooms are upstairs. This CM suggested getting a hospital bed for the downstairs, or getting a bedside commode for upstairs, per Kwaku the hospital bed wont fit downstairs. Kwaku also stated that it looks like a bomb went off in the house , as their daughter is sleeping on the couch in the living room with all of her stuff and takes care of the pts special needs brother. Kwaku would like the pt to go to rehab to get stronger then return home when she can walk. This CM explained that this may be the pts new baseline, and she is not currently not able to participate in PT due to not being able to follow cues, and does not qualify for rehab at this time. This CM discussed PT's recommendation of home with 24/7 care vs LTC with the pt and Kwaku. Kwaku states he thinks she will need LTC, and is hoping we can find a place close by. This CM explained that we can start by looking close by but may need to expand the referral in order to find her a bed, and we cannot guarantee it will be close. Kwaku requested this CM speak to their daughter Vanna about this. This CM placed a call to pts daughter/alt HCP Vanna, voicemail left, awaiting return call. Hospitalist updated. Original Note: This CM met with pt to see if any family available to discuss discharge plans, no family present in room, pt pleasantly confused. This CM placed a call to pts spouse Kwaku and left him a voicemail, awaiting return call.
[2024-10-04] MEDS: Atorvastatin Calcium 10 MG TABLET PO (10:04)
[2024-10-04] MEDS: buPROPion HCl XL 150 MG TAB.ER.24H PO (10:04)
[2024-10-04] MEDS: Gabapentin 300 MG CAPSULE PO ×3 (10:04→21:23)
[2024-10-04] MEDS: Cholecalciferol (Vitamin D3) 25 MCG TABLET 50 MCG PO (10:04)
[2024-10-04] MEDS: Acetaminophen 325 MG TABLET 650 MG PO (10:05)
[2024-10-04] MEDS: Amitriptyline HCl 25 MG TABLET 75 MG PO (10:05)
[2024-10-04] MEDS: 0.9 % Sodium Chloride Flush 3 ML SYRINGE IVFLUSH ×3 (10:05→23:53)
--- NOTE | 2024-10-04 11:23 | P.PNIM_ITS ---
Subjective Subjective Date of Service: 10/04/24 Interval History: Patient remains pleasantly confused, with nonsensical speech Complaining of right shoulder pain and feeling cold. Tolerating clear liquid diet No acute issues overnight. Review of Systems Unable to obtain detailed review of system due to mental status Physical Exam 2 Vital Signs: Vital Signs: Last Vital Signs Temp 97.0 F 10/04/24 07:23 Pulse 76 10/04/24 07:23 Resp 16 10/04/24 07:23 BP 123/81 10/04/24 07:23 Pulse Ox 100 10/04/24 07:23 O2 Del Method Nasal Cannula 10/04/24 07:23 O2 Flow Rate 2.5 10/04/24 07:23 Oxygen Flow Rate 15 09/27/24 16:05 BMI result Body Mass Index 18.0 Const: Other: General resting comfortably in no acute distress. Oral cavity no lesions Neck no JVD. CVS regular rate rhythm, Respiratory lungs clear to auscultation, no respiratory distress, no wheeze, no rhonchi. Gastrointestinal abdomen soft, non tender, bowel sounds audible, no guarding , no rigidity. Extremities no edema. Neuro non focal , verbalizing nonsensical Right shoulder no redness, no swelling, limited range of motion due to pain Skin no rash Objective Data Active Medications Acetaminophen (Acetaminophen 325 Mg Tablet) 650 mg PO Q6H PRN PRN Reason: Pain, Mild 1-3,fever,headache Last Admin: 10/04/24 10:05 Dose: 650 mg Documented By: GÓMEZ Amitriptyline HCl (Amitriptyline Hcl 25 Mg Tablet) 75 mg PO DAILY [facility] Last Admin: 10/04/24 10:05 Dose: 75 mg Documented By: GÓMEZ Atorvastatin Calcium (Atorvastatin Calcium 10 Mg Tablet) 10 mg PO DAILY [facility] Last Admin: 10/04/24 10:04 Dose: 10 mg Documented By: GÓMEZ Bupropion HCl (Bupropion Hcl Xl 150 Mg Tab.Er.24h) 150 mg PO DAILY [facility] Last Admin: 10/04/24 10:04 Dose: 150 mg Documented By: GÓMEZ Enoxaparin Sodium (Enoxaparin Sodium 40 Mg/0.4 Ml Syringe) 40 mg SUBCUT Q24H [facility] Last Admin: 10/03/24 17:45 Dose: 40 mg Documented By: BROB Gabapentin (Gabapentin 300 Mg Capsule) 300 mg PO TID [facility] Last Admin: 10/04/24 10:04 Dose: 300 mg Documented By: GÓMEZ Dextrose (D10) 250 mls @ 750 mls/hr IV Q15M PRN PRN Reason: per Hypoglycemia Standing Ord. Levothyroxine Sodium (Levothyroxine Sodium 25 Mcg Tablet) 25 mcg PO DAILY@0600 [facility] Lidocaine HCl (Lidocaine Hcl Viscous 2 % 15 Ml Solution) 1 ml MUCOUS MEM QID PRN PRN Reason: mouth sores Lidocaine/Diphenhydr/Alum/Mg/Simeth (Mag&Al/Sim/Diphenhyd/Lidocaine 10 Ml Oral.Susp) 10 ml PO QID PRN PRN Reason: sores Non-Formulary Medication (Lenvatinib [Lenvima]) 20 mg PO DAILY [facility] Ondansetron HCl (Ondansetron Hcl 4 Mg/2 Ml Vial) 4 mg IVPUSH Q8H PRN PRN Reason: Nausea and Vomiting Last Admin: 10/01/24 18:00 Dose: 4 mg Documented By: PILY Sodium Chloride (0.9 % Sodium Chloride Flush 3 Ml Syringe) 3 ml IVFLUSH QSHIFT [facility] Last Admin: 10/04/24 10:05 Dose: 3 ml Documented By: GÓMEZ Vitamin D (Cholecalciferol (Vitamin D3) 25 Mcg Tablet) 50 mcg PO DAILY [facility] Last Admin: 10/04/24 10:04 Dose: 50 mcg Documented By: GÓMEZ Labs 09/27/24 17:10 09/27/24 17:10 Labs: Laboratory Results - last 24 hr 10/03/24 10/04/24 10/04/24 17:57 00:21 06:16 POC Glucose 109 152 H 82 Assessment and Plan (1) Acute metabolic encephalopathy: Status: Acute Plan 69-year-old female with widely metastatic renal cell carcinoma admitted to physician observation secondary to weakness. Was admitted to physician observation and during that time a rapid response was called for change in mental status and minimally responsiveness. Patient seen examined. Chest x-ray so far unremarkable. Point of care 52 given 1 amp of D50 with good results. Remaining workup pending 1. Generalized weakness due to metastatic renal cell carcinoma -awake alert, pleasantly confused -tolerating clear liquid diet speech recommend to take medicines crushed in puree, will DC IV fluid, DC IV morphine and Ativan -family decided DNR DNI. -re-evaluation with physical therapy since patient more awake alert, wishes to take her home if possible versus rehab 2. Hypoglycemia. .. Likely related to poor p.o. intake, blood sugar improved -continue D5 LR at 100 cc an hour -follow up point cares q.6 hours 3. Mental health resume home medications including amitriptyline, bupropion, and gabapentin 4. Hypertension stable blood pressure dc nifedipine 5. Hypothyroidism will switch back to po levothyroxine 6. Acute metabolic encephalopathy resolved likely was due to hypoglycemia , now seems to be at baseline as per with ongoing forgetfulness times several months,nl b12 and folate ,tsh 8.[address] head unremarkable 7. Moderate malnutrition continue supplements 8. History of PE will resume Eliquis since able to tolerate meds dvt : Eliquis DNR DNI Seen by Physical therapy they recommend long-term care versus 247 care, unable to provide care at home disability case manager will arrange for safe disposition. Quality Stroke Does the patient have a stroke diagnosis?: No VTE Prior VTE?: No VTE Risk Level:: Medical - moderate - high VTE Device Contraindication: Treatment Not Indicated VTE Drug Contraindication: N/A - Med Ordered
[2024-10-04 12:05] LABS: Glucose, Whole Blood 95 mg/dL (60-115)
--- NOTE | 2024-10-04 12:55 | MHC.SL.DTX ---
Dysphagia Diet modifications: Last documented Solid diet consistencies: Clear liquid diet Last documented Liquid consistency: Thin Changes made to current diet?: Yes Liquid Consistency and Strategies: Liquid Intake Recommendation: Thin Compensatory Strategies for Safe Swallow: Compensatory Strategies for Safe Swallow(b): Sitting Upright (90 deg) Liquids from Straw Rate of Ingestion Change Solid Food Consistency: Dietary Recommendations: Pureed (NDD1) Additional Modifications to Solids: EMPLOYEE BENEFITS COORDINATOR recommending Ground/Mech Altered Solids (NDD2) and Thin Liquids. Meds Crushed or Whole in Puree, as tolerated. She requires 1:1 Assistance at this time. She can be encourage to self-feed under supervision if mental status improves. Her primary barrier to nutrition at this time is her ability to access food due to suspected underlying dementia exacerbated by acute UTI. Oral Medication Intake: Crushed with Puree Strategies and Precautions to be Taken for Safe Swallow: Sitting Upright (90 deg) Liquids from Straw Rate of Ingestion Change Supervision While Eating and/Drinking: Total Supervision (1:1) Foods to Avoid: Solids requiring mastication. Swallowing Recommended Treatments: Compens. Strategy E Level of Impact on: Daily activities: Severe Interpersonal interactions: Severe Education: None Employment: None Community: Severe Prognosis for Improvement: Poor Recommendation for Speech: Timeline to reassess: PRN Treatment: Pt remains on a clear liquid diet which will negatively impact her disposition if going to a facility. She agrees to trial Puree Solid (Pudding) which she tolerates with no overt s/s of aspiration and adequate oral clearance. She tolerated follow-up sips of Thin Liquids via Straw with no overt s/s of aspiration. EMPLOYEE BENEFITS COORDINATOR recommending upgrade to Puree Solids (NDD1) and Thin Liquids. Pt is advised to continue ordering additional liquids and ensure clear. reports that, she doesn't like the Hospital food . EMPLOYEE BENEFITS COORDINATOR reinforced the reasoning for upgrading her to which he verbalized understanding. EMPLOYEE BENEFITS COORDINATOR will follow-up x1 to ensure tolerance of upgrade. Electrotyper Clinican/Clinical Fellow: No Supervisory Statement: I have reviewed and agree with the student/clinical fellow's documentation: N/A Speech Language Pathologist: Norberto Fang M.A., [facility]-EMPLOYEE BENEFITS COORDINATOR
--- NOTE | 2024-10-04 13:37 | MHC.CLN ---
F/U PT IS MODERATELY MALNOURISHED FAMILY DECIDED ON DNR/DNI PO INTAKE 25% X 1 MEAL DIET ADVANCED TO CLEAR LIQUIDS WITH ENSURE CLEAR TID SUPPLEMENT PROVIDES 720 KCALS, 24 G PROTEIN FOOD PROCESSOR FOLLOWING AND RECOMMENDED PUREED DIET FOLLOWING WITH TEAM
[2024-10-04] MEDS: Apixaban 5 MG TABLET PO ×2 (13:54→21:23)
[2024-10-04 17:46] LABS: Glucose, Whole Blood 72 mg/dL (60-115)
[2024-10-04 23:47] LABS: Glucose, Whole Blood 80 mg/dL (60-115)
[2024-10-05] VITALS (7 sets, daily range): BP systolic 118–132; BP diastolic 58–74; PULSE 85–97; RESP 18–20; TEMP 36.1–36.4; O2SAT 93–100
[2024-10-05] MEDS: Levothyroxine Sodium 25 MCG TABLET PO (05:42)
[2024-10-05 06:51] LABS: Glucose, Whole Blood 142 mg/dL (60-115)
[2024-10-05] MEDS: Amitriptyline HCl 25 MG TABLET 75 MG PO (08:41)
[2024-10-05] MEDS: buPROPion HCl XL 150 MG TAB.ER.24H PO (08:41)
[2024-10-05] MEDS: Atorvastatin Calcium 10 MG TABLET PO (08:41)
[2024-10-05] MEDS: Cholecalciferol (Vitamin D3) 25 MCG TABLET 50 MCG PO (08:41)
[2024-10-05] MEDS: Apixaban 5 MG TABLET PO ×2 (08:41→19:46)
[2024-10-05] MEDS: Gabapentin 300 MG CAPSULE PO ×3 (08:42→19:46)
[2024-10-05] MEDS: Lidocaine 4 % Patch ADH..PATCH 1 PATCH TRANSDERMA (08:46)
[2024-10-05] MEDS: 0.9 % Sodium Chloride Flush 3 ML SYRINGE IVFLUSH ×3 (08:49→19:46)
--- NOTE | 2024-10-05 12:08 | HO.PM.IMPN ---
Subjective Subjective Date of Service: 10/05/24 Interval History: Being followed for acute encephalopathy/hypoglycemia and generalized weakness Offers no acute complaints resting comfortably, currently on pureed diet. Review of Systems Unable to obtain due to mental status Physical Exam Vital Signs: Vital Signs: Last Vital Signs Temp 97.2 F 10/05/24 08:00 Pulse 97 10/05/24 08:00 Resp 18 10/05/24 08:00 BP 121/67 10/05/24 08:00 Pulse Ox 94 10/05/24 08:00 O2 Del Method Room Air 10/05/24 08:00 O2 Flow Rate 3 10/04/24 20:00 Oxygen Flow Rate 15 09/27/24 16:05 BMI result Body Mass Index 18.0 Const: Other: General resting comfortably in no acute distress. Oral cavity no lesions Neck no JVD. CVS regular rate rhythm, Respiratory lungs clear to auscultation, no respiratory distress, no wheeze, no rhonchi. Gastrointestinal abdomen soft, non tender, bowel sounds audible, no guarding , no rigidity. Extremities no edema. Neuro non focal , verbalizing nonsensical Skin no rash Objective Data Active Medications Acetaminophen (Acetaminophen 325 Mg Tablet) 650 mg PO Q6H PRN PRN Reason: Pain, Mild 1-3,fever,headache Last Admin: 10/04/24 10:05 Dose: 650 mg Documented By: ERVIN-OSVALDO Amitriptyline HCl (Amitriptyline Hcl 25 Mg Tablet) 75 mg PO DAILY [facility] Last Admin: 10/05/24 08:41 Dose: 75 mg Documented By: PODMORP Apixaban (Apixaban 5 Mg Tablet) 5 mg PO BID [facility] Last Admin: 10/05/24 08:41 Dose: 5 mg Documented By: PODMORP Atorvastatin Calcium (Atorvastatin Calcium 10 Mg Tablet) 10 mg PO DAILY [facility] Last Admin: 10/05/24 08:41 Dose: 10 mg Documented By: PODMORP Bupropion HCl (Bupropion Hcl Xl 150 Mg Tab.Er.24h) 150 mg PO DAILY [facility] Last Admin: 10/05/24 08:41 Dose: 150 mg Documented By: PODMORP Gabapentin (Gabapentin 300 Mg Capsule) 300 mg PO TID [facility] Last Admin: 10/05/24 08:42 Dose: 300 mg Documented By: PODMORP Dextrose (D10) 250 mls @ 750 mls/hr IV Q15M PRN PRN Reason: per Hypoglycemia Standing Ord. Levothyroxine Sodium (Levothyroxine Sodium 25 Mcg Tablet) 25 mcg PO DAILY@0600 [facility] Last Admin: 10/05/24 05:42 Dose: 25 mcg Documented By: TUMASY Lidocaine (Lidocaine 4 % Patch Adh..Patch) 1 patch TRANSDERMA DAILY [facility]; Protocol Last Admin: 10/05/24 08:46 Dose: 1 patch Documented By: PODMORP Lidocaine HCl (Lidocaine Hcl Viscous 2 % 15 Ml Solution) 1 ml MUCOUS MEM QID PRN PRN Reason: mouth sores Lidocaine/Diphenhydr/Alum/Mg/Simeth (Mag&Al/Sim/Diphenhyd/Lidocaine 10 Ml Oral.Susp) 10 ml PO QID PRN PRN Reason: sores Non-Formulary Medication (Lenvatinib [Lenvima]) 20 mg PO DAILY [facility] Ondansetron HCl (Ondansetron Hcl 4 Mg/2 Ml Vial) 4 mg IVPUSH Q8H PRN PRN Reason: Nausea and Vomiting Last Admin: 10/01/24 18:00 Dose: 4 mg Documented By: FOSTEKR Sodium Chloride (0.9 % Sodium Chloride Flush 3 Ml Syringe) 3 ml IVFLUSH QSHIFT [facility] Last Admin: 10/05/24 08:49 Dose: 3 ml Documented By: PODMORP Vitamin D (Cholecalciferol (Vitamin D3) 25 Mcg Tablet) 50 mcg PO DAILY [facility] Last Admin: 10/05/24 08:41 Dose: 50 mcg Documented By: PODMORP Labs 09/27/24 17:10 09/27/24 17:10 Labs: Laboratory Results - last 24 hr 10/04/24 10/04/24 10/05/24 17:41 23:43 06:48 POC Glucose 72 80 142 H Assessment and Plan (1) Acute metabolic encephalopathy: Status: Acute (2) Weakness: Status: Acute (3) Hypoglycemia: Status: Acute Plan 69-year-old female with widely metastatic renal cell carcinoma admitted to physician observation secondary to weakness. Was admitted to physician observation and during that time a rapid response was called for change in mental status and minimally responsiveness. Patient seen examined. Chest x-ray so far unremarkable. Point of care 52 given 1 amp of D50 with good results. Remaining workup pending 1. Generalized weakness due to metastatic renal cell carcinoma -awake alert, pleasantly confused -tolerating pureed and thin liquid diet speech recommend to take medicines crushed in puree, -family decided DNR DNI. -physical therapy recommend long-term care versus 247 care at home 2. Hypoglycemia. .. Likely related to poor p.o. intake, blood sugar improved and remained stable 3. Mental health continue amitriptyline, bupropion, and gabapentin 4. Hypertension stable blood pressure dc nifedipine 5. Hypothyroidism on po levothyroxine 6. Acute metabolic encephalopathy resolved likely was due to hypoglycemia , now seems to be at baseline as per with ongoing forgetfulness times several months,nl b12 and folate ,tsh 8.[address] head unremarkable Family requesting imaging study to rule out malignant disease in brain case discussed with Dr. Delacruz she recommend CT head with contrast. 7. Moderate malnutrition continue supplements 8. History of PE on Eliquis dvt : Carlotta DNR DNI Seen by Physical therapy they recommend long-term care versus 247 care, unable to provide care at home director of casework will arrange for safe disposition. Quality Stroke Does the patient have a stroke diagnosis?: No VTE Prior VTE?: No VTE Risk Level:: Medical - moderate - high VTE Device Contraindication: Treatment Not Indicated VTE Drug Contraindication: N/A - Med Ordered
[2024-10-05] MEDS: iohexoL 350 MG/ML 100 ML INFUS..BTL IV (13:46)
[2024-10-05 16:57] LABS: Glucose, Whole Blood 90 mg/dL (60-115)
[2024-10-05] MEDS: Acetaminophen 325 MG TABLET 650 MG PO (17:06)
[2024-10-05 20:56] LABS: Glucose, Whole Blood 174 mg/dL (60-115)
[2024-10-06] VITALS (7 sets, daily range): BP systolic 107–140; BP diastolic 65–79; PULSE 79–95; RESP 12–16; TEMP 36.1–37.1; O2SAT 82–97
[2024-10-06 00:40] LABS: Glucose, Whole Blood 84 mg/dL (60-115)
[2024-10-06] MEDS: Levothyroxine Sodium 25 MCG TABLET PO (05:17)
[2024-10-06 06:16] LABS: Glucose, Whole Blood 105 mg/dL (60-115)
[2024-10-06] MEDS: Amitriptyline HCl 25 MG TABLET 75 MG PO (09:00)
[2024-10-06] MEDS: Gabapentin 300 MG CAPSULE PO ×3 (09:00→20:11)
[2024-10-06] MEDS: Atorvastatin Calcium 10 MG TABLET PO (09:00)
[2024-10-06] MEDS: Apixaban 5 MG TABLET PO ×2 (09:00→20:11)
[2024-10-06] MEDS: 0.9 % Sodium Chloride Flush 3 ML SYRINGE IVFLUSH ×3 (09:00→20:11)
[2024-10-06] MEDS: Cholecalciferol (Vitamin D3) 25 MCG TABLET 50 MCG PO (09:00)
[2024-10-06] MEDS: Lidocaine 4 % Patch ADH..PATCH 1 PATCH TRANSDERMA (09:01)
[2024-10-06] MEDS: buPROPion HCl XL 150 MG TAB.ER.24H PO (09:01)
[2024-10-06 11:45] LABS: Glucose, Whole Blood 109 mg/dL (60-115)
--- NOTE | 2024-10-06 12:28 | HO.PM.IMPN ---
Subjective Subjective Date of Service: 10/06/24 Interval History: Being followed for acute encephalopathy with history of metastatic cancer Patient remains pleasantly confused tolerating diet no acute issues overnight. Review of Systems All other system reviewed and are negative. Physical Exam Vital Signs: Vital Signs: Last Vital Signs Temp 98.3 F 10/06/24 11:35 Pulse 95 10/06/24 11:35 Resp 12 10/06/24 11:35 BP 107/67 10/06/24 11:35 Pulse Ox 97 10/06/24 11:35 O2 Del Method Room Air 10/06/24 11:35 O2 Flow Rate 1 10/06/24 03:23 Oxygen Flow Rate 15 09/27/24 16:05 BMI result Body Mass Index 18.0 Const: Other: General resting comfortably in no acute distress. Oral cavity no lesions Neck no JVD. CVS regular rate rhythm, Respiratory lungs clear to auscultation, no respiratory distress, no wheeze, no rhonchi. Gastrointestinal abdomen soft, non tender, bowel sounds audible, no guarding , no rigidity. Extremities no edema. Neuro non focal , verbalizing nonsensical Skin no rash Objective Data Active Medications Acetaminophen (Acetaminophen 325 Mg Tablet) 650 mg PO Q6H PRN PRN Reason: Pain, Mild 1-3,fever,headache Last Admin: 10/05/24 17:06 Dose: 650 mg Documented By: DOLORES Amitriptyline HCl (Amitriptyline Hcl 25 Mg Tablet) 75 mg PO DAILY [facility] Last Admin: 10/06/24 09:00 Dose: 75 mg Documented By: SKYLAR Apixaban (Apixaban 5 Mg Tablet) 5 mg PO BID [facility] Last Admin: 10/06/24 09:00 Dose: 5 mg Documented By: SKYLAR Atorvastatin Calcium (Atorvastatin Calcium 10 Mg Tablet) 10 mg PO DAILY [facility] Last Admin: 10/06/24 09:00 Dose: 10 mg Documented By: SKYLAR Bupropion HCl (Bupropion Hcl Xl 150 Mg Tab.Er.24h) 150 mg PO DAILY [facility] Last Admin: 10/06/24 09:01 Dose: 150 mg Documented By: SKYLAR Gabapentin (Gabapentin 300 Mg Capsule) 300 mg PO TID [facility] Last Admin: 10/06/24 09:00 Dose: 300 mg Documented By: SKYLAR Dextrose (D10) 250 mls @ 750 mls/hr IV Q15M PRN PRN Reason: per Hypoglycemia Standing Ord. Levothyroxine Sodium (Levothyroxine Sodium 25 Mcg Tablet) 25 mcg PO DAILY@0600 [facility] Last Admin: 10/06/24 05:17 Dose: 25 mcg Documented By: KARAN Lidocaine (Lidocaine 4 % Patch Adh..Patch) 1 patch TRANSDERMA DAILY [facility]; Protocol Last Admin: 10/06/24 09:01 Dose: 1 patch Documented By: SKYLAR Lidocaine HCl (Lidocaine Hcl Viscous 2 % 15 Ml Solution) 1 ml MUCOUS MEM QID PRN PRN Reason: mouth sores Lidocaine/Diphenhydr/Alum/Mg/Simeth (Mag&Al/Sim/Diphenhyd/Lidocaine 10 Ml Oral.Susp) 10 ml PO QID PRN PRN Reason: sores Non-Formulary Medication (Lenvatinib [Lenvima]) 20 mg PO DAILY [facility] Ondansetron HCl (Ondansetron Hcl 4 Mg/2 Ml Vial) 4 mg IVPUSH Q8H PRN PRN Reason: Nausea and Vomiting Last Admin: 10/01/24 18:00 Dose: 4 mg Documented By: PILY Sodium Chloride (0.9 % Sodium Chloride Flush 3 Ml Syringe) 3 ml IVFLUSH QSHIFT [facility] Last Admin: 10/06/24 09:00 Dose: 3 ml Documented By: SKYLAR Vitamin D (Cholecalciferol (Vitamin D3) 25 Mcg Tablet) 50 mcg PO DAILY [facility] Last Admin: 10/06/24 09:00 Dose: 50 mcg Documented By: SKYLAR Labs 09/27/24 17:10 09/27/24 17:10 Labs: Laboratory Results - last 24 hr 10/05/24 10/05/24 10/06/24 12:23 16:54 00:36 POC Glucose 174 H 90 84 10/06/24 10/06/24 06:12 11:39 POC Glucose 105 109 Assessment and Plan (1) Weakness: Status: Acute (2) Acute metabolic encephalopathy: Status: Acute (3) Hypoglycemia: Status: Acute (4) Metastatic renal cell carcinoma to lung: Status: Acute Plan 69-year-old female with widely metastatic renal cell carcinoma admitted to physician observation secondary to weakness. Was admitted to physician observation and during that time a rapid response was called for change in mental status and minimally responsiveness. Patient seen examined. Chest x-ray so far unremarkable. Point of care 52 given 1 amp of D50 with good results. Remaining workup pending 1. Generalized weakness due to metastatic renal cell carcinoma -awake alert, pleasantly confused -tolerating pureed and thin liquid diet speech recommend to take medicines crushed in puree, -family decided DNR DNI. -physical therapy recommend long-term care versus 247 care at home -CM arranging for safe disposition 2. Hypoglycemia. .. Likely related to poor p.o. intake, blood sugar improved and remained stable 3. Mental health continue amitriptyline, bupropion, and gabapentin 4. Hypertension stable blood pressure ,nifedipine discontinued 5. Hypothyroidism on po levothyroxine 6. Acute metabolic encephalopathy resolved likely was due to hypoglycemia , now seems to be at baseline as per with ongoing forgetfulness times several months,nl b12 and folate ,tsh 8.[address] head unremarkable Family requested imaging study of brain to rule out metastatic disease, CT brain with contrast obtained that showed no acute abnormality 7. Moderate malnutrition continue supplements 8. History of PE on Eliquis dvt : Eliquis DNR DNI Seen by Physical therapy they recommend long-term care versus 247 care, unable to provide care at home high risk case manager will arrange for safe disposition. Quality Stroke Does the patient have a stroke diagnosis?: No VTE Prior VTE?: No VTE Risk Level:: Medical - moderate - high VTE Device Contraindication: Treatment Not Indicated VTE Drug Contraindication: N/A - Med Ordered
[2024-10-06 13:16] LABS: Anion Gap 9 (12-20); Blood Urea Nitrogen 8 mg/dL (9-16); Calcium 9.1 mg/dL (8.4-10.2); Carbon Dioxide 31 mmol/L (22-29); Chloride 92 mmol/L (96-108); Creatinine Clr Calc Pharmacy 65.1; Estimated Glomerular Filt Rate > 60; Glucose Random 95 mg/dL (60-115); Potassium 4.3 mmol/L (3.3-5.1); Sodium 128 mmol/L (135-145)
[2024-10-06] MEDS: 0.9 % Sodium Chloride 1,000 ML 100 ML IVCONT (17:47)
[2024-10-06 18:03] LABS: Glucose, Whole Blood 91 mg/dL (60-115)
[2024-10-07 00:27] LABS: Glucose, Whole Blood 126 mg/dL (60-115)
[2024-10-07 03:31] VITALS: BP 156/78; PULSE 86; RESP 16; TEMP 36; O2SAT 97
[2024-10-07] MEDS: Levothyroxine Sodium 25 MCG TABLET PO (06:11)
[2024-10-07 06:29] LABS: Glucose, Whole Blood 90 mg/dL (60-115)
[2024-10-07 07:28] LABS: Anion Gap 11 (12-20); Blood Urea Nitrogen 7 mg/dL (9-16); Calcium 8.9 mg/dL (8.4-10.2); Carbon Dioxide 26 mmol/L (22-29); Chloride 94 mmol/L (96-108); Creatinine Clr Calc Pharmacy 71.1; Estimated Glomerular Filt Rate > 60; Glucose Random 91 mg/dL (60-115); Potassium 4.4 mmol/L (3.3-5.1); Sodium 127 mmol/L (135-145)
[2024-10-07 07:44] VITALS: BP 136/80; PULSE 88; RESP 18; TEMP 36.2; O2SAT 96
[2024-10-07] MEDS: Apixaban 5 MG TABLET PO ×2 (08:03→20:59)
[2024-10-07] MEDS: 0.9 % Sodium Chloride Flush 3 ML SYRINGE IVFLUSH ×2 (08:03→16:23)
[2024-10-07] MEDS: Cholecalciferol (Vitamin D3) 25 MCG TABLET 50 MCG PO (08:03)
[2024-10-07] MEDS: Atorvastatin Calcium 10 MG TABLET PO (08:04)
[2024-10-07] MEDS: Lidocaine 4 % Patch ADH..PATCH 1 PATCH TRANSDERMA (08:04)
[2024-10-07] MEDS: Gabapentin 300 MG CAPSULE PO ×2 (08:04→20:58)
[2024-10-07] MEDS: buPROPion HCl XL 150 MG TAB.ER.24H PO (08:04)
[2024-10-07] MEDS: Amitriptyline HCl 25 MG TABLET 75 MG PO (08:04)
[2024-10-07 11:27] VITALS: BP 120/53; PULSE 73; RESP 19; TEMP 36.7; O2SAT 100
[2024-10-07 11:35] LABS: Glucose, Whole Blood 117 mg/dL (60-115)
--- NOTE | 2024-10-07 13:44 | MHC.CM.PN ---
EMR reviewed and per MD rounds, pt is medically cleared pending safe discharge placement. LTC bed offer received from [facility]. This CM called and spoke with pts /Kwaku to discuss the discharge plan, and they accept the bed at [facility]. [facility] has gone for insurance auth. Per Kwaku's request this CM placed a call to alternate HCP/daughter Vanna, to update her, voicemail left, awaiting return call.
--- NOTE | 2024-10-07 14:04 | MHC.CLN ---
F/U PT IS MODERATELY MALNOURISHED PO INTAKE REMAINS POOR-EXPECTED DIET ADVANCED TO PUREED WITH ENSURE TID SUPPLEMENT PROVIDES 1050 KCALS, 60G PROTEIN MONITOR PO INTAKE AND ENCOURAGE SUPPLEMENTS
--- NOTE | 2024-10-07 14:43 | MHC.SLORD ---
Speech Language Pathology Order Status: Pt sleeping, at bedside. Pt has resumed some PO intake, POC reviewed with pt . noted pt likes ice cream. D/c pending at this time, pt will continue to benefit from [employer] at the next setting d/t nature of dysphagia.
[2024-10-07 15:28] VITALS: BP 152/85; PULSE 86; RESP 18; TEMP 36.1; O2SAT 94
--- NOTE | 2024-10-07 15:28 | HO.PM.IMPN ---
Subjective Subjective Date of Service: 10/07/24 Interval History: No acute issues overnight. Taking adequate p.o. Review of Systems Denies chest pain Denies shortness of breath Denies nausea vomiting diarrhea Denies fever chills Physical Exam Vital Signs: Vital Signs: Last Vital Signs Temp 98.0 F 10/07/24 11:27 Pulse 73 10/07/24 11:27 Resp 19 10/07/24 11:27 BP 120/53 L 10/07/24 11:27 Pulse Ox 100 10/07/24 11:27 O2 Del Method Room Air 10/07/24 11:27 O2 Flow Rate 1 10/06/24 03:23 Oxygen Flow Rate 15 09/27/24 16:05 BMI result Body Mass Index 18.0 Const: Other: Awake alert no acute distress Resp: Other: Clear to auscultation bilaterally no rales rhonchi or wheezes Cardio: Other: No S4; positive S1-S2; no S3 murmurs rubs or gallops GI: Other: Soft nontender nondistended with normoactive bowel sounds Extrem: Other: No edema bilaterally Objective Data Active Medications Acetaminophen (Acetaminophen 325 Mg Tablet) 650 mg PO Q6H PRN PRN Reason: Pain, Mild 1-3,fever,headache Last Admin: 10/05/24 17:06 Dose: 650 mg Documented By: DOLORES Amitriptyline HCl (Amitriptyline Hcl 25 Mg Tablet) 75 mg PO DAILY [facility] Last Admin: 10/07/24 08:04 Dose: 75 mg Documented By: ANGELICA Apixaban (Apixaban 5 Mg Tablet) 5 mg PO BID [facility] Last Admin: 10/07/24 08:03 Dose: 5 mg Documented By: ANGELICA Atorvastatin Calcium (Atorvastatin Calcium 10 Mg Tablet) 10 mg PO DAILY [facility] Last Admin: 10/07/24 08:04 Dose: 10 mg Documented By: ANGELICA Bupropion HCl (Bupropion Hcl Xl 150 Mg Tab.Er.24h) 150 mg PO DAILY [facility] Last Admin: 10/07/24 08:04 Dose: 150 mg Documented By: ANGELICA Gabapentin (Gabapentin 300 Mg Capsule) 300 mg PO TID [facility] Last Admin: 10/07/24 08:04 Dose: 300 mg Documented By: ANGELICA Dextrose (D10) 250 mls @ 750 mls/hr IV Q15M PRN PRN Reason: per Hypoglycemia Standing Ord. Levothyroxine Sodium (Levothyroxine Sodium 25 Mcg Tablet) 25 mcg PO DAILY@0600 [facility] Last Admin: 10/07/24 06:11 Dose: 25 mcg Documented By: DI Lidocaine (Lidocaine 4 % Patch Adh..Patch) 1 patch TRANSDERMA DAILY [facility]; Protocol Last Admin: 10/07/24 08:04 Dose: 1 patch Documented By: ANGELICA Lidocaine HCl (Lidocaine Hcl Viscous 2 % 15 Ml Solution) 1 ml MUCOUS MEM QID PRN PRN Reason: mouth sores Lidocaine/Diphenhydr/Alum/Mg/Simeth (Mag&Al/Sim/Diphenhyd/Lidocaine 10 Ml Oral.Susp) 10 ml PO QID PRN PRN Reason: sores Ondansetron HCl (Ondansetron Hcl 4 Mg/2 Ml Vial) 4 mg IVPUSH Q8H PRN PRN Reason: Nausea and Vomiting Last Admin: 10/01/24 18:00 Dose: 4 mg Documented By: PILY Sodium Chloride (0.9 % Sodium Chloride Flush 3 Ml Syringe) 3 ml IVFLUSH QSHIFT [facility] Last Admin: 10/07/24 08:03 Dose: 3 ml Documented By: ANGELICA Vitamin D (Cholecalciferol (Vitamin D3) 25 Mcg Tablet) 50 mcg PO DAILY [facility] Last Admin: 10/07/24 08:03 Dose: 50 mcg Documented By: ANGELICA Labs 09/27/24 17:10 10/07/24 06:55 Labs: Laboratory Results - last 24 hr 10/06/24 10/07/24 10/07/24 17:59 00:23 06:25 Anion Gap Estim Creat Clear Calc Estimated GFR POC Glucose 91 126 H 90 Random Glucose Calcium 10/07/24 10/07/24 06:55 11:31 Anion Gap 11 L Estim Creat Clear Calc 71.1 Estimated GFR > 60 POC Glucose 117 H Random Glucose 91 Calcium 8.9 Assessment and Plan (1) Metastatic renal cell carcinoma to lung: Status: Acute Plan 69-year-old female with widely metastatic renal cell carcinoma admitted to physician observation secondary to weakness. Was admitted to physician observation and during that time a rapid response was called for change in mental status and minimally responsiveness. Patient seen examined. Chest x-ray so far unremarkable. Point of care 52 given 1 amp of D50 with good results. Remaining workup pending 1. Generalized weakness due to metastatic renal cell carcinoma -tolerating pureed and thin liquid diet speech recommend to take medicines crushed in puree, -family decided DNR DNI... Now accepted bed at [facility]. Awaiting authorization -to long-term rehab once authorization obtained 2. Depression -stable and well compensated 3. Hypertension -acceptable control on current therapies -adjust as indicated 5. Hypothyroidism - levothyroxine 6.. History of PE -Carlotta Laguerre DNR DNI Awaiting long-term care placement Quality Stroke Does the patient have a stroke diagnosis?: No VTE Prior VTE?: No VTE Risk Level:: Medical - moderate - high VTE Device Contraindication: Treatment Not Indicated VTE Drug Contraindication: N/A - Med Ordered
--- NOTE | 2024-10-07 15:48 | P.CDIM_ITS ---
PROVIDER RESPONSE TEXT: To clarify, the appropriate diagnosis supported by the clinical indicators: Hyponatremia: probable QUERY TEXT: PHYSICIAN'S DOCUMENTATION REQUEST Date of Query: 10/07/2024 11:42 AM EST Patient Name: Elina Stewart Admit Date: 09/27/2024 Dear Adryan Umanzor DO, A review of the medical record indicates additional documentation may be needed. Please review below and update the documentation accordingly. Clinical Indicators: LABS: sodium 128 L 127 L Fluids Based on the above, is there a diagnosis that correlates with these lab findings: Hyponatremia possible, probable, suspected, resolved etc. Labs indicate a diagnosis of (please specify) Other (explain) Clinically unable to determine (explain) Thank you, Toma Bernal, CCS, CDIS Use of terms such as suspected, likely, concern for, or probable (associated with a specific diagnosi s that is being evaluated, monitored, or treated as if it exists) are acceptable and can be coded in the inpatient se tting, when documented at the time of discharge. Please use your independent medical judgment in providing your response. THIS QUERY IS PART OF THE PERMANENT MEDICAL RECORD
[2024-10-07 18:17] LABS: Glucose, Whole Blood 92 mg/dL (60-115)
[2024-10-07 19:47] VITALS: BP 145/73; PULSE 92; RESP 16; TEMP 36.2; O2SAT 100
[2024-10-07] MEDS: Acetaminophen 325 MG TABLET 650 MG PO (20:59)
[2024-10-07 23:55] VITALS: BP 147/80; PULSE 79; RESP 16; TEMP 36; O2SAT 97
[2024-10-08 00:07] LABS: Glucose, Whole Blood 98 mg/dL (60-115)
[2024-10-08 03:20] VITALS: BP 163/92; PULSE 82; RESP 16; TEMP 36; O2SAT 93
[2024-10-08] MEDS: Levothyroxine Sodium 25 MCG TABLET PO (05:26)
[2024-10-08 06:04] LABS: Glucose, Whole Blood 90 mg/dL (60-115)
[2024-10-08 07:22] VITALS: BP 135/73; PULSE 85; RESP 18; TEMP 36.3; O2SAT 99
--- NOTE | 2024-10-08 09:13 | P.DS_ITS ---
DS: Providers Provider Date of Service: 10/08/24 Date of admission: 09/27/24 16:44 Date of discharge: 10/08/24 Primary care physician: Dominic Lin MD Consults: 09/26/24 17:09 Consult to Case Management Routine Comment: 09/26/24 18:37 Consult to Hematology / Oncology Routine Consulting Provider: [facility] Oncology/Hematology Reason for consultation: lethargy/discuss goals of care DS: Diagnosis Discharge Diagnosis (1) Metastatic renal cell carcinoma to lung: Status: Acute DS: Summary Hospital Course Hospital Course: 69-year-old female with history of metastatic renal cell carcinoma with metastasis to lungs and liver, COPD on oxygen at baseline, GERD, recently treated for UTI and pneumonia/sepsis presenting via EMS with increased weakness and lethargy. Admitted here on 09/16 with discharge on 09/20. Patient states that she was able to ambulate at home after recent hospital discharge, but has become more weak over the past few days. Complains of right shoulder pain worse with movement. (09/26/2024). Patient was seen in response to a rapid response called for ER overflow. Patient was minimally responsive with mild hypo tension. Initial chest x-ray unremarkable; blood sugar 52. Given 1 amp of D50 with good results. Patient will be admitted to the medical service at this point in time as family requesting she remain a full code Hospital Course Patient seen and admitted to telemetry. Intermittent periods of responsiveness but ultimately became more alert with IV fluids/dextrose. This patient was seen several times by speech and ultimately was cleared for diet. Long discussion with family regarding advance directives. Explained to family that this metastatic disease is advanced; family decided DNR DNI however are not ready for hospice. At this point in time family is unable to care for patient at home and she will be admitted to long-term care. Family understands that going forward, decision will have to be made about hospice care. At family's request, CTA of head was done which demonstrated no metastatic disease. At this point she is medically acceptable for discharge Time Attestation Discharge Coordination Time (in mins): 35 Quality: Safe Use of Opioids Does Pt have an Active Cancer Diagnosis on the Problem List?: No Quality: Stroke Does the patient have a stroke diagnosis?: No Physical Exam Vital Signs: Vital Signs: Last Vital Signs Temp 97.3 F 10/08/24 07:22 Pulse 85 10/08/24 07:22 Resp 18 10/08/24 07:22 BP 135/73 10/08/24 07:22 Pulse Ox 99 10/08/24 07:22 O2 Del Method Room Air 10/08/24 07:22 O2 Flow Rate 1 10/06/24 03:23 Oxygen Flow Rate 15 09/27/24 16:05 BMI result Body Mass Index 18.0 Const: Other: Awake alert no acute distress Resp: Other: Clear to auscultation bilaterally no rales rhonchi or wheezes Cardio: Other: No S4; positive S1-S2; no S3 murmurs rubs or gallops GI: Other: Soft nontender nondistended with normoactive bowel sounds Extrem: Other: No edema bilaterally DS: Data Data Completed and Pending Completed studies during hospitalization [Text1]: Procedures Drainage of Right Pleural Cavity with Drainage Device, Percutaneous Endoscopic Approach (10/06/23) Excision of Right Middle Lung Lobe, Percutaneous Endoscopic Approach, Diagnostic (10/06/23) Release Right Middle Lung Lobe, Percutaneous Endoscopic Approach (10/06/23) Release Right Upper Lung Lobe, Percutaneous Endoscopic Approach (10/06/23) Labs on day of discharge: Laboratory Results - last 24 hr 10/07/24 10/07/24 10/08/24 11:31 18:12 00:02 POC Glucose 117 H 92 98 10/08/24 06:00 POC Glucose 90 Discharge Plan Discharge Anticipated Discharge Date/Time: 10/08/24 09:09 Patient Disposition: Xfer [facility] Discharge Diagnosis: Weakness secondary to metastatic renal cell carcinoma Referrals: Dominic Lin MD [Primary Care Provider] - 1 Week Discharge Medications: New lidocaine [Lidocaine Pain Relief] 4 % Adhesive Patch,Medicated 1 patch transdermal DAILY Qty: 30 0RF Protocol: Apply to: Apply to: right shoulder Continued nifedipine 30 mg tablet extended release 30 mg PO DAILY Qty: 90 3RF atorvastatin 10 mg tablet 10 mg PO DAILY Qty: 90 2RF gabapentin 400 mg capsule 400 mg PO TID Qty: 270 1RF amitriptyline 75 mg tablet 75 mg PO DAILY Qty: 90 1RF bupropion HCl 150 mg tablet extended release 24 hr 150 mg PO QAM Qty: 90 1RF cholecalciferol (vitamin D3) 50 mcg (2,000 unit) capsule 50 mcg PO DAILY 90 Days Qty: 90 0RF clonazepam 0.5 mg tablet 1 mg PO BEDTIME Lenvima 10 mg/day (10 mg x 1) Capsule 20 mg PO DAILY Qty: 60 4RF Rx Instructions: 04/23/24 - reduce daily dose to Lenvima 10 mg PO Daily Eliquis 5 mg Tablet 5 mg PO BID Qty: 60 6RF levothyroxine [Synthroid] 25 mcg tablet 25 mcg PO DAILY@0600 lidocaine HCl [Lidocaine Viscous] 2 % solution 1 appl MUCOUS MEMBRANE QID PRN (Reason: mouth sores) Magic Mouthwash Diphen/Lido/Antacid 1:1:1 240 mL suspension 10 ml PO QID PRN (Reason: sores) Rx Instructions: Lidocaine Viscous 2 % 80mL; diphenhydramine 12.5 mg/5 mL 80mL; aluminum-mag hydrox-simeth [id number]/5mL 80mL Discontinued cefuroxime axetil 500 mg tablet 500 mg PO BID Qty: 8 0RF Discharge Orders: Discharge Order (Routine); Ordered 10/08/24 Ordered By: Adryan Umanzor Diet: Advance to usual diet Activity on Discharge: As tolerated Stand Alone Forms: Patient Portal Discharge page Print Language: Maori Care Plan Goals: Meds as ordered on transfer sheet Health Concerns: Follow with speech therapy at receiving facility Plan of Treatment: As per receiving physician/facility Assessment: See discharge summary
--- NOTE | 2024-10-08 09:16 | MHC.CM.PN ---
Second IMM given 10/08, addressed with pts /HCP Kwaku at [phone], copy to be sent via certified mail. Insurance auth received for pt to go to [facility] for LTC, pt will transport there via [employer] today. [facility] auth received (booking ID# [id number]). Per Kwaku's request, this CM called pts daughter/alternate HCP Vanna to update her.
[2024-10-08] MEDS: buPROPion HCl XL 150 MG TAB.ER.24H PO (10:30)
[2024-10-08] MEDS: Amitriptyline HCl 25 MG TABLET 75 MG PO (10:30)
[2024-10-08] MEDS: Gabapentin 300 MG CAPSULE PO (10:30)
[2024-10-08] MEDS: Apixaban 5 MG TABLET PO (10:30)
[2024-10-08] MEDS: Cholecalciferol (Vitamin D3) 25 MCG TABLET 50 MCG PO (10:30)
[2024-10-08] MEDS: Atorvastatin Calcium 10 MG TABLET PO (10:30)
[2024-10-08 11:08] VITALS: BP 141/75; PULSE 88; RESP 17; TEMP 36.6; O2SAT 97
[2024-10-08 11:41] LABS: Glucose, Whole Blood 114 mg/dL (60-115)
== END 2024-10-08 12:33 | DRG 640 ==
LOC: HO.ED 09-27 15:57 → HO.EDOVER 09-27 18:55 → HO.IMC 09-27 19:33
PROVIDERS: Hospitalist; Registered Nurse Emergency; Admitting Provider Hospitalist; Emergency Provider Emergency Medicine; PCP Internal Medicine; Visit Provider Hospitalist
DX: E16.2 Hypoglycemia, unspecified (principal); G93.41 Metabolic encephalopathy; C64.2 Malignant neoplasm of left kidney, except renal pelvis; E44.0 Moderate protein-calorie malnutrition; Z68.1 Body mass index [BMI] 19.9 or less, adult; C78.01 Secondary malignant neoplasm of right lung; C78.02 Secondary malignant neoplasm of left lung; C78.7 Secondary malignant neoplasm of liver and intrahepatic bile duct; E87.0 Hyperosmolality and hypernatremia; Z66 Do not resuscitate; E03.9 Hypothyroidism, unspecified; J44.9 Chronic obstructive pulmonary disease, unspecified; F32.A Depression, unspecified; Z99.81 Dependence on supplemental oxygen; Z90.5 Acquired absence of kidney; Z86.711 Personal history of pulmonary embolism; Z20.822 Contact with and (suspected) exposure to COVID-19; Z79.01 Long term (current) use of anticoagulants; Z79.890 Hormone replacement therapy; Z79.899 Other long term (current) drug therapy
CPT/HCPCS: 0241U; 36415; 70450; 70460; 71045; 73030; 80048; 80053; 81003; 82803; 82947; 83605; 83735; 84145; 85025; 86140; 87040; 92610; 97161; 97530; 99285; C1758; J0651; J1650; J2060; J2270; J2405; Q9967

== ENCOUNTER → 2024-09-26 12:08 | Outpatient (BNV) | payer OTHER, SELFPAY | PROVIDERS: Emergency Provider Emergency Medicine; PCP Internal Medicine; Visit Provider Radiology Diagnostic Radiology | DX: M75.31 Calcific tendinitis of right shoulder (principal); M19.011 Primary osteoarthritis, right shoulder; J18.9 Pneumonia, unspecified organism | CPT/HCPCS: 71045; 73030 ==

== ENCOUNTER → 2024-09-26 12:35 | Outpatient (BNV) | payer OTHER, SELFPAY | PROVIDERS: Emergency Provider Emergency Medicine; PCP Internal Medicine; Visit Provider Hospitalist | DX: C78.01 Secondary malignant neoplasm of right lung (principal); C64.9 Malignant neoplasm of unspecified kidney, except renal pelvis | CPT/HCPCS: 99222; 99232 ==

== ENCOUNTER → 2024-09-27 16:20 | Outpatient (BNV) | payer OTHER, SELFPAY | PROVIDERS: Emergency Provider Emergency Medicine; PCP Internal Medicine; Visit Provider Radiology Diagnostic Radiology | DX: R06.02 Shortness of breath (principal) | CPT/HCPCS: 71045 ==

== ENCOUNTER 2024-09-27 16:44 | Outpatient (BNV) | payer OTHER, SELFPAY | END 2024-10-05 13:40 | PROVIDERS: Admitting Provider Hospitalist; Emergency Provider Emergency Medicine; PCP Internal Medicine; Visit Provider Radiology Diagnostic Radiology | DX: R41.82 Altered mental status, unspecified (principal); R53.1 Weakness | CPT/HCPCS: 70460 ==

== ENCOUNTER → 2024-09-27 16:44 | Outpatient (BNV) | payer OTHER, SELFPAY | PROVIDERS: Admitting Provider Hospitalist; Emergency Provider Emergency Medicine; PCP Internal Medicine; Visit Provider Internal Medicine Medical Oncology | DX: C78.7 Secondary malignant neoplasm of liver and intrahepatic bile duct (principal) | CPT/HCPCS: 99222 ==